=== PATIENT | female | born 1945 | race African-American/Black ===

== ENCOUNTER 2016-09-14 05:55 | Inpatient (IN) | payer OTHER, MEDICARE ==
[2016-09-14] VITALS (9 sets, daily range): BP systolic 121–200; BP diastolic 88–106; PULSE 55–89; RESP 16–18; TEMP 95.5–98.8; O2SAT 93–99
[~2016-09-14] VITALS: Ht 162.6 cm; Wt 59.8 kg
[~2016-09-14 05:55] MED LIST: CARV12.5 PO; CLON0.2T PO; FURO20TA PO; HYDRA25 PO; LOSA25 PO; ZOLO50TA PO
--- NOTE | 2016-09-14 06:37 | PD ---
HPI Chief Complaint: Fall Time Seen by Provider: 06:34 Travel History International Travel<30 days: No Contact w/Intl Traveler<30days: No Traveled to known affect area: No History of Present Illness HPI 70-year-old female arrives to the ER by EMS. She fell out of bed while asleep this morning. EMS was called and she was unable to ambulate or stand on her own. She was therefore brought to the ER. She does complain of pain in the right hip upon palpation in the region of the greater trochanter. High blood pressure observed by EMS as well. Compliance with antihypertensives is unknown. None is listed. EMS reports no medications and no PMH. PFSH Past Medical History Hx Anticoagulant Therapy: No Arthritis: No Asthma: No Autoimmune Disease: No Blood Disorders: No Anxiety: No Depression: Yes Heart Rhythm Problems: No Cancer: No Cardiac Catheterization: Yes Cardiovascular Problems: Yes High Cholesterol: No Chemotherapy: No Chest Pain: No Congestive Heart Failure: No COPD: No Cerebrovascular Accident: Yes Diabetes: No Diminished Hearing: No Endocrine: No Gastrointestinal Disorders: Yes GERD: No Glaucoma: No Gout: Yes Genitourinary: No Headaches: No Hiatal Hernia: No Hypertension: Yes Immune Disorder: No Kidney Stones: No Musculoskeletal: Yes Neurologic: Yes Psychiatric: No Reproductive: Yes Respiratory: No Myocardial Infarction: No Radiation Therapy: No Renal Failure: No Seizures: No Sickle Cell Disease: No Sleep Apnea: No Thyroid Disease: No Ulcer: No Influenza Vaccination: No Menopausal: Yes : 12 Para: 9 Miscarriage: 3 Tubal Ligation: Yes Past Surgical History Abdominal Surgery: No AICD: No Cardiac Surgery: No Ear Surgery: No Endocrine Surgery: No Eye Surgery: No Genitourinary Surgery: No Gynecologic Surgery: Yes (TUBAL) Joint Replacement: No Neurologic Surgery: No Oral Surgery: No Pacemaker: No Thoracic Surgery: No Other Surgery: Yes (LEFT LEG FOR CIRCULATION) Social History Alcohol Use: No Tobacco Use: Yes Substance Use: No Allergies-Medications (Allergen,Severity, Reaction): Coded Allergies: No Known Allergies (Verified , 09/14/16) Reported Meds & Prescriptions Reported Meds & Active Scripts Active Review of Systems Except as stated in HPI: all other systems reviewed are Neg General / Constitutional: No: Fever, Chills Musculoskeletal: Positive: Pain Physical Exam Narrative GENERAL: 70 yo F, somewhat lethargic but answering questions, odor of urine, ? UTI SKIN: Warm and dry. HEAD: Atraumatic. Normocephalic. EYES: Pupils equal and round. No scleral icterus. No injection or drainage. ENT: No nasal bleeding or discharge. Mucous membranes pink and moist. NECK: Trachea midline. No JVD. CARDIOVASCULAR: Regular rate and rhythm. RESPIRATORY: No accessory muscle use. Clear to auscultation. Breath sounds equal bilaterally. GASTROINTESTINAL: Abdomen soft, non-tender, nondistended. Hepatic and splenic margins not palpable. MUSCULOSKELETAL: Extremities without clubbing, cyanosis, or edema. No obvious deformities. Tenderness to palpation overlying the region of the greater trochanter. Tenderness with axial load. NEUROLOGICAL: Awake and alert. No obvious cranial nerve deficits. Motor grossly within normal limits. Five out of 5 muscle strength in the arms and legs. Normal speech. PSYCHIATRIC: Appropriate mood and affect; insight and judgment normal. Data Data Last Documented VS Vital Signs Date Time Temp Pulse Resp B/P Pulse Ox O2 Delivery O2 Flow Rate FiO2 09/14/16 05:59 98.8 89 16 121/104 93 VS reviewed Orders Electrocardiogram (09/14/16 06:34) Complete Blood Count With Diff (09/14/16 06:34) Comprehensive Metabolic Panel (09/14/16 06:34) Prothrombin Time / Inr (Pt) (09/14/16 06:34) Act Partial Throm Time (Ptt) (09/14/16 06:34) Urinalysis - C+S If Indicated (09/14/16 06:34) Chest, Single Ap (09/14/16 06:34) Femur (Ap & Lat/2vws) (09/14/16 06:34) Hip, Uni(Ap&Lat) W Ap Pelvis (09/14/16 06:34) Iv Access Insert/Monitor (09/14/16 06:34) Oximetry (09/14/16 06:34) Ecg Monitoring (09/14/16 06:34) Morphine Inj (Morphine Inj) (09/14/16 06:45) Ondansetron Inj (Zofran Inj) (09/14/16 06:45) Sodium Chloride 0.9% Flush (Ns Flush) (09/14/16 06:45) ^ Straight Catheter (09/14/16 06:36) Troponin I (09/14/16 06:36) Clonidine (Catapres) (09/14/16 06:45) MDM Medical Decision Making Medical Screen Exam Complete: Yes Emergency Medical Condition: Yes Medical Record Reviewed: Yes Differential Diagnosis UTI, electrolyte imbalance, hip fracture, rib fracture, pneumonia, dehydration Narrative Course Work up pending at time of dictation. Oncoming provider to follow up UA, labs, imaging. Favian Wynne MD Sep 14, 2016 06:37
[2016-09-14] MEDS ORDERED: SODIUM CHLORIDE 0.9% FLUSH 5 ML FLUSH IVF PRN (06:45)
[2016-09-14] MEDS ORDERED: ONDANSETRON HCL 4 MG/2 ML VIAL IVP ONE (06:45)
[2016-09-14] MEDS ORDERED: cloNIDine HCL 0.2 MG TAB PO ONE ×2 (06:45→09:30)
[2016-09-14] MEDS ORDERED: MORPHINE SULFATE 4 MG/ML INJ IV PUSH ONE (06:45)
[2016-09-14 07:10] LABS: AUTOMATED NEUTROPHIL # 3.3 TH/MM3 (1.8-7.7); BASOPHIL # 0.1 TH/MM3 (0-0.2); BASOPHIL % 1.1 % (0.0-2.0); EOSINOPHIL # 0.1 TH/MM3 (0-0.4); EOSINOPHIL % 2.2 % (0.0-4.0); HEMATOCRIT 32.1 % (35.0-46.0); HEMO FLAGS DIFF FINAL; LYMPH % 34.6 % (9.0-44.0); MEAN CELL VOLUME 87.5 FL (80.0-100.0); MEAN CORPUSCULAR HEMOGLOBIN 29.2 PG (27.0-34.0); MEAN CORPUSCULAR HGB CONC 33.4 % (32.0-36.0); MONO % 4.5 % (0.0-8.0); NEUT % 57.6 % (16.0-70.0); PLATELET COUNT 211 TH/MM3 (150-450); RED BLOOD COUNT 3.67 MIL/MM3 (4.00-5.30); RED CELL DISTRIBUTION WIDTH 13.9 % (11.6-17.2); WHITE BLOOD COUNT 5.7 TH/MM3 (4.0-11.0)
[2016-09-14 07:28] LABS: ANION GAP 9 MEQ/L (5-15); APTT (PATIENT) 29.9 SEC (24.3-30.1); AST (GOT) 22 U/L (15-37); BICARBONATE 19.6 MEQ/L (21.0-32.0); BLOOD UREA NITROGEN 46 MG/DL (7-18); CHLORIDE 110 MEQ/L (98-107); GLOMERULAR FILTRATION RATE 20 ML/MIN (>89); PROTHROMBIN TIME - PATIENT 11.4 SEC (9.8-11.6); SODIUM (NA) 139 MEQ/L (136-145)
[2016-09-14 07:30] LABS: BACTERIA, URINE FEW /hpf; BLOOD, URINE MOD (NEG); GLUCOSE,URINE NEG (NEG); KETONE, URINE NEG (NEG); NITRITE,URINE NEG (NEG); SQUAMOUS EPITHELIAL CELL URINE 8 /hpf (0-5); URINE COLOR LIGHT-YELLOW (YELLW/STRAW)
[2016-09-14 07:33] LABS: COMMENT (UR) CATH-CULTURE IND; CULTURE IF INDICATED CATH CULTURE IND
[2016-09-14 07:37] LABS: ALKALINE PHOSPHATASE 75 U/L (45-117); ALT (GPT) 24 U/L (10-53); TOTAL BILIRUBIN ADULT 0.4 MG/DL (0.2-1.0)
--- NOTE | 2016-09-14 07:53 | RADRPT ---
EXAM DATE/TIME: 09/14/2016 07:12 [facility] COMPARISON: No previous studies available for comparison. INDICATIONS : Pain from fall. MEDICAL HISTORY : None. SURGICAL HISTORY : None. ENCOUNTER: Initial ACUITY: 1 day PAIN SCORE: 5/10 LOCATION: Right femur. FINDINGS: Two view examination of the right femur demonstrates no evidence of fracture or dislocation. Bony mi neralization is reduced. The soft tissue structures are intact. Diffuse calcified plaque throughout t he outflow vessels. Some calcification of the menisci. See the hip reported separately. CONCLUSION: No acute abnormality. Fito Diaz Jr., MD on September 14, 2016 at 7:42 Board Certified Radiologist. This report was verified electronically.
--- NOTE | 2016-09-14 08:00 | RADRPT ---
EXAM DATE/TIME: 09/14/2016 07:19 [facility] COMPARISON: CHEST SINGLE AP, September 29, 2011, 11:44. INDICATIONS : Pain from fall. MEDICAL HISTORY : None. SURGICAL HISTORY : None. ENCOUNTER: Initial ACUITY: 1 day PAIN SCORE: 5/10 LOCATION: Back, midline. FINDINGS: A single supine frontal view of the chest shows mild cardiomegaly that is stable. Aorta is mildly tor tuous. Lungs are clear without infiltrate or effusion. Bony structures are unremarkable with the exce ption of a mild scoliotic curvature of the thoracic spine. CONCLUSION: Mild cardiomegaly. No acute cardio pulmonary disease. Fito Diaz Jr., MD on September 14, 2016 at 7:53 Board Certified Radiologist. This report was verified electronically.
--- NOTE | 2016-09-14 08:01 | RADRPT ---
EXAM DATE/TIME: 09/14/2016 07:09 [facility] COMPARISON: No previous studies available for comparison. INDICATIONS : Pain from fall. MEDICAL HISTORY : None. SURGICAL HISTORY : None. ENCOUNTER: Initial ACUITY: 1 day PAIN SCORE: 5/10 LOCATION: Right pelvis FINDINGS: Examination of the right hip was performed with AP Pelvis. The primary and secondary trabecular natalie serg of the femoral neck is intact. The hip joint is of normal width without significant sclerosis or bony hypertrophy. Diffuse osteopenia. The acetabulum is grossly intact. Atherosclerotic changes. CONCLUSION: Osteopenia. No acute abnormality. Fito Diaz Jr., MD on September 14, 2016 at 7:59 Board Certified Radiologist. This report was verified electronically.
[2016-09-14] MEDS: SODIUM CHLOR 0.9% 1000 ML INJ 1,000 ML IV SCH ×2 (09:15→20:05)
[2016-09-14] MEDS ORDERED: cefTRIAXone INJ 1,000 MG in SODIUM CHLORIDE 0.9% INJ 100 ML IV ONE (09:15)
[2016-09-14] MEDS ORDERED: NALOXONE HCL 0.4 MG/ML AMP IV PRN (09:30)
[2016-09-14] MEDS ORDERED: SODIUM CHLORIDE 0.9% FLUSH 5 ML FLUSH FLUSH PRN (09:30)
[2016-09-14] MEDS: CARVEDILOL 12.5 MG TAB PO SCH ×2 (09:57→20:04)
[2016-09-14] MEDS: HEPARIN SODIUM - SQ 10,000 UNITS/ML VIAL SQ SCH (09:57)
[2016-09-14] MEDS ORDERED: hydrALAZINE HCL 25 MG TAB PO ONE (10:00)
--- NOTE | 2016-09-14 10:09 | PD ---
Physical Exam Date Seen by Provider: Sep 14, 2016 Time Seen by Provider: 08:20 Narrative Shows sinus me by Dr. Hong Wynne at 7 AM. It was shift change. We're awaiting laboratory tests. The laboratory tests confirm a UTI. The patient also has acute on chronic kidney injury. Given this, patient will be admitted to the hospital Saturday hydration. She's also been started on Rocephin 1 g. I discussed the findings with both the patient and her family and they're amenable to the plan. Data Data Last Documented VS Vital Signs Date Time Temp Pulse Resp B/P Pulse Ox O2 Delivery O2 Flow Rate FiO2 09/14/16 08:50 77 17 200/106 98 Room Air 09/14/16 05:59 98.8 Orders Electrocardiogram (09/14/16 06:34) Complete Blood Count With Diff (09/14/16 06:34) Comprehensive Metabolic Panel (09/14/16 06:34) Prothrombin Time / Inr (Pt) (09/14/16 06:34) Act Partial Throm Time (Ptt) (09/14/16 06:34) Urinalysis - C+S If Indicated (09/14/16 06:34) Chest, Single Ap (09/14/16 06:34) Femur (Ap & Lat/2vws) (09/14/16 06:34) Hip, Uni(Ap&Lat) W Ap Pelvis (09/14/16 06:34) Iv Access Insert/Monitor (09/14/16 06:34) Oximetry (09/14/16 06:34) Ecg Monitoring (09/14/16 06:34) Morphine Inj (Morphine Inj) (09/14/16 06:45) Ondansetron Inj (Zofran Inj) (09/14/16 06:45) Sodium Chloride 0.9% Flush (Ns Flush) (09/14/16 06:45) ^ Straight Catheter (09/14/16 06:36) Troponin I (09/14/16 06:36) Clonidine (Catapres) (09/14/16 06:45) Urine Culture (09/14/16 06:45) Ceftriaxone Inj (Rocephin Inj) (09/14/16 09:15) Sodium Chlor 0.9% 1000 Ml Inj (Ns 1000 M (09/14/16 09:15) Clonidine (Catapres) (09/14/16 09:30) Admit Order (Ed Use Only) (09/14/16 09:26) Labs Laboratory Tests Test 09/14/16 06:45 White Blood Count 5.7 TH/MM3 Red Blood Count 3.67 MIL/MM3 Hemoglobin 10.7 GM/DL Hematocrit 32.1 % Mean Corpuscular Volume 87.5 FL Mean Corpuscular Hemoglobin 29.2 PG Mean Corpuscular Hemoglobin 33.4 % Concent Red Cell Distribution Width 13.9 % Platelet Count 211 TH/MM3 Mean Platelet Volume 9.6 FL Neutrophils (%) (Auto) 57.6 % Lymphocytes (%) (Auto) 34.6 % Monocytes (%) (Auto) 4.5 % Eosinophils (%) (Auto) 2.2 % Basophils (%) (Auto) 1.1 % Neutrophils # (Auto) 3.3 TH/MM3 Lymphocytes # (Auto) 2.0 TH/MM3 Monocytes # (Auto) 0.3 TH/MM3 Eosinophils # (Auto) 0.1 TH/MM3 Basophils # (Auto) 0.1 TH/MM3 CBC Comment DIFF FINAL Differential Comment Prothrombin Time 11.4 SEC Prothromb Time International 1.0 RATIO Ratio Activated Partial 29.9 SEC Thromboplast Time Urine Color LIGHT-YELLOW Urine Turbidity HAZY Urine pH 6.0 Urine Specific [place] 1.010 Urine Protein 100 mg/dL Urine Glucose (UA) NEG mg/dL Urine Ketones NEG mg/dL Urine Occult Blood MOD Urine Nitrite NEG Urine Bilirubin NEG Urine Urobilinogen LESS THAN 2.0 MG/DL Urine Leukocyte Esterase LARGE Urine RBC 70 /hpf Urine WBC 68 /hpf Urine WBC Clumps MANY Urine Squamous Epithelial 8 /hpf Cells Urine Bacteria FEW /hpf Microscopic Urinalysis Comment CATH-CULTURE IND Sodium Level 139 MEQ/L Potassium Level 4.0 MEQ/L Chloride Level 110 MEQ/L Carbon Dioxide Level 19.6 MEQ/L Anion Gap 9 MEQ/L Blood Urea Nitrogen 46 MG/DL Creatinine 2.82 MG/DL Estimat Glomerular Filtration 20 ML/MIN Rate Random Glucose 104 MG/DL Calcium Level 9.5 MG/DL Total Bilirubin 0.4 MG/DL Aspartate Amino Transf 22 U/L (AST/SGOT) Alanine Aminotransferase 24 U/L (ALT/SGPT) Alkaline Phosphatase 75 U/L Troponin I 0.22 NG/ML Total Protein 8.4 GM/DL Albumin 3.4 GM/DL [facility] Medical Record Reviewed: Yes Supervised Visit with ABBI: No Interpretation(s) Last Impressions Hip and Pelvis X-Ray 09/14/16633 Signed Impressions: Service Date/Time: Wednesday, September 14, 2016 07:09 - CONCLUSION: Osteopenia. No acute abnormality. Fito Diaz Jr., MD Femur X-Ray 09/14/16633 Signed Impressions: Service Date/Time: Wednesday, September 14, 2016 07:12 - CONCLUSION: No acute abnormality. Fito Diaz Jr., MD Chest X-Ray 09/14/16633 Signed Impressions: Service Date/Time: Wednesday, September 14, 2016 07:19 - CONCLUSION: Mild cardiomegaly. No acute cardio pulmonary disease. Fito Diaz Jr., MD Narrative Course 70-year-old female who had a fall. Patient presents with complaints of weakness. Patient also had right hip pain. X-ray the hip and pelvis show no fracture dislocation. Checks x-ray shows cardiomegaly otherwise negative for infiltrate or failure. The patient was given I V hydration at 84 cc per hour show some be given 1 g Rocephin. Case was discussed with Dr. Juanpablo Butler, on -call hospice, who is graciously agreed to admit the patient to his service. Diagnosis Primary Impression: UTI (urinary tract infection) Additional Impressions: [id number] kidney injury Dehydration Contusion, hip Issa Felton MD Sep 14, 2016 10:09
--- NOTE | 2016-09-14 11:42 | RADRPT ---
EXAM DATE/TIME: 09/14/2016 10:20 [facility] COMPARISON: No previous studies available for comparison. INDICATIONS : Abnormal labs. MEDICAL HISTORY : Stroke. Hypertension. Gout. SURGICAL HISTORY : Tubal ligation. ENCOUNTER: Initial ACUITY: 1 day PAIN SCORE: 4/10 LOCATION: Bilateral flank MEASUREMENTS: RIGHT KIDNEY: 8.3 x 4.2 x 5.0 cm LEFT KIDNEY: 9.7 x 4.9 x 5.5 cm FINDINGS: RIGHT KIDNEY: There is increased echogenicity throughout the renal parenchyma. No hydronephrosis. There is a questi onable echogenic stone in the lower pulmonary showing 1.8 cm. LEFT KIDNEY: There is increased echogenicity of the renal parenchyma Mild hydronephrosis. There is a cyst along th e upper pole measuring 2.9 cm. There is a cyst along the upper pole measuring 1.5 cm. BLADDER: Within normal limits given the degree of distension. CONCLUSION: 1. Increased echogenicity of the renal parenchyma. This is usually associated with chronic medical re nal disease. 2. Mild hydronephrosis of the left collecting system. 3. Benign appearing left renal cysts. 4. Possible nonobstructing right kidney stone. Recommend noncontrast CT abdomen as clinically indicat ed. Elías Mares MD on September 14, 2016 at 11:38 Board Certified Radiologist. This report was verified electronically.
--- NOTE | 2016-09-14 12:06 | HHI.HP ---
[facility] Sparkle Maldonado M.D. Admission Diagnosis Uti, acute on chronic kidney injury, uncontrolled hypertension. Diagnoses: Chief Complaint: fall, weakness Travel History International Travel<30 Days: No Contact w/Intl Traveler <30 Da: No Traveled to Known Affected Are: No History of Present Illness 70-year-old female with history of hypertension, edema, CKD, weakness presents after falling out the bed last night 09/13. The patient tried getting out of bed last night to use the restroom however fell from the bed. She was found this morning around 4am by family members. It is unknown how long she was on the floor. Per her daughters at bedside, the patient ran out of her medications 1 month ago and they have had trouble getting her into see her PCP Dr. Sparkle Maldonado. The family states when she was on the medications, she was more drowsy and slept a lot, however since she went off her medications, she has been more active over the past month. Now over the past 2 days, the patient has pretty much stayed in bed and slept, complained of being cold but no fevers. The family reports recent diarrhea approximately 2 weeks ago but it went away on its own. Denies any recent headache, lightheadedness, dizziness, unilateral numbness/weakness, chest pain, shortness of breath, or abdominal complaints. Denies any dysuria, suprapubic pain, increased urinary frequency/urgency. The patient did complain of right hip/leg pain upon arrival and was given IV morphine with relief however patient was quite drowsy throughout exam. Review of Systems ROS Limitations: Poor Historian Constitutional: COMPLAINS OF: Fatigue, Chills, DENIES: Diaphoretic episodes, Fever, Dizziness, Change in appetite Endocrine: DENIES: Polydipsia, Polyuria, Polyphagia Eyes: DENIES: Blurred vision, Vision loss, Double Vision Ears, nose, mouth, throat: DENIES: Throat pain, Running Nose, Sinus Pain, Odynophagia Respiratory: DENIES: Cough, Shortness of breath Cardiovascular: DENIES: Chest pain, Palpitations, Dyspnea on Exertion Gastrointestinal: DENIES: Abdominal pain, Constipation, Diarrhea, Nausea, Vomiting Genitourinary: COMPLAINS OF: Urinary incontinence, DENIES: Urinary frequency, Urgency, Dysuria Musculoskeletal: COMPLAINS OF: Joint pain, DENIES: Back pain, Neck pain Integumentary: DENIES: Abnormal pigmentation, Pruritus, Rash Hematologic/lymphatic: DENIES: Bruising, Lymphadenopathy Immunologic/allergic: DENIES: Eczema, Urticaria Neurologic: DENIES: Headache, Localized weakness, Paresthesias Psychiatric: DENIES: Anxiety, Depression Past Family Social History Past Medical History Hypertension Edema CKD Past Surgical History Tubal Ligation Cardiac catheterization 8 years ago reportedly clean Lower extremity vascular procedure Reported Medications Has not taken medications in 1 month, however previously on: fluoxetine clonidine PCP took her off lisinopril in the past due to her kidneys Allergies: Coded Allergies: No Known Allergies (Verified , 09/14/16) Active Ordered Medications Current Medications Medications (Trade) Dose Ordered Sig/Lenora Route Start Time Stop Time Status Last Admin (NS 1000 ml Inj) 1,000 ml @ 84 mls/hr [id number] IV 09/14/16 09:15 09/14/16 09:15 (NS Flush) 2 ml UNSCH PRN FLUSH 09/14/16 09:30 (NS Flush) 2 ml BID FLUSH 09/14/16 21:00 (Heparin Inj) 5,000 units Q12H SQ 09/14/16 10:00 09/14/16 09:57 (Narcan Inj) 0.4 mg UNSCH PRN IV 09/14/16 09:30 (Coreg) 12.5 mg Q12HR PO 09/14/16 10:00 09/14/16 09:57 (Apresoline) 25 mg Q12HR PO 09/14/16 21:00 Family History Patient does not remember family history. Social History Denies any tobacco, alcohol, or illicit drug use. Physical Exam Vital Signs Vital Signs Date Time Temp Pulse Resp B/P Pulse Ox O2 Delivery O2 Flow Rate FiO2 09/14/16 10:54 68 17 186/91 99 Room Air 09/14/16 09:29 97.8 70 17 200/100 97 Room Air 09/14/16 08:50 77 17 200/106 98 Room Air 09/14/16 07:34 17 2/24/17 07:27 76 17 98 Room Air 09/14/16 07:27 78 17 200/106 97 Room Air 09/14/16 07:27 17 98 Room Air 09/14/16 05:59 98.8 89 16 121/104 93 Physical Exam GENERAL: Well-nourished, well-developed elderly female patient in NAD. Drowsy. SKIN: Warm and dry. No rash. HEAD: Normocephalic. Atraumatic. EYES: Pupils equal and round. No scleral icterus. No injection or drainage. ENT: No nasal bleeding or discharge. Mucous membranes pink and moist. NECK: Supple. Trachea midline. CARDIOVASCULAR: Regular rate and rhythm. S1, S2 noted. No murmur appreciated. RESPIRATORY: No accessory muscle use. Clear to auscultation. Breath sounds equal bilaterally. GASTROINTESTINAL: Abdomen soft, non-tender, nondistended. Normoactive bowel sounds x4. MUSCULOSKELETAL: No obvious deformities. Trace bilateral lower extremity edema. NEUROLOGICAL: Awake and alert, but drowsy. No obvious cranial nerve deficits. Motor grossly within normal limits. 5/5 strength b/l upper extremities; wiggles toes but does not participate in strength testing of legs. Normal speech. No facial droop. PSYCHIATRIC: Appropriate mood and affect; insight and judgment limited. Laboratory Laboratory Tests Test 09/14/16 09/14/16 06:45 11:07 White Blood Count 5.7 Red Blood Count 3.67 Hemoglobin 10.7 Hematocrit 32.1 Mean Corpuscular Volume 87.5 Mean Corpuscular Hemoglobin 29.2 Mean Corpuscular Hemoglobin 33.4 Concent Red Cell Distribution Width 13.9 Platelet Count 211 Mean Platelet Volume 9.6 Neutrophils (%) (Auto) 57.6 Lymphocytes (%) (Auto) 34.6 Monocytes (%) (Auto) 4.5 Eosinophils (%) (Auto) 2.2 Basophils (%) (Auto) 1.1 Neutrophils # (Auto) 3.3 Lymphocytes # (Auto) 2.0 Monocytes # (Auto) 0.3 Eosinophils # (Auto) 0.1 Basophils # (Auto) 0.1 CBC Comment DIFF FINAL Differential Comment Prothrombin Time 11.4 Prothromb Time International 1.0 Ratio Activated Partial 29.9 Thromboplast Time Urine Color LIGHT-YELLOW Urine Turbidity HAZY Urine pH 6.0 Urine Specific [place] 1.010 Urine Protein 100 Urine Glucose (UA) NEG Urine Ketones NEG Urine Occult Blood MOD Urine Nitrite NEG Urine Bilirubin NEG Urine Urobilinogen LESS THAN 2.0 Urine Leukocyte Esterase LARGE Urine RBC 70 Urine WBC 68 Urine WBC Clumps MANY Urine Squamous Epithelial 8 Cells Urine Bacteria FEW Microscopic Urinalysis Comment CATH-CULTURE IND Sodium Level 139 Potassium Level 4.0 Chloride Level 110 Carbon Dioxide Level 19.6 Anion Gap 9 Blood Urea Nitrogen 46 Creatinine 2.82 Estimat Glomerular Filtration 20 Rate Random Glucose 104 Calcium Level 9.5 Total Bilirubin 0.4 Aspartate Amino Transf 22 (AST/SGOT) Alanine Aminotransferase 24 (ALT/SGPT) Alkaline Phosphatase 75 Troponin I 0.22 0.19 Total Protein 8.4 Albumin 3.4 Total Creatine Kinase 127 B-Type Natriuretic Peptide 990 Date/Time Procedure Status Source Growth 09/14/16 06:45 Urine Culture Received Urine Catheterized Urine Pending Result Diagram: 09/14/1645 09/14/1645 Imaging Last Impressions Hip and Pelvis X-Ray 09/14/16633 Signed Impressions: Service Date/Time: Wednesday, September 14, 2016 07:09 - CONCLUSION: Osteopenia. No acute abnormality. Fito Diaz Jr., MD Femur X-Ray 09/14/1634 Signed Impressions: Service Date/Time: Wednesday, September 14, 2016 07:12 - CONCLUSION: No acute abnormality. Fito Diaz Jr., MD Chest X-Ray 09/14/1634 Signed Impressions: Service Date/Time: Wednesday, September 14, 2016 07:19 - CONCLUSION: Mild cardiomegaly. No acute cardio pulmonary disease. Fito Diaz Jr., MD Renal Ultrasound 09/14/16 0000 Signed Impressions: Service Date/Time: Wednesday, September 14, 2016 10:20 - CONCLUSION: 1. Increased echogenicity of the renal parenchyma. This is usually associated with chronic medical renal disease. 2. Mild hydronephrosis of the left collecting system. 3. Benign appearing left renal cysts. 4. Possible nonobstructing right kidney stone. Recommend noncontrast CT abdomen as clinically indicated. Elías Mares MD Assessment and Plan Assessment and Plan 70-year-old female with history of hypertension, edema, CKD, weakness presents after falling out the bed last night. Generalized weakness/fatigue with encephalopathy: likely multifactorial secondary to UTI, hypertensive encephalopathy, CHF exacerbation, dehydration, and recent fall. See treatment below. Checking ABG. Hypertensive Encephalopathy secondary to Accelerated HTN: BP 200/106 upon arrival. Secondary to noncompliance with medications. S/p clonidine, hydralazine , coreg in the ED. BP still elevated. Started on hydralazine, Coreg, Nifedipine. Cannot have SHELL/ARB secondary to TRUDI/CKD. Monitor BP, adjust antihypertensives as needed. UTI: UA with large leuks, many WBCs. Continue with IV Rocephin. Monitor urine culture. Possible CHF Exacerbation: BNP elevated at 990. CXR with mild cardiomegaly, no acute findings, images reviewed by me. Trace edema of b/l lower extremities. Echo 09/06/15 showed normal systolic function EF 55-60%, mild MR, mild TR, mild to mod increased pulmonary arterial pressure. Hold diuresis for now, giving gentle hydration with IVF. 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 Elevated Troponins: no complaints of chest pain. EKG with no acute ST elevation/ depression. Trend enzymes/EKGs. Consulted cardiology. Monitor on telemetry. TRUDI on CKD, stage III: suspect hypertensive renal disease. RTUDI secondary to dehydration with decreased recent oral intake. Give gentle hydration with IVF at 84ml/hr. Avoid nephrotoxins. Monitor BMP. Pulmonary Hypertension: seen on previous echo as above. Consult pulmonology and cardiology. Fall, Hip Pain: pt fell out of bed prior to arrival. Hip/pelvis and femur xray negative for fracture. Consult PT. DVT Prophylaxis: heparin sq Written by Tri Banegas, acting as scribe for Dr. Butler on 09/14/16 at 12: 25. The documentation accurately reflects the work performed [id number] by me on at 12:25. Discussed Condition With Patient, 2 family members at bedside, ER Physician Certification 2 Midnight Certification Type: Admission for Inpatient Services Order for Inpatient Services The services are ordered in accordance with Medicare regulations or non- Medicare payer requirements, as applicable. In the case of services not specified as inpatient-only, they are appropriately provided as inpatient services in accordance with the 2-midnight benchmark. Estimated LOS (days): 3 days is the estimated time the patient will need to remain in the hospital, assuming treatment plan goals are met and no additional complications. Post-Hospital Plan: Not yet determined Tri Banegas PA-C Sep 14, 2016 12:06 Juanpablo Butler MD Sep 14, 2016 19:25
[2016-09-14 12:41] LABS: BLOOD GAS BASE EXCESS -6.9 mmol/L (-2-2); BLOOD GAS CARBOXYHEMOGLOBIN 2.1 % (0-4); BLOOD GAS HCO3 18 mmol/L (22-26); BLOOD GAS METHEMOGLOBIN 1.9 % (0-2); BLOOD GAS O2 HGB SATURATION 89 % (90-100); BLOOD GAS OXYGEN CONTENT 11.2 Vol % (12.0-20.0); BLOOD GAS PCO2 37 mmHg (38-42); BLOOD GAS PO2 68 mmHG (61-120); BLOOD GAS TOTAL HGB 8.9 G/DL (12.0-16.0); TEMP CORR TO 98.6
[2016-09-14 12:42] LABS: CRITICAL VALUE YES; DRAW SITE RT RADIAL; FIO2 21 %; NUMBER OF ARTERIAL PUNCTURES 1; STAT YES; ULNAR PULSE PRESENT
[2016-09-14] MEDS ORDERED: NIFEdipine 60 MG SUSTAINED RELEASE TAB PO ONE (16:00)
[2016-09-14] MEDS: cefTRIAXone INJ 1,000 MG in SODIUM CHLORIDE 0.9% INJ 100 ML IV SCH (16:12)
--- NOTE | 2016-09-14 17:30 | EKG ---
Date Performed: 09/14/2016 Time Performed: 06:16:36 PTAGE: 70 years EKG: Sinus rhythm LEFT VENTRICULAR HYPERTROPHY AND ST-T CHANGE Since previous tracing, no significant change noted ABN ORMAL ECG PREVIOUS TRACING : 09/06/2015 20.05 DOCTOR: Maryuri Jaquez Interpretating Date/Time 09/14/2016 17:27:30
[2016-09-14] MEDS ORDERED: FUROSEMIDE 40 MG/4 ML VIAL IV PUSH SCH (18:00)
--- NOTE | 2016-09-14 19:09 | MB ---
cc: TAYLA CARRILLO M.D. DATE OF CONSULTATION: 09/14/2016. REASON FOR CONSULTATION: HISTORY OF PRESENT ILLNESS: Doris is a 70-year-old lady who had a fall at home. She is accompanied by her family. The patient does not give any history. The family states that the patient has a history of lower extremity weakness, particularly when she is going to the bathroom and she had a fall and fell to her side. When EMS arrived, the patient was reported not able to ambulate or stand on her own. She was noted be hypertensive by EMS. Otherwise, no obvious chest pain, fevers, chills, cough, GI or bleeding, paroxysmal nocturnal dyspnea, orthopnea, syncope or dizziness. PAST MEDICAL HISTORY: Her past medical history is as per the history of present illness. 1. History of depression. 2. Cardiac catheterization. 3. CVA. 4. Gout. 5. Hypertension. 6. Tubal ligation. 7. Surgery on the left leg for "circulation". SOCIAL HISTORY: Denies alcohol use. Does smoke. ALLERGIES: NONE. MEDICATIONS IN THE HOSPITAL: 1. Procardia 60 milligrams daily. 2. Hydralazine 25 q. 12 hours. 3. Ceftriaxone. 4. Heparin 5000 q. 12 hours. 5. Carvedilol 12.5 milligrams q. 12 hours. She had an echocardiogram on September 06, 2015, which showed an ejection fraction of 55% to 60%, mild mitral regurgitation and mild tricuspid regurgitation, PA pressure 53 mmHg. PHYSICAL EXAMINATION: VITAL SIGNS: Blood pressure initially 200/106 and currently 197/100, temperature 96.8, pulse 58, respiratory rate 18, saturations 97% on room air. GENERAL: She is lethargic and oriented times 0 to 1 and in no acute distress. NECK: The neck is supple. No jugular venous distention. No bruits. CARDIOVASCULAR EXAM: S1 and S2. No murmurs, rubs or gallops. LUNGS: Clear to auscultation bilaterally. ABDOMEN: The abdomen is soft, nontender and nondistended with positive bowel sounds. EXTREMITIES: No lower extremity edema. LABS: White count 5.7, hemoglobin 10.7, hematocrit 32.1, platelet count 211,000. Sodium 139, potassium 4.0, chloride 110, bicarbonate 19.6, BUN 46, creatinine 2.82. Troponin is 0.22, 0.19 and 0.19. BNP is 990. INR is 1.0. Blood gas: Her pH is 7.1, pC02 37, p02 68 on room air. IMAGING STUDIES: Renal ultrasound shows increased echogenicity of the renal parenchyma usually associated with chronic medical renal disease, mild hydronephrosis of the left collecting system, benign-appearing left renal cyst, possible non-obstructing right kidney stone. Pelvis x-ray shows osteopenia, no acute abnormality. Femur x-ray shows no acute abnormality. Chest x-ray shows mild cardiomegaly. No acute cardiopulmonary disease. EKGS: EKG shows normal sinus rhythm with anterolateral ischemia, left ventricular hypertrophy, and possible strain versus ischemia. DIAGNOSES: She has the following diagnoses: 1. NSTEMI. 2. Unsteady gait. 3. Fall. 4. Acute renal failure. 5. Hypertension. 6. History of pulmonary hypertension. 7. Altered mental status. 8. Hypoxia 9. Metabolic acidosis. 10. Anemia 11. Decompensated congestive heart failure. DISCUSSION: At this point in time, I do not think the patient has a primary obstructive coronary event. I suspect her troponin is elevated due to severe hypertension and this is secondary event from increased demand from increased wall tension. I agree with current blood pressure medications but would be cautious about too precipitous a blood pressure decrease due to cerebral autoregulation concerns and precipitating a hypotensive cerebrovascular accident. I suspect with better blood pressure control her decompensated congestive heart failure will also improved. Part of her heart failure may also be related to volume overload from acute renal failure as well. Due to severely elevated blood pressure and altered mental status, would be cautious with anticoagulation. The patient should be treated with baby aspirin daily, but given the fact she is on heparin with severely elevated blood pressure and asymptomatic, will hold the aspirin until her blood pressure is better controlled. MD ELIJAH Rose/JESSICA /5:52 PM /6:48 PM
[2016-09-14] MEDS: SODIUM CHLORIDE 0.9% FLUSH 5 ML FLUSH FLUSH SCH (20:04)
[2016-09-14] MEDS: hydrALAZINE HCL 25 MG TAB PO SCH (20:04)
--- NOTE | 2016-09-14 20:04 | RADRPT ---
EXAM DATE/TIME: 09/14/2016 19:43 [facility] COMPARISON: No previous studies available for comparison. INDICATIONS : Kidney infection; evaluate for hydronephrosis. ORAL CONTRAST: No oral contrast ingested. RADIATION DOSE: 5.03 CTDIvol (mGy) MEDICAL HISTORY : Cerebrovascular disease. Hypertension. Cardiovascular disease SURGICAL HISTORY : Tubal ligation. ENCOUNTER: Initial ACUITY: 1 day PAIN SCALE: 3/10 LOCATION: Abdomen/pelvis TECHNIQUE: Volumetric scanning of the abdomen and pelvis was performed. Using automated exposure control and ad justment of the mA and/or kV according to patient size, radiation dose was kept as low as reasonably achievable to obtain optimal diagnostic quality images. FINDINGS: LOWER LUNGS: Mild atelectasis/infiltrate at of the visualized lung bases. There is panchamber enlargement of the h eart and coronary artery calcification. LIVER: Homogeneous density without lesion. There is no dilation of the biliary tree. No calcified gallston es. SPLEEN: Normal size without lesion. PANCREAS: There is a suspected mass inferiorly the pancreatic head, 2.5 x 2.9 x 3.1 cm in size. The rest of the pancreas has a normal noncontrast appearance. KIDNEYS: Normal in size and shape. There is no mass, stone, or hydronephrosis. Extensive renal vascular calci fication noted. ADRENAL GLANDS: Within normal limits. VASCULAR: Severe and diffuse atherosclerotic calcification involves the abdominal aorta and branch vessels. No aneurysm. BOWEL/MESENTERY: Nonobstructive bowel gas pattern. No inflammatory changes are seen. Moderate stool in the rectum. Debbie endix well visualized, normal. ABDOMINAL WALL: Within normal limits. RETROPERITONEUM: There is no lymphadenopathy. BLADDER: No wall thickening or mass. REPRODUCTIVE: Probably a 16mm fibroid of the fundus. INGUINAL: There is no lymphadenopathy or hernia. MUSCULOSKELETAL: No acute bony abnormality. CONCLUSION: 1. No stones, hydronephrosis or other acute abnormalities seen of the kidneys. 2. Suspected mass of the pancreatic head. Further attempted characterization with a nonemergent contr ast enhanced study is recommended, preferably abdomen MRI. 3. Severe chronic vascular disease. 4. Mild airspace opacities of both visualized lung bases. 5. Panchamber enlargement of the heart and coronary artery calcification. Sanket Marinelli MD on September 14, 2016 at 19:57 Board Certified Radiologist. This report was verified electronically.
--- NOTE | 2016-09-14 20:32 | MB ---
cc: MELISSA ESTRADA DATE OF CONSULTATION 09/14/[address] Butler REASON FOR CONSULTATION Evaluate for pulmonary hypertension HISTORY OF PRESENT ILLNESS Ms. Noel is a pleasant 70-year -[place] female with history of hypertension, three CVAs. The patient lives with daughter. Her other daughter is at the bedside. She tells me that her daughter and nephew went out. They came around 3 o'clock in the morning and found her on the floor. The patient says that she tried to get up to go to the bathroom and fell on the floor. It is not clear how long she was on the floor. She has a walker but does not like using it. Denies any loss of consciousness. The patient was evaluated in the emergency room. She has uncontrolled hypertension. Blood pressure was 200/106. She had an x-ray of the femur and pelvis which were negative. Chest x-ray shows mild cardiomegaly. CBC showed WBC count 5.7, hemoglobin 10.7, hematocrit 32.1, MCV 87, platelet count 211. Sodium 139, potassium 4.0 chloride 110, CO2 20, BUN 46, creatinine 2.82. Blood gas - pH 7.31, pCO2 37, pO2 68 on room air. PAST MEDICAL HISTORY 1. History of hypertension, 2. Chronic kidney disease 3. Three strokes in the past 4. Arthritis. MEDICATIONS Currently taking 1. Nifedipine 60 mg a day. 2. Hydralazine 25 mg q. 12. 3. Rocephin 1 gram a day. 4. Heparin 5000 q.12 h. 5. Coreg 12.5 mg twice a day. ALLERGIES NO KNOWN DRUG ALLERGIES. SOCIAL HISTORY She is a , lives with her daughter and grandson. She has history of smoking which she quit some time ago. No alcohol use. FAMILY HISTORY She has nine children. The patient worked in the [employer]. REVIEW OF SYSTEMS She walks only short distance, uses a walker but sometimes she does not like using it. No malignancy. No DVT or pulmonary embolism. PHYSICAL EXAMINATION GENERAL: A thin-built elderly female, somewhat confused, not in acute distress. VITAL SIGNS: Blood pressure 197/100, heart rate 50, respiration 18, temperature 96.8 HEENT: Pupils are equal and reactive to light. Oral mucosa and nasal mucosa normal. NECK: Supple. JVP not raised. CHEST: Equal bilaterally, no rhonchi. CARDIOVASCULAR: S1, S2 normal. ABDOMEN: Benign. EXTREMITIES: No edema. IMPRESSION 1. Pulmonary hypertension noted on the previous echocardiogram. Her RSV is 53, need to rule out underlying obstructive restrictive lung disease. She has long history of smoking. 2. Uncontrolled hypertension. 3. Cerebrovascular accident. 4. Fall PLAN I discussed with the patient and her daughter we will check her pulmonary function study. Supplemental oxygen. Control her blood pressure monitor. Monitor electrolytes. Further treatment will depend on the course in the hospital. Thank you, Dr. Butler, for this consultation. MD ARTEM Toro/SA /7:13 PM /8:16 PM
--- NOTE | 2016-09-14 21:35 | EKG ---
Date Performed: 09/14/2016 Time Performed: 12:36:36 PTAGE: 70 years EKG: Sinus rhythm WITH OCCASIONAL SUPRAVENTRICULAR PREMATURE COMPLEXES POSSIBLE LEFT VENTRICULAR HYPERTROPHY DIFFUSE T WAVE ABNORMALITY, CONSIDER ISCHEMIA ABNORMAL ECG PREVIOUS TRACING : 09/14/2016 06.16 No significant change from previous tracing noted. DOCTOR: Tone Lopez Interpretating Date/Time 09/14/2016 21:34:01
[2016-09-15] VITALS (9 sets, daily range): BP systolic 109–194; BP diastolic 61–95; PULSE 52–80; RESP 14–19; TEMP 96.1–98; O2SAT 93–97
[2016-09-15 04:55] LABS: AUTOMATED NEUTROPHIL # 2.3 TH/MM3 (1.8-7.7); BASOPHIL % 0.9 % (0.0-2.0); EOSINOPHIL # 0.2 TH/MM3 (0-0.4); HEMATOCRIT 27.9 % (35.0-46.0); HEMO FLAGS DIFF FINAL; LYMPH % 38.7 % (9.0-44.0); LYMPHOCYTE # 1.8 TH/MM3 (1.0-4.8); MEAN CORPUSCULAR HEMOGLOBIN 28.9 PG (27.0-34.0); MEAN CORPUSCULAR HGB CONC 32.8 % (32.0-36.0); MONO % 6.4 % (0.0-8.0); PLATELET COUNT 183 TH/MM3 (150-450); RED BLOOD COUNT 3.17 MIL/MM3 (4.00-5.30); RED CELL DISTRIBUTION WIDTH 14.2 % (11.6-17.2); WHITE BLOOD COUNT 4.6 TH/MM3 (4.0-11.0)
[2016-09-15 05:15] LABS: BICARBONATE 19.2 MEQ/L (21.0-32.0); POTASSIUM 4.6 MEQ/L (3.5-5.1)
[2016-09-15] MEDS: SODIUM CHLORIDE 0.9% FLUSH 5 ML FLUSH FLUSH SCH ×2 (07:42→20:19)
[2016-09-15] MEDS: hydrALAZINE HCL 25 MG TAB PO SCH ×2 (07:42→20:15)
[2016-09-15] MEDS: SODIUM CHLOR 0.9% 1000 ML INJ 1,000 ML IV SCH ×2 (07:42→20:16)
[2016-09-15] MEDS: CARVEDILOL 12.5 MG TAB PO SCH ×2 (07:42→20:15)
[2016-09-15] MEDS: NIFEdipine 60 MG SUSTAINED RELEASE TAB PO SCH (07:42)
--- NOTE | 2016-09-15 12:53 | PD.CARD.PN ---
Subjective Subjective Remarks sitting up independently in nad Objective Vital Signs / I&O Vital Signs Date Time Temp Pulse Resp B/P Pulse Ox O2 Delivery O2 Flow Rate FiO2 09/15/16 12:00 96.9 73 18 130/77 93 09/15/16 09:30 96 Nasal Cannula 2.00 09/15/16 08:00 96.2 54 14 113/61 96 09/15/16 04:00 98.0 52 18 109/74 96 09/15/16 00:00 98.0 66 18 130/80 96 09/14/16 20:00 59 09/14/16 20:00 96.6 55 18 168/100 96 09/14/16 15:40 96.8 58 18 197/100 99 09/14/16 14:32 95.5 58 18 197/100 99 I/O 09/14/16 09/14/16 09/14/16 09/15/16 09/15/16 09/15/16 07:00 15:00 23:00 07:00 15:00 23:00 Intake Total 180 ml 1255 ml 1182 ml Output Total 950 ml 500 ml Balance 180 ml 305 ml 682 ml Intake Oral 180 ml 450 ml 460 ml IV Total 805 ml 722 ml Output Urine Total 950 ml 500 ml Bladder Scan Volume Amount 867 ml # Bowel Movements 0 0 0 Physical Exam GENERAL: SKIN: Warm and dry. HEAD: Normocephalic. EYES: No scleral icterus. No injection or drainage. NECK: Supple, trachea midline. No JVD or lymphadenopathy. CARDIOVASCULAR: Regular rate and rhythm without murmurs, gallops, or rubs. RESPIRATORY: Breath sounds equal bilaterally. No accessory muscle use. GASTROINTESTINAL: Abdomen soft, non-tender, nondistended. MUSCULOSKELETAL: No cyanosis, or edema. BACK: Nontender without obvious deformity. No CVA tenderness. Laboratory Laboratory Tests Test 09/14/16 09/15/16 16:53 04:19 Total Creatine Kinase 107 U/L Troponin I 0.19 NG/ML White Blood Count 4.6 TH/MM3 Red Blood Count 3.17 MIL/MM3 Hemoglobin 9.2 GM/DL Hematocrit 27.9 % Mean Corpuscular Volume 88.0 FL Mean Corpuscular Hemoglobin 28.9 PG Mean Corpuscular Hemoglobin 32.8 % Concent Red Cell Distribution Width 14.2 % Platelet Count 183 TH/MM3 Mean Platelet Volume 9.6 FL Neutrophils (%) (Auto) 50.0 % Lymphocytes (%) (Auto) 38.7 % Monocytes (%) (Auto) 6.4 % Eosinophils (%) (Auto) 4.0 % Basophils (%) (Auto) 0.9 % Neutrophils # (Auto) 2.3 TH/MM3 Lymphocytes # (Auto) 1.8 TH/MM3 Monocytes # (Auto) 0.3 TH/MM3 Eosinophils # (Auto) 0.2 TH/MM3 Basophils # (Auto) 0.0 TH/MM3 CBC Comment DIFF FINAL Differential Comment Sodium Level 142 MEQ/L Potassium Level 4.6 MEQ/L Chloride Level 114 MEQ/L Carbon Dioxide Level 19.2 MEQ/L Anion Gap 9 MEQ/L Blood Urea Nitrogen 50 MG/DL Creatinine 2.92 MG/DL Estimat Glomerular Filtration 19 ML/MIN Rate Random Glucose 104 MG/DL Calcium Level 9.0 MG/DL Assessment and Plan Problem List: (1) Accelerated hypertension (2) Dehydration (3) ARF (acute renal failure) (4) [id number] kidney injury Assessment and Plan 1.) HTN - improved on nifedipine, coreg and hydralazine Tonio Puente MD Sep 15, 2016 12:53
--- NOTE | 2016-09-15 14:24 | HHI.PR ---
Subjective Remarks Follow-up for fall, weakness, fatigue, encephalopathy, elevated troponins, dehydration, TRUDI. Patient is seen with her grandson at bedside. Patient is still very drowsy, only answers questions with onetwo words, very slow to respond. She complains of pain at her legs. She prefers to lie on her right side only. Grandson states she did eat a small amount of her lunch. Grandson reports usually the patient is much more communicative, and now she is very drowsy and not acting like herself. Objective Vitals Vital Signs Date Time Temp Pulse Resp B/P Pulse Ox O2 Delivery O2 Flow Rate FiO2 09/15/16 12:00 96.9 73 18 130/77 93 09/15/16 09:30 96 Nasal Cannula 2.00 09/15/16 08:00 96.2 54 14 113/61 96 09/15/16 04:00 98.0 52 18 109/74 96 09/15/16 00:00 98.0 66 18 130/80 96 09/14/16 20:00 59 09/14/16 20:00 96.6 55 18 168/100 96 09/14/16 15:40 96.8 58 18 197/100 99 09/14/16 14:32 95.5 58 18 197/100 99 I/O 09/14/16 09/14/16 09/14/16 09/15/16 09/15/16 09/15/16 07:00 15:00 23:00 07:00 15:00 23:00 Intake Total 180 ml 1255 ml 1182 ml Output Total 950 ml 500 ml Balance 180 ml 305 ml 682 ml Intake Oral 180 ml 450 ml 460 ml IV Total 805 ml 722 ml Output Urine Total 950 ml 500 ml Bladder Scan Volume Amount 867 ml # Bowel Movements 0 0 0 Result Diagram: 09/15/16 0419 09/15/16 0419 Imaging Last Impressions Hip and Pelvis X-Ray 09/14/16633 Signed Impressions: Service Date/Time: Wednesday, September 14, 2016 07:09 - CONCLUSION: Osteopenia. No acute abnormality. Fito Diaz Jr., MD Femur X-Ray 09/14/1634 Signed Impressions: Service Date/Time: Wednesday, September 14, 2016 07:12 - CONCLUSION: No acute abnormality. Fito Diaz Jr., MD Chest X-Ray 09/14/16 0634 Signed Impressions: Service Date/Time: Wednesday, September 14, 2016 07:19 - CONCLUSION: Mild cardiomegaly. No acute cardio pulmonary disease. Fito Diaz Jr., MD Renal Ultrasound 09/14/16 0000 Signed Impressions: Service Date/Time: Wednesday, September 14, 2016 10:20 - CONCLUSION: 1. Increased echogenicity of the renal parenchyma. This is usually associated with chronic medical renal disease. 2. Mild hydronephrosis of the left collecting system. 3. Benign appearing left renal cysts. 4. Possible nonobstructing right kidney stone. Recommend noncontrast CT abdomen as clinically indicated. Elías Mares MD Abdomen/Pelvis CT 09/14/16 0000 Signed Impressions: Service Date/Time: Wednesday, September 14, 2016 19:43 - CONCLUSION: 1. No stones , hydronephrosis or other acute abnormalities seen of the kidneys. 2. Suspected mass of the pancreatic head. Further attempted characterization with a nonemergent contrast enhanced study is recommended, preferably abdomen MRI. 3. Severe chronic vascular disease. 4. Mild airspace opacities of both visualized lung bases. 5. Panchamber enlargement of the heart and coronary artery calcification. Sanket Marinelli MD Objective Remarks GENERAL: Well-nourished, well-developed elderly female patient in NAD. Drowsy. SKIN: Warm and dry. No rash. HEENT: Normocephalic. Atraumatic. Pupils equal and round. No scleral icterus. No injection or drainage. Mucous membranes pink and moist. NECK: Supple. Trachea midline. CARDIOVASCULAR: Regular rate and rhythm. S1, S2 noted. No murmur appreciated. RESPIRATORY: No accessory muscle use. Poor inspiratory effort, otherwise clear to auscultation. Breath sounds equal bilaterally. GASTROINTESTINAL: Abdomen soft, non-tender, nondistended. Normoactive bowel sounds x4. MUSCULOSKELETAL: No obvious deformities. Trace bilateral lower extremity edema. NEUROLOGICAL: Awake and alert, but drowsy. No obvious cranial nerve deficits. Does not participate in strength testing today, but does move all extremities spontaneously. Normal speech. No facial droop. PSYCHIATRIC: Appropriate mood and affect; insight and judgment limited. Medications and IVs Current Medications Medications (Trade) Dose Ordered Sig/Lenora Route Start Time Stop Time Status Last Admin (NS 1000 ml Inj) 1,000 ml @ 84 mls/hr [id number] IV 09/14/16 09:15 09/15/16 07:42 (NS Flush) 2 ml UNSCH PRN FLUSH 09/14/16 09:30 (NS Flush) 2 ml BID FLUSH 09/14/16 21:00 09/15/16 07:42 (Heparin Inj) 5,000 units Q12H SQ 09/14/16 10:00 Hold 09/14/16 09:57 (Narcan Inj) 0.4 mg UNSCH PRN IV 09/14/16 09:30 (Coreg) 12.5 mg Q12HR PO 09/14/16 10:00 09/14/16 20:04 (Apresoline) 25 mg Q12HR PO 09/14/16 21:00 09/14/16 20:04 Nifedipine 60 mg 60 mg DAILY PO 09/15/16 09:00 (Rocephin Inj/NS Inj) 100 ml @ 200 mls/hr Q24H IV 09/14/16 16:00 09/15/16 16:03 Urinary Catheter: Yes Assessment to: Continue French insert reason: Obstruction/Retention Date of Insertion: Sep 14, 2016 A/P Assessment and Plan 70-year-old female with history of hypertension, edema, CKD, weakness presents after falling out the bed last night 09/13. Generalized weakness/fatigue with encephalopathy: likely multifactorial secondary to UTI, hypertensive encephalopathy, dehydration, and recent fall. See treatment below. Check Head CT. Consult PT/OT/ST. Hypertensive Encephalopathy secondary to Accelerated HTN: BP 200/106 upon arrival. Secondary to noncompliance with medications. S/p clonidine, hydralazine , coreg in the ED. BP still elevated. Started on hydralazine, Coreg, Nifedipine. Cannot have SHELL/ARB secondary to TRUDI/CKD. Monitor BP, adjust antihypertensives as needed. BP much improved today however patient still drowsy /encephalopathic. UTI: UA with large leuks, many WBCs. Continue with IV Rocephin. Monitor urine culture, no growth in 24hrs however will continue to treat with AMS. Possible CHF Exacerbation: BNP elevated at 990. CXR with mild cardiomegaly, no acute findings, images reviewed by me. Trace BLE edema. Echo 09/06/15 showed normal systolic function EF 55-60%, mild MR, mild TR, mild to mod increased pulmonary arterial pressure. Hold diuresis for now, giving gentle hydration with IVF. Consult patient's continuous improvement manager, appreciate input. Elevated Troponins: no complaints of chest pain.Trended enzymes are flat at 0.22 , 0.19, 0.19. EKG with no acute ST elevation/depression. Consulted cardiology. Monitor on telemetry. TRUDI on CKD, stage III: hypertensive renal disease. TRUDI secondary to dehydration with decreased recent oral intake. Give gentle hydration with IVF at 84ml/hr. Avoid nephrotoxins. Monitor BMP, no improvement today. Pulmonary Hypertension: seen on previous echo as above. Consult pulmonology and cardiology, appreciate input. Check PFTs. Fall, Hip Pain: pt fell out of bed prior to arrival. CPK wnl. Hip/pelvis and femur xray negative for fracture. Consult PT. DVT Prophylaxis: heparin sq Written by Tri Banegas, acting as scribe for Dr. Butler on 09/15/16 at 14:24. Discharge Planning Discharge pending further clinical improvement. Likely needs rehab. Attending Statement The documentation accurately reflects the work performed [id number] by me, Dr. Butler on 09/15/16 at 14:24. Tri Banegas PA-C Sep 15, 2016 14:24 Juanpablo Butler MD Sep 17, 2016 03:20
--- NOTE | 2016-09-15 15:57 | EC ---
Study Study Date:09/15/2016 STUDY CONCLUSIONS SUMMARY - Procedure narrative: Transthoracic echocardiography. Image quality was good. Scanning was performed from the parasternal, apical, and subcostal acoustic windows. - Left ventricle: The cavity size was below normal. Wall thickness was increased in a pattern of moderate LVH. There is near obliteration of the apical portion of the left ventricular cavity in systole. Systolic function was vigorous. The estimated ejection fraction was in the range of 65% to 70%. Wall motion was normal; there were no regional wall motion abnormalities. - Aortic valve: Trileaflet; mild sclerosis of the noncoronary cusp. - Mitral valve: Trace to mild regurgitation. - Tricuspid valve: Trace to mild regurgitation. - Pulmonary arteries: PA peak pressure: 49mm Hg (S). If LV function is below 40, please consider prescribing an ACEI or ARB or document rationale for non-use. PROCEDURE DATA STUDY STATUS: Elective. Procedure: Transthoracic echocardiography. Image quality was good. Scanning was performed from the parasternal, apical, and subcostal acoustic windows. Study completion: The patient tolerated the procedure well. Transthoracic echocardiography. M-mode, complete 2D, complete spectral Doppler, and color Doppler. Height: Height: 64in. Weight: Weight: 124.7lb. Body mass index: BMI: 21.5kg/m^2. Body surface area: BSA: 1.6m^2. Patient status: Inpatient. CARDIAC ANATOMY LEFT VENTRICLE: The cavity size was below normal. Wall thickness was increased in a pattern of moderate LVH. There is near obliteration of the apical portion of the left ventricular cavity in systole. Systolic function was vigorous. The estimated ejection fraction was in the range of 65% to 70%. Wall motion was normal; there were no regional wall motion abnormalities. AORTIC VALVE: Trileaflet; mild sclerosis of the noncoronary cusp. Doppler: Transvalvular velocity was within the normal range. There was no stenosis. No regurgitation. Valve area: 2.1cm^2(VTI). Indexed valve area: 1.31cm^2/m^2 (VTI). Valve area: 1.91cm^2 (Vmax). Indexed valve area: 1.19cm^2/m^2 (Vmax). Mean gradient: 3mm Hg (S). AORTA: Aortic root: The aortic root was normal in size. MITRAL VALVE: Structurally normal valve. Doppler: Transvalvular velocity was within the normal range. There was no evidence for stenosis. Trace to mild regurgitation. Peak gradient: 4mm Hg (D). LEFT ATRIUM: The atrium was normal in size. RIGHT VENTRICLE: The cavity size was normal. Wall thickness was normal. PULMONIC VALVE: Doppler: Transvalvular velocity was within the normal range. There was no evidence for stenosis. No regurgitation. TRICUSPID VALVE: Structurally normal valve. Doppler: Transvalvular velocity was within the normal range. Trace to mild regurgitation. PULMONARY ARTERY: The main pulmonary artery was normal-sized. Systolic pressure was within the normal range. RIGHT ATRIUM: The atrium was normal in size. PERICARDIUM: There was no pericardial effusion. SYSTEMIC VEINS: Inferior vena cava: The vessel was normal in size. Patient weight: 124.7lb _Ejection fraction:_ 65-75% _Fractional shortening:_ 32% up to 5Kg 5-11.5Kg 11.6-22.9Kg 23-45Kg 45-57Kg Aortic Root 7-13 <17 13-22 17-27 17-27 LA diam 6-13 <23 24-38 33-47 37-40 RVID 10-17 7-15 7-15 7-18 8-17 LVIDd 12-22 <32 24-38 33-47 37-40 LVPW 2-4 3-6 5-7 6-8 7-8 IVS 2-4 3-6 5-7 6-8 7-8 BASIC MEASUREMENTS ADULT NORMAL Left ventricle LV internal dimension, ED, chordal 45.9 mm 43-52 level, PLAX LV internal dimension, ES, chordal 28.9 mm 23-38 level, PLAX Fractional shortening, chordal level, 37 % >29 PLAX LV posterior wall thickness, ED 11.9 mm IVS/LVPW ratio, ED 0.97 <1.3 Ventricular septum Septal thickness, ED 11.6 mm Aortic valve Leaflet separation 18 mm 15-26 Aorta Root diameter, ED 28 mm Left atrium Anterior-posterior dimension 29 mm Anterior-posterior dimension index 1.81 cm/m^2 <2.2 BASIC MEASUREMENTS ADULT NORMAL Aortic valve Leaflet separation 18 mm 15-26 DOPPLER MEASUREMENTS ADULT NORMAL Main pulmonary artery Pressure, S *49 mm Hg =30 Aortic valve Peak velocity, S 110 cm/s Mean velocity, S 79.4 cm/s VTI, S 21.1 cm Mean gradient, S 3 mm Hg Valve area, VTI 2.1 cm^2 Valve area index, VTI 1.31 cm^2/m^2 Valve area, Vmax 1.91 cm^2 Valve area index, Vmax 1.19 cm^2/m^2 Mitral valve Peak E-wave velocity 106 cm/s Peak A-wave velocity 24.2 cm/s Peak gradient, D 4 mm Hg Peak E/A ratio 4.4 Tricuspid valve Regurgitant peak velocity 303 cm/s Peak RV-RA gradient, S 37 mm Hg Maximal regurgitant velocity 303 cm/s Systemic veins Estimated CVP 10 mm Hg Right ventricle RV pressure, S *51 mm Hg <30 Pulmonic valve Peak velocity, S 63.9 cm/s LEGEND: Mean values are shown as u=mean value. Asterisk (*) arrington values outside specified normal range. Prepared and signed by Tone Lopez [id number]
[2016-09-15] MEDS: cefTRIAXone INJ 1,000 MG in SODIUM CHLORIDE 0.9% INJ 100 ML IV SCH (16:03)
--- NOTE | 2016-09-15 17:05 | RADRPT ---
EXAM DATE/TIME: 09/15/2016 16:49 [place] COMPARISON: No previous studies available for comparison. INDICATIONS : Altered mental status. RADIATION DOSE: 50.49 CTDIvol (mGy) MEDICAL HISTORY : Stroke. Hypertension. SURGICAL HISTORY : None. ENCOUNTER: Initial ACUITY: 1 day PAIN SCALE: Non-responsive LOCATION: cranial TECHNIQUE: Multiple contiguous axial images were obtained of the head. Using automated exposure control and adj ustment of the mA and/or kV according to patient size, radiation dose was kept as low as reasonably a chievable to obtain optimal diagnostic quality images. FINDINGS: CEREBRUM: Common areas of low-attenuation throughout the white matter. Old basal ganglia lacunar infarcts great er the left. There also appears to be a small right frontal infarct. The ventricles are normal for ag e. No evidence of midline shift, mass lesion, hemorrhage or acute infarction. No extra-axial fluid collections are seen. POSTERIOR FOSSA: The cerebellum and brainstem are intact. The 4th ventricle is midline. The cerebellopontine angle i s unremarkable. EXTRACRANIAL: The visualized portion of the orbits is intact. SKULL: The calvaria is intact. No evidence of skull fracture. CONCLUSION: 1. Chronic ischemic small vessel vasculopathy. 2. 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 Donato Stewart MD on September 15, 2016 at 17:02 Board Certified Radiologist. This report was verified electronically.
[2016-09-16] VITALS (8 sets, daily range): BP systolic 128–174; BP diastolic 76–98; PULSE 63–80; RESP 14–19; TEMP 98–99.8; O2SAT 92–100
[2016-09-16] MEDS: hydrALAZINE HCL 25 MG TAB PO SCH ×2 (07:49→20:03)
[2016-09-16] MEDS: NIFEdipine 60 MG SUSTAINED RELEASE TAB PO SCH (07:49)
[2016-09-16] MEDS: SODIUM CHLOR 0.9% 1000 ML INJ 1,000 ML IV SCH (07:50)
[2016-09-16] MEDS: CARVEDILOL 12.5 MG TAB PO SCH ×2 (07:50→20:03)
[2016-09-16] MEDS: SODIUM CHLORIDE 0.9% FLUSH 5 ML FLUSH FLUSH SCH ×2 (07:50→20:03)
[2016-09-16] MEDS: ACETAMINOPHEN 325 MG TAB PO PRN (11:56)
[2016-09-16 12:32] LABS: AUTOMATED NEUTROPHIL # 3.3 TH/MM3 (1.8-7.7); BASOPHIL # 0.1 TH/MM3 (0-0.2); BASOPHIL % 1.1 % (0.0-2.0); EOSINOPHIL # 0.2 TH/MM3 (0-0.4); EOSINOPHIL % 4.2 % (0.0-4.0); HEMO FLAGS DIFF FINAL; LYMPH % 29.7 % (9.0-44.0); LYMPHOCYTE # 1.8 TH/MM3 (1.0-4.8); MEAN CELL VOLUME 88.1 FL (80.0-100.0); MEAN CORPUSCULAR HEMOGLOBIN 29.6 PG (27.0-34.0); MEAN CORPUSCULAR HGB CONC 33.6 % (32.0-36.0); MONO % 9.5 % (0.0-8.0); NEUT % 55.5 % (16.0-70.0); PLATELET COUNT 188 TH/MM3 (150-450); RED BLOOD COUNT 3.29 MIL/MM3 (4.00-5.30); RED CELL DISTRIBUTION WIDTH 14.1 % (11.6-17.2)
[2016-09-16 12:54] LABS: ACETAMINOPHEN LESS THAN 2.0 MCG/ML (10.0-30.0); ANION GAP 11 MEQ/L (5-15); BICARBONATE 16.2 MEQ/L (21.0-32.0); BLOOD UREA NITROGEN 47 MG/DL (7-18); CHLORIDE 114 MEQ/L (98-107); GLOMERULAR FILTRATION RATE 18 ML/MIN (>89); POTASSIUM 4.7 MEQ/L (3.5-5.1); SODIUM (NA) 141 MEQ/L (136-145)
--- NOTE | 2016-09-16 13:33 | HHI.PR ---
Subjective Remarks Follow-up for fall, weakness, fatigue, encephalopathy, elevated troponins, dehydration, TRUDI. The patient states "I feel ok" today. She is much more awake and alert. Complains of some right lower back pain and hip pain. Multiple family members at bedside state the patient looks much better, but not quite back to baseline. Objective Vitals Vital Signs Date Time Temp Pulse Resp B/P Pulse Ox O2 Delivery O2 Flow Rate FiO2 09/16/16 12:56 17 09/16/16 08:00 98.2 68 18 100 09/16/16 03:30 98.9 75 19 174/97 94 09/16/16 00:00 99.8 80 148/86 96 09/15/16 21:30 171/92 09/15/16 20:00 97.1 78 19 194/95 95 09/15/16 19:06 80 09/15/16 16:00 96.1 73 18 176/89 97 170/87 I/O 09/15/16 09/15/16 09/15/16 09/16/16 09/16/16 09/16/16 07:00 15:00 23:00 07:00 15:00 23:00 Intake Total 1182 ml 849 ml 542 ml 825 ml Output Total 500 ml 450 ml 300 ml 650 ml Balance 682 ml 399 ml 242 ml 175 ml Intake Oral 460 ml 120 ml 240 ml 120 ml IV Total 722 ml 729 ml 302 ml 705 ml Output Urine Total 500 ml 450 ml 300 ml 650 ml # Bowel Movements 0 0 0 0 Result Diagram: 09/16/16 1205 09/16/16 1205 Imaging Last Impressions Head CT 09/15/16 0000 Signed Impressions: Service Date/Time: Thursday, September 15, 2016 16:49 - CONCLUSION: 1. Chronic ischemic small vessel vasculopathy. 2. 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 Donato Setwart MD Hip and Pelvis X-Ray 09/14/16633 Signed Impressions: Service Date/Time: Wednesday, September 14, 2016 07:09 - CONCLUSION: Osteopenia. No acute abnormality. Fito Diaz Jr., MD Femur X-Ray 09/14/16633 Signed Impressions: Service Date/Time: Wednesday, September 14, 2016 07:12 - CONCLUSION: No acute abnormality. Fito Diaz Jr., MD Chest X-Ray 09/14/16633 Signed Impressions: Service Date/Time: Wednesday, September 14, 2016 07:19 - CONCLUSION: Mild cardiomegaly. No acute cardio pulmonary disease. Fito Diaz Jr., MD Renal Ultrasound 09/14/16 0000 Signed Impressions: Service Date/Time: Wednesday, September 14, 2016 10:20 - CONCLUSION: 1. Increased echogenicity of the renal parenchyma. This is usually associated with chronic medical renal disease. 2. Mild hydronephrosis of the left collecting system. 3. Benign appearing left renal cysts. 4. Possible nonobstructing right kidney stone. Recommend noncontrast CT abdomen as clinically indicated. Elías Mares MD Abdomen/Pelvis CT 09/14/16 Signed Impressions: Service Date/Time: Wednesday, September 14, 2016 19:43 - CONCLUSION: 1. No stones , hydronephrosis or other acute abnormalities seen of the kidneys. 2. Suspected mass of the pancreatic head. Further attempted characterization with a nonemergent contrast enhanced study is recommended, preferably abdomen MRI. 3. Severe chronic vascular disease. 4. Mild airspace opacities of both visualized lung bases. 5. Panchamber enlargement of the heart and coronary artery calcification. Sanket Marinelli MD Objective Remarks GENERAL: Well-nourished, well-developed elderly female patient in [facility]. More awake and alert today. SKIN: Warm and dry. No rash. HEENT: Normocephalic. Atraumatic. Pupils equal and round. No scleral icterus. No injection or drainage. Mucous membranes pink and moist. NECK: Supple. Trachea midline. CARDIOVASCULAR: Regular rate and rhythm. S1, S2 noted. No murmur appreciated. RESPIRATORY: No accessory muscle use. Clear to auscultation. Breath sounds equal bilaterally. GASTROINTESTINAL: Abdomen soft, non-tender, nondistended. Normoactive bowel sounds x4. +abdominal bruit. MUSCULOSKELETAL: No obvious deformities. Trace bilateral lower extremity edema. NEUROLOGICAL: Awake and alert, but drowsy. No obvious cranial nerve deficits. Moving all extremities spontaneously. Normal speech. No facial droop. PSYCHIATRIC: Appropriate mood and affect; insight and judgment limited. Medications and IVs Current Medications Medications (Trade) Dose Ordered Sig/Lenora Route Start Time Stop Time Status Last Admin (NS 1000 ml Inj) 1,000 ml @ 84 mls/hr [id number] IV 2/24/17 09:15 09/16/16 07:50 (NS Flush) 2 ml UNSCH PRN FLUSH 09/14/16 09:30 (NS Flush) 2 ml BID FLUSH 09/14/16 21:00 09/15/16 20:19 (Heparin Inj) 5,000 units Q12H SQ 09/14/16 10:00 Hold 09/14/16 09:57 (Narcan Inj) 0.4 mg UNSCH PRN IV 09/14/16 09:30 (Coreg) 12.5 mg Q12HR PO 09/14/16 10:00 09/16/16 07:50 (Apresoline) 25 mg Q12HR PO 09/14/16 21:00 09/16/16 07:49 Nifedipine 60 mg 60 mg DAILY PO 09/15/16 09:00 09/16/16 07:49 (Rocephin Inj/NS Inj) 100 ml @ 200 mls/hr Q24H IV 09/14/16 16:00 09/15/16 16:03 (Tylenol) 650 mg Q4H PRN PO 09/16/16 12:00 09/16/16 11:56 Urinary Catheter: Yes Assessment to: Remove Date of Insertion: Sep 14, 2016 Date of Removal: Sep 16, 2016 A/P Assessment and Plan 70-year-old female with history of hypertension, edema, CKD, weakness presents after falling out the bed last night 09/13. Generalized weakness/fatigue with encephalopathy: likely multifactorial secondary to UTI, hypertensive encephalopathy, dehydration, and recent fall. See treatment below. Head CT with old ischemic changes, no acute findings. Consult PT/OT/ST. Hypertensive Encephalopathy secondary to Accelerated HTN: BP 200/106 upon arrival. Secondary to noncompliance with medications. S/p clonidine, hydralazine , coreg in the ED. BP still elevated. Started on hydralazine, Coreg, Nifedipine. Cannot have SHELL/ARB secondary to TRUDI/CKD. Monitor BP, adjust antihypertensives as needed. Still elevated today, with abdominal bruit on exam , consult nephrology for eval of poss HEBER, hold off on increasing BP meds for now. UTI: UA with large leuks, many WBCs. S/p IV Rocephin x3days. Urine culture with no growth. Possible CHF Exacerbation: BNP elevated at 990. CXR with mild cardiomegaly, no acute findings, images reviewed by me. Trace BLE edema. Echo 09/06/15 showed normal systolic function EF 55-60%, mild MR, mild TR, mild to mod increased pulmonary arterial pressure. Hold diuresis for now, giving gentle hydration with IVF. Consult patient's certified emergency vehicle technician, appreciate input. Elevated Troponins: no complaints of chest pain.Trended enzymes are flat at 0.22 , 0.19, 0.19. EKG with no acute ST elevation/depression. Consulted cardiology. Monitor on telemetry. TRUDI on CKD, stage III: hypertensive renal disease. TRUDI secondary to dehydration with decreased recent oral intake. Give gentle hydration with IVF at 84ml/hr. Avoid nephrotoxins. Monitor BMP, still no improvement, will consult nephrology. Pulmonary Hypertension: seen on previous echo as above. Consult pulmonology and cardiology, appreciate input. Check PFTs. Fall, Hip Pain: pt fell out of bed prior to arrival. CPK wnl. Hip/pelvis and femur xray negative for fracture. Consult PT, patient needs rehab. DVT Prophylaxis: heparin sq Written by Tri Banegas, acting as scribe for Dr. Butler on 09/16/16 at 13: 28. The documentation accurately reflects the work performed [id number] by me, Dr. Butler on 09/16/16 at 13:28. Discharge Planning Possible discharge in 2-3days. Discussed with family to consider rehab, will talk about it with the rest of the family and report back. Tri Banegas PA-C Sep 16, 2016 13:33 Juanpablo Butler MD Sep 17, 2016 02:20
--- NOTE | 2016-09-16 13:46 | PD.CARD.PN ---
Subjective Subjective Remarks sitting up in nad Objective Vital Signs / I&O Vital Signs Date Time Temp Pulse Resp B/P Pulse Ox O2 Delivery O2 Flow Rate FiO2 09/16/16 12:56 17 09/16/16 12:00 98.9 63 16 133/78 95 09/16/16 09:00 168/98 09/16/16 08:00 98.2 68 18 100 09/16/16 03:30 98.9 75 19 174/97 94 09/16/16 00:00 99.8 80 148/86 96 09/15/16 21:30 171/92 09/15/16 20:00 97.1 78 19 194/95 95 09/15/16 19:06 80 09/15/16 16:00 96.1 73 18 176/89 97 170/87 I/O 09/15/16 09/15/16 09/15/16 09/16/16 09/16/16 09/16/16 07:00 15:00 23:00 07:00 15:00 23:00 Intake Total 1182 ml 849 ml 542 ml 825 ml Output Total 500 ml 450 ml 300 ml 650 ml Balance 682 ml 399 ml 242 ml 175 ml Intake Oral 460 ml 120 ml 240 ml 120 ml IV Total 722 ml 729 ml 302 ml 705 ml Output Urine Total 500 ml 450 ml 300 ml 650 ml # Bowel Movements 0 0 0 0 Physical Exam GENERAL: SKIN: Warm and dry. HEAD: Normocephalic. EYES: No scleral icterus. No injection or drainage. NECK: Supple, trachea midline. No JVD or lymphadenopathy. CARDIOVASCULAR: Regular rate and rhythm without murmurs, gallops, or rubs. RESPIRATORY: Breath sounds equal bilaterally. No accessory muscle use. GASTROINTESTINAL: Abdomen soft, non-tender, nondistended. MUSCULOSKELETAL: No cyanosis, or edema. BACK: Nontender without obvious deformity. No CVA tenderness. Laboratory Laboratory Tests Test 09/16/16 12:05 White Blood Count 6.0 TH/MM3 Red Blood Count 3.29 MIL/MM3 Hemoglobin 9.8 GM/DL Hematocrit 29.0 % Mean Corpuscular Volume 88.1 FL Mean Corpuscular Hemoglobin 29.6 PG Mean Corpuscular Hemoglobin 33.6 % Concent Red Cell Distribution Width 14.1 % Platelet Count 188 TH/MM3 Mean Platelet Volume 9.8 FL Neutrophils (%) (Auto) 55.5 % Lymphocytes (%) (Auto) 29.7 % Monocytes (%) (Auto) 9.5 % Eosinophils (%) (Auto) 4.2 % Basophils (%) (Auto) 1.1 % Neutrophils # (Auto) 3.3 TH/MM3 Lymphocytes # (Auto) 1.8 TH/MM3 Monocytes # (Auto) 0.6 TH/MM3 Eosinophils # (Auto) 0.2 TH/MM3 Basophils # (Auto) 0.1 TH/MM3 CBC Comment DIFF FINAL Differential Comment Sodium Level 141 MEQ/L Potassium Level 4.7 MEQ/L Chloride Level 114 MEQ/L Carbon Dioxide Level 16.2 MEQ/L Anion Gap 11 MEQ/L Blood Urea Nitrogen 47 MG/DL Creatinine 3.03 MG/DL Estimat Glomerular Filtration 18 ML/MIN Rate Random Glucose 120 MG/DL Calcium Level 8.6 MG/DL Acetaminophen Level LESS THAN 2.0 MCG/ML Assessment and Plan Problem List: (1) Accelerated hypertension (2) Dehydration (3) ARF (acute renal failure) (4) Uavws-vy-felfsvq kidney injury Assessment and Plan 1.) HTN - improved on nifedipine, coreg and hydralazine, still with spikes suspect due to arf Tonio Puente MD Sep 16, 2016 13:46
[2016-09-16] MEDS: cefTRIAXone INJ 1,000 MG in SODIUM CHLORIDE 0.9% INJ 100 ML IV SCH (16:00)
[2016-09-16] MEDS: SODIUM BICARBONATE 650 MG TAB PO SCH (20:03)
--- NOTE | 2016-09-16 20:13 | MB ---
cc: TYREL CAPELLAN MD DATE OF CONSULTATION: 09/16/2016. REASON FOR CONSULTATION: Elevated BUN and creatinine. HISTORY OF PRESENT ILLNESS: The patient is a 71-year-old female with a past medical history of hypertension and history of chronic kidney disease who came to the hospital because of history of fall from the bed. The patient was admitted on September 14 and I was called to see the patient because of elevated BUN and creatinine. The patient previously has a known history of chronic kidney disease although she is not seeing any calibration specialist on a regular basis. Her creatinine a year ago in August of 2015 was 2.1, and now she was admitted with a creatinine of 2.8 and it has gone up to 3.0. The patient denies any nausea or vomiting but she admits that she is not eating very well because her appetite is not good and it is just improving now. On admission, the patient was seen by the gaming surveillance observer because she has a history of ischemic heart disease and elevated troponins and she was diagnosed with non-S-T elevation OH. She was also diagnosed with possible urinary tract infection. The gaming surveillance observer is following the patient and recommends to control the blood pressure. Her blood pressure now is a little better. She had a very high blood pressure when she came in here and the highest recording was 200/106. PAST MEDICAL HISTORY: 1. Hypertension. 2. Ischemic heart disease. 3. Chronic kidney disease. 4. History of depression. PAST SURGICAL HISTORY: 1. Cardiac catheterization. 2. Tubal ligation. 3. Some surgery for the leg for circulation. REVIEW OF SYSTEMS: There is no history of fever. Denies any headache, dizziness or blurring of vision. The patient has generalized weakness, feeling tired. She has decreased appetite, some weakness in both legs. There is no history of nausea or vomiting. No shortness of breath. No chest pain. No abdominal pain. No history of diarrhea. No dysuria or hematuria or difficulty in passing urine. SOCIAL HISTORY: The patient lives with her family. She history of smoking and . FAMILY HISTORY: Her family history noncontributory. ALLERGIES: SHE HAS NO KNOWN DRUG ALLERGIES. CURRENT MEDICATIONS: Currently the patient is on the following medications: 1. IV fluids with normal saline at 84 mL/hour. 2. Nifedipine 60 milligrams once a day. 3. Carvedilol 12.5 milligrams q. 12 hours. 4. Hydralazine 25 milligrams q. 12 hours. 5. Narcan as needed. 6. She was on ceftriaxone which has been stopped now. PHYSICAL EXAMINATION: GENERAL: On examination, the patient is awake and alert and she is not in acute distress. VITAL SIGNS: Her last blood pressure was 128/76, temperature is 98, oxygen saturation is 98% to 100%. HEAD, EYES, EARS, NOSE, THROAT: The pupils are equal and reacting to light. Nonicteric sclerae. Conjunctivae are pale. NECK: The neck is supple. JVD is not elevated. LUNGS: The patient has bilateral good air entry with occasional wheezing. HEART: S1 and S2 regular rhythm. ABDOMEN: Abdomen soft and lax. There is no tenderness. Bowel sounds positive. EXTREMITIES: There is no pedal edema. INVESTIGATIONS: White blood cell count is 6.0, hemoglobin 8.8, platelet count of 188,000, neutrophils 55.5%. Sodium 139, potassium 4.0, chloride 110, bicarbonate 19.6, BUN 46, creatinine 2.8 and this was done two days ago. Now the repeat Basic metabolic profile showing the sodium is 141, potassium 4.7, chloride 114, bicarbonate 16.2, BUN 47, creatinine 3.0, glucose 120, calcium 8.6. Troponin I is 0.19. BNP was 990. The patient previously had serum protein electrophoresis done but this was done in 2009 and showed monoclonal gammopathy. Urinalysis showing protein of 100. INR is 1.0. She has increased IgG previously 2040 and IgM was low 35. [place] light chain was 1550. Hepatitis C was reactive in 2003. IMAGING STUDIES: The patient had a CT scan of the brain done which shows old infarction, chronic ischemic small vessel changes. Chest x-ray was done which shows mild cardiomegaly. Ultrasound of the kidneys was done and it shows both kidneys are small in size, especially the right one is 8.3 and the left is 9.7, increased echogenicity, mild hydronephrosis of the left collecting system. ASSESSMENT AND PLAN: 1. Chronic kidney disease. 2. Acute kidney injury. 3. Metabolic acidosis. 4. Hypertension. 5. Anemia. The patient has a known history of chronic kidney disease. She does not have significant proteinuria. The patient has a history of monoclonal gammopathy of unknown significance and so she probably has chronic kidney disease because of hypertension or renovascular disease. Will have sodium bicarbonate since her bicarb is low and since she has history of monoclonal gammopathy I will repeat the kappa light chain and lambda light chain. I will continue her with the IV fluids and will follow the urine output and the BUN and creatinine. Avoid any nephrotoxins. Thank you for the consultation. MD PIOTR Ziegler/JESSICA /6:22 PM /7:38 PM
[2016-09-17] VITALS (7 sets, daily range): BP systolic 148–177; BP diastolic 76–86; PULSE 70–89; RESP 18–20; TEMP 96.6–98.4; O2SAT 91–94
[2016-09-17] MEDS: SODIUM CHLOR 0.9% 1000 ML INJ 1,000 ML IV SCH ×3 (05:36→20:35)
[2016-09-17] MEDS: CARVEDILOL 12.5 MG TAB PO SCH ×2 (08:31→20:29)
[2016-09-17] MEDS: NIFEdipine 60 MG SUSTAINED RELEASE TAB PO SCH (08:31)
[2016-09-17] MEDS: hydrALAZINE HCL 25 MG TAB PO SCH ×2 (08:31→20:29)
[2016-09-17] MEDS: SODIUM BICARBONATE 650 MG TAB PO SCH ×2 (08:31→20:29)
[2016-09-17] MEDS: SODIUM CHLORIDE 0.9% FLUSH 5 ML FLUSH FLUSH SCH ×2 (08:32→20:29)
[2016-09-17] MEDS: ACETAMINOPHEN 325 MG TAB PO PRN ×2 (10:36→15:46)
--- NOTE | 2016-09-17 11:32 | HHI.NPPN ---
Subjective General Problems: Anemia, Hypertension Renal Failure: Chronic, Acute, Stage IV History of Present Illness 71-year-old female with a past medical history of hypertension and history of chronic kidney disease who came to the hospital because of history of fall from the bed. The patient was admitted on September 14 and I was called to see the patient because of elevated BUN and creatinine. The patient previously has a known history of chronic kidney disease although she is not seeing any edge trimmer on a regular basis. Her creatinine a year ago in August of 2015 was 2.1, and now she was admitted with a creatinine of 2.8. Additional Remarks Patient is now sitting on chair and getting PT, no SOB,eating better. Review of Systems General Constitutional: Fatigue Cardiovascular Cardiac: VERGARA Objective Data Data 09/16/16 09/17/16 19:00 07:00 Intake Total 1416 ml 1185 ml Output Total 700 ml 650 ml Balance 716 ml 535 ml Intake Oral 800 ml 120 ml IV Total 616 ml 1065 ml Output Urine Total 700 ml 650 ml Bladder Scan Volume Amount 170 ml # Voids 0 # Bowel Movements 0 0 Vital Signs Date Time Temp Pulse Resp B/P Pulse Ox O2 Delivery O2 Flow Rate FiO2 09/17/16 08:00 97.2 70 18 177/86 92 09/17/16 04:00 98.4 75 19 153/83 92 09/17/16 00:00 96.6 73 19 156/83 92 09/16/16 20:00 98.9 71 19 142/82 92 09/16/16 19:53 77 09/16/16 16:00 98.0 68 14 128/76 98 09/16/16 12:56 17 09/16/16 12:00 98.9 63 16 133/78 95 -: 09/16/16 1205 09/16/16 1205 Physical Exam General Appearance: No Acute Distress, Comfortable Eyes Eye Exam: Pupils Equal Throat Throat Exam: Oral Mucosa Kelly & Moist Neck Neck Exam: Neck Supple Pulmonary Resp Exam: No Distress, Rhonchi, Decreased Bases, Diminished Breath Sounds Cardiology CV Exam: Regular, Normal Sinus Rhythm Gastrointestinal/Abdomen GI Exam: Soft, Non-Tender, Bowel Sounds Present Extremeties Extremities Exam: No Edema Neurologic Neuro Exam: Alert, Awake Psychiatric Psych Exam: Appropriate Responses Assessment/Plan Assessment Summary: TRUDI/Acute Renal Failure, Anemia of CKD, Hypertension, CKD Stage IV Problem List: (1) Contusion, hip (2) UTI (urinary tract infection) (3) Dehydration (4) ARF (acute renal failure) (5) Accelerated hypertension (6) Dwilo-[id number] kidney injury Plan Patient has been non oliguric. 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 Miguel Barrera and Lambda are PND. Continue hydration, avoid Nephrotoxins. Follow urine out put and BMP. Danie Sanchez MD Sep 17, 2016 11:32
--- NOTE | 2016-09-17 12:07 | HHI.PR ---
Subjective Remarks Follow up for HTN and TRUDI. Daughter at bedside. Doing better today. Family states she was found on the floor this morning, discussed with RN, no falls were noted here. No complaints. Denies pain. Family reports mental status almost back to baseline. Objective Vitals Vital Signs Date Time Temp Pulse Resp B/P Pulse Ox O2 Delivery O2 Flow Rate FiO2 09/17/16 08:00 97.2 70 18 177/86 92 09/17/16 04:00 98.4 75 19 153/83 92 09/17/16 00:00 96.6 73 19 156/83 92 09/16/16 20:00 98.9 71 19 142/82 92 09/16/16 19:53 77 09/16/16 16:00 98.0 68 14 128/76 98 09/16/16 12:56 17 I/O 09/16/16 09/16/16 09/16/16 09/17/16 09/17/16 09/17/16 07:00 15:00 23:00 07:00 15:00 23:00 Intake Total 825 ml 1416 ml 380 ml 805 ml Output Total 650 ml 700 ml 650 ml Balance 175 ml 716 ml 380 ml 155 ml Intake Oral 120 ml 800 ml 60 ml 60 ml IV Total 705 ml 616 ml 320 ml 745 ml Output Urine Total 650 ml 700 ml 650 ml Bladder Scan Volume Amount 170 ml # Voids 0 # Bowel Movements 0 0 0 0 Result Diagram: 09/16/16 1205 09/16/16 1205 Imaging Last Impressions Head CT 09/15/16 0000 Signed Impressions: Service Date/Time: Thursday, September 15, 2016 16:49 - CONCLUSION: 1. Chronic ischemic small vessel vasculopathy. 2. 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 Donato Stewart MD Hip and Pelvis X-Ray 09/14/16633 Signed Impressions: Service Date/Time: Wednesday, September 14, 2016 07:09 - CONCLUSION: Osteopenia. No acute abnormality. Fito Diaz Jr., MD Femur X-Ray 09/14/16633 Signed Impressions: Service Date/Time: Wednesday, September 14, 2016 07:12 - CONCLUSION: No acute abnormality. Fito Diaz Jr., MD Chest X-Ray 09/14/16633 Signed Impressions: Service Date/Time: Wednesday, September 14, 2016 07:19 - CONCLUSION: Mild cardiomegaly. No acute cardio pulmonary disease. Fito Diaz Jr., MD Renal Ultrasound 09/14/16 0000 Signed Impressions: Service Date/Time: Wednesday, September 14, 2016 10:20 - CONCLUSION: 1. Increased echogenicity of the renal parenchyma. This is usually associated with chronic medical renal disease. 2. Mild hydronephrosis of the left collecting system. 3. Benign appearing left renal cysts. 4. Possible nonobstructing right kidney stone. Recommend noncontrast CT abdomen as clinically indicated. Elías Mares MD Abdomen/Pelvis CT 09/14/16 0000 Signed Impressions: Service Date/Time: Wednesday, September 14, 2016 19:43 - CONCLUSION: 1. No stones , hydronephrosis or other acute abnormalities seen of the kidneys. 2. Suspected mass of the pancreatic head. Further attempted characterization with a nonemergent contrast enhanced study is recommended, preferably abdomen MRI. 3. Severe chronic vascular disease. 4. Mild airspace opacities of both visualized lung bases. 5. Panchamber enlargement of the heart and coronary artery calcification. Sanket Marinelli MD Objective Remarks GENERAL: Well-developed well-nourished. In no acute distress. Sitting up in a chair eating lunch. SKIN: Warm and dry. No lesions noted. HEENT: Normocephalic. Pupils equal and round. Mucous membranes pink and moist. CARDIOVASCULAR: Regular rate and rhythm. No murmur appreciated. RESPIRATORY: No accessory muscle use. Clear to auscultation. Breath sounds equal bilaterally. GASTROINTESTINAL: Abdomen soft, non-tender, nondistended. Bowel sounds x4. MUSCULOSKELETAL: No obvious deformities. No clubbing or cyanosis. No edema. NEUROLOGICAL: Awake and alert. No focal neurological deficits. Moves upper and lower extremities spontaneously. Normal speech. PSYCHIATRIC: Appropriate mood and affect; insight and judgment limited. Date of Insertion: Sep 14, 2016 Date of Removal: Sep 16, 2016 A/P Assessment and Plan 70-year-old female with history of hypertension, edema, CKD, weakness presents after falling out the bed last night 09/13. Generalized weakness/fatigue with encephalopathy: likely multifactorial secondary to UTI, hypertensive encephalopathy, dehydration, and recent fall. See treatment below. Head CT with old ischemic changes, no acute findings. Consult PT/OT/ST. Hypertensive Encephalopathy secondary to Accelerated HTN: BP 200/106 upon arrival. Secondary to noncompliance with medications. S/p clonidine, hydralazine , coreg in the ED. BP still elevated. Started on hydralazine, Coreg, Nifedipine. Cannot have SHELL/ARB secondary to TRUDI/CKD. Monitor BP, adjust antihypertensives as needed. Still somewhat elevated, but with abdominal bruit on exam, consult nephrology for eval of poss HEBER, hold off on increasing BP meds for now. UTI: UA with large leuks, many WBCs. S/p IV Rocephin x3days. Urine culture with no growth. Possible CHF Exacerbation: BNP elevated at 990. CXR with mild cardiomegaly, no acute findings. Trace BLE edema. Echo 09/06/15 showed normal systolic function EF 55-60%, mild MR, mild TR, mild to mod increased pulmonary arterial pressure. Hold diuresis for now, giving gentle hydration with IVF. 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 Elevated Troponins: no complaints of chest pain.Trended enzymes are flat at 0.22 , 0.19, 0.19. EKG with no acute ST elevation/depression. Consulted cardiology. Monitor on telemetry. TRUDI on CKD, stage III: hypertensive renal disease. TRUDI secondary to dehydration with decreased recent oral intake. Give gentle hydration with IVF. Avoid nephrotoxins. No improvement, consulted nephrology, appreciate input. Follow up BMP. Resume ARB when appropriate. Pulmonary Hypertension: seen on previous echo as above. Consulted pulmonology and cardiology, appreciate input. Check PFTs. Fall, Hip Pain: pt fell out of bed prior to arrival. CPK wnl. Hip/pelvis and femur xray negative for fracture. Consulted PT, patient needs rehab. DVT Prophylaxis: heparin sq Written by Ankur Lizarraga, acting as scribe for Dr. Butler on 09/17/16 at 12:05. Discharge Planning D/W family, patient with 9 children, difficulties with healthcare proxy. Agreeable for palliative care consult. Attending Statement The documentation accurately reflects the work performed [id number] by me, Dr. Butler on 09/17/16 at 12:05. Ankur Lizarraga Sep 17, 2016 12:07 Juanpablo Butler MD Sep 23, 2016 07:22
[2016-09-17 13:51] LABS: BICARBONATE 17.2 MEQ/L (21.0-32.0); POTASSIUM 4.4 MEQ/L (3.5-5.1)
--- NOTE | 2016-09-17 14:21 | PD.CARD.PN ---
Subjective Subjective Remarks alert in nad, denies chest pain, sob Objective Vital Signs / I&O Vital Signs Date Time Temp Pulse Resp B/P Pulse Ox O2 Delivery O2 Flow Rate FiO2 09/17/16 12:00 96.7 71 18 162/80 91 09/17/16 08:00 97.2 70 18 177/86 92 09/17/16 04:00 98.4 75 19 153/83 92 09/17/16 00:00 96.6 73 19 156/83 92 09/16/16 20:00 98.9 71 19 142/82 92 09/16/16 19:53 77 09/16/16 16:00 98.0 68 14 128/76 98 I/O 09/16/16 09/16/16 09/16/16 09/17/16 09/17/16 09/17/16 07:00 15:00 23:00 07:00 15:00 23:00 Intake Total 825 ml 1416 ml 380 ml 805 ml Output Total 650 ml 700 ml 650 ml Balance 175 ml 716 ml 380 ml 155 ml Intake Oral 120 ml 800 ml 60 ml 60 ml IV Total 705 ml 616 ml 320 ml 745 ml Output Urine Total 650 ml 700 ml 650 ml Bladder Scan Volume Amount 170 ml # Voids 0 # Bowel Movements 0 0 0 0 Physical Exam GENERAL: SKIN: Warm and dry. HEAD: Normocephalic. EYES: No scleral icterus. No injection or drainage. NECK: Supple, trachea midline. No JVD or lymphadenopathy. CARDIOVASCULAR: Regular rate and rhythm without murmurs, gallops, or rubs. RESPIRATORY: Breath sounds equal bilaterally. No accessory muscle use. GASTROINTESTINAL: Abdomen soft, non-tender, nondistended. MUSCULOSKELETAL: No cyanosis, or edema. BACK: Nontender without obvious deformity. No CVA tenderness. Laboratory Laboratory Tests Test 09/17/16 09/17/16 05:15 13:00 Phosphorus Level 3.1 MG/DL Sodium Level 140 MEQ/L Potassium Level 4.4 MEQ/L Chloride Level 114 MEQ/L Carbon Dioxide Level 17.2 MEQ/L Anion Gap 9 MEQ/L Blood Urea Nitrogen 47 MG/DL Creatinine 3.25 MG/DL Estimat Glomerular Filtration 17 ML/MIN Rate Random Glucose 153 MG/DL Calcium Level 8.8 MG/DL Assessment and Plan Problem List: (1) Accelerated hypertension (2) Dehydration (3) ARF (acute renal failure) (4) [id number] kidney injury Assessment and Plan 1.) HTN - improved on nifedipine, coreg and hydralazine, still with spikes suspect due to arf Tonio Puente MD Sep 17, 2016 14:21
--- NOTE | 2016-09-17 18:46 | HHI.PR ---
Subjective Remarks 71 YOAA female with HTN,PHTN,mild sob Breathing better family at Denies CP Objective Vital Signs Vital Signs Date Time Temp Pulse Resp B/P Pulse Ox O2 Delivery O2 Flow Rate FiO2 09/17/16 16:50 72 09/17/16 16:00 97.7 74 18 148/76 94 09/17/16 12:00 96.7 71 18 162/80 91 09/17/16 08:00 97.2 70 18 177/86 92 09/17/16 04:00 98.4 75 19 153/83 92 09/17/16 00:00 96.6 73 19 156/83 92 09/16/16 20:00 98.9 71 19 142/82 92 09/16/16 19:53 77 I/O 09/16/16 09/16/16 09/16/16 09/17/16 09/17/16 09/17/16 07:00 15:00 23:00 07:00 15:00 23:00 Intake Total 825 ml 1416 ml 380 ml 805 ml 480 ml 779 ml Output Total 650 ml 700 ml 650 ml Balance 175 ml 716 ml 380 ml 155 ml 480 ml 779 ml Intake Oral 120 ml 800 ml 60 ml 60 ml 480 ml IV Total 705 ml 616 ml 320 ml 745 ml 779 ml Output Urine Total 650 ml 700 ml 650 ml Bladder Scan Volume Amount 170 ml # Voids 0 1 # Bowel Movements 0 0 0 0 Result Diagram: 09/16/16 1205 09/17/16 1300 Objective Remarks GENERAL: Elderly female,NAD SKIN: Warm and dry. HEAD: Normocephalic. EYES: No scleral icterus. No injection or drainage. NECK: Supple, trachea midline. No JVD or lymphadenopathy. CARDIOVASCULAR: Regular rate and rhythm without murmurs, gallops, or rubs. RESPIRATORY: Breath sounds equal bilaterally. No accessory muscle use. GASTROINTESTINAL: Abdomen soft, non-tender, nondistended. MUSCULOSKELETAL: No cyanosis, or edema. BACK: Nontender without obvious deformity. No CVA tenderness. A/P Assessment and Plan PHTN Uncontrolled HTN CVA H/O Fall PLAN DW family Check PFT Controll BP Encourage PO Monitor renal functions Vern Castanon MD Sep 17, 2016 18:46
[2016-09-17] MEDS: HEPARIN SODIUM - SQ 10,000 UNITS/ML VIAL SQ SCH (22:34)
[2016-09-18] VITALS (9 sets, daily range): BP systolic 149–176; BP diastolic 85–98; PULSE 72–80; RESP 17–20; TEMP 96.6–99; O2SAT 90–93
[2016-09-18] MEDS: NIFEdipine 60 MG SUSTAINED RELEASE TAB PO SCH (07:56)
[2016-09-18] MEDS: CARVEDILOL 12.5 MG TAB PO SCH ×2 (07:56→21:22)
[2016-09-18] MEDS: SODIUM BICARBONATE 650 MG TAB PO SCH ×2 (07:56→21:20)
[2016-09-18] MEDS: hydrALAZINE HCL 25 MG TAB PO SCH ×3 (07:56→21:23)
[2016-09-18] MEDS: SODIUM CHLORIDE 0.9% FLUSH 5 ML FLUSH FLUSH SCH ×2 (07:57→21:23)
--- NOTE | 2016-09-18 10:56 | HHI.NPPN ---
Subjective General Problems: Anemia, Hypertension Renal Failure: Chronic, Acute, Stage IV History of Present Illness 71-year-old female with a past medical history of hypertension and history of chronic kidney disease who came to the hospital because of history of fall from the bed. The patient was admitted on September 14 and I was called to see the patient because of elevated BUN and creatinine. The patient previously has a known history of chronic kidney disease although she is not seeing any service promoter salesperson on a regular basis. Her creatinine a year ago in August of 2015 was 2.1, and now she was admitted with a creatinine of 2.8. Additional Remarks Patient is alert, no SOB,eating better. Review of Systems General Constitutional: Fatigue Cardiovascular Cardiac: VERGARA Objective Data Data 09/17/16 09/18/16 19:00 07:00 Intake Total 1259 ml 1110 ml Output Total 400 ml Balance 1259 ml 710 ml Intake Oral 480 ml 360 ml IV Total 779 ml 750 ml Output Urine Total 400 ml # Voids 1 4 # Bowel Movements 0 Vital Signs Date Time Temp Pulse Resp B/P Pulse Ox O2 Delivery O2 Flow Rate FiO2 09/18/16 08:19 96.7 77 18 92 09/18/16 04:00 97.4 78 20 173/94 92 09/18/16 00:00 97.1 80 19 149/98 92 09/17/16 20:00 98.4 89 20 174/85 92 09/17/16 16:50 72 09/17/16 16:00 97.7 74 18 148/76 94 09/17/16 12:00 96.7 71 18 162/80 91 -: 09/16/16 1205 09/17/16 1300 Physical Exam General Appearance: No Acute Distress, Comfortable Eyes Eye Exam: Pupils Equal Throat Throat Exam: Oral Mucosa [place] & Moist Neck Neck Exam: Neck Supple Pulmonary Resp Exam: No Distress, Rhonchi, Decreased Bases, Diminished Breath Sounds Cardiology CV Exam: Regular, Normal Sinus Rhythm Gastrointestinal/Abdomen GI Exam: Soft, Non-Tender, Bowel Sounds Present Extremeties Extremities Exam: No Edema Neurologic Neuro Exam: Alert, Awake Psychiatric Psych Exam: Appropriate Responses Assessment/Plan Assessment Summary: TRUDI/Acute Renal Failure, Anemia of CKD, Hypertension, CKD Stage IV Problem List: (1) Contusion, hip (2) UTI (urinary tract infection) (3) Dehydration (4) ARF (acute renal failure) (5) Accelerated hypertension (6) [id number] kidney injury Plan Patient has been non oliguric. 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 [place] and [place] are PND. Continue hydration, avoid Nephrotoxins. Follow urine out put and BMP. Encourage oral intake. Danie Sanchez MD Sep 18, 2016 10:56
--- NOTE | 2016-09-18 11:08 | PD.CONS ---
Consult Service Palliative Care Consult Requested By Dr. Coles To assist with goals of care in proxy determination Primary Care Physician Sparkle Maldonado M.D. Reason for Consultation a. To assist with evaluation and management of symptoms including: Goals of care, weakness, confusion b. To assist medical decision maker(s) with: better understanding of current medical conditions; weighing benefits/burdens of medical treatment options; making medical treatment decisions. HPI History of Present Illness This is a 70-year-old female with history of hypertension, TRUDI on CKD4, peripheral edema and weakness who presented to the ER after falling out of bed onto 09/13/16. Prior to admission, she had been staying in bed and sleeping, complaining of being cold but no fevers. On initial examination emergency room she was found to have a high blood pressure 200/106, as well as acute kidney injury with underlying chronic disease. At the time of initial exam. Her BNP was 990 and chest x-ray showed mild cardiomegaly; trace edema to her lower extremities. She was also found to have a UTI. By history, she is reported to hepatic CVA times 3, she has a history of PVD with chronic nonhealing wounds that took years to heal. She has a history of being noncompliant with medications to control her blood pressure. At one time her systolic blood pressure was as high as 283 She was evaluated by cardiology, pulmonology and nephrology. Blood pressures, while still high, are significantly improved. At the time of my visit she is resting in bed, with eyes closed, not engaged in the conversation. She has one daughter, Leti, at the bedside. She has 9 children who live either in the [facility] or in the [facility] [place] area. She is able to identify her daughter by name, but believes she in [facility] [place]. Speech is thick /slurred due to prior strokes. She is able to follow commands to move extremities . Ltei provides most of the information. Towards the end of the meeting, Her daughter Carmen, who has been her primary healthcare provider, came in. Some of the information was briefly reviewed with her. In discussing goals of care Carmen indicated that she believes she has already documentation indicating that she is healthcare surrogate and will bring them in to the hospital. She tells me that at one time she lived in assisted living facility, but after her first stroke went to live w her daughter. She started to show some improvement-eating better, independently and more engaged with family. She will attempt to walk around the room without the use of a cane or walker. She knows when she needs to the toilet is the toilet, however, is incontinent as she is unable to get to the bathroom quick enough. Leti indicated increasing confusion and short-term memory loss. Unable to identify some of her daughter's and grandchildren. Leti does not feel Ms Noel is able to make her own decisions regarding care, as she has a difficult time making decisions about what to eat. . Function/Cognitive Trajectory Mrs. Noel limited functioning capacity due to 3 strokes. At this point. She is independently able to eat. She is able to walk short distances unassisted but is at high risk for falling. She has limited capacity for conversation. She is able to express some of her needs. However, her daughter the findings without she is has some memory loss and would fail to lack insight to make her own medical decisions. She is a high risk for having another stroke due to her blood pressures. Review of Systems ROS Limitations: Clinical Condition Constitutional: COMPLAINS OF: Fatigue, Generalized weakness Genitourinary: COMPLAINS OF: Urinary frequency, Urinary incontinence Musculoskeletal: COMPLAINS OF: Joint pain, Back pain Neurologic: COMPLAINS OF: Poor Balance Psychiatric: COMPLAINS OF: Confusion (review of systems is limited due to patient's clinical condition. Information is obtained from speaking with family or review of clinical record) Past Family Social History Coded Allergies: No Known Allergies (Verified , 09/14/16) Past Medical History Malignant Hypertensiondocumented long-standing history of noncompliance with medication Hypertensive encephalopathy Edema CKD 4hypertensive nephropathy Monoclonal gammopathy Bilateral PVD with history of nonhealing wounds Hepatitis C History of CVA in 2009 plus TIAs Past Surgical History Tubal Ligation Cardiac catheterization to the RCA in 2005 Lower extremity vascular procedure times 2 Reported Medications Has not taken medications in 1 month, however previously on: fluoxetine clonidine PCP took her off lisinopril in the past due to her kidneys Current Medications Medications (Trade) Dose Ordered Sig/Lenora Route Start Time Stop Time Status Last Admin (NS 1000 ml Inj) 1,000 ml @ 84 mls/hr [id number] IV 09/14/16 09:15 09/17/16 20:35 (NS Flush) 2 ml UNSCH PRN FLUSH 09/14/16 09:30 (NS Flush) 2 ml BID FLUSH 09/14/16 21:00 09/17/16 20:29 (Heparin Inj) 5,000 units Q12H SQ 09/14/16 10:00 09/17/16 22:34 (Narcan Inj) 0.4 mg UNSCH PRN IV 09/14/16 09:30 (Coreg) 12.5 mg Q12HR PO 09/14/16 10:00 09/18/16 07:56 (Apresoline) 25 mg Q12HR PO 09/14/16 21:00 09/18/16 07:56 (Procardia Xl) 60 mg DAILY PO 09/15/16 09:00 09/18/16 07:56 (Tylenol) 650 mg Q4H PRN PO 09/16/16 12:00 09/17/16 15:46 (Sodium Bicarbonate) 650 mg Q12HR PO 09/16/16 21:00 09/18/16 07:56 Family History Grew up in the [facility]. She has 9 children. Her mother had end- stage renal disease and hypertension and at age 49. Her father in his eighties of old age. There is additional family history of hypertension, diabetes in the family. Substance Use Tobacco: History of smoked one pack per day times 30 years per day; quit many years ago Alcohol: Rare Prescription med abuse: Denies history Illicits: Denies history Psychosocial History Current Lives with daughter and grandson. She has another daughter who lives across the street. Ms. Noel is Retired . 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 She has 9 children from 2 marriages. . First is . 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 She is listed as next of kin person to contact in the clinical record. She has been the primary caregiver. Leti (daughter) [phone] -lives across the street from her mother. Assists in her care. Germán (son/eldest) [phone] in [place] - felt to be the "boss" in the family Ed (son) [phone]- lives in [facility] Ray (son) [phone] - lives in [facility] are Tim (son) [phone] lives in [place], [place] Annia (daughter) - no available phone number lives in [place], [place] Tae (daughter). No available phone number Scotty (son). No available phone number lives in [place], [place] Spiritual/Cultural Factors Religiously active in the [employer]. 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 Will bring to hospital) Health Care Surrogate(s): Carmen (daughter) [phone] - states she has documentation showing she is health care surrogate. Will bring in documentation Today's verbally stated goals: Today, no clear goals of care are stated. Ethical and Legal Issues None identified Physical Exam Vital Signs Date Time Temp Pulse Resp B/P Pulse Ox O2 Delivery O2 Flow Rate FiO2 09/18/16 08:19 96.7 77 18 92 09/18/16 04:00 97.4 78 20 173/94 92 09/18/16 00:00 97.1 80 19 149/98 92 09/17/16 20:00 98.4 89 20 174/85 92 09/17/16 16:50 72 09/17/16 16:00 97.7 74 18 148/76 94 09/17/16 12:00 96.7 71 18 162/80 91 09/17/16 09/18/16 19:00 07:00 Intake Total 1259 ml 1110 ml Output Total 400 ml Balance 1259 ml 710 ml Intake Oral 480 ml 360 ml IV Total 779 ml 750 ml Output Urine Total 400 ml # Voids 1 4 # Bowel Movements 0 Exam CONSTITUTIONAL/GENERAL: This is an 10 after an Algerian woman in no apparent distress. TUBES/LINES/DRAINS: French catheter, nasal cannula, IV lines SKIN: No jaundice, rashes, or lesions. Skin temperature appropriate. Not diaphoretic. HEAD: Atraumatic. Normocephalic. EYES: Pupils equal and round and reactive. Extraocular motions intact. No scleral icterus. No injection or drainage. Fundi not examined. ENT: Hearing grossly normal. Nose without bleeding or purulent drainage. Throat without visible erythema, exudates, masses, or lesions. NECK: Trachea midline. Supple, nontender. No palpable thyroid enlargement or nodularity. CARDIOVASCULAR: Regular rate and rhythm without murmurs, gallops, or rubs. No JVD. Peripheral pulses symmetric. RESPIRATORY/CHEST: O22L Bibasilar Rales, Symmetric, unlabored respirations. GASTROINTESTINAL: Abdomen soft, non-tender, nondistended. No hepato-splenomegaly , or palpable masses. No guarding. Bowel sounds present. GENITOURINARY: Without palpable bladder distension. French catheter in place. MUSCULOSKELETAL: Extremities without clubbing, cyanosis, or edema. No joint tenderness or effusion noted. No calf tenderness. No mottling or clubbing. LYMPHATICS: No palpable cervical or supraclavicular adenopathy. NEUROLOGICAL: Awake and oriented to self and daughter. Unable to follow commands, but responses weak. cognitively disengaged. PSYCHIATRIC: No overt anxiety or depression Diagnostic Tests Laboratory Laboratory Tests Test 09/16/16 09/17/16 09/17/16 12:05 05:15 13:00 White Blood Count 6.0 TH/MM3 (4.0-11.0) Red Blood Count 3.29 MIL/MM3 (4.00-5.30) Hemoglobin 9.8 GM/DL (11.6-15.3) Hematocrit 29.0 % (35.0-46.0) Mean Corpuscular Volume 88.1 FL (80.0-100.0) Mean Corpuscular Hemoglobin 29.6 PG (27.0-34.0) Mean Corpuscular Hemoglobin 33.6 % Concent (32.0-36.0) Red Cell Distribution Width 14.1 % (11.6-17.2) Platelet Count 188 TH/MM3 (150-450) Mean Platelet Volume 9.8 FL (7.0-11.0) Neutrophils (%) (Auto) 55.5 % (16.0-70.0) Lymphocytes (%) (Auto) 29.7 % (9.0-44.0) Monocytes (%) (Auto) 9.5 % (0.0-8.0) Eosinophils (%) (Auto) 4.2 % (0.0-4.0) Basophils (%) (Auto) 1.1 % (0.0-2.0) Neutrophils # (Auto) 3.3 TH/MM3 (1.8-7.7) Lymphocytes # (Auto) 1.8 TH/MM3 (1.0-4.8) Monocytes # (Auto) 0.6 TH/MM3 (0-0.9) Eosinophils # (Auto) 0.2 TH/MM3 (0-0.4) Basophils # (Auto) 0.1 TH/MM3 (0-0.2) CBC Comment DIFF FINAL Differential Comment Sodium Level 141 MEQ/L 140 MEQ/L (136-145) (136-145) Potassium Level 4.7 MEQ/L 4.4 MEQ/L (3.5-5.1) (3.5-5.1) Chloride Level 114 MEQ/L 114 MEQ/L (98-107) (98-107) Carbon Dioxide Level 16.2 MEQ/L 17.2 MEQ/L (21.0-32.0) (21.0-32.0) Anion Gap 11 MEQ/L (5-15) 9 MEQ/L (5-15) Blood Urea Nitrogen 47 MG/DL (7-18) 47 MG/DL (7-18) Creatinine 3.03 MG/DL 3.25 MG/DL (0.50-1.00) (0.50-1.00) Estimat Glomerular Filtration 18 ML/MIN (>89) 17 ML/MIN (>89) Rate Random Glucose 120 MG/DL 153 MG/DL (74-106) (74-106) Calcium Level 8.6 MG/DL 8.8 MG/DL (8.5-10.1) (8.5-10.1) Acetaminophen Level LESS THAN 2.0 MCG/ML (10.0-30.0) Phosphorus Level 3.1 MG/DL (2.5-4.9) Result Diagram: 09/16/16 1205 09/17/16 1300 Microbiology Laboratory Tests Test 09/14/16 09/14/16 09/14/16 09/14/16 06:45 11:07 12:33 16:53 Prothrombin Time 11.4 SEC Prothromb Time International 1.0 RATIO Ratio Activated Partial 29.9 SEC Thromboplast Time Urine Color LIGHT-YELLOW Urine Turbidity HAZY Urine pH 6.0 Urine Specific [place] 1.010 Urine Protein 100 mg/dL Urine Glucose (UA) NEG mg/dL Urine Ketones NEG mg/dL Urine Occult Blood MOD Urine Nitrite NEG Urine Bilirubin NEG Urine Urobilinogen LESS THAN 2.0 MG/DL Urine Leukocyte Esterase LARGE Urine RBC 70 /hpf Urine WBC 68 /hpf Urine WBC Clumps MANY Urine Squamous Epithelial 8 /hpf Cells Urine Bacteria FEW /hpf Microscopic Urinalysis Comment CATH-CULTURE IND Total Bilirubin 0.4 MG/DL Aspartate Amino Transf 22 U/L (AST/SGOT) Alanine Aminotransferase 24 U/L (ALT/SGPT) Alkaline Phosphatase 75 U/L Total Protein 8.4 GM/DL Albumin 3.4 GM/DL B-Type Natriuretic Peptide 990 PG/ML Blood Gas Puncture Site RT RADIAL Blood Gas Patient Temperature 98.6 Blood Gas HCO3 18 mmol/L Blood Gas Base Excess -6.9 mmol/L Blood Gas Oxygen Saturation 89 % Arterial Blood pH 7.31 Arterial Blood Partial 37 mmHg Pressure CO2 Arterial Blood Partial 68 mmHG Pressure O2 Arterial Blood Oxygen Content 11.2 Vol % Arterial Blood 2.1 % Carboxyhemoglobin Arterial Blood Methemoglobin 1.9 % Blood Gas Hemoglobin 8.9 G/DL Blood Gas Inspired Oxygen 21 % Total Creatine Kinase 107 U/L Troponin I 0.19 NG/ML Test 09/16/16 09/17/16 09/17/16 12:05 05:15 13:00 White Blood Count 6.0 TH/MM3 Red Blood Count 3.29 MIL/MM3 Hemoglobin 9.8 GM/DL Hematocrit 29.0 % Mean Corpuscular Volume 88.1 FL Mean Corpuscular Hemoglobin 29.6 PG Mean Corpuscular Hemoglobin 33.6 % Concent Red Cell Distribution Width 14.1 % Platelet Count 188 TH/MM3 Mean Platelet Volume 9.8 FL Neutrophils (%) (Auto) 55.5 % Lymphocytes (%) (Auto) 29.7 % Monocytes (%) (Auto) 9.5 % Eosinophils (%) (Auto) 4.2 % Basophils (%) (Auto) 1.1 % Neutrophils # (Auto) 3.3 TH/MM3 Lymphocytes # (Auto) 1.8 TH/MM3 Monocytes # (Auto) 0.6 TH/MM3 Eosinophils # (Auto) 0.2 TH/MM3 Basophils # (Auto) 0.1 TH/MM3 CBC Comment DIFF FINAL Differential Comment Acetaminophen Level LESS THAN 2.0 MCG/ML Phosphorus Level 3.1 MG/DL Sodium Level 140 MEQ/L Potassium Level 4.4 MEQ/L Chloride Level 114 MEQ/L Carbon Dioxide Level 17.2 MEQ/L Anion Gap 9 MEQ/L Blood Urea Nitrogen 47 MG/DL Creatinine 3.25 MG/DL Estimat Glomerular Filtration 17 ML/MIN Rate Random Glucose 153 MG/DL Calcium Level 8.8 MG/DL Patient/Family Conference Present at Family Conference: Daughters Leti and Carmen. Carmen is her primary caregiver - patient lives with Carmen. Leti lives across the street. Family Conference Location: Bedside Issues Discussed: * Palliative care role, purpose, approach * Additional medical, psychosocial, and spiritual history * Patients general health, functional status, and cognitive changes in the months leading up to the current hospitalization * Patient/family understanding of the current medical problems * Patient/family understanding of prognosis * Patients goals of care as best understood from advance directives and/or conversations and/or values * Current medical treatment options and benefits/burdens of those options * Likely scenarios comparing ongoing aggressive care with a transition to comfort measures only * Questions answered to the best of my ability * Palliative care contact information provided Assessment and Plan Disease Oriented Problem List: (1) CVA, old, cognitive deficits (2) Malignant hypertension (arteriolar nephrosclerosis) (3) Chronic kidney disease (CKD), stage IV (severe) (4) Qhdkc-at-hednnam kidney injury (5) Dehydration Comment: Resolving (6) UTI (urinary tract infection) Comment: Resolving on antibiotics Symptom Scale: (1) Pain 0-10 Scale: Unable to quantify Comment: History of back problems as well as leg pain. She is able to express that she is uncomfortable, but is unable to reposition herself (2) Dyspnea 0-10 Scale: Unable to quantify Pertinent Non-Medical Issues Psychosocial: Lives with daughter, history of noncompliance with medical recommendations, i.e. 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 None identified Important Contacts Daughter Carmen Noel [phone]. Prognosis At this time Prognosis is fair. She has advancing chronic kidney disease stage IV and she has poorly controlled blood pressure, that at some future point may result in worsening kidney disease and or the eventuality of another stroke rendering her more debilitated than what she is. Code Status: Full Code Plan Decision Maker: Pending clarification Carmen (daughter) [phone] - states she has documentation showing she is health care surrogate. Will bring in documentation. IN the event this document is not produced, descisions will fall onto the majority of adult children. Code Status: Full code at this time Family Discussion: Discussed with daughter Carmen as well as Leti davila determining decision makers in the family when patient is unable to. Discussed areas of invasive procedures, CPR, intubation ....Offered to have a family meeting to discuss goals of care for their mother and 2 guide the family in decision making Symptoms: Weakness, confusion Palliative care phone number provided - will follow during hospital stay. Thank you for the opportunity to participate in the care of Ms. Noel. Attestation To help prompt me to consider important information that might be impacting today's encounter and assessment, information from prior notes written by myself or my colleagues may have been "brought forward" into today's note. My signature on this note, however, is an attestation that I personally performed the exam, history, and/or decision-making noted today, and, unless otherwise indicated, the interactions with patient, family, and staff as well as the review of records all occurred today. I also attest that the listed assessment and stated plan reflect my best clinical judgment today based on the combination of historical information, prior notes, and today's exam/ interactions. When time spent is documented, it refers only to time spent today by the signer, or if indicated, combined time spent today by collaborating physician/nurse practitioner. Jessica Lemus Sep 18, 2016 11:08
[2016-09-18] MEDS: HEPARIN SODIUM - SQ 10,000 UNITS/ML VIAL SQ SCH ×2 (11:37→21:23)
--- NOTE | 2016-09-18 11:44 | HHI.PR ---
Subjective Remarks Daughter at bedside. Difficulties with blood draw this morning. The patient had complained of feeling tired today. Reportedly she was a little short of breath earlier. Denies any pain. No other acute complaints today. Objective Vitals Vital Signs Date Time Temp Pulse Resp B/P Pulse Ox O2 Delivery O2 Flow Rate FiO2 09/18/16 08:19 96.7 77 18 92 09/18/16 04:00 97.4 78 20 173/94 92 09/18/16 00:00 97.1 80 19 149/98 92 09/17/16 20:00 98.4 89 20 174/85 92 09/17/16 16:50 72 09/17/16 16:00 97.7 74 18 148/76 94 09/17/16 12:00 96.7 71 18 162/80 91 I/O 09/17/16 09/17/16 09/17/16 09/18/16 09/18/16 09/18/16 07:00 15:00 23:00 07:00 15:00 23:00 Intake Total 805 ml 480 ml 1769 ml 120 ml Output Total 650 ml 100 ml 300 ml Balance 155 ml 480 ml 1669 ml -180 ml Intake Oral 60 ml 480 ml 240 ml 120 ml IV Total 745 ml 1529 ml Output Urine Total 650 ml 100 ml 300 ml # Voids 1 3 1 # Bowel Movements 0 0 0 Result Diagram: 09/16/16 1205 09/17/16 1300 Objective Remarks GENERAL: Well-developed well-nourished. In no acute distress. SKIN: Warm and dry. No lesions noted. HEENT: Normocephalic. Pupils equal and round. Mucous membranes pink and moist. CARDIOVASCULAR: Regular rate and rhythm. No murmur appreciated. RESPIRATORY: No accessory muscle use. Clear to auscultation. Breath sounds equal bilaterally. GASTROINTESTINAL: Abdomen soft, non-tender, nondistended. Bowel sounds x4. MUSCULOSKELETAL: No obvious deformities. No clubbing or cyanosis. No edema. NEUROLOGICAL: Awake and alert. No focal neurological deficits. Moves upper and lower extremities spontaneously. Normal speech. PSYCHIATRIC: Appropriate mood and affect; insight and judgment limited. Date of Insertion: Sep 14, 2016 Date of Removal: Sep 16, 2016 A/P Assessment and Plan 70-year-old female with history of hypertension, edema, CKD, weakness presents after falling out the bed last night 2/23. Generalized weakness/fatigue with encephalopathy: likely multifactorial secondary to UTI, hypertensive encephalopathy, dehydration, and recent fall. See treatment below. Head CT with old ischemic changes, no acute findings. Consult PT/OT/ST. Hypertensive Encephalopathy secondary to Accelerated HTN: BP 200/106 upon arrival. Secondary to noncompliance with medications. S/p clonidine, hydralazine , coreg in the ED. BP still elevated. Started on hydralazine, Coreg, Nifedipine. Increase hydralazine frequency. Holding off on SHELL/ARB secondary to TRUDI/CKD. Monitor BP, adjust antihypertensives as needed. Still somewhat elevated, but with abdominal bruit on exam, consulted nephrology for eval of poss HEBER. Clonidine as needed. UTI: UA with large leuks, many WBCs. S/p IV Rocephin x3days. Urine culture with no growth. Possible CHF Exacerbation: BNP elevated at 990. CXR with mild cardiomegaly, no acute findings. Trace BLE edema. Echo 09/06/15 showed normal systolic function EF 55-60%, mild MR, mild TR, mild to mod increased pulmonary arterial pressure. Hold diuresis for now, giving gentle hydration with IVF. Consulted patient's bridge teacher, appreciate input. Elevated Troponins: no complaints of chest pain.Trended enzymes are flat at 0.22 , 0.19, 0.19. EKG with no acute ST elevation/depression. Consulted cardiology. Monitor on telemetry. TRUDI on CKD, stage III: hypertensive renal disease. TRUDI secondary to dehydration with decreased recent oral intake. Given IVF, DC. Avoid nephrotoxins. No improvement, consulted nephrology, appreciate input. Follow up BMP. Resume ARB when appropriate. Pulmonary Hypertension: seen on previous echo as above. Consulted pulmonology and cardiology, appreciate input. Check PFTs. Fall, Hip Pain: pt fell out of bed prior to arrival. CPK wnl. Hip/pelvis and femur xray negative for fracture. Consulted PT, patient needs rehab. DVT Prophylaxis: heparin sq Written by Ankur Lizarraga, acting as scribe for Dr. Butler on 09/18/16 at 11:43. Discharge Planning D/W family, patient with 9 children, difficulties with healthcare proxy. Palliative care consult pending. Attending Statement The documentation accurately reflects the work performed [id number] by me, Dr. Butler on 09/18/16 at 11:43. Ankur Lizarraga Sep 18, 2016 11:44 Juanpablo Butler MD Sep 24, 2016 00:44
[2016-09-18] MEDS ORDERED: ASPIRIN 81 MG CHEW TAB CHEW SCH (12:00)
--- NOTE | 2016-09-18 14:07 | PD.CARD.PN ---
Subjective Subjective Remarks alert in nad Objective Vital Signs / I&O Vital Signs Date Time Temp Pulse Resp B/P Pulse Ox O2 Delivery O2 Flow Rate FiO2 09/18/16 08:19 96.7 77 18 92 09/18/16 08:00 176/92 09/18/16 04:00 97.4 78 20 173/94 92 09/18/16 00:00 97.1 80 19 149/98 92 09/17/16 20:00 98.4 89 20 174/85 92 09/17/16 16:50 72 09/17/16 16:00 97.7 74 18 148/76 94 I/O 09/17/16 09/17/16 09/17/16 09/18/16 09/18/16 09/18/16 07:00 15:00 23:00 07:00 15:00 23:00 Intake Total 805 ml 480 ml 1769 ml 120 ml Output Total 650 ml 100 ml 300 ml Balance 155 ml 480 ml 1669 ml -180 ml Intake Oral 60 ml 480 ml 240 ml 120 ml IV Total 745 ml 1529 ml Output Urine Total 650 ml 100 ml 300 ml # Voids 1 3 1 # Bowel Movements 0 0 0 Physical Exam GENERAL: SKIN: Warm and dry. HEAD: Normocephalic. EYES: No scleral icterus. No injection or drainage. NECK: Supple, trachea midline. No JVD or lymphadenopathy. CARDIOVASCULAR: Regular rate and rhythm without murmurs, gallops, or rubs. RESPIRATORY: Breath sounds equal bilaterally. No accessory muscle use. GASTROINTESTINAL: Abdomen soft, non-tender, nondistended. MUSCULOSKELETAL: No cyanosis, or edema. BACK: Nontender without obvious deformity. No CVA tenderness. Imaging GENERAL: SKIN: Warm and dry. HEAD: Normocephalic. EYES: No scleral icterus. No injection or drainage. NECK: Supple, trachea midline. No JVD or lymphadenopathy. CARDIOVASCULAR: Regular rate and rhythm without murmurs, gallops, or rubs. RESPIRATORY: Breath sounds equal bilaterally. No accessory muscle use. GASTROINTESTINAL: Abdomen soft, non-tender, nondistended. MUSCULOSKELETAL: No cyanosis, or edema. BACK: Nontender without obvious deformity. No CVA tenderness. Assessment and Plan Problem List: (1) Accelerated hypertension (2) Dehydration (3) ARF (acute renal failure) (4) [id number] kidney injury Assessment and Plan 1.) HTN - improved on nifedipine, coreg and hydralazine, still with spikes suspect due to arf Tonio Puente MD Sep 18, 2016 14:07
[2016-09-18] MEDS: ASPIRIN EC 81 MG TABEC PO SCH (15:00)
--- NOTE | 2016-09-18 19:51 | HHI.PR ---
Subjective Remarks 71 YOAA female with HTN,PHTN,mild sob Breathing better family at Denies CP No new complaint Objective Vital Signs Vital Signs Date Time Temp Pulse Resp B/P Pulse Ox O2 Delivery O2 Flow Rate FiO2 09/18/16 16:18 97.7 76 18 167/91 90 09/18/16 15:16 78 09/18/16 12:30 96.6 72 17 165/89 90 09/18/16 08:19 96.7 77 18 92 09/18/16 08:00 176/92 09/18/16 04:00 97.4 78 20 173/94 92 09/18/16 00:00 97.1 80 19 149/98 92 09/17/16 20:00 98.4 89 20 174/85 92 I/O 09/17/16 09/17/16 09/17/16 09/18/16 09/18/16 09/18/16 07:00 15:00 23:00 07:00 15:00 23:00 Intake Total 805 ml 480 ml 1769 ml 120 ml 2017 ml Output Total 650 ml 100 ml 300 ml Balance 155 ml 480 ml 1669 ml -180 ml 2017 ml Intake Oral 60 ml 480 ml 240 ml 120 ml 480 ml IV Total 745 ml 1529 ml 1537 ml Output Urine Total 650 ml 100 ml 300 ml # Voids 1 3 1 3 # Bowel Movements 0 0 0 0 Result Diagram: 09/16/16 1205 09/17/16 1300 Objective Remarks GENERAL: Elderly female,NAD SKIN: Warm and dry. HEAD: Normocephalic. EYES: No scleral icterus. No injection or drainage. NECK: Supple, trachea midline. No JVD or lymphadenopathy. CARDIOVASCULAR: Regular rate and rhythm without murmurs, gallops, or rubs. RESPIRATORY: Breath sounds equal bilaterally. No accessory muscle use. GASTROINTESTINAL: Abdomen soft, non-tender, nondistended. MUSCULOSKELETAL: No cyanosis, or edema. BACK: Nontender without obvious deformity. No CVA tenderness. A/P Assessment and Plan PHTN Uncontrolled HTN CVA H/O Fall PLAN DW family Check PFT Controll BP Encourage PO Vern Castanon MD Sep 18, 2016 19:51
[2016-09-18 21:18] LABS: BICARBONATE 15.9 MEQ/L (21.0-32.0); POTASSIUM 4.8 MEQ/L (3.5-5.1)
[2016-09-18] MEDS: ACETAMINOPHEN 325 MG TAB PO PRN (21:20)
--- NOTE | 2016-09-18 23:09 | RADRPT ---
EXAM DATE/TIME: 09/18/2016 22:55 [facility] COMPARISON: CHEST SINGLE AP, September 14, 2016, 7:19. INDICATIONS : Difficulty breathing. MEDICAL HISTORY : Stroke. Hypertension. SURGICAL HISTORY : None. ENCOUNTER: Subsequent ACUITY: 4 - 6 days PAIN SCORE: 0/10 LOCATION: Bilateral chest FINDINGS: A single view of the chest demonstrates bilateral mostly basilar airspace disease. No significant eff usion. Cardiomegaly. No pneumothorax. Tortuous aorta. CONCLUSION: 1. Bilateral mostly basilar airspace disease with cardiomegaly. Differential diagnosis includes mild edema and atelectasis/consolidation. Riky Elmore MD on September 18, 2016 at 23:04 Board Certified Radiologist. This report was verified electronically.
[2016-09-19] VITALS (7 sets, daily range): BP systolic 150–177; BP diastolic 83–94; PULSE 67–79; RESP 17–21; TEMP 96.1–97.1; O2SAT 88–94
[2016-09-19] MEDS: RESP: ALBUTEROL 2.5 MG/IPRATROPIUM 0.5 MG NEB (PRN) NEB (00:34)
[2016-09-19] MEDS ORDERED: FUROSEMIDE 20 MG/2 ML VIAL IV PUSH ONE (01:45)
[2016-09-19] MEDS: hydrALAZINE HCL 25 MG TAB PO SCH (06:45)
[2016-09-19] MEDS: HEPARIN SODIUM - SQ 10,000 UNITS/ML VIAL SQ SCH ×2 (08:42→20:28)
[2016-09-19] MEDS: CARVEDILOL 12.5 MG TAB PO SCH ×2 (08:42→20:27)
[2016-09-19] MEDS: ASPIRIN EC 81 MG TABEC PO SCH (08:42)
[2016-09-19] MEDS: NIFEdipine 60 MG SUSTAINED RELEASE TAB PO SCH (08:42)
[2016-09-19] MEDS: SODIUM CHLORIDE 0.9% FLUSH 5 ML FLUSH FLUSH SCH ×2 (08:43→21:00)
[2016-09-19] MEDS: SODIUM BICARBONATE 650 MG TAB PO SCH ×2 (09:00→20:27)
--- NOTE | 2016-09-19 10:20 | HHI.NPPN ---
Subjective General Problems: Anemia, Hypertension Renal Failure: Chronic, Acute, Stage IV History of Present Illness 71-year-old female with a past medical history of hypertension and history of chronic kidney disease who came to the hospital because of history of fall from the bed. The patient was admitted on September 14 and I was called to see the patient because of elevated BUN and creatinine. The patient previously has a known history of chronic kidney disease although she is not seeing any director of rooms on a regular basis. Her creatinine a year ago in August of 2015 was 2.1, and now she was admitted with a creatinine of 2.8. Additional Remarks Patient is alert, had some SOB,now better, not eating well. Review of Systems General Constitutional: Fatigue Cardiovascular Cardiac: VERGARA Objective Data Data 09/18/16 09/19/16 19:00 07:00 Intake Total 2016 ml 360 ml Balance 2016 ml 360 ml Intake Oral 480 ml 360 ml IV Total 1537 ml # Voids 3 3 # Bowel Movements 0 1 Vital Signs Date Time Temp Pulse Resp B/P Pulse Ox O2 Delivery O2 Flow Rate FiO2 09/19/16 08:00 97.1 74 18 165/89 93 09/19/16 04:00 96.1 69 21 174/84 92 09/19/16 01:37 88 Nasal Cannula 6.00 09/19/16 00:00 96.1 67 19 150/83 92 09/18/16 22:00 91 Nasal Cannula 5.00 09/18/16 20:00 99.0 77 19 161/85 93 09/18/16 16:18 97.7 76 18 167/91 90 09/18/16 15:16 78 09/18/16 12:30 96.6 72 17 165/89 90 -: 09/16/16 1205 09/18/161956 Physical Exam General Appearance: No Acute Distress, Comfortable Eyes Eye Exam: Pupils Equal Throat Throat Exam: Oral Mucosa [place] & Moist Neck Neck Exam: Neck Supple Pulmonary Resp Exam: No Distress, Rhonchi, Decreased Bases, Diminished Breath Sounds Cardiology CV Exam: Regular, Normal Sinus Rhythm Gastrointestinal/Abdomen GI Exam: Soft, Non-Tender, Bowel Sounds Present Extremeties Extremities Exam: No Edema Neurologic Neuro Exam: Alert, Awake Psychiatric Psych Exam: Appropriate Responses Assessment/Plan Assessment Summary: TRUDI/Acute Renal Failure, Anemia of CKD, Hypertension, CKD Stage IV Problem List: (1) Contusion, hip (2) UTI (urinary tract infection) (3) Dehydration (4) ARF (acute renal failure) (5) Accelerated hypertension (6) Ujuky-vp-yctrkoh kidney injury Plan Patient has been non oliguric. 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 [place] and Lambda are PND. Got one dose of Lasix early AM. IVF stopped. No BMP today, follow in AM. Encourage oral intake, and now getting PT. Danie Sanchez MD Sep 19, 2016 10:20
[2016-09-19] MEDS: ACETAMINOPHEN 325 MG TAB PO PRN (11:47)
--- NOTE | 2016-09-19 11:55 | HHI.HCPN ---
Reason for visit a. To assist with evaluation and management of symptoms including: Goals of care, weakness, confusion b. To assist medical decision maker(s) with: better understanding of current medical conditions; weighing benefits/burdens of medical treatment options; making medical treatment decisions. Subjective/Interval History Ms Noel is seen today with improving hypertensive encephalopathy. She also has a history of stroke. She is more awake this morning and engages in some conversation. She is unable to tell me date, city or location. She is able to tell me she is uncomfortable - her back and that she is hungry. I set up her tray for her to eat, but she did not attempt to reach for the fork or spoon. Blood pressures are more normalized w medication . She remains on O2 NC at 2 L and O2 Sat at 93%. Ms Noel is seen again this afternoon sitting up in the chair, able to hold herself erect and reposition herself in the chair. She is bright and alert. Her daughter, Leti is present. Stated she ate very little lunch and opted to be fed. Carmen has yet to bring a document reflecting HCS. At this point, the patient remains a full code. The daughters were unable to address DNR status yesterday , as they wanted to talk to the rest of the family. Offered to have a family meeting to help clarify goals of care if they feel it would be of benefit. Family/friend interactions Spoke briefly rubina Landeros. Discussed discharge planning. She is thinking she will return home with her and hopefully get in home care. Advance Directives Health Care Surrogate: Completed, but not made available (her daughter Carmen believes that she has a document showing that she is appointed as healthcare proxy. Will bring to hospital) Advance Directive Specifics Health Care Surrogate(s): Carmen (daughter) [phone] - states she has documentation showing she is health care surrogate. Will bring in documentation Objective Vital Signs Date Time Temp Pulse Resp B/P Pulse Ox O2 Delivery O2 Flow Rate FiO2 09/19/16 08:00 97.1 74 18 165/89 93 09/19/16 04:00 96.1 69 21 174/84 92 09/19/16 01:37 88 Nasal Cannula 6.00 09/19/16 00:00 96.1 67 19 150/83 92 09/18/16 22:00 91 Nasal Cannula 5.00 09/18/16 20:00 99.0 77 19 161/85 93 09/18/16 16:18 97.7 76 18 167/91 90 09/18/16 15:16 78 09/18/16 12:30 96.6 72 17 165/89 90 Intake & Output 09/19/16 09/19/16 07:00 19:00 Intake Total 360 ml Balance 360 ml Intake Oral 360 ml # Voids 3 # Bowel Movements 1 Physical Exam CONSTITUTIONAL/GENERAL: Awake, alert, up in chair, in no distress. TUBES/LINES/DRAINS: French catheter, nasal cannula, IV lines SKIN: No jaundice, rashes, or lesions. Skin temperature appropriate. Not diaphoretic. HEAD: Atraumatic. Normocephalic. EYES: Pupils equal and round and reactive. Extraocular motions intact. No scleral icterus. No injection or drainage. Fundi not examined. ENT: Hearing grossly normal. Nose without bleeding or purulent drainage. Throat without visible erythema, exudates, masses, or lesions. NECK: Trachea midline. Supple, nontender. No palpable thyroid enlargement or nodularity. CARDIOVASCULAR: Regular rate and rhythm without murmurs, gallops, or rubs. No JVD. Peripheral pulses symmetric. RESPIRATORY/CHEST: O25L Bibasilar Rales, diminished Symmetric, unlabored respirations. GASTROINTESTINAL: Abdomen soft, non-tender, nondistended. No hepato-splenomegaly , or palpable masses. No guarding. Bowel sounds present. GENITOURINARY: Without palpable bladder distension. French catheter in place. MUSCULOSKELETAL: Extremities without clubbing, cyanosis, or edema. No joint tenderness or effusion noted. No calf tenderness. No mottling or clubbing. LYMPHATICS: No palpable cervical or supraclavicular adenopathy. NEUROLOGICAL: Awake and oriented to self. Followed a few simple commands, but responses weak. cognitively disengaged. PSYCHIATRIC: No overt anxiety or depression Diagnostic Tests Laboratory Laboratory Tests Test 09/16/16 09/17/16 09/17/16 09/18/16 12:05 05:15 13:00 19:57 White Blood Count 6.0 TH/MM3 (4.0-11.0) Red Blood Count 3.29 MIL/MM3 (4.00-5.30) Hemoglobin 9.8 GM/DL (11.6-15.3) Hematocrit 29.0 % (35.0-46.0) Mean Corpuscular Volume 88.1 FL (80.0-100.0) Mean Corpuscular Hemoglobin 29.6 PG (27.0-34.0) Mean Corpuscular Hemoglobin 33.6 % Concent (32.0-36.0) Red Cell Distribution Width 14.1 % (11.6-17.2) Platelet Count 188 TH/MM3 (150-450) Mean Platelet Volume 9.8 FL (7.0-11.0) Neutrophils (%) (Auto) 55.5 % (16.0-70.0) Lymphocytes (%) (Auto) 29.7 % (9.0-44.0) Monocytes (%) (Auto) 9.5 % (0.0-8.0) Eosinophils (%) (Auto) 4.2 % (0.0-4.0) Basophils (%) (Auto) 1.1 % (0.0-2.0) Neutrophils # (Auto) 3.3 TH/MM3 (1.8-7.7) Lymphocytes # (Auto) 1.8 TH/MM3 (1.0-4.8) Monocytes # (Auto) 0.6 TH/MM3 (0-0.9) Eosinophils # (Auto) 0.2 TH/MM3 (0-0.4) Basophils # (Auto) 0.1 TH/MM3 (0-0.2) CBC Comment DIFF FINAL Differential Comment Sodium Level 141 MEQ/L 140 MEQ/L 141 MEQ/L (136-145) (136-145) (136-145) Potassium Level 4.7 MEQ/L 4.4 MEQ/L 4.8 MEQ/L (3.5-5.1) (3.5-5.1) (3.5-5.1) Chloride Level 114 MEQ/L 114 MEQ/L 115 MEQ/L (98-107) (98-107) (98-107) Carbon Dioxide Level 16.2 MEQ/L 17.2 MEQ/L 15.9 MEQ/L (21.0-32.0) (21.0-32.0) (21.0-32.0) Anion Gap 11 MEQ/L (5-15) 9 MEQ/L (5-15) 10 MEQ/L (5-15) Blood Urea Nitrogen 47 MG/DL (7-18) 47 MG/DL (7-18) 54 MG/DL (7-18) Creatinine 3.03 MG/DL 3.25 MG/DL 3.16 MG/DL (0.50-1.00) (0.50-1.00) (0.50-1.00) Estimat Glomerular Filtration 18 ML/MIN (>89) 17 ML/MIN (>89) 17 ML/MIN (>89) Rate Random Glucose 120 MG/DL 153 MG/DL 112 MG/DL (74-106) (74-106) (74-106) Calcium Level 8.6 MG/DL 8.8 MG/DL 9.2 MG/DL (8.5-10.1) (8.5-10.1) (8.5-10.1) Acetaminophen Level LESS THAN 2.0 MCG/ML (10.0-30.0) Phosphorus Level 3.1 MG/DL (2.5-4.9) Result Diagram: 09/16/16 1205 09/18/161956 Assessment and Plan Disease Oriented Problem List: (1) CVA, old, 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 (3) Chronic kidney disease (CKD), stage IV (severe) (4) Jctwp-ag-zxnnkko kidney injury Comment: stable (5) Dehydration Comment: Resolving (6) UTI (urinary tract infection) Comment: Resolving on antibiotics Symptom Scale: (1) Pain 0-10 Scale: Unable to quantify Comment: History of back problems as well as leg pain. She is able to express that she is uncomfortable, but is unable to reposition herself (2) Dyspnea 0-10 Scale: Unable to quantify Pertinent Non-Medical Issues Psychosocial: Lives with daughter, history of noncompliance with medical recommendations, i.e. not taking her blood pressure medications, Spiritual: [employer] [facility] would accept it Propagation Manager visit Legal: None identified Ethical issues impacting care: 1. None identified Important Contacts Daughter Carmen Noel [phone]. Additional family Carmen (daughter) [phone] - living with this daughterbelieve she has paperwork indicating she is health care surrogate. She is listed as next of kin person to contact in the clinical record. She has been the primary caregiver. Leti (daughter) [phone] -lives across the street from her mother. Assists in her care. Germán (son/eldest) [phone] in [place] - felt to be the "boss" in the family Ed (son) [phone]- lives in [facility] Ray (son) [phone] - lives in [facility] are Tim (son) [phone] lives in [place], [place] Annia (daughter) - no available phone number lives in [place], [place] Tae (daughter). No available phone number Scotty (son). No available phone number lives in [place], [place] Prognosis At this time Prognosis is fair. She has had CVA and TIAs , advancing chronic kidney disease stage IV and she has poorly controlled blood pressure, that at some future point may result in worsening kidney disease and or the eventuality of another stroke rendering her more debilitated than what she is. Code Status: Full Code Plan Decision Maker: Pending clarification Carmen (daughter) [phone] - states she has documentation showing she is health care surrogate. Will bring in documentation Code Status: Full code at this time Family Discussion 09/18/16 Discussed with daughter Carmen and, Leti determining decision makers in the family when patient is unable to. Discussed areas of invasive procedures, CPR, intubation ....Offered to have a family meeting to discuss goals of care for their mother and to guide the family in decision making Palliative care phone number provided - will follow during hospital stay. Attestation To help prompt me to consider important information that might be impacting today's encounter and assessment, information from prior notes written by myself or my colleagues may have been "brought forward" into today's note. My signature on this note, however, is an attestation that I personally performed the exam, history, and/or decision-making noted today, and, unless otherwise indicated, the interactions with patient, family, and staff as well as the review of records all occurred today. I also attest that the listed assessment and stated plan reflect my best clinical judgment today based on the combination of historical information, prior notes, and today's exam/ interactions. When time spent is documented, it refers only to time spent today by the signer, or if indicated, combined time spent today by collaborating physician/nurse practitioner. Jessica Lemus Sep 19, 2016 11:55
--- NOTE | 2016-09-19 13:18 | HHI.PR ---
Subjective Remarks Follow-up for hypertension Blood pressure better, still mildly confused. No overnight events. No nausea or vomiting. Objective Vitals Vital Signs Date Time Temp Pulse Resp B/P Pulse Ox O2 Delivery O2 Flow Rate FiO2 09/19/16 09:32 94 Nasal Cannula 6.00 09/19/16 08:00 97.1 74 18 165/89 93 09/19/16 04:00 96.1 69 21 174/84 92 09/19/16 01:37 88 Nasal Cannula 6.00 09/19/16 00:00 96.1 67 19 150/83 92 09/18/16 22:00 91 Nasal Cannula 5.00 09/18/16 20:00 99.0 77 19 161/85 93 09/18/16 16:18 97.7 76 18 167/91 90 09/18/16 15:16 78 I/O 09/18/16 09/18/16 09/18/16 09/19/16 09/19/16 09/19/16 07:00 15:00 23:00 07:00 15:00 23:00 Intake Total 120 ml 2016 ml 240 ml 120 ml Output Total 300 ml Balance -180 ml 2016 ml 240 ml 120 ml Intake Oral 120 ml 480 ml 240 ml 120 ml IV Total 1537 ml Output Urine Total 300 ml # Voids 1 3 1 2 # Bowel Movements 0 0 0 1 Result Diagram: 09/16/16 1205 09/18/161956 Objective Remarks GENERAL: Well-developed well-nourished. In no acute distress. SKIN: Warm and dry. No lesions noted. HEENT: Normocephalic. Pupils equal and round. Mucous membranes pink and moist. CARDIOVASCULAR: Regular rate and rhythm. No murmur appreciated. RESPIRATORY: No accessory muscle use. Clear to auscultation. Breath sounds equal bilaterally. GASTROINTESTINAL: Abdomen soft, non-tender, nondistended. Bowel sounds x4. MUSCULOSKELETAL: No obvious deformities. No clubbing or cyanosis. No edema. NEUROLOGICAL: Awake and alert. No focal neurological deficits. Moves upper and lower extremities spontaneously. Normal speech. Slow mentation. Date of Insertion: Sep 14, 2016 Date of Removal: Sep 16, 2016 A/P Assessment and Plan 70-year-old female with history of hypertension, edema, CKD, weakness presents after falling out the bed last night 2/23. Generalized weakness/fatigue with encephalopathy: likely multifactorial secondary to UTI, hypertensive encephalopathy, dehydration, and recent fall. See treatment below. Head CT with old ischemic changes, no acute findings. Consult PT/OT/ST. Hypertensive Encephalopathy secondary to Accelerated HTN: BP 200/106 upon arrival. . Holding off on SHELL/ARB secondary to TRUDI/CKD. Monitor BP, continue Coreg, continue nifedipine, increase hydralazine. UTI: UA with large leuks, many WBCs. S/p IV Rocephin x3days. Urine culture with no growth. Possible CHF Exacerbation: BNP elevated at 990. CXR with mild cardiomegaly, no acute findings. Trace BLE edema. Echo 09/06/15 showed normal systolic function EF 55-60%, mild MR, mild TR, mild to mod increased pulmonary arterial pressure. Hold diuresis for now, giving gentle hydration with IVF. Consulted patient's bi data modeler, appreciate input. Elevated Troponins: no complaints of chest pain.Trended enzymes are flat at 0.22 , 0.19, 0.19. EKG with no acute ST elevation/depression. Consulted cardiology. Monitor on telemetry. TRUDI on CKD, stage III: hypertensive renal disease. TRUDI secondary to dehydration with decreased recent oral intake. Given IVF, DC. Avoid nephrotoxins. No improvement, consulted nephrology, appreciate input. Follow up BMP. Resume ARB when appropriate. Pulmonary Hypertension: seen on previous echo as above. Consulted pulmonology and cardiology, appreciate input. Follow-up Fall, Hip Pain: pt fell out of bed prior to arrival. CPK wnl. Hip/pelvis and femur xray negative for fracture. Patient needs rehabilitation, consult case management DVT Prophylaxis: heparin sq Palliative care consult. Discharge Planning Likely discharge tomorrow Arin Campo MD Sep 19, 2016 13:18
--- NOTE | 2016-09-19 14:51 | PD.CARD.PN ---
Subjective Subjective Remarks alert in nad Objective Vital Signs / I&O Vital Signs Date Time Temp Pulse Resp B/P Pulse Ox O2 Delivery O2 Flow Rate FiO2 09/19/16 09:32 94 Nasal Cannula 6.00 09/19/16 08:00 97.1 74 18 165/89 93 09/19/16 04:00 96.1 69 21 174/84 92 09/19/16 01:37 88 Nasal Cannula 6.00 09/19/16 00:00 96.1 67 19 150/83 92 09/18/16 22:00 91 Nasal Cannula 5.00 09/18/16 20:00 99.0 77 19 161/85 93 09/18/16 16:18 97.7 76 18 167/91 90 09/18/16 15:16 78 I/O 09/18/16 09/18/16 09/18/16 09/19/16 09/19/16 09/19/16 07:00 15:00 23:00 07:00 15:00 23:00 Intake Total 120 ml 2016 ml 240 ml 120 ml 240 ml Output Total 300 ml Balance -180 ml 2017 ml 240 ml 120 ml 240 ml Intake Oral 120 ml 480 ml 240 ml 120 ml 240 ml IV Total 1537 ml Output Urine Total 300 ml # Voids 1 3 1 2 2 # Bowel Movements 0 0 0 1 0 Physical Exam GENERAL: SKIN: Warm and dry. HEAD: Normocephalic. EYES: No scleral icterus. No injection or drainage. NECK: Supple, trachea midline. No JVD or lymphadenopathy. CARDIOVASCULAR: Regular rate and rhythm without murmurs, gallops, or rubs. RESPIRATORY: Breath sounds equal bilaterally. No accessory muscle use. GASTROINTESTINAL: Abdomen soft, non-tender, nondistended. MUSCULOSKELETAL: No cyanosis, or edema. BACK: Nontender without obvious deformity. No CVA tenderness. Laboratory Laboratory Tests Test 09/18/16 19:57 Sodium Level 141 MEQ/L Potassium Level 4.8 MEQ/L Chloride Level 115 MEQ/L Carbon Dioxide Level 15.9 MEQ/L Anion Gap 10 MEQ/L Blood Urea Nitrogen 54 MG/DL Creatinine 3.16 MG/DL Estimat Glomerular Filtration 17 ML/MIN Rate Random Glucose 112 MG/DL Calcium Level 9.2 MG/DL Assessment and Plan Problem List: (1) Accelerated hypertension (2) Dehydration (3) ARF (acute renal failure) (4) [id number] kidney injury Assessment and Plan 1.) HTN - improved on nifedipine, coreg and hydralazine, still with spikes suspect due to arf Tonio Puente MD Sep 19, 2016 14:51
[2016-09-19] MEDS: hydrALAZINE HCL 50 MG TAB PO SCH ×2 (15:54→20:27)
--- NOTE | 2016-09-19 19:35 | HHI.PR ---
Subjective Remarks 71 YOAA female with HTN,PHTN,mild sob Breathing better family at Denies CP Anxious to go home Daughter would like to take her home Objective Vital Signs Vital Signs Date Time Temp Pulse Resp B/P Pulse Ox O2 Delivery O2 Flow Rate FiO2 09/19/16 16:00 96.2 76 17 177/94 91 175/90 09/19/16 09:32 94 Nasal Cannula 6.00 09/19/16 08:00 97.1 74 18 165/89 93 09/19/16 04:00 96.1 69 21 174/84 92 09/19/16 01:37 88 Nasal Cannula 6.00 09/19/16 00:00 96.1 67 19 150/83 92 09/18/16 22:00 91 Nasal Cannula 5.00 09/18/16 20:00 99.0 77 19 161/85 93 I/O 09/18/16 09/18/16 09/18/16 09/19/16 09/19/16 09/19/16 06:59 14:59 22:59 06:59 14:59 22:59 Intake Total 120 ml 2016 ml 240 ml 120 ml 240 ml Output Total 300 ml Balance -180 ml 2016 ml 240 ml 120 ml 240 ml Intake Oral 120 ml 480 ml 240 ml 120 ml 240 ml IV Total 1537 ml Output Urine Total 300 ml # Voids 1 3 1 2 2 # Bowel Movements 0 0 0 1 0 Result Diagram: 09/16/16 1205 09/18/161956 Objective Remarks GENERAL: Elderly female,NAD SKIN: Warm and dry. HEAD: Normocephalic. EYES: No scleral icterus. No injection or drainage. NECK: Supple, trachea midline. No JVD or lymphadenopathy. CARDIOVASCULAR: Regular rate and rhythm without murmurs, gallops, or rubs. RESPIRATORY: Breath sounds equal bilaterally. No accessory muscle use. GASTROINTESTINAL: Abdomen soft, non-tender, nondistended. MUSCULOSKELETAL: No cyanosis, or edema. BACK: Nontender without obvious deformity. No CVA tenderness. A/P Assessment and Plan PHTN Uncontrolled HTN CVA H/O Fall PLAN DW family Check PFT Controll BP Encourage PO DC plans for home Vern Castanon MD Sep 19, 2016 19:35
[2016-09-20] VITALS (8 sets, daily range): BP systolic 148–190; BP diastolic 72–100; PULSE 72–97; RESP 16–21; TEMP 96.2–97.9; O2SAT 92–100
[2016-09-20] MEDS: ACETAMINOPHEN 325 MG TAB PO PRN ×2 (00:21→18:05)
[2016-09-20 03:52] LABS: KAPPA/LAMBDA FREE 1.84 (0.26-1.65)
[2016-09-20] MEDS: hydrALAZINE HCL 50 MG TAB PO SCH (05:09)
--- NOTE | 2016-09-20 08:53 | PD.CARD.PN ---
Subjective Subjective Remarks alert in nad Objective Vital Signs / I&O Vital Signs Date Time Temp Pulse Resp B/P Pulse Ox O2 Delivery O2 Flow Rate FiO2 09/20/16 04:00 97.9 75 16 172/94 92 09/20/16 00:00 97.5 97 16 165/96 100 09/19/16 18:30 79 09/19/16 16:00 96.2 76 17 177/94 91 175/90 09/19/16 09:32 94 Nasal Cannula 6.00 I/O 09/19/16 09/19/16 09/19/16 09/20/16 09/20/16 09/20/16 07:00 15:00 23:00 07:00 15:00 23:00 Intake Total 120 ml 240 ml 0 ml 360 ml Balance 120 ml 240 ml 0 ml 360 ml Intake Oral 120 ml 240 ml 0 ml 360 ml # Voids 2 2 0 2 # Bowel Movements 1 0 Physical Exam GENERAL: SKIN: Warm and dry. HEAD: Normocephalic. EYES: No scleral icterus. No injection or drainage. NECK: Supple, trachea midline. No JVD or lymphadenopathy. CARDIOVASCULAR: Regular rate and rhythm without murmurs, gallops, or rubs. RESPIRATORY: Breath sounds equal bilaterally. No accessory muscle use. GASTROINTESTINAL: Abdomen soft, non-tender, nondistended. MUSCULOSKELETAL: No cyanosis, or edema. BACK: Nontender without obvious deformity. No CVA tenderness. Assessment and Plan Problem List: (1) Accelerated hypertension (2) Dehydration (3) ARF (acute renal failure) (4) [id number]-dnfrxrp kidney injury Assessment and Plan 1.) HTN - improved on nifedipine, coreg still with spikes suspect due to arf Tonio Puente MD Sep 20, 2016 08:52
[2016-09-20 09:02] LABS: BICARBONATE 17.9 MEQ/L (21.0-32.0); POTASSIUM 4.6 MEQ/L (3.5-5.1)
[2016-09-20] MEDS: HEPARIN SODIUM - SQ 10,000 UNITS/ML VIAL SQ SCH ×2 (09:54→21:52)
[2016-09-20] MEDS: ASPIRIN EC 81 MG TABEC PO SCH (09:54)
[2016-09-20] MEDS: NIFEdipine 60 MG SUSTAINED RELEASE TAB PO SCH (09:54)
[2016-09-20] MEDS: SODIUM BICARBONATE 650 MG TAB PO SCH ×2 (09:54→21:41)
[2016-09-20] MEDS: CARVEDILOL 12.5 MG TAB PO SCH ×2 (09:55→21:00)
[2016-09-20] MEDS: SODIUM CHLORIDE 0.9% FLUSH 5 ML FLUSH FLUSH SCH ×2 (09:55→21:41)
--- NOTE | 2016-09-20 11:31 | HHI.NPPN ---
Subjective General Problems: Anemia, Hypertension Renal Failure: Chronic, Acute, Stage IV History of Present Illness 71-year-old female with a past medical history of hypertension and history of chronic kidney disease who came to the hospital because of history of fall from the bed. The patient was admitted on September 14 and I was called to see the patient because of elevated BUN and creatinine. The patient previously has a known history of chronic kidney disease although she is not seeing any needle valve operator on a regular basis. Her creatinine a year ago in August of 2015 was 2.1, and now she was admitted with a creatinine of 2.8. Additional Remarks Patient is alert, not eating well, no SOB. Review of Systems General Constitutional: Fatigue Cardiovascular Cardiac: VERGARA Objective Data Data 09/19/16 09/20/16 19:00 07:00 Intake Total 240 ml 360 ml Balance 240 ml 360 ml Intake Oral 240 ml 360 ml # Voids 2 2 # Bowel Movements 0 Vital Signs Date Time Temp Pulse Resp B/P Pulse Ox O2 Delivery O2 Flow Rate FiO2 09/20/16 08:00 96.9 80 16 190/96 98 09/20/16 04:00 97.9 75 16 172/94 92 09/20/16 00:00 97.5 97 16 165/96 100 09/19/16 18:30 79 09/19/16 16:00 96.2 76 17 177/94 91 175/90 -: 09/16/16 1205 09/20/16 0826 Physical Exam General Appearance: No Acute Distress, Comfortable Eyes Eye Exam: Pupils Equal Throat Throat Exam: Oral Mucosa [place] & Moist Neck Neck Exam: Neck Supple Pulmonary Resp Exam: No Distress, Rhonchi, Decreased Bases, Diminished Breath Sounds Cardiology CV Exam: Regular, Normal Sinus Rhythm Gastrointestinal/Abdomen GI Exam: Soft, Non-Tender, Bowel Sounds Present Extremeties Extremities Exam: No Edema Neurologic Neuro Exam: Alert, Awake Psychiatric Psych Exam: Appropriate Responses Assessment/Plan Assessment Summary: TRUDI/Acute Renal Failure, Anemia of CKD, Hypertension, CKD Stage IV Problem List: (1) Contusion, hip (2) UTI (urinary tract infection) (3) Dehydration (4) ARF (acute renal failure) (5) Accelerated hypertension (6) Dapba-bx-spqyzew kidney injury Plan Patient has been non oliguric. 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 [place] and Lambda are elevated. Possibly has MCGUS or LCD. Will get Hematology consult. Encourage oral intake. Danie Sanchez MD Sep 20, 2016 11:31
[2016-09-20] MEDS: cloNIDine HCL 0.1 MG TAB PO PRN (12:33)
--- NOTE | 2016-09-20 13:01 | HHI.HCPN ---
Reason for visit a. To assist with evaluation and management of symptoms including: Goals of care, weakness, confusion b. To assist medical decision maker(s) with: better understanding of current medical conditions; weighing benefits/burdens of medical treatment options; making medical treatment decisions. Subjective/Interval History Ms Noel is improving. Her daughter. Carmen is visiting her this morning. She has been more awake and more talkative. Yesterday was sitting up in the chair comfortably. She remains challenged with eating. Appetite is poor. Last evening. The family was visiting her and they were discussing her goals of care. She had told them that she would want CPR but would not want to be intubated. I asked Ms. Noel, the question for clarification and she nodded her head yes. Carmen states the family is in agreement. Carmen has yet to find paperwork indicating she is HCS. Discussed again that the majority of the adult family would be required to make healthcare decisions. Discharge plans are pending to SNF. However, daughter, Leti would like to take her home. At this point, she remains oxygen dependent 2-4 L. She is incontinent and requires assistance with feeding. Intake is poor. Discussed with Carmen that at some future point she may need a feeding tube if her appetite doesn't improve. Advance Directives Advance Directive Specifics Health Care Surrogate(s): Known officially designated at this point .. Carmen (daughter) [phone] has been patient's primary caregiver Significant change in goals: Carmen today indicated and was confirmed by patient but she wishes to have CPR ( compressions, shock, ACLS drugs), no intubation Objective Vital Signs Date Time Temp Pulse Resp B/P Pulse Ox O2 Delivery O2 Flow Rate FiO2 09/20/16 08:00 96.9 80 16 190/96 98 09/20/16 04:00 97.9 75 16 172/94 92 09/20/16 00:00 97.5 97 16 165/96 100 09/19/16 18:30 79 09/19/16 16:00 96.2 76 17 177/94 91 175/90 Intake & Output 09/20/16 09/20/16 07:00 19:00 Intake Total 360 ml Balance 360 ml Intake Oral 360 ml # Voids 2 Physical Exam CONSTITUTIONAL/GENERAL: Awake, alert, lying in bed, in no distress. TUBES/LINES/DRAINS: French catheter, nasal cannula, IV lines SKIN: No jaundice, rashes, or lesions. Skin temperature appropriate. Not diaphoretic. HEAD: Atraumatic. Normocephalic. EYES: Pupils equal and round and reactive. Extraocular motions intact. No scleral icterus. No injection or drainage. ENT: Hearing grossly normal. Throat without visible erythema, exudates, masses , or lesions. NECK: Trachea midline. Supple, nontender. CARDIOVASCULAR: Regular rate and rhythm without murmurs, gallops, or rubs. No JVD. Peripheral pulses symmetric. RESPIRATORY/CHEST: O22L, saturation 92% , diminished posterior bases Symmetric , unlabored respirations. GASTROINTESTINAL: Abdomen soft, non-tender, nondistended. Bowel sounds present. GENITOURINARY: Without palpable bladder distension. French catheter in place. MUSCULOSKELETAL: Extremities without clubbing, cyanosis, or edema. No joint tenderness or effusion noted. No calf tenderness. No mottling or clubbing. LYMPHATICS: No palpable cervical or supraclavicular adenopathy. NEUROLOGICAL: Awake and oriented to self and daughter. Follows commands, but responses weak. More cognitively engaged in the past PSYCHIATRIC: No overt anxiety or depression Diagnostic Tests Laboratory Laboratory Tests Test 09/17/16 09/18/16 09/20/16 13:00 19:57 08:26 Sodium Level 140 MEQ/L 141 MEQ/L 142 MEQ/L (136-145) (136-145) (136-145) Potassium Level 4.4 MEQ/L 4.8 MEQ/L 4.6 MEQ/L (3.5-5.1) (3.5-5.1) (3.5-5.1) Chloride Level 114 MEQ/L 115 MEQ/L 115 MEQ/L (98-107) (98-107) (98-107) Carbon Dioxide Level 17.2 MEQ/L 15.9 MEQ/L 17.9 MEQ/L (21.0-32.0) (21.0-32.0) (21.0-32.0) Anion Gap 9 MEQ/L (5-15) 10 MEQ/L (5-15) 9 MEQ/L (5-15) Blood Urea Nitrogen 47 MG/DL (7-18) 54 MG/DL (7-18) 50 MG/DL (7-18) Creatinine 3.25 MG/DL 3.16 MG/DL 3.10 MG/DL (0.50-1.00) (0.50-1.00) (0.50-1.00) Estimat Glomerular Filtration 17 ML/MIN (>89) 17 ML/MIN (>89) 18 ML/MIN (>89) Rate Random Glucose 153 MG/DL 112 MG/DL 99 MG/DL (74-106) (74-106) (74-106) Calcium Level 8.8 MG/DL 9.2 MG/DL 8.9 MG/DL (8.5-10.1) (8.5-10.1) (8.5-10.1) Result Diagram: 09/16/16 1202 09/20/16 4506 Assessment and Plan Disease Oriented Problem List: (1) CVA, old, cognitive deficits Comment: Functionally weak, needs moderate to maximum assistance with ADLs. (2) Malignant hypertension (arteriolar nephrosclerosis) Comment: Blood pressure more normalized. (3) Chronic kidney disease (CKD), stage IV (severe) Comment: New findings: Hematology consult by nephrology to investigated monoclonal gammopathy versus light chain deposits (4) Hijze-mo-oxwjsqj kidney injury Comment: stable Symptom Scale: (1) Pain 0-10 Scale: Unable to quantify Comment: History of back problems as well as leg pain. She is able to express that she is uncomfortable, able to reposition herself (2) Dyspnea 0-10 Scale: 5 Comment: Denies overt dyspnea at rest Pertinent Non-Medical Issues Psychosocial: Lives with daughter, would need 24-hour care Spiritual: [employer] [facility] would accept it Maintenance Services Dispatcher visit Legal: None identified Ethical issues impacting care: None identified Important Contacts Daughter Carmen Noel [phone]. Additional family Carmen (daughter) [phone] - living with this daughterbelieve she has paperwork indicating she is health care surrogate. She is listed as next of kin person to contact in the clinical record. She has been the primary caregiver. Leti (daughter) [phone] -lives across the street from her mother. Assists in her care. Germán (son/eldest) [phone] in [place] - felt to be the "boss" in the family Ed (son) [phone]- lives in [place] area Ray (son) [phone] - lives in [facility] are Tim (son) [phone] lives in [place], [place] Annia (daughter) - no available phone number lives in [place], [place] Tae (daughter). No available phone number - Carmen states would does want to be involved in process Scotty (son). No available phone number lives in [place], [place] Prognosis At this time Prognosis is fair. She has had CVA and TIAs , advancing chronic kidney disease stage IV and she has poorly controlled blood pressure, that at some future point may result in worsening kidney disease and or the eventuality of another stroke rendering her more debilitated than what she is. Code Status: Alternative Code (CPR - compressions, shock, ALCS drugs - NO chest compressions) Plan Decision Maker: Pending clarification Carmen (daughter) [phone] - states she has documentation showing she is health care surrogate. Will bring in documentation. IN the event this document is not produced, decisions will fall onto the majority of adult children. Code Status: CPR without intubation Family Discussion: Continue to educate lola Morales re: decision making. Discussed areas of invasive procedures, CPR, intubation or feeding tube in the future. Discussed quality of life vs quantity. Symptoms: Weakness, confusion Palliative care phone number provided - will follow during hospital stay. Attestation To help prompt me to consider important information that might be impacting today's encounter and assessment, information from prior notes written by myself or my colleagues may have been "brought forward" into today's note. My signature on this note, however, is an attestation that I personally performed the exam, history, and/or decision-making noted today, and, unless otherwise indicated, the interactions with patient, family, and staff as well as the review of records all occurred today. I also attest that the listed assessment and stated plan reflect my best clinical judgment today based on the combination of historical information, prior notes, and today's exam/ interactions. When time spent is documented, it refers only to time spent today by the signer, or if indicated, combined time spent today by collaborating physician/nurse practitioner. Jessica Lemus Sep 20, 2016 13:01
[2016-09-20] MEDS ORDERED: NIFEdipine 20 MG CAP PO ONE (13:30)
--- NOTE | 2016-09-20 15:52 | HHI.PR ---
Subjective Remarks Follow-up for shortness of breath, renal failure Shortness of breath stable, still desaturates, afebrile. No changes in mental status or neurologic deficits. Denies any fever or headache. Objective Vitals Vital Signs Date Time Temp Pulse Resp B/P Pulse Ox O2 Delivery O2 Flow Rate FiO2 09/20/16 14:00 150/72 09/20/16 12:49 96 Nasal Cannula 4.00 09/20/16 12:00 96.2 72 17 180/100 92 09/20/16 08:00 96.9 80 16 190/96 98 09/20/16 04:00 97.9 75 16 172/94 92 09/20/16 00:00 97.5 97 16 165/96 100 09/19/16 18:30 79 09/19/16 16:00 96.2 76 17 177/94 91 175/90 I/O 09/19/16 09/19/16 09/19/16 09/20/16 09/20/16 09/20/16 07:00 15:00 23:00 07:00 15:00 23:00 Intake Total 120 ml 240 ml 0 ml 360 ml 360 ml Balance 120 ml 240 ml 0 ml 360 ml 360 ml Intake Oral 120 ml 240 ml 0 ml 360 ml 360 ml # Voids 2 2 0 2 4 # Bowel Movements 1 0 0 Result Diagram: 09/16/16 1205 09/20/16 0826 Objective Remarks GENERAL: Well-developed well-nourished. In no acute distress. SKIN: Warm and dry. No lesions noted. HEENT: Normocephalic. Pupils equal and round. Mucous membranes pink and moist. CARDIOVASCULAR: Regular rate and rhythm. No murmur appreciated. RESPIRATORY: No accessory muscle use. Clear to auscultation. Breath sounds equal bilaterally. GASTROINTESTINAL: Abdomen soft, non-tender, nondistended. Bowel sounds x4. MUSCULOSKELETAL: No obvious deformities. No clubbing or cyanosis. No edema. NEUROLOGICAL: Awake and alert. No focal neurological deficits. Moves upper and lower extremities spontaneously. Normal speech. Slow mentation. Date of Insertion: Sep 14, 2016 Date of Removal: Sep 16, 2016 A/P Assessment and Plan 70-year-old female with history of hypertension, edema, CKD, weakness presents after falling out the bed last night 09/13. Generalized weakness/fatigue with encephalopathy: likely multifactorial secondary to UTI, hypertensive encephalopathy, dehydration, and recent fall. See treatment below. Head CT with old ischemic changes, no acute findings. Consult PT/OT/ST. Hypertensive Encephalopathy secondary to Accelerated HTN: BP 200/106 upon arrival. . Holding off on SHELL/ARB secondary to TRUDI/CKD. Monitor BP, continue Coreg, increase isradipine, increase hydralazine, extra dose today. UTI: UA with large leuks, many WBCs. S/p IV Rocephin x3days. Urine culture with no growth. Possible CHF Exacerbation: BNP elevated at 990. CXR with mild cardiomegaly, no acute findings. Trace BLE edema. Echo 09/06/15 showed normal systolic function EF 55-60%, mild MR, mild TR, mild to mod increased pulmonary arterial pressure. Hold diuresis for now, giving gentle hydration with IVF. Consulted patient's welder oxyhydrogen, appreciate input. Elevated Troponins: no complaints of chest pain.Trended enzymes are flat at 0.22 , 0.19, 0.19. EKG with no acute ST elevation/depression. Consulted cardiology. Monitor on telemetry. TRUDI on CKD, stage III: hypertensive renal disease. TRUDI secondary to dehydration with decreased recent oral intake. Given IVF, DC. Avoid nephrotoxins. No improvement, consulted nephrology, appreciate input. Follow up BMP. Consult hematology for MGUS versus LCD. Pulmonary Hypertension: seen on previous echo as above. Consulted pulmonology and cardiology, appreciate input. Follow-up Fall, Hip Pain: pt fell out of bed prior to arrival. CPK wnl. Hip/pelvis and femur xray negative for fracture. Patient needs rehabilitation, consult case management DVT Prophylaxis: heparin sq Palliative care consult. Discharge Planning Possible discharge tomorrow with oxygen Arin Campo MD Sep 20, 2016 15:52
--- NOTE | 2016-09-20 15:53 | HHI.FF ---
Face to Face Verification Diagnosis: (1) ARF (acute renal failure) (2) CVA, old, cognitive deficits Physical Therapy Order: Evaluate and Treat, Improve ambulation Home Health Nursing Order: Medical education Signs/symptoms of disease process Oxygen administration education Nursing assessment with vital signs I have seen patient Doris Noel on 09/20/16. My clinical findings support the need for the requested home health care services because: Ltd mobility - disease progression Patient has SOB Limited ability to care for self I certify that my clinical findings support that this patient is homebound because: Impaired cognitive ability/safety Unsteady gait/balance Unsafe to leave home unassisted Arin Campo MD Sep 20, 2016 15:53
[2016-09-20] MEDS ORDERED: OXYGENTANK NAS.CANULA (15:54)
[2016-09-20] MEDS: hydrALAZINE HCL 25 MG TAB PO SCH ×2 (16:45→21:43)
--- NOTE | 2016-09-20 18:30 | HHI.PR ---
Subjective Remarks 71 YOAA female with HTN,PHTN,mild sob Breathing better family at Denies CP Daughter would like to take her home Ambulating with Rt for 02 walk test Objective Vital Signs Vital Signs Date Time Temp Pulse Resp B/P Pulse Ox O2 Delivery O2 Flow Rate FiO2 09/20/16 16:48 4.00 09/20/16 16:00 96.5 73 17 148/78 94 09/20/16 14:00 150/72 09/20/16 12:49 96 Nasal Cannula 4.00 09/20/16 12:00 96.2 72 17 180/100 92 09/20/16 08:00 96.9 80 16 190/96 98 09/20/16 04:00 97.9 75 16 172/94 92 09/20/16 00:00 97.5 97 16 165/96 100 09/19/16 18:30 79 I/O 09/19/16 09/19/16 09/19/16 09/20/16 09/20/16 09/20/16 07:00 15:00 23:00 07:00 15:00 23:00 Intake Total 120 ml 240 ml 0 ml 360 ml 360 ml Balance 120 ml 240 ml 0 ml 360 ml 360 ml Intake Oral 120 ml 240 ml 0 ml 360 ml 360 ml # Voids 2 2 0 2 4 # Bowel Movements 1 0 0 Result Diagram: 09/16/16 1205 09/20/16825 Objective Remarks GENERAL: Elderly female,NAD SKIN: Warm and dry. HEAD: Normocephalic. EYES: No scleral icterus. No injection or drainage. NECK: Supple, trachea midline. No JVD or lymphadenopathy. CARDIOVASCULAR: Regular rate and rhythm without murmurs, gallops, or rubs. RESPIRATORY: Breath sounds equal bilaterally. No accessory muscle use. GASTROINTESTINAL: Abdomen soft, non-tender, nondistended. MUSCULOSKELETAL: No cyanosis, or edema. BACK: Nontender without obvious deformity. No CVA tenderness. A/P Assessment and Plan PHTN Uncontrolled HTN CVA H/O Fall PLAN DW family Check PFT Controll BP Encourage PO Will check RA sat after ambulation. Vern Castanon MD Sep 20, 2016 18:30
[2016-09-20 20:52] LABS: IMMUNOGLOBULIN A 149 MG/DL (90-497); IMMUNOGLOBULIN G 1680 MG/DL (650-1610)
[2016-09-20 21:40] LABS: IMMUNOGLOBULIN M 21 MG/DL (42-255)
[2016-09-21 00:11] VITALS: BP 139/77; PULSE 80; RESP 20; TEMP 97.6; O2SAT 96
[2016-09-21] MEDS: hydrALAZINE HCL 25 MG TAB PO SCH ×3 (04:56→21:41)
[2016-09-21 08:00] VITALS: BP 161/79; PULSE 70; RESP 18; TEMP 95.6; O2SAT 97
[2016-09-21] MEDS: ASPIRIN EC 81 MG TABEC PO SCH (09:10)
[2016-09-21] MEDS: SODIUM BICARBONATE 650 MG TAB PO SCH ×2 (09:10→21:42)
[2016-09-21] MEDS: CARVEDILOL 12.5 MG TAB PO SCH ×2 (09:10→21:42)
[2016-09-21] MEDS: HEPARIN SODIUM - SQ 10,000 UNITS/ML VIAL SQ SCH ×2 (09:10→21:44)
[2016-09-21] MEDS: NIFEdipine 90 MG SUSTAINED RELEASE TAB PO SCH (09:10)
[2016-09-21] MEDS: SODIUM CHLORIDE 0.9% FLUSH 5 ML FLUSH FLUSH SCH ×2 (09:11→21:44)
--- NOTE | 2016-09-21 09:58 | PD.ONC.PN ---
Subjective Subjective Remarks more alert then yesterday Objective Data Date Time Temp Pulse Resp B/P Pulse Ox O2 Delivery O2 Flow Rate FiO2 09/21/16 00:11 97.6 80 20 139/77 96 09/20/16 20:49 96.9 79 21 151/78 94 09/20/16 16:48 4.00 09/20/16 16:00 96.5 73 17 148/78 94 09/20/16 14:00 150/72 09/20/16 12:49 96 Nasal Cannula 4.00 09/20/16 12:00 96.2 72 17 180/100 92 09/21/16 09/21/16 09/21/16 07:00 15:00 23:00 Intake Total 280 ml Balance 280 ml Result Diagram: 09/20/16 0826 Laboratory Results Item Value Date Time Immunoglobulin G Total 1680 MG/DL H 09/20/16 0826 Immunoglobulin A 149 MG/DL 09/20/16 0826 Immunoglobulin M 21 MG/DL L 09/20/16 0826 Immunoglobulin G Total 2040 MG/DL H 05/22/10 1834 Immunoglobulin G Total 2000 MG/DL H 02/22/06 0425 Laboratory Tests Test 09/21/16 04:34 Carcinoembryonic Antigen 1.4 NG/ML CA 19-9 Antigen 12.0 U/ML Administered Medications Medications (Trade) Dose Ordered Sig/Lenora Route PRN Reason Start Time Stop Time Status Last Admin Dose Admin IV Flush (NS Flush) 2 ml UNSCH PRN FLUSH FLUSH AFTER USING IV ACCESS 09/14/16 09:30 09/19/16 01:49 IV Flush (NS Flush) 2 ml BID FLUSH 09/14/16 21:00 09/21/16 09:11 Heparin Sodium (Porcine) (Heparin Inj) 5,000 units Q12H SQ 09/14/16 10:00 09/21/16 09:10 Carvedilol (Coreg) 12.5 mg Q12HR PO 09/14/16 10:00 09/21/16 09:10 Acetaminophen (Tylenol) 650 mg Q4H PRN PO PAIN SCALE 1 TO 10 09/16/16 12:00 09/20/16 18:05 Sodium Bicarbonate (Sodium Bicarbonate) 650 mg Q12HR PO 09/16/16 21:00 09/21/16 09:10 Aspirin (Ecotrin Ec) 81 mg DAILY PO 09/18/16 13:00 09/21/16 09:10 Clonidine (Catapres) 0.1 mg Q6H PRN PO SBP> OR = 180, DBP> OR = 100 09/18/16 13:00 09/20/16 12:33 Nifedipine (Procardia Xl) 90 mg DAILY PO 09/21/16 09:00 09/21/16 09:10 Hydralazine HCl (Apresoline) 75 mg Q8HR PO 09/20/16 14:00 09/21/16 04:56 Objective Remarks GENERAL: weak, frail and older then stated age SKIN: Warm and dry. HEAD: Normocephalic. EYES: No scleral icterus. No injection or drainage. NECK: Supple, trachea midline. No JVD or lymphadenopathy. LYMPHATIC: No adenopathy. CARDIOVASCULAR: Regular rate and rhythm without murmurs. RESPIRATORY: Breath sounds equal bilaterally. No accessory muscle use. GASTROINTESTINAL: Abdomen soft, non-tender, nondistended. EXTREMITIES: trace edema MUSCULOSKELETAL: muscle wasting NEUROLOGICAL: generalized weakness and memory poor PSYCHIATRIC: Appropriate mood and affect; insight and judgment normal. 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 The IGG level has not changed over many years and light chain production modest. No lytic lesions on bone films. 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 Given her present comorbidities I would observe rather then do a bone marrow aspirate and bx. She is profoundly debilitated and would not tolerate treatment for myeloma which is not likely to be present. 2: pancreatic mass on ct of abdomen without contrast: marker studies normal. She would require an MRI with contrast (not safe due to renal failure) and or an endoscopic ultrasound to evaluate the ? pancreatic mass. She is not a candidate for treatment (surgery, radiation, chemotherapy) should she have a pancreatic cancer. Daughter is in agreement and this was discussed with her last evening and this morning. 3: At this point nothing further to add and recommend continued supportive care. Romel Mcconnell MD Sep 21, 2016 09:58
[2016-09-21 12:00] VITALS: BP 130/74; PULSE 65; RESP 24; TEMP 96.1; O2SAT 93
[2016-09-21] MEDS: RESP: ALBUTEROL 2.5 MG/IPRATROPIUM 0.5 MG NEB (PRN) NEB (12:26)
[2016-09-21 12:32] VITALS: O2SAT 90
[2016-09-21] MEDS ORDERED: NIFE90TA2 PO (14:05)
[2016-09-21] MEDS ORDERED: CARV12.5 PO (14:05)
[2016-09-21] MEDS ORDERED: SODI650T PO (14:05)
[2016-09-21] MEDS ORDERED: ASPI81TA11 PO (14:05)
[2016-09-21] MEDS ORDERED: HYDR25TA35 PO (14:05)
--- NOTE | 2016-09-21 15:27 | PD.CARD.PN ---
Subjective Subjective Remarks alert in nad Objective Vital Signs / I&O Vital Signs Date Time Temp Pulse Resp B/P Pulse Ox O2 Delivery O2 Flow Rate FiO2 09/21/16 12:32 90 Nasal Cannula 4.00 09/21/16 12:00 96.1 65 24 130/74 93 09/21/16 08:00 95.6 70 18 161/79 97 09/21/16 00:11 97.6 80 20 139/77 96 09/20/16 20:49 96.9 79 21 151/78 94 09/20/16 16:48 4.00 09/20/16 16:00 96.5 73 17 148/78 94 I/O 09/20/16 09/20/16 09/20/16 09/21/16 09/21/16 09/21/16 07:00 15:00 23:00 07:00 15:00 23:00 Intake Total 360 ml 360 ml 480 ml 280 ml Balance 360 ml 360 ml 480 ml 280 ml Intake Oral 360 ml 360 ml 480 ml 280 ml # Voids 2 4 3 2 # Bowel Movements 0 1 1 Physical Exam GENERAL: SKIN: Warm and dry. HEAD: Normocephalic. EYES: No scleral icterus. No injection or drainage. NECK: Supple, trachea midline. No JVD or lymphadenopathy. CARDIOVASCULAR: Regular rate and rhythm without murmurs, gallops, or rubs. RESPIRATORY: Breath sounds equal bilaterally. No accessory muscle use. GASTROINTESTINAL: Abdomen soft, non-tender, nondistended. MUSCULOSKELETAL: No cyanosis, or edema. BACK: Nontender without obvious deformity. No CVA tenderness. Laboratory Laboratory Tests Test 09/21/16 04:34 Carcinoembryonic Antigen 1.4 NG/ML CA 19-9 Antigen 12.0 U/ML Assessment and Plan Problem List: (1) Accelerated hypertension (2) Dehydration (3) ARF (acute renal failure) (4) Vejpc-kh-nrdnijy kidney injury Assessment and Plan 1.) HTN - improved on nifedipine 90 qd, coreg 12.5 bid, hydralazine 50 mg q8hrs Tonio Puente MD Sep 21, 2016 15:27
--- NOTE | 2016-09-21 15:46 | HHI.DS ---
Discharge Summary Admission Date Sep 14, 2016 at 09:28 Discharge Date: Sep 21, 2016 Admitting Diagnosis Uti, acute on chronic kidney injury, uncontrolled hypertension. (1) Accelerated hypertension ICD Code: I10 Procedures None Brief History - From Admission 70-year-old female with history of hypertension, edema, CKD, weakness presents after falling out the bed last night 09/13. The patient tried getting out of bed last night to use the restroom however fell from the bed. She was found this morning around 4am by family members. It is unknown how long she was on the floor. Per her daughters at bedside, the patient ran out of her medications 1 month ago and they have had trouble getting her into see her PCP Dr. Sparkle Maldonado. The family states when she was on the medications, she was more drowsy and slept a lot, however since she went off her medications, she has been more active over the past month. Now over the past 2 days, the patient has pretty much stayed in bed and slept, complained of being cold but no fevers. The family reports recent diarrhea approximately 2 weeks ago but it went away on its own. Denies any recent headache, lightheadedness, dizziness, unilateral numbness/weakness, chest pain, shortness of breath, or abdominal complaints. Denies any dysuria, suprapubic pain, increased urinary frequency/urgency. The patient did complain of right hip/leg pain upon arrival and was given IV morphine with relief however patient was quite drowsy throughout exam. CBC/BMP: 09/20/16 0826 Significant Findings Laboratory Tests Test 09/18/16 09/20/16 19:57 08:26 Chloride Level 115 MEQ/L 115 MEQ/L (98-107) (98-107) Carbon Dioxide Level 15.9 MEQ/L 17.9 MEQ/L (21.0-32.0) (21.0-32.0) Blood Urea Nitrogen 54 MG/DL (7-18) 50 MG/DL (7-18) Creatinine 3.16 MG/DL 3.10 MG/DL (0.50-1.00) (0.50-1.00) Estimat Glomerular Filtration 17 ML/MIN (>89) 18 ML/MIN (>89) Rate Random Glucose 112 MG/DL (74-106) Immunoglobulin G Total 1680 MG/DL (650-1610) Immunoglobulin M 21 MG/DL (42-255) PE at Discharge GENERAL: Well-developed well-nourished. In no acute distress. SKIN: Warm and dry. No lesions noted. HEENT: Normocephalic. Pupils equal and round. Mucous membranes pink and moist. CARDIOVASCULAR: Regular rate and rhythm. No murmur appreciated. RESPIRATORY: No accessory muscle use. Clear to auscultation. Breath sounds equal bilaterally. GASTROINTESTINAL: Abdomen soft, non-tender, nondistended. Bowel sounds x4. MUSCULOSKELETAL: No obvious deformities. No clubbing or cyanosis. No edema. NEUROLOGICAL: Awake and alert. No focal neurological deficits. Moves upper and lower extremities spontaneously. Normal speech. Slow mentation. Hospital Course This is a 70-year-old female with history of hypertension, edema, CKD, weakness presents after falling out the bed. Patient was frontal generalized weakness and fatigue with encephalopathy likely secondary to UTI in hypertensive encephalopathy. Head CT with old ischemic changes, no acute findings. For his hypertensive encephalopathy, patient was started on Coreg and hydralazine. Coreg and hydralazine were increased after a few days and blood pressure was uncontrolled. Norvasc was added. For his urinary tract infection, patient finished a course of ceftriaxone. Urine culture was negative. Patient had mild troponin elevation but remained flat, cardiology was consulted. Patient also acute renal failure on top of chronic kidney disease. Nephrology was consulted , patient was given fluids. She cleared by nephrology upon discharge to follow- up for 2 weeks. There was consideration for MGUS versus light chain disease. Hematology was consulted, doubt multiple myeloma. Physical therapy saw the patient, recommendation was for rehabilitation however patient and family including daughter Carmen were adamant about discharge home with home health care. Per Carmen, they can take care of the patient at home via the other daughter Leti. Patient will be discharged home with home health care in the care of patient's daughters. Pt Condition on Discharge: Good Discharge Disposition: Disch w/ Home Health Serv Discharge Time: > 30 minutes Discharge Instructions DIET: Follow Instructions for: Heart Healthy Diet Activities you can perform: Regular-No Restrictions Follow up Referrals: Nephrology - 2 Weeks Oncology - 1 Month PCP Follow-up - 1 Week Pulmonology - 1 Week New Medications: Oxygen tank (Oxygen tank) 1 Ea Tank 2 LITER ALISTAIR.CANULA CONTINUOUS Oxygen Concentrator Portable Gaseous 2 L/min via Nasal Cannula Continuous For 99 months HYPOXEMIA PREVENTION #[address] (Aspirin EC) 81 Mg Tabdr 81 MG PO DAILY CVA #30 TAB Carvedilol (Coreg) 12.5 Mg Tab 12.5 MG PO Q12HR CVA #60 TAB Hydralazine (Hydralazine) 25 Mg Tab 75 MG PO Q8HR CVA #90 TAB Nifedipine (Nifedipine ER) 90 Mg Tab 90 MG PO DAILY htn #30 TAB Sodium Bicarbonate (Sodium Bicarbonate) 650 Mg Tab 650 MG PO Q12HR stomach #60 TAB Arin Campo MD Sep 21, 2016 15:46
[2016-09-21 16:00] VITALS: BP 157/85; PULSE 63; RESP 20; TEMP 95.7; O2SAT 97
--- NOTE | 2016-09-21 17:35 | HHI.PR ---
Subjective Remarks 71 YOAA female with HTN,PHTN,mild sob Breathing better family at Denies CP Objective Vital Signs Vital Signs Date Time Temp Pulse Resp B/P Pulse Ox O2 Delivery O2 Flow Rate FiO2 09/21/16 16:00 95.7 63 20 157/85 97 09/21/16 12:32 90 Nasal Cannula 4.00 09/21/16 12:00 96.1 65 24 130/74 93 09/21/16 08:00 95.6 70 18 161/79 97 09/21/16 00:11 97.6 80 20 139/77 96 09/20/16 20:49 96.9 79 21 151/78 94 I/O 09/20/16 09/20/16 09/20/16 09/21/16 09/21/16 09/21/16 07:00 15:00 23:00 07:00 15:00 23:00 Intake Total 360 ml 360 ml 480 ml 280 ml 580 ml Balance 360 ml 360 ml 480 ml 280 ml 580 ml Intake Oral 360 ml 360 ml 480 ml 280 ml 580 ml IV Total 0 ml # Voids 2 4 3 2 2 # Bowel Movements 0 1 1 0 Result Diagram: 09/20/16 0826 Objective Remarks GENERAL: Elderly female,NAD SKIN: Warm and dry. HEAD: Normocephalic. EYES: No scleral icterus. No injection or drainage. NECK: Supple, trachea midline. No JVD or lymphadenopathy. CARDIOVASCULAR: Regular rate and rhythm without murmurs, gallops, or rubs. RESPIRATORY: Breath sounds equal bilaterally. No accessory muscle use. GASTROINTESTINAL: Abdomen soft, non-tender, nondistended. MUSCULOSKELETAL: No cyanosis, or edema. BACK: Nontender without obvious deformity. No CVA tenderness. A/P Assessment and Plan PHTN Uncontrolled HTN CVA H/O Fall PLAN DW family Check PFT Controll BP Encourage PO Will check RA sat after ambulation. DC plans underway Available prn Vern Castanon MD Sep 21, 2016 17:35
[2016-09-21 20:37] VITALS: BP 155/81; PULSE 82; RESP 17; TEMP 96.3; O2SAT 96
[2016-09-22] VITALS (7 sets, daily range): BP systolic 123–178; BP diastolic 56–96; PULSE 60–89; RESP 16–20; TEMP 96.4–97.6; O2SAT 92–99
[2016-09-22] MEDS: hydrALAZINE HCL 25 MG TAB PO SCH (06:36)
[2016-09-22] MEDS: NIFEdipine 90 MG SUSTAINED RELEASE TAB PO SCH (08:22)
[2016-09-22] MEDS: SODIUM CHLORIDE 0.9% FLUSH 5 ML FLUSH FLUSH SCH ×2 (08:22→21:00)
[2016-09-22] MEDS: ASPIRIN EC 81 MG TABEC PO SCH (08:22)
[2016-09-22] MEDS: CARVEDILOL 12.5 MG TAB PO SCH ×2 (08:22→22:52)
[2016-09-22] MEDS: SODIUM BICARBONATE 650 MG TAB PO SCH ×2 (08:22→22:51)
[2016-09-22] MEDS: HEPARIN SODIUM - SQ 10,000 UNITS/ML VIAL SQ SCH ×2 (08:23→22:52)
--- NOTE | 2016-09-22 11:02 | HHI.PR ---
Subjective Remarks Follow-up for hypertension and TIA Blood pressure is better, no headache, nausea or vomiting. Not short of breath. Objective Vitals Vital Signs Date Time Temp Pulse Resp B/P Pulse Ox O2 Delivery O2 Flow Rate FiO2 09/22/16 08:00 96.7 66 16 178/96 94 09/22/16 05:11 96.4 70 17 161/81 92 09/22/16 00:26 96.4 66 18 137/80 94 09/21/16 20:37 96.3 82 17 155/81 96 09/21/16 16:00 95.7 63 20 157/85 97 09/21/16 12:32 90 Nasal Cannula 4.00 09/21/16 12:00 96.1 65 24 130/74 93 I/O 09/21/16 09/21/16 09/21/16 09/22/16 09/22/16 09/22/16 07:00 15:00 23:00 07:00 15:00 23:00 Intake Total 280 ml 580 ml 480 ml 280 ml Balance 280 ml 580 ml 480 ml 280 ml Intake Oral 280 ml 580 ml 480 ml 280 ml IV Total 0 ml # Voids 2 2 3 2 # Bowel Movements 1 0 Result Diagram: 09/20/16 0826 Objective Remarks GENERAL: Well-developed well-nourished. In no acute distress. SKIN: Warm and dry. No lesions noted. HEENT: Normocephalic. Pupils equal and round. Mucous membranes pink and moist. CARDIOVASCULAR: Regular rate and rhythm. No murmur appreciated. RESPIRATORY: No accessory muscle use. Clear to auscultation. Breath sounds equal bilaterally. GASTROINTESTINAL: Abdomen soft, non-tender, nondistended. Bowel sounds x4. MUSCULOSKELETAL: No obvious deformities. No clubbing or cyanosis. No edema. NEUROLOGICAL: Awake and alert. No focal neurological deficits. Moves upper and lower extremities spontaneously. Normal speech. Slow mentation. Procedures None Date of Insertion: Sep 14, 2016 Date of Removal: Sep 16, 2016 A/P Problem List: (1) Accelerated hypertension ICD Code: I10 Status: Acute Assessment and Plan 70-year-old female with history of hypertension, edema, CKD, weakness presents after falling out the bed last night 09/13. Generalized weakness/fatigue with encephalopathy: likely multifactorial secondary to UTI, hypertensive encephalopathy, dehydration, and recent fall. See treatment below. Head CT with old ischemic changes, no acute findings. Consult PT/OT/ST. Hypertensive Encephalopathy secondary to Accelerated HTN: BP 200/106 upon arrival. . Holding off on SHELL/ARB secondary to TRUDI/CKD. Monitor BP, continue Coreg, nifedipine, increase hydralazine to 100 mg 3 times a day. UTI: UA with large leuks, many WBCs. S/p IV Rocephin x3days. Urine culture with no growth. Possible CHF Exacerbation: BNP elevated at 990. CXR with mild cardiomegaly, no acute findings. Trace BLE edema. Echo 09/06/15 showed normal systolic function EF 55-60%, mild MR, mild TR, mild to mod increased pulmonary arterial pressure. Hold diuresis for now, giving gentle hydration with IVF. Consulted patient's abatement worker, appreciate input. Elevated Troponins: no complaints of chest pain.Trended enzymes are flat at 0.22 , 0.19, 0.19. EKG with no acute ST elevation/depression. Consulted cardiology. Monitor on telemetry. TRUDI on CKD, stage III: hypertensive renal disease. TRUDI secondary to dehydration with decreased recent oral intake. Given IVF, DC. Avoid nephrotoxins. No improvement, consulted nephrology, appreciate input. Follow up BMP. Per hematology, unlikely multiple myeloma, monitor for now, follow-up as outpatient Pulmonary Hypertension: seen on previous echo as above. Consulted pulmonology and cardiology, appreciate input. Follow-up Fall, Hip Pain: pt fell out of bed prior to arrival. CPK wnl. Hip/pelvis and femur xray negative for fracture. Patient needs rehabilitation, consult case management DVT Prophylaxis: heparin sq Discussed with daughter Carmen again today. Discharge Planning Possible discharge tomorrow with oxygen Arin Campo MD Sep 22, 2016 11:02
[2016-09-22] MEDS ORDERED: HYDR-3801 PO (11:04)
[2016-09-22] MEDS: hydrALAZINE HCL 100 MG TAB PO SCH ×2 (14:55→22:52)
--- NOTE | 2016-09-22 15:13 | PD.CARD.PN ---
Subjective Subjective Remarks alert in nad Objective Vital Signs / I&O Vital Signs Date Time Temp Pulse Resp B/P Pulse Ox O2 Delivery O2 Flow Rate FiO2 09/22/16 12:00 96.6 60 19 127/63 93 09/22/16 08:00 96.7 66 16 178/96 94 09/22/16 05:11 96.4 70 17 161/81 92 09/22/16 00:26 96.4 66 18 137/80 94 09/21/16 20:37 96.3 82 17 155/81 96 09/21/16 16:00 95.7 63 20 157/85 97 I/O 09/21/16 09/21/16 09/21/16 09/22/16 09/22/16 09/22/16 07:00 15:00 23:00 07:00 15:00 23:00 Intake Total 280 ml 580 ml 480 ml 280 ml 240 ml Balance 280 ml 580 ml 480 ml 280 ml 240 ml Intake Oral 280 ml 580 ml 480 ml 280 ml 240 ml IV Total 0 ml # Voids 2 2 3 2 3 # Bowel Movements 1 0 0 Physical Exam GENERAL: SKIN: Warm and dry. HEAD: Normocephalic. EYES: No scleral icterus. No injection or drainage. NECK: Supple, trachea midline. No JVD or lymphadenopathy. CARDIOVASCULAR: Regular rate and rhythm without murmurs, gallops, or rubs. RESPIRATORY: Breath sounds equal bilaterally. No accessory muscle use. GASTROINTESTINAL: Abdomen soft, non-tender, nondistended. MUSCULOSKELETAL: No cyanosis, or edema. BACK: Nontender without obvious deformity. No CVA tenderness. Assessment and Plan Problem List: (1) Accelerated hypertension (2) Dehydration (3) ARF (acute renal failure) (4) [id number] kidney injury Assessment and Plan 1.) HTN - improved on nifedipine 90 qd, coreg 12.5 bid, hydralazine 50 mg q8hrs Tonio Puente MD Sep 22, 2016 15:12
--- NOTE | 2016-09-22 16:36 | HHI.NPPN ---
Subjective General Problems: Anemia, Hypertension Renal Failure: Chronic, Acute, Stage IV History of Present Illness 71-year-old female with a past medical history of hypertension and history of chronic kidney disease who came to the hospital because of history of fall from the bed. The patient was admitted on September 14 and I was called to see the patient because of elevated BUN and creatinine. The patient previously has a known history of chronic kidney disease although she is not seeing any family practice medical doctor on a regular basis. Her creatinine a year ago in August of 2015 was 2.1, and now she was admitted with a creatinine of 2.8. Additional Remarks Patient is alert, not eating well, no SOB. Review of Systems General Constitutional: Fatigue Cardiovascular Cardiac: VERGARA Objective Data Data 09/21/16 09/22/16 19:00 07:00 Intake Total 580 ml 760 ml Balance 580 ml 760 ml Intake Oral 580 ml 760 ml IV Total 0 ml # Voids 2 5 # Bowel Movements 0 Vital Signs Date Time Temp Pulse Resp B/P Pulse Ox O2 Delivery O2 Flow Rate FiO2 09/22/16 16:00 97.6 67 17 129/72 95 09/22/16 12:00 96.6 60 19 127/63 93 09/22/16 08:00 96.7 66 16 178/96 94 09/22/16 05:11 96.4 70 17 161/81 92 09/22/16 00:26 96.4 66 18 137/80 94 09/21/16 20:37 96.3 82 17 155/81 96 -: 09/20/16 0826 Physical Exam General Appearance: No Acute Distress, Comfortable Eyes Eye Exam: Pupils Equal Throat Throat Exam: Oral Mucosa [place] & Moist Neck Neck Exam: Neck Supple Pulmonary Resp Exam: No Distress, Rhonchi, Decreased Bases, Diminished Breath Sounds Cardiology CV Exam: Regular, Normal Sinus Rhythm Gastrointestinal/Abdomen GI Exam: Soft, Non-Tender, Bowel Sounds Present Extremeties Extremities Exam: No Edema Neurologic Neuro Exam: Alert, Awake Psychiatric Psych Exam: Appropriate Responses Assessment/Plan Assessment Summary: TRUDI/Acute Renal Failure, Anemia of CKD, Hypertension, CKD Stage IV Problem List: (1) Contusion, hip (2) UTI (urinary tract infection) (3) Dehydration (4) ARF (acute renal failure) (5) Accelerated hypertension (6) Kmpve-vd-[id number] kidney injury Plan Patient has been non oliguric. 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 [place] and Lambda are elevated. Possibly has MCGUS or LCD. cr 3.1 hematology input appreciated BM biopsy not planned due to comorbid condition Sanford Moreno MD Sep 22, 2016 16:36
[2016-09-22] MEDS: RESP: ALBUTEROL 2.5 MG/IPRATROPIUM 0.5 MG NEB (PRN) NEB (20:19)
[2016-09-23] MEDS: hydrALAZINE HCL 100 MG TAB PO SCH ×3 (05:08→20:15)
[2016-09-23 08:00] VITALS: BP 173/87; PULSE 73; RESP 18; TEMP 96.7; O2SAT 93
[2016-09-23 08:13] VITALS: O2SAT 92
[2016-09-23] MEDS: HEPARIN SODIUM - SQ 10,000 UNITS/ML VIAL SQ SCH ×2 (08:43→22:00)
[2016-09-23] MEDS: SODIUM BICARBONATE 650 MG TAB PO SCH ×2 (08:43→20:15)
[2016-09-23] MEDS: ASPIRIN EC 81 MG TABEC PO SCH (08:43)
[2016-09-23] MEDS: NIFEdipine 90 MG SUSTAINED RELEASE TAB PO SCH (08:43)
[2016-09-23] MEDS: CARVEDILOL 12.5 MG TAB PO SCH ×2 (08:43→20:15)
[2016-09-23] MEDS: SODIUM CHLORIDE 0.9% FLUSH 5 ML FLUSH FLUSH SCH ×2 (08:44→20:25)
--- NOTE | 2016-09-23 11:32 | HHI.PR ---
Subjective Remarks Follow-up for hypertension Blood pressure more controlled, no headache, nausea, vomiting or new neurologic deficits. Objective Vitals Vital Signs Date Time Temp Pulse Resp B/P Pulse Ox O2 Delivery O2 Flow Rate FiO2 09/23/16 08:13 92 Nasal Cannula 4.00 09/23/16 08:00 96.7 73 18 173/87 93 09/22/16 20:23 93 Nasal Cannula 4.00 09/22/16 20:00 96.5 70 20 170/87 92 09/22/16 16:00 97.6 67 17 129/72 95 09/22/16 12:00 96.6 60 19 127/63 93 I/O 09/22/16 09/22/16 09/22/16 09/23/16 09/23/16 09/23/16 07:00 15:00 23:00 07:00 15:00 23:00 Intake Total 280 ml 240 ml 240 ml Output Total 300 ml Balance 280 ml 240 ml -60 ml Intake Oral 280 ml 240 ml 240 ml IV Total 0 ml Output Urine Total 300 ml # Voids 2 3 # Bowel Movements 0 1 Result Diagram: 09/20/16 08 Objective Remarks GENERAL: Well-developed well-nourished. In no acute distress. SKIN: Warm and dry. No lesions noted. HEENT: Normocephalic. Pupils equal and round. Mucous membranes pink and moist. CARDIOVASCULAR: Regular rate and rhythm. No murmur appreciated. RESPIRATORY: No accessory muscle use. Clear to auscultation. Breath sounds equal bilaterally. GASTROINTESTINAL: Abdomen soft, non-tender, nondistended. Bowel sounds x4. MUSCULOSKELETAL: No obvious deformities. No clubbing or cyanosis. No edema. NEUROLOGICAL: Awake and alert. No focal neurological deficits. Moves upper and lower extremities spontaneously. Normal speech. Slow mentation. Procedures None Date of Insertion: Sep 14, 2016 Date of Removal: Sep 16, 2016 A/P Problem List: (1) Accelerated hypertension ICD Code: I10 Status: Acute Assessment and Plan 70-year-old female with history of hypertension, edema, CKD, weakness presents after falling out the bed last night 09/13. Generalized weakness/fatigue with encephalopathy: likely multifactorial secondary to UTI, hypertensive encephalopathy, dehydration, and recent fall. See treatment below. Head CT with old ischemic changes, no acute findings. Consult PT/OT/ST. Hypertensive Encephalopathy secondary to Accelerated HTN: BP 200/106 upon arrival. . Holding off on SHELL/ARB secondary to TRUDI/CKD. Monitor BP, continue Coreg, increase nifedipine, continue hydralazine to 100 mg 3 times a day. UTI: UA with large leuks, many WBCs. S/p IV Rocephin x3days. Urine culture with no growth. Possible CHF Exacerbation: BNP elevated at 990. CXR with mild cardiomegaly, no acute findings. Trace BLE edema. Echo 09/06/15 showed normal systolic function EF 55-60%, mild MR, mild TR, mild to mod increased pulmonary arterial pressure. Hold diuresis for now, giving gentle hydration with IVF. Consulted patient's farm advisor, appreciate input. Elevated Troponins: no complaints of chest pain.Trended enzymes are flat at 0.22 , 0.19, 0.19. EKG with no acute ST elevation/depression. Consulted cardiology. Monitor on telemetry. TRUDI on CKD, stage III: hypertensive renal disease. TRUDI secondary to dehydration with decreased recent oral intake. Given IVF, DC. Avoid nephrotoxins. No improvement, consulted nephrology, appreciate input. Follow up BMP. Per hematology, unlikely multiple myeloma, monitor for now, follow-up as outpatient Pulmonary Hypertension: seen on previous echo as above. Consulted pulmonology and cardiology, appreciate input. Follow-up Fall, Hip Pain: pt fell out of bed prior to arrival. CPK wnl. Hip/pelvis and femur xray negative for fracture. Patient needs rehabilitation, consult case management DVT Prophylaxis: heparin sq Discharge Planning Discharged when arrangements made Arin Campo MD Sep 23, 2016 11:32
[2016-09-23 12:00] VITALS: BP 141/78; PULSE 61; RESP 19; TEMP 96.7; O2SAT 92
--- NOTE | 2016-09-23 12:44 | PD.CARD.PN ---
Subjective Subjective Remarks alert in nad Objective Vital Signs / I&O Vital Signs Date Time Temp Pulse Resp B/P Pulse Ox O2 Delivery O2 Flow Rate FiO2 09/23/16 12:00 96.7 61 19 141/78 92 09/23/16 08:13 92 Nasal Cannula 4.00 09/23/16 08:00 96.7 73 18 173/87 93 09/22/16 20:23 93 Nasal Cannula 4.00 09/22/16 20:00 96.5 70 20 170/87 92 09/22/16 16:00 97.6 67 17 129/72 95 I/O 09/22/16 09/22/16 09/22/16 09/23/16 09/23/16 09/23/16 07:00 15:00 23:00 07:00 15:00 23:00 Intake Total 280 ml 240 ml 240 ml Output Total 300 ml Balance 280 ml 240 ml -60 ml Intake Oral 280 ml 240 ml 240 ml IV Total 0 ml Output Urine Total 300 ml # Voids 2 3 # Bowel Movements 0 1 Physical Exam GENERAL: SKIN: Warm and dry. HEAD: Normocephalic. EYES: No scleral icterus. No injection or drainage. NECK: Supple, trachea midline. No JVD or lymphadenopathy. CARDIOVASCULAR: Regular rate and rhythm without murmurs, gallops, or rubs. RESPIRATORY: Breath sounds equal bilaterally. No accessory muscle use. GASTROINTESTINAL: Abdomen soft, non-tender, nondistended. MUSCULOSKELETAL: No cyanosis, or edema. BACK: Nontender without obvious deformity. No CVA tenderness. Assessment and Plan Problem List: (1) Accelerated hypertension (2) Dehydration (3) ARF (acute renal failure) (4) [id number] kidney injury Assessment and Plan 1.) HTN - improved on nifedipine 90 qd, coreg 12.5 bid, hydralazine 50 mg q8hrs Tonio Puente MD Sep 23, 2016 12:44
[2016-09-23 16:00] VITALS: BP 130/76; PULSE 63; RESP 19; TEMP 97.1; O2SAT 94
--- NOTE | 2016-09-23 16:18 | HHI.NPPN ---
Subjective General Problems: Anemia, Hypertension Renal Failure: Chronic, Acute, Stage IV History of Present Illness 71-year-old female with a past medical history of hypertension and history of chronic kidney disease who came to the hospital because of history of fall from the bed. The patient was admitted on September 14 and I was called to see the patient because of elevated BUN and creatinine. The patient previously has a known history of chronic kidney disease although she is not seeing any sample taker operator on a regular basis. Her creatinine a year ago in August of 2015 was 2.1, and now she was admitted with a creatinine of 2.8. Additional Remarks Patient is alert, not eating well,c/o severe constipation Review of Systems General Constitutional: Fatigue Cardiovascular Cardiac: VERGARA Objective Data Data 09/22/16 09/23/16 19:00 07:00 Intake Total 240 ml 240 ml Output Total 300 ml Balance 240 ml -60 ml Intake Oral 240 ml 240 ml IV Total 0 ml Output Urine Total 300 ml # Voids 3 # Bowel Movements 0 1 Vital Signs Date Time Temp Pulse Resp B/P Pulse Ox O2 Delivery O2 Flow Rate FiO2 09/23/16 12:00 96.7 61 19 141/78 92 09/23/16 08:13 92 Nasal Cannula 4.00 09/23/16 08:00 96.7 73 18 173/87 93 09/22/16 20:23 93 Nasal Cannula 4.00 09/22/16 20:00 96.5 70 20 170/87 92 -: 09/20/16 0826 Physical Exam General Appearance: No Acute Distress, Comfortable Eyes Eye Exam: Pupils Equal Throat Throat Exam: Oral Mucosa [place] & Moist Neck Neck Exam: Neck Supple Pulmonary Resp Exam: No Distress, Rhonchi, Decreased Bases, Diminished Breath Sounds Cardiology CV Exam: Regular, Normal Sinus Rhythm Gastrointestinal/Abdomen GI Exam: Soft, Non-Tender, Bowel Sounds Present Extremeties Extremities Exam: No Edema Neurologic Neuro Exam: Alert, Awake Psychiatric Psych Exam: Appropriate Responses Assessment/Plan Assessment Summary: TRUDI/Acute Renal Failure, Anemia of CKD, Hypertension, CKD Stage IV Problem List: (1) Contusion, hip (2) UTI (urinary tract infection) (3) Dehydration (4) ARF (acute renal failure) (5) Accelerated hypertension (6) [id number] kidney injury Plan Patient has been non oliguric. 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 [place] and Lambda are elevated. Possibly has MCGUS or LCD. cr 3.1 hematology input appreciated BM biopsy not planned due to comorbid condition constipation Sorbitol 45 cc today and 30 cc daily ordered fu with Sanford Trejo MD Sep 23, 2016 16:18
[2016-09-23] MEDS ORDERED: SORBITOL 70% SOLN 30 ML CUP PO ONE (16:30)
[2016-09-23] MEDS: ACETAMINOPHEN 325 MG TAB PO PRN (17:05)
[2016-09-23 17:43] VITALS: O2SAT 92
[2016-09-23 20:00] VITALS: BP 154/88; PULSE 68; RESP 20; TEMP 96.1; O2SAT 92
[2016-09-23] MEDS: RESP: ALBUTEROL 2.5 MG/IPRATROPIUM 0.5 MG NEB (PRN) NEB (20:22)
[2016-09-24] VITALS (8 sets, daily range): BP systolic 118–188; BP diastolic 66–110; PULSE 52–87; RESP 17–20; TEMP 96.9–98; O2SAT 92–98
[2016-09-24] MEDS: RESP: ALBUTEROL 2.5 MG/IPRATROPIUM 0.5 MG NEB (PRN) NEB ×2 (01:39→13:00)
[2016-09-24] MEDS: hydrALAZINE HCL 100 MG TAB PO SCH ×3 (04:39→21:02)
[2016-09-24 06:21] LABS: BICARBONATE 18.7 MEQ/L (21.0-32.0); POTASSIUM 4.7 MEQ/L (3.5-5.1)
[2016-09-24] MEDS: SORBITOL 70% SOLN 30 ML CUP PO SCH (08:47)
[2016-09-24] MEDS: SODIUM BICARBONATE 650 MG TAB PO SCH ×2 (08:47→21:02)
[2016-09-24] MEDS: CARVEDILOL 12.5 MG TAB PO SCH ×2 (08:47→21:02)
[2016-09-24] MEDS: ASPIRIN EC 81 MG TABEC PO SCH (08:47)
[2016-09-24] MEDS: NIFEdipine 90 MG SUSTAINED RELEASE TAB PO SCH (08:47)
[2016-09-24] MEDS: HEPARIN SODIUM - SQ 10,000 UNITS/ML VIAL SQ SCH ×2 (08:47→21:03)
[2016-09-24] MEDS: SODIUM CHLORIDE 0.9% FLUSH 5 ML FLUSH FLUSH SCH ×2 (08:48→21:03)
--- NOTE | 2016-09-24 10:39 | HHI.NPPN ---
Subjective General Problems: Anemia, Hypertension Renal Failure: Chronic, Acute, Stage IV History of Present Illness 71-year-old female with a past medical history of hypertension and history of chronic kidney disease who came to the hospital because of history of fall from the bed. The patient was admitted on September 14 and I was called to see the patient because of elevated BUN and creatinine. 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 Her creatinine a year ago in August of 2015 was 2.1, and now she was admitted with a creatinine of 2.8. Additional Remarks Patient is alert, not eating well, not in distress. Review of Systems General Constitutional: Fatigue Cardiovascular Cardiac: VERGARA Objective Data Data 09/23/16 09/24/16 19:00 07:00 Intake Total 480 ml 240 ml Output Total 250 ml Balance 480 ml -10 ml Intake Oral 480 ml 240 ml Output Urine Total 250 ml # Voids 4 2 # Bowel Movements 0 1 Vital Signs Date Time Temp Pulse Resp B/P Pulse Ox O2 Delivery O2 Flow Rate FiO2 09/24/16 08:00 97.2 52 19 171/86 93 09/24/16 00:00 96.9 62 18 118/66 92 09/23/16 20:00 96.1 68 20 154/88 92 09/23/16 17:43 92 Nasal Cannula 4.00 09/23/16 16:00 97.1 63 19 130/76 94 09/23/16 12:00 96.7 61 19 141/78 92 -: 09/24/16 0530 Physical Exam General Appearance: No Acute Distress, Comfortable Eyes Eye Exam: Pupils Equal Throat Throat Exam: Oral Mucosa [place] & Moist Neck Neck Exam: Neck Supple Pulmonary Resp Exam: No Distress, Rhonchi, Decreased Bases, Diminished Breath Sounds Cardiology CV Exam: Regular, Normal Sinus Rhythm Gastrointestinal/Abdomen GI Exam: Soft, Non-Tender, Bowel Sounds Present Extremeties Extremities Exam: No Edema Neurologic Neuro Exam: Alert, Awake Psychiatric Psych Exam: Appropriate Responses Assessment/Plan Assessment Summary: TRUDI/Acute Renal Failure, Anemia of CKD, Hypertension, CKD Stage IV Problem List: (1) Contusion, hip (2) UTI (urinary tract infection) (3) Dehydration (4) ARF (acute renal failure) (5) Accelerated hypertension (6) [id number] kidney injury Plan Patient has been non oliguric. 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 [place] and Lambda are elevated. Possibly has MCGUS or LCD. Hematology input appreciated BM biopsy not planned due to comorbid condition, and stability of her disease. Also has suspected Pancreatic mass, recommended no further workup as she is not a candidate for any treatment. Creatinine increase slightly, need to encourage oral intake. Danie Sanchez MD Sep 24, 2016 10:39
--- NOTE | 2016-09-24 13:30 | HHI.PR ---
Subjective Remarks Follow-up for hypertension Blood pressure relatively stable, constipated. No headache, no new neurologic deficits. Objective Vitals Vital Signs Date Time Temp Pulse Resp B/P Pulse Ox O2 Delivery O2 Flow Rate FiO2 09/24/16 13:00 92 Nasal Cannula 4.00 09/24/16 12:00 97.1 73 20 167/98 94 09/24/16 08:00 97.2 52 19 171/86 93 09/24/16 00:00 96.9 62 18 118/66 92 09/23/16 20:00 96.1 68 20 154/88 92 09/23/16 17:43 92 Nasal Cannula 4.00 09/23/16 16:00 97.1 63 19 130/76 94 I/O 09/23/16 09/23/16 09/23/16 09/24/16 09/24/16 09/24/16 07:00 15:00 23:00 07:00 15:00 23:00 Intake Total 240 ml 480 ml 120 ml 120 ml Output Total 300 ml 250 ml Balance -60 ml 480 ml 120 ml -130 ml Intake Oral 240 ml 480 ml 120 ml 120 ml IV Total 0 ml Output Urine Total 300 ml 250 ml # Voids 4 2 # Bowel Movements 1 0 0 1 Result Diagram: 09/24/16 0530 Objective Remarks GENERAL: Well-developed well-nourished. In no acute distress. SKIN: Warm and dry. No lesions noted. HEENT: Normocephalic. Pupils equal and round. Mucous membranes pink and moist. CARDIOVASCULAR: Regular rate and rhythm. No murmur appreciated. RESPIRATORY: No accessory muscle use. Clear to auscultation. Breath sounds equal bilaterally. GASTROINTESTINAL: Abdomen soft, non-tender, nondistended. Bowel sounds x4. MUSCULOSKELETAL: No obvious deformities. No clubbing or cyanosis. No edema. NEUROLOGICAL: Awake and alert. No focal neurological deficits. Moves upper and lower extremities spontaneously. Normal speech. Slow mentation. Procedures None Date of Insertion: Sep 14, 2016 Date of Removal: Sep 16, 2016 A/P Problem List: (1) Accelerated hypertension ICD Code: I10 Status: Acute Assessment and Plan 70-year-old female with history of hypertension, edema, CKD, weakness presents after falling out the bed last night 09/13. Generalized weakness/fatigue with encephalopathy: likely multifactorial secondary to UTI, hypertensive encephalopathy, dehydration, and recent fall. See treatment below. Head CT with old ischemic changes, no acute findings. Consult PT/OT/ST. Hypertensive Encephalopathy secondary to Accelerated HTN: BP 200/106 upon arrival. . Holding off on SHELL/ARB secondary to TRUDI/CKD. Monitor BP, continue Coreg, continue nifedipine, continue hydralazine to 100 mg 3 times a day. UTI: UA with large leuks, many WBCs. S/p IV Rocephin x3days. Urine culture with no growth. Constipation-sorbitol. Possible CHF Exacerbation: BNP elevated at 990. CXR with mild cardiomegaly, no acute findings. Trace BLE edema. Echo 09/06/15 showed normal systolic function EF 55-60%, mild MR, mild TR, mild to mod increased pulmonary arterial pressure. 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 Elevated Troponins: no complaints of chest pain.Trended enzymes are flat at 0.22 , 0.19, 0.19. EKG with no acute ST elevation/depression. Consulted cardiology. Monitor on telemetry. TRUDI on CKD, stage III: hypertensive renal disease. TRUDI secondary to dehydration with decreased recent oral intake. Given IVF, DC. Avoid nephrotoxins. No improvement, consulted nephrology, appreciate input. Follow up BMP. Per hematology, unlikely multiple myeloma, defer bone biopsy for now given patient' s comorbidities, monitor for now, follow-up as outpatient Pulmonary Hypertension: seen on previous echo as above. Consulted pulmonology and cardiology, appreciate input. Follow-up as outpatient. Fall, Hip Pain: pt fell out of bed prior to arrival. CPK wnl. Hip/pelvis and femur xray negative for fracture. Patient needs rehabilitation, consult case management DVT Prophylaxis: heparin sq Discharge Planning Discharged once home health care arrangements made. Arin Campo MD Sep 24, 2016 13:30
--- NOTE | 2016-09-24 14:23 | PD.CARD.PN ---
Subjective Subjective Remarks asleep in nad Objective Vital Signs / I&O Vital Signs Date Time Temp Pulse Resp B/P Pulse Ox O2 Delivery O2 Flow Rate FiO2 09/24/16 13:00 92 Nasal Cannula 4.00 09/24/16 12:00 97.1 73 20 167/98 94 09/24/16 08:00 97.2 52 19 171/86 93 09/24/16 00:00 96.9 62 18 118/66 92 09/23/16 20:00 96.1 68 20 154/88 92 09/23/16 17:43 92 Nasal Cannula 4.00 09/23/16 16:00 97.1 63 19 130/76 94 I/O 09/23/16 09/23/16 09/23/16 09/24/16 09/24/16 09/24/16 07:00 15:00 23:00 07:00 15:00 23:00 Intake Total 240 ml 480 ml 120 ml 120 ml 480 ml Output Total 300 ml 250 ml Balance -60 ml 480 ml 120 ml -130 ml 480 ml Intake Oral 240 ml 480 ml 120 ml 120 ml 480 ml IV Total 0 ml Output Urine Total 300 ml 250 ml # Voids 4 2 2 # Bowel Movements 1 0 0 1 0 Physical Exam GENERAL: SKIN: Warm and dry. HEAD: Normocephalic. EYES: No scleral icterus. No injection or drainage. NECK: Supple, trachea midline. No JVD or lymphadenopathy. CARDIOVASCULAR: Regular rate and rhythm without murmurs, gallops, or rubs. RESPIRATORY: Breath sounds equal bilaterally. No accessory muscle use. GASTROINTESTINAL: Abdomen soft, non-tender, nondistended. MUSCULOSKELETAL: No cyanosis, or edema. BACK: Nontender without obvious deformity. No CVA tenderness. Laboratory Laboratory Tests Test 09/24/16 05:30 Sodium Level 143 MEQ/L Potassium Level 4.7 MEQ/L Chloride Level 113 MEQ/L Carbon Dioxide Level 18.7 MEQ/L Anion Gap 11 MEQ/L Blood Urea Nitrogen 58 MG/DL Creatinine 3.45 MG/DL Estimat Glomerular Filtration 16 ML/MIN Rate Random Glucose 107 MG/DL Calcium Level 9.4 MG/DL Assessment and Plan Problem List: (1) Accelerated hypertension (2) Dehydration (3) ARF (acute renal failure) (4) Kcvuh-nd-atbbdws kidney injury Assessment and Plan 1.) HTN - improved on nifedipine 90 qd, coreg 12.5 bid, hydralazine 50 mg q8hrs Tonio Puente MD Sep 24, 2016 14:23
--- NOTE | 2016-09-24 16:57 | HHI.PR ---
Subjective Remarks 71 YOAA female with HTN,PHTN,mild sob Breathing better family at Denies CP Home 02 arranged Objective Vital Signs Vital Signs Date Time Temp Pulse Resp B/P Pulse Ox O2 Delivery O2 Flow Rate FiO2 09/24/16 13:00 92 Nasal Cannula 4.00 09/24/16 12:00 97.1 73 20 167/98 94 09/24/16 08:00 97.2 52 19 171/86 93 09/24/16 00:00 96.9 62 18 118/66 92 09/23/16 20:00 96.1 68 20 154/88 92 09/23/16 17:43 92 Nasal Cannula 4.00 I/O 09/23/16 09/23/16 09/23/16 09/24/16 09/24/16 09/24/16 07:00 15:00 23:00 07:00 15:00 23:00 Intake Total 240 ml 480 ml 120 ml 120 ml 480 ml Output Total 300 ml 250 ml Balance -60 ml 480 ml 120 ml -130 ml 480 ml Intake Oral 240 ml 480 ml 120 ml 120 ml 480 ml IV Total 0 ml Output Urine Total 300 ml 250 ml # Voids 4 2 2 # Bowel Movements 1 0 0 1 0 Result Diagram: 09/24/16 0530 Objective Remarks GENERAL: Elderly female,NAD SKIN: Warm and dry. HEAD: Normocephalic. EYES: No scleral icterus. No injection or drainage. NECK: Supple, trachea midline. No JVD or lymphadenopathy. CARDIOVASCULAR: Regular rate and rhythm without murmurs, gallops, or rubs. RESPIRATORY: Breath sounds equal bilaterally. No accessory muscle use. GASTROINTESTINAL: Abdomen soft, non-tender, nondistended. MUSCULOSKELETAL: No cyanosis, or edema. BACK: Nontender without obvious deformity. No CVA tenderness. A/P Assessment and Plan PHTN Uncontrolled HTN CVA H/O Fall PLAN DW family Check PFT Controll BP Encourage PO Will check RA sat after ambulation. Home with home 02 Vern Castanon MD Sep 24, 2016 16:57
[2016-09-25] VITALS (11 sets, daily range): BP systolic 115–210; BP diastolic 67–108; PULSE 58–80; RESP 16–20; TEMP 96.5–98.6; O2SAT 92–96
[2016-09-25] MEDS: cloNIDine HCL 0.1 MG TAB PO PRN (04:09)
[2016-09-25] MEDS: hydrALAZINE HCL 100 MG TAB PO SCH ×2 (04:09→14:00)
[2016-09-25] MEDS: SORBITOL 70% SOLN 30 ML CUP PO SCH (09:00)
[2016-09-25] MEDS: ASPIRIN EC 81 MG TABEC PO SCH (09:09)
[2016-09-25] MEDS: NIFEdipine 90 MG SUSTAINED RELEASE TAB PO SCH (09:09)
[2016-09-25] MEDS: SODIUM BICARBONATE 650 MG TAB PO SCH ×2 (09:09→21:00)
[2016-09-25] MEDS: CARVEDILOL 12.5 MG TAB PO SCH (09:09)
[2016-09-25] MEDS: SODIUM CHLORIDE 0.9% FLUSH 5 ML FLUSH FLUSH SCH ×2 (09:10→21:00)
[2016-09-25] MEDS: HEPARIN SODIUM - SQ 10,000 UNITS/ML VIAL SQ SCH ×2 (09:19→23:08)
--- NOTE | 2016-09-25 09:53 | HHI.NPPN ---
Subjective General Problems: Anemia, Hypertension Renal Failure: Chronic, Acute, Stage IV History of Present Illness 71-year-old female with a past medical history of hypertension and history of chronic kidney disease who came to the hospital because of history of fall from the bed. The patient was admitted on September 14 and I was called to see the patient because of elevated BUN and creatinine. 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 Her creatinine a year ago in August of 2015 was 2.1, and now she was admitted with a creatinine of 2.8. Additional Remarks Patient is sleepy, not in distress, with nasal cannula, still not eating well. Review of Systems General Constitutional: Fatigue Cardiovascular Cardiac: VERGARA Objective Data Data 09/24/16 09/25/16 19:00 07:00 Intake Total 480 ml 240 ml Balance 480 ml 240 ml Intake Oral 480 ml 240 ml # Voids 2 3 # Bowel Movements 0 0 Vital Signs Date Time Temp Pulse Resp B/P Pulse Ox O2 Delivery O2 Flow Rate FiO2 09/25/16 08:00 96.5 77 19 194/100 96 09/25/16 05:24 178/88 09/25/16 04:00 98.4 80 20 210/108 95 09/25/16 00:00 97.8 79 18 172/88 95 09/24/16 22:20 98 Nasal Cannula 4.00 09/24/16 20:57 93 Nasal Cannula 4.00 09/24/16 20:00 98.0 87 20 188/110 93 09/24/16 16:30 166/72 09/24/16 16:00 96.9 86 17 92 09/24/16 13:00 92 Nasal Cannula 4.00 09/24/16 12:00 97.1 73 20 167/98 94 -: 09/24/16 0530 Physical Exam General Appearance: No Acute Distress, Comfortable Eyes Eye Exam: Pupils Equal Throat Throat Exam: Oral Mucosa [place] & Moist Neck Neck Exam: Neck Supple Pulmonary Resp Exam: No Distress, Rhonchi, Decreased Bases, Diminished Breath Sounds Cardiology CV Exam: Regular, Normal Sinus Rhythm Gastrointestinal/Abdomen GI Exam: Soft, Non-Tender, Bowel Sounds Present Extremeties Extremities Exam: No Edema Neurologic Neuro Exam: Alert, Awake Psychiatric Psych Exam: Appropriate Responses Assessment/Plan Assessment Summary: TRUDI/Acute Renal Failure, Anemia of CKD, Hypertension, CKD Stage IV Problem List: (1) Contusion, hip (2) UTI (urinary tract infection) (3) Dehydration (4) ARF (acute renal failure) (5) Accelerated hypertension (6) Dnckb-tv-aztsewz kidney injury Plan Patient has been non oliguric. Has chronic kidney disease, possibly related to Hypertensive renal disease, Hematology input appreciated BM biopsy not planned due to comorbid condition, and stability of her disease. Also has suspected Pancreatic mass, recommended no further workup as she is not a candidate for any treatment. No new BMP done, encourage oral intake. Danie Sanchez MD Sep 25, 2016 09:53
[2016-09-25 11:18] LABS: AUTOMATED NEUTROPHIL # 2.2 TH/MM3 (1.8-7.7); BASOPHIL # 0.1 TH/MM3 (0-0.2); BASOPHIL % 1.5 % (0.0-2.0); EOSINOPHIL # 0.1 TH/MM3 (0-0.4); EOSINOPHIL % 2.3 % (0.0-4.0); HEMATOCRIT 26.7 % (35.0-46.0); LYMPH % 41.9 % (9.0-44.0); MEAN CELL VOLUME 87.4 FL (80.0-100.0); MEAN CORPUSCULAR HGB CONC 33.2 % (32.0-36.0); MONO % 9.7 % (0.0-8.0); NEUT % 44.6 % (16.0-70.0); PLATELET COUNT 282 TH/MM3 (150-450); RED BLOOD COUNT 3.06 MIL/MM3 (4.00-5.30); RED CELL DISTRIBUTION WIDTH 14.1 % (11.6-17.2); WHITE BLOOD COUNT 4.8 TH/MM3 (4.0-11.0)
[2016-09-25 11:19] LABS: HEMO FLAGS AUTO DIFF
[2016-09-25 11:22] LABS: I-STAT POTASSIUM 4.5 MMOL/L (3.5-4.9)
[2016-09-25 11:26] LABS: APTT (PATIENT) 29.2 SEC (24.3-30.1); INTERNATIONAL NORMALIZED RATIO 1.1 RATIO; PROTHROMBIN TIME - PATIENT 12.5 SEC (9.8-11.6)
--- NOTE | 2016-09-25 11:43 | RADRPT ---
EXAM DATE/TIME: 09/25/2016 11:24 [facility] COMPARISON: CT BRAIN W/O CONTRAST, September 15, 2016, 16:49. INDICATIONS : Possible right facial drrop RADIATION DOSE: 40.77 CTDIvol (mGy) This report was called by Dr. Weeks to Dr. Pyle at 11: 40 AM. MEDICAL HISTORY : Cerebrovascular disease. Cardiovascular disease Hypertension. SURGICAL HISTORY : None. ENCOUNTER: Initial ACUITY: 1 day PAIN SCALE: Non-responsive LOCATION: cranial TECHNIQUE: Multiple contiguous axial images were obtained of the head. Using automated exposure control and adj ustment of the mA and/or kV according to patient size, radiation dose was kept as low as reasonably a chievable to obtain optimal diagnostic quality images. FINDINGS: CEREBRUM: There is generalized atrophy. Ventricles are normal in size. There is moderate to severe periventricu lar white matter low-attenuation bilaterally not significantly changed from the prior study. No evide nce of midline shift, mass lesion, hemorrhage or acute infarction. No extra-axial fluid collections are seen. POSTERIOR FOSSA: The cerebellum and brainstem demonstrate no acute finding. The 4th ventricle is midline. The cerebe llopontine angle is unremarkable. EXTRACRANIAL: Visualized sinuses are clear. SKULL: The calvaria is intact. No evidence of skull fracture. CONCLUSION: 1. Stable noncontrast head CT. No acute intracranial abnormality is identified. 2. Chronic changes include generalized atrophy and moderate severity periventricular white matter low -attenuation characteristic of chronic microvascular ischemia. Sanket Weeks MD on September 25, 2016 at 11:35 Board Certified Radiologist. This report was verified electronically.
[2016-09-25 11:49] LABS: OVALOCYTES 1+ (NORMAL)
[2016-09-25 11:50] LABS: SCAN/DIFF AUTO DIFF CONFIRMED
--- NOTE | 2016-09-25 12:32 | PD.CARD.PN ---
Subjective Subjective Remarks straoke alert called this am, patient lethargic and in nad Objective Vital Signs / I&O Vital Signs Date Time Temp Pulse Resp B/P Pulse Ox O2 Delivery O2 Flow Rate FiO2 09/25/16 10:59 96.8 61 16 120/67 94 09/25/16 09:30 Nasal Cannula 4.00 09/25/16 08:00 96.5 77 19 194/100 96 09/25/16 05:24 178/88 09/25/16 04:00 98.4 80 20 210/108 95 09/25/16 00:00 97.8 79 18 172/88 95 09/24/16 22:20 98 Nasal Cannula 4.00 09/24/16 20:57 93 Nasal Cannula 4.00 09/24/16 20:00 98.0 87 20 188/110 93 09/24/16 16:30 166/72 09/24/16 16:00 96.9 86 17 92 09/24/16 13:00 92 Nasal Cannula 4.00 I/O 09/24/16 09/24/16 09/24/16 09/25/16 09/25/16 09/25/16 07:00 15:00 23:00 07:00 15:00 23:00 Intake Total 120 ml 480 ml 120 ml 120 ml Output Total 250 ml Balance -130 ml 480 ml 120 ml 120 ml Intake Oral 120 ml 480 ml 120 ml 120 ml Output Urine Total 250 ml # Voids 2 1 2 # Bowel Movements 1 0 0 0 Physical Exam GENERAL: SKIN: Warm and dry. HEAD: Normocephalic. EYES: No scleral icterus. No injection or drainage. NECK: Supple, trachea midline. No JVD or lymphadenopathy. CARDIOVASCULAR: Regular rate and rhythm without murmurs, gallops, or rubs. RESPIRATORY: Breath sounds equal bilaterally. No accessory muscle use. GASTROINTESTINAL: Abdomen soft, non-tender, nondistended. MUSCULOSKELETAL: No cyanosis, or edema. BACK: Nontender without obvious deformity. No CVA tenderness. Laboratory Laboratory Tests Test 09/25/16 11:00 White Blood Count 4.8 TH/MM3 Red Blood Count 3.06 MIL/MM3 Hemoglobin 8.9 GM/DL Bedside Hemoglobin 8.8 G/DL Hematocrit 26.7 % Bedside Hematocrit 26.0 % Mean Corpuscular Volume 87.4 FL Mean Corpuscular Hemoglobin 29.0 PG Mean Corpuscular Hemoglobin 33.2 % Concent Red Cell Distribution Width 14.1 % Platelet Count 282 TH/MM3 Mean Platelet Volume 8.4 FL Neutrophils (%) (Auto) 44.6 % Lymphocytes (%) (Auto) 41.9 % Monocytes (%) (Auto) 9.7 % Eosinophils (%) (Auto) 2.3 % Basophils (%) (Auto) 1.5 % Neutrophils # (Auto) 2.2 TH/MM3 Lymphocytes # (Auto) 2.0 TH/MM3 Monocytes # (Auto) 0.5 TH/MM3 Eosinophils # (Auto) 0.1 TH/MM3 Basophils # (Auto) 0.1 TH/MM3 CBC Comment AUTO DIFF Differential Comment AUTO DIFF CONFIRMED Ovalocytes 1+ Prothrombin Time 12.5 SEC Prothromb Time International 1.1 RATIO Ratio Activated Partial 29.2 SEC Thromboplast Time Fibrinogen 266 mg/dL Bedside Sodium 146 MMOL/L Bedside Potassium 4.5 MMOL/L Bedside Chloride 117 MMOL/L Bedside Blood Urea Nitrogen 48 MG/DL Bedside Creatinine 3.5 MG/DL Bedside Glucose 92 MG/DL Total Creatine Kinase 52 U/L Troponin I 0.14 NG/ML Blood Type A POSITIVE Antibody Screen NEGATIVE Blood Bank Comment Assessment and Plan Problem List: (1) Accelerated hypertension (2) Dehydration (3) ARF (acute renal failure) (4) Pcdhz-[id number] kidney injury Assessment and Plan 1.) HTN - improved on nifedipine 90 qd, coreg 12.5 bid, hydralazine 50 mg q8hrs , but still having intermittent spikes, rec f/u neuro imaging and neuro recommendations Tonio Puente MD Sep 25, 2016 12:32
[2016-09-25] MEDS: SODIUM CHLOR 0.9% 1000 ML INJ 1,000 ML IV SCH (12:38)
--- NOTE | 2016-09-25 12:53 | HHI.PR ---
Subjective Remarks Follow-up hypertensive encephalopathy. I was called by RN secondary to Stroke alert on this patient with acute onset of right facial droop, difficulty swallowing and altered mental status. BP elevated overnight. Now, is lethargic but easily arousable answering questions appropriately with slurred speech and right facial droop. She has chronic left-sided weakness secondary to history of CVA. She denies headache or dizziness. According to her daughter , she has been having right facial droop for several days now because of medications, patient not on benzo or narcotic. Discussed with neurology Objective Vitals Vital Signs Date Time Temp Pulse Resp B/P Pulse Ox O2 Delivery O2 Flow Rate FiO2 09/25/16 12:00 98.6 62 16 123/67 96 09/25/16 10:59 96.8 61 16 120/67 94 09/25/16 09:30 Nasal Cannula 4.00 09/25/16 08:00 96.5 77 19 194/100 96 09/25/16 05:24 178/88 09/25/16 04:00 98.4 80 20 210/108 95 09/25/16 00:00 97.8 79 18 172/88 95 09/24/16 22:20 98 Nasal Cannula 4.00 09/24/16 20:57 93 Nasal Cannula 4.00 09/24/16 20:00 98.0 87 20 188/110 93 09/24/16 16:30 166/72 09/24/16 16:00 96.9 86 17 92 09/24/16 13:00 92 Nasal Cannula 4.00 I/O 09/24/16 09/24/16 09/24/16 09/25/16 09/25/16 09/25/16 07:00 15:00 23:00 07:00 15:00 23:00 Intake Total 120 ml 480 ml 120 ml 120 ml Output Total 250 ml Balance -130 ml 480 ml 120 ml 120 ml Intake Oral 120 ml 480 ml 120 ml 120 ml Output Urine Total 250 ml # Voids 2 1 2 # Bowel Movements 1 0 0 0 Result Diagram: 09/25/16 1100 09/24/16 0530 Imaging Last Impressions Head CT 09/25/16 0000 Signed Impressions: Service Date/Time: Sunday, September 25, 2016 11:24 - CONCLUSION: 1. Stable noncontrast head CT. No acute intracranial abnormality is identified. 2. Chronic changes include generalized atrophy and moderate severity periventricular white matter low-attenuation characteristic of chronic microvascular ischemia. Sanket Weeks MD Chest X-Ray 09/18/16 Signed Impressions: Service Date/Time: Sunday, September 18, 2016 22:55 - CONCLUSION: 1. Bilateral mostly basilar airspace disease with cardiomegaly. Differential diagnosis includes mild edema and atelectasis/consolidation. Riky Elmore MD Hip and Pelvis X-Ray 09/14/16633 Signed Impressions: Service Date/Time: Wednesday, September 14, 2016 07:09 - CONCLUSION: Osteopenia. No acute abnormality. Fito Diaz Jr., MD Femur X-Ray 09/14/16633 Signed Impressions: Service Date/Time: Wednesday, September 14, 2016 07:12 - CONCLUSION: No acute abnormality. Fito Diaz Jr., MD Renal Ultrasound 09/14/16 Signed Impressions: Service Date/Time: Wednesday, September 14, 2016 10:20 - CONCLUSION: 1. Increased echogenicity of the renal parenchyma. This is usually associated with chronic medical renal disease. 2. Mild hydronephrosis of the left collecting system. 3. Benign appearing left renal cysts. 4. Possible nonobstructing right kidney stone. Recommend noncontrast CT abdomen as clinically indicated. Elías Mares MD Abdomen/Pelvis CT 09/14/16 Signed Impressions: Service Date/Time: Wednesday, September 14, 2016 19:43 - CONCLUSION: 1. No stones , hydronephrosis or other acute abnormalities seen of the kidneys. 2. Suspected mass of the pancreatic head. Further attempted characterization with a nonemergent contrast enhanced study is recommended, preferably abdomen MRI. 3. Severe chronic vascular disease. 4. Mild airspace opacities of both visualized lung bases. 5. Panchamber enlargement of the heart and coronary artery calcification. Sanket Marinelli MD Objective Remarks GENERAL: Well-developed well-nourished. In no acute distress. SKIN: Warm and dry. No lesions noted. HEENT: Normocephalic. Pupils equal and round. Mucous membranes pink and moist. CARDIOVASCULAR: Regular rate and rhythm. No murmur appreciated. RESPIRATORY: No accessory muscle use. Clear to auscultation. Breath sounds equal bilaterally. GASTROINTESTINAL: Abdomen soft, non-tender, nondistended. Bowel sounds x4. MUSCULOSKELETAL: No obvious deformities. No clubbing or cyanosis. No edema. NEUROLOGICAL: Lethargic but easily arousable answering questions appropriately oriented to person and place. Following simple commands. Right facial droop and left upper extremity pronator drift. Bilateral lower extremities also weak able to raise against gravity slightly. She has slight slurred speech Procedures None Date of Insertion: Sep 14, 2016 Date of Removal: Sep 16, 2016 A/P Problem List: (1) Accelerated hypertension ICD Code: I10 Status: Acute Assessment and Plan 70-year-old female with history of hypertension, edema, CKD, weakness presents after falling out the bed last night 09/13. Stroke alert. TIA versus CVA. Permissive hypertension. Obtain MRI, carotid ultrasound, consult neurology, PT/OT/ST. Continue aspirin. Neurochecks. Echocardiogram EF of 60% Generalized weakness/fatigue with encephalopathy: likely multifactorial secondary to UTI, hypertensive encephalopathy, dehydration, and recent fall. See treatment below. Head CT with old ischemic changes, no acute findings. Consult PT/OT/ST. Hypertensive Encephalopathy secondary to Accelerated HTN: BP 200/106 upon arrival. . Holding off on SHELL/ARB secondary to TRUDI/CKD. Monitor BP, continue Coreg, continue nifedipine, continue hydralazine to 100 mg 3 times a day. Because of stroke alert, BP meds on hold for next 24 hours UTI: UA with large leuks, many WBCs. S/p IV Rocephin x3days. Urine culture with no growth. Constipation-sorbitol. Possible CHF Exacerbation: BNP elevated at 990. CXR with mild cardiomegaly, no acute findings. Trace BLE edema. Echo 09/06/15 showed normal systolic function EF 55-60%, mild MR, mild TR, mild to mod increased pulmonary arterial pressure. Consulted patient's paper roller, appreciate input. Elevated Troponins: no complaints of chest pain.Trended enzymes are flat at 0.22 , 0.19, 0.19. EKG with no acute ST elevation/depression. Consulted cardiology. Monitor on telemetry. TRUDI on CKD, stage III: hypertensive renal disease. TRUDI secondary to dehydration with decreased recent oral intake. Given IVF, DC. Avoid nephrotoxins. No improvement, consulted nephrology, appreciate input. Follow up BMP. Per hematology, unlikely multiple myeloma, defer bone biopsy for now given patient' s comorbidities, monitor for now, follow-up as outpatient Pancreatic mass on ct of abdomen without contrast: marker studies normal. MRI with contrast (not safe due to renal failure) and or an endoscopic ultrasound to evaluate the ? pancreatic mass. She is not a candidate for treatment ( surgery, radiation, chemotherapy) should she have a pancreatic cancer. Discussed with the family per oncology Pulmonary Hypertension: seen on previous echo as above. Consulted pulmonology and cardiology, appreciate input. Follow-up as outpatient. Fall, Hip Pain: pt fell out of bed prior to arrival. CPK wnl. Hip/pelvis and femur xray negative for fracture. Patient needs rehabilitation, consult case management DVT Prophylaxis: heparin sq Discharge Planning Not stable for discharge. Patient refused SNF Dwain Louis MD Sep 25, 2016 12:53
--- NOTE | 2016-09-25 15:14 | EKG ---
Date Performed: 09/25/2016 Time Performed: 11:05:38 PTAGE: 71 years EKG: Sinus rhythm SEPTAL MYOCARDIAL INFARCTION , PROBABLY OLD T-WAVE ABNORMALITY, CONSIDER LATERAL ISCHEMIA ABNORMAL E CG PREVIOUS TRACING : 09/14/2016 12.36 Compared to previous tracing, lateral T wave inversion is n ow much less pronounced, Twave inversion in lead V3 has resolved. DOCTOR: Tone Lopez Interpretating Date/Time 09/25/2016 15:13:03
--- NOTE | 2016-09-25 16:06 | HHI.HCPN ---
Reason for visit a. To assist with evaluation and management of symptoms including: dysphagia , weakness, confusion b. To assist medical decision maker(s) with: better understanding of current medical conditions; weighing benefits/burdens of medical treatment options; making medical treatment decisions. . Subjective/Interval History Ms. Noel is a 71 year old female admitted on 09/14/16 for management of UTI, acute on chronic kidney injury and uncontrolled hypertension. Hypertension has improved on Nifedipine 90mg daily, Coreg 12.5 mg BID and Hydralazine 100mg PO q8 hours. BP was elevated overnight-work increased to 25 mg every 12 hours. A stroke alert was called on the patient this morning secondary to acute onset right facial droop and changes in mental status. CT head showed chronic changes including generalized atrophy and moderate severity periventricular white matter low attenuation characteristic of chronic microvascular ischemia. Patient seen at 11:30AM. Patient is lethargic, NAD observed. She opens her eyes to verbal stimuli., but does not respond verbally to questions. Significant right sided facial droop is observed. She follows some simple commands. Patient squeezes my hands bilaterally on command. Patient has residual left-sided weakness secondary to history of CVA. No family members are present. Per notes, the patient's daughter (Carmen) has been unable to produce documentation designating her as the HCS. Per [place] statutes, in the absence of written advanced directives healthcare proxy decision making falls to the majority of the patient's 9 children. Attempted to contact patient's daughter, Carmen, to discuss medical treatment decision-making. She was working and unavailable, awaiting return phone call. . Family/friend interactions Attempted to contact the patient's daughter, Carmen, to discuss healthcare proxy the decision making. She was working and unavailable at that time, awaiting return phone call. . Advance Directives Advance Directive Specifics Health Care Surrogate(s): Carmen (daughter) [phone] has been patient's primary caregiver and states she is designated as the patients HCS but has been unable to locate the documentation. Per [place] statutes in the absence of written advanced directives healthcare proxy decision making would fall to the majority of the patient's 9 adult children. Patient's sons, Yousif and Tim, have opted out the role of healthcare proxy decision maker. . Objective Vital Signs Date Time Temp Pulse Resp B/P Pulse Ox O2 Delivery O2 Flow Rate FiO2 09/25/16 12:00 98.6 62 16 123/67 96 09/25/16 10:59 96.8 61 16 120/67 94 09/25/16 09:30 Nasal Cannula 4.00 09/25/16 08:00 96.5 77 19 194/100 96 09/25/16 05:24 178/88 09/25/16 04:00 98.4 80 20 210/108 95 09/25/16 00:00 97.8 79 18 172/88 95 09/24/16 22:20 98 Nasal Cannula 4.00 09/24/16 20:57 93 Nasal Cannula 4.00 09/24/16 20:00 98.0 87 20 188/110 93 09/24/16 16:30 166/72 09/24/16 16:00 96.9 86 17 92 Intake & Output 09/25/16 09/25/16 07:00 19:00 Intake Total 240 ml 42 ml Balance 240 ml 42 ml Intake Oral 240 ml 0 ml IV Total 42 ml # Voids 3 3 # Bowel Movements 0 3 . Physical Exam CONSTITUTIONAL/GENERAL: Patient is a 71-year-old female status post stroke alert this morning. TUBES/LINES/DRAINS: French catheter, nasal cannula, IV lines SKIN: No jaundice, rashes, or lesions. Skin temperature appropriate. Not diaphoretic. HEAD: Atraumatic. Normocephalic. EYES: Pupils equal and round and reactive. E No scleral icterus. No injection or drainage. ENT: Hearing grossly normal. NECK: Trachea midline. Supple, nontender. CARDIOVASCULAR: Regular rate and rhythm without murmurs, gallops, or rubs. No JVD. Peripheral pulses symmetric. RESPIRATORY/CHEST: Symmetric, unlabored respirations. Breath sounds diminished diminished in bases bilaterally. GASTROINTESTINAL: Abdomen soft, non-tender, nondistended. Bowel sounds present. GENITOURINARY: Without palpable bladder distension. French catheter in place. MUSCULOSKELETAL: Extremities without clubbing, cyanosis, or edema. No mottling or clubbing. LYMPHATICS: No palpable cervical or supraclavicular adenopathy. NEUROLOGICAL: Lethargic. She opens her eyes to verbal stimuli, but does not respond verbally to questions. Significant right sided facial droop is observed. She follows some simple commands.. PSYCHIATRIC: No overt anxiety or depression . Diagnostic Tests Laboratory Laboratory Tests Test 3/6/17 3/7/17 05:30 11:00 Sodium Level 143 MEQ/L (136-145) Potassium Level 4.7 MEQ/L (3.5-5.1) Chloride Level 113 MEQ/L (98-107) Carbon Dioxide Level 18.7 MEQ/L (21.0-32.0) Anion Gap 11 MEQ/L (5-15) Blood Urea Nitrogen 58 MG/DL (7-18) Creatinine 3.45 MG/DL (0.50-1.00) Estimat Glomerular Filtration 16 ML/MIN (>89) Rate Random Glucose 107 MG/DL (74-106) Calcium Level 9.4 MG/DL (8.5-10.1) White Blood Count 4.8 TH/MM3 (4.0-11.0) Red Blood Count 3.06 MIL/MM3 (4.00-5.30) Hemoglobin 8.9 GM/DL (11.6-15.3) Bedside Hemoglobin 8.8 G/DL (12.0-17.0) Hematocrit 26.7 % (35.0-46.0) Bedside Hematocrit 26.0 % (38.0-51.0) Mean Corpuscular Volume 87.4 FL (80.0-100.0) Mean Corpuscular Hemoglobin 29.0 PG (27.0-34.0) Mean Corpuscular Hemoglobin 33.2 % Concent (32.0-36.0) Red Cell Distribution Width 14.1 % (11.6-17.2) Platelet Count 282 TH/MM3 (150-450) Mean Platelet Volume 8.4 FL (7.0-11.0) Neutrophils (%) (Auto) 44.6 % (16.0-70.0) Lymphocytes (%) (Auto) 41.9 % (9.0-44.0) Monocytes (%) (Auto) 9.7 % (0.0-8.0) Eosinophils (%) (Auto) 2.3 % (0.0-4.0) Basophils (%) (Auto) 1.5 % (0.0-2.0) Neutrophils # (Auto) 2.2 TH/MM3 (1.8-7.7) Lymphocytes # (Auto) 2.0 TH/MM3 (1.0-4.8) Monocytes # (Auto) 0.5 TH/MM3 (0-0.9) Eosinophils # (Auto) 0.1 TH/MM3 (0-0.4) Basophils # (Auto) 0.1 TH/MM3 (0-0.2) CBC Comment AUTO DIFF Differential Comment AUTO DIFF CONFIRMED Ovalocytes 1+ (NORMAL) Prothrombin Time 12.5 SEC (9.8-11.6) Prothromb Time International 1.1 RATIO Ratio Activated Partial 29.2 SEC Thromboplast Time (24.3-30.1) Fibrinogen 266 mg/dL (181-393) Bedside Sodium 146 MMOL/L (138-146) Bedside Potassium 4.5 MMOL/L (3.5-4.9) Bedside Chloride 117 MMOL/L (98-109) Bedside Blood Urea Nitrogen 48 MG/DL (8-26) Bedside Creatinine 3.5 MG/DL (0.6-1.0) Bedside Glucose 92 MG/DL (60-95) Total Creatine Kinase 52 U/L (26-192) Troponin I 0.14 NG/ML (0.02-0.05) Blood Type A POSITIVE Antibody Screen NEGATIVE Blood Bank Comment . Result Diagram: 09/25/16 1100 09/24/16 0530 Imaging Last [address] 09/25/16 0000 Signed Impressions: Service Date/Time: Sunday, September 25, 2016 11:24 - CONCLUSION: 1. Stable noncontrast head CT. No acute intracranial abnormality is identified. 2. Chronic changes include generalized atrophy and moderate severity periventricular white matter low-attenuation characteristic of chronic microvascular ischemia. Sanket Weeks MD . Assessment and Plan Disease Oriented Problem List: (1) CVA, old, cognitive deficits Comment: Functionally weak, needs moderate to maximum assistance with ADLs. (2) Malignant hypertension (arteriolar nephrosclerosis) Comment: Blood pressure elevated overnight. Coreg dose increased to 25 mg PO q 12 hours today - 09/25/16. (3) Chronic kidney disease (CKD), stage IV (severe) Comment: New findings: Hematology consult by nephrology to investigated monoclonal gammopathy versus light chain deposits (4) [id number] kidney injury Comment: 09/24/16: Creatinine increased to 3.45, previously 3.16 on 09/18/16. . Symptom Scale: (1) Pain 0-10 Scale: Unable to quantify Comment: History of back problems as well as leg pain. 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 Additional family Carmen (daughter) [phone] - living with this daughterbelieve she has paperwork indicating she is health care surrogate. She is listed as next of kin person to contact in the clinical record. She has been the primary caregiver. Leti (daughter) [phone] -lives across the street from her mother. Assists in her care. Germán (son/eldest) [phone] in [place] - felt to be the "boss" in the family Donnie (son) [phone]- lives in [facility] Yousif (son) [phone] - lives in [facility] are Tim (son) [phone] lives in [place], [place] [facility] (daughter) - no available phone number lives in [place], [place] Tae (daughter). No available phone number - Carmen states would does want to be involved in process Scotty (son). No available phone number lives in [place], [place] Prognosis At this time Prognosis is fair. She has had CVA and TIAs , advancing chronic kidney disease stage IV and she has poorly controlled blood pressure, that at some future point may result in worsening kidney disease and or the eventuality of another stroke rendering her more debilitated than what she is. Code Status: Alternative Code (CPR - compressions, shock, ALCS drugs - NO chest compressions) Plan = ALTERNATE CODE - NO INTUBATION = Decision Maker: Pending clarification Carmen (daughter) [phone] - documentation designating patient's daughter has not been found at this point in time. Per [place] statutes, in the absence of written advanced directives healthcare proxy decision making will fall to the majority of the patient's 9 adult children. = Attempting to contact patient's children to determine who wishes to be involved in healthcare proxy decision making. Patient's sons, Yousif and Tim , have opted out of health care proxy decision-making. = A stroke alert was called on the patient this morning secondary to acute onset right facial droop and changes in mental status. CT head showed chronic changes including generalized atrophy and moderate severity periventricular white matter low attenuation characteristic of chronic microvascular ischemia. = Symptom management-dysphagia: Patient developed s/s dysphagia this am, a stroke alert was subsequently called. Speech therapy was consulted for a swallow evaluation-patient will remain NPO at this time. . Attestation To help prompt me to consider important information that might be impacting today's encounter and assessment, information from prior notes written by myself or my colleagues may have been "brought forward" into today's note. My signature on this note, however, is an attestation that I personally performed the exam, history, and/or decision-making noted today, and, unless otherwise indicated, the interactions with patient, family, and staff as well as the review of records all occurred today. I also attest that the listed assessment and stated plan reflect my best clinical judgment today based on the combination of historical information, prior notes, and today's exam/ interactions. When time spent is documented, it refers only to time spent today by the signer, or if indicated, combined time spent today by collaborating physician/nurse practitioner. . Tammy Martinez Sep 25, 2016 16:06
--- NOTE | 2016-09-25 16:22 | RADRPT ---
EXAM DATE/TIME: 09/25/2016 15:01 [facility] COMPARISON: CT BRAIN W/O CONTRAST, September 25, 2016, 11:24. INDICATIONS : Right sided facial droop. MEDICAL HISTORY : Hypertension. Renal insufficiency, chronic. SURGICAL HISTORY : Tubal ligation. ENCOUNTER: Initial ACUITY: 2 day PAIN SCORE: Nonresponsive. LOCATION: head TECHNIQUE: Multiplanar, multisequence MRI of the brain was performed without contrast. FINDINGS: There is severe artifact due to patient movement. Multiple attempts were made to repeat examinations and instruct the patient without success. CEREBRUM: There is moderate to severe generalized atrophy. Ventricles are normal in size. No evidence of midlin e shift, mass lesion, or hemorrhage. No extraaxial fluid collections are seen. The pituitary gland and suprasellar cistern are normal in configuration. WHITE MATTER: There is severe periventricular white matter signal change POSTERIOR FOSSA: The cerebellum and brainstem demonstrate no acute finding. There are multiple punctate foci of suscep tibility in the brain stem. The 4th ventricle is midline. The cerebellopontine angle is unremarkable . The cerebellar tonsils are normal in position. DIFFUSION IMAGING: There is a punctate 3 mm area of increased diffusion signal in the right parietal subcortical white m atter. No definite associated decreased ADC signal is seen. EXTRACRANIAL: Surrounding structures demonstrate no definite abnormality. CONCLUSION: 1. Examination is severely degraded by motion artifact. 2. There is a punctate area of suspected restricted diffusion in the right parietal subcortical white matter in the mid convexity. This may represent a focal area of ischemia. 3. Background severe periventricular and subcortical white matter signal change characteristic of chr onic microvascular ischemia. Sanket Weeks MD on September 25, 2016 at 15:37 Board Certified Radiologist. This report was verified electronically.
--- NOTE | 2016-09-25 16:25 | MB ---
cc: HI BRAVO MD DATE OF CONSULTATION 09/25/2016 REASON FOR CONSULTATION Stroke alert. HISTORY OF PRESENT ILLNESS Ms. Noel is a 70-year-old -[place] female with past medical history of hypertension, CKD, history of stroke with residual right-sided weakness, as per daughter who was at the bedside. She states that she had four strokes all affected her right side. At baseline the patient is mildly demented as per the daughter. She does not know the days, the dates, the months. She sleeps most of the day and she wakes up at night. She does have slurred speech and occasional confusional state, with difficulty in walking and uses a walker at her baseline. She presented initially to the hospital on 09/13/2016 after falling out of bed. She also was found to be with high blood pressure and diagnosed initially with hypertensive encephalopathy and she is noncompliant to her medication. A stroke alert was called today for a possible acute onset of, what is witnessed by the nurse as, acute onset of right facial droop, difficulty swallowing and altered mental status. Blood pressure was elevated overnight to 210/108 (this reading was 4 a.m.) however, this morning around 10:59 and 12:00 p.m. the reading was 120/67 and 123/67, consecutively. During the encounter the patient was awake, alert, oriented to place, person, not time (her baseline). Her daughter was at the bedside. There is a right facial droop (chronic). Mild slurring of speech as per daughter is also chronic, a right-sided spastic weakness (residual) and as per daughter the patient is at her baseline. The patient denies headache, double vision, dizziness. No reported seizure activity. A stat CT scan was reported as stable with no acute intracranial abnormality but with chronic changes, generalized atrophy and moderate severe periventricular white matter low attenuation characteristic of chronic microvascular ischemia. The patient is deemed not a candidate for IV TPA because of rapid resolution of symptoms to baseline. The patient is not on a blood thinner. REVIEW OF SYSTEMS 12-point review of systems is negative except for what is stated in the HPI. PAST MEDICAL HISTORY 1. Hypertension. 2. Chronic kidney disease. 3. 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 PAST SURGICAL HISTORY 1. Tubal ligation. 2. Cardiac catheterization. 3. Lower extremity vascular procedure. ALLERGIES No known allergies. FAMILY HISTORY Noncontributory. SOCIAL HISTORY Denies tobacco, alcohol or illicit drug abuse. PHYSICAL EXAMINATION GENERAL: Patient not in acute distress. She is awake, alert at baseline of slurring of speech without dentures and right-sided droopy face. HEENT: Intact hearing. Intact vision. No carotid bruit. No signs of meningeal irritation. NECK: Supple. No carotid bruit. CARDIOVASCULAR: Regular rate and rhythm. LUNGS: Clear to auscultation. No wheezes. MUSCULOSKELETAL: Spastic right-sided weakness with mild contracture of the right foot. NEUROLOGICAL: Awake, alert, oriented to time, place, not to person. Slurred speech / baseline. Pupils are equally reacting to light. No intact external ocular motility. Right facial droop / chronic, right upper and lower extremity spastic, hyperreflexic grade 4+ shoulder abduction, wrist extension and elbow extension. 4 right hip flexion and 4- right foot dorsiflexion. Left upper and lower extremity 5- throughout. Reflexes 2+ with finger flexion and right upper extremity, 3+ right lower extremity. Left upper and lower extremity 2+. Plantars are bilaterally downgoing. Intact sensation bilateral symmetrical. PSYCHIATRIC: Normal mood and behavior. LABORATORY DATA White blood cell 5.7, hemoglobin 10.7, MCV 87.5, platelet count 211. INR 1.0. potassium 4, anion gap 9, BUN 46, creatinine 2.82, AST 22, ALT 24, albumin 3.4. DIAGNOSTIC IMAGING - Head CT scan on 09/25/[address] scan with no acute intracranial abnormalities. Chronic changes include generalized atrophy and moderate severity periventricular white matter low attenuation characteristic of a chronic microvascular ischemia. DIAGNOSTIC IMPRESSION 1. Transient ischemic attack. 2. Recrudescence of remote stroke symptoms. 3. Possible watershed ischemic stroke due to the drop of blood pressure. 4. Encephalopathy, resolving related to hypertensive encephalopathy and UTI. PLAN - Neurological checks one hourly. - Aspirin 325 mg daily. - Allow permissive hypertension. Treat for blood pressure greater than 220/120 for the next 24 hours. - MRI brain. - Physical and occupational therapy recommendations are appreciated. - Swallow test. - DVT prophylaxis, SCDs. - GI prophylaxis. Thank you for the opportunity to participate in the care of your patient. MD ANGELA Baez/KK /1:56 PM /3:56 PM MTDAramis
[2016-09-25 17:02] LABS: HEMOGLOBIN A1b 0.9 %; HEMOGLOBIN Ao 83.8 %; HEMOGLOBIN F 1.2 %; HEMOGLOBIN LA1C 2.2 %; HEMOGLOBIN P3 6.2 %
--- NOTE | 2016-09-25 18:38 | HHI.PR ---
Subjective Remarks 71 YOAA female with HTN,PHTN,mild sob Breathing better family at lethargic with facial droop Stroke alert activated, seen by Neuro Objective Vital Signs Vital Signs Date Time Temp Pulse Resp B/P Pulse Ox O2 Delivery O2 Flow Rate FiO2 09/25/16 18:01 94 Nasal Cannula 4.00 09/25/16 17:20 97.0 68 18 139/76 92 09/25/16 16:00 97.8 58 18 115/72 94 09/25/16 12:00 98.6 62 16 123/67 96 09/25/16 10:59 96.8 61 16 120/67 94 09/25/16 09:30 Nasal Cannula 4.00 09/25/16 08:00 96.5 77 19 194/100 96 09/25/16 05:24 178/88 09/25/16 04:00 98.4 80 20 210/108 95 09/25/16 00:00 97.8 79 18 172/88 95 09/24/16 22:20 98 Nasal Cannula 4.00 09/24/16 20:57 93 Nasal Cannula 4.00 09/24/16 20:00 98.0 87 20 188/110 93 I/O 09/24/16 09/24/16 09/24/16 09/25/16 09/25/16 09/25/16 07:00 15:00 23:00 07:00 15:00 23:00 Intake Total 120 ml 480 ml 120 ml 120 ml 42 ml Output Total 250 ml Balance -130 ml 480 ml 120 ml 120 ml 42 ml Intake Oral 120 ml 480 ml 120 ml 120 ml 0 ml IV Total 42 ml Output Urine Total 250 ml # Voids 2 1 2 3 # Bowel Movements 1 0 0 0 3 Result Diagram: 09/25/16 1100 09/24/16 0530 Objective Remarks GENERAL: Elderly female,NAD SKIN: Warm and dry. HEAD: Normocephalic. EYES: No scleral icterus. No injection or drainage. NECK: Supple, trachea midline. No JVD or lymphadenopathy. CARDIOVASCULAR: Regular rate and rhythm without murmurs, gallops, or rubs. RESPIRATORY: Breath sounds equal bilaterally. No accessory muscle use. GASTROINTESTINAL: Abdomen soft, non-tender, nondistended. MUSCULOSKELETAL: No cyanosis, or edema. BACK: Nontender without obvious deformity. No CVA tenderness. A/P Assessment and Plan PHTN Uncontrolled HTN CVA H/O Fall PLAN DW family Encourage PO Neuro PANG underway Vern Castanon MD Sep 25, 2016 18:38
[2016-09-25] MEDS ORDERED: CARVEDILOL 12.5 MG TAB PO SCH (21:00)
--- NOTE | 2016-09-25 23:58 | RADRPT ---
EXAM DATE/TIME: 09/25/2016 22:39 [facility] COMPARISON: No previous studies available for comparison. INDICATIONS : Transient ischemic attack. MEDICAL HISTORY : Stroke. Hypertension. Gout. SURGICAL HISTORY : Tubal ligation. Cardiac cath. Surgery left leg for circulation. ENCOUNTER: Initial ACUITY: 1 day PAIN SCORE: Nonresponsive. LOCATION: Bilateral neck PEAK SYSTOLIC VELOCITIES (cm/sec): ICA/CCA RATIO: Right: 1.3 Left: 1.8 ICA: Right: 87 Left: 151 CCA: Right: 68 Left: 84 ECA: Right: 132 Left: 130 VERTEBRAL: Right: 21 antegrade Left: 65 antegrade Elevated flow velocities and ICA/CCA ratios have been found to correlate with increased degrees of vessel stenosis, calculated as percentage of diameter relative to a normal segment of distal ICA/CCA FINDINGS: RIGHT CAROTID: Calcified atherosclerotic plaquing in the right carotid bulb extending into the bifurcation. The wav eforms are within normal limits. LEFT CAROTID: Calcified atherosclerotic plaquing in the left carotid bulb extending into the bifurcation. The wave forms are within normal limits. VERTEBRAL ARTERIES: Antegrade flow is seen in both vertebral arteries. MISCELLANEOUS: None. CONCLUSION: 1. Calcified atherosclerotic plaquing in both carotid bulbs extending into the bifurcations. 2. Doppler velocities and ratios suggest a less than 50% stenosis in the left internal carotid. 3. No significant stenosis on the right. Antegrade flow in both vertebral arteries. Charlie Babb MD on September 25, 2016 at 23:53 Board Certified Radiologist. This report was verified electronically.
[2016-09-26] VITALS (7 sets, daily range): BP systolic 161–220; BP diastolic 86–120; PULSE 66–86; RESP 17–20; TEMP 96.4–98.7; O2SAT 92–96
[2016-09-26] MEDS: SODIUM CHLOR 0.9% 1000 ML INJ 1,000 ML IV SCH ×3 (05:12→20:49)
[2016-09-26] MEDS ORDERED: KETOROLAC TROMETHAMINE 30 MG/ML (IVP) VIAL IV PUSH ONE (05:15)
[2016-09-26 06:40] LABS: BICARBONATE 17.8 MEQ/L (21.0-32.0); HDL CHOLESTEROL 51.3 MG/DL (40.0-60.0); POTASSIUM 4.1 MEQ/L (3.5-5.1)
[2016-09-26] MEDS: SODIUM BICARBONATE 650 MG TAB PO SCH ×2 (09:00→20:48)
[2016-09-26] MEDS: ASPIRIN EC 81 MG TABEC PO SCH (09:00)
[2016-09-26] MEDS: SODIUM CHLORIDE 0.9% FLUSH 5 ML FLUSH FLUSH SCH ×2 (09:00→20:50)
[2016-09-26] MEDS: SORBITOL 70% SOLN 30 ML CUP PO SCH (09:00)
[2016-09-26] MEDS: HEPARIN SODIUM - SQ 10,000 UNITS/ML VIAL SQ SCH ×2 (09:08→20:49)
--- NOTE | 2016-09-26 11:59 | HHI.PR ---
Subjective Remarks Follow-up encephalopathy. Remains lethargic with slurred speech. Complains of left-sided weakness which is chronic. She did not pass swallowing evaluation today. Discussed with RN Objective Vitals Vital Signs Date Time Temp Pulse Resp B/P Pulse Ox O2 Delivery O2 Flow Rate FiO2 09/26/16 09:15 Nasal Cannula 3.00 09/26/16 09:03 94 Nasal Cannula 3.00 09/26/16 08:00 98.7 86 19 193/101 93 09/26/16 04:00 96.4 79 20 197/95 92 09/26/16 00:00 98.6 83 18 161/86 94 09/25/16 23:07 92 Nasal Cannula 2.00 Humidified 09/25/16 20:33 79 09/25/16 20:00 97.3 78 20 171/90 92 09/25/16 18:01 94 Nasal Cannula 4.00 09/25/16 17:20 97.0 68 18 139/76 92 09/25/16 16:00 97.8 58 18 115/72 94 09/25/16 12:00 98.6 62 16 123/67 96 I/O 09/25/16 09/25/16 09/25/16 09/26/16 09/26/16 09/26/16 07:00 15:00 23:00 07:00 15:00 23:00 Intake Total 120 ml 42 ml 0 ml 1367 ml Balance 120 ml 42 ml 0 ml 1367 ml Intake Oral 120 ml 0 ml 0 ml 0 ml IV Total 42 ml 1367 ml # Voids 2 3 1 3 # Bowel Movements 0 3 0 0 Result Diagram: 09/25/16 1100 09/26/16 0515 Imaging Last Impressions Head CT 09/25/16 0000 Signed Impressions: Service Date/Time: Sunday, September 25, 2016 11:24 - CONCLUSION: 1. Stable noncontrast head CT. No acute intracranial abnormality is identified. 2. Chronic changes include generalized atrophy and moderate severity periventricular white matter low-attenuation characteristic of chronic microvascular ischemia. Sanket Weeks MD Carotid Artery Ultrasound 09/25/16 0000 Signed Impressions: Service Date/Time: Sunday, September 25, 2016 22:39 - CONCLUSION: 1. Calcified atherosclerotic plaquing in both carotid bulbs extending into the bifurcations. 2. Doppler velocities and ratios suggest a less than 50%% stenosis in the left internal carotid. 3. No significant stenosis on the right. Antegrade flow in both vertebral arteries. Charlie Babb MD Brain MRI 09/25/16 Signed Impressions: Service Date/Time: Sunday, September 25, 2016 15:01 - CONCLUSION: 1. Examination is severely degraded by motion artifact. 2. There is a punctate area of suspected restricted diffusion in the right parietal subcortical white matter in the mid convexity. This may represent a focal area of ischemia. 3. Background severe periventricular and subcortical white matter signal change characteristic of chronic microvascular ischemia. Sanket Weeks MD Chest X-Ray 09/18/16 Signed Impressions: Service Date/Time: Sunday, September 18, 2016 22:55 - CONCLUSION: 1. Bilateral mostly basilar airspace disease with cardiomegaly. Differential diagnosis includes mild edema and atelectasis/consolidation. Riky Elmore MD Hip and Pelvis X-Ray 09/14/16633 Signed Impressions: Service Date/Time: Wednesday, September 14, 2016 07:09 - CONCLUSION: Osteopenia. No acute abnormality. Fito Diaz Jr., MD Femur X-Ray 09/14/16 0634 Signed Impressions: Service Date/Time: Wednesday, September 14, 2016 07:12 - CONCLUSION: No acute abnormality. Fito Diaz Jr., MD Renal Ultrasound 09/14/16 Signed Impressions: Service Date/Time: Wednesday, September 14, 2016 10:20 - CONCLUSION: 1. Increased echogenicity of the renal parenchyma. This is usually associated with chronic medical renal disease. 2. Mild hydronephrosis of the left collecting system. 3. Benign appearing left renal cysts. 4. Possible nonobstructing right kidney stone. Recommend noncontrast CT abdomen as clinically indicated. Elías Mares MD Abdomen/Pelvis CT 09/14/16 Signed Impressions: Service Date/Time: Wednesday, September 14, 2016 19:43 - CONCLUSION: 1. No stones , hydronephrosis or other acute abnormalities seen of the kidneys. 2. Suspected mass of the pancreatic head. Further attempted characterization with a nonemergent contrast enhanced study is recommended, preferably abdomen MRI. 3. Severe chronic vascular disease. 4. Mild airspace opacities of both visualized lung bases. 5. Panchamber enlargement of the heart and coronary artery calcification. Sanket Marinelli MD Objective Remarks GENERAL: Well-developed well-nourished. In no acute distress. SKIN: Warm and dry. No lesions noted. HEENT: Normocephalic. Pupils equal and round. Mucous membranes pink and moist. CARDIOVASCULAR: Regular rate and rhythm. No murmur appreciated. RESPIRATORY: No accessory muscle use. Clear to auscultation. Breath sounds equal bilaterally. GASTROINTESTINAL: Abdomen soft, non-tender, nondistended. Bowel sounds x4. MUSCULOSKELETAL: No obvious deformities. No clubbing or cyanosis. No edema. NEUROLOGICAL: Lethargic but easily arousable answering questions appropriately oriented to person and place. Following simple commands. Right facial droop and left upper extremity pronator drift. Bilateral lower extremities also weak able to raise against gravity slightly. She has slight slurred speech Procedures None Date of Insertion: Sep 14, 2016 Date of Removal: Sep 16, 2016 A/P Problem List: (1) Accelerated hypertension ICD Code: I10 Status: Acute Assessment and Plan 70-year-old female with history of hypertension, edema, CKD, weakness presents after falling out the bed last night 09/13. Stroke alert. TIA versus CVA. MRI with changes in the right parietal suggestive of ischemia. Permissive hypertension. Continue aspirin. LDL 47. A1c 5.3. PT/OT/ST. Continue aspirin. Neurochecks. Echocardiogram EF of 60% Generalized weakness/fatigue with encephalopathy: likely multifactorial secondary to UTI, hypertensive encephalopathy, dehydration, and recent fall. See treatment below. Head CT with old ischemic changes, no acute findings. Consult PT/OT/ST. Hypertensive Encephalopathy secondary to Accelerated HTN: BP 200/106 upon arrival. . Holding off on SHELL/ARB secondary to TRUDI/CKD. Monitor BP, continue Coreg, continue nifedipine, continue hydralazine to 100 mg 3 times a day. Because of stroke, BP meds on hold until cleared by neurology UTI: UA with large leuks, many WBCs. S/p IV Rocephin x3days. Urine culture with no growth. Constipation-sorbitol. Possible CHF Exacerbation: BNP elevated at 990. CXR with mild cardiomegaly, no acute findings. Trace BLE edema. Echo 09/06/15 showed normal systolic function EF 55-60%, mild MR, mild TR, mild to mod increased pulmonary arterial pressure. Consulted patient's typewriter operator automatic, appreciate input. Elevated Troponins: no complaints of chest pain.Trended enzymes are flat at 0.22 , 0.19, 0.19. EKG with no acute ST elevation/depression. Consulted cardiology. Monitor on telemetry. TRUDI on CKD, stage III: hypertensive renal disease. TRUDI secondary to dehydration with decreased recent oral intake. Given IVF, DC. Avoid nephrotoxins. No improvement, consulted nephrology, appreciate input. Follow up BMP. Per hematology, unlikely multiple myeloma, defer bone biopsy for now given patient' s comorbidities, monitor for now, follow-up as outpatient Pancreatic mass on ct of abdomen without contrast: marker studies normal. MRI with contrast (not safe due to renal failure) and or an endoscopic ultrasound to evaluate the ? pancreatic mass. She is not a candidate for treatment ( surgery, radiation, chemotherapy) should she have a pancreatic cancer. Discussed with the family per oncology Pulmonary Hypertension: seen on previous echo as above. Consulted pulmonology and cardiology, appreciate input. Follow-up as outpatient. Fall, Hip Pain: pt fell out of bed prior to arrival. CPK wnl. Hip/pelvis and femur xray negative for fracture. Patient needs rehabilitation, consult case management FEN. TF if ok with family. Aspiration precautions. May need mittens. Consult dietitian DVT Prophylaxis: heparin sq Discharge Planning Not stable for discharge. Patient refused SNF Dwain Louis MD Sep 26, 2016 11:59
--- NOTE | 2016-09-26 13:18 | HHI.HCPN ---
Reason for visit a. To assist with evaluation and management of symptoms including: dysphagia , weakness, confusion b. To assist medical decision maker(s) with: better understanding of current medical conditions; weighing benefits/burdens of medical treatment options; making medical treatment decisions. . Subjective/Interval History Ms. Noel is a 71 year old female admitted on 09/14/16 for management of UTI, acute on chronic kidney injury and uncontrolled hypertension. Blood pressures remain high in spite of intervention. On 09/25 a stroke alert was called. She has had multiple TIA's in the past. Diagnostics were unable to determine a specific event. She remains in bed today with head of bed flat. She has a noticable L sided facial droop. Needle Leader strength is much less on the Left than right. She tells me she is feeling okay, but wants her daughters. No one is hear at this time. She is getting IV and remains NPO. Last week Saturday, she was in the ott walking a short distant with a walker. This required a tremendous amount of effort on her part, but she was able to do it with no stand up assist. Per notes, the patient's daughter (Carmen) has been unable to produce documentation designating her as the HCS. Per [place] statutes, in the absence of written advanced directives healthcare proxy decision making falls to the majority of the patient's 9 children, if they chose to participate in decision making. Will continue to attempt to reach other family members. . Advance Directives Advance Directive Specifics Health Care Surrogate(s): Carmen (daughter) [phone] has been patient's primary caregiver and states she is designated as the patients HCS but has been unable to locate the documentation. Per [place] statutes in the absence of written advanced directives healthcare proxy decision making would fall to the majority of the patient's 9 adult children. Patient's sons, Yousif and Tim, have opted out the role of healthcare proxy decision maker. . Documented care wishes: Family are in agreement with alternative code status. CPR without intubation. Objective Vital Signs Date Time Temp Pulse Resp B/P Pulse Ox O2 Delivery O2 Flow Rate FiO2 09/26/16 09:15 Nasal Cannula 3.00 09/26/16 09:03 94 Nasal Cannula 3.00 09/26/16 08:00 98.7 86 19 193/101 93 09/26/16 04:00 96.4 79 20 197/95 92 09/26/16 00:00 98.6 83 18 161/86 94 09/25/16 23:07 92 Nasal Cannula 2.00 Humidified 09/25/16 20:33 79 09/25/16 20:00 97.3 78 20 171/90 92 09/25/16 18:01 94 Nasal Cannula 4.00 09/25/16 17:20 97.0 68 18 139/76 92 09/25/16 16:00 97.8 58 18 115/72 94 09/25/16 12:00 98.6 62 16 123/67 96 Intake & Output 09/26/16 09/26/16 07:00 19:00 Intake Total 1367 ml Balance 1367 ml Intake Oral 0 ml IV Total 1367 ml # Voids 4 # Bowel Movements 0 Physical Exam CONSTITUTIONAL/GENERAL: Patient is a 71-year-old female status post stroke alert , resting in bed comfortably this morning. TUBES/LINES/DRAINS: French catheter, nasal cannula, IV lines SKIN: No jaundice, rashes, or lesions. Skin temperature appropriate. Not diaphoretic. HEAD: Atraumatic. Normocephalic. EYES: Pupils equal and round and reactive. No scleral icterus. No injection or drainage. ENT: Hearing grossly normal. NECK: Trachea midline. Supple, nontender. CARDIOVASCULAR: Regular rate and rhythm without murmurs, gallops, or rubs. No JVD. Peripheral pulses symmetric. RESPIRATORY/CHEST: Symmetric, unlabored respirations. Breath sounds diminished diminished in bases bilaterally. GASTROINTESTINAL: Abdomen soft, non-tender, nondistended. Bowel sounds present. GENITOURINARY: Without palpable bladder distension. MUSCULOSKELETAL: Extremities without clubbing, cyanosis, or edema. No mottling or clubbing. LYMPHATICS: No palpable cervical or supraclavicular adenopathy. NEUROLOGICAL: Lethargic. She is awake and responds slowly but appropriately to a few questions; Significant right sided facial droop is observed. She follows some simple commands. 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 PSYCHIATRIC: Mild anxiety / tearful as she is wanting her daughter present . Diagnostic Tests Laboratory Laboratory Tests Test 09/24/16 09/25/16 09/26/16 05:30 11:00 05:15 Sodium Level 143 MEQ/L 146 MEQ/L (136-145) (136-145) Potassium Level 4.7 MEQ/L 4.1 MEQ/L (3.5-5.1) (3.5-5.1) Chloride Level 113 MEQ/L 117 MEQ/L (98-107) (98-107) Carbon Dioxide Level 18.7 MEQ/L 17.8 MEQ/L (21.0-32.0) (21.0-32.0) Anion Gap 11 MEQ/L (5-15) 11 MEQ/L (5-15) Blood Urea Nitrogen 58 MG/DL (7-18) 50 MG/DL (7-18) Creatinine 3.45 MG/DL 3.46 MG/DL (0.50-1.00) (0.50-1.00) Estimat Glomerular Filtration 16 ML/MIN (>89) 16 ML/MIN (>89) Rate Random Glucose 107 MG/DL 83 MG/DL (74-106) (74-106) Calcium Level 9.4 MG/DL 8.7 MG/DL (8.5-10.1) (8.5-10.1) White Blood Count 4.8 TH/MM3 (4.0-11.0) Red Blood Count 3.06 MIL/MM3 (4.00-5.30) Hemoglobin 8.9 GM/DL (11.6-15.3) Bedside Hemoglobin 8.8 G/DL (12.0-17.0) Hematocrit 26.7 % (35.0-46.0) Bedside Hematocrit 26.0 % (38.0-51.0) Mean Corpuscular Volume 87.4 FL (80.0-100.0) Mean Corpuscular Hemoglobin 29.0 PG (27.0-34.0) Mean Corpuscular Hemoglobin 33.2 % Concent (32.0-36.0) Red Cell Distribution Width 14.1 % (11.6-17.2) Platelet Count 282 TH/MM3 (150-450) Mean Platelet Volume 8.4 FL (7.0-11.0) Neutrophils (%) (Auto) 44.6 % (16.0-70.0) Lymphocytes (%) (Auto) 41.9 % (9.0-44.0) Monocytes (%) (Auto) 9.7 % (0.0-8.0) Eosinophils (%) (Auto) 2.3 % (0.0-4.0) Basophils (%) (Auto) 1.5 % (0.0-2.0) Neutrophils # (Auto) 2.2 TH/MM3 (1.8-7.7) Lymphocytes # (Auto) 2.0 TH/MM3 (1.0-4.8) Monocytes # (Auto) 0.5 TH/MM3 (0-0.9) Eosinophils # (Auto) 0.1 TH/MM3 (0-0.4) Basophils # (Auto) 0.1 TH/MM3 (0-0.2) CBC Comment AUTO DIFF Differential Comment AUTO DIFF CONFIRMED Ovalocytes 1+ (NORMAL) Prothrombin Time 12.5 SEC (9.8-11.6) Prothromb Time International 1.1 RATIO Ratio Activated Partial 29.2 SEC Thromboplast Time (24.3-30.1) Fibrinogen 266 mg/dL (181-393) Bedside Sodium 146 MMOL/L (138-146) Bedside Potassium 4.5 MMOL/L (3.5-4.9) Bedside Chloride 117 MMOL/L (98-109) Bedside Blood Urea Nitrogen 48 MG/DL (8-26) Bedside Creatinine 3.5 MG/DL (0.6-1.0) Bedside Glucose 92 MG/DL (60-95) Hemoglobin A1c 5.6 % (4.3-6.0) Total Creatine Kinase 52 U/L (26-192) Troponin I 0.14 NG/ML (0.02-0.05) Blood Type A POSITIVE Antibody Screen NEGATIVE Blood Bank Comment Magnesium Level 2.0 MG/DL (1.5-2.5) Triglycerides Level 124 MG/DL (42-150) Cholesterol Level 123 MG/DL (120-200) LDL Cholesterol 47 MG/DL (0-99) HDL Cholesterol 51.3 MG/DL (40.0-60.0) Cholesterol/HDL Ratio 2.39 RATIO Result Diagram: 09/25/16 1100 09/26/16 0515 Imaging Last [address] 09/25/16 0000 Signed Impressions: Service Date/Time: Sunday, September 25, 2016 11:24 - CONCLUSION: 1. Stable noncontrast head CT. No acute intracranial abnormality is identified. 2. Chronic changes include generalized atrophy and moderate severity periventricular white matter low-attenuation characteristic of chronic microvascular ischemia. Sanket Weeks MD Carotid Artery Ultrasound 09/25/16 0000 Signed Impressions: Service Date/Time: Sunday, September 25, 2016 22:39 - CONCLUSION: 1. Calcified atherosclerotic plaquing in both carotid bulbs extending into the bifurcations. 2. Doppler velocities and ratios suggest a less than 50%% stenosis in the left internal carotid. 3. No significant stenosis on the right. Antegrade flow in both vertebral arteries. Charlie Babb MD Brain MRI 09/25/16 0000 Signed Impressions: Service Date/Time: Sunday, September 25, 2016 15:01 - CONCLUSION: 1. Examination is severely degraded by motion artifact. 2. There is a punctate area of suspected restricted diffusion in the right parietal subcortical white matter in the mid convexity. This may represent a focal area of ischemia. 3. Background severe periventricular and subcortical white matter signal change characteristic of chronic microvascular ischemia. Sanket Weeks MD Assessment and Plan Disease Oriented Problem List: (1) CVA, old, cognitive deficits Comment: Functionally weak, needs moderate to maximum assistance with ADLs. (2) Malignant hypertension (arteriolar nephrosclerosis) Comment: Blood pressure elevated overnight. Coreg dose increased to 25 mg PO q 12 hours today - 09/25/16. (3) Chronic kidney disease (CKD), stage IV (severe) Comment: New findings: Hematology consult by nephrology to investigated monoclonal gammopathy versus light chain deposits (4) [id number] kidney injury Comment: 09/24/16: Creatinine increased to 3.45, previously 3.16 on 09/18/16. . Symptom Scale: (1) Pain 0-10 Scale: Unable to quantify Comment: History of back problems as well as leg pain. (2) Dyspnea 0-10 Scale: 5 Comment: remains on O2 via NC (3) Dysphagia Comment: currently NPO pending ST eval Pertinent Non-Medical Issues Psychosocial: Lives with daughter, would need 24-hour care Spiritual: [facility] would accept it Poolroom/Poolhall Manager visit Legal: None identified Ethical issues impacting care: None identified Important Contacts Daughter Carmen Noel [phone]. Additional family Carmen (daughter) [phone] - living with this daughterbelieve she has paperwork indicating she is health care surrogate. She is listed as next of kin person to contact in the clinical record. She has been the primary caregiver. Leti (daughter ???) [phone] -lives across the street. Assists in her care. Germán (son/eldest) [phone] in [place] - felt to be the "boss" in the family Ed (son) [phone] - lives in [facility] area Yousif Bernardo (son) [phone] - lives in [facility] are opted out on decision making Anthony (son) [phone] lives in [place], [place] - opted out on decision making Yanci (Doris-daughter) - [phone] - lives in [place], [place] Tae (daughter). [phone] Scotty (son). [phone] lives in [place], [place] Kameron (son) [phone] Prognosis At this time Prognosis is fair. She has had CVA and TIAswith recent TIA showing L side facail droop and L side weakness , advancing chronic kidney disease stage IV and she has poorly controlled blood pressure, that at some future point may result in worsening kidney disease and or the eventuality of another stroke rendering her more debilitated than what she is. Code Status: Alternative Code (CPR - compressions, shock, ALCS drugs - NO chest compressions) Plan = ALTERNATE CODE - NO INTUBATION = Decision Maker: Pending clarification Carmen (daughter) [phone] - documentation designating patient's daughter has not been found at this point in time. Per [place] statutes, in the absence of written advanced directives healthcare proxy decision making will fall to the majority of the patient's 9 adult children. = Attempting to contact patient's children to determine who wishes to be involved in healthcare proxy decision making. Patient's sons, Yousif and Tim , have opted out of health care proxy decision-making. = A stroke alert on 09/26/16 - Blood pressures are still poorly managed . No acute event identifed in recent diagnostics. . = Symptom management-dysphagia: Patient developed s/s dysphagia this am, a stroke alert was subsequently called. Speech therapy was consulted for a swallow evaluation-patient will remain NPO at this time. . Attestation To help prompt me to consider important information that might be impacting today's encounter and assessment, information from prior notes written by myself or my colleagues may have been "brought forward" into today's note. My signature on this note, however, is an attestation that I personally performed the exam, history, and/or decision-making noted today, and, unless otherwise indicated, the interactions with patient, family, and staff as well as the review of records all occurred today. I also attest that the listed assessment and stated plan reflect my best clinical judgment today based on the combination of historical information, prior notes, and today's exam/ interactions. When time spent is documented, it refers only to time spent today by the signer, or if indicated, combined time spent today by collaborating physician/nurse practitioner. Jessica Lemus Sep 26, 2016 13:18
[2016-09-26] MEDS: ASPIRIN 300 MG SUPP RECTAL SCH (14:23)
--- NOTE | 2016-09-26 14:44 | PD.CARD.PN ---
Subjective Subjective Remarks asleep in nad Objective Vital Signs / I&O Vital Signs Date Time Temp Pulse Resp B/P Pulse Ox O2 Delivery O2 Flow Rate FiO2 09/26/16 09:15 Nasal Cannula 3.00 09/26/16 09:03 94 Nasal Cannula 3.00 09/26/16 08:00 98.7 86 19 193/101 93 09/26/16 04:00 96.4 79 20 197/95 92 09/26/16 00:00 98.6 83 18 161/86 94 09/25/16 23:07 92 Nasal Cannula 2.00 Humidified 09/25/16 20:33 79 09/25/16 20:00 97.3 78 20 171/90 92 09/25/16 18:01 94 Nasal Cannula 4.00 09/25/16 17:20 97.0 68 18 139/76 92 09/25/16 16:00 97.8 58 18 115/72 94 I/O 09/25/16 09/25/16 09/25/16 09/26/16 09/26/16 09/26/16 07:00 15:00 23:00 07:00 15:00 23:00 Intake Total 120 ml 42 ml 0 ml 1367 ml 556 ml Balance 120 ml 42 ml 0 ml 1367 ml 556 ml Intake Oral 120 ml 0 ml 0 ml 0 ml IV Total 42 ml 1367 ml 556 ml # Voids 2 3 1 3 # Bowel Movements 0 3 0 0 Physical Exam GENERAL: SKIN: Warm and dry. HEAD: Normocephalic. EYES: No scleral icterus. No injection or drainage. NECK: Supple, trachea midline. No JVD or lymphadenopathy. CARDIOVASCULAR: Regular rate and rhythm without murmurs, gallops, or rubs. RESPIRATORY: Breath sounds equal bilaterally. No accessory muscle use. GASTROINTESTINAL: Abdomen soft, non-tender, nondistended. MUSCULOSKELETAL: No cyanosis, or edema. BACK: Nontender without obvious deformity. No CVA tenderness. Laboratory Laboratory Tests Test 09/26/16 05:15 Sodium Level 146 MEQ/L Potassium Level 4.1 MEQ/L Chloride Level 117 MEQ/L Carbon Dioxide Level 17.8 MEQ/L Anion Gap 11 MEQ/L Blood Urea Nitrogen 50 MG/DL Creatinine 3.46 MG/DL Estimat Glomerular Filtration 16 ML/MIN Rate Random Glucose 83 MG/DL Calcium Level 8.7 MG/DL Magnesium Level 2.0 MG/DL Triglycerides Level 124 MG/DL Cholesterol Level 123 MG/DL LDL Cholesterol 47 MG/DL HDL Cholesterol 51.3 MG/DL Cholesterol/HDL Ratio 2.39 RATIO Assessment and Plan Problem List: (1) Accelerated hypertension (2) Dehydration (3) ARF (acute renal failure) (4) Mgliu-if-wapayvr kidney injury Assessment and Plan 1.) HTN - worse off nifedipine 90 qd, coreg 12.5 bid, hydralazine 50 mg q8hrs, held due to tia possibly due to watershed ischemia due to relative hypotension, rec f/u neuro recommendations Tonio Puente MD Sep 26, 2016 14:44
[2016-09-26] MEDS: cloNIDine HCL 0.1 MG TAB PO PRN (15:00)
[2016-09-26] MEDS ORDERED: NITROGLYCERIN 2% OINT 1 GM PACKET TOPICAL PRN (16:00)
--- NOTE | 2016-09-26 17:42 | HHI.NPPN ---
Subjective General Problems: Anemia, Hypertension Renal Failure: Chronic, Acute, Stage IV History of Present Illness 71-year-old female with a past medical history of hypertension and history of chronic kidney disease who came to the hospital because of history of fall from the bed. The patient was admitted on September 14 and I was called to see the patient because of elevated BUN and creatinine. The patient previously has a known history of chronic kidney disease although she is not seeing any carton catcher on a regular basis. Her creatinine a year ago in August of 2015 was 2.1, and now she was admitted with a creatinine of 2.8. Additional Remarks Patient is now NPO and started on IVF, no SOB. Review of Systems General Constitutional: Fatigue Cardiovascular Cardiac: VERGARA Objective Data Data 09/25/16 09/26/16 19:00 07:00 Intake Total 42 ml 1367 ml Balance 42 ml 1367 ml Intake Oral 0 ml 0 ml IV Total 42 ml 1367 ml # Voids 3 4 # Bowel Movements 3 0 Vital Signs Date Time Temp Pulse Resp B/P Pulse Ox O2 Delivery O2 Flow Rate FiO2 09/26/16 12:00 97.8 84 17 217/118 92 216/120 09/26/16 09:15 Nasal Cannula 3.00 09/26/16 09:03 94 Nasal Cannula 3.00 09/26/16 08:00 98.7 86 19 193/101 93 09/26/16 04:00 96.4 79 20 197/95 92 09/26/16 00:00 98.6 83 18 161/86 94 09/25/16 23:07 92 Nasal Cannula 2.00 Humidified 09/25/16 20:33 79 09/25/16 20:00 97.3 78 20 171/90 92 09/25/16 18:01 94 Nasal Cannula 4.00 -: 09/25/16 1100 09/26/16 0515 Physical Exam General Appearance: No Acute Distress, Comfortable Eyes Eye Exam: Pupils Equal Throat Throat Exam: Oral Mucosa [place] & Moist Neck Neck Exam: Neck Supple Pulmonary Resp Exam: No Distress, Rhonchi, Decreased Bases, Diminished Breath Sounds Cardiology CV Exam: Regular, Normal Sinus Rhythm Gastrointestinal/Abdomen GI Exam: Soft, Non-Tender, Bowel Sounds Present Extremeties Extremities Exam: No Edema Neurologic Neuro Exam: Alert, Awake Psychiatric Psych Exam: Appropriate Responses Assessment/Plan Assessment Summary: TRUDI/Acute Renal Failure, Anemia of CKD, Hypertension, CKD Stage IV Problem List: (1) Contusion, hip (2) UTI (urinary tract infection) (3) Dehydration (4) ARF (acute renal failure) (5) Accelerated hypertension (6) Cnlyf-sg-bwawnph kidney injury Plan Patient has been non oliguric. Has chronic kidney disease, possibly related to Hypertensive renal disease, Hematology input appreciated BM biopsy not planned due to comorbid condition, and stability of her disease. Also has suspected Pancreatic mass, recommended no further workup as she is not a candidate for any treatment. Now NPO and started on IVF. Creatinine still elevated. BP elevated, , will add Clonidine patch as she is NPO. Danie Sanchez MD Sep 26, 2016 17:42
[2016-09-26] MEDS ORDERED: cloNIDine HCL 0.2 MG/24 HR PATCH TD SCH (17:45)
--- NOTE | 2016-09-26 18:47 | HHI.PR ---
Subjective Remarks 71 YOAA female with HTN,PHTN,mild sob Breathing better family at BS Awake, follows commands Failed swallow eval has NGT Objective Vital Signs Vital Signs Date Time Temp Pulse Resp B/P Pulse Ox O2 Delivery O2 Flow Rate FiO2 09/26/16 18:10 92 Nasal Cannula 3.00 09/26/16 12:00 97.8 84 17 217/118 92 216/120 09/26/16 09:15 Nasal Cannula 3.00 09/26/16 09:03 94 Nasal Cannula 3.00 09/26/16 08:00 98.7 86 19 193/101 93 09/26/16 04:00 96.4 79 20 197/95 92 09/26/16 00:00 98.6 83 18 161/86 94 09/25/16 23:07 92 Nasal Cannula 2.00 Humidified 09/25/16 20:33 79 09/25/16 20:00 97.3 78 20 171/90 92 I/O 09/25/16 09/25/16 09/25/16 09/26/16 09/26/16 09/26/16 07:00 15:00 23:00 07:00 15:00 23:00 Intake Total 120 ml 42 ml 0 ml 1367 ml 556 ml Balance 120 ml 42 ml 0 ml 1367 ml 556 ml Intake Oral 120 ml 0 ml 0 ml 0 ml 0 ml IV Total 42 ml 1367 ml 556 ml # Voids 2 3 1 3 5 # Bowel Movements 0 3 0 0 0 Result Diagram: 09/25/16 1100 09/26/16 0515 Objective Remarks GENERAL: Elderly female,NAD SKIN: Warm and dry. HEAD: Normocephalic. EYES: No scleral icterus. No injection or drainage. NECK: Supple, trachea midline. No JVD or lymphadenopathy. CARDIOVASCULAR: Regular rate and rhythm without murmurs, gallops, or rubs. RESPIRATORY: Breath sounds equal bilaterally. No accessory muscle use. GASTROINTESTINAL: Abdomen soft, non-tender, nondistended. MUSCULOSKELETAL: No cyanosis, or edema. BACK: Nontender without obvious deformity. No CVA tenderness. A/P Assessment and Plan PHTN Uncontrolled HTN CVA H/O Fall PLAN DW family NGT Neuro PANG underway Supplement 02 Monitor BP Vern Castanon MD Sep 26, 2016 18:47
--- NOTE | 2016-09-26 22:08 | HHI.PR ---
Review/Management Diagnosis - Acute Ischemic stroke - Encephalopathy, resolving related to hypertensive encephalopathy and UTI. Plan - Neurological checks one hourly. - Aspirin 325 mg daily. - Resume management of BP, maintain BP 125-130/75-80 - Physical and occupational therapy recommendations are appreciated. - Swallow test. - DVT prophylaxis, SCDs. - GI prophylaxis. - Patient needs inpatient rehabilitation Diagnosis/Plan: Subjective Subjective Comments No acute events reported Patient is more awake, alert this morning Dysarthria and dysphagia Active Medications Current Medications Medications (Trade) Dose Ordered Sig/Lenora Route Start Time Stop Time Status Last Admin (NS Flush) 2 ml UNSCH PRN FLUSH 09/14/16 09:30 09/19/16 01:49 (NS Flush) 2 ml BID FLUSH 09/14/16 21:00 09/26/16 20:50 (Heparin Inj) 5,000 units Q12H SQ 09/14/16 10:00 09/26/16 20:49 (Narcan Inj) 0.4 mg UNSCH PRN IV 09/14/16 09:30 (Tylenol) 650 mg Q4H PRN PO 09/16/16 12:00 09/23/16 17:05 (Sodium Bicarbonate) 650 mg Q12HR PO 09/16/16 21:00 09/26/16 20:48 (Ecotrin Ec) 81 mg DAILY PO 09/18/16 13:00 09/25/16 09:09 (Catapres) 0.1 mg Q6H PRN PO 09/18/16 13:00 09/26/16 15:00 (Procardia Xl) 90 mg DAILY PO 09/21/16 09:00 Hold 09/25/16 09:09 (Apresoline) 100 mg Q8HR PO 09/22/16 14:00 Hold 09/25/16 04:09 (Sorbitol 70% Liq) 30 ml DAILY PO 09/24/16 09:00 09/25/16 09:00 Carvedilol 25 mg 25 mg Q12HR PO 09/25/16 21:00 Hold (NS 1000 ml Inj) 1,000 ml @ 70 mls/hr [id number] IV 09/25/16 11:15 09/26/16 20:49 (Aspirin Supp) 300 mg DAILY RECTAL 09/26/16 13:45 09/26/16 14:23 (Nitroglycerin 2% Oint) 0.5 inch Q6HR PRN TOPICAL 09/26/16 16:00 09/26/16 20:48 (Catapres-Tts 0.2 Mg Patch.7d) 1 patch Q7D TD 09/26/16 17:45 09/26/16 20:50 Miscellaneous Information 1 Q7D T-DERMAL 10/03/16 17:45 Allergies Allergies Coded Allergies No Known Allergies (Verified09/14/16) Exam I&O / VS 09/25/16 09/25/16 09/26/16 15:00 23:00 07:00 Intake Total 42 ml 0 ml 1367 ml Balance 42 ml 0 ml 1367 ml Intake Oral 0 ml 0 ml 0 ml IV Total 42 ml 1367 ml # Voids 3 1 3 # Bowel Movements 3 0 0 Vital Signs Date Time Temp Pulse Resp B/P Pulse Ox O2 Delivery O2 Flow Rate FiO2 09/26/16 18:10 92 Nasal Cannula 3.00 09/26/16 12:00 97.8 84 17 217/118 92 216/120 09/26/16 09:15 Nasal Cannula 3.00 09/26/16 09:03 94 Nasal Cannula 3.00 09/26/16 08:00 98.7 86 19 193/101 93 09/26/16 04:00 96.4 79 20 197/95 92 09/26/16 00:00 98.6 83 18 161/86 94 09/25/16 23:07 92 Nasal Cannula 2.00 Humidified Exam Comments GENERAL: Patient not in acute distress. She is awake, alert at baseline of slurring of speech without dentures and right-sided droopy face. HEENT: Intact hearing. Intact vision. No carotid bruit. No signs of meningeal irritation. NECK: Supple. No carotid bruit. CARDIOVASCULAR: Regular rate and rhythm. LUNGS: Clear to auscultation. No wheezes. MUSCULOSKELETAL: Spastic right-sided weakness with mild contracture of the right foot. NEUROLOGICAL: Awake, alert, oriented to place, person and time. Slurred speech / baseline. Pupils are equally reacting to light. No intact external ocular motility. Right facial droop / chronic, right upper and lower extremity spastic, hyperreflexic grade 4+ shoulder abduction, wrist extension and elbow extension. 4 right hip flexion and 4- right foot dorsiflexion. Left upper and lower extremity 5- throughout. Reflexes 2+ with finger flexion and right upper extremity, 3+ right lower extremity. Left upper and lower extremity 2+. Plantars are bilaterally downgoing. Intact sensation bilateral symmetrical. PSYCHIATRIC: Normal mood and behavior. Objective Radiology Results Last [address] 09/25/16 0000 Signed Impressions: Service Date/Time: Sunday, September 25, 2016 11:24 - CONCLUSION: 1. Stable noncontrast head CT. No acute intracranial abnormality is identified. 2. Chronic changes include generalized atrophy and moderate severity periventricular white matter low-attenuation characteristic of chronic microvascular ischemia. Sanket Weeks MD Carotid Artery Ultrasound 09/25/16 0000 Signed Impressions: Service Date/Time: Sunday, September 25, 2016 22:39 - CONCLUSION: 1. Calcified atherosclerotic plaquing in both carotid bulbs extending into the bifurcations. 2. Doppler velocities and ratios suggest a less than 50%% stenosis in the left internal carotid. 3. No significant stenosis on the right. Antegrade flow in both vertebral arteries. Charlie Babb MD Brain MRI 09/25/16 0000 Signed Impressions: Service Date/Time: Sunday, September 25, 2016 15:01 - CONCLUSION: 1. Examination is severely degraded by motion artifact. 2. There is a punctate area of suspected restricted diffusion in the right parietal subcortical white matter in the mid convexity. This may represent a focal area of ischemia. 3. Background severe periventricular and subcortical white matter signal change characteristic of chronic microvascular ischemia. Sanket Weeks MD Micro and Labs Laboratory Tests Test 09/26/16 05:15 Sodium Level 146 Potassium Level 4.1 Chloride Level 117 Carbon Dioxide Level 17.8 Anion Gap 11 Blood Urea Nitrogen 50 Creatinine 3.46 Estimat Glomerular Filtration 16 Rate Random Glucose 83 Calcium Level 8.7 Magnesium Level 2.0 Triglycerides Level 124 Cholesterol Level 123 LDL Cholesterol 47 HDL Cholesterol 51.3 Cholesterol/HDL Ratio 2.39 Masha Pyle MD Sep 26, 2016 22:08
[2016-09-27] VITALS (11 sets, daily range): BP systolic 128–229; BP diastolic 64–112; PULSE 58–81; RESP 16–19; TEMP 97.8–99.1; O2SAT 92–96
[2016-09-27] MEDS: cloNIDine HCL 0.1 MG TAB PO PRN (01:16)
--- NOTE | 2016-09-27 01:23 | RADRPT ---
EXAM DATE/TIME: 09/27/2016 00:55 [facility] COMPARISON: No previous studies available for comparison. INDICATIONS : Confirm NG tube placement. MEDICAL HISTORY : Hypertension. Renal insufficiency, chronic. SURGICAL HISTORY : Tubal ligation. ENCOUNTER: Initial ACUITY: 1 day PAIN SCORE: Non-responsive. LOCATION: Left quadrant FINDINGS: Supine view of the abdomen was performed. NG tube projects over the expected location of the vertical ly elongated gastric lumen. Bowel gas pattern is nonobstructed. There is atherosclerotic calcificatio n of the regional vasculature. Bibasilar effusions/atelectasis with cardiomegaly. No pneumoperitoneum . CONCLUSION: 1. NG tube in the expected location of the gastric lumen. 2. Bibasilar effusion/atelectasis. Charlie Babb MD on September 27, 2016 at 1:20 Board Certified Radiologist. This report was verified electronically.
[2016-09-27] MEDS ORDERED: hydrALAZINE HCL 100 MG TAB PO ONE (04:45)
[2016-09-27] MEDS: hydrALAZINE HCL 100 MG TAB NG SCH ×3 (06:04→21:55)
[2016-09-27 06:14] LABS: BICARBONATE 18.6 MEQ/L (21.0-32.0); MAGNESIUM 1.9 MG/DL (1.5-2.5); POTASSIUM 4.3 MEQ/L (3.5-5.1)
[2016-09-27] MEDS: SORBITOL 70% SOLN 30 ML CUP PO SCH (08:39)
[2016-09-27] MEDS: SODIUM BICARBONATE 650 MG TAB PO SCH (08:39)
[2016-09-27] MEDS: SODIUM CHLORIDE 0.9% FLUSH 5 ML FLUSH FLUSH SCH (08:40)
[2016-09-27] MEDS: ASPIRIN 300 MG SUPP RECTAL SCH (08:40)
[2016-09-27] MEDS: ASPIRIN EC 81 MG TABEC PO SCH (08:40)
[2016-09-27] MEDS: SODIUM BICARBONATE 650 MG TAB NG SCH ×2 (09:00→21:55)
[2016-09-27] MEDS ORDERED: ASPIRIN EC 81 MG TABEC PO SCH (09:00)
[2016-09-27] MEDS: SORBITOL 70% SOLN 30 ML CUP NG SCH (09:00)
[2016-09-27] MEDS: HEPARIN SODIUM - SQ 10,000 UNITS/ML VIAL SQ SCH ×2 (09:36→21:56)
[2016-09-27] MEDS: NIFEdipine 90 MG SUSTAINED RELEASE TAB PO SCH (09:36)
[2016-09-27] MEDS: CARVEDILOL 12.5 MG TAB NG SCH ×2 (09:36→21:55)
[2016-09-27] MEDS ORDERED: ASPIRIN 300 MG SUPP RECTAL PRN (10:56)
--- NOTE | 2016-09-27 11:05 | HHI.PR ---
Subjective Remarks Follow-up CVA. She is more awake today denies headache or dizziness. Seen with daughter. BP is elevated discussed with RN, restart all previous BP medications in addition to Catapres with hold parameters. Start nocturnal tube feeding if tolerating by mouth. Objective Vitals Vital Signs Date Time Temp Pulse Resp B/P Pulse Ox O2 Delivery O2 Flow Rate FiO2 09/27/16 10:17 92 Nasal Cannula 3.00 09/27/16 08:00 79 09/27/16 08:00 98.0 80 18 199/98 93 200/102 09/27/16 06:43 200/102 09/27/16 04:00 98.7 81 19 220/110 96 09/27/16 00:00 98.2 78 19 210/82 94 09/26/16 20:00 98.0 67 19 220/110 96 09/26/16 20:00 66 09/26/16 19:00 Nasal Cannula 4.00 09/26/16 18:10 92 Nasal Cannula 3.00 09/26/16 12:00 97.8 84 17 217/118 92 216/120 I/O 09/26/16 09/26/16 09/26/16 09/27/16 09/27/16 09/27/16 07:00 15:00 23:00 07:00 15:00 23:00 Intake Total 1367 ml 556 ml 0 ml 700 ml 1326 ml Balance 1367 ml 556 ml 0 ml 700 ml 1326 ml Intake Oral 0 ml 0 ml 0 ml 0 ml IV Total 1367 ml 556 ml 700 ml 1326 ml # Voids 3 5 4 4 # Bowel Movements 0 0 Result Diagram: 09/25/16 1100 09/27/16 0529 Imaging Last Impressions Abdomen X-Ray 09/27/16 0000 Signed Impressions: Service Date/Time: September 00:55 - CONCLUSION: 1. NG tube in the expected location of the gastric lumen. 2. Bibasilar effusion/atelectasis. Charlie Babb MD Head CT 09/25/16 0000 Signed Impressions: Service Date/Time: Sunday, September 25, 2016 11:24 - CONCLUSION: 1. Stable noncontrast head CT. No acute intracranial abnormality is identified. 2. Chronic changes include generalized atrophy and moderate severity periventricular white matter low-attenuation characteristic of chronic microvascular ischemia. Sanket Weeks MD Carotid Artery Ultrasound 09/25/16 Signed Impressions: Service Date/Time: Sunday, September 25, 2016 22:39 - CONCLUSION: 1. Calcified atherosclerotic plaquing in both carotid bulbs extending into the bifurcations. 2. Doppler velocities and ratios suggest a less than 50%% stenosis in the left internal carotid. 3. No significant stenosis on the right. Antegrade flow in both vertebral arteries. Charlie Babb MD Brain MRI 09/25/16 Signed Impressions: Service Date/Time: Sunday, September 25, 2016 15:01 - CONCLUSION: 1. Examination is severely degraded by motion artifact. 2. There is a punctate area of suspected restricted diffusion in the right parietal subcortical white matter in the mid convexity. This may represent a focal area of ischemia. 3. Background severe periventricular and subcortical white matter signal change characteristic of chronic microvascular ischemia. Sanket Weeks MD Chest X-Ray 09/18/16 Signed Impressions: Service Date/Time: Sunday, September 18, 2016 22:55 - CONCLUSION: 1. Bilateral mostly basilar airspace disease with cardiomegaly. Differential diagnosis includes mild edema and atelectasis/consolidation. Riky Elmore MD Hip and Pelvis X-Ray 09/14/16 0634 Signed Impressions: Service Date/Time: Wednesday, September 14, 2016 07:09 - CONCLUSION: Osteopenia. No acute abnormality. Fito Diaz Jr., MD Femur X-Ray 09/14/16 0634 Signed Impressions: Service Date/Time: Wednesday, September 14, 2016 07:12 - CONCLUSION: No acute abnormality. Fito Diaz Jr., MD Renal Ultrasound 09/14/16 Signed Impressions: Service Date/Time: Wednesday, September 14, 2016 10:20 - CONCLUSION: 1. Increased echogenicity of the renal parenchyma. This is usually associated with chronic medical renal disease. 2. Mild hydronephrosis of the left collecting system. 3. Benign appearing left renal cysts. 4. Possible nonobstructing right kidney stone. Recommend noncontrast CT abdomen as clinically indicated. Elías Mares MD Abdomen/Pelvis CT 09/14/16 Signed Impressions: Service Date/Time: Wednesday, September 14, 2016 19:43 - CONCLUSION: 1. No stones , hydronephrosis or other acute abnormalities seen of the kidneys. 2. Suspected mass of the pancreatic head. Further attempted characterization with a nonemergent contrast enhanced study is recommended, preferably abdomen MRI. 3. Severe chronic vascular disease. 4. Mild airspace opacities of both visualized lung bases. 5. Panchamber enlargement of the heart and coronary artery calcification. Sanket Marinelli MD Objective Remarks GENERAL: Well-developed well-nourished. In no acute distress. SKIN: Warm and dry. No lesions noted. HEENT: Normocephalic. Pupils equal and round. Mucous membranes pink and moist. CARDIOVASCULAR: Regular rate and rhythm. No murmur appreciated. RESPIRATORY: No accessory muscle use. Clear to auscultation. Breath sounds equal bilaterally. GASTROINTESTINAL: Abdomen soft, non-tender, nondistended. Bowel sounds x4. MUSCULOSKELETAL: No obvious deformities. No clubbing or cyanosis. No edema. NEUROLOGICAL: More awake answering questions appropriately oriented to person and place. Following simple commands. Right facial droop and left upper extremity pronator drift. Bilateral lower extremities also weak able to raise against gravity slightly. She has slight slurred speech Procedures None Date of Insertion: Sep 14, 2016 Date of Removal: Sep 16, 2016 A/P Problem List: (1) Accelerated hypertension ICD Code: I10 Status: Acute Assessment and Plan 70-year-old female with history of hypertension, edema, CKD, weakness presents after falling out the bed last night 09/13. Stroke alert. TIA versus CVA. MRI with changes in the right parietal suggestive of ischemia. Status post Permissive hypertension. LDL 47. A1c 5.3. PT/OT/ST. Continue aspirin. Neurochecks. Echocardiogram EF of 60% . Improving mental status Generalized weakness/fatigue with encephalopathy: likely multifactorial secondary to UTI, hypertensive encephalopathy, dehydration, and recent fall. See treatment below. Head CT with old ischemic changes, no acute findings. Consult PT/OT/ST. Hypertensive Encephalopathy secondary to Accelerated HTN: BP 200/106 upon arrival. Holding off on SHELL/ARB secondary to TRUDI/CKD. Uncontrolled secondary to permissive hypertension but has been cleared to restart BP medications by neurology. Monitor BP, restart Coreg, nifedipine, hydralazine in addition to clonidine with hold parameters UTI: UA with large leuks, many WBCs. S/p IV Rocephin x3days. Urine culture with no growth. Constipation-sorbitol. Possible CHF Exacerbation: BNP elevated at 990. CXR with mild cardiomegaly, no acute findings. Trace BLE edema. Echo 09/06/15 showed normal systolic function EF 55-60%, mild MR, mild TR, mild to mod increased pulmonary arterial pressure. Consulted patient's veterinary pathologist, appreciate input. Elevated Troponins: no complaints of chest pain.Trended enzymes are flat at 0.22 , 0.19, 0.19. EKG with no acute ST elevation/depression. Consulted cardiology. Monitor on telemetry. TRUDI on CKD, stage III: hypertensive renal disease. TRUDI secondary to dehydration with decreased recent oral intake. Given IVF, DC. Avoid nephrotoxins. No improvement, consulted nephrology, appreciate input. Follow up BMP. Per hematology, unlikely multiple myeloma, defer bone biopsy for now given patient' s comorbidities, monitor for now, follow-up as outpatient Pancreatic mass on ct of abdomen without contrast: marker studies normal. MRI with contrast (not safe due to renal failure) and or an endoscopic ultrasound to evaluate the ? pancreatic mass. She is not a candidate for treatment ( surgery, radiation, chemotherapy) should she have a pancreatic cancer. Discussed with the family per oncology Pulmonary Hypertension: seen on previous echo as above. Consulted pulmonology and cardiology, appreciate input. Follow-up as outpatient. Fall, Hip Pain: pt fell out of bed prior to arrival. CPK wnl. Hip/pelvis and femur xray negative for fracture. Patient needs rehabilitation, consult case management FEN. TF and by mouth. Aspiration precautions. May need mittens. Consulted dietitian DVT Prophylaxis: heparin sq Discharge Planning Not stable for discharge. Patient now agrees to placement Dwain Louis MD Sep 27, 2016 11:05
[2016-09-27] MEDS ORDERED: ACETAMINOPHEN 325 MG TAB NG PRN (12:00)
[2016-09-27] MEDS ORDERED: cloNIDine HCL 0.1 MG TAB NG PRN (13:00)
--- NOTE | 2016-09-27 13:31 | HHI.HCPN ---
Reason for visit a. To assist with evaluation and management of symptoms including: dysphagia , weakness, confusion b. To assist medical decision maker(s) with: better understanding of current medical conditions; weighing benefits/burdens of medical treatment options; making medical treatment decisions. . Subjective/Interval History Ms. Noel is a 71 year old female admitted on 09/14/16 for management of UTI, acute on chronic kidney injury and uncontrolled hypertension. Blood pressures remain high in spite of intervention. On 09/25 a stroke alert was called. She has had multiple TIA's in the past. She is seen w her Merlin Tae at the bedside. She is awake and response - smiles and laughs. Tells me she is just tired and wants to sleep. She failed the swallow evaluation. She now has an NTG and feeds have yet to commence. She is getting IV and remains NPO. She has a noticable L sided facial droop. Med Specialist strength is much less on the Left than right. She tells me she is feeling okay, Last week Saturday, she was in the ott walking a short distant with a walker. Per [place] statutes, in the absence of written advanced directives healthcare proxy decision making falls to the majority of the patient's 9 children, if they chose to participate in decision making. At this point most of the children have been contacted. 6 agree to participate in decision making --- . Advance Directives Advance Directive Specifics Health Care Surrogate(s): No designated HCS. [place] Statue requires 50% agreement of adult children willing to participate in to agree in health care decisions. Carmen (daughter) [phone] - living with this daughterbelieve she has paperwork indicating she is health care surrogate. She is listed as next of kin person to contact in the clinical record. She has been the primary caregiver. Leti (daughter)[phone] - lives across the street. Assists in her care. Germán (son/eldest) [phone] lives in [place] - felt to be the "boss" in the family Scotty (son). [phone] - lives in [place], [place] Kameron (son) [phone] - lives in [place], [place] Tae (daughter). [phone] - lives in [facility] These members are not available or have opted out. Ed (son) [phone] - lives in [facility] area - unable to reach Yousif Bernardo (son) [phone] - lives in [facility] are opted out on decision making Anthony (son) [phone] lives in [place], [place] - opted out on decision making Yanci (Doris-daughter) - [phone] - opted out lives in [place], [place] Documented care wishes: Family are in agreement with alternative code status. CPR without intubation. Objective Vital Signs Date Time Temp Pulse Resp B/P Pulse Ox O2 Delivery O2 Flow Rate FiO2 09/27/16 12:48 95 Room Air 09/27/16 12:44 58 16 128/64 95 09/27/16 12:00 99.1 72 17 229/112 96 09/27/16 10:17 92 Nasal Cannula 3.00 09/27/16 08:00 79 09/27/16 08:00 98.0 80 18 199/98 93 200/102 09/27/16 06:43 200/102 09/27/16 04:00 98.7 81 19 220/110 96 09/27/16 00:00 98.2 78 19 210/82 94 09/26/16 20:00 98.0 67 19 220/110 96 09/26/16 20:00 66 09/26/16 19:00 Nasal Cannula 4.00 09/26/16 18:10 92 Nasal Cannula 3.00 Intake & Output 09/27/16 09/27/16 07:00 19:00 Intake Total 700 ml 2652 ml Balance 700 ml 2652 ml Intake Oral 0 ml IV Total 700 ml 2652 ml # Voids 8 Physical Exam CONSTITUTIONAL/GENERAL: Patient is a 71-year-old female status post stroke alert , resting in bed comfortably this morning. TUBES/LINES/DRAINS: French catheter, nasal cannula, IV lines, NGT SKIN: No jaundice, rashes, or lesions. Skin temperature appropriate. Not diaphoretic. HEAD: Atraumatic. Normocephalic. EYES: Pupils equal and round and reactive. No scleral icterus. No injection or drainage. ENT: Hearing grossly normal. NECK: Trachea midline. Supple, nontender. CARDIOVASCULAR: Regular rate and rhythm without murmurs, gallops, or rubs. No JVD. Peripheral pulses symmetric. RESPIRATORY/CHEST: Symmetric, unlabored respirations. Breath sounds diminished diminished in bases bilaterally. GASTROINTESTINAL: Abdomen soft, non-tender, nondistended. Bowel sounds present. GENITOURINARY: Without palpable bladder distension. MUSCULOSKELETAL: Extremities without clubbing, cyanosis, or edema. No mottling or clubbing. LYMPHATICS: No palpable cervical or supraclavicular adenopathy. NEUROLOGICAL: Lethargic. She is awake and responds slowly but appropriately to a few questions; Significant right sided facial droop is observed. She follows some simple commands. L intellectual property lawyer signicantly weaker than R side. PSYCHIATRIC: Mild anxiety / tearful as she is wanting her daughter present . Diagnostic Tests Laboratory Laboratory Tests Test 09/25/16 09/26/16 09/27/16 11:00 05:15 05:29 White Blood Count 4.8 TH/MM3 (4.0-11.0) Red Blood Count 3.06 MIL/MM3 (4.00-5.30) Hemoglobin 8.9 GM/DL (11.6-15.3) Bedside Hemoglobin 8.8 G/DL (12.0-17.0) Hematocrit 26.7 % (35.0-46.0) Bedside Hematocrit 26.0 % (38.0-51.0) Mean Corpuscular Volume 87.4 FL (80.0-100.0) Mean Corpuscular Hemoglobin 29.0 PG (27.0-34.0) Mean Corpuscular Hemoglobin 33.2 % Concent (32.0-36.0) Red Cell Distribution Width 14.1 % (11.6-17.2) Platelet Count 282 TH/MM3 (150-450) Mean Platelet Volume 8.4 FL (7.0-11.0) Neutrophils (%) (Auto) 44.6 % (16.0-70.0) Lymphocytes (%) (Auto) 41.9 % (9.0-44.0) Monocytes (%) (Auto) 9.7 % (0.0-8.0) Eosinophils (%) (Auto) 2.3 % (0.0-4.0) Basophils (%) (Auto) 1.5 % (0.0-2.0) Neutrophils # (Auto) 2.2 TH/MM3 (1.8-7.7) Lymphocytes # (Auto) 2.0 TH/MM3 (1.0-4.8) Monocytes # (Auto) 0.5 TH/MM3 (0-0.9) Eosinophils # (Auto) 0.1 TH/MM3 (0-0.4) Basophils # (Auto) 0.1 TH/MM3 (0-0.2) CBC Comment AUTO DIFF Differential Comment AUTO DIFF CONFIRMED Ovalocytes 1+ (NORMAL) Prothrombin Time 12.5 SEC (9.8-11.6) Prothromb Time International 1.1 RATIO Ratio Activated Partial 29.2 SEC Thromboplast Time (24.3-30.1) Fibrinogen 266 mg/dL (181-393) Bedside Sodium 146 MMOL/L (138-146) Bedside Potassium 4.5 MMOL/L (3.5-4.9) Bedside Chloride 117 MMOL/L (98-109) Bedside Blood Urea Nitrogen 48 MG/DL (8-26) Bedside Creatinine 3.5 MG/DL (0.6-1.0) Bedside Glucose 92 MG/DL (60-95) Hemoglobin A1c 5.6 % (4.3-6.0) Total Creatine Kinase 52 U/L (26-192) Troponin I 0.14 NG/ML (0.02-0.05) Blood Type A POSITIVE Antibody Screen NEGATIVE Blood Bank Comment Sodium Level 146 MEQ/L 147 MEQ/L (136-145) (136-145) Potassium Level 4.1 MEQ/L 4.3 MEQ/L (3.5-5.1) (3.5-5.1) Chloride Level 117 MEQ/L 118 MEQ/L (98-107) (98-107) Carbon Dioxide Level 17.8 MEQ/L 18.6 MEQ/L (21.0-32.0) (21.0-32.0) Anion Gap 11 MEQ/L (5-15) 10 MEQ/L (5-15) Blood Urea Nitrogen 50 MG/DL (7-18) 45 MG/DL (7-18) Creatinine 3.46 MG/DL 3.05 MG/DL (0.50-1.00) (0.50-1.00) Estimat Glomerular Filtration 16 ML/MIN (>89) 18 ML/MIN (>89) Rate Random Glucose 83 MG/DL 71 MG/DL (74-106) (74-106) Calcium Level 8.7 MG/DL 9.0 MG/DL (8.5-10.1) (8.5-10.1) Magnesium Level 2.0 MG/DL 1.9 MG/DL (1.5-2.5) (1.5-2.5) Triglycerides Level 124 MG/DL (42-150) Cholesterol Level 123 MG/DL (120-200) LDL Cholesterol 47 MG/DL (0-99) HDL Cholesterol 51.3 MG/DL (40.0-60.0) Cholesterol/HDL Ratio 2.39 RATIO Result Diagram: 09/25/16 1100 09/27/16 0529 Imaging Last 72 hours Impressions Abdomen X-Ray 09/27/16 0000 Signed Impressions: Service Date/Time: September 00:55 - CONCLUSION: 1. NG tube in the expected location of the gastric lumen. 2. Bibasilar effusion/atelectasis. Charlie Babb MD Head CT 09/25/16 0000 Signed Impressions: Service Date/Time: Sunday, September 25, 2016 11:24 - CONCLUSION: 1. Stable noncontrast head CT. No acute intracranial abnormality is identified. 2. Chronic changes include generalized atrophy and moderate severity periventricular white matter low-attenuation characteristic of chronic microvascular ischemia. Sanket Wekes MD Carotid Artery Ultrasound 09/25/16 0000 Signed Impressions: Service Date/Time: Sunday, September 25, 2016 22:39 - CONCLUSION: 1. Calcified atherosclerotic plaquing in both carotid bulbs extending into the bifurcations. 2. Doppler velocities and ratios suggest a less than 50%% stenosis in the left internal carotid. 3. No significant stenosis on the right. Antegrade flow in both vertebral arteries. Charlie Babb MD Brain MRI 09/25/16 0000 Signed Impressions: Service Date/Time: Sunday, September 25, 2016 15:01 - CONCLUSION: 1. Examination is severely degraded by motion artifact. 2. There is a punctate area of suspected restricted diffusion in the right parietal subcortical white matter in the mid convexity. This may represent a focal area of ischemia. 3. Background severe periventricular and subcortical white matter signal change characteristic of chronic microvascular ischemia. Sanket Weeks MD Procedures NGT placement 09/26/16 Assessment and Plan Disease Oriented Problem List: (1) CVA, old, cognitive deficits Comment: Functionally weak, needs moderate to maximum assistance with ADLs. (2) Malignant hypertension (arteriolar nephrosclerosis) Comment: Blood pressure elevated overnight. Coreg dose increased to 25 mg PO q 12 hours today - 09/25/16. (3) Chronic kidney disease (CKD), stage IV (severe) Comment: New findings: Hematology consult by nephrology to investigated monoclonal gammopathy versus light chain deposits (4) Txogc-[id number] kidney injury Comment: 09/24/16: Creatinine increased to 3.45, previously 3.16 on 09/18/16. . Symptom Scale: (1) Pain 0-10 Scale: Unable to quantify Comment: History of back problems as well as leg pain. (2) Dyspnea 0-10 Scale: 5 Comment: remains on O2 via NC (3) Dysphagia Comment: currently NPO ; now w NGT Pertinent Non-Medical Issues Psychosocial: Lives with daughter, would need 24-hour care Spiritual: [facility] would accept it [employer] visit Legal: None identified Ethical issues impacting care: None identified Important Contacts Per [place] Status - as the patient doesn't not have a designated HCS - 50% of the children need to agree in decision Carmen (daughter) [phone] - living with this daughterbelieve she has paperwork indicating she is health care surrogate. She is listed as next of kin person to contact in the clinical record. She has been the primary caregiver. Leti (daughter)[phone] - lives across the street. Assists in her care. Germán (son/eldest) [phone] lives in [place] - felt to be the "boss" in the family Scotty (son). [phone] - lives in [place], [place] Kameron (son) [phone] - lives in [place], [place] Tae (daughter). [phone] - lives in [facility] Donnie (son) [phone] - lives in [facility] - unable to reach Yousif Bernardo (son) [phone] - lives in [facility] are opted out on decision making Anthony (son) [phone] lives in [place], [place] - opted out on decision making Yanci (Doris-daughter) - [phone] - opted out lives in [place], [place] Prognosis At this time Prognosis is fair. She has had CVA and TIAswith recent TIA showing L side facail droop and L side weakness , advancing chronic kidney disease stage IV and she has poorly controlled blood pressure, that at some future point may result in worsening kidney disease and or the eventuality of another stroke rendering her more debilitated than what she is. Code Status: Alternative Code (CPR - compressions, shock, ALCS drugs - NO chest compressions) Plan = ALTERNATE CODE - NO INTUBATION = Decision Maker: Pending clarification Carmen (daughter) [phone] - documentation designating patient's daughter has not been found at this point in time. Per [place] statutes, in the absence of written advanced directives healthcare proxy decision making will fall to the majority of the patient's 9 adult children. = Attempting to contact patient's children to determine who wishes to be involved in healthcare proxy decision making. Patient's sons, Yousif and Tim , have opted out of health care proxy decision-making. = A stroke alert on 09/26/16 - Blood pressures are still poorly managed . No acute event identifed in recent diagnostics. . = Symptom management-dysphagia: Patient developed s/s dysphagia this am, a stroke alert was subsequently called. Speech therapy was consulted for a swallow evaluation-patient will remain NPO at this time. . Attestation To help prompt me to consider important information that might be impacting today's encounter and assessment, information from prior notes written by myself or my colleagues may have been "brought forward" into today's note. My signature on this note, however, is an attestation that I personally performed the exam, history, and/or decision-making noted today, and, unless otherwise indicated, the interactions with patient, family, and staff as well as the review of records all occurred today. I also attest that the listed assessment and stated plan reflect my best clinical judgment today based on the combination of historical information, prior notes, and today's exam/ interactions. When time spent is documented, it refers only to time spent today by the signer, or if indicated, combined time spent today by collaborating physician/nurse practitioner. Jessica Lemus Sep 27, 2016 13:30
[2016-09-27] MEDS ORDERED: SORB70SO36 NG (14:09)
[2016-09-27] MEDS ORDERED: CLON.2T TD (14:09)
[2016-09-27] MEDS ORDERED: CARV12.5 NG (14:09)
--- NOTE | 2016-09-27 16:06 | PD.CARD.PN ---
Subjective Subjective Remarks alert in nad Objective Vital Signs / I&O Vital Signs Date Time Temp Pulse Resp B/P Pulse Ox O2 Delivery O2 Flow Rate FiO2 09/27/16 12:48 95 Room Air 09/27/16 12:44 58 16 128/64 95 09/27/16 12:00 99.1 72 17 229/112 96 09/27/16 10:17 92 Nasal Cannula 3.00 09/27/16 08:00 79 09/27/16 08:00 98.0 80 18 199/98 93 200/102 09/27/16 06:43 200/102 09/27/16 04:00 98.7 81 19 220/110 96 09/27/16 00:00 98.2 78 19 210/82 94 09/26/16 20:00 98.0 67 19 220/110 96 09/26/16 20:00 66 09/26/16 19:00 Nasal Cannula 4.00 09/26/16 18:10 92 Nasal Cannula 3.00 I/O 09/26/16 09/26/16 09/26/16 09/27/16 09/27/16 09/27/16 07:00 15:00 23:00 07:00 15:00 23:00 Intake Total 1367 ml 556 ml 0 ml 700 ml 2652 ml Balance 1367 ml 556 ml 0 ml 700 ml 2652 ml Intake Oral 0 ml 0 ml 0 ml 0 ml 0 ml IV Total 1367 ml 556 ml 700 ml 2652 ml # Voids 3 5 4 4 3 # Bowel Movements 0 0 0 Physical Exam GENERAL: SKIN: Warm and dry. HEAD: Normocephalic. EYES: No scleral icterus. No injection or drainage. NECK: Supple, trachea midline. No JVD or lymphadenopathy. CARDIOVASCULAR: Regular rate and rhythm without murmurs, gallops, or rubs. RESPIRATORY: Breath sounds equal bilaterally. No accessory muscle use. GASTROINTESTINAL: Abdomen soft, non-tender, nondistended. MUSCULOSKELETAL: No cyanosis, or edema. BACK: Nontender without obvious deformity. No CVA tenderness. Laboratory Laboratory Tests Test 09/27/16 05:29 Sodium Level 147 MEQ/L Potassium Level 4.3 MEQ/L Chloride Level 118 MEQ/L Carbon Dioxide Level 18.6 MEQ/L Anion Gap 10 MEQ/L Blood Urea Nitrogen 45 MG/DL Creatinine 3.05 MG/DL Estimat Glomerular Filtration 18 ML/MIN Rate Random Glucose 71 MG/DL Calcium Level 9.0 MG/DL Magnesium Level 1.9 MG/DL Assessment and Plan Problem List: (1) Accelerated hypertension (2) Dehydration (3) ARF (acute renal failure) (4) [id number]-[id number] kidney injury Assessment and Plan 1.) HTN - worse off nifedipine 90 qd, coreg 12.5 bid, hydralazine 50 mg q8hrs, held due to tia possibly due to watershed ischemia due to relative hypotension, rec f/u neuro recommendations Tonio Puente MD Sep 27, 2016 16:06
--- NOTE | 2016-09-27 17:24 | HHI.PR ---
Subjective Remarks 71 YOAA female with HTN,PHTN,mild sob Breathing better family at BS Awake, follows commands has NGT Daughter at BS Objective Vital Signs Vital Signs Date Time Temp Pulse Resp B/P Pulse Ox O2 Delivery O2 Flow Rate FiO2 09/27/16 16:00 98.5 64 17 150/83 93 09/27/16 12:48 95 Room Air 09/27/16 12:44 58 16 128/64 95 09/27/16 12:00 99.1 72 17 229/112 96 09/27/16 10:17 92 Nasal Cannula 3.00 09/27/16 08:00 79 09/27/16 08:00 98.0 80 18 199/98 93 200/102 09/27/16 06:43 200/102 09/27/16 04:00 98.7 81 19 220/110 96 09/27/16 00:00 98.2 78 19 210/82 94 09/26/16 20:00 98.0 67 19 220/110 96 09/26/16 20:00 66 09/26/16 19:00 Nasal Cannula 4.00 09/26/16 18:10 92 Nasal Cannula 3.00 I/O 09/26/16 09/26/16 09/26/16 09/27/16 09/27/16 09/27/16 07:00 15:00 23:00 07:00 15:00 23:00 Intake Total 1367 ml 556 ml 0 ml 700 ml 2652 ml Balance 1367 ml 556 ml 0 ml 700 ml 2652 ml Intake Oral 0 ml 0 ml 0 ml 0 ml 0 ml IV Total 1367 ml 556 ml 700 ml 2652 ml # Voids 3 5 4 4 3 # Bowel Movements 0 0 0 Result Diagram: 09/25/16 1100 09/27/16 0529 Objective Remarks GENERAL: Elderly female,NAD SKIN: Warm and dry. HEAD: Normocephalic. EYES: No scleral icterus. No injection or drainage. NECK: Supple, trachea midline. No JVD or lymphadenopathy. CARDIOVASCULAR: Regular rate and rhythm without murmurs, gallops, or rubs. RESPIRATORY: Breath sounds equal bilaterally. No accessory muscle use. GASTROINTESTINAL: Abdomen soft, non-tender, nondistended. MUSCULOSKELETAL: No cyanosis, or edema. BACK: Nontender without obvious deformity. No CVA tenderness. A/P Assessment and Plan PHTN Uncontrolled HTN CVA H/O Fall PLAN DW family NGT Neuro PANG underway Supplement 02 Monitor BP DW Daughter at BS Vern Castanon MD Sep 27, 2016 17:24
--- NOTE | 2016-09-27 19:40 | HHI.NPPN ---
Subjective General Problems: Anemia, Hypertension Renal Failure: Chronic, Acute, Stage IV History of Present Illness 71-year-old female with a past medical history of hypertension and history of chronic kidney disease who came to the hospital because of history of fall from the bed. The patient was admitted on September 14 and I was called to see the patient because of elevated BUN and creatinine. The patient previously has a known history of chronic kidney disease although she is not seeing any deicer repairer on a regular basis. Her creatinine a year ago in August of 2015 was 2.1, and now she was admitted with a creatinine of 2.8. Additional Remarks Patient is still not eating well, on IVF. Review of Systems General Constitutional: Fatigue Cardiovascular Cardiac: VERGARA Objective Data Data 09/26/16 09/27/16 19:00 07:00 Intake Total 556 ml 700 ml Balance 556 ml 700 ml Intake Oral 0 ml 0 ml IV Total 556 ml 700 ml # Voids 5 8 # Bowel Movements 0 Vital Signs Date Time Temp Pulse Resp B/P Pulse Ox O2 Delivery O2 Flow Rate FiO2 09/27/16 16:00 98.5 64 17 150/83 93 09/27/16 12:48 95 Room Air 09/27/16 12:44 58 16 128/64 95 09/27/16 12:00 99.1 72 17 229/112 96 09/27/16 10:17 92 Nasal Cannula 3.00 09/27/16 08:00 79 09/27/16 08:00 98.0 80 18 199/98 93 200/102 09/27/16 06:43 200/102 09/27/16 04:00 98.7 81 19 220/110 96 09/27/16 00:00 98.2 78 19 210/82 94 09/26/16 20:00 98.0 67 19 220/110 96 09/26/16 20:00 66 -: 09/25/16 1100 09/27/16 0529 Physical Exam General Appearance: No Acute Distress, Comfortable Eyes Eye Exam: Pupils Equal Throat Throat Exam: Oral Mucosa [place] & Moist Neck Neck Exam: Neck Supple Pulmonary Resp Exam: No Distress, Rhonchi, Decreased Bases, Diminished Breath Sounds Cardiology CV Exam: Regular, Normal Sinus Rhythm Gastrointestinal/Abdomen GI Exam: Soft, Non-Tender, Bowel Sounds Present Extremeties Extremities Exam: No Edema Neurologic Neuro Exam: Alert, Awake Psychiatric Psych Exam: Appropriate Responses Assessment/Plan Assessment Summary: TRUDI/Acute Renal Failure, Anemia of CKD, Hypertension, CKD Stage IV Problem List: (1) Contusion, hip (2) UTI (urinary tract infection) (3) Dehydration (4) ARF (acute renal failure) (5) Accelerated hypertension (6) Qgsbm-en-uecaaen kidney injury Plan Patient has been non oliguric. Has chronic kidney disease, possibly related to Hypertensive renal disease, Hematology input appreciated BM biopsy not planned due to comorbid condition, and stability of her disease. Also has suspected Pancreatic mass, recommended no further workup as she is not a candidate for any treatment. BP was elevated, but now slightly better. Started on ora;l diet, need to encourage to increase oral intake. Creatinine is slightly better. Danie Sanchez MD Sep 27, 2016 19:40
[2016-09-28] VITALS (7 sets, daily range): BP systolic 110–223; BP diastolic 63–104; PULSE 56–69; RESP 17–18; TEMP 96.7–99.3; O2SAT 94–100
[2016-09-28] MEDS: hydrALAZINE HCL 100 MG TAB NG SCH ×3 (06:45→21:41)
--- NOTE | 2016-09-28 08:55 | PD.CARD.PN ---
Subjective Subjective Remarks alert in nad Objective Vital Signs / I&O Vital Signs Date Time Temp Pulse Resp B/P Pulse Ox O2 Delivery O2 Flow Rate FiO2 09/28/16 08:00 99.2 66 18 183/85 96 09/28/16 04:00 98.6 69 18 223/104 96 09/27/16 23:59 97.8 69 18 197/106 94 09/27/16 20:00 97.8 75 19 196/100 94 09/27/16 20:00 Room Air 09/27/16 19:47 94 Nasal Cannula 3.00 09/27/16 16:00 98.5 64 17 150/83 93 09/27/16 12:48 95 Room Air 09/27/16 12:44 58 16 128/64 95 09/27/16 12:00 99.1 72 17 229/112 96 09/27/16 10:17 92 Nasal Cannula 3.00 I/O 09/27/16 09/27/16 09/27/16 09/28/16 09/28/16 09/28/16 07:00 15:00 23:00 07:00 15:00 23:00 Intake Total 700 ml 2652 ml 236 ml 285 ml Balance 700 ml 2652 ml 236 ml 285 ml Intake Oral 0 ml 0 ml 120 ml 240 ml IV Total 700 ml 2652 ml 116 ml 45 ml # Voids 4 3 3 4 # Bowel Movements 0 Physical Exam GENERAL: SKIN: Warm and dry. HEAD: Normocephalic. EYES: No scleral icterus. No injection or drainage. NECK: Supple, trachea midline. No JVD or lymphadenopathy. CARDIOVASCULAR: Regular rate and rhythm without murmurs, gallops, or rubs. RESPIRATORY: Breath sounds equal bilaterally. No accessory muscle use. GASTROINTESTINAL: Abdomen soft, non-tender, nondistended. MUSCULOSKELETAL: No cyanosis, or edema. BACK: Nontender without obvious deformity. No CVA tenderness. Assessment and Plan Problem List: (1) Accelerated hypertension (2) Dehydration (3) ARF (acute renal failure) (4) Rnjzz-gv-btiajle kidney injury Assessment and Plan 1.) HTN - worse off nifedipine 90 qd, coreg 12.5 bid, hydralazine 50 mg q8hrs, held due to tia possibly due to watershed ischemia due to relative hypotension, rec f/u neuro recommendations; im on vacation until october 11, 2016, Tonio Arechiga MD Sep 28, 2016 08:55
[2016-09-28] MEDS: SORBITOL 70% SOLN 30 ML CUP NG SCH (09:00)
[2016-09-28] MEDS: CARVEDILOL 12.5 MG TAB NG SCH ×2 (09:01→21:41)
[2016-09-28] MEDS: SODIUM CHLORIDE 0.9% FLUSH 5 ML FLUSH FLUSH SCH ×2 (09:01→21:41)
[2016-09-28] MEDS: ASPIRIN EC 81 MG TABEC PO SCH (09:01)
[2016-09-28] MEDS: NIFEdipine 90 MG SUSTAINED RELEASE TAB PO SCH (09:01)
[2016-09-28] MEDS: SODIUM BICARBONATE 650 MG TAB NG SCH ×2 (09:02→21:41)
[2016-09-28] MEDS: HEPARIN SODIUM - SQ 10,000 UNITS/ML VIAL SQ SCH ×2 (09:02→21:41)
--- NOTE | 2016-09-28 11:27 | HHI.PR ---
Subjective Remarks 71 YOAA female with HTN,PHTN,mild sob Breathing better family at BS Awake, follows commands NGTremoved Weak, tired Objective Vital Signs Vital Signs Date Time Temp Pulse Resp B/P Pulse Ox O2 Delivery O2 Flow Rate FiO2 09/28/16 08:07 69 09/28/16 08:00 99.2 66 18 183/85 96 09/28/16 04:00 98.6 69 18 223/104 96 09/27/16 23:59 97.8 69 18 197/106 94 09/27/16 20:00 97.8 75 19 196/100 94 09/27/16 20:00 Room Air 09/27/16 19:47 94 Nasal Cannula 3.00 09/27/16 16:00 98.5 64 17 150/83 93 09/27/16 12:48 95 Room Air 09/27/16 12:44 58 16 128/64 95 09/27/16 12:00 99.1 72 17 229/112 96 I/O 09/27/16 09/27/16 09/27/16 09/28/16 09/28/16 09/28/16 07:00 15:00 23:00 07:00 15:00 23:00 Intake Total 700 ml 2652 ml 236 ml 285 ml Balance 700 ml 2652 ml 236 ml 285 ml Intake Oral 0 ml 0 ml 120 ml 240 ml IV Total 700 ml 2652 ml 116 ml 45 ml # Voids 4 3 3 4 # Bowel Movements 0 Result Diagram: 09/25/16 1100 09/27/16 0529 Objective Remarks GENERAL: Elderly female,NAD SKIN: Warm and dry. HEAD: Normocephalic. EYES: No scleral icterus. No injection or drainage. NECK: Supple, trachea midline. No JVD or lymphadenopathy. CARDIOVASCULAR: Regular rate and rhythm without murmurs, gallops, or rubs. RESPIRATORY: Breath sounds equal bilaterally. No accessory muscle use. GASTROINTESTINAL: Abdomen soft, non-tender, nondistended. MUSCULOSKELETAL: No cyanosis, or edema. BACK: Nontender without obvious deformity. No CVA tenderness. A/P Assessment and Plan PHTN Uncontrolled HTN CVA H/O Fall PLAN DW family Neuro PANG underway Supplement 02 Monitor BP Vern Castanon MD Sep 28, 2016 11:26
--- NOTE | 2016-09-28 12:32 | HHI.NPPN ---
Subjective General Problems: Anemia, Hypertension Renal Failure: Chronic, Acute, Stage IV History of Present Illness 71-year-old female with a past medical history of hypertension and history of chronic kidney disease who came to the hospital because of history of fall from the bed. The patient was admitted on September 14 and I was called to see the patient because of elevated BUN and creatinine. The patient previously has a known history of chronic kidney disease although she is not seeing any professor of biological sciences on a regular basis. Her creatinine a year ago in August of 2015 was 2.1, and now she was admitted with a creatinine of 2.8. Additional Remarks Patient is alert, clinically same, not in distress. Review of Systems General Constitutional: Fatigue Cardiovascular Cardiac: VERGARA Objective Data Data 09/27/16 09/28/16 19:00 07:00 Intake Total 2652 ml 521 ml Balance 2652 ml 521 ml Intake Oral 0 ml 360 ml IV Total 2652 ml 161 ml # Voids 3 7 # Bowel Movements 0 Vital Signs Date Time Temp Pulse Resp B/P Pulse Ox O2 Delivery O2 Flow Rate FiO2 09/28/16 12:00 98.2 56 17 110/63 95 09/28/16 08:07 69 09/28/16 08:00 99.2 66 18 183/85 96 09/28/16 04:00 98.6 69 18 223/104 96 09/27/16 23:59 97.8 69 18 197/106 94 09/27/16 20:00 97.8 75 19 196/100 94 09/27/16 20:00 Room Air 09/27/16 19:47 94 Nasal Cannula 3.00 09/27/16 16:00 98.5 64 17 150/83 93 09/27/16 12:48 95 Room Air 09/27/16 12:44 58 16 128/64 95 -: 09/25/16 1100 09/27/16 0529 Physical Exam General Appearance: No Acute Distress, Comfortable Eyes Eye Exam: Pupils Equal Throat Throat Exam: Oral Mucosa Virgie & Moist Neck Neck Exam: Neck Supple Pulmonary Resp Exam: No Distress, Rhonchi, Decreased Bases, Diminished Breath Sounds Cardiology CV Exam: Regular, Normal Sinus Rhythm Gastrointestinal/Abdomen GI Exam: Soft, Non-Tender, Bowel Sounds Present Extremeties Extremities Exam: No Edema Neurologic Neuro Exam: Alert, Awake Psychiatric Psych Exam: Appropriate Responses Assessment/Plan Assessment Summary: TRUDI/Acute Renal Failure, Anemia of CKD, Hypertension, CKD Stage IV Problem List: (1) Contusion, hip (2) UTI (urinary tract infection) (3) Dehydration (4) ARF (acute renal failure) (5) Accelerated hypertension (6) Saula-ie-jxcrxnz kidney injury Plan Patient has been non oliguric. Has chronic kidney disease, possibly related to Hypertensive renal disease, Hematology input appreciated BM biopsy not planned due to comorbid condition, and stability of her disease. Also has suspected Pancreatic mass, recommended no further workup as she is not a candidate for any treatment. BP is better. Palliative care following, prognosis is not good. No new BMP. Danie Sanchez MD Sep 28, 2016 12:32
--- NOTE | 2016-09-28 13:03 | HHI.HCPN ---
Reason for visit a. To assist with evaluation and management of symptoms including: dysphagia , weakness, confusion b. To assist medical decision maker(s) with: better understanding of current medical conditions; weighing benefits/burdens of medical treatment options; making medical treatment decisions. . Subjective/Interval History Ms. Noel is a 71 year old female admitted on 09/14/16 for management of UTI, acute on chronic kidney injury and uncontrolled hypertension. Blood pressures remain high in spite of intervention. On 09/25 a stroke alert was called. She has had multiple TIA's in the past. NGT is now removed and she has a tray of pureed foods in front of her. While she is awake and alert, she is slow to respond and is considerably lethargic compared to her status prior tot he recent stroke. Her grandson is present - advised him, that he will likely need to feed her. She denies hunger. Per [place] statutes, in the absence of written advanced directives healthcare proxy decision making falls to the majority of the patient's 9 children, if they chose to participate in decision making. At this point most of the children have been contacted. 6 agree to participate in decision making --- It appears that discharge plans are for [facility] rehab. . Advance Directives Advance Directive Specifics Health Care Surrogate(s): No designated HCS. [place] Statue requires 50% agreement of adult children willing to participate in to agree in health care decisions. Carmen (daughter) [phone] - living with this daughterbelieve she has paperwork indicating she is health care surrogate. She is listed as next of kin person to contact in the clinical record. She has been the primary caregiver. Leti (daughter)[phone] - lives across the street. Assists in her care. Germán (son/eldest) [phone] lives in [place] - felt to be the "boss" in the family Scotty (son). [phone] - lives in [place], [place] Kameron (son) [phone] - lives in [place], [place] Tae (daughter). [phone] - lives in [facility] These members are not available or have opted out. Donnie (son) [phone] - lives in [facility] - unable to reach Yousif Bernardo (son) [phone] - lives in [facility] are opted out on decision making Anthony (son) [phone] lives in [place], [place] - opted out on decision making Yanci (Doris-daughter) - [phone] - opted out lives in [place], [place] Documented care wishes: Family are in agreement with alternative code status. CPR without intubation. Objective Vital Signs Date Time Temp Pulse Resp B/P Pulse Ox O2 Delivery O2 Flow Rate FiO2 09/28/16 12:00 98.2 56 17 110/63 95 09/28/16 08:07 69 09/28/16 08:00 99.2 66 18 183/85 96 09/28/16 04:00 98.6 69 18 223/104 96 09/27/16 23:59 97.8 69 18 197/106 94 09/27/16 20:00 97.8 75 19 196/100 94 09/27/16 20:00 Room Air 09/27/16 19:47 94 Nasal Cannula 3.00 09/27/16 16:00 98.5 64 17 150/83 93 Intake & Output 09/28/16 09/28/16 07:00 19:00 Intake Total 521 ml Balance 521 ml Intake Oral 360 ml IV Total 161 ml # Voids 7 Physical Exam CONSTITUTIONAL/GENERAL: Patient is a 71-year-old female status post stroke awake and alert, but considerably lethargic compared to last week. . TUBES/LINES/DRAINS: French catheter, nasal cannula, IV lines, SKIN: No jaundice, rashes, or lesions. Skin temperature appropriate. Not diaphoretic. HEAD: Atraumatic. Normocephalic. EYES: Pupils equal and round and reactive. No scleral icterus. No injection or drainage. ENT: Hearing grossly normal. NECK: Trachea midline. Supple, nontender. CARDIOVASCULAR: Regular rate and rhythm without murmurs, gallops, or rubs. No JVD. Peripheral pulses symmetric. RESPIRATORY/CHEST: Symmetric, unlabored respirations. Breath sounds diminished diminished in bases bilaterally. GASTROINTESTINAL: Abdomen soft, non-tender, nondistended. Bowel sounds present. GENITOURINARY: Without palpable bladder distension. MUSCULOSKELETAL: Extremities without clubbing, cyanosis, or edema. No mottling or clubbing. LYMPHATICS: No palpable cervical or supraclavicular adenopathy. NEUROLOGICAL: Lethargic. She is awake and responds slowly but appropriately to a few questions; Significant right sided facial droop is observed. She follows some simple commands. L center rep significantly weaker than R side. PSYCHIATRIC: no anxiety evident today . Diagnostic Tests Laboratory Laboratory Tests Test 09/26/16 09/27/16 05:15 05:29 Sodium Level 146 MEQ/L 147 MEQ/L (136-145) (136-145) Potassium Level 4.1 MEQ/L 4.3 MEQ/L (3.5-5.1) (3.5-5.1) Chloride Level 117 MEQ/L 118 MEQ/L (98-107) (98-107) Carbon Dioxide Level 17.8 MEQ/L 18.6 MEQ/L (21.0-32.0) (21.0-32.0) Anion Gap 11 MEQ/L (5-15) 10 MEQ/L (5-15) Blood Urea Nitrogen 50 MG/DL (7-18) 45 MG/DL (7-18) Creatinine 3.46 MG/DL 3.05 MG/DL (0.50-1.00) (0.50-1.00) Estimat Glomerular Filtration 16 ML/MIN (>89) 18 ML/MIN (>89) Rate Random Glucose 83 MG/DL 71 MG/DL (74-106) (74-106) Calcium Level 8.7 MG/DL 9.0 MG/DL (8.5-10.1) (8.5-10.1) Magnesium Level 2.0 MG/DL 1.9 MG/DL (1.5-2.5) (1.5-2.5) Triglycerides Level 124 MG/DL (42-150) Cholesterol Level 123 MG/DL (120-200) LDL Cholesterol 47 MG/DL (0-99) HDL Cholesterol 51.3 MG/DL (40.0-60.0) Cholesterol/HDL Ratio 2.39 RATIO Result Diagram: 09/25/16 1100 09/27/16 0529 Procedures NGT placement 09/26/16 - removed 09/27/16 Assessment and Plan Disease Oriented Problem List: (1) CVA, old, cognitive deficits Comment: Functionally weak, needs moderate to maximum assistance with ADLs. (2) Malignant hypertension (arteriolar nephrosclerosis) Comment: Blood pressure elevated overnight. Coreg dose increased to 25 mg PO q 12 hours today - 09/25/16. (3) Chronic kidney disease (CKD), stage IV (severe) Comment: New findings: Hematology consult by nephrology to investigated monoclonal gammopathy versus light chain deposits (4) Uyfhc-eg-haixjjw kidney injury Comment: 09/24/16: Creatinine increased to 3.45, previously 3.16 on 09/18/16. . Symptom Scale: (1) Pain 0-10 Scale: Unable to quantify Comment: History of back problems as well as leg pain. (2) Dyspnea 0-10 Scale: 5 Comment: remains on O2 via NC (3) Dysphagia 0-10 Scale: Unable to quantify Comment: starting on pureed diet today - will need to be fed. Pertinent Non-Medical Issues Psychosocial: Lives with daughter, would need 24-hour care Spiritual: [facility] would accept it Senior Procurement Specialist visit Legal: None identified Ethical issues impacting care: None identified Important Contacts Per [place] Status - as the patient doesn't not have a designated HCS - 50% of the children need to agree in decision Carmen (daughter) [phone] - living with this daughterbelieve she has paperwork indicating she is health care surrogate. She is listed as next of kin person to contact in the clinical record. She has been the primary caregiver. Leti (daughter)[phone] - lives across the street. Assists in her care. Germán (son/eldest) [phone] lives in [place] - felt to be the "boss" in the family Scotty (son). [phone] - lives in [place], [place] Kameron (son) [phone] - lives in [place], [place] Tae (daughter). [phone] - lives in [facility] Ed (son) [phone] - lives in [facility] - unable to reach Yousif Bernardo (son) [phone] - lives in [facility] are opted out on decision making Anthony (son) [phone] lives in [place], [place] - opted out on decision making Yanci (Doris-daughter) - [phone] - opted out lives in [place], [place] Prognosis At this time Prognosis is fair. She has had CVA and TIAswith recent TIA showing L side facail droop and L side weakness , advancing chronic kidney disease stage IV and she has poorly controlled blood pressure, that at some future point may result in worsening kidney disease and or the eventuality of another stroke rendering her more debilitated than what she is. Code Status: Alternative Code (CPR - compressions, shock, ALCS drugs - NO chest compressions) Plan = ALTERNATE CODE - NO INTUBATION = Decision Maker: Pending clarification Carmen (daughter) [phone] - documentation designating patient's daughter has not been found at this point in time. Per [place] statutes, in the absence of written advanced directives healthcare proxy decision making will fall to the majority of the patient's 9 adult children. = Attempting to contact patient's children to determine who wishes to be involved in healthcare proxy decision making. Patient's sons, Yousif and Tim , have opted out of health care proxy decision-making. = A stroke alert on 09/26/16 - Blood pressures are still poorly managed . No acute event identifed in recent diagnostics. . = Symptom management-dysphagia: Patient developed s/s dysphagia this am, a stroke alert was subsequently called. Speech therapy was consulted for a swallow evaluation-patient will remain NPO at this time. . Attestation To help prompt me to consider important information that might be impacting today's encounter and assessment, information from prior notes written by myself or my colleagues may have been "brought forward" into today's note. My signature on this note, however, is an attestation that I personally performed the exam, history, and/or decision-making noted today, and, unless otherwise indicated, the interactions with patient, family, and staff as well as the review of records all occurred today. I also attest that the listed assessment and stated plan reflect my best clinical judgment today based on the combination of historical information, prior notes, and today's exam/ interactions. When time spent is documented, it refers only to time spent today by the signer, or if indicated, combined time spent today by collaborating physician/nurse practitioner. Jessica Lemus Sep 28, 2016 13:02
[2016-09-28 13:05] LABS: BICARBONATE 19.4 MEQ/L (21.0-32.0); MAGNESIUM 1.9 MG/DL (1.5-2.5); POTASSIUM 4.5 MEQ/L (3.5-5.1)
--- NOTE | 2016-09-28 15:03 | HHI.PR ---
Subjective Remarks Follow-up for CVA. Patient denies any headache or dizziness. She states that she's been eating okay. She wants to try to be better since she doesn't have to get a PEG tube. Objective Vitals Vital Signs Date Time Temp Pulse Resp B/P Pulse Ox O2 Delivery O2 Flow Rate FiO2 09/28/16 12:00 98.2 56 17 110/63 95 09/28/16 08:07 69 09/28/16 08:00 99.2 66 18 183/85 96 09/28/16 04:00 98.6 69 18 223/104 96 09/27/16 23:59 97.8 69 18 197/106 94 09/27/16 20:00 97.8 75 19 196/100 94 09/27/16 20:00 Room Air 09/27/16 19:47 94 Nasal Cannula 3.00 09/27/16 16:00 98.5 64 17 150/83 93 I/O 09/27/16 09/27/16 09/27/16 09/28/16 09/28/16 09/28/16 07:00 15:00 23:00 07:00 15:00 23:00 Intake Total 700 ml 2652 ml 236 ml 285 ml 100 ml Balance 700 ml 2652 ml 236 ml 285 ml 100 ml Intake Oral 0 ml 0 ml 120 ml 240 ml 100 ml IV Total 700 ml 2652 ml 116 ml 45 ml # Voids 4 3 3 4 4 # Bowel Movements 0 0 Result Diagram: 09/25/16 1100 09/28/16 1228 Imaging Last Impressions Abdomen X-Ray 09/27/16 0000 Signed Impressions: Service Date/Time: September 00:55 - CONCLUSION: 1. NG tube in the expected location of the gastric lumen. 2. Bibasilar effusion/atelectasis. Charlie Babb MD Head CT 09/25/16 0000 Signed Impressions: Service Date/Time: Sunday, September 25, 2016 11:24 - CONCLUSION: 1. Stable noncontrast head CT. No acute intracranial abnormality is identified. 2. Chronic changes include generalized atrophy and moderate severity periventricular white matter low-attenuation characteristic of chronic microvascular ischemia. Sanket Weeks MD Carotid Artery Ultrasound 09/25/16 0000 Signed Impressions: Service Date/Time: Sunday, September 25, 2016 22:39 - CONCLUSION: 1. Calcified atherosclerotic plaquing in both carotid bulbs extending into the bifurcations. 2. Doppler velocities and ratios suggest a less than 50%% stenosis in the left internal carotid. 3. No significant stenosis on the right. Antegrade flow in both vertebral arteries. Charlie Babb MD Brain MRI 09/25/16 Signed Impressions: Service Date/Time: Sunday, September 25, 2016 15:01 - CONCLUSION: 1. Examination is severely degraded by motion artifact. 2. There is a punctate area of suspected restricted diffusion in the right parietal subcortical white matter in the mid convexity. This may represent a focal area of ischemia. 3. Background severe periventricular and subcortical white matter signal change characteristic of chronic microvascular ischemia. Sanket Weeks MD Chest X-Ray 09/18/16 Signed Impressions: Service Date/Time: Sunday, September 18, 2016 22:55 - CONCLUSION: 1. Bilateral mostly basilar airspace disease with cardiomegaly. Differential diagnosis includes mild edema and atelectasis/consolidation. Riky Elmore MD Hip and Pelvis X-Ray 09/14/16633 Signed Impressions: Service Date/Time: Wednesday, September 14, 2016 07:09 - CONCLUSION: Osteopenia. No acute abnormality. Fito Diaz Jr., MD Femur X-Ray 09/14/1634 Signed Impressions: Service Date/Time: Wednesday, September 14, 2016 07:12 - CONCLUSION: No acute abnormality. Fito Diaz Jr., MD Renal Ultrasound 09/14/16 Signed Impressions: Service Date/Time: Wednesday, September 14, 2016 10:20 - CONCLUSION: 1. Increased echogenicity of the renal parenchyma. This is usually associated with chronic medical renal disease. 2. Mild hydronephrosis of the left collecting system. 3. Benign appearing left renal cysts. 4. Possible nonobstructing right kidney stone. Recommend noncontrast CT abdomen as clinically indicated. Elías Mares MD Abdomen/Pelvis CT 09/14/16 Signed Impressions: Service Date/Time: Wednesday, September 14, 2016 19:43 - CONCLUSION: 1. No stones , hydronephrosis or other acute abnormalities seen of the kidneys. 2. Suspected mass of the pancreatic head. Further attempted characterization with a nonemergent contrast enhanced study is recommended, preferably abdomen MRI. 3. Severe chronic vascular disease. 4. Mild airspace opacities of both visualized lung bases. 5. Panchamber enlargement of the heart and coronary artery calcification. Sanket Marinelli MD Objective Remarks GENERAL: Well-developed well-nourished. In no acute distress. SKIN: Warm and dry. No lesions noted. HEENT: Normocephalic. Pupils equal and round. Mucous membranes pink and moist. CARDIOVASCULAR: Regular rate and rhythm. No murmur appreciated. RESPIRATORY: No accessory muscle use. Clear to auscultation. Breath sounds equal bilaterally. GASTROINTESTINAL: Abdomen soft, non-tender, nondistended. Bowel sounds x4. MUSCULOSKELETAL: No obvious deformities. No clubbing or cyanosis. No edema. NEUROLOGICAL: Awake and alert. Right facial droop. Bilateral lower extremity weakness, left worse than right. Slurred speech. PSYCHIATRIC: Appropriate mood and affect; insight and judgment limited. Procedures None Date of Insertion: Sep 14, 2016 Date of Removal: Sep 16, 2016 A/P Problem List: (1) Accelerated hypertension ICD Code: I10 Status: Acute Assessment and Plan 70-year-old female with history of hypertension, edema, CKD, weakness presents after falling out the bed last night 09/13. Stroke alert 09/25: Neurology was consulted. TIA vs CVA. MRI with changes in the right parietal suggestive of ischemia. Status post Permissive hypertension. LDL 47. A1c 5.3. PT/OT/ST. Continue aspirin. Neurochecks. Echocardiogram EF of 60% . Improving mental status Generalized weakness/fatigue with encephalopathy: likely multifactorial secondary to hypertensive encephalopathy, dehydration, and recent fall. See treatment below. Head CT with old ischemic changes, no acute findings. Consult PT/OT/ST. Hypertensive Encephalopathy secondary to Accelerated HTN: BP 200/106 upon arrival. Holding off on SHELL/ARB secondary to TRUDI/CKD. Uncontrolled secondary to permissive hypertension but has been cleared to restart BP medications by neurology. Restarted Coreg, nifedipine, hydralazine in addition to clonidine with hold parameters. BP improving, monitor and adjust meds as needed. Possible CHF Exacerbation: BNP elevated at 990. CXR with mild cardiomegaly, no acute findings. Trace BLE edema. Echo 09/06/15 showed normal systolic function EF 55-60%, mild MR, mild TR, mild to mod increased pulmonary arterial pressure. 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 Elevated Troponins: no complaints of chest pain.Trended enzymes are flat at 0.22 , 0.19, 0.19. EKG with no acute ST elevation/depression. Consulted cardiology. Monitor on telemetry. TRUDI on CKD, stage III: hypertensive renal disease. TRUDI secondary to dehydration with decreased recent oral intake. Given IVF, DC. Avoid nephrotoxins. No improvement, consulted nephrology, appreciate input. Follow up BMP. Per hematology, unlikely multiple myeloma, defer bone biopsy for now given patient' s comorbidities, monitor for now, follow-up as outpatient. Pancreatic mass on CT of abdomen without contrast: marker studies normal. Oncology consulted. She is not a candidate for treatment (surgery, radiation, chemotherapy) should she have a pancreatic cancer. Recommended continued supportive care. Pulmonary Hypertension: seen on previous echo as above. Consulted pulmonology and cardiology, appreciate input. Follow-up as outpatient. Fall, Hip Pain: pt fell out of bed prior to arrival. CPK wnl. Hip/pelvis and femur xray negative for fracture. Patient needs rehabilitation, consult case management FEN: TF and by mouth. Aspiration precautions. May need mittens. Consulted dietitian DVT Prophylaxis: heparin sq Written by Ankur Lizarraga, acting as scribe for Dr. Louis on 09/28/16 at 14:57. All or portions of this note were transcribed by scribe []. I, Dr. Dwain Louis personally performed the history, physical exam, and medical decision making; and confirmed the accuracy of the information in the transcribed note. Authenticated by Dr. Dwain Louis on 09/28/16 at 15:47. Discharge Planning Hopefully discharge to SNF or [facility] soon. No SNF benefits. CIR wants repeat calorie ct Ankur Lizarraga Sep 28, 2016 15:03 Dwain Louis MD Sep 28, 2016 15:48
[2016-09-29] VITALS (9 sets, daily range): BP systolic 89–173; BP diastolic 52–90; PULSE 55–70; RESP 17–19; TEMP 96.3–98.2; O2SAT 95–97
[2016-09-29] MEDS: hydrALAZINE HCL 100 MG TAB NG SCH ×3 (06:05→20:59)
[2016-09-29] MEDS: CARVEDILOL 12.5 MG TAB NG SCH ×2 (08:06→20:59)
[2016-09-29] MEDS: NIFEdipine 90 MG SUSTAINED RELEASE TAB PO SCH (08:06)
[2016-09-29] MEDS: ASPIRIN EC 81 MG TABEC PO SCH (08:06)
[2016-09-29] MEDS: SODIUM BICARBONATE 650 MG TAB NG SCH ×2 (08:06→20:59)
[2016-09-29] MEDS: HEPARIN SODIUM - SQ 10,000 UNITS/ML VIAL SQ SCH ×2 (08:07→20:59)
[2016-09-29] MEDS: SODIUM CHLORIDE 0.9% FLUSH 5 ML FLUSH FLUSH SCH ×2 (08:07→21:00)
[2016-09-29] MEDS: SORBITOL 70% SOLN 30 ML CUP NG SCH (08:07)
--- NOTE | 2016-09-29 12:37 | HHI.PR ---
Subjective Remarks Follow-up for CVA. RN and patient's family at bedside. They've and documented the patient was not eating much for meals. Patient's family insisted that she eats much better at night and had quite a bit of different foods last night. Patient and family educated not to get out of bed without adequate assistance due to safety. Objective Vitals Vital Signs Date Time Temp Pulse Resp B/P Pulse Ox O2 Delivery O2 Flow Rate FiO2 09/29/16 12:00 97.7 55 18 89/57 96 09/29/16 09:48 96 21 09/29/16 08:00 98.2 70 18 173/90 95 09/29/16 04:00 98.2 68 18 157/80 95 09/29/16 00:00 96.3 60 18 154/78 96 09/28/16 20:00 94 Nasal Cannula 2.00 09/28/16 20:00 99.3 62 18 138/79 94 09/28/16 20:00 62 09/28/16 17:44 99 Nasal Cannula 3.00 09/28/16 16:00 96.7 56 17 129/69 100 I/O 09/28/16 09/28/16 09/28/16 09/29/16 09/29/16 09/29/16 07:00 15:00 23:00 07:00 15:00 23:00 Intake Total 285 ml 462 ml 600 ml 120 ml Balance 285 ml 462 ml 600 ml 120 ml Intake Oral 240 ml 100 ml 600 ml 120 ml IV Total 45 ml 362 ml # Voids 4 4 1 3 # Bowel Movements 0 0 0 Result Diagram: 09/25/16 1100 09/28/16 1228 Imaging Last Impressions Abdomen X-Ray 09/27/16 0000 Signed Impressions: Service Date/Time: September 00:55 - CONCLUSION: 1. NG tube in the expected location of the gastric lumen. 2. Bibasilar effusion/atelectasis. Charlie Babb MD Head CT 09/25/16 0000 Signed Impressions: Service Date/Time: Sunday, September 25, 2016 11:24 - CONCLUSION: 1. Stable noncontrast head CT. No acute intracranial abnormality is identified. 2. Chronic changes include generalized atrophy and moderate severity periventricular white matter low-attenuation characteristic of chronic microvascular ischemia. Sanket Weeks MD Carotid Artery Ultrasound 09/25/16 Signed Impressions: Service Date/Time: Sunday, September 25, 2016 22:39 - CONCLUSION: 1. Calcified atherosclerotic plaquing in both carotid bulbs extending into the bifurcations. 2. Doppler velocities and ratios suggest a less than 50%% stenosis in the left internal carotid. 3. No significant stenosis on the right. Antegrade flow in both vertebral arteries. Charlie Babb MD Brain MRI 09/25/16 Signed Impressions: Service Date/Time: Sunday, September 25, 2016 15:01 - CONCLUSION: 1. Examination is severely degraded by motion artifact. 2. There is a punctate area of suspected restricted diffusion in the right parietal subcortical white matter in the mid convexity. This may represent a focal area of ischemia. 3. Background severe periventricular and subcortical white matter signal change characteristic of chronic microvascular ischemia. Sanket Weeks MD Chest X-Ray 09/18/16 Signed Impressions: Service Date/Time: Sunday, September 18, 2016 22:55 - CONCLUSION: 1. Bilateral mostly basilar airspace disease with cardiomegaly. Differential diagnosis includes mild edema and atelectasis/consolidation. Riky Elmore MD Hip and Pelvis X-Ray 09/14/16 0634 Signed Impressions: Service Date/Time: Wednesday, September 14, 2016 07:09 - CONCLUSION: Osteopenia. No acute abnormality. Fito Diaz Jr., MD Femur X-Ray 09/14/16 0634 Signed Impressions: Service Date/Time: Wednesday, September 14, 2016 07:12 - CONCLUSION: No acute abnormality. Fito Diaz Jr., MD Renal Ultrasound 09/14/16 Signed Impressions: Service Date/Time: Wednesday, September 14, 2016 10:20 - CONCLUSION: 1. Increased echogenicity of the renal parenchyma. This is usually associated with chronic medical renal disease. 2. Mild hydronephrosis of the left collecting system. 3. Benign appearing left renal cysts. 4. Possible nonobstructing right kidney stone. Recommend noncontrast CT abdomen as clinically indicated. Elías Mares MD Abdomen/Pelvis CT 09/14/16 Signed Impressions: Service Date/Time: Wednesday, September 14, 2016 19:43 - CONCLUSION: 1. No stones , hydronephrosis or other acute abnormalities seen of the kidneys. 2. Suspected mass of the pancreatic head. Further attempted characterization with a nonemergent contrast enhanced study is recommended, preferably abdomen MRI. 3. Severe chronic vascular disease. 4. Mild airspace opacities of both visualized lung bases. 5. Panchamber enlargement of the heart and coronary artery calcification. Sanket Marinelli MD Objective Remarks GENERAL: Well-developed well-nourished. In no acute distress. SKIN: Warm and dry. No lesions noted. HEENT: Normocephalic. Pupils equal and round. Mucous membranes pink and moist. CARDIOVASCULAR: Regular rate and rhythm. No murmur appreciated. RESPIRATORY: No accessory muscle use. Clear to auscultation. Breath sounds equal bilaterally. GASTROINTESTINAL: Abdomen soft, non-tender, nondistended. Bowel sounds x4. MUSCULOSKELETAL: No obvious deformities. No clubbing or cyanosis. No edema. NEUROLOGICAL: Awake and alert. Left facial weakness with right drooping. Bilateral lower extremity weakness, left worse than right. Slurred speech. PSYCHIATRIC: Appropriate mood and affect; insight and judgment limited. Procedures None Date of Insertion: Sep 14, 2016 Date of Removal: Sep 16, 2016 A/P Problem List: (1) Accelerated hypertension ICD Code: I10 Status: Acute Assessment and Plan 70-year-old female with history of hypertension, edema, CKD, weakness presents after falling out the bed last night 09/13. Stroke alert 09/25: Neurology was consulted. TIA vs CVA. MRI with changes in the right parietal suggestive of ischemia. S/P permissive hypertension. LDL 47. A1c 5.3. PT/OT/ST. Continue aspirin. Neurochecks. Echocardiogram EF of 60% . Improving mental status. Generalized weakness/fatigue with encephalopathy: likely multifactorial secondary to hypertensive encephalopathy, dehydration, and recent fall. See treatment below. Head CT with old ischemic changes, no acute findings. PT/OT/ ST. Hypertensive Encephalopathy secondary to Accelerated HTN: BP 200/106 upon arrival. Holding off on SHELL/ARB secondary to TRUDI/CKD. Uncontrolled secondary to permissive hypertension but has been cleared to restart BP medications by neurology. Restarted Coreg, nifedipine, hydralazine. Clonidine patch added, BP labile, DC clonidine for now. Monitor and adjust meds as needed. Possible CHF Exacerbation: BNP elevated at 990. CXR with mild cardiomegaly, no acute findings. Trace BLE edema. Echo 09/06/15 showed normal systolic function EF 55-60%, mild MR, mild TR, mild to mod increased pulmonary arterial pressure. 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 Elevated Troponins: no complaints of chest pain. Trended enzymes were flat at 0.22, 0.19, 0.19. EKG with no acute ST elevation/depression. Consulted cardiology. Monitor on telemetry. TRUDI on CKD, stage III: hypertensive renal disease. TRUDI secondary to dehydration with decreased recent oral intake. Given IVF, DC. Avoid nephrotoxins. No improvement, consulted nephrology, appreciate input. Follow up BMP. Per hematology, unlikely multiple myeloma, defer bone biopsy for now given patient' s comorbidities, monitor for now, follow-up as outpatient. Pancreatic mass on CT of abdomen without contrast: marker studies normal. Oncology consulted. She is not a candidate for treatment (surgery, radiation, chemotherapy) should she have a pancreatic cancer. Recommended continued supportive care. Pulmonary Hypertension: seen on previous echo as above. Consulted pulmonology and cardiology, appreciate input. Follow-up as outpatient. Fall, Hip Pain: pt fell out of bed prior to arrival. CPK wnl. Hip/pelvis and femur xray negative for fracture. Patient needs rehabilitation, consult case management FEN: Removed feeding tube. Continue oral intake. Aspiration precautions. May need mittens. Consulted dietitian for calorie count. DVT Prophylaxis: heparin sq Written by Ankur Lizarraga, acting as scribe for Dr. Louis on 09/29/16 at 12:36. All or portions of this note were transcribed by scribe []. I, Dr. Dwain Louis personally performed the history, physical exam, and medical decision making; and confirmed the accuracy of the information in the transcribed note. Authenticated by Dr. Dwain Louis on 09/29/16 at 14:05. Discharge Planning Monitor oral intake. Monitor BP. Hopefully discharge to SNF or [facility] Ankur Lizarraga Sep 29, 2016 12:36 Dwain Louis MD Sep 29, 2016 14:06
--- NOTE | 2016-09-29 13:36 | HHI.NPPN ---
Subjective General Problems: Anemia, Hypertension Renal Failure: Chronic, Acute, Stage IV History of Present Illness 71-year-old female with a past medical history of hypertension and history of chronic kidney disease who came to the hospital because of history of fall from the bed. The patient was admitted on September 14 and I was called to see the patient because of elevated BUN and creatinine. The patient previously has a known history of chronic kidney disease although she is not seeing any teacher vocal on a regular basis. Her creatinine a year ago in August of 2015 was 2.1, and now she was admitted with a creatinine of 2.8. Additional Remarks Patient resting in bed, with family. No signs of distress Review of Systems General Constitutional: Fatigue Cardiovascular Cardiac: VERGARA Objective Data Data 09/28/16 09/29/16 19:00 07:00 Intake Total 462 ml 720 ml Balance 462 ml 720 ml Intake Oral 100 ml 720 ml IV Total 362 ml # Voids 4 4 # Bowel Movements 0 0 Vital Signs Date Time Temp Pulse Resp B/P Pulse Ox O2 Delivery O2 Flow Rate FiO2 09/29/16 12:00 97.7 55 18 89/57 96 09/29/16 09:48 96 21 09/29/16 08:00 98.2 70 18 173/90 95 09/29/16 04:00 98.2 68 18 157/80 95 09/29/16 00:00 96.3 60 18 154/78 96 09/28/16 20:00 94 Nasal Cannula 2.00 09/28/16 20:00 99.3 62 18 138/79 94 09/28/16 20:00 62 09/28/16 17:44 99 Nasal Cannula 3.00 09/28/16 16:00 96.7 56 17 129/69 100 -: 09/25/16 1100 09/28/16 1228 Physical Exam General Appearance: No Acute Distress, Comfortable Eyes Eye Exam: Pupils Equal Throat Throat Exam: Oral Mucosa [place] & Moist Neck Neck Exam: Neck Supple Pulmonary Resp Exam: No Distress, Rhonchi, Decreased Bases, Diminished Breath Sounds Cardiology CV Exam: Regular, Normal Sinus Rhythm Gastrointestinal/Abdomen GI Exam: Soft, Non-Tender, Bowel Sounds Present Extremeties Extremities Exam: No Edema Neurologic Neuro Exam: Alert, Awake Psychiatric Psych Exam: Appropriate Responses Assessment/Plan Assessment Summary: TRUDI/Acute Renal Failure, Anemia of CKD, Hypertension, CKD Stage IV Problem List: (1) Contusion, hip (2) UTI (urinary tract infection) (3) Dehydration (4) ARF (acute renal failure) (5) Accelerated hypertension (6) [id number] kidney injury Plan Patient has been non oliguric. Has chronic kidney disease, possibly related to Hypertensive renal disease, Hematology input appreciated BM biopsy not planned due to comorbid condition, and stability of her disease. Also has suspected Pancreatic mass, recommended no further workup as she is not a candidate for any treatment. Creatinine stable: 3.4 -> 3.0 -> 3.4. If increased creatinine tomorrow, may consider IVFs. Follow BP - lower reading at noon today. Continue meds for now. Palliative care following Favian Neal MD Sep 29, 2016 13:36
--- NOTE | 2016-09-29 13:46 | HHI.PR ---
Subjective Remarks pt denies chest pain Objective Vital Signs Date Time Temp Pulse Resp B/P Pulse Ox O2 Delivery O2 Flow Rate FiO2 09/29/16 12:00 97.7 55 18 89/57 96 09/29/16 09:48 96 21 09/29/16 08:00 98.2 70 18 173/90 95 09/29/16 04:00 98.2 68 18 157/80 95 09/29/16 00:00 96.3 60 18 154/78 96 09/28/16 20:00 94 Nasal Cannula 2.00 09/28/16 20:00 99.3 62 18 138/79 94 09/28/16 20:00 62 09/28/16 17:44 99 Nasal Cannula 3.00 09/28/16 16:00 96.7 56 17 129/69 100 I/O 09/28/16 09/28/16 09/28/16 09/29/16 09/29/16 09/29/16 07:00 15:00 23:00 07:00 15:00 23:00 Intake Total 285 ml 462 ml 600 ml 120 ml Balance 285 ml 462 ml 600 ml 120 ml Intake Oral 240 ml 100 ml 600 ml 120 ml IV Total 45 ml 362 ml # Voids 4 4 1 3 # Bowel Movements 0 0 0 VSS CHEST: CTE HEART: S1,S2,RRR ABD: ST, NT Ext: No edema Result Diagram: 09/25/16 1100 09/28/16 1228 Assessment and Plan Assessment and Plan BP is low, Hold BB and CCB. conservative management... I will follow. Dwayne Shannon MD Sep 29, 2016 13:46
--- NOTE | 2016-09-29 15:09 | HHI.PR ---
Subjective Remarks 71 YOAA female with HTN,PHTN,mild sob Breathing better family at BS Awake, follows commands Weak, tired BP borderline Objective Vital Signs Vital Signs Date Time Temp Pulse Resp B/P Pulse Ox O2 Delivery O2 Flow Rate FiO2 09/29/16 13:56 100/52 09/29/16 12:00 97.7 55 18 89/57 96 09/29/16 09:48 96 21 09/29/16 08:00 98.2 70 18 173/90 95 09/29/16 04:00 98.2 68 18 157/80 95 09/29/16 00:00 96.3 60 18 154/78 96 09/28/16 20:00 94 Nasal Cannula 2.00 09/28/16 20:00 99.3 62 18 138/79 94 09/28/16 20:00 62 09/28/16 17:44 99 Nasal Cannula 3.00 09/28/16 16:00 96.7 56 17 129/69 100 I/O 09/28/16 09/28/16 09/28/16 09/29/16 09/29/16 09/29/16 07:00 15:00 23:00 07:00 15:00 23:00 Intake Total 285 ml 462 ml 600 ml 120 ml 100 ml Balance 285 ml 462 ml 600 ml 120 ml 100 ml Intake Oral 240 ml 100 ml 600 ml 120 ml 100 ml IV Total 45 ml 362 ml # Voids 4 4 1 3 2 # Bowel Movements 0 0 0 0 Result Diagram: 09/25/16 1100 09/28/16 1228 Objective Remarks GENERAL: Elderly female,NAD SKIN: Warm and dry. HEAD: Normocephalic. EYES: No scleral icterus. No injection or drainage. NECK: Supple, trachea midline. No JVD or lymphadenopathy. CARDIOVASCULAR: Regular rate and rhythm without murmurs, gallops, or rubs. RESPIRATORY: Breath sounds equal bilaterally. No accessory muscle use. GASTROINTESTINAL: Abdomen soft, non-tender, nondistended. MUSCULOSKELETAL: No cyanosis, or edema. BACK: Nontender without obvious deformity. No CVA tenderness. A/P Assessment and Plan PHTN Uncontrolled HTN CVA H/O Fall PLAN DW family Neuro PANG underway Supplement 02 Monitor BP Vern Castanon MD Sep 29, 2016 15:09
[2016-09-30] VITALS (9 sets, daily range): BP systolic 91–174; BP diastolic 54–92; PULSE 54–71; RESP 16–19; TEMP 95.3–97.6; O2SAT 94–98
[2016-09-30] MEDS: hydrALAZINE HCL 100 MG TAB NG SCH ×3 (06:00→21:07)
[2016-09-30 06:06] LABS: AUTOMATED NEUTROPHIL # 2.3 TH/MM3 (1.8-7.7); BASOPHIL # 0.1 TH/MM3 (0-0.2); EOSINOPHIL # 0.2 TH/MM3 (0-0.4); EOSINOPHIL % 3.6 % (0.0-4.0); HEMATOCRIT 28.4 % (35.0-46.0); HEMO FLAGS DIFF FINAL; LYMPH % 43.7 % (9.0-44.0); LYMPHOCYTE # 2.4 TH/MM3 (1.0-4.8); MEAN CELL VOLUME 87.7 FL (80.0-100.0); MEAN CORPUSCULAR HGB CONC 33.1 % (32.0-36.0); MONO % 9.9 % (0.0-8.0); NEUT % 41.8 % (16.0-70.0); PLATELET COUNT 264 TH/MM3 (150-450); RED BLOOD COUNT 3.24 MIL/MM3 (4.00-5.30); RED CELL DISTRIBUTION WIDTH 14.1 % (11.6-17.2); WHITE BLOOD COUNT 5.4 TH/MM3 (4.0-11.0)
[2016-09-30 06:14] LABS: BICARBONATE 20.5 MEQ/L (21.0-32.0); POTASSIUM 4.1 MEQ/L (3.5-5.1)
[2016-09-30] MEDS: HEPARIN SODIUM - SQ 10,000 UNITS/ML VIAL SQ SCH ×2 (08:41→21:07)
[2016-09-30] MEDS: SODIUM CHLORIDE 0.9% FLUSH 5 ML FLUSH FLUSH SCH ×2 (08:41→21:00)
[2016-09-30] MEDS: CARVEDILOL 12.5 MG TAB NG SCH ×2 (08:43→10:25)
[2016-09-30] MEDS: SORBITOL 70% SOLN 30 ML CUP NG SCH (08:44)
[2016-09-30] MEDS: SODIUM BICARBONATE 650 MG TAB NG SCH ×3 (08:44→21:07)
[2016-09-30] MEDS: ASPIRIN EC 81 MG TABEC PO SCH ×2 (08:44→10:25)
[2016-09-30] MEDS: NIFEdipine 90 MG SUSTAINED RELEASE TAB PO SCH ×2 (08:44→10:25)
[2016-09-30] MEDS ORDERED: cloNIDine HCL 0.1 MG/24 HR PATCH TD PRN (09:45)
--- NOTE | 2016-09-30 11:36 | HHI.PR ---
Subjective Remarks Follow up for CVA. The patient has no medical complaints today, states "I'm doing alright". Still with slightly slurred speech. BP elevated at 174/92. Reportedly refused BP meds this morning, now agreeable, discussed with RN. The patient is still not eating much, only ate some of her pudding this morning, discussed with RN to start calorie count. Objective Vitals Vital Signs Date Time Temp Pulse Resp B/P Pulse Ox O2 Delivery O2 Flow Rate FiO2 09/30/16 08:00 95.7 67 18 174/92 94 09/30/16 04:00 97.6 69 19 156/80 96 09/30/16 00:06 97.6 61 19 145/73 94 09/29/16 20:56 97 Room Air 09/29/16 20:00 97.0 60 19 153/72 97 09/29/16 19:55 59 09/29/16 16:00 97.3 57 17 139/76 95 09/29/16 13:56 100/52 09/29/16 12:00 97.7 55 18 89/57 96 I/O 09/29/16 09/29/16 09/29/16 09/30/16 09/30/16 09/30/16 07:00 15:00 23:00 07:00 15:00 23:00 Intake Total 120 ml 100 ml 240 ml 120 ml Balance 120 ml 100 ml 240 ml 120 ml Intake Oral 120 ml 100 ml 240 ml 120 ml # Voids 3 2 1 3 # Bowel Movements 0 0 0 0 Result Diagram: 09/30/16 0447 09/30/16 0447 Imaging Last Impressions Abdomen X-Ray 09/27/16 0000 Signed Impressions: Service Date/Time: September 00:55 - CONCLUSION: 1. NG tube in the expected location of the gastric lumen. 2. Bibasilar effusion/atelectasis. Charlie Babb MD Head CT 09/25/16 0000 Signed Impressions: Service Date/Time: Sunday, September 25, 2016 11:24 - CONCLUSION: 1. Stable noncontrast head CT. No acute intracranial abnormality is identified. 2. Chronic changes include generalized atrophy and moderate severity periventricular white matter low-attenuation characteristic of chronic microvascular ischemia. Sanket Weeks MD Carotid Artery Ultrasound 09/25/16 Signed Impressions: Service Date/Time: Sunday, September 25, 2016 22:39 - CONCLUSION: 1. Calcified atherosclerotic plaquing in both carotid bulbs extending into the bifurcations. 2. Doppler velocities and ratios suggest a less than 50%% stenosis in the left internal carotid. 3. No significant stenosis on the right. Antegrade flow in both vertebral arteries. Charlie Babb MD Brain MRI 09/25/16 Signed Impressions: Service Date/Time: Sunday, September 25, 2016 15:01 - CONCLUSION: 1. Examination is severely degraded by motion artifact. 2. There is a punctate area of suspected restricted diffusion in the right parietal subcortical white matter in the mid convexity. This may represent a focal area of ischemia. 3. Background severe periventricular and subcortical white matter signal change characteristic of chronic microvascular ischemia. Sanket Weeks MD Chest X-Ray 09/18/16 Signed Impressions: Service Date/Time: Sunday, September 18, 2016 22:55 - CONCLUSION: 1. Bilateral mostly basilar airspace disease with cardiomegaly. Differential diagnosis includes mild edema and atelectasis/consolidation. Riky Elmore MD Hip and Pelvis X-Ray 09/14/16 0634 Signed Impressions: Service Date/Time: Wednesday, September 14, 2016 07:09 - CONCLUSION: Osteopenia. No acute abnormality. Fito Diaz Jr., MD Femur X-Ray 09/14/16 0634 Signed Impressions: Service Date/Time: Wednesday, September 14, 2016 07:12 - CONCLUSION: No acute abnormality. Fito Diaz Jr., MD Renal Ultrasound 09/14/16 Signed Impressions: Service Date/Time: Wednesday, September 14, 2016 10:20 - CONCLUSION: 1. Increased echogenicity of the renal parenchyma. This is usually associated with chronic medical renal disease. 2. Mild hydronephrosis of the left collecting system. 3. Benign appearing left renal cysts. 4. Possible nonobstructing right kidney stone. Recommend noncontrast CT abdomen as clinically indicated. Elías Mares MD Abdomen/Pelvis CT 09/14/16 Signed Impressions: Service Date/Time: Wednesday, September 14, 2016 19:43 - CONCLUSION: 1. No stones , hydronephrosis or other acute abnormalities seen of the kidneys. 2. Suspected mass of the pancreatic head. Further attempted characterization with a nonemergent contrast enhanced study is recommended, preferably abdomen MRI. 3. Severe chronic vascular disease. 4. Mild airspace opacities of both visualized lung bases. 5. Panchamber enlargement of the heart and coronary artery calcification. Sanket Marinelli MD Objective Remarks GENERAL: Well-nourished, well-developed elderly female patient in NAD. More awake and alert today. SKIN: Warm and dry. No rash. HEENT: Normocephalic. Atraumatic. Pupils equal and round. No scleral icterus. No injection or drainage. Mucous membranes pink and moist. NECK: Supple. Trachea midline. CARDIOVASCULAR: Regular rate and rhythm. S1, S2 noted. No murmur appreciated. RESPIRATORY: No accessory muscle use. Clear to auscultation. Breath sounds equal bilaterally. GASTROINTESTINAL: Abdomen soft, non-tender, nondistended. Normoactive bowel sounds x4. +abdominal bruit. MUSCULOSKELETAL: No obvious deformities. No edema. NEUROLOGICAL: Awake and alert, but drowsy. No obvious cranial nerve deficits. Moving all extremities spontaneously however bilateral upper and lower extremities weak, left worse than the right. Slightly slurred and slowed speech. No obvious facial droop today. PSYCHIATRIC: Appropriate mood and affect; insight and judgment limited. Procedures None Medications and IVs Current Medications Medications (Trade) Dose Ordered Sig/Lenora Route Start Time Stop Time Status Last Admin (NS Flush) 2 ml UNSCH PRN FLUSH 09/14/16 09:30 09/19/16 01:49 (NS Flush) 2 ml BID FLUSH 09/14/16 21:00 09/30/16 08:41 (Heparin Inj) 5,000 units Q12H SQ 09/14/16 10:00 09/30/16 08:41 (Narcan Inj) 0.4 mg UNSCH PRN IV 09/14/16 09:30 (Procardia Xl) 90 mg DAILY PO 09/21/16 09:00 09/30/16 10:25 (Nitroglycerin 2% Oint) 0.5 inch Q6HR PRN TOPICAL 09/26/16 16:00 09/26/16 20:48 Miscellaneous Information 1 Q7D T-DERMAL 10/03/16 17:45 (Apresoline) 100 mg Q8HR NG 09/27/16 06:00 09/29/16 20:59 (Tylenol) 650 mg Q4H PRN NG 09/27/16 12:00 (Coreg) 25 mg Q12HR NG 09/27/16 09:00 09/30/16 10:25 (Catapres) 0.1 mg Q6H PRN NG 09/27/16 13:00 (Sodium Bicarbonate) 650 mg Q12HR NG 09/27/16 09:00 09/30/16 10:25 (Sorbitol 70% Liq) 30 ml DAILY NG 09/27/16 09:00 09/29/16 08:07 (Aspirin Supp) 300 mg DAILY PRN RECTAL 09/27/16 10:56 (Ecotrin Ec) 81 mg DAILY PO 09/28/16 09:00 09/30/16 10:25 (Catapres-Tts 0.1mg Patch.7d) 1 patch Q7D PRN TD 09/30/16 09:45 Urinary Catheter: No Date of Insertion: Sep 14, 2016 Date of Removal: Sep 16, 2016 A/P Problem List: (1) Accelerated hypertension ICD Code: I10 Status: Acute Assessment and Plan 70-year-old female with history of hypertension, edema, CKD, weakness presents after falling out the bed last night 09/13. Acute Ischemic R Parietal CVA: Stroke alert called during hospitalization 09/25. Neurology consulted. MRI with changes in the right parietal suggestive of ischemia. S/P permissive hypertension. LDL 47. A1c 5.3. Continue PT/OT/ST. Continue aspirin. Neurochecks. Echocardiogram EF of 60% . Improving mental status. Generalized weakness/fatigue with encephalopathy: likely multifactorial secondary to hypertensive encephalopathy, dehydration, and recent fall. See treatment below. Head CT with old ischemic changes, no acute findings. PT/OT/ ST. Hypertensive Encephalopathy secondary to Accelerated HTN: BP 200/106 upon arrival. Holding off on SHELL/ARB secondary to TRUDI/CKD. Uncontrolled secondary to permissive hypertension but has been cleared to restart BP medications per neurology. Restarted Coreg, nifedipine, hydralazine. Clonidine patch added, BP labile, decreased dose to 0.1mg. Monitor and adjust meds as needed. Possible CHF Exacerbation: BNP elevated at 990. CXR with mild cardiomegaly, no acute findings. Trace BLE edema. Echo 09/06/15 showed normal systolic function EF 55-60%, mild MR, mild TR, mild to mod increased pulmonary arterial pressure. Consulted patient's education instructor, appreciate input. Elevated Troponins: no complaints of chest pain. Trended enzymes were flat at 0.22, 0.19, 0.19. EKG with no acute ST elevation/depression. Consulted cardiology. Monitor on telemetry. TRUDI on CKD, stage III: hypertensive renal disease. TRUDI secondary to dehydration with decreased recent oral intake. Given IVF, DC. Avoid nephrotoxins. No improvement, consulted nephrology, appreciate input. Follow up BMP. Per hematology, unlikely multiple myeloma, defer bone biopsy for now given patient' s comorbidities, monitor for now, follow-up as outpatient. Pancreatic mass on CT of abdomen without contrast: marker studies normal. Oncology consulted. She is not a candidate for treatment (surgery, radiation, chemotherapy) should she have a pancreatic cancer. Recommended continued supportive care. Pulmonary Hypertension: seen on previous echo as above. Consulted pulmonology and cardiology, appreciate input. Follow-up as outpatient. Fall, Hip Pain: pt fell out of bed prior to arrival. CPK wnl. Hip/pelvis and femur xray negative for fracture. Patient needs rehabilitation, consult case management Poor Oral Intake: Removed feeding tube. Continue oral intake. Aspiration precautions. Consulted dietitian for calorie count, discussed with RN to start calorie count today 09/30. DVT Prophylaxis: heparin sq Written by Tri Banegas, acting as scribe for Dr. Louis on 09/30/16 at 10: 18. All or portions of this note were transcribed by scribe []. I, Dr. Dwain Louis personally performed the history, physical exam, and medical decision making; and confirmed the accuracy of the information in the transcribed note. Authenticated by Dr. Dwain Louis on 09/30/16 at 16:15. Discharge Planning Needs rehab placement. Tri Banegas PA-C Sep 30, 2016 11:36 Dwain Louis MD Sep 30, 2016 16:15
--- NOTE | 2016-09-30 15:23 | HHI.PR ---
Subjective Remarks 71 YOAA female with HTN,PHTN,mild sob Breathing better family at BS Awake, follows commands Weak, tired Speech sluured takes pureed food Objective Vital Signs Vital Signs Date Time Temp Pulse Resp B/P Pulse Ox O2 Delivery O2 Flow Rate FiO2 09/30/16 12:54 100/62 09/30/16 12:00 95.3 55 16 91/54 96 09/30/16 08:00 95.7 67 18 174/92 94 09/30/16 04:00 97.6 69 19 156/80 96 09/30/16 00:06 97.6 61 19 145/73 94 09/29/16 20:56 97 Room Air 09/29/16 20:00 97.0 60 19 153/72 97 09/29/16 19:55 59 09/29/16 16:00 97.3 57 17 139/76 95 I/O 09/29/16 09/29/16 09/29/16 09/30/16 09/30/16 09/30/16 07:00 15:00 23:00 07:00 15:00 23:00 Intake Total 120 ml 100 ml 240 ml 120 ml 0 ml Output Total 500 ml Balance 120 ml 100 ml 240 ml 120 ml -500 ml Intake Oral 120 ml 100 ml 240 ml 120 ml 0 ml Output Urine Total 500 ml # Voids 3 2 1 3 # Bowel Movements 0 0 0 0 0 Result Diagram: 09/30/16 0447 09/30/16 0447 Objective Remarks GENERAL: Elderly female,NAD SKIN: Warm and dry. HEAD: Normocephalic. EYES: No scleral icterus. No injection or drainage. NECK: Supple, trachea midline. No JVD or lymphadenopathy. CARDIOVASCULAR: Regular rate and rhythm without murmurs, gallops, or rubs. RESPIRATORY: Breath sounds equal bilaterally. No accessory muscle use. GASTROINTESTINAL: Abdomen soft, non-tender, nondistended. MUSCULOSKELETAL: No cyanosis, or edema. BACK: Nontender without obvious deformity. No CVA tenderness. A/P Assessment and Plan PHTN Uncontrolled HTN CVA H/O Fall PLAN DW family Neuro PANG underway Supplement 02 Monitor BP on Pureed diet Vern Castanon MD Sep 30, 2016 15:22
--- NOTE | 2016-09-30 15:35 | HHI.NPPN ---
Subjective General Problems: Anemia, Hypertension Renal Failure: Chronic, Acute, Stage IV History of Present Illness 71-year-old female with a past medical history of hypertension and history of chronic kidney disease who came to the hospital because of history of fall from the bed. The patient was admitted on September 14 and I was called to see the patient because of elevated BUN and creatinine. The patient previously has a known history of chronic kidney disease although she is not seeing any commercial electrician on a regular basis. Her creatinine a year ago in August of 2015 was 2.1, and now she was admitted with a creatinine of 2.8. Additional Remarks Patient resting in bed. No signs of distress Review of Systems General Constitutional: Fatigue Cardiovascular Cardiac: VERGARA Objective Data Data 09/29/16 09/30/16 19:00 07:00 Intake Total 100 ml 360 ml Balance 100 ml 360 ml Intake Oral 100 ml 360 ml # Voids 2 4 # Bowel Movements 0 0 Vital Signs Date Time Temp Pulse Resp B/P Pulse Ox O2 Delivery O2 Flow Rate FiO2 09/30/16 12:54 100/62 09/30/16 12:00 95.3 55 16 91/54 96 09/30/16 08:00 95.7 67 18 174/92 94 09/30/16 04:00 97.6 69 19 156/80 96 09/30/16 00:06 97.6 61 19 145/73 94 09/29/16 20:56 97 Room Air 09/29/16 20:00 97.0 60 19 153/72 97 09/29/16 19:55 59 09/29/16 16:00 97.3 57 17 139/76 95 -: 09/30/16 0447 09/30/16 0447 Physical Exam General Appearance: No Acute Distress, Comfortable Eyes Eye Exam: Pupils Equal Throat Throat Exam: Oral Mucosa [place] & Moist Neck Neck Exam: Neck Supple Pulmonary Resp Exam: No Distress, Rhonchi, Decreased Bases, Diminished Breath Sounds Cardiology CV Exam: Regular, Normal Sinus Rhythm Gastrointestinal/Abdomen GI Exam: Soft, Non-Tender, Bowel Sounds Present Extremeties Extremities Exam: No Edema Neurologic Neuro Exam: Alert, Awake Psychiatric Psych Exam: Appropriate Responses Assessment/Plan Assessment Summary: TRUDI/Acute Renal Failure, Anemia of CKD, Hypertension, CKD Stage IV Problem List: (1) Contusion, hip (2) UTI (urinary tract infection) (3) Dehydration (4) ARF (acute renal failure) (5) Accelerated hypertension (6) [id number] kidney injury Plan Patient has been non oliguric, voiding Has chronic kidney disease, possibly related to Hypertensive renal disease, Hematology input appreciated BM biopsy not planned due to comorbid condition, and stability of her disease. Also has suspected Pancreatic mass, recommended no further workup as she is not a candidate for any treatment. Creatinine : 3.4 -> 3.0 -> 3.4 ->4 today Lower BP today with SBP in 90s. Also, not taking much PO intake Will give trial of IVFs. - NS at 70cc/hour. Follow BP - lower reading at noon today. Continue meds for now. Palliative care following Problem Qualifiers (1) Contusion, hip: Qualified Code: S70.00XA - Contusion of hip, unspecified laterality, initial encounter (2) UTI (urinary tract infection): Qualified Code: N39.0 - Urinary tract infection without hematuria, site unspecified (3) ARF (acute renal failure): Qualified Code: N17.9 - Acute renal failure, unspecified acute renal failure type Favian Neal MD Sep 30, 2016 15:35
[2016-09-30] MEDS: SODIUM CHLOR 0.9% 1000 ML INJ 1,000 ML IV SCH (16:27)
--- NOTE | 2016-09-30 18:21 | HHI.PR ---
Subjective Remarks pt denies chest pain Objective Vital Signs Date Time Temp Pulse Resp B/P Pulse Ox O2 Delivery O2 Flow Rate FiO2 09/30/16 16:00 96.6 55 16 114/64 97 09/30/16 12:54 100/62 09/30/16 12:00 95.3 55 16 91/54 96 09/30/16 08:00 95.7 67 18 174/92 94 09/30/16 04:00 97.6 69 19 156/80 96 09/30/16 00:06 97.6 61 19 145/73 94 09/29/16 20:56 97 Room Air 09/29/16 20:00 97.0 60 19 153/72 97 09/29/16 19:55 59 I/O 09/29/16 09/29/16 09/29/16 09/30/16 09/30/16 09/30/16 07:00 15:00 23:00 07:00 15:00 23:00 Intake Total 120 ml 100 ml 240 ml 120 ml 0 ml Output Total 500 ml Balance 120 ml 100 ml 240 ml 120 ml -500 ml Intake Oral 120 ml 100 ml 240 ml 120 ml 0 ml Output Urine Total 500 ml # Voids 3 2 1 3 # Bowel Movements 0 0 0 0 0 VSS CHEST: CTA, HEART: S1, S2, RR ABD: ST EXT: No edema Result Diagram: 09/30/1644609/30/16446 Assessment and Plan Assessment and Plan BP has improved., off BB, . conservative management... I will follow as needed. Dwayne Shannon MD Sep 30, 2016 18:21
[2016-10-01 04:00] VITALS: BP 142/72; PULSE 64; RESP 21; TEMP 96; O2SAT 97
[2016-10-01 05:34] LABS: BICARBONATE 20.3 MEQ/L (21.0-32.0); MAGNESIUM 1.7 MG/DL (1.5-2.5)
[2016-10-01] MEDS: SODIUM CHLOR 0.9% 1000 ML INJ 1,000 ML IV SCH ×2 (06:08→20:16)
[2016-10-01] MEDS: hydrALAZINE HCL 100 MG TAB NG SCH ×3 (06:39→22:00)
[2016-10-01 08:00] VITALS: BP 159/83; PULSE 67; RESP 17; TEMP 97.1; O2SAT 95
[2016-10-01] MEDS: SODIUM BICARBONATE 650 MG TAB NG SCH ×2 (08:51→20:16)
[2016-10-01] MEDS: NIFEdipine 90 MG SUSTAINED RELEASE TAB PO SCH (08:51)
[2016-10-01] MEDS: ASPIRIN EC 81 MG TABEC PO SCH (08:51)
[2016-10-01] MEDS: SODIUM CHLORIDE 0.9% FLUSH 5 ML FLUSH FLUSH SCH ×2 (08:52→20:16)
[2016-10-01] MEDS: HEPARIN SODIUM - SQ 10,000 UNITS/ML VIAL SQ SCH ×2 (08:52→22:00)
[2016-10-01] MEDS: SORBITOL 70% SOLN 30 ML CUP NG SCH (09:00)
[2016-10-01 12:00] VITALS: BP 123/72; PULSE 69; RESP 16; TEMP 97.3; O2SAT 95
--- NOTE | 2016-10-01 14:45 | HHI.PR ---
Subjective Remarks pt denies chest pain Objective Vital Signs Date Time Temp Pulse Resp B/P Pulse Ox O2 Delivery O2 Flow Rate FiO2 10/01/16 12:00 97.3 69 16 123/72 95 10/01/16 08:00 97.1 67 17 159/83 95 10/01/16 08:00 Nasal Cannula 2.00 21 10/01/16 04:00 97 Nasal Cannula 2.00 10/01/16 04:00 96.0 64 21 142/72 97 09/30/16 23:38 97.1 71 19 155/79 98 09/30/16 20:00 96.8 60 19 141/68 95 09/30/16 19:52 54 09/30/16 16:00 96.6 55 16 114/64 97 I/O 09/30/16 09/30/16 09/30/16 10/01/16 10/01/16 10/01/16 07:00 15:00 23:00 07:00 15:00 23:00 Intake Total 120 ml 0 ml 409 ml 810 ml Output Total 500 ml 300 ml 150 ml Balance 120 ml -500 ml 109 ml 660 ml Intake Oral 120 ml 0 ml 120 ml 240 ml IV Total 289 ml 570 ml Output Urine Total 500 ml 300 ml 150 ml # Voids 3 1 2 # Bowel Movements 0 0 0 0 VSS CHEST:CTA HEART: S1,S2 RRR ABD: ST, NT Ext: No edema Result Diagram: 09/30/16 0447 10/01/16 0421 Assessment and Plan Assessment and Plan Pt is stable cardiacwise...conservative management... follow up with Dr Puente. thank you. Dwayne Shannon MD Oct 01, 2016 14:44
--- NOTE | 2016-10-01 15:58 | HHI.PR ---
Subjective Remarks Follow up for CVA, labile BP, poor oral intake. The patient is doing much better today. She denies any medical complaints. Seen with PULMONARY PHYSICAL THERAPIST and RN at bedside. Patient ate 85% of her breakfast and 100% of her lunch today. Blood pressure now improving, currently 159/83. Discussed rehab placement with the patient, she agrees. Objective Vitals Vital Signs Date Time Temp Pulse Resp B/P Pulse Ox O2 Delivery O2 Flow Rate FiO2 10/01/16 12:00 97.3 69 16 123/72 95 10/01/16 08:00 97.1 67 17 159/83 95 10/01/16 08:00 Nasal Cannula 2.00 21 10/01/16 04:00 97 Nasal Cannula 2.00 10/01/16 04:00 96.0 64 21 142/72 97 09/30/16 23:38 97.1 71 19 155/79 98 09/30/16 20:00 96.8 60 19 141/68 95 09/30/16 19:52 54 09/30/16 16:00 96.6 55 16 114/64 97 I/O 09/30/16 09/30/16 09/30/16 10/01/16 10/01/16 10/01/16 07:00 15:00 23:00 07:00 15:00 23:00 Intake Total 120 ml 0 ml 409 ml 810 ml 360 ml Output Total 500 ml 300 ml 150 ml Balance 120 ml -500 ml 109 ml 660 ml 360 ml Intake Oral 120 ml 0 ml 120 ml 240 ml 360 ml IV Total 289 ml 570 ml Output Urine Total 500 ml 300 ml 150 ml # Voids 3 1 2 4 # Bowel Movements 0 0 0 0 0 Result Diagram: 09/30/16 0447 10/01/16 0421 Imaging Last Impressions Abdomen X-Ray 09/27/16 0000 Signed Impressions: Service Date/Time: September 00:55 - CONCLUSION: 1. NG tube in the expected location of the gastric lumen. 2. Bibasilar effusion/atelectasis. Charlie Babb MD Head CT 09/25/16 0000 Signed Impressions: Service Date/Time: Sunday, September 25, 2016 11:24 - CONCLUSION: 1. Stable noncontrast head CT. No acute intracranial abnormality is identified. 2. Chronic changes include generalized atrophy and moderate severity periventricular white matter low-attenuation characteristic of chronic microvascular ischemia. Sanket Weeks MD Carotid Artery Ultrasound 09/25/16 Signed Impressions: Service Date/Time: Sunday, September 25, 2016 22:39 - CONCLUSION: 1. Calcified atherosclerotic plaquing in both carotid bulbs extending into the bifurcations. 2. Doppler velocities and ratios suggest a less than 50%% stenosis in the left internal carotid. 3. No significant stenosis on the right. Antegrade flow in both vertebral arteries. Charlie Babb MD Brain MRI 09/25/16 Signed Impressions: Service Date/Time: Sunday, September 25, 2016 15:01 - CONCLUSION: 1. Examination is severely degraded by motion artifact. 2. There is a punctate area of suspected restricted diffusion in the right parietal subcortical white matter in the mid convexity. This may represent a focal area of ischemia. 3. Background severe periventricular and subcortical white matter signal change characteristic of chronic microvascular ischemia. Sanket Weeks MD Chest X-Ray 09/18/16 Signed Impressions: Service Date/Time: Sunday, September 18, 2016 22:55 - CONCLUSION: 1. Bilateral mostly basilar airspace disease with cardiomegaly. Differential diagnosis includes mild edema and atelectasis/consolidation. Riky Elmore MD Hip and Pelvis X-Ray 09/14/16 0634 Signed Impressions: Service Date/Time: Wednesday, September 14, 2016 07:09 - CONCLUSION: Osteopenia. No acute abnormality. Fito Diaz Jr., MD Femur X-Ray 09/14/16 0634 Signed Impressions: Service Date/Time: Wednesday, September 14, 2016 07:12 - CONCLUSION: No acute abnormality. Fito Diaz Jr., MD Renal Ultrasound 09/14/16 Signed Impressions: Service Date/Time: Wednesday, September 14, 2016 10:20 - CONCLUSION: 1. Increased echogenicity of the renal parenchyma. This is usually associated with chronic medical renal disease. 2. Mild hydronephrosis of the left collecting system. 3. Benign appearing left renal cysts. 4. Possible nonobstructing right kidney stone. Recommend noncontrast CT abdomen as clinically indicated. Elías Mares MD Abdomen/Pelvis CT 09/14/16 Signed Impressions: Service Date/Time: Wednesday, September 14, 2016 19:43 - CONCLUSION: 1. No stones , hydronephrosis or other acute abnormalities seen of the kidneys. 2. Suspected mass of the pancreatic head. Further attempted characterization with a nonemergent contrast enhanced study is recommended, preferably abdomen MRI. 3. Severe chronic vascular disease. 4. Mild airspace opacities of both visualized lung bases. 5. Panchamber enlargement of the heart and coronary artery calcification. Sanket Marinelli MD Objective Remarks GENERAL: Well-nourished, well-developed elderly female patient in NAD. More awake and alert today. SKIN: Warm and dry. No rash. HEENT: Normocephalic. Atraumatic. Pupils equal and round. No scleral icterus. No injection or drainage. Mucous membranes pink and moist. NECK: Supple. Trachea midline. CARDIOVASCULAR: Regular rate and rhythm. S1, S2 noted. No murmur appreciated. RESPIRATORY: No accessory muscle use. Clear to auscultation. Breath sounds equal bilaterally. GASTROINTESTINAL: Abdomen soft, non-tender, nondistended. Normoactive bowel sounds x4. +abdominal bruit. MUSCULOSKELETAL: No obvious deformities. No edema. NEUROLOGICAL: Awake and alert, but drowsy. No obvious cranial nerve deficits. Moving all extremities spontaneously, LUE slightly weaker than RUE. Speech slowed but more clear today, no slurring. No obvious facial droop today. PSYCHIATRIC: Appropriate mood and affect; insight and judgment fair. Procedures None Medications and IVs Current Medications Medications (Trade) Dose Ordered Sig/Lenora Route Start Time Stop Time Status Last Admin (NS Flush) 2 ml UNSCH PRN FLUSH 09/14/16 09:30 09/19/16 01:49 (NS Flush) 2 ml BID FLUSH 09/14/16 21:00 10/01/16 08:52 (Heparin Inj) 5,000 units Q12H SQ 09/14/16 10:00 10/01/16 08:52 (Narcan Inj) 0.4 mg UNSCH PRN IV 09/14/16 09:30 (Procardia Xl) 90 mg DAILY PO 09/21/16 09:00 10/01/16 08:51 (Nitroglycerin 2% Oint) 0.5 inch Q6HR PRN TOPICAL 09/26/16 16:00 09/26/16 20:48 Miscellaneous Information 1 Q7D T-DERMAL 10/03/16 17:45 (Apresoline) 100 mg Q8HR NG 09/27/16 06:00 10/01/16 14:00 (Tylenol) 650 mg Q4H PRN NG 09/27/16 12:00 (Coreg) 25 mg Q12HR NG 09/27/16 09:00 Hold 09/30/16 10:25 (Catapres) 0.1 mg Q6H PRN NG 09/27/16 13:00 (Sodium Bicarbonate) 650 mg Q12HR NG 09/27/16 09:00 10/01/16 08:51 (Sorbitol 70% Liq) 30 ml DAILY NG 09/27/16 09:00 09/29/16 08:07 (Aspirin Supp) 300 mg DAILY PRN RECTAL 09/27/16 10:56 (Ecotrin Ec) 81 mg DAILY PO 09/28/16 09:00 10/01/16 08:51 Clonidine 1 patch 1 patch Q7D PRN TD 09/30/16 09:45 (NS 1000 ml Inj) 1,000 ml @ 70 mls/hr [id number] IV 09/30/16 15:45 10/01/16 06:08 Urinary Catheter: No Date of Insertion: Sep 14, 2016 Date of Removal: Sep 16, 2016 A/P Problem List: (1) Accelerated hypertension ICD Code: I10 Status: Acute Assessment and Plan 70-year-old female with history of hypertension, edema, CKD, weakness presents after falling out the bed last night 09/13. Acute Ischemic R Parietal CVA: Stroke alert called during hospitalization 09/25. Neurology consulted. MRI with changes in the right parietal suggestive of ischemia. S/P permissive hypertension. LDL 47. A1c 5.3. Continue PT/OT/ST. Continue aspirin. Neurochecks. Echocardiogram EF of 60% . Improving mental status. Generalized weakness/fatigue with encephalopathy: likely multifactorial secondary to hypertensive encephalopathy, dehydration, and recent fall. See treatment below. Head CT with old ischemic changes, no acute findings. PT/OT/ ST. Improving however needs rehab placement, case management consult. Hypertensive Encephalopathy secondary to Accelerated HTN: BP 200/106 upon arrival. Holding off on SHELL/ARB secondary to TRUDI/CKD. Uncontrolled secondary to permissive hypertension but has been cleared to restart BP medications per neurology. Restarted Coreg, nifedipine, hydralazine. Clonidine patch added, BP labile, decreased dose to 0.1mg. Also decrease Coreg dosing to 3.125mg bid. Monitor and adjust meds as needed. Possible CHF Exacerbation: BNP elevated at 990. CXR with mild cardiomegaly, no acute findings. Trace BLE edema. Echo 09/06/15 showed normal systolic function EF 55-60%, mild MR, mild TR, mild to mod increased pulmonary arterial pressure. Consulted patient's correctional officer captain, appreciate input. Elevated Troponins: no complaints of chest pain. Trended enzymes were flat at 0.22, 0.19, 0.19. EKG with no acute ST elevation/depression. Consulted cardiology. Monitor on telemetry. TRUDI on CKD, stage III: hypertensive renal disease. TRUDI secondary to dehydration with decreased recent oral intake. Given IVF, DC. Avoid nephrotoxins. No improvement, consulted nephrology, appreciate input. Follow up BMP. Per hematology, unlikely multiple myeloma, defer bone biopsy for now given patient' s comorbidities, monitor for now, follow-up as outpatient. Pancreatic mass on CT of abdomen without contrast: marker studies normal. Oncology consulted. She is not a candidate for treatment (surgery, radiation, chemotherapy) should she have a pancreatic cancer. Recommended continued supportive care. Pulmonary Hypertension: seen on previous echo as above. Consulted pulmonology and cardiology, appreciate input. Follow-up as outpatient. Fall, Hip Pain: pt fell out of bed prior to arrival. CPK wnl. Hip/pelvis and femur xray negative for fracture. Patient needs rehabilitation, consult case management Poor Oral Intake: Removed feeding tube. Continue oral intake. Aspiration precautions. Consulted dietitian for calorie count, started 09/30. Patient eating more today, 85% of breakfast, 100% of lunch. Continue to monitor. DVT Prophylaxis: heparin sq Written by Tri Banegas, acting as scribe for Dr. Louis on 10/01/16 at 14: 45. All or portions of this note were transcribed by scribe []. I, Dr. Dwain Louis personally performed the history, physical exam, and medical decision making; and confirmed the accuracy of the information in the transcribed note. Authenticated by Dr. Dwain Louis on 10/01/16 at 16:54. Discharge Planning Needs rehab placement. Tri Banegas PA-C Oct 01, 2016 15:58 Dwain Louis MD Oct 01, 2016 16:55
[2016-10-01 16:00] VITALS: BP 160/78; PULSE 65; RESP 17; TEMP 96.9; O2SAT 97
[2016-10-01 19:59] VITALS: PULSE 77
[2016-10-01 20:00] VITALS: BP 180/85; PULSE 77; RESP 18; TEMP 98; O2SAT 98
[2016-10-01] MEDS: CARVEDILOL 3.125 MG TAB PO SCH (20:16)
--- NOTE | 2016-10-01 21:05 | HHI.PR ---
Subjective Remarks 71 YOAA female with HTN,PHTN,mild sob Breathing better family at BS Awake, follows commands Weak, tired Sitting on bed side, eats dinner Objective Vital Signs Vital Signs Date Time Temp Pulse Resp B/P Pulse Ox O2 Delivery O2 Flow Rate FiO2 10/01/16 16:00 96.9 65 17 160/78 97 10/01/16 12:00 97.3 69 16 123/72 95 10/01/16 08:00 97.1 67 17 159/83 95 10/01/16 08:00 Nasal Cannula 2.00 21 10/01/16 04:00 97 Nasal Cannula 2.00 10/01/16 04:00 96.0 64 21 142/72 97 09/30/16 23:38 97.1 71 19 155/79 98 I/O 09/30/16 09/30/16 09/30/16 10/01/16 10/01/16 10/01/16 07:00 15:00 23:00 07:00 15:00 23:00 Intake Total 120 ml 0 ml 409 ml 810 ml 882 ml Output Total 500 ml 300 ml 150 ml Balance 120 ml -500 ml 109 ml 660 ml 882 ml Intake Oral 120 ml 0 ml 120 ml 240 ml 360 ml IV Total 289 ml 570 ml 522 ml Output Urine Total 500 ml 300 ml 150 ml # Voids 3 1 2 4 # Bowel Movements 0 0 0 0 0 Result Diagram: 09/30/16 0447 10/01/16 0421 Objective Remarks GENERAL: Elderly female,NAD SKIN: Warm and dry. HEAD: Normocephalic. EYES: No scleral icterus. No injection or drainage. NECK: Supple, trachea midline. No JVD or lymphadenopathy. CARDIOVASCULAR: Regular rate and rhythm without murmurs, gallops, or rubs. RESPIRATORY: Breath sounds equal bilaterally. No accessory muscle use. GASTROINTESTINAL: Abdomen soft, non-tender, nondistended. MUSCULOSKELETAL: No cyanosis, or edema. BACK: Nontender without obvious deformity. No CVA tenderness. A/P Assessment and Plan PHTN Uncontrolled HTN CVA H/O Fall PLAN DW family Neuro PANG underway Supplement 02 Monitor BP on Pureed diet Vern Castanon MD Oct 01, 2016 21:05
--- NOTE | 2016-10-01 22:17 | HHI.NPPN ---
Subjective General Problems: Anemia, Hypertension Renal Failure: Chronic, Acute, Stage IV History of Present Illness 71-year-old female with a past medical history of hypertension and history of chronic kidney disease who came to the hospital because of history of fall from the bed. The patient was admitted on September 14 and I was called to see the patient because of elevated BUN and creatinine. The patient previously has a known history of chronic kidney disease although she is not seeing any carton making machine operator on a regular basis. Her creatinine a year ago in August of 2015 was 2.1, and now she was admitted with a creatinine of 2.8. Additional Remarks Patient is alert, not in distress, now with caloric count. Review of Systems General Constitutional: Fatigue Cardiovascular Cardiac: VERGARA Objective Data Data 09/30/16 10/01/16 19:00 07:00 Intake Total 0 ml 1219 ml Output Total 500 ml 450 ml Balance -500 ml 769 ml Intake Oral 0 ml 360 ml IV Total 859 ml Output Urine Total 500 ml 450 ml # Voids 3 # Bowel Movements 0 0 Vital Signs Date Time Temp Pulse Resp B/P Pulse Ox O2 Delivery O2 Flow Rate FiO2 10/01/16 16:00 96.9 65 17 160/78 97 10/01/16 12:00 97.3 69 16 123/72 95 10/01/16 08:00 97.1 67 17 159/83 95 10/01/16 08:00 Nasal Cannula 2.00 21 10/01/16 04:00 97 Nasal Cannula 2.00 10/01/16 04:00 96.0 64 21 142/72 97 09/30/16 23:38 97.1 71 19 155/79 98 -: 09/30/16 0447 10/01/16 0421 Physical Exam General Appearance: No Acute Distress, Comfortable Eyes Eye Exam: Pupils Equal Throat Throat Exam: Oral Mucosa [place] & Moist Neck Neck Exam: Neck Supple Pulmonary Resp Exam: No Distress, Rhonchi, Decreased Bases, Diminished Breath Sounds Cardiology CV Exam: Regular, Normal Sinus Rhythm Gastrointestinal/Abdomen GI Exam: Soft, Non-Tender, Bowel Sounds Present Extremeties Extremities Exam: No Edema Neurologic Neuro Exam: Alert, Awake Psychiatric Psych Exam: Appropriate Responses Assessment/Plan Assessment Summary: TRUDI/Acute Renal Failure, Anemia of CKD, Hypertension, CKD Stage IV Problem List: (1) Contusion, hip (2) UTI (urinary tract infection) (3) Dehydration (4) ARF (acute renal failure) (5) Accelerated hypertension (6) [id number] kidney injury Plan Patient has been non oliguric, voiding Has chronic kidney disease, possibly related to Hypertensive renal disease, Hematology input appreciated BM biopsy not planned due to comorbid condition, and stability of her disease. Also has suspected Pancreatic mass, recommended no further workup as she is not a candidate for any treatment. BP is now better, Creatinine is slightly better. Has an element of TRUDI, possibly ATN. Problem Qualifiers (1) Contusion, hip: Qualified Code: S70.00XA - Contusion of hip, unspecified laterality, initial encounter (2) UTI (urinary tract infection): Qualified Code: N39.0 - Urinary tract infection without hematuria, site unspecified (3) ARF (acute renal failure): Qualified Code: N17.9 - Acute renal failure, unspecified acute renal failure type Danie Sanchez MD Oct 01, 2016 22:17
[2016-10-02] VITALS: BP 161/86; PULSE 76; RESP 20; TEMP 97.8; O2SAT 97
[2016-10-02 06:05] LABS: BICARBONATE 20.8 MEQ/L (21.0-32.0); MAGNESIUM 1.6 MG/DL (1.5-2.5); POTASSIUM 4.6 MEQ/L (3.5-5.1)
[2016-10-02] MEDS: hydrALAZINE HCL 100 MG TAB NG SCH ×3 (06:42→20:15)
[2016-10-02 08:29] VITALS: BP 166/82; PULSE 63; RESP 18; TEMP 97.6; O2SAT 95
[2016-10-02] MEDS: ASPIRIN EC 81 MG TABEC PO SCH (08:41)
[2016-10-02] MEDS: HEPARIN SODIUM - SQ 10,000 UNITS/ML VIAL SQ SCH ×2 (08:41→20:16)
[2016-10-02] MEDS: SODIUM BICARBONATE 650 MG TAB NG SCH ×2 (08:42→20:15)
[2016-10-02] MEDS: NIFEdipine 90 MG SUSTAINED RELEASE TAB PO SCH (08:42)
[2016-10-02] MEDS: CARVEDILOL 3.125 MG TAB PO SCH ×2 (08:42→20:15)
[2016-10-02] MEDS: SODIUM CHLOR 0.9% 1000 ML INJ 1,000 ML IV SCH (08:43)
[2016-10-02] MEDS: SORBITOL 70% SOLN 30 ML CUP NG SCH (08:46)
[2016-10-02] MEDS: SODIUM CHLORIDE 0.9% FLUSH 5 ML FLUSH FLUSH SCH ×2 (08:46→20:15)
--- NOTE | 2016-10-02 10:00 | HHI.NPPN ---
Subjective General Problems: Anemia, Hypertension Renal Failure: Chronic, Acute, Stage IV History of Present Illness 71-year-old female with a past medical history of hypertension and history of chronic kidney disease who came to the hospital because of history of fall from the bed. The patient was admitted on September 14 and I was called to see the patient because of elevated BUN and creatinine. The patient previously has a known history of chronic kidney disease although she is not seeing any bridge rigger on a regular basis. Her creatinine a year ago in August of 2015 was 2.1, and now she was admitted with a creatinine of 2.8. Additional Remarks Patient is alert, now eating better, no SOB, on caloric count. Review of Systems General Constitutional: Fatigue Cardiovascular Cardiac: VERGARA Objective Data Data 10/01/16 10/02/16 19:00 07:00 Intake Total 882 ml 560 ml Output Total 950 ml Balance 882 ml -390 ml Intake Oral 360 ml 560 ml IV Total 522 ml Output Urine Total 950 ml # Voids 4 # Bowel Movements 0 0 Vital Signs Date Time Temp Pulse Resp B/P Pulse Ox O2 Delivery O2 Flow Rate FiO2 10/02/16 08:29 97.6 63 18 166/82 95 10/02/16 00:00 97.8 76 20 161/86 97 10/01/16 20:00 98.0 77 18 180/85 98 10/01/16 19:59 77 10/01/16 16:00 96.9 65 17 160/78 97 10/01/16 12:00 97.3 69 16 123/72 95 -: 09/30/16 0447 10/02/16 0459 Physical Exam General Appearance: No Acute Distress, Comfortable Eyes Eye Exam: Pupils Equal Throat Throat Exam: Oral Mucosa [place] & Moist Neck Neck Exam: Neck Supple Pulmonary Resp Exam: No Distress, Rhonchi, Decreased Bases, Diminished Breath Sounds Cardiology CV Exam: Regular, Normal Sinus Rhythm Gastrointestinal/Abdomen GI Exam: Soft, Non-Tender, Bowel Sounds Present Extremeties Extremities Exam: No Edema Neurologic Neuro Exam: Alert, Awake Psychiatric Psych Exam: Appropriate Responses Assessment/Plan Assessment Summary: TRUDI/Acute Renal Failure, Anemia of CKD, Hypertension, CKD Stage IV Problem List: (1) Contusion, hip (2) UTI (urinary tract infection) (3) Dehydration (4) ARF (acute renal failure) (5) Accelerated hypertension (6) Xlrrk-tq-himkiji kidney injury Plan Patient has been non oliguric, voiding Has chronic kidney disease, possibly related to Hypertensive renal disease, Hematology input appreciated BM biopsy not planned due to comorbid condition, and stability of her disease. Also has suspected Pancreatic mass, recommended no further workup as she is not a candidate for any treatment. BP is slightly elevated, started on Coreg last night. Has an element of TRUDI, possibly ATN. Creatinine is slightly better. Problem Qualifiers (1) Contusion, hip: Qualified Code: S70.00XA - Contusion of hip, unspecified laterality, initial encounter (2) UTI (urinary tract infection): Qualified Code: N39.0 - Urinary tract infection without hematuria, site unspecified (3) ARF (acute renal failure): Qualified Code: N17.9 - Acute renal failure, unspecified acute renal failure type Danie Sanchez MD Oct 02, 2016 10:00
--- NOTE | 2016-10-02 11:32 | HHI.PR ---
Subjective Remarks Follow-up for CVA, labile BP, poor intake. Patient does not feel weak. She is asking for more food. It is documented that she refused hydralazine last night. Objective Vitals Vital Signs Date Time Temp Pulse Resp B/P Pulse Ox O2 Delivery O2 Flow Rate FiO2 10/02/16 08:29 97.6 63 18 166/82 95 10/02/16 00:00 97.8 76 20 161/86 97 10/01/16 20:00 98.0 77 18 180/85 98 10/01/16 19:59 77 10/01/16 16:00 96.9 65 17 160/78 97 10/01/16 12:00 97.3 69 16 123/72 95 I/O 10/01/16 10/01/16 10/01/16 10/02/16 10/02/16 10/02/16 07:00 15:00 23:00 07:00 15:00 23:00 Intake Total 810 ml 882 ml 320 ml 240 ml Output Total 150 ml 650 ml 300 ml Balance 660 ml 882 ml -330 ml -60 ml Intake Oral 240 ml 360 ml 320 ml 240 ml IV Total 570 ml 522 ml Output Urine Total 150 ml 650 ml 300 ml # Voids 2 4 # Bowel Movements 0 0 0 0 Result Diagram: 09/30/16 0447 10/02/16 0459 Objective Remarks GENERAL: Well-developed well-nourished. In no acute distress. SKIN: Warm and dry. No lesions noted. HEENT: Normocephalic. Pupils equal and round. Mucous membranes pink and moist. CARDIOVASCULAR: Regular rate and rhythm. No murmur appreciated. RESPIRATORY: No accessory muscle use. Clear to auscultation. Breath sounds equal bilaterally. GASTROINTESTINAL: Abdomen soft, non-tender, nondistended. Bowel sounds x4. MUSCULOSKELETAL: No obvious deformities. No clubbing or cyanosis. No edema. NEUROLOGICAL: Awake and alert. Left facial weakness with right drooping. Bilateral lower extremity weakness, left worse than right. Slurred speech. PSYCHIATRIC: Appropriate mood and affect; insight and judgment limited. Procedures None Date of Insertion: Sep 14, 2016 Date of Removal: Sep 16, 2016 A/P Problem List: (1) Accelerated hypertension ICD Code: I10 Status: Acute Assessment and Plan 70-year-old female with history of hypertension, edema, CKD, weakness presents after falling out the bed last night 09/13. Stroke alert 09/25: Neurology was consulted. TIA vs CVA. MRI with changes in the right parietal suggestive of ischemia. S/P permissive hypertension. LDL 47. A1c 5.3. PT/OT/ST. Continue aspirin. Neurochecks. Echocardiogram EF of 60% . Improving mental status. Generalized weakness/fatigue with encephalopathy: likely multifactorial secondary to hypertensive encephalopathy, dehydration, and recent fall. See treatment below. Head CT with old ischemic changes, no acute findings. PT/OT/ ST. Hypertensive Encephalopathy secondary to Accelerated HTN: BP 200/106 upon arrival. Holding off on SHELL/ARB secondary to TRUDI/CKD. Uncontrolled secondary to permissive hypertension but has been cleared to restart BP medications by neurology. Restarted Coreg, nifedipine, hydralazine. Carvedilol decreased with bradycardia. Clonidine patch as needed patient refuses meds. Monitor and adjust meds as needed. Possible CHF Exacerbation: BNP elevated at 990. CXR with mild cardiomegaly, no acute findings. Trace BLE edema. Echo 09/06/15 showed normal systolic function EF 55-60%, mild MR, mild TR, mild to mod increased pulmonary arterial pressure. Consulted patient's fig caprifier, appreciate input. Pulmonology on board for pulm HTN. Elevated Troponins: no complaints of chest pain. Trended enzymes were flat at 0.22, 0.19, 0.19. EKG with no acute ST elevation/depression. Consulted cardiology. Monitor on telemetry. TRUDI on CKD, stage III: hypertensive renal disease. TRUDI secondary to dehydration with decreased recent oral intake. Given IVF. Avoid nephrotoxins. Consulted nephrology, appreciate input. Follow up BMP. Per hematology, unlikely multiple myeloma, defer bone biopsy for now given patient's comorbidities, monitor for now, follow-up as outpatient. Creatinine improving. Pancreatic mass on CT of abdomen without contrast: marker studies normal. Oncology consulted. She is not a candidate for treatment (surgery, radiation, chemotherapy) should she have a pancreatic cancer. Recommended continued supportive care. Pulmonary Hypertension: seen on previous echo as above. Consulted pulmonology and cardiology, appreciate input. Follow-up as outpatient. Fall, Hip Pain: pt fell out of bed prior to arrival. CPK wnl. Hip/pelvis and femur xray negative for fracture. Patient needs rehabilitation, consult case management FEN: Removed feeding tube. Continue oral intake. Aspiration precautions. May need mittens. Consulted dietitian, calorie count 09/30-10/02. DVT Prophylaxis: heparin sq Written by Ankur Lizarraga, acting as scribe for Dr. Louis on 10/02/16 at 11:30. All or portions of this note were transcribed by scribe []. I, Dr. Dwain Louis personally performed the history, physical exam, and medical decision making; and confirmed the accuracy of the information in the transcribed note. Authenticated by Dr. Dwain Louis on 10/02/16 at 14:59. Discharge Planning Discharge planning to [place] if oral intake is adequate. Discussed with case management, patient and family refused rehabilitation. At this time, patient is not safe discharge to home. Continue IV hydration and physical therapy Ankur Lizarraga Oct 02, 2016 11:32 Dwain Louis MD Oct 02, 2016 15:00
[2016-10-02 12:00] VITALS: BP 157/90; PULSE 73; RESP 16; TEMP 98.5; O2SAT 95
--- NOTE | 2016-10-02 18:08 | HHI.PR ---
Subjective Remarks 71 YOAA female with HTN,PHTN,mild sob Breathing better family at BS Awake, follows commands Appetite better No new complaint Objective Vital Signs Vital Signs Date Time Temp Pulse Resp B/P Pulse Ox O2 Delivery O2 Flow Rate FiO2 10/02/16 15:52 3.00 10/02/16 12:00 98.5 73 16 157/90 95 10/02/16 08:29 97.6 63 18 166/82 95 10/02/16 00:00 97.8 76 20 161/86 97 10/01/16 20:00 98.0 77 18 180/85 98 10/01/16 19:59 77 I/O 10/01/16 10/01/16 10/01/16 10/02/16 10/02/16 10/02/16 07:00 15:00 23:00 07:00 15:00 23:00 Intake Total 810 ml 882 ml 320 ml 240 ml 120 ml Output Total 150 ml 650 ml 300 ml Balance 660 ml 882 ml -330 ml -60 ml 120 ml Intake Oral 240 ml 360 ml 320 ml 240 ml 120 ml IV Total 570 ml 522 ml Output Urine Total 150 ml 650 ml 300 ml # Voids 2 4 3 # Bowel Movements 0 0 0 0 1 Result Diagram: 09/30/16 0447 10/02/16 0459 Objective Remarks GENERAL: Elderly female,NAD SKIN: Warm and dry. HEAD: Normocephalic. EYES: No scleral icterus. No injection or drainage. NECK: Supple, trachea midline. No JVD or lymphadenopathy. CARDIOVASCULAR: Regular rate and rhythm without murmurs, gallops, or rubs. RESPIRATORY: Breath sounds equal bilaterally. No accessory muscle use. GASTROINTESTINAL: Abdomen soft, non-tender, nondistended. MUSCULOSKELETAL: No cyanosis, or edema. BACK: Nontender without obvious deformity. No CVA tenderness. A/P Assessment and Plan PHTN Uncontrolled HTN CVA H/O Fall PLAN DW family Neuro PANG underway Supplement 02 Monitor BP Stable pulm status Vern Castanon MD Oct 02, 2016 18:08
[2016-10-02 20:00] VITALS: BP 208/104; PULSE 64; RESP 20; TEMP 99; O2SAT 99
--- NOTE | 2016-10-02 23:08 | HHI.HCPN ---
Reason for visit a. To assist with evaluation and management of symptoms including: dysphagia , weakness, confusion b. To assist medical decision maker(s) with: better understanding of current medical conditions; weighing benefits/burdens of medical treatment options; making medical treatment decisions. . Subjective/Interval History Ms. Noel is a 71 year old female admitted on 09/14/16 for management of UTI, acute on chronic kidney injury and uncontrolled hypertension. Blood pressures remain high in spite of intervention. On 09/25 a stroke alert was called. She has had multiple TIA's in the past. She is doing much better. NG tube was discontinued. She is now on a mechanical soft diet with chopped meats and is tolerating thin liquids. She was able to ambulate a few feet in the ott with physical therapy today. On exam, she is noted to have a less significant left facial droop and her left hand curriculum assistant principal is stronger. She remains a candidate for rehabilitation at this time. At the time of my exam. Her family was not present. She was tearful and wanting them to visit her. They have been greatly supportive and attentive to her needs and have been excellent advocates to her care. Advance Directives Advance Directive Specifics Health Care Surrogate(s): Patient flores Morales believes she has paperwork indicating she is designated as healthcare surrogate, however, she has been unable to provide this document. At this point in time, Mrs. Noel has not been reliable in having capacity to make decisions As a result, According to [place] statutes, health care proxy decision making falls to the majority of adult children. She has 10 of children. 3 of her children Doris, Anthony, Yousif Ritter have opted out of decision making. One child, Ed, has not returned our calls. The other children, Carmen, Leti, Tae, Kunal, Kameron, Scotty wish to participate in decision making as healthcare proxy decision makers, therefore we must have agreement of 4 of the 6 children for any medical decisions. Contact information for children who wish to serve in the healthcare proxy role: Carmen (daughter) [phone] -she is listed as next of kin person to contact in the clinical record. She has been the primary caregiver. Leti (daughter)[phone] - lives across the street. Assists in her care. Germán (son/eldest) [phone] lives in [place] - felt to be the "boss" in the family Scotty (son). [phone] - lives in [place], [place] Kameron (son) [phone] - lives in [place], [place] Tae (daughter). [phone] - lives in [facility] These members are not available or have opted out. Ed (son) [phone] - lives in [facility] area - unable to reach Yousif Bernardo (son) [phone] - lives in [facility] are opted out on decision making Anthony (son) [phone] lives in [place], [place] - opted out on decision making Yanci (Doris-daughter) - [phone] - opted out lives in [place], [place] Documented care wishes: The children spoke with their mother prior to her recent stroke. Regarding CODE STATUS. At the time, Ms. Noel indicated that she would not want intubation Objective Vital Signs Date Time Temp Pulse Resp B/P Pulse Ox O2 Delivery O2 Flow Rate FiO2 10/02/16 19:00 Nasal Cannula 3.00 21 10/02/16 15:52 3.00 10/02/16 12:00 98.5 73 16 157/90 95 10/02/16 08:29 97.6 63 18 166/82 95 10/02/16 00:00 97.8 76 20 161/86 97 Intake & Output 10/02/16 10/02/16 07:00 19:00 Intake Total 560 ml 120 ml Output Total 950 ml Balance -390 ml 120 ml Intake Oral 560 ml 120 ml Output Urine Total 950 ml # Voids 3 # Bowel Movements 0 1 Physical Exam CONSTITUTIONAL/GENERAL: Patient is a 71-year-old female status post stroke awake and alert, more awake and conversant. TUBES/LINES/DRAINS: French catheter, nasal cannula, IV lines, SKIN: No jaundice, rashes, or lesions. Skin temperature appropriate. Not diaphoretic. HEAD: Atraumatic. Normocephalic. EYES: Pupils equal and round and reactive. No scleral icterus. No injection or drainage. ENT: Hearing grossly normal. NECK: Trachea midline. Supple, nontender. CARDIOVASCULAR: Regular rate and rhythm without murmurs, gallops, or rubs. No JVD. Peripheral pulses symmetric. RESPIRATORY/CHEST: Symmetric, unlabored respirations. Breath sounds diminished diminished in bases bilaterally. GASTROINTESTINAL: Abdomen soft, non-tender, nondistended. Bowel sounds present. GENITOURINARY: Without palpable bladder distension. MUSCULOSKELETAL: Extremities without clubbing, cyanosis, or edema. No mottling or clubbing. LYMPHATICS: No palpable cervical or supraclavicular adenopathy. NEUROLOGICAL: She is awake and responds slowly but clearly. right sided facial droop is not evident.. L curriculum assistant principal is stronger than prior but still less than her R side. PSYCHIATRIC: She is tearful today wanting her children . Diagnostic Tests Laboratory Laboratory Tests Test 09/30/16 10/01/16 10/02/16 04:47 04:21 04:59 White Blood Count 5.4 TH/MM3 (4.0-11.0) Red Blood Count 3.24 MIL/MM3 (4.00-5.30) Hemoglobin 9.4 GM/DL (11.6-15.3) Hematocrit 28.4 % (35.0-46.0) Mean Corpuscular Volume 87.7 FL (80.0-100.0) Mean Corpuscular Hemoglobin 29.0 PG (27.0-34.0) Mean Corpuscular Hemoglobin 33.1 % Concent (32.0-36.0) Red Cell Distribution Width 14.1 % (11.6-17.2) Platelet Count 264 TH/MM3 (150-450) Mean Platelet Volume 8.6 FL (7.0-11.0) Neutrophils (%) (Auto) 41.8 % (16.0-70.0) Lymphocytes (%) (Auto) 43.7 % (9.0-44.0) Monocytes (%) (Auto) 9.9 % (0.0-8.0) Eosinophils (%) (Auto) 3.6 % (0.0-4.0) Basophils (%) (Auto) 1.0 % (0.0-2.0) Neutrophils # (Auto) 2.3 TH/MM3 (1.8-7.7) Lymphocytes # (Auto) 2.4 TH/MM3 (1.0-4.8) Monocytes # (Auto) 0.5 TH/MM3 (0-0.9) Eosinophils # (Auto) 0.2 TH/MM3 (0-0.4) Basophils # (Auto) 0.1 TH/MM3 (0-0.2) CBC Comment DIFF FINAL Differential Comment Sodium Level 147 MEQ/L 142 MEQ/L 143 MEQ/L (136-145) (136-145) (136-145) Potassium Level 4.1 MEQ/L 4.0 MEQ/L 4.6 MEQ/L (3.5-5.1) (3.5-5.1) (3.5-5.1) Chloride Level 117 MEQ/L 112 MEQ/L 113 MEQ/L (98-107) (98-107) (98-107) Carbon Dioxide Level 20.5 MEQ/L 20.3 MEQ/L 20.8 MEQ/L (21.0-32.0) (21.0-32.0) (21.0-32.0) Anion Gap 10 MEQ/L (5-15) 10 MEQ/L (5-15) 9 MEQ/L (5-15) Blood Urea Nitrogen 58 MG/DL (7-18) 51 MG/DL (7-18) 47 MG/DL (7-18) Creatinine 4.05 MG/DL 3.43 MG/DL 3.17 MG/DL (0.50-1.00) (0.50-1.00) (0.50-1.00) Estimat Glomerular Filtration 13 ML/MIN (>89) 16 ML/MIN (>89) 17 ML/MIN (>89) Rate Random Glucose 109 MG/DL 91 MG/DL 92 MG/DL (74-106) (74-106) (74-106) Calcium Level 9.2 MG/DL 8.7 MG/DL 9.1 MG/DL (8.5-10.1) (8.5-10.1) (8.5-10.1) Magnesium Level 2.0 MG/DL 1.7 MG/DL 1.6 MG/DL (1.5-2.5) (1.5-2.5) (1.5-2.5) Result Diagram: 09/30/16 0447 10/02/16 0459 Procedures NGT placement 09/26/16 - removed 09/27/16 Assessment and Plan Disease Oriented Problem List: (1) CVA, old, cognitive deficits Comment: Functionally weak, needs moderate to maximum assistance with ADLs. (2) Malignant hypertension (arteriolar nephrosclerosis) Comment: Improving. (3) Chronic kidney disease (CKD), stage IV (severe) Comment: New findings: Hematology consult by nephrology to investigated monoclonal gammopathy versus light chain deposits (4) Yqrpp-kg-rmposaf kidney injury Comment: Improving Symptom Scale: (1) Pain 0-10 Scale: Unable to quantify Comment: History of back problems as well as leg pain. (2) Dyspnea 0-10 Scale: 5 Comment: remains on O2 via NC (3) Dysphagia 0-10 Scale: Unable to quantify Comment: Tolerating a mechanical soft diet and thin liquids. Feeding herself. 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 According to [place] Statutes, health care proxy decision making falls to the majority of adult children. See contacts below Ethical issues impacting care:~ None identified Important Contacts As a result, According to [place] statutes, health care proxy decision making falls to the majority of adult children. She has 10 of children. 3 of her children Doris, Anthony, Ray Stone have opted out of decision making. One child, Ed, has not returned our calls. The other children, Carmen, Leti, Tae, Kunal, Kameron, Scotty wish to participate in decision making as healthcare proxy decision makers, therefore we must have agreement of 4 of the 6 children for any medical decisions. Contact information for children who wish to serve in the healthcare proxy role: Carmen (daughter) [phone] -she is listed as next of kin person to contact in the clinical record. She has been the primary caregiver. Leti (daughter)[phone] - lives across the street. Assists in her care. Germán (son/eldest) [phone] lives in [place] - felt to be the "boss" in the family Scotty (son). [phone] - lives in [place], [place] Kameron (son) [phone] - lives in [place], [place] Tae (daughter). [phone] - lives in [facility] These members are not available or have opted out. Ed (son) [phone] - lives in [facility] area - unable to reach Yousif Bernardo (son) [phone] - lives in [facility] are opted out on decision making Anthony (son) [phone] lives in [place], [place] - opted out on decision making Yanci (Doris-daughter) - [phone] - opted out lives in [place], [place] Prognosis At this time Prognosis is guarded. She is an elderly 71-year-old with history of multiple CVAs, CK D stage IV and resistant hypertension. She is frail and is a high risk for falls. Code Status: Alternative Code (CPR - compressions, shock, ALCS drugs - NO chest compressions) Plan patient is slowly improving. Recommendation is for her to go to a rehabilitation center. However, the patient states she is wanting to go home. Previously, she was cared for by a daughter at home. However, would have extended periods alone. Today, she has more debility and would need 24-hour supervision. Current plan is for discharge to home with home health . Attestation To help prompt me to consider important information that might be impacting today's encounter and assessment, information from prior notes written by myself or my colleagues may have been "brought forward" into today's note. My signature on this note, however, is an attestation that I personally performed the exam, history, and/or decision-making noted today, and, unless otherwise indicated, the interactions with patient, family, and staff as well as the review of records all occurred today. I also attest that the listed assessment and stated plan reflect my best clinical judgment today based on the combination of historical information, prior notes, and today's exam/ interactions. When time spent is documented, it refers only to time spent today by the signer, or if indicated, combined time spent today by collaborating physician/nurse practitioner. Jessica Lemus Oct 02, 2016 23:08
[2016-10-03] VITALS: BP 161/80; PULSE 70; RESP 18; TEMP 98.4; O2SAT 98
[2016-10-03] MEDS: SODIUM CHLOR 0.9% 1000 ML INJ 1,000 ML IV SCH ×2 (00:57→10:12)
[2016-10-03 04:00] VITALS: BP 146/84; PULSE 80; RESP 20; TEMP 98; O2SAT 97
[2016-10-03] MEDS: hydrALAZINE HCL 100 MG TAB NG SCH ×3 (05:43→22:20)
[2016-10-03 08:00] VITALS: BP 170/95; PULSE 64; RESP 16; TEMP 98.2; O2SAT 100
[2016-10-03] MEDS: SODIUM CHLORIDE 0.9% FLUSH 5 ML FLUSH FLUSH SCH ×2 (09:00→21:00)
[2016-10-03] MEDS: SODIUM BICARBONATE 650 MG TAB NG SCH ×2 (10:07→22:20)
[2016-10-03] MEDS: ASPIRIN EC 81 MG TABEC PO SCH (10:07)
[2016-10-03] MEDS: NIFEdipine 90 MG SUSTAINED RELEASE TAB PO SCH (10:07)
[2016-10-03] MEDS: CARVEDILOL 3.125 MG TAB PO SCH (10:07)
[2016-10-03] MEDS: SORBITOL 70% SOLN 30 ML CUP NG SCH (10:08)
[2016-10-03] MEDS: HEPARIN SODIUM - SQ 10,000 UNITS/ML VIAL SQ SCH ×2 (10:12→22:21)
--- NOTE | 2016-10-03 11:13 | HHI.NPPN ---
Subjective General Problems: Anemia, Hypertension Renal Failure: Chronic, Acute, Stage IV History of Present Illness 71-year-old female with a past medical history of hypertension and history of chronic kidney disease who came to the hospital because of history of fall from the bed. The patient was admitted on September 14 and I was called to see the patient because of elevated BUN and creatinine. 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 Her creatinine a year ago in August of 2015 was 2.1, and now she was admitted with a creatinine of 2.8. Additional Remarks Patient is alert, no complain, still not eating well. Review of Systems General Constitutional: Fatigue Cardiovascular Cardiac: VERGARA Objective Data Data 10/02/16 10/03/16 19:00 07:00 Intake Total 120 ml 1935 ml Output Total 1050 ml Balance 120 ml 885 ml Intake Oral 120 ml 800 ml IV Total 1135 ml Output Urine Total 1050 ml # Voids 3 # Bowel Movements 1 0 Vital Signs Date Time Temp Pulse Resp B/P Pulse Ox O2 Delivery O2 Flow Rate FiO2 10/03/16 08:00 98.2 64 16 170/95 100 10/03/16 04:00 98.0 80 20 146/84 97 10/03/16 00:00 98.4 70 18 161/80 98 10/02/16 20:00 99.0 64 20 208/104 99 10/02/16 19:00 Nasal Cannula 3.00 21 10/02/16 15:52 3.00 10/02/16 12:00 98.5 73 16 157/90 95 -: 09/30/16 0447 10/02/16 0459 Physical Exam General Appearance: No Acute Distress, Comfortable Eyes Eye Exam: Pupils Equal Throat Throat Exam: Oral Mucosa [place] & Moist Neck Neck Exam: Neck Supple Pulmonary Resp Exam: No Distress, Rhonchi, Decreased Bases, Diminished Breath Sounds Cardiology CV Exam: Regular, Normal Sinus Rhythm Gastrointestinal/Abdomen GI Exam: Soft, Non-Tender, Bowel Sounds Present Extremeties Extremities Exam: No Edema Neurologic Neuro Exam: Alert, Awake Psychiatric Psych Exam: Appropriate Responses Assessment/Plan Assessment Summary: TRUDI/Acute Renal Failure, Anemia of CKD, Hypertension, CKD Stage IV Problem List: (1) Contusion, hip (2) UTI (urinary tract infection) (3) Dehydration (4) ARF (acute renal failure) (5) Accelerated hypertension (6) Tjzxq-kc-htmmxtu kidney injury Plan Patient has been non oliguric, voiding Has chronic kidney disease, possibly related to Hypertensive renal disease, Hematology input appreciated BM biopsy not planned due to comorbid condition, and stability of her disease. Also has suspected Pancreatic mass, recommended no further workup as she is not a candidate for any treatment. BP is slightly elevated, started on Coreg last night. Has an element of TRUDI, possibly ATN. Creatinine is now 3.2, possibly this will be her baseline. Problem Qualifiers (1) Contusion, hip: Qualified Code: S70.00XA - Contusion of hip, unspecified laterality, initial encounter (2) UTI (urinary tract infection): Qualified Code: N39.0 - Urinary tract infection without hematuria, site unspecified (3) ARF (acute renal failure): Qualified Code: N17.9 - Acute renal failure, unspecified acute renal failure type Danie Sanchez MD Oct 03, 2016 11:12
[2016-10-03 11:34] LABS: BICARBONATE 20.6 MEQ/L (21.0-32.0); MAGNESIUM 1.8 MG/DL (1.5-2.5); POTASSIUM 4.6 MEQ/L (3.5-5.1)
[2016-10-03 12:00] VITALS: BP 110/67; PULSE 61; RESP 14; TEMP 98; O2SAT 96
--- NOTE | 2016-10-03 14:18 | HHI.PR ---
Subjective Remarks Follow-up for CVA. Discussed with case management, family wants to take the patient home. Discussed with patient and grandson at bedside as well as patient 's daughter over the phone. The patient would like to go home and DC, currently declining SNF. The patient's family would like to take her home and plan to be with her at home all the time. Ate most of her lunch today. Objective Vitals Vital Signs Date Time Temp Pulse Resp B/P Pulse Ox O2 Delivery O2 Flow Rate FiO2 10/03/16 12:00 98.0 61 14 110/67 96 10/03/16 08:00 98.2 64 16 170/95 100 10/03/16 04:00 98.0 80 20 146/84 97 10/03/16 00:00 98.4 70 18 161/80 98 10/02/16 20:00 99.0 64 20 208/104 99 10/02/16 19:00 Nasal Cannula 3.00 21 10/02/16 15:52 3.00 I/O 10/02/16 10/02/16 10/02/16 10/03/16 10/03/16 10/03/16 07:00 15:00 23:00 07:00 15:00 23:00 Intake Total 240 ml 120 ml 1455 ml 480 ml Output Total 300 ml 400 ml 650 ml Balance -60 ml 120 ml 1055 ml -170 ml Intake Oral 240 ml 120 ml 320 ml 480 ml IV Total 1135 ml Output Urine Total 300 ml 400 ml 650 ml # Voids 3 # Bowel Movements 0 1 0 0 Result Diagram: 09/30/16 0447 10/03/16 1030 Objective Remarks GENERAL: Well-developed well-nourished. In no acute distress. SKIN: Warm and dry. No lesions noted. HEENT: Normocephalic. Pupils equal and round. Mucous membranes pink and moist. CARDIOVASCULAR: Regular rate and rhythm. No murmur appreciated. RESPIRATORY: No accessory muscle use. Clear to auscultation. Breath sounds equal bilaterally. GASTROINTESTINAL: Abdomen soft, non-tender, nondistended. Bowel sounds x4. MUSCULOSKELETAL: No obvious deformities. No clubbing or cyanosis. No edema. NEUROLOGICAL: Awake and alert. Left facial weakness with right drooping. Bilateral lower extremity weakness, left worse than right. Slurred speech. PSYCHIATRIC: Appropriate mood and affect; insight and judgment fair. Procedures None Date of Insertion: Sep 14, 2016 Date of Removal: Sep 16, 2016 A/P Problem List: (1) Accelerated hypertension ICD Code: I10 Status: Acute Assessment and Plan 70-year-old female with history of hypertension, edema, CKD, weakness presents after falling out the bed last night 09/13. Stroke alert 09/25: Neurology was consulted. TIA vs CVA. MRI with changes in the right parietal suggestive of ischemia. S/P permissive hypertension. LDL 47. A1c 5.3. PT/OT/ST. Continue aspirin. Neurochecks. Echocardiogram EF of 60% . Improving mental status. Generalized weakness/fatigue with encephalopathy: likely multifactorial secondary to hypertensive encephalopathy, dehydration, and recent fall. See treatment below. Head CT with old ischemic changes, no acute findings. PT/OT/ ST. Hypertensive Encephalopathy secondary to Accelerated HTN: BP 200/106 upon arrival. Holding off on SHELL/ARB secondary to TRUDI/CKD. Uncontrolled secondary to permissive hypertension but has been cleared to restart BP medications by neurology. Restarted Coreg, nifedipine, hydralazine. Carvedilol decreased to 3.125 with bradycardia, increased 6.25 with continued hypertension. Clonidine patch as needed patient refuses meds. Monitor and adjust meds as needed. Possible CHF Exacerbation: BNP elevated at 990. CXR with mild cardiomegaly, no acute findings. Trace BLE edema. Echo 09/06/15 showed normal systolic function EF 55-60%, mild MR, mild TR, mild to mod increased pulmonary arterial pressure. Consulted patient's abstracter, appreciate input. Pulmonology on board for pulm HTN. Elevated Troponins: no complaints of chest pain. Trended enzymes were flat at 0.22, 0.19, 0.19. EKG with no acute ST elevation/depression. Consulted cardiology. Monitor on telemetry. TRUDI on CKD, stage III: hypertensive renal disease. TRUDI secondary to dehydration with decreased recent oral intake. Given IVF. Avoid nephrotoxins. Consulted nephrology, appreciate input. Per hematology, unlikely multiple myeloma, defer bone biopsy for now given patient's comorbidities, monitor for now, follow-up as outpatient. Creatinine slightly worse today, likely secondary to poor oral intake, follow-up BMP. Pancreatic mass on CT of abdomen without contrast: marker studies normal. Oncology consulted. She is not a candidate for treatment (surgery, radiation, chemotherapy) should she have a pancreatic cancer. Recommended continued supportive care. Pulmonary Hypertension: seen on previous echo as above. Consulted pulmonology and cardiology, appreciate input. Follow-up as outpatient. Fall, Hip Pain: pt fell out of bed prior to arrival. CPK wnl. Hip/pelvis and femur xray negative for fracture. Patient needs rehabilitation, consult case management FEN: Removed feeding tube. Continue oral intake. Aspiration precautions. May need mittens. Consulted dietitian, calorie count 09/30-10/02. DVT Prophylaxis: heparin sq Written by Ankur Lizarraga, acting as scribe for Dr. Louis on 10/03/16 at 14:17. All or portions of this note were transcribed by scribe []. I, Dr. Dwain Louis personally performed the history, physical exam, and medical decision making; and confirmed the accuracy of the information in the transcribed note. Authenticated by Dr. Dwain Louis on 10/03/16 at 16:48. Discharge Planning Strongly recommended SNF, patient and family refused SNF placement at this time. BP still uncontrolled. Creatinine is slightly worse this time. Not yet safe for home with [facility]. Ankur Lizarraga Oct 03, 2016 14:18 Dwain Louis MD Oct 03, 2016 16:48
[2016-10-03 16:00] VITALS: BP 130/69; PULSE 61; RESP 12; TEMP 97.7; O2SAT 96
[2016-10-03] MEDS ORDERED: REMOVE OLD PATCH T-DERMAL SCH (17:45)
[2016-10-03 20:00] VITALS: BP 158/86; PULSE 65; RESP 21; TEMP 98.3; O2SAT 98
--- NOTE | 2016-10-03 21:34 | HHI.PR ---
Subjective Remarks 71 YOAA female with HTN,PHTN,mild sob Breathing better family at BS Awake, follows commands Appetite better Objective Vital Signs Vital Signs Date Time Temp Pulse Resp B/P Pulse Ox O2 Delivery O2 Flow Rate FiO2 10/03/16 16:00 97.7 61 12 130/69 96 10/03/16 12:00 98.0 61 14 110/67 96 10/03/16 08:00 98.2 64 16 170/95 100 10/03/16 04:00 98.0 80 20 146/84 97 10/03/16 00:00 98.4 70 18 161/80 98 I/O 10/02/16 10/02/16 10/02/16 10/03/16 10/03/16 10/03/16 07:00 15:00 23:00 07:00 15:00 23:00 Intake Total 240 ml 120 ml 1455 ml 480 ml 180 ml Output Total 300 ml 400 ml 650 ml Balance -60 ml 120 ml 1055 ml -170 ml 180 ml Intake Oral 240 ml 120 ml 320 ml 480 ml 180 ml IV Total 1135 ml Output Urine Total 300 ml 400 ml 650 ml # Voids 3 1 # Bowel Movements 0 1 0 0 0 Result Diagram: 09/30/16 0447 10/03/16 1030 Objective Remarks GENERAL: Elderly female,NAD SKIN: Warm and dry. HEAD: Normocephalic. EYES: No scleral icterus. No injection or drainage. NECK: Supple, trachea midline. No JVD or lymphadenopathy. CARDIOVASCULAR: Regular rate and rhythm without murmurs, gallops, or rubs. RESPIRATORY: Breath sounds equal bilaterally. No accessory muscle use. GASTROINTESTINAL: Abdomen soft, non-tender, nondistended. MUSCULOSKELETAL: No cyanosis, or edema. BACK: Nontender without obvious deformity. No CVA tenderness. A/P Assessment and Plan PHTN Uncontrolled HTN CVA H/O Fall PLAN DW family Neuro PANG underway Supplement 02 Monitor BP Stable pulm status DC Plans underway Vern Castanon MD Oct 03, 2016 21:34
[2016-10-03] MEDS: CARVEDILOL 6.25 MG TAB PO SCH (22:20)
[2016-10-04] VITALS: BP 141/73; PULSE 66; RESP 20; TEMP 98.9; O2SAT 95
[2016-10-04 04:00] VITALS: BP 161/81; PULSE 81; RESP 20; TEMP 99.3; O2SAT 95
[2016-10-04] MEDS: hydrALAZINE HCL 100 MG TAB NG SCH ×2 (06:36→13:19)
[2016-10-04] MEDS: SODIUM CHLOR 0.9% 1000 ML INJ 1,000 ML IV SCH (06:36)
[2016-10-04 08:00] VITALS: BP 184/88; PULSE 78; RESP 17; TEMP 99; O2SAT 96
[2016-10-04] MEDS: HEPARIN SODIUM - SQ 10,000 UNITS/ML VIAL SQ SCH (08:37)
[2016-10-04] MEDS: SORBITOL 70% SOLN 30 ML CUP NG SCH (08:38)
[2016-10-04] MEDS: CARVEDILOL 6.25 MG TAB PO SCH (08:38)
[2016-10-04] MEDS: SODIUM CHLORIDE 0.9% FLUSH 5 ML FLUSH FLUSH SCH (08:38)
[2016-10-04] MEDS: SODIUM BICARBONATE 650 MG TAB NG SCH (08:38)
[2016-10-04] MEDS: ASPIRIN EC 81 MG TABEC PO SCH (08:38)
[2016-10-04] MEDS: NIFEdipine 90 MG SUSTAINED RELEASE TAB PO SCH (08:38)
--- NOTE | 2016-10-04 11:39 | HHI.NPPN ---
Subjective General Problems: Anemia, Hypertension Renal Failure: Chronic, Acute, Stage IV History of Present Illness 71-year-old female with a past medical history of hypertension and history of chronic kidney disease who came to the hospital because of history of fall from the bed. The patient was admitted on September 14 and I was called to see the patient because of elevated BUN and creatinine. The patient previously has a known history of chronic kidney disease although she is not seeing any band presser on a regular basis. Her creatinine a year ago in August of 2015 was 2.1, and now she was admitted with a creatinine of 2.8. Additional Remarks Patient is alert, still not eating well, no SOB, not in distress. Review of Systems General Constitutional: Fatigue Cardiovascular Cardiac: VERGARA Objective Data Data 10/03/16 10/04/16 19:00 07:00 Intake Total 180 ml 1331 ml Output Total 300 ml Balance 180 ml 1031 ml Intake Oral 180 ml 480 ml IV Total 851 ml Output Urine Total 300 ml # Voids 1 4 # Bowel Movements 0 0 Vital Signs Date Time Temp Pulse Resp B/P Pulse Ox O2 Delivery O2 Flow Rate FiO2 10/04/16 08:36 Nasal Cannula 2.00 21 10/04/16 08:00 99.0 78 17 184/88 96 10/04/16 04:00 99.3 81 20 161/81 95 10/04/16 00:00 98.9 66 20 141/73 95 10/03/16 20:15 98 Room Air 10/03/16 20:00 98.3 65 21 158/86 98 10/03/16 16:00 97.7 61 12 130/69 96 10/03/16 12:00 98.0 61 14 110/67 96 -: 09/30/16 0447 10/03/16 1030 Physical Exam General Appearance: No Acute Distress, Comfortable Eyes Eye Exam: Pupils Equal Throat Throat Exam: Oral Mucosa Morse & Moist Neck Neck Exam: Neck Supple Pulmonary Resp Exam: No Distress, Rhonchi, Decreased Bases, Diminished Breath Sounds Cardiology CV Exam: Regular, Normal Sinus Rhythm Gastrointestinal/Abdomen GI Exam: Soft, Non-Tender, Bowel Sounds Present Extremeties Extremities Exam: No Edema Neurologic Neuro Exam: Alert, Awake Psychiatric Psych Exam: Appropriate Responses Assessment/Plan Assessment Summary: TRUDI/Acute Renal Failure, Anemia of CKD, Hypertension, CKD Stage IV Problem List: (1) Contusion, hip (2) UTI (urinary tract infection) (3) Dehydration (4) ARF (acute renal failure) (5) Accelerated hypertension (6) [id number]-[id number] kidney injury Plan Patient has been non oliguric, voiding Has chronic kidney disease, possibly related to Hypertensive renal disease, Hematology input appreciated BM biopsy not planned due to comorbid condition, and stability of her disease. Also has suspected Pancreatic mass, recommended no further workup as she is not a candidate for any treatment. BP is slightly elevated, started on Coreg last night. Has an element of TRUDI, possibly ATN. No new BMP. Need to encourage oral intake. Problem Qualifiers (1) Contusion, hip: Qualified Code: S70.00XA - Contusion of hip, unspecified laterality, initial encounter (2) UTI (urinary tract infection): Qualified Code: N39.0 - Urinary tract infection without hematuria, site unspecified (3) ARF (acute renal failure): Qualified Code: N17.9 - Acute renal failure, unspecified acute renal failure type Danie Sanchez MD Oct 04, 2016 11:39
[2016-10-04 12:00] VITALS: BP 140/79; PULSE 68; RESP 17; TEMP 98.6; O2SAT 97
[2016-10-04 13:08] LABS: BICARBONATE 18.9 MEQ/L (21.0-32.0); MAGNESIUM 1.7 MG/DL (1.5-2.5); POTASSIUM 4.6 MEQ/L (3.5-5.1)
--- NOTE | 2016-10-04 13:20 | HHI.PR ---
Subjective Remarks Follow up for CVA, poor oral intake. The patient states she is eating "all" of her meals. She adamantly denies feeding tube as she states she is eating. Denies any other medical complaints. She continues to decline SNF placement, wants to go home. Objective Vitals Vital Signs Date Time Temp Pulse Resp B/P Pulse Ox O2 Delivery O2 Flow Rate FiO2 10/04/16 12:00 98.6 68 17 140/79 97 10/04/16 08:36 Nasal Cannula 2.00 21 10/04/16 08:00 99.0 78 17 184/88 96 10/04/16 04:00 99.3 81 20 161/81 95 10/04/16 00:00 98.9 66 20 141/73 95 10/03/16 20:15 98 Room Air 10/03/16 20:00 98.3 65 21 158/86 98 10/03/16 16:00 97.7 61 12 130/69 96 I/O 10/03/16 10/03/16 10/03/16 10/04/16 10/04/16 10/04/16 07:00 15:00 23:00 07:00 15:00 23:00 Intake Total 480 ml 180 ml 778 ml 553 ml Output Total 650 ml 300 ml Balance -170 ml 180 ml 778 ml 253 ml Intake Oral 480 ml 180 ml 240 ml 240 ml IV Total 538 ml 313 ml Output Urine Total 650 ml 300 ml # Voids 1 2 2 # Bowel Movements 0 0 0 0 Result Diagram: 09/30/16 0447 10/04/16 1239 Imaging Last Impressions Abdomen X-Ray 09/27/16 0000 Signed Impressions: Service Date/Time: September 00:55 - CONCLUSION: 1. NG tube in the expected location of the gastric lumen. 2. Bibasilar effusion/atelectasis. Charlie Babb MD Head CT 09/25/16 0000 Signed Impressions: Service Date/Time: Sunday, September 25, 2016 11:24 - CONCLUSION: 1. Stable noncontrast head CT. No acute intracranial abnormality is identified. 2. Chronic changes include generalized atrophy and moderate severity periventricular white matter low-attenuation characteristic of chronic microvascular ischemia. Sanket Weeks MD Carotid Artery Ultrasound 3/7/17 0000 Signed Impressions: Service Date/Time: Sunday, September 25, 2016 22:39 - CONCLUSION: 1. Calcified atherosclerotic plaquing in both carotid bulbs extending into the bifurcations. 2. Doppler velocities and ratios suggest a less than 50%% stenosis in the left internal carotid. 3. No significant stenosis on the right. Antegrade flow in both vertebral arteries. Charlie Babb MD Brain MRI 09/25/16 Signed Impressions: Service Date/Time: Sunday, September 25, 2016 15:01 - CONCLUSION: 1. Examination is severely degraded by motion artifact. 2. There is a punctate area of suspected restricted diffusion in the right parietal subcortical white matter in the mid convexity. This may represent a focal area of ischemia. 3. Background severe periventricular and subcortical white matter signal change characteristic of chronic microvascular ischemia. Sanket Weeks MD Chest X-Ray 09/18/16 Signed Impressions: Service Date/Time: Sunday, September 18, 2016 22:55 - CONCLUSION: 1. Bilateral mostly basilar airspace disease with cardiomegaly. Differential diagnosis includes mild edema and atelectasis/consolidation. Riky Elmore MD Hip and Pelvis X-Ray 09/14/16 0634 Signed Impressions: Service Date/Time: Wednesday, September 14, 2016 07:09 - CONCLUSION: Osteopenia. No acute abnormality. Fito Diaz Jr., MD Femur X-Ray 09/14/16 0634 Signed Impressions: Service Date/Time: Wednesday, September 14, 2016 07:12 - CONCLUSION: No acute abnormality. Fito Diaz Jr., MD Renal Ultrasound 09/14/16 Signed Impressions: Service Date/Time: Wednesday, September 14, 2016 10:20 - CONCLUSION: 1. Increased echogenicity of the renal parenchyma. This is usually associated with chronic medical renal disease. 2. Mild hydronephrosis of the left collecting system. 3. Benign appearing left renal cysts. 4. Possible nonobstructing right kidney stone. Recommend noncontrast CT abdomen as clinically indicated. Elías Mares MD Abdomen/Pelvis CT 09/14/16 Signed Impressions: Service Date/Time: Wednesday, September 14, 2016 19:43 - CONCLUSION: 1. No stones , hydronephrosis or other acute abnormalities seen of the kidneys. 2. Suspected mass of the pancreatic head. Further attempted characterization with a nonemergent contrast enhanced study is recommended, preferably abdomen MRI. 3. Severe chronic vascular disease. 4. Mild airspace opacities of both visualized lung bases. 5. Panchamber enlargement of the heart and coronary artery calcification. Snaket Marinelli MD Objective Remarks GENERAL: Well-nourished, well-developed elderly female patient in NAD. More awake and alert. SKIN: Warm and dry. No rash. HEENT: Normocephalic. Atraumatic. Pupils equal and round. No scleral icterus. No injection or drainage. Mucous membranes pink and moist. NECK: Supple. Trachea midline. CARDIOVASCULAR: Regular rate and rhythm. S1, S2 noted. No murmur appreciated. RESPIRATORY: No accessory muscle use. Clear to auscultation. Breath sounds equal bilaterally. GASTROINTESTINAL: Abdomen soft, non-tender, nondistended. Normoactive bowel sounds x4. +abdominal bruit. MUSCULOSKELETAL: No obvious deformities. No edema. NEUROLOGICAL: Awake and alert, but drowsy. No obvious cranial nerve deficits. Moving all extremities spontaneously, LUE slightly weaker than RUE. Speech minimally slowed but more clear, no slurring. No obvious facial droop. PSYCHIATRIC: Appropriate mood and affect; insight and judgment fair. Procedures None Medications and IVs Current Medications Medications (Trade) Dose Ordered Sig/Lenora Route Start Time Stop Time Status Last Admin (NS Flush) 2 ml UNSCH PRN FLUSH 09/14/16 09:30 09/19/16 01:49 (NS Flush) 2 ml BID FLUSH 09/14/16 21:00 10/01/16 20:16 (Heparin Inj) 5,000 units Q12H SQ 09/14/16 10:00 10/04/16 08:37 (Narcan Inj) 0.4 mg UNSCH PRN IV 09/14/16 09:30 (Procardia Xl) 90 mg DAILY PO 09/21/16 09:00 10/04/16 08:38 (Nitroglycerin 2% Oint) 0.5 inch Q6HR PRN TOPICAL 09/26/16 16:00 09/26/16 20:48 Miscellaneous Information 1 Q7D T-DERMAL 10/03/16 17:45 (Apresoline) 100 mg Q8HR NG 09/27/16 06:00 10/04/16 06:36 (Tylenol) 650 mg Q4H PRN NG 09/27/16 12:00 (Catapres) 0.1 mg Q6H PRN NG 09/27/16 13:00 10/02/16 08:42 (Sodium Bicarbonate) 650 mg Q12HR NG 09/27/16 09:00 10/04/16 08:38 (Sorbitol 70% Liq) 30 ml DAILY NG 09/27/16 09:00 10/04/16 08:38 (Aspirin Supp) 300 mg DAILY PRN RECTAL 09/27/16 10:56 (Ecotrin Ec) 81 mg DAILY PO 09/28/16 09:00 10/04/16 08:38 Clonidine 1 patch 1 patch Q7D PRN TD 09/30/16 09:45 (NS 1000 ml Inj) 1,000 ml @ 70 mls/hr [id number] IV 09/30/16 15:45 10/04/16 06:36 (Coreg) 6.25 mg Q12HR PO 10/03/16 21:00 10/04/16 08:38 Date of Insertion: Sep 14, 2016 Date of Removal: Sep 16, 2016 A/P Problem List: (1) Accelerated hypertension ICD Code: I10 Status: Acute Assessment and Plan 70-year-old female with history of hypertension, edema, CKD, weakness presents after falling out the bed on 09/13 prior to arrival Stroke alert 09/25: Neurology was consulted. TIA vs CVA. MRI with changes in the right parietal suggestive of ischemia. S/P permissive hypertension. LDL 47. A1c 5.3. PT/OT/ST. Continue aspirin. Neurochecks. Echocardiogram EF of 60% . Improving mental status. Patient and family adamantly does not want rehab , will be discharged home. Generalized weakness/fatigue with encephalopathy: likely multifactorial secondary to hypertensive encephalopathy, dehydration, and recent fall. See treatment below. Head CT with old ischemic changes, no acute findings. PT/OT/ ST. Hypertensive Encephalopathy secondary to Accelerated HTN: BP 200/106 upon arrival. Holding off on SHELL/ARB secondary to TRUDI/CKD. Uncontrolled secondary to permissive hypertension but has been cleared to restart BP medications by neurology. Restarted Coreg, nifedipine, hydralazine. Carvedilol decreased to 3.125 with bradycardia, increased 6.25 with continued hypertension. Clonidine patch as needed. Monitor and adjust meds as needed. BP much better controlled. Possible CHF Exacerbation: BNP elevated at 990. CXR with mild cardiomegaly, no acute findings. Trace BLE edema. Echo 09/06/15 showed normal systolic function EF 55-60%, mild MR, mild TR, mild to mod increased pulmonary arterial pressure. Consulted patient's banking services officer, appreciate input. Pulmonology on board for pulm HTN. Elevated Troponins: no complaints of chest pain. Trended enzymes were flat at 0.22, 0.19, 0.19. EKG with no acute ST elevation/depression. Consulted cardiology. Monitor on telemetry. TRUDI on CKD, stage IV: hypertensive renal disease. TRUDI secondary to dehydration with decreased recent oral intake. Given IVF. Avoid nephrotoxins. Consulted nephrology, appreciate input. Per hematology, unlikely multiple myeloma, defer bone biopsy for now given patient's comorbidities, monitor for now, follow-up as outpatient. Monitor BMP. Per nephrology, patient likely at new baseline. Pancreatic mass on CT of abdomen without contrast: marker studies normal. Oncology consulted. She is not a candidate for treatment (surgery, radiation, chemotherapy) should she have a pancreatic cancer. Recommended continued supportive care. Pulmonary Hypertension: seen on previous echo as above. Consulted pulmonology and cardiology, appreciate input. Follow-up as outpatient. Fall, Hip Pain: pt fell out of bed prior to arrival. CPK wnl. Hip/pelvis and femur xray negative for fracture. Consult case management for d/c planning. FEN: Removed feeding tube. Continue oral intake. Aspiration precautions. May need mittens. Consulted dietitian, 72hr Calorie Count 09/30 through 10/02 w/ Adequate po intake for Protein and Inadequate po intake for kcal needs; however meals during Calorie Count pt on pureed diet except for one meal-diet now advanced per ST. Trial of Suplena supplement bid. Pt needs encouragement to eat. DVT Prophylaxis: heparin sq Written by Tri Banegas, acting as scribe for Dr. Louis on 10/04/16 at 12: 30. All or portions of this note were transcribed by scribe []. I, Dr. Dwain Louis personally performed the history, physical exam, and medical decision making; and confirmed the accuracy of the information in the transcribed note. Authenticated by Dr. Dwain Louis on 10/04/16 at 14:38. Discharge Planning Patient and family adamantly refuses rehab placement although strongly recommended. Will be going home with [facility], likely today. Tri Banegas PA-C Oct 04, 2016 13:20 Dwain Louis MD Oct 04, 2016 14:39
[2016-10-04] MEDS ORDERED: CARV6.25 PO (13:23)
--- NOTE | 2016-10-04 13:40 | HHI.DS ---
cc: Vern Castanon MD; Tonio Puente MD; Dr. Sparkle Maldonado; Danie Sanchez MD Discharge Summary Admission Date Sep 14, 2016 at 9:28 am Discharge Date: Oct 04, 2016 Admitting Diagnosis Uti, acute on chronic kidney injury, uncontrolled hypertension. (1) CVA (cerebral vascular accident) ICD Code: I63.9 Diagnosis: Principal (2) Accelerated hypertension ICD Code: I10 Diagnosis: Secondary (3) Malignant hypertension (arteriolar nephrosclerosis) ICD Code: I12.9 Diagnosis: Secondary (4) Rrlih-nd-wqjposg kidney injury ICD Code: N17.9 Diagnosis: Secondary (5) Chronic kidney disease (CKD), stage IV (severe) ICD Code: N18.4 Diagnosis: Secondary (6) Inadequate oral intake ICD Code: R63.8 Diagnosis: Secondary Procedures None Brief History - From Admission 70-year-old female with history of hypertension, edema, CKD, weakness presents after falling out the bed last night 09/13. The patient tried getting out of bed last night to use the restroom however fell from the bed. She was found this morning around 4am by family members. It is unknown how long she was on the floor. Per her daughters at bedside, the patient ran out of her medications 1 month ago and they have had trouble getting her into see her PCP Dr. Sparkle Maldonado. The family states when she was on the medications, she was more drowsy and slept a lot, however since she went off her medications, she has been more active over the past month. Now over the past 2 days, the patient has pretty much stayed in bed and slept, complained of being cold but no fevers. The family reports recent diarrhea approximately 2 weeks ago but it went away on its own. Denies any recent headache, lightheadedness, dizziness, unilateral numbness/weakness, chest pain, shortness of breath, or abdominal complaints. Denies any dysuria, suprapubic pain, increased urinary frequency/urgency. The patient did complain of right hip/leg pain upon arrival and was given IV morphine with relief however patient was quite drowsy throughout exam. CBC/BMP: 09/30/16 0447 10/04/16 1239 Significant Findings Laboratory Tests Test 10/02/16 10/03/16 10/04/16 04:59 10:30 12:39 Chloride Level 113 MEQ/L 116 MEQ/L 114 MEQ/L (98-107) (98-107) (98-107) Carbon Dioxide Level 20.8 MEQ/L 20.6 MEQ/L 18.9 MEQ/L (21.0-32.0) (21.0-32.0) (21.0-32.0) Blood Urea Nitrogen 47 MG/DL (7-18) 45 MG/DL (7-18) 43 MG/DL (7-18) Creatinine 3.17 MG/DL 3.24 MG/DL 3.25 MG/DL (0.50-1.00) (0.50-1.00) (0.50-1.00) Estimat Glomerular Filtration 17 ML/MIN (>89) 17 ML/MIN (>89) 17 ML/MIN (>89) Rate Imaging Last Impressions Abdomen X-Ray 09/27/16 0000 Signed Impressions: Service Date/Time: September 00:55 - CONCLUSION: 1. NG tube in the expected location of the gastric lumen. 2. Bibasilar effusion/atelectasis. Charlie Babb MD Head CT 09/25/16 0000 Signed Impressions: Service Date/Time: Sunday, September 25, 2016 11:24 - CONCLUSION: 1. Stable noncontrast head CT. No acute intracranial abnormality is identified. 2. Chronic changes include generalized atrophy and moderate severity periventricular white matter low-attenuation characteristic of chronic microvascular ischemia. Sanket Weeks MD Carotid Artery Ultrasound 09/25/16 0000 Signed Impressions: Service Date/Time: Sunday, September 25, 2016 22:39 - CONCLUSION: 1. Calcified atherosclerotic plaquing in both carotid bulbs extending into the bifurcations. 2. Doppler velocities and ratios suggest a less than 50%% stenosis in the left internal carotid. 3. No significant stenosis on the right. Antegrade flow in both vertebral arteries. Charlie Babb MD Brain MRI 09/25/16 0000 Signed Impressions: Service Date/Time: Sunday, September 25, 2016 15:01 - CONCLUSION: 1. Examination is severely degraded by motion artifact. 2. There is a punctate area of suspected restricted diffusion in the right parietal subcortical white matter in the mid convexity. This may represent a focal area of ischemia. 3. Background severe periventricular and subcortical white matter signal change characteristic of chronic microvascular ischemia. Sanket Weeks MD Chest X-Ray 09/18/16 Signed Impressions: Service Date/Time: Sunday, September 18, 2016 22:55 - CONCLUSION: 1. Bilateral mostly basilar airspace disease with cardiomegaly. Differential diagnosis includes mild edema and atelectasis/consolidation. Riky Elmore MD Hip and Pelvis X-Ray 09/14/16633 Signed Impressions: Service Date/Time: Wednesday, September 14, 2016 07:09 - CONCLUSION: Osteopenia. No acute abnormality. Fito Diaz Jr., MD Femur X-Ray 09/14/1634 Signed Impressions: Service Date/Time: Wednesday, September 14, 2016 07:12 - CONCLUSION: No acute abnormality. Fito Diaz Jr., MD Renal Ultrasound 09/14/16 Signed Impressions: Service Date/Time: Wednesday, September 14, 2016 10:20 - CONCLUSION: 1. Increased echogenicity of the renal parenchyma. This is usually associated with chronic medical renal disease. 2. Mild hydronephrosis of the left collecting system. 3. Benign appearing left renal cysts. 4. Possible nonobstructing right kidney stone. Recommend noncontrast CT abdomen as clinically indicated. Elías Mares MD Abdomen/Pelvis CT 09/14/16 Signed Impressions: Service Date/Time: Wednesday, September 14, 2016 19:43 - CONCLUSION: 1. No stones , hydronephrosis or other acute abnormalities seen of the kidneys. 2. Suspected mass of the pancreatic head. Further attempted characterization with a nonemergent contrast enhanced study is recommended, preferably abdomen MRI. 3. Severe chronic vascular disease. 4. Mild airspace opacities of both visualized lung bases. 5. Panchamber enlargement of the heart and coronary artery calcification. Sanket Marinelli MD PE at Discharge GENERAL: Well-nourished, well-developed elderly female patient in NAD. More awake and alert. SKIN: Warm and dry. No rash. HEENT: Normocephalic. Atraumatic. Pupils equal and round. No scleral icterus. No injection or drainage. Mucous membranes pink and moist. NECK: Supple. Trachea midline. CARDIOVASCULAR: Regular rate and rhythm. S1, S2 noted. No murmur appreciated. RESPIRATORY: No accessory muscle use. Clear to auscultation. Breath sounds equal bilaterally. GASTROINTESTINAL: Abdomen soft, non-tender, nondistended. Normoactive bowel sounds x4. +abdominal bruit. MUSCULOSKELETAL: No obvious deformities. No edema. NEUROLOGICAL: Awake and alert, but drowsy. No obvious cranial nerve deficits. Moving all extremities spontaneously, LUE slightly weaker than RUE. Speech minimally slowed but more clear, no slurring. No obvious facial droop. PSYCHIATRIC: Appropriate mood and affect; insight and judgment fair. Hospital Course 70-year-old female with history of hypertension, edema, CKD, weakness presents after falling out the bed on 09/13 prior to arrival Stroke alert 09/25: Neurology was consulted. TIA vs CVA. MRI with changes in the right parietal suggestive of ischemia. S/P permissive hypertension. LDL 47. A1c 5.3. PT/OT/ST. Continue aspirin. Neurochecks. Echocardiogram EF of 60% . Improving mental status. Patient and family adamantly does not want rehab , will be discharged home. Generalized weakness/fatigue with encephalopathy: likely multifactorial secondary to hypertensive encephalopathy, dehydration, and recent fall. See treatment below. Head CT with old ischemic changes, no acute findings. PT/OT/ ST. Hypertensive Encephalopathy secondary to Accelerated HTN: BP 200/106 upon arrival. No SHELL/ARB secondary to TRUDI/CKD. Uncontrolled secondary to permissive hypertension but has been cleared to restart BP medications by neurology. Restarted Coreg, nifedipine, hydralazine. Carvedilol decreased to 3.125 with bradycardia, increased 6.25 with continued hypertension, vitals now stable, BP much better controlled. Possible CHF Exacerbation: BNP elevated at 990. CXR with mild cardiomegaly, no acute findings. Trace BLE edema. Echo 09/06/15 showed normal systolic function EF 55-60%, mild MR, mild TR, mild to mod increased pulmonary arterial pressure. Consulted patient's casing blower, appreciate input. Pulmonology on board for pulm HTN, outpatient f/up with pulm. Elevated Troponins: Trended enzymes were flat at 0.22, 0.19, 0.19. EKG with no acute ST elevation/depression. Consulted cardiology. Monitor on telemetry. No complaints of chest pain. TRUDI on CKD, stage IV: hypertensive renal disease. TRUDI secondary to dehydration with decreased recent oral intake. Given IVF. Avoid nephrotoxins. Consulted nephrology, appreciate input. Per hematology, unlikely multiple myeloma, defer bone biopsy for now given patient's comorbidities, monitor for now, follow-up as outpatient. Monitor BMP. Per nephrology, patient likely at new baseline, outpatient f/up. Pancreatic mass on CT of abdomen without contrast: marker studies normal. Oncology consulted. She is not a candidate for treatment (surgery, radiation, chemotherapy) should she have a pancreatic cancer. Recommended continued supportive care. Pulmonary Hypertension: seen on previous echo as above. Consulted pulmonology and cardiology, appreciate input. Follow-up as outpatient. Continue oxygen. Fall, Hip Pain: pt fell out of bed prior to arrival. CPK wnl. Hip/pelvis and femur xray negative for fracture. Consult case management for d/c planning, patient refuses rehab, going home with C. FEN: Removed feeding tube. Continue oral intake. Aspiration precautions. Consulted dietitian, 72hr Calorie Count 09/30 through 10/02 w/Adequate po intake for Protein and Inadequate po intake for kcal needs; however meals during Calorie Count pt on pureed diet except for one meal-diet now advanced per ST. Trial of Suplena supplement bid. Pt needs encouragement to eat. DVT Prophylaxis: heparin sq Written by Tri Banegas, acting as scribe for Dr. Louis on 10/04/16 at 12:30. All or portions of this note were transcribed by scribe []. I, Dr. Dwain Louis personally performed the history, physical exam, and medical decision making; and confirmed the accuracy of the information in the transcribed note. Authenticated by Dr. Dwain Louis on 10/04/16 at 14:39. Pt Condition on Discharge: Good Discharge Disposition: Disch w/ Home Health Serv Discharge Time: > 30 minutes Discharge Instructions DIET: Follow Instructions for: Heart Healthy Diet Speech Therapy-Diet Recommends: Mechanical Soft, Chopped Meat w/Gravy Additional Diet Instructions: ok to have thin liquids. Add Suplena to 2 meals a day. Doris will need a lot of encouragement by family and HHC to eat. If the patient does not have adequate oral intake, may need placement of feeding tube in the future although the patient refuses tube at this time. Activities you can perform: Regular-No Restrictions Follow up Referrals: Nephrology - 1 Week with Danie Sanchez MD Oncology - 10/22/16 with Romel Mcconnell MD PCP Follow-up - 1 Week Pulmonology - 1 Week with Vern Castanon MD New Medications: Hydralazine (Hydralazine) 100 Mg Tab 100 MG PO q8h Take with meals Blood Pressure Management #90 Ref 0 TAB Oxygen tank (Oxygen tank) 1 Ea Tank 2 LITER ALISTAIR.CANULA CONTINUOUS Oxygen Concentrator Portable Gaseous 2 L/min via Nasal Cannula Continuous For 99 months HYPOXEMIA PREVENTION #[address] (Aspirin EC) 81 Mg Tabdr 81 MG PO DAILY CVA #30 TAB Carvedilol (Coreg) 12.5 Mg Tab 25 MG NG Q12HR Blood Pressure Management #60 TAB Carvedilol (Coreg) 6.25 Mg Tab 6.25 MG PO Q12HR Blood Pressure Management #30 TAB Nifedipine (Nifedipine ER) 90 Mg Tab 90 MG PO DAILY htn #30 TAB Sodium Bicarbonate (Sodium Bicarbonate) 650 Mg Tab 650 MG PO Q12HR stomach #60 TAB Sorbitol Liq (Sorbitol Liq) 70 % Elaine 30 ML NG DAILY Prevent Constipation #30 ML Tri Banegas PA-C Oct 04, 2016 13:40 Dwain Louis MD Oct 04, 2016 14:39
--- NOTE | 2016-10-04 15:27 | HHI.FF ---
Face to Face Verification Diagnosis: (1) CVA (cerebral vascular accident) (2) Inadequate oral intake (3) Chronic kidney disease (CKD), stage IV (severe) (4) [id number] kidney injury (5) Accelerated hypertension Physical Therapy Order: Evaluate and Treat, Improve ambulation, Strength and gait training Occupational Therapy Order: Evaluate and Treat, Improve ADL Home Health Nursing Order: Medical education Signs/symptoms of disease process Nursing assessment with vital signs I have seen patient Doris Noel on 10/04/16. My clinical findings support the need for the requested home health care services because: Ltd mobility - disease progression Deconditioned w/ increased weakness Med compliance is questionable Limited ability to care for self Impaired cognition/judgement I certify that my clinical findings support that this patient is homebound because: Impaired cognitive ability/safety Unsteady gait/balance Unsafe to leave home unassisted Unable to use public transportation Tri Banegas PA-C Oct 04, 2016 3:27 pm
[2016-10-04 16:00] VITALS: BP 132/74; PULSE 60; RESP 18; TEMP 97.5; O2SAT 97
--- NOTE | 2016-10-04 17:01 | HHI.PR ---
Subjective Remarks 71 YOAA female with HTN,PHTN,mild sob Breathing better family at BS Awake, follows commands Appetite better Weak Objective Vital Signs Vital Signs Date Time Temp Pulse Resp B/P Pulse Ox O2 Delivery O2 Flow Rate FiO2 10/04/16 12:00 98.6 68 17 140/79 97 10/04/16 08:36 Nasal Cannula 2.00 21 10/04/16 08:00 99.0 78 17 184/88 96 10/04/16 04:00 99.3 81 20 161/81 95 10/04/16 00:00 98.9 66 20 141/73 95 10/03/16 20:15 98 Room Air 10/03/16 20:00 98.3 65 21 158/86 98 I/O 10/03/16 10/03/16 10/03/16 10/04/16 10/04/16 10/04/16 07:00 15:00 23:00 07:00 15:00 23:00 Intake Total 480 ml 180 ml 778 ml 553 ml 455 ml Output Total 650 ml 300 ml Balance -170 ml 180 ml 778 ml 253 ml 455 ml Intake Oral 480 ml 180 ml 240 ml 240 ml IV Total 538 ml 313 ml 455 ml Output Urine Total 650 ml 300 ml # Voids 1 2 2 # Bowel Movements 0 0 0 0 Result Diagram: 09/30/16 0447 10/04/16 1239 Objective Remarks GENERAL: Elderly female,NAD SKIN: Warm and dry. HEAD: Normocephalic. EYES: No scleral icterus. No injection or drainage. NECK: Supple, trachea midline. No JVD or lymphadenopathy. CARDIOVASCULAR: Regular rate and rhythm without murmurs, gallops, or rubs. RESPIRATORY: Breath sounds equal bilaterally. No accessory muscle use. GASTROINTESTINAL: Abdomen soft, non-tender, nondistended. MUSCULOSKELETAL: No cyanosis, or edema. BACK: Nontender without obvious deformity. No CVA tenderness. A/P Assessment and Plan PHTN Uncontrolled HTN CVA H/O Fall PLAN Supplement 02 Monitor BP DC Plans underway Vern Castanon MD Oct 04, 2016 17:01
--- NOTE | 2016-10-09 08:32 | PQ ---
Physician Query Response Document PATIENT: ASHLEE JEAN : 1945 ADMIT DATE: 09/14/2016 9:28 AM DISCH DATE: 10/04/2016 5:53 PM RESPONDING PROVIDER #: anabel QUERY TEXT: CHF Acuity and Type Congestive Heart Failure is documented in the Medical Record. Please document the type and acuity (in cludes probable or suspected) Such as: Type: -- Systolic -- Diastolic -- Combined -- Other, please specify Acuity: -- Acute -- Chronic -- Acute on chronic -- Other, please specify Also please document the underlying cause of the CHF (includes probable or suspected) The patient's Clinical Indicators include: 09/14 - H 09/15 Progress note: Possible CHF Exacerbation: BNP elevated at 990. CXR with mild cardiomegaly, no ac [place] findings,Echo 09/06/15 showed normal systolic function EF 55-60%, mild MR, mild TR, mild to mod in creased pulmonary arterial pressure ECHOCARDIOGRAM 09/15: EF 65-70% 09/20 Progress note: Possible CHF Exacerbation: BNP elevated at 990. CXR with mild cardiomegaly,. Echo 09/06/15 showed normal systolic function EF 55-60%, mild MR, mild TR, mild to mod increased pulmonary arterial pressure. Query created by: Brenda Valera on 09/21/2016 10:25 AM RESPONSE TEXT: Acute diastolic CHF Electronically signed by: Arin Campo MD 10/09/2016 8:28 AM
== END 2016-10-04 17:53 | disposition home health service (06) | DRG 682 ==
LOC: NEPE 05:55 → NEDA 09:28 → N07A 14:16
PROVIDERS: ADMIT Internal Medicine; ATTEND Internal Medicine
PROC: 0T9B70Z Drainage of Bladder with Drainage Device, Via Natural or Artificial Opening (ICD-10-PCS; principal; 2016-09-14)
DX: I12.9 Hypertensive chronic kidney disease with stage 1 through stage 4 chronic kidney disease, or unspecified chronic kidney disease (principal); I63.9 Cerebral infarction, unspecified; E87.2 Acidosis; N17.9 Acute kidney failure, unspecified; I67.4 Hypertensive encephalopathy; N18.4 Chronic kidney disease, stage 4 (severe); I27.2 Other secondary pulmonary hypertension; R13.10 Dysphagia, unspecified; I50.9 Heart failure, unspecified; N39.0 Urinary tract infection, site not specified; I69.351 Hemiplegia and hemiparesis following cerebral infarction affecting right dominant side; N13.30 Unspecified hydronephrosis; N28.1 Cyst of kidney, acquired; D47.2 Monoclonal gammopathy; F03.90 Unspecified dementia, unspecified severity, without behavioral disturbance, psychotic disturbance, mood disturbance, and anxiety; E86.0 Dehydration; M25.551 Pain in right hip; S70.01XA Contusion of right hip, initial encounter; Y93.9 Activity, unspecified; Y92.9 Unspecified place or not applicable; W06.XXXA Fall from bed, initial encounter; Y92.003 Bedroom of unspecified non-institutional (private) residence as the place of occurrence of the external cause; F32.9 Major depressive disorder, single episode, unspecified; M10.9 Gout, unspecified; Z91.14 Patient's other noncompliance with medication regimen; I08.1 Rheumatic disorders of both mitral and tricuspid valves; M85.80 Other specified disorders of bone density and structure, unspecified site; R09.02 Hypoxemia; M19.90 Unspecified osteoarthritis, unspecified site; I25.9 Chronic ischemic heart disease, unspecified; B19.20 Unspecified viral hepatitis C without hepatic coma; I69.328 Other speech and language deficits following cerebral infarction; R32 Unspecified urinary incontinence; I73.9 Peripheral vascular disease, unspecified; Z87.891 Personal history of nicotine dependence; Z51.5 Encounter for palliative care; Z91.19 Patient's noncompliance with other medical treatment and regimen; R26.2 Difficulty in walking, not elsewhere classified; M54.5 Low back pain; D63.1 Anemia in chronic kidney disease; K86.9 Disease of pancreas, unspecified; K59.00 Constipation, unspecified
CPT/HCPCS: 36600; 70450; 70551; 71010; 73502; 73552; 74000; 74176; 76775; 80048; 80053; 80061; 80329; 81001; 82378; 82435; 82550; 82565; 82784; 82805; 82947; 83036; 83735; 83880; 83883; 84100; 84132; 84295; 84484; 84520; 85025; 85384; 85610; 85730; 86301; 86850; 86900; 86901; 87086; 93005; 93306; 93880; 94620; 94640; 94664; 96374; 96375; G0480; J0696; J1644; J1885; J1940; J2270; J2405; J7030

== ENCOUNTER 2018-01-09 21:15 | Inpatient (IN) ==
[2018-01-19] MEDS ORDERED: Acetaminophen 325 MG Tablet PO PRN (00:01)
[2018-01-19] MEDS ORDERED: Naloxone Inj 0.4 MG/ML Vial IV.PUSH PRN (00:01)
[2018-01-19] MEDS: WATER IV.SIG SCH ×2 (03:11)
[2018-01-19] MEDS: DEXTROSE 5% IV.SIG SCH ×2 (03:11)
[2018-01-19] MEDS: SODIUM BICARBONATE IV.SIG SCH ×2 (03:11)
[2018-01-19] MEDS: Oral Hygiene Kit OROPHARYNG SCH ×4 (03:11→15:22)
[2018-01-19] MEDS: Famotidine PF Inj 20 MG/2 ML Vial IV.PUSH SCH ×2 (06:40→17:08)
[2018-01-19] MEDS: NIFEdipine 10 MG Capsule NG/OG SCH ×3 (06:41→21:18)
[2018-01-19] MEDS: Chlorhexidine 0.12% Oral Kit 15 ML UDC SWISH-SPIT SCH ×2 (08:30→20:45)
[2018-01-19] MEDS: Ferrrous Sulfate 300 MG/5 ML UDC NG/OG SCH ×2 (09:07→20:45)
[2018-01-19] MEDS: Heparin - SQ 10,000 UNITS/ML Vial SQ SCH ×2 (09:08→20:45)
[2018-01-19] MEDS: Carvedilol 6.25 MG Tablet NG/OG SCH ×2 (09:08→20:45)
[2018-01-19] MEDS: Sodium Bicarbonate 650 MG Tablet NG/OG SCH ×2 (09:08→20:46)
[2018-01-19] MEDS: ERTAPENEM IV.SIG SCH (09:13)
[2018-01-19] MEDS: SODIUM CHLOR 0.9% IV.SIG SCH (09:13)
--- NOTE | 2018-01-19 09:37 | P.PNNEU ---
Subjective Subjective Comments: on vent Active Medications: Active Medications Generic Name Dose Route Start Last Admin Trade Name Freq PRN Reason Stop Dose Admin Acetaminophen 650 mg 01/19/18 00:01 Tylenol PO Q4H PRN PAIN, VALDEZ, TEMP>100.6 Albuterol 1 ampul 01/19/18 00:00 Duoneb Neb (Prn) NEB Q2HR NEB PRN SHORTNESS OF BREATH Albuterol 1 ampul 01/19/18 04:00 01/19/18 05:20 Duoneb Neb (Lenora) NEB 1 ampul Q6HR NEB LENORA Administration Aspirin 81 mg 01/19/18 09:00 01/19/18 09:08 Aspirin Chew CHEW 81 mg DAILY LENORA Administration Carvedilol 6.25 mg 01/19/18 09:00 01/19/18 09:08 Coreg NG/OG 6.25 mg Q12HR LENORA Administration Chlorhexidine Gluconate 15 ml 01/19/18 08:00 01/19/18 08:30 Peridex 0.12% Oral Kit SWISH-SPIT 15 ml BID@0800,2000 LENORA Administration Clonidine HCl 0.1 mg 01/19/18 00:01 Catapres NG/OG Q6H PRN SBP>160, DBP>90 Famotidine 10 mg 01/19/18 06:00 01/19/18 06:40 Pepcid Pf Inj IV.PUSH 10 mg Q12H LENORA Administration Ferrous Sulfate 300 mg 01/19/18 09:00 01/19/18 09:07 Ferrrous Sulfate Liq NG/OG 300 mg BID LENORA Administration Heparin Sodium (Porcine) 5,000 units 01/19/18 09:00 01/19/18 09:08 Heparin Inj SQ 5,000 units Q12HR LENORA Administration Hydralazine HCl 100 mg 01/19/18 04:00 01/19/18 06:40 Apresoline NG/OG 100 mg Q8H LENORA Administration Sodium Bicarbonate 100 meq/ 1,100 mls @ 75 mls/hr 01/19/18 00:01 01/19/18 03: 11 Dextrose IV.SIG Not Given .[id number] LENORA Ertapenem 500 mg/ Sodium 50 mls @ 100 mls/hr 01/19/18 10:00 01/19/18 09:13 Chloride IV.SIG 100 mls/hr Q24H LNEORA Administration Naloxone HCl 0.4 mg 01/19/18 00:01 Narcan Inj IV.PUSH UNSCH PRN SEE COMMENTS Nifedipine 30 mg 01/19/18 06:00 01/19/18 06:41 Procardia NG/OG 30 mg Q8HR LENORA Administration Sodium Bicarbonate 650 mg 01/19/18 09:00 01/19/18 09:08 Sodium Bicarbonate NG/OG 650 mg Q12HR LENORA Administration Sodium Chloride 2 ml 01/19/18 00:01 Ns Inj IV.FLUSH UNSCH PRN FLUSH AFTER USING IV ACCESS Sodium Chloride 2 ml 01/19/18 09:00 01/19/18 09:10 Ns Flush IV.FLUSH 2 ml BID LENORA Administration Vitamin D 5,000 unit 01/19/18 06:00 01/19/18 09:08 Vitamin D3 NG/OG 5,000 unit DAILY LENORA Administration Allergies/Adverse Reactions: Allergies Allergy/AdvReac Type Severity Reaction Status Date / Time No Known Allergies Allergy Unknown Uncoded 01/10/18 02:26 Physical Exam Vital signs: Vital Signs 01/19/18 04:00 01/19/18 05:21 Temperature 97.9 F Pulse Rate 68 66 Respiratory Rate 15 14 Blood Pressure 146/82 H Pulse Oximetry 97 97 Intake & Output 01/18/18 01/19/18 01/19/18 18:59 06:59 18:59 Intake Total 745 / 745 Output Total 500 / 500 Balance 245 / 245 Weight 80.4 kg Intake: Tube Feeding 595 / 595 Tube Irrigant 150 / 150 Output: Urine 500 / 500 Other: Date of Last Bowel Movement 01/18/18 # Bowel Movements 1 Narrative: on vent not follow commands will not open eyes no rxt threat Objective Laboratory Results - last 24 hr 01/15/18 01/16/18 01/16/18 16:55 06:06 06:06 WBC 5.7 RBC 2.40 L Hgb 6.8 L* Hct 20.3 L* MCV 84.6 MCH 28.1 MCHC 33.3 RDW 16.6 Plt Count 180 MPV 9.0 Neut % (Auto) 69.3 Lymph % (Auto) 15.6 [place] % (Auto) 12.4 H Eos % (Auto) 2.1 Baso % (Auto) 0.6 Neut # (Auto) 4.0 Lymph # (Auto) 0.9 L [place] # (Auto) 0.7 Eos # (Auto) 0.1 Baso # (Auto) 0.0 CBC Comment AUTO DIFF Total Counted Neutrophils % (Manual) Band Neutrophils % Lymphocytes % Monocytes % Eosinophils % Basophils % Neutrophils # (Manual) Metamyelocytes Myelocytes Nucleated RBCs Differential Comment AUTO DIFF CONFIRMED Platelet Estimate Plt Morphology Comment Ovalocytes 1+ H [place] Cells Acanthocytes (Spur) 1+ H Keratocytes OCC H PT INR APTT Sodium 143 Potassium 4.3 Chloride 112 H Carbon Dioxide 17.2 L Anion Gap 14 BUN 97 H D Creatinine 5.43 H Estimated GFR 9 L Random Glucose 156 H Calcium 7.5 L Phosphorus Magnesium 1.6 Total Bilirubin 0.3 AST 16 ALT LESS THAN 6 L Alkaline Phosphatase 52 Troponin I 0.15 H Total Protein 5.6 L D Albumin 1.8 L D Random Vancomycin 20.8 01/16/18 01/16/18 01/17/18 15:32 19:42 04:17 WBC RBC Hgb 8.1 L Hct 24.5 L MCV MCH MCHC RDW Plt Count MPV Neut % (Auto) Lymph % (Auto) [place] % (Auto) Eos % (Auto) Baso % (Auto) Neut # (Auto) Lymph # (Auto) [place] # (Auto) Eos # (Auto) Baso # (Auto) CBC Comment Total Counted Neutrophils % (Manual) Band Neutrophils % Lymphocytes % Monocytes % Eosinophils % Basophils % Neutrophils # (Manual) Metamyelocytes Myelocytes Nucleated RBCs Differential Comment Platelet Estimate Plt Morphology Comment Ovalocytes [place] Cells Acanthocytes (Spur) Keratocytes PT 13.6 H INR 1.3 APTT 33.1 H Sodium Potassium Chloride Carbon Dioxide Anion Gap BUN Creatinine Estimated GFR Random Glucose Calcium Phosphorus Magnesium Total Bilirubin AST ALT Alkaline Phosphatase Troponin I Total Protein Albumin Random Vancomycin 21.0 01/17/18 01/17/18 01/18/18 04:17 09:44 03:29 WBC 6.6 RBC 2.76 L Hgb 7.8 L Hct 23.4 L MCV 84.8 MCH 28.3 MCHC 33.4 RDW 16.1 Plt Count 209 MPV 9.0 Neut % (Auto) 66.4 Lymph % (Auto) 15.1 [place] % (Auto) 16.1 H Eos % (Auto) 2.0 Baso % (Auto) 0.4 Neut # (Auto) 4.4 Lymph # (Auto) 1.0 [place] # (Auto) 1.1 H Eos # (Auto) 0.1 Baso # (Auto) 0.0 CBC Comment AUTO DIFF Total Counted 100 Neutrophils % (Manual) 69 Band Neutrophils % 2 Lymphocytes % 11 Monocytes % 15 H Eosinophils % 1 Basophils % Neutrophils # (Manual) 4.8 Metamyelocytes 1 Myelocytes 1 H Nucleated RBCs Differential Comment FINAL DIFF MANUAL Platelet Estimate NORMAL Plt Morphology Comment NORMAL Ovalocytes [place] Cells 1+ H Acanthocytes (Spur) OCC H Keratocytes OCC H PT INR APTT Sodium 139 137 Potassium 4.2 4.2 Chloride 106 102 Carbon Dioxide 17.5 L 22.7 Anion Gap 16 H 12 BUN 105 H 111 H Creatinine 5.62 H 5.69 H Estimated GFR 9 L 9 L Random Glucose 146 H 161 H Calcium 7.6 L 7.8 L Phosphorus 3.2 Magnesium Total Bilirubin 0.3 0.3 AST 17 57 H ALT 11 LESS THAN 6 L Alkaline Phosphatase 52 82 Troponin I Total Protein 5.8 L 6.2 L Albumin 1.8 L 1.8 L Random Vancomycin 01/18/18 03:29 WBC 9.7 RBC 3.11 L Hgb 8.9 L Hct 26.4 L MCV 85.1 MCH 28.6 MCHC 33.6 RDW 15.9 Plt Count 243 MPV 8.8 Neut % (Auto) 70.2 H Lymph % (Auto) 12.0 [place] % (Auto) 15.7 H Eos % (Auto) 1.8 Baso % (Auto) 0.3 Neut # (Auto) 6.8 Lymph # (Auto) 1.2 [place] # (Auto) 1.5 H Eos # (Auto) 0.2 Baso # (Auto) 0.0 CBC Comment AUTO DIFF Total Counted 100 Neutrophils % (Manual) 72 H Band Neutrophils % Lymphocytes % 9 Monocytes % 15 H Eosinophils % 2 Basophils % 1 Neutrophils # (Manual) 7.1 Metamyelocytes Myelocytes 1 H Nucleated RBCs 2 H Differential Comment FINAL DIFF MANUAL Platelet Estimate NORMAL Plt Morphology Comment NORMAL Ovalocytes 1+ H [place] Cells Acanthocytes (Sp[place]) Keratocytes OCC H PT INR APTT Sodium Potassium Chloride Carbon Dioxide Anion Gap BUN Creatinine Estimated GFR Random Glucose Calcium Phosphorus Magnesium Total Bilirubin AST ALT Alkaline Phosphatase Troponin I Total Protein Albumin Random Vancomycin Review/Management - Review/Management Plan: imp px poor due to age mult cva dementia not improving neurowise echo The left ventricular systolic function is normal with an estimated ejection fraction in the range of 55-60%. Mild concentric left ventricular hypertrophy. Trace mitral valve regurgitation. Trace aortic valve regurgitation. There is mild tricuspid valve regurgitation. A left sided pleural effusion is present. i would support comfort measures on her
[2018-01-19 12:02] LABS: Baso % (Auto) 0.3 % (0.0-2.0); Eos # (Auto) 0.2 th/mm3 (0.0-0.4); Eos % (Auto) 2.1 % (0.0-4.0); Hematocrit 27.5 % (35.0-46.0); Hemoglobin 9.1 gm/dL (11.6-15.3); Lymph # (Auto) 0.9 th/mm3 (1.0-4.8); Lymph % (Auto) 8.1 % (9.0-44.0); Mean Corpuscular HGB Conc 32.9 % (32.0-36.0); Mean Corpuscular Hemoglobin 28.3 pg (27.0-34.0); Mono # (Auto) 1.3 th/mm3 (0.0-0.9); Neut # (Auto) 8.5 th/mm3 (1.8-7.7); Neut % (Auto) 77.5 % (16.0-70.0); Platelet Count 252 th/mm3 (150-450); Red Cell Distribution Width 15.7 % (11.6-17.2); White Blood Count 10.9 th/mm3 (4.0-11.0)
--- NOTE | 2018-01-19 12:55 | P.PNCC ---
Subjective Subjective Remarks/Hospital Course: Patient is a 72-year-old female with history of chronic kidney disease, dementia , hepatitis C, hypertension, monoclonal gammopathy who was admitted to the hospitalist service after she sustained right femoral neck fracture from a fall , she underwent right hip hemiarthroplasty 01/10/18. Patient has stage IV kidney disease and was admitted with BUN 78 creatinine of 4. Patient had been declining since admission was lethargic since yesterday. A CT of the head was negative. Became more unresponsive and unarousable since today afternoon. BUN/ creatinine today 104/5.74. Due to worsening mental status she was brought to the ICU and critical care medicine was consulted. Palliative care was consulted due to advanced dementia is worsening chronic kidney disease and encephalopathy but family wants aggressive care. I evaluated the patient in the ICU, patient is completely unresponsive, not waking up to painful stimuli. Gurgling breath sounds not protecting airway. Emergently intubated and placed on mechanical ventilation. Suctioned out large amount of moderate white to yellow thick secretions from the glottic opening. Patient probably has pneumonia based on secretions and bilateral alveolar infiltrates on chest x- ray. Worsening mental status most likely secondary to metabolic encephalopathy , antibiotics broadened to Zosyn and vancomycin. SUBJ 01/15: Remains intubated critically ill. BUN/creatinine remains elevated at 109/5.7. Chest x-ray shows persistent bilateral left more than right infiltrates. Patient remains encephalopathy go for sedation. Multiple nonsustained episodes of ventricular tachycardia. Had extensive discussion with daughter at the bedside and son over the phone. I encouraged him to consider DNR status given patient's dementia, worsening renal failure, cardiac dysrhythmias and sepsis now 01/16: Patient remains intubated off sedation for 24 hours. Remains unresponsive very slight withdrawal to pain. Sputum culture growing GNR. BUN creatinine slightly improved 97/5.43. Urine output approximately 800 mL in 24 hours. Hb 6.8, 1U PRBC ordered. Updated son at bedside 01/17: Remains severely encephalopathic. MRI brain yesterday shows multiple embolic lacunar infarct involving frontal lobes, right basal ganglia and left temporal occipital lobe. Severe diffuse periventricular and subcortical white matter small vessel ischemic changes are again noted. Pontine ischemic changes are also noted. Also diffuse probable amyloid angiopathy or hypertensive microhemorrhages, scattered old lacunar infarcts. Neurology had been consulted. Sputum culture growing ESBL E. coli Zosyn DC'd and ertapenem started 630: Remains severely encephalopathy. Continues to have no spontaneous eye opening. Renal function worsening. BUN/cr 111/5.7. Urine output 1 L in 24 hours 01/19: Remains intubated off all sedation no improvement in neuro status intermittently moves extremities spontaneously. Did not follow commands. Diminishing urine output 500 mL in 24 hours Objective Vital Signs / I&O: Vital Signs 01/19/18 04:00 01/19/18 05:21 01/19/18 08:00 Temperature 97.9 F 97.9 F Pulse Rate 68 66 61 Respiratory Rate 15 14 14 Blood Pressure 146/82 H 133/71 Pulse Oximetry 97 97 100 01/19/18 10:53 01/19/18 12:00 Temperature 97.9 F Pulse Rate 60 Respiratory Rate 14 14 Blood Pressure 146/80 H Pulse Oximetry 100 99 Intake & Output 01/18/18 01/19/18 01/19/18 18:59 06:59 18:59 Intake Total 745 / 745 Output Total 500 / 500 Balance 245 / 245 Weight 80.4 kg Intake: Tube Feeding 595 / 595 Tube Irrigant 150 / 150 Output: Urine 500 / 500 Other: Date of Last Bowel Movement 01/18/18 01/18/18 # Bowel Movements 1 Result Diagrams: 01/19/18 11:27 01/18/18 03:29 Objective Remarks: GENERAL: -[place] female lying in bed, off all sedation, remains encephalopathic SKIN: No rashes, ecchymoses or lesions. HEAD: Atraumatic. Normocephalic. EYES: Pupils equal round. No spontaneous eye opening ENT: Nose without bleeding, Edentulous. Orotracheally intubated NECK: Trachea midline. No JVD or lymphadenopathy. CARDIOVASCULAR: S1 S2 normal rhythm without murmurs, gallops, or rubs. RESPIRATORY: Diminished breath sounds with coarse rhonchi bilaterally. GASTROINTESTINAL: Abdomen soft, nondistended. Nontender MUSCULOSKELETAL:Bilateral lower extremities neurovascularly intact. NEUROLOGICAL: Patient remains unresponsive off sedation. Slight withdrawal of extremities noted with painful stimuli, no eye opening. Spontaneously moves extremities intermittently Assessment and Plan - Assessment and Plan Plan: A/P Assessment and Plan ASSESSMENT/PLAN: NEURO: Acute metabolic encephalopathy Multiple scattered embolic strokes, pontine ischemia Probable hypertensive microhemorrhages versus a myeloid angiopathy Dementia -MRI Brain 01/17/18: Multiple embolic lacunar infarct involving frontal lobes, right basal ganglia and left temporal occipital lobe. Severe diffuse periventricular and subcortical white matter small vessel ischemic changes. Pontine ischemic changes noted. Probable amyloid angiopathy or hypertensive microhemorrhages, scattered old lacunar infarcts. -Neurology consulted Dr. Hurt -Continue aspirin daily, unable to anticoagulate due to anemia requiring transfusion. Continue heparin 5000 units subcu every 12 -Encephalopathy most likely secondary to multiple embolic strokes, sepsis -CT of the head negative 01/13, EEG no seizures -Not on any sedation -Carotid Doppler no significant stenosis RESP: Acute hypoxemic respiratory failure HCAP/ESBL E Coli -Emergently intubated and placed on mechanical ventilation 01/14 -Daily spontaneous breathing trials but mental status will not permit extubation -DuoNeb every 6 hours scheduled and as needed -See ID for ABX CV: Nonsustained ventricular tachycardia Hypertension -Continue bicarb infusion, 75 mL/h -Metoprolol IV as needed for PVCs/nonsustained V. tach -Serial cardiac enzymes. Prev Echo 2016, preserved LV ejection fraction, moderate LVH -Continue carvedilol continue hydralazine, nicardipine GI: -Continue tube feeds with Nepro -IV famotidine for GI prophylaxis : Acute on chronic kidney disease -Monitor renal function closely. French catheter. Nephrology following Dr. Sanchez -BUN/creatinine worsening. Patient is a poor candidate for hemodialysis I have discussed this with family. -Continue bicarb infusion ID: Severe sepsis Healthcare associated pneumonia /ESBL E. coli -Continue ertapenem renally dosed -ESBL isolation HEME: Anemia requiring transfusion -Monitor CBC, CMP, coags -s/p 2U PRBC MSK: Right hip fracture status post hemiarthroplasty -Post op management per Ortho. PT when appropriate ENDO: -Watch closely for hyperkalemia -Careful electrolyte replacement PROPH: -Bilateral lower extremity SCDs. Sq Heparin 5000 sq q12. IV famotidine 20 mg every 12 LINES: -Utilize peripheral IVs, central line if needed Level 3 Code Status: Full
[2018-01-19 13:13] LABS: Burr Cells 1+; Eosinophils 2 % (0-4); Lymphocytes 7 % (9-44); Metamyelocytes 3 % (0-1); Monocytes 7 % (0-8); Platelet Estimate Normal (Normal); Platelet Morphology Normal (Normal)
--- NOTE | 2018-01-19 13:52 | P.PNNP ---
Subjective Interval history: Remains intubated. <Emani Avery - Last Filed: 01/19/18 13:48> Physical Exam Vital signs: Vital Signs 01/19/18 04:00 01/19/18 05:21 01/19/18 08:00 Temperature 97.9 F 97.9 F Pulse Rate 68 66 61 Respiratory Rate 15 14 14 Blood Pressure 146/82 H 133/71 Pulse Oximetry 97 97 100 01/19/18 10:53 01/19/18 12:00 Temperature 97.9 F Pulse Rate 60 Respiratory Rate 14 14 Blood Pressure 146/80 H Pulse Oximetry 100 99 Intake & Output 01/18/18 01/19/18 01/19/18 18:59 06:59 18:59 Intake Total 745 / 745 Output Total 500 / 500 Balance 245 / 245 Weight 80.4 kg Intake: Tube Feeding 595 / 595 Tube Irrigant 150 / 150 Output: Urine 500 / 500 Other: Date of Last Bowel Movement 01/18/18 01/18/18 # Bowel Movements 1 - Constitutional no acute distress - Routine HEENT Exam Head: Present: normocephalic - Routine Neck Exam Absent: JVD - Routine Respiratory Exam Present: patient mechanically ventilated, decreased breath sounds - Routine Cardiovascular Exam Present: RRR - Routine Abdominal Exam Present: soft, normoactive bowel sounds - Routine Skin Exam Present: warm - Detailed Neurological Exam: Coma Scale Eye Opening: None - Urinary Catheter Management Indwelling Urethral Catheter Cath placed during this visit: yes Urethral indwelling: Yes Reason for continuing: Hourly intake/output Insertion date: 01/10/18 Insertion time: 12:17 <Emani Avery - Last Filed: 01/19/18 13:48> Vital signs: Vital Signs 01/19/18 04:00 01/19/18 05:21 01/19/18 08:00 Temperature 97.9 F 97.9 F Pulse Rate 68 66 61 Respiratory Rate 15 14 14 Blood Pressure 146/82 H 133/71 Pulse Oximetry 97 97 100 01/19/18 10:53 01/19/18 12:00 01/19/18 15:51 Temperature 97.9 F Pulse Rate 60 61 Respiratory Rate 14 14 14 Blood Pressure 146/80 H Pulse Oximetry 100 99 99 Intake & Output 01/18/18 01/19/18 01/19/18 18:59 06:59 18:59 Intake Total 745 / 745 Output Total 500 / 500 Balance 245 / 245 Weight 80.4 kg Intake: Tube Feeding 595 / 595 Tube Irrigant 150 / 150 Output: Urine 500 / 500 Other: Date of Last Bowel Movement 01/18/18 01/18/18 # Bowel Movements 1 - Urinary Catheter Management Indwelling Urethral Catheter Cath placed during this visit: no <Norberto Sanchez - Last Filed: 01/19/18 16:47> Assessment and Plan - Assessment (1) Acute kidney injury Code(s): N17.9 - Acute kidney failure, unspecified Status: Acute Plan: Patient has progressive decline on the kidney ultrasound showed echogenic kidney. Creatinine at 5.74 ->5.70 -> 5.4->5.6->5.6 yesterday Patient is a poor candidate for hemodialysis Palliative care meet with family continue aggressive treatment currently Patient has no urgent need for Dialysis. Avoid nephrotoxins Will continue to monitor urinary output and BMP. Labs in AM <Emani Avery - Last Filed: 01/19/18 13:48> - Assessment (1) Acute kidney injury Code(s): N17.9 - Acute kidney failure, unspecified Status: Acute Plan: Patient seen and examined, agree with above. No new BMP today, will follow the urine out put and BMP. <Norberto Sanchez - Last Filed: 01/19/18 16:47>
[2018-01-19 17:47] LABS: Albumin 0.4 g/dL (3.4-5.0); Anion Gap 11 meq/L (5-15); Aspartate Aminotransferase 14 U/L (15-37); Blood Urea Nitrogen 109 mg/dL (7-18); Calcium 6.2 mg/dL (8.5-10.1); Carbon Dioxide 27.3 meq/L (21.0-32.0); Chloride 103 meq/L (98-107); Glomerular Filtration Rate 9 mL/min (>89); Glucose,Random 148 mg/dL (74-106); Potassium 4.5 meq/L (3.5-5.1); Sodium 141 meq/L (136-145); Total Protein 1.4 g/dL (6.4-8.2)
[2018-01-20] MEDS: Oral Hygiene Kit OROPHARYNG SCH ×3 (04:19→15:48)
[2018-01-20 05:04] LABS: Hematocrit 22.6 % (35.0-46.0); Hemoglobin 7.6 gm/dL (11.6-15.3); Mean Corpuscular HGB Conc 33.6 % (32.0-36.0); Mean Corpuscular Volume 86.1 fL (80.0-100.0); Mean Platelet Volume 9.2 fL (7.0-11.0); Platelet Count 126 th/mm3 (150-450); Red Blood Count 2.62 mil/mm3 (4.00-5.30); Red Cell Distribution Width 15.6 % (11.6-17.2); White Blood Count 9.1 th/mm3 (4.0-11.0)
[2018-01-20] MEDS: NIFEdipine 10 MG Capsule NG/OG SCH ×3 (05:10→21:07)
[2018-01-20] MEDS: Famotidine PF Inj 20 MG/2 ML Vial IV.PUSH SCH ×2 (05:10→19:03)
[2018-01-20 05:21] LABS: Albumin 1.6 g/dL (3.4-5.0); Anion Gap 12 meq/L (5-15); Aspartate Aminotransferase 52 U/L (15-37); Blood Urea Nitrogen 106 mg/dL (7-18); Carbon Dioxide 26.2 meq/L (21.0-32.0); Chloride 98 meq/L (98-107); Glomerular Filtration Rate 9 mL/min (>89); Glucose,Random 122 mg/dL (74-106); Potassium 4.3 meq/L (3.5-5.1); Sodium 136 meq/L (136-145)
[2018-01-20 05:24] LABS: Alkaline Phosphatase 67 U/L (45-117); Total Protein 5.9 g/dL (6.4-8.2)
[2018-01-20] MEDS: Ferrrous Sulfate 300 MG/5 ML UDC NG/OG SCH ×2 (10:52→20:40)
[2018-01-20] MEDS: Heparin - SQ 10,000 UNITS/ML Vial SQ SCH ×2 (10:53→20:41)
[2018-01-20] MEDS: Chlorhexidine 0.12% Oral Kit 15 ML UDC SWISH-SPIT SCH ×2 (10:55→20:40)
[2018-01-20] MEDS: Carvedilol 6.25 MG Tablet NG/OG SCH ×2 (10:56→20:40)
[2018-01-20] MEDS: Sodium Bicarbonate 650 MG Tablet NG/OG SCH (10:57)
[2018-01-20] MEDS: ERTAPENEM IV.SIG SCH (11:39)
[2018-01-20] MEDS: SODIUM CHLOR 0.9% IV.SIG SCH (11:39)
--- NOTE | 2018-01-20 12:21 | P.PNNP ---
Subjective Interval history: Remains intubated. Creatinine at 5.35 today with urinary output of 750 ml/24 hours <Emani Avery - Last Filed: 01/20/18 12:16> Physical Exam Vital signs: Vital Signs 01/19/18 15:51 01/19/18 16:00 01/19/18 20:00 Temperature 97.7 F Pulse Rate 61 61 75 Respiratory Rate 14 14 14 Blood Pressure 130/85 152/77 H Pulse Oximetry 99 98 100 01/19/18 21:42 01/20/18 00:56 01/20/18 04:00 Temperature 97.9 F Pulse Rate 72 66 Respiratory Rate 15 14 14 Blood Pressure 143/72 H Pulse Oximetry 99 100 100 01/20/18 04:59 01/20/18 08:50 01/20/18 08:54 Temperature Pulse Rate 73 64 Respiratory Rate 14 14 14 Blood Pressure Pulse Oximetry 99 100 Intake & Output 01/19/18 01/20/18 01/20/18 18:59 06:59 18:59 Intake Total 749 / 749 914 / 914 Output Total 400 / 400 350 / 350 Balance 349 / 349 564 / 564 Weight 81.6 kg Intake: IV 50 / 50 INVanz Inj 500 MG In NS Inj 50 50 / 50 ML @ 100 mls/hr IV.SIG Q24H [facility] Rx#:[id number] Tube Feeding 499 / 499 514 / 514 Tube Irrigant 200 / 200 400 / 400 Output: Urine Amount (Catheter) 400 / 400 350 / 350 Indwelling Urethral Catheter 400 / 400 350 / 350 Other: Date of Last Bowel Movement 01/19/18 01/20/18 01/20/18 # Bowel Movements 2 1 - Urinary Catheter Management Indwelling Urethral Catheter Cath placed during this visit: yes Urethral indwelling: Yes Reason for continuing: Acute urinary retention Insertion date: 01/10/18 Insertion time: 12:17 <Emani Avery - Last Filed: 01/20/18 12:16> Vital signs: Vital Signs 01/20/18 00:56 01/20/18 04:00 01/20/18 04:59 Temperature 97.9 F Pulse Rate 66 73 Respiratory Rate 14 14 14 Blood Pressure 143/72 H Pulse Oximetry 100 100 99 01/20/18 08:00 01/20/18 08:50 01/20/18 08:54 Temperature 98.2 F Pulse Rate 68 64 Respiratory Rate 14 14 14 Blood Pressure 131/84 Pulse Oximetry 100 100 01/20/18 12:00 01/20/18 13:06 01/20/18 16:00 Temperature 97.8 F 97.9 F Pulse Rate 66 75 Respiratory Rate 16 14 16 Blood Pressure 137/66 104/75 Pulse Oximetry 100 96 01/20/18 16:38 01/20/18 16:39 01/20/18 20:00 Temperature 98.2 F Pulse Rate 65 76 Respiratory Rate 14 14 14 Blood Pressure 132/77 Pulse Oximetry 100 01/20/18 21:26 01/20/18 21:31 Temperature Pulse Rate 74 Respiratory Rate 14 14 Blood Pressure Pulse Oximetry 94 L Intake & Output 01/20/18 01/20/18 01/21/18 06:59 18:59 06:59 Intake Total 914 / 914 759 / 759 Output Total 350 / 350 500 / 500 Balance 564 / 564 259 / 259 Weight 81.6 kg Intake: Tube Feeding 514 / 514 639 / 639 Tube Irrigant 400 / 400 120 / 120 Output: Urine 500 / 500 Urine Amount (Catheter) 350 / 350 Indwelling Urethral Catheter 350 / 350 Other: Date of Last Bowel Movement 01/20/18 01/20/18 01/20/18 # Bowel Movements 1 2 - Urinary Catheter Management Indwelling Urethral Catheter Cath placed during this visit: no <Norberto Sanchez - Last Filed: 01/20/18 22:24> Assessment and Plan - Assessment (1) Acute kidney injury Code(s): N17.9 - Acute kidney failure, unspecified Status: Acute Plan: atient has progressive decline on the kidney ultrasound showed echogenic kidney. Creatinine at 5.74 ->5.70 -> 5.4->5.6->5.6 ->5.3 Urinary output 750ml/24 hour Patient is a poor candidate for hemodialysis Palliative care meet with family continue aggressive treatment currently Patient has no urgent need for Dialysis. Avoid nephrotoxins Acidosis has resolved will discontinue sodium bicarbonate Will continue to monitor urinary output and BMP. <Emani Avery - Last Filed: 01/20/18 12:16> - Assessment (1) Acute kidney injury Code(s): N17.9 - Acute kidney failure, unspecified Status: Acute - Attending Attestation Patient seen and examined, agree with above. Creatinine almost same. No urgent need for HD, will monitor closely. <Norberto Sanchez - Last Filed: 01/20/18 22:24>
--- NOTE | 2018-01-20 13:06 | P.PNCC ---
Subjective Subjective Remarks/Hospital Course: Patient is a 72-year-old female with history of chronic kidney disease, dementia , hepatitis C, hypertension, monoclonal gammopathy who was admitted to the hospitalist service after she sustained right femoral neck fracture from a fall , she underwent right hip hemiarthroplasty 01/10/18. Patient has stage IV kidney disease and was admitted with BUN 78 creatinine of 4. Patient had been declining since admission was lethargic since yesterday. A CT of the head was negative. Became more unresponsive and unarousable since today afternoon. BUN/ creatinine today 104/5.74. Due to worsening mental status she was brought to the ICU and critical care medicine was consulted. Palliative care was consulted due to advanced dementia is worsening chronic kidney disease and encephalopathy but family wants aggressive care. I evaluated the patient in the ICU, patient is completely unresponsive, not waking up to painful stimuli. Gurgling breath sounds not protecting airway. Emergently intubated and placed on mechanical ventilation. Suctioned out large amount of moderate white to yellow thick secretions from the glottic opening. Patient probably has pneumonia based on secretions and bilateral alveolar infiltrates on chest x- ray. Worsening mental status most likely secondary to metabolic encephalopathy , antibiotics broadened to Zosyn and vancomycin. SUBJ 01/15: Remains intubated critically ill. BUN/creatinine remains elevated at 109/5.7. Chest x-ray shows persistent bilateral left more than right infiltrates. Patient remains encephalopathy go for sedation. Multiple nonsustained episodes of ventricular tachycardia. Had extensive discussion with daughter at the bedside and son over the phone. I encouraged him to consider DNR status given patient's dementia, worsening renal failure, cardiac dysrhythmias and sepsis now 01/16: Patient remains intubated off sedation for 24 hours. Remains unresponsive very slight withdrawal to pain. Sputum culture growing GNR. BUN creatinine slightly improved 97/5.43. Urine output approximately 800 mL in 24 hours. Hb 6.8, 1U PRBC ordered. Updated son at bedside 01/17: Remains severely encephalopathic. MRI brain yesterday shows multiple embolic lacunar infarct involving frontal lobes, right basal ganglia and left temporal occipital lobe. Severe diffuse periventricular and subcortical white matter small vessel ischemic changes are again noted. Pontine ischemic changes are also noted. Also diffuse probable amyloid angiopathy or hypertensive microhemorrhages, scattered old lacunar infarcts. Neurology had been consulted. Sputum culture growing ESBL E. coli Zosyn DC'd and ertapenem started 630: Remains severely encephalopathy. Continues to have no spontaneous eye opening. Renal function worsening. BUN/cr 111/5.7. Urine output 1 L in 24 hours 01/19: Remains intubated off all sedation no improvement in neuro status intermittently moves extremities spontaneously. Did not follow commands. Diminishing urine output 500 mL in 24 hours 01/20: No change in clinical condition remains unresponsive very weak withdrawal to pain. Urine output 750 mL in 24 hours, no acute indication for hemodialysis. Objective Vital Signs / I&O: Vital Signs 01/19/18 15:51 01/19/18 16:00 01/19/18 20:00 Temperature 97.7 F Pulse Rate 61 61 75 Respiratory Rate 14 14 14 Blood Pressure 130/85 152/77 H Pulse Oximetry 99 98 100 01/19/18 21:42 01/20/18 00:56 01/20/18 04:00 Temperature 97.9 F Pulse Rate 72 66 Respiratory Rate 15 14 14 Blood Pressure 143/72 H Pulse Oximetry 99 100 100 01/20/18 04:59 01/20/18 08:00 01/20/18 08:50 Temperature 98.2 F Pulse Rate 73 68 Respiratory Rate 14 14 14 Blood Pressure 131/84 Pulse Oximetry 99 100 100 01/20/18 08:54 Temperature Pulse Rate 64 Respiratory Rate 14 Blood Pressure Pulse Oximetry Intake & Output 01/19/18 01/20/18 01/20/18 18:59 06:59 18:59 Intake Total 749 / 749 914 / 914 Output Total 400 / 400 350 / 350 Balance 349 / 349 564 / 564 Weight 81.6 kg Intake: IV 50 / 50 INVanz Inj 500 MG In NS Inj 50 50 / 50 ML @ 100 mls/hr IV.SIG Q24H [facility] Rx#:[id number] Tube Feeding 499 / 499 514 / 514 Tube Irrigant 200 / 200 400 / 400 Output: Urine Amount (Catheter) 400 / 400 350 / 350 Indwelling Urethral Catheter 400 / 400 350 / 350 Other: Date of Last Bowel Movement 01/19/18 01/20/18 01/20/18 # Bowel Movements 2 1 Result Diagrams: 01/20/18 04:33 01/20/18 04:33 Objective Remarks: GENERAL: -[place] female lying in bed, off all sedation, remains encephalopathic SKIN: No rashes, ecchymoses or lesions. HEAD: Atraumatic. Normocephalic. EYES: Pupils equal round. No spontaneous eye opening ENT: Nose without bleeding, Edentulous. Orotracheally intubated NECK: Trachea midline. No JVD or lymphadenopathy. CARDIOVASCULAR: S1 S2 normal rhythm without murmurs, gallops, or rubs. RESPIRATORY: Diminished breath sounds with coarse rhonchi bilaterally. GASTROINTESTINAL: Abdomen soft, nondistended. Nontender MUSCULOSKELETAL:Bilateral lower extremities neurovascularly intact. NEUROLOGICAL: Patient remains unresponsive off sedation. Slight withdrawal of extremities noted with painful stimuli, no eye opening. Assessment and Plan - Assessment and Plan Plan: A/P Assessment and Plan ASSESSMENT/PLAN: NEURO: Acute metabolic encephalopathy Multiple scattered embolic strokes, pontine ischemia Probable hypertensive microhemorrhages versus a myeloid angiopathy Dementia -MRI Brain 01/17/18: Multiple embolic lacunar infarct involving frontal lobes, right basal ganglia and left temporal occipital lobe. Severe diffuse periventricular and subcortical white matter small vessel ischemic changes. Pontine ischemic changes noted. Probable amyloid angiopathy or hypertensive microhemorrhages, scattered old lacunar infarcts. -Neurology Dr. Hurt -Continue aspirin daily, unable to anticoagulate due to anemia requiring transfusion. Continue heparin 5000 units subcu every 12 -Encephalopathy most likely secondary to multiple embolic strokes, sepsis -CT of the head negative 01/13, EEG no seizures -Not on any sedation -Carotid Doppler no significant stenosis RESP: Acute hypoxemic respiratory failure HCAP/ESBL E Coli -Emergently intubated and placed on mechanical ventilation 01/14. VENT DAY 7 -Daily spontaneous breathing trials but mental status will not permit extubation -DuoNeb every 6 hours scheduled and as needed -See ID for ABX -Palliative care to discuss with family regarding tracheostomy and PEG tube if they want to continue aggressive care CV: Nonsustained ventricular tachycardia Hypertension -Continue PO bicarb infusion -Metoprolol IV as needed for PVCs/nonsustained V. tach -Serial cardiac enzymes. Prev Echo 2016, preserved LV ejection fraction, moderate LVH -Continue carvedilol continue hydralazine, nicardipine GI: -Continue tube feeds with Nepro -IV famotidine for GI prophylaxis : Acute on chronic kidney disease -Monitor renal function closely. French catheter. Nephrology following Dr. Sanchez -BUN/creatinine worsening. Patient is a poor candidate for hemodialysis I have discussed this with family. ID: Severe sepsis Healthcare associated pneumonia /ESBL E. coli -Continue ertapenem renally dosed -ESBL isolation HEME: Anemia requiring transfusion -Monitor CBC, CMP, coags -s/p 2U PRBC MSK: Right hip fracture status post hemiarthroplasty -Post op management per Ortho. PT when appropriate ENDO: -Watch closely for hyperkalemia -Careful electrolyte replacement PROPH: -Bilateral lower extremity SCDs. Sq Heparin 5000 sq q12. IV famotidine 20 mg every 12 LINES: -Utilize peripheral IVs, central line if needed Level 2
[2018-01-21] MEDS: Oral Hygiene Kit OROPHARYNG SCH ×5 (02:35→23:39)
--- NOTE | 2018-01-21 04:38 | XR ---
EXAM DATE: 01/21/2018 3:54 AM EDT AGE/SEX: 72 years / Female INDICATIONS: Respiratory Disease CLINICAL DATA: This is the patient's subsequent encounter. Patient reports that signs and symptoms h ave been present for 2 weeks and indicates a pain score of Nonresponsive. MEDICAL/SURGICAL HISTORY: Non-responsive. Non-responsive. COMPARISON: [facility] [place], CHEST SINGLE AP, 01/18/2018. . FINDINGS: ET tube tip well above the perri. Gastric tube traverses the [id number]. There is persistent cons olidation in the left lower lung with loss of delineation of the entire left hemidiaphragm. The heart is enlarged, stable from prior. Improved aeration of the right lung without definite infiltrates. Tu khushi projects over the lower right chest. CONCLUSION: Persistent lobar consolidation left lower lung. Electronically signed by: Fito Robertson MD 01/21/2018 4:37 AM EDT
[2018-01-21] MEDS: Famotidine PF Inj 20 MG/2 ML Vial IV.PUSH SCH ×2 (05:57→18:36)
[2018-01-21] MEDS: NIFEdipine 10 MG Capsule NG/OG SCH ×3 (05:57→21:25)
[2018-01-21 06:33] LABS: Albumin 1.6 g/dL (3.4-5.0); Anion Gap 15 meq/L (5-15); Aspartate Aminotransferase 48 U/L (15-37); Blood Urea Nitrogen 115 mg/dL (7-18); Calcium 8.2 mg/dL (8.5-10.1); Carbon Dioxide 22.5 meq/L (21.0-32.0); Chloride 97 meq/L (98-107); Glomerular Filtration Rate 10 mL/min (>89); Glucose,Random 106 mg/dL (74-106); Potassium 4.3 meq/L (3.5-5.1); Sodium 134 meq/L (136-145)
[2018-01-21 06:34] LABS: Alanine Aminotransferase 6 U/L (10-53)
[2018-01-21 06:37] LABS: Alkaline Phosphatase 79 U/L (45-117); Total Protein 5.9 g/dL (6.4-8.2)
--- NOTE | 2018-01-21 08:14 | P.PNNEU ---
Subjective Subjective Comments: No acute events reported No headache No chest pain No dyspnea Active Medications: Active Medications Generic Name Dose Route Start Last Admin Trade Name Freq PRN Reason Stop Dose Admin Acetaminophen 650 mg 01/19/18 00:01 Tylenol PO Q4H PRN PAIN, VALDEZ, TEMP>100.6 Albuterol 1 ampul 01/19/18 00:00 Duoneb Neb (Prn) NEB Q2HR NEB PRN SHORTNESS OF BREATH Albuterol 1 ampul 01/19/18 04:00 01/21/18 04:33 Duoneb Neb (Lenora) NEB 1 ampul Q6HR NEB LENORA Administration Aspirin 81 mg 01/19/18 09:00 01/20/18 10:53 Aspirin Chew CHEW 81 mg DAILY LENORA Administration Carvedilol 6.25 mg 01/19/18 09:00 01/20/18 20:40 Coreg NG/OG 6.25 mg Q12HR LENORA Administration Chlorhexidine Gluconate 15 ml 01/19/18 08:00 01/20/18 20:40 Peridex 0.12% Oral Kit SWISH-SPIT 15 ml BID@0800,2000 LENORA Administration Clonidine HCl 0.1 mg 01/19/18 00:01 Catapres NG/OG Q6H PRN SBP>160, DBP>90 Famotidine 10 mg 01/19/18 06:00 01/21/18 05:57 Pepcid Pf Inj IV.PUSH 10 mg Q12H LENORA Administration Ferrous Sulfate 300 mg 01/19/18 09:00 01/20/18 20:40 Ferrrous Sulfate Liq NG/OG 300 mg BID LENORA Administration Heparin Sodium (Porcine) 5,000 units 01/19/18 09:00 01/20/18 20:41 Heparin Inj SQ 5,000 units Q12HR LENORA Administration Hydralazine HCl 100 mg 01/19/18 04:00 01/21/18 04:08 Apresoline NG/OG 100 mg Q8H LENORA Administration Ertapenem 500 mg/ Sodium 50 mls @ 100 mls/hr 01/19/18 10:00 01/20/18 11:39 Chloride IV.SIG 100 mls/hr Q24H LENORA Administration Naloxone HCl 0.4 mg 01/19/18 00:01 Narcan Inj IV.PUSH UNSCH PRN SEE COMMENTS Nifedipine 30 mg 01/19/18 06:00 01/21/18 05:57 Procardia NG/OG 30 mg Q8HR LENORA Administration Sodium Chloride 2 ml 01/19/18 00:01 Ns Inj IV.FLUSH UNSCH PRN FLUSH AFTER USING IV ACCESS Sodium Chloride 2 ml 01/19/18 09:00 01/20/18 20:41 Ns Flush IV.FLUSH 2 ml BID LENORA Administration Vitamin D 5,000 unit 01/19/18 06:00 01/20/18 10:54 Vitamin D3 NG/OG 5,000 unit DAILY LENORA Administration Allergies/Adverse Reactions: Allergies Allergy/AdvReac Type Severity Reaction Status Date / Time No Known Allergies Allergy Unknown Uncoded 01/10/18 02:26 Physical Exam Vital signs: Vital Signs 01/20/18 08:50 01/20/18 08:54 01/20/18 12:00 Temperature 97.8 F Pulse Rate 64 66 Respiratory Rate 14 14 16 Blood Pressure 137/66 Pulse Oximetry 100 100 01/20/18 13:06 01/20/18 16:00 01/20/18 16:38 Temperature 97.9 F Pulse Rate 75 Respiratory Rate 14 16 14 Blood Pressure 104/75 Pulse Oximetry 96 100 01/20/18 16:39 01/20/18 20:00 01/20/18 21:26 Temperature 98.2 F Pulse Rate 65 76 Respiratory Rate 14 14 14 Blood Pressure 132/77 Pulse Oximetry 94 L 01/20/18 21:31 01/21/18 00:00 01/21/18 00:05 Temperature 98 F Pulse Rate 74 65 Respiratory Rate 14 14 14 Blood Pressure 117/62 Pulse Oximetry 98 01/21/18 04:00 01/21/18 04:28 01/21/18 08:02 Temperature 97.8 F Pulse Rate 77 Respiratory Rate 14 14 14 Blood Pressure 134/71 Pulse Oximetry 95 92 L Intake & Output 01/20/18 01/21/18 01/21/18 18:59 06:59 18:59 Intake Total 759 / 759 886 / 886 Output Total 500 / 500 450 / 450 Balance 259 / 259 436 / 436 Weight 80.9 kg Intake: Tube Feeding 639 / 639 486 / 486 Tube Irrigant 120 / 120 400 / 400 Output: Urine 500 / 500 450 / 450 Other: Date of Last Bowel Movement 01/20/18 01/21/18 # Bowel Movements 2 1 Narrative: comatose no rxt threat will not follow commands stirs to pinch - Urinary Catheter Management Indwelling Urethral Catheter Cath placed during this visit: yes Urethral indwelling: Yes Reason for continuing: Acute urinary retention Insertion date: 01/10/18 Insertion time: 12:17 Objective Laboratory Results - last 24 hr 01/21/18 05:22 Sodium 134 L Potassium 4.3 Chloride 97 L Carbon Dioxide 22.5 Anion Gap 15 BUN 115 H Creatinine 5.33 H Estimated GFR 10 L Random Glucose 106 Calcium 8.2 L Total Bilirubin 0.2 AST 48 H ALT 6 L Alkaline Phosphatase 79 Total Protein 5.9 L Albumin 1.6 L Review/Management - Review/Management Plan: imp px poor due to age mult cva dementia not improving neurowise echo The left ventricular systolic function is normal with an estimated ejection fraction in the range of 55-60%. Mild concentric left ventricular hypertrophy. Trace mitral valve regurgitation. Trace aortic valve regurgitation. There is mild tricuspid valve regurgitation. A left sided pleural effusion is present. i would support comfort measures on her 01/21/18 no change as above i dw daughter
[2018-01-21] MEDS: Carvedilol 6.25 MG Tablet NG/OG SCH ×2 (08:20→20:12)
[2018-01-21] MEDS: Heparin - SQ 10,000 UNITS/ML Vial SQ SCH ×2 (08:20→20:16)
[2018-01-21] MEDS: Ferrrous Sulfate 300 MG/5 ML UDC NG/OG SCH ×2 (08:20→20:15)
[2018-01-21] MEDS: Chlorhexidine 0.12% Oral Kit 15 ML UDC SWISH-SPIT SCH ×2 (08:24→20:15)
[2018-01-21] MEDS: ERTAPENEM IV.SIG SCH (10:59)
[2018-01-21] MEDS: SODIUM CHLOR 0.9% IV.SIG SCH (10:59)
--- NOTE | 2018-01-21 11:32 | P.PNPAL ---
Reason for Visit Reason for visit: a. To assist with evaluation and management of symptoms including: Shortness of breath, pain, debility b. To assist medical decision maker(s) with: better understanding of current medical conditions; weighing benefits/burdens of medical treatment options; making medical treatment decisions. Subjective Subjective/Interval History: Patient seen and examined in her room on [facility]. Patient remains intubated on mechanical ventilation and obtunded. Patient is not on sedation. Eyes closed, minimal response with lower extremities to noxious stimulation. Patient is on FIO2 40% with O2 saturation in the low to mid 90s. Tube feeds Nepro infusing through NG-tube at goal. Interim Course: * Renal function not improving- Patient is a poor candidate for hemodialysis. * Neurology following- noted that patient has a poor prognosis due to age and multiple areas on MRI showing CVA and dementia. Neurology is supportive of comfort measures for patient. * Echocardiogram revealed estimated EF range of 55-60%, mild concentric left ventricular hypertrophy, trace mitral and aortic valve regurgitation. Mild tricuspid valve regurgitation and a left-sided pleural effusion. Laboratory workup today revealing sodium 134, potassium 4.3, BUN/creatinine 1 1 5/5.33, AST 48, ALT 6, total protein 5.9, albumin 1.6. Attempted to call patient`s son Jabari Noel [phone] again to check if he wants to serve as a health care proxy for patient with no success- "wireless customer is not available". Telephone call to patient`s daughter Carmen Noel [phone], who acknowledges that she has been receiving medical updates from the medical team ([facility], Neurology). Readdressed code status as had been discussed during previous meeting with palliative care, patient`s daughter mentioned that after discussing with family they have decided to keep patient as a full code. Briefly discussed need for a tracheostomy and PEG tube placement in the near future since patient appears not to have any improvement in her neurological status. Patient`s daughter mentioned that she is still talking to her siblings, initially some of them had been against proceeding with tracheostomy placement and now seem to have changed their minds. At this point Carmen does not have a definitive answer whether family want to progress with tracheostomy and PEG placement or not. Offered to have a meeting with majority of patient`s children to help them understand patient current ongoing comorbidities. Carmen will try to have her siblings come in to discuss further goals of care and what to anticipate in the near future regarding treatment plan if goals remain aggressive. Palliative contact information provided. Conference meeting for more than an hour and half with patients` children, oldest child Carmen Vila and Pipe Noel on [facility].Discussed patient`s current and ongoing multiple comorbidities and complications she is faced with. Discussed patient`s significant decline prior to this hospitalization which most likely was progression of dementia. Patient`s son Isiah was not aware of patient`s deterioration prior to hospitalization. Patient `s son mentioned that his mother would not like to live in a vegetative state and most likely would not want to be trached and pegged. Patient`s daughter Pipe Noel mentioned that prior to patient having dementia, she was not happy to see her last significant other trached and pegged and let alone living in a [facility]. She mentioned that her mother would not want to have a trach, PEG and would not like to live in a [facility]. Discussed acute on chronic kidney disease, MRI imaging results showing multiple embolic strokes in the setting of a patient with dementia, respiratory failure and most likely need for tracheostomy, PEG tube placement and most likely being a fpc care resident in a [facility]. Readdressed code status, discussed complications and limitations of CPR, Carmen Noel elected do not resuscitate, do not intubate with the support of her siblings. Asked Carmen that in case ETT accidentally comes out or patient self extubates would she want patient to be reintubated and she said, "no". Family would not like to proceed with tracheostomy and a PEG tube placement. Discussed compassionate withdrawal from life support and explained to family that they have an option to consider that if they chose not to pursue with aggressive treatment. Reintroduced hospice philosophy and benefits, Carmen would like to discuss further with her family before she makes a decision to proceed with compassionate withdrawal from life support. Case discussed with bedside RN and Dr. Cyr. Family/Friend Interactions: Telephone conversation with patient`s daughter Carmen. See interval note. Advance Directives Living Will: Never completed (Changed code status to DNR) Health Care Surrogate: Never completed Durable Power of Gm Mobile: Never completed Health Care Surrogate Name and Number: [facility]-Carmen Noel [phone] Objective Vital Signs: Vital Signs 01/20/18 12:00 01/20/18 13:06 01/20/18 16:00 Temperature 97.8 F 97.9 F Pulse Rate 66 75 Respiratory Rate 16 14 16 Blood Pressure 137/66 104/75 Pulse Oximetry 100 96 01/20/18 16:38 01/20/18 16:39 01/20/18 20:00 Temperature 98.2 F Pulse Rate 65 76 Respiratory Rate 14 14 14 Blood Pressure 132/77 Pulse Oximetry 100 01/20/18 21:26 01/20/18 21:31 01/21/18 00:00 Temperature 98 F Pulse Rate 74 65 Respiratory Rate 14 14 14 Blood Pressure 117/62 Pulse Oximetry 94 L 01/21/18 00:05 01/21/18 04:00 01/21/18 04:28 Temperature 97.8 F Pulse Rate 77 Respiratory Rate 14 14 14 Blood Pressure 134/71 Pulse Oximetry 98 95 01/21/18 08:02 01/21/18 08:56 Temperature Pulse Rate 69 Respiratory Rate 14 14 Blood Pressure Pulse Oximetry 92 L Intake & Output 01/20/18 01/21/18 01/21/18 18:59 06:59 18:59 Intake Total 759 / 759 886 / 886 Output Total 500 / 500 450 / 450 Balance 259 / 259 436 / 436 Weight 80.9 kg Intake: Tube Feeding 639 / 639 486 / 486 Tube Irrigant 120 / 120 400 / 400 Output: Urine 500 / 500 450 / 450 Other: Date of Last Bowel Movement 01/20/18 01/21/18 # Bowel Movements 2 1 Physical Exam: Physical Exam CONSTITUTIONAL/GENERAL: This is an elderly patient, remains intubated and unresponsive TUBES/LINES/DRAINS:NC, PIV, FC, NGT, ETT, bilateral soft restraints SKIN: No jaundice, rashes, or lesions. Ecchymoses on upper extremities. Healing surgical incision to right lateral hip. HEAD: Atraumatic. Normocephalic. EYES: PERRLA. No scleral icterus. Fundi not examined. ENT: Nose without bleeding or purulent drainage.NGT with TF Nepro infusing at goal rate NECK: Trachea midline. Supple, nontender. CARDIOVASCULAR: S1, S2 normal, gallops, or rubs. No JVD. Peripheral pulses symmetric. RESPIRATORY/CHEST: Symmetric, unlabored respirations. Rhonchi to auscultation, No wheezes. GASTROINTESTINAL: Abdomen soft, non-tender, nondistended. NGT. No guarding. Bowel sounds present. GENITOURINARY: Without palpable bladder distension. French catheter in place. MUSCULOSKELETAL: Extremities without clubbing, cyanosis. No mottling or clubbing. Edematous to all 4 extremities NEUROLOGICAL: intubated with no sedation, no eye opening , slight withdrawal to noxious stimulation with BLE PSYCHIATRIC: Unable to assess. Diagnostic Tests Laboratory: Laboratory Results - last 72 hr 01/15/18 01/16/18 01/16/18 16:55 06:06 06:06 WBC 5.7 RBC 2.40 L Hgb 6.8 L* Hct 20.3 L* MCV 84.6 MCH 28.1 MCHC 33.3 RDW 16.6 Plt Count 180 MPV 9.0 Prelim Diff (Auto) Neut % (Auto) 69.3 Lymph % (Auto) 15.6 [place] % (Auto) 12.4 H Eos % (Auto) 2.1 Baso % (Auto) 0.6 Neut # (Auto) 4.0 Lymph # (Auto) 0.9 L [place] # (Auto) 0.7 Eos # (Auto) 0.1 Baso # (Auto) 0.0 CBC Comment AUTO DIFF WBC Differential Total Counted Neutrophils % (Manual) Seg Neuts % (Manual) Band Neutrophils % Band Neuts % (Manual) Lymphocytes % Lymphocytes % (Manual) Monocytes % Monocytes % (Manual) Eosinophils % Eosinophils % (Manual) Basophils % Metamyelocytes % (Man) Neutrophils # (Manual) Abs Neuts (Manual) Metamyelocytes Myelocytes Nucleated RBCs Differential Comment AUTO DIFF CONFIRMED Platelet Estimate Platelet Morphology Plt Morphology Comment Ovalocytes 1+ H [place] Cells Acanthocytes (Spur) 1+ H Keratocytes OCC H PT INR APTT Sodium 143 Potassium 4.3 Chloride 112 H Carbon Dioxide 17.2 L Anion Gap 14 BUN 97 H D Creatinine 5.43 H Estimated GFR 9 L Random Glucose 156 H Calcium 7.5 L Prot Corrected Calcium Phosphorus Magnesium 1.6 Total Bilirubin 0.3 AST 16 ALT LESS THAN 6 L Alkaline Phosphatase 52 Troponin I 0.15 H Total Protein 5.6 L D Albumin 1.8 L D Random Vancomycin 20.8 01/16/18 01/16/18 01/17/18 15:32 19:42 04:17 WBC RBC Hgb 8.1 L Hct 24.5 L MCV MCH MCHC RDW Plt Count MPV Prelim Diff (Auto) Neut % (Auto) Lymph % (Auto) [place] % (Auto) Eos % (Auto) Baso % (Auto) Neut # (Auto) Lymph # (Auto) [place] # (Auto) Eos # (Auto) Baso # (Auto) CBC Comment WBC Differential Total Counted Neutrophils % (Manual) Seg Neuts % (Manual) Band Neutrophils % Band Neuts % (Manual) Lymphocytes % Lymphocytes % (Manual) Monocytes % Monocytes % (Manual) Eosinophils % Eosinophils % (Manual) Basophils % Metamyelocytes % (Man) Neutrophils # (Manual) Abs Neuts (Manual) Metamyelocytes Myelocytes Nucleated RBCs Differential Comment Platelet Estimate Platelet Morphology Plt Morphology Comment Ovalocytes [place] Cells Acanthocytes (Spur) Keratocytes PT 13.6 H INR 1.3 APTT 33.1 H Sodium Potassium Chloride Carbon Dioxide Anion Gap BUN Creatinine Estimated GFR Random Glucose Calcium Prot Corrected Calcium Phosphorus Magnesium Total Bilirubin AST ALT Alkaline Phosphatase Troponin I Total Protein Albumin Random Vancomycin 21.0 01/17/18 01/17/18 01/18/18 04:17 09:44 03:29 WBC 6.6 RBC 2.76 L Hgb 7.8 L Hct 23.4 L MCV 84.8 MCH 28.3 MCHC 33.4 RDW 16.1 Plt Count 209 MPV 9.0 Prelim Diff (Auto) Neut % (Auto) 66.4 Lymph % (Auto) 15.1 [place] % (Auto) 16.1 H Eos % (Auto) 2.0 Baso % (Auto) 0.4 Neut # (Auto) 4.4 Lymph # (Auto) 1.0 [place] # (Auto) 1.1 H Eos # (Auto) 0.1 Baso # (Auto) 0.0 CBC Comment AUTO DIFF WBC Differential Total Counted 100 Neutrophils % (Manual) 69 Seg Neuts % (Manual) Band Neutrophils % 2 Band Neuts % (Manual) Lymphocytes % 11 Lymphocytes % (Manual) Monocytes % 15 H Monocytes % (Manual) Eosinophils % 1 Eosinophils % (Manual) Basophils % Metamyelocytes % (Man) Neutrophils # (Manual) 4.8 Abs Neuts (Manual) Metamyelocytes 1 Myelocytes 1 H Nucleated RBCs Differential Comment FINAL DIFF MANUAL Platelet Estimate NORMAL Platelet Morphology Plt Morphology Comment NORMAL Ovalocytes [place] Cells 1+ H Acanthocytes (Spur) OCC H Keratocytes OCC H PT INR APTT Sodium 139 137 Potassium 4.2 4.2 Chloride 106 102 Carbon Dioxide 17.5 L 22.7 Anion Gap 16 H 12 BUN 105 H 111 H Creatinine 5.62 H 5.69 H Estimated GFR 9 L 9 L Random Glucose 146 H 161 H Calcium 7.6 L 7.8 L Prot Corrected Calcium Phosphorus 3.2 Magnesium Total Bilirubin 0.3 0.3 AST 17 57 H ALT 11 LESS THAN 6 L Alkaline Phosphatase 52 82 Troponin I Total Protein 5.8 L 6.2 L Albumin 1.8 L 1.8 L Random Vancomycin 01/18/18 01/19/18 01/19/18 03:29 11:27 16:20 WBC 9.7 10.9 RBC 3.11 L 3.20 L Hgb 8.9 L 9.1 L Hct 26.4 L 27.5 L MCV 85.1 86.0 MCH 28.6 28.3 MCHC 33.6 32.9 RDW 15.9 15.7 Plt Count 243 252 MPV 8.8 9.0 Prelim Diff (Auto) Slide review pending Neut % (Auto) 70.2 H 77.5 H Lymph % (Auto) 12.0 8.1 L [place] % (Auto) 15.7 H 12.0 H Eos % (Auto) 1.8 2.1 Baso % (Auto) 0.3 0.3 Neut # (Auto) 6.8 8.5 H Lymph # (Auto) 1.2 0.9 L [place] # (Auto) 1.5 H 1.3 H Eos # (Auto) 0.2 0.2 Baso # (Auto) 0.0 0.0 CBC Comment AUTO DIFF WBC Differential Manual diff final Total Counted 100 Neutrophils % (Manual) 72 H Seg Neuts % (Manual) 79 H Band Neutrophils % Band Neuts % (Manual) 2 Lymphocytes % 9 Lymphocytes % (Manual) 7 L Monocytes % 15 H Monocytes % (Manual) 7 Eosinophils % 2 Eosinophils % (Manual) 2 Basophils % 1 Metamyelocytes % (Man) 3 H Neutrophils # (Manual) 7.1 Abs Neuts (Manual) 9.2 H Metamyelocytes Myelocytes 1 H Nucleated RBCs 2 H Differential Comment FINAL DIFF MANUAL . Platelet Estimate NORMAL Normal Platelet Morphology Normal Plt Morphology Comment NORMAL Ovalocytes 1+ H [place] Cells 1+ H Acanthocytes (Spur) Keratocytes OCC H PT INR APTT Sodium 141 Potassium 4.5 Chloride 103 Carbon Dioxide 27.3 Anion Gap 11 BUN 109 H Creatinine 5.34 H Estimated GFR 9 L Random Glucose 148 H Calcium 6.2 L* Prot Corrected Calcium 9.7 Phosphorus Magnesium Total Bilirubin 1.5 H AST 14 L ALT Less than 6 L Alkaline Phosphatase Less than 10 L Troponin I Total Protein 1.4 L Albumin 0.4 L Random Vancomycin 01/20/18 01/20/18 01/21/18 04:33 04:33 05:22 WBC 9.1 RBC 2.62 L Hgb 7.6 L Hct 22.6 L MCV 86.1 MCH 29.0 MCHC 33.6 RDW 15.6 Plt Count 126 L D MPV 9.2 Prelim Diff (Auto) Neut % (Auto) Lymph % (Auto) [place] % (Auto) Eos % (Auto) Baso % (Auto) Neut # (Auto) Lymph # (Auto) [place] # (Auto) Eos # (Auto) Baso # (Auto) CBC Comment WBC Differential Total Counted Neutrophils % (Manual) Seg Neuts % (Manual) Band Neutrophils % Band Neuts % (Manual) Lymphocytes % Lymphocytes % (Manual) Monocytes % Monocytes % (Manual) Eosinophils % Eosinophils % (Manual) Basophils % Metamyelocytes % (Man) Neutrophils # (Manual) Abs Neuts (Manual) Metamyelocytes Myelocytes Nucleated RBCs Differential Comment Platelet Estimate Platelet Morphology Plt Morphology Comment Ovalocytes [place] Cells Acanthocytes (Spur) Keratocytes PT INR APTT Sodium 136 134 L Potassium 4.3 4.3 Chloride 98 97 L Carbon Dioxide 26.2 22.5 Anion Gap 12 15 BUN 106 H 115 H Creatinine 5.35 H 5.33 H Estimated GFR 9 L 10 L Random Glucose 122 H 106 Calcium 8.0 L D 8.2 L Prot Corrected Calcium Phosphorus Magnesium Total Bilirubin 0.2 0.2 AST 52 H 48 H ALT Less than 6 L 6 L Alkaline Phosphatase 67 79 Troponin I Total Protein 5.9 L D 5.9 L Albumin 1.6 L D 1.6 L Random Vancomycin Result Diagrams: 01/30/18 05:23 01/30/18 05:23 Imaging: Chest X-Ray 01/21/18 06:00 CONCLUSION: Persistent lobar consolidation left lower lung. Procedures: 01/10/2018-right hip bipolar hemiarthroplasty 01/14/18-Intubation Assessment and Plan Pertinent Non-Medical Issues: Psychosocial:Patient was raised in [place], [place]. 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 Patient worked 2 jobs at a time most of her life. Patient has been twice. Her first is and she is from her second . Patient has 9 living adult children. Spiritual:Patient is a Mandaen Legal:Patient never completed advance directives. She is . Ethical issues impacting care:None identified at this time. Important Contacts: Carmen Noel(daughter) [phone] Willing to serve as Health care proxy (Lives with patient) Kunal Pedro(son/eldest) [phone] in [place] Opted out-Currently in town supporting his sister Carmen Noel(son) [phone] -Unreachable-Multiple telephone call attempts TipShreyas Pedro(daughter) - no available phone number lives in [place], [place] Scotty Pedro(son) lives in [place], [place] . No available number Isiah Pedro (son) [phone]-Opted out Tae Noel(daughter) [phone]-Opted out Leti (daughter) [phone] -Opted out Anthony Pedro (son) [phone]-Opted out Prognosis: Ms. Noel is a 68 years old female with past medical history of chronic kidney disease, dementia, hypertension, peripheral vascular disease, history of CVA, hepatitis C and monoclonal gammopathy. Patient was brought to the emergency room by family member on 01/09/18 for further evaluation of pain in his right hip and back following a witnessed mechanical fall. Hip and pelvis x-ray revealed right femoral neck fracture and she underwent right hip bipolar hemiarthroplasty on 01/10/18. Clinical course complicated with lethargy, dysphagia, worsening renal function and inability to participate in physical therapy due to cognitive impairment. Given ongoing multiple comorbidities, patient remains at high risk for further complications, deterioration and decline. Code Status: No Code DNR Plan: PLAN: Legal decision maker:Patient has dementia and is not able to participate in medical decision making and is most likely able to regain that capacity. Patient never completed advance directives. Patient is and has 9 adult children whom according to [place] Statute would serve as her health care proxys. 5 of patient`s children have opted out of decision making and 3 other children were not able to be reached. Patient's daughter Caremn Noel is currently serving as health care proxy at this time. Goals: Aggressive short of no code CODE STATUS: No Code- DNR/DNI SYMPTOMS: * Pain: Patient recently had a mechanical fall. Hip and pelvis x-ray revealed right femoral neck fracture and she underwent right hip bipolar hemiarthroplasty. Patient currently has acetaminophen 650 mg every 4 prn.No signs of pain currently. Continue to monitor for pain. * Shortness of breath: Patient was intubated on 01/14/18 had increased lethargy , worsening respiratory failure. Sputum culture collected on 01/14+ for ESBL E. coli. On antibiotics and DuoNeb's every 6 hours ATC and prn. FiO2 currently 40% . No CPAP trials yet, patient is obtunded. Family does not want to proceed with tracheostomy if patient is not able to be medically extubated. * Debility: Progressive. Patient has history of dementia.Per family patient has been progressively declining in the past few months. Patient recently fell and underwent hip surgery. Physical therapy, speech therapy consulted. Given patient's cognitive limitation and multiple embolic strokes, she most likely will not be able to participate in rehabilitation. Palliative care will continue to follow the patient during hospital course as condition evolves, to assist patient/decision-maker with understanding of their medical conditions, weighing benefits/burdens of treatment options, for clarification of goals of treatment. Additionally will assist with any symptoms of palliative concern Attestation Collaborating MD Comments: Chart reviewed. Case discussed with palliative care RESIDENCY PROGRAM COORDINATOR. Above RESIDENCY PROGRAM COORDINATOR note reviewed and I concur. . Attestation: To help prompt me to consider important information that might be impacting today's encounter and assessment, information from prior notes written by myself or my colleagues may have been "brought forward" into today's note. My signature on this note, however, is an attestation that I personally performed the exam, history, and/or decision-making noted today, and, unless otherwise indicated, the interactions with patient, family, and staff as well as the review of records all occurred today. I also attest that the listed assessment and stated plan reflect my best clinical judgment today based on the combination of historical information, prior notes, and today's exam/ interactions. When time spent is documented, it refers only to time spent today by the signer, or if indicated, combined time spent today by collaborating physician/nurse practitioner.
--- NOTE | 2018-01-21 13:17 | P.PN ---
Subjective Interval history: Patient remain on the vent. and unresponsive. Physical Exam Vital signs: Vital Signs 01/20/18 16:00 01/20/18 16:38 01/20/18 16:39 Temperature 97.9 F Pulse Rate 75 65 Respiratory Rate 16 14 14 Blood Pressure 104/75 Pulse Oximetry 100 01/20/18 20:00 01/20/18 21:26 01/20/18 21:31 Temperature 98.2 F Pulse Rate 76 74 Respiratory Rate 14 14 14 Blood Pressure 132/77 Pulse Oximetry 94 L 01/21/18 00:00 01/21/18 00:05 01/21/18 04:00 Temperature 98 F 97.8 F Pulse Rate 65 77 Respiratory Rate 14 14 14 Blood Pressure 117/62 134/71 Pulse Oximetry 98 01/21/18 04:28 01/21/18 08:02 01/21/18 08:56 Temperature Pulse Rate 69 Respiratory Rate 14 14 14 Blood Pressure Pulse Oximetry 95 92 L 01/21/18 11:25 Temperature Pulse Rate Respiratory Rate 14 Blood Pressure Pulse Oximetry 96 Intake & Output 01/20/18 01/21/18 01/21/18 18:59 06:59 18:59 Intake Total 809 / 809 886 / 886 Output Total 500 / 500 450 / 450 Balance 309 / 309 436 / 436 Weight 80.9 kg Intake: IV 50 / 50 INVanz Inj 500 MG In NS Inj 50 50 / 50 ML @ 100 mls/hr IV.SIG Q24H [facility] Rx#:[id number] Tube Feeding 639 / 639 486 / 486 Tube Irrigant 120 / 120 400 / 400 Output: Urine 500 / 500 450 / 450 Other: Date of Last Bowel Movement 01/20/18 01/21/18 # Bowel Movements 2 1 - Urinary Catheter Management Indwelling Urethral Catheter Cath placed during this visit: yes Urethral indwelling: Yes Reason for continuing: Acute urinary retention Insertion date: 01/10/18 Insertion time: 12:17 Results - Labs CBC & Chem 7: 01/20/18 04:33 01/21/18 05:22 Laboratory Results - last 24 hr 01/21/18 05:22 Sodium 134 L Potassium 4.3 Chloride 97 L Carbon Dioxide 22.5 Anion Gap 15 BUN 115 H Creatinine 5.33 H Estimated GFR 10 L Random Glucose 106 Calcium 8.2 L Total Bilirubin 0.2 AST 48 H ALT 6 L Alkaline Phosphatase 79 Total Protein 5.9 L Albumin 1.6 L - Imaging Impressions Chest X-Ray 01/21/18 06:00 CONCLUSION: Persistent lobar consolidation left lower lung. Assessment and Plan - Assessment (1) Acute kidney injury Code(s): N17.9 - Acute kidney failure, unspecified Status: Acute - Attending Attestation (1) [id number] kidney injury ICD Codes: N17.9 - Acute kidney failure, unspecified; N18.9 - Chronic kidney disease, unspecified Status: Acute Plan: Patient has progressive decline on the kidney ultrasound showed echogenic kidney. Creatinine at 5.74 ->5.70 -> 5.4->5.6-> Creatinine is stable, K is normal. Continue D5 with sodium bicarbonate acidosis has improved Patient is a poor candidate for hemodialysis Palliative care meet with family continue aggressive treatment currently Patient has no urgent need for Dialysis. Avoid nephrotoxins Will continue to monitor urinary output and BMP. Palliative care are discussing with the family. (2) Hypertension ICD Codes: I10 - Essential (primary) hypertension Plan: Monitor BP (3) History of CVA (cerebrovascular accident) ICD Codes: Z86.73 - Personal history of transient ischemic attack (TIA), and cerebral infarction without residual deficits Status: Chronic Plan: with dementia (4) Hip fracture, right ICD Codes: S72.001A - Fracture of unspecified part of neck of right femur, initial encounter for closed fracture Plan: Post surgery (5) Iron deficiency anemia ICD Codes: D50.9 - Iron deficiency anemia, unspecified Plan: On replacement
[2018-01-21 14:02] LABS: Hematocrit 25.6 % (35.0-46.0); Hemoglobin 8.5 gm/dL (11.6-15.3); Mean Corpuscular Hemoglobin 28.6 pg (27.0-34.0); Mean Corpuscular Volume 86.6 fL (80.0-100.0); Mean Platelet Volume 8.7 fL (7.0-11.0); Platelet Count 288 th/mm3 (150-450); Red Blood Count 2.96 mil/mm3 (4.00-5.30); Red Cell Distribution Width 15.7 % (11.6-17.2); White Blood Count 8.4 th/mm3 (4.0-11.0)
--- NOTE | 2018-01-21 15:35 | P.DIET ---
Nutritional Evaluation Type of nutrition evaluation: follow-up Nutrition consult regarding: Tube Feeding (01/13 [facility] [place] for TF) Objective - Diagnosis Hip Fx - Objective Body Weight Used for Calculations: Upper end of IBW (55 kg) Energy Needs - Lower Range (kCal/kg): 28 Energy Needs - Upper Range (kCal/kg): 32 Lower Limit kCal/kg (kCals): 1,540 Upper Limit kCal/kg (kCals): 1,760 Lower Limit Protein Factor (Grams per Kg): 0.7 Upper Limit Protein Factor (Grams per Kg): 1.0 Lower Protein Needs (Protein): 39 Upper Protein Needs (Protein): 55 Dietitian Reviewed in Medical Record: Curent medications, Intake & Output, Labs , Tube feeding Diet Order: TF only Objective Comments: Hx includes CKD, HTN, dementia, multiple CVAs, Hep C Meds include Vit D3, pepcid, FeSO4 Labs: BUN/creat 115/5.33, Est GFR 10 Feeding - Current Tube Feeding Tube Feeding Product: Nepro Tube Feeding Rate: 50 (ls/hr) Current kCals Provided by Tube Feedin,160 Current Protein Provided by Tube Feeding (gPRO): 97 Current Free H2O Provided (m/l): 872 Assessment Assessment: Pt remains at high nutrition risk receiving TFing of Nepro @ 50 mls/hr. She is vented and unresponsive off of sedation. With current poor renal fxn and no plan for dialysis, recommend change TF to Suplena with a goal rate of 40 mls/hr to provide 1728 kcals, 43 gms protein and 706 mls of free water. Palliative Care Consult noted. CBW = 80.9 kg. Recommendations: Suplena @ 40 mls/hr goal Dietitian to Monitor: Lab values, Renal labs, Intake & Output, Tube feeding tolerance, Weight change, Medical course
--- NOTE | 2018-01-21 16:34 | P.PNCC ---
Subjective Subjective Remarks/Hospital Course: Patient is a 72-year-old female with history of chronic kidney disease, dementia , hepatitis C, hypertension, monoclonal gammopathy who was admitted to the hospitalist service after she sustained right femoral neck fracture from a fall , she underwent right hip hemiarthroplasty 01/10/18. Patient has stage IV kidney disease and was admitted with BUN 78 creatinine of 4. Patient had been declining since admission was lethargic since yesterday. A CT of the head was negative. Became more unresponsive and unarousable since today afternoon. BUN/ creatinine today 104/5.74. Due to worsening mental status she was brought to the ICU and critical care medicine was consulted. Palliative care was consulted due to advanced dementia is worsening chronic kidney disease and encephalopathy but family wants aggressive care. I evaluated the patient in the ICU, patient is completely unresponsive, not waking up to painful stimuli. Gurgling breath sounds not protecting airway. Emergently intubated and placed on mechanical ventilation. Suctioned out large amount of moderate white to yellow thick secretions from the glottic opening. Patient probably has pneumonia based on secretions and bilateral alveolar infiltrates on chest x- ray. Worsening mental status most likely secondary to metabolic encephalopathy , antibiotics broadened to Zosyn and vancomycin. SUBJ 01/15: Remains intubated critically ill. BUN/creatinine remains elevated at 109/5.7. Chest x-ray shows persistent bilateral left more than right infiltrates. Patient remains encephalopathy go for sedation. Multiple nonsustained episodes of ventricular tachycardia. Had extensive discussion with daughter at the bedside and son over the phone. I encouraged him to consider DNR status given patient's dementia, worsening renal failure, cardiac dysrhythmias and sepsis now 01/16: Patient remains intubated off sedation for 24 hours. Remains unresponsive very slight withdrawal to pain. Sputum culture growing GNR. BUN creatinine slightly improved 97/5.43. Urine output approximately 800 mL in 24 hours. Hb 6.8, 1U PRBC ordered. Updated son at bedside 01/17: Remains severely encephalopathic. MRI brain yesterday shows multiple embolic lacunar infarct involving frontal lobes, right basal ganglia and left temporal occipital lobe. Severe diffuse periventricular and subcortical white matter small vessel ischemic changes are again noted. Pontine ischemic changes are also noted. Also diffuse probable amyloid angiopathy or hypertensive microhemorrhages, scattered old lacunar infarcts. Neurology had been consulted. Sputum culture growing ESBL E. coli Zosyn DC'd and ertapenem started 630: Remains severely encephalopathy. Continues to have no spontaneous eye opening. Renal function worsening. BUN/cr 111/5.7. Urine output 1 L in 24 hours 01/19: Remains intubated off all sedation no improvement in neuro status intermittently moves extremities spontaneously. Did not follow commands. Diminishing urine output 500 mL in 24 hours 01/20: No change in clinical condition remains unresponsive very weak withdrawal to pain. Urine output 750 mL in 24 hours, no acute indication for hemodialysis. Subjective: 01/21 [facility] palliative care met with family today and they elected to change CODE STATUS to DO NOT RESUSCITATE. They indicated they would not want trach and PEG , needing time to discuss. I reached out to Carmen and she says she has no further questions at this time. Objective Vital Signs / I&O: Vital Signs 01/20/18 16:38 01/20/18 16:39 01/20/18 20:00 Temperature 98.2 F Pulse Rate 65 76 Respiratory Rate 14 14 14 Blood Pressure 132/77 Pulse Oximetry 100 01/20/18 21:26 01/20/18 21:31 01/21/18 00:00 Temperature 98 F Pulse Rate 74 65 Respiratory Rate 14 14 14 Blood Pressure 117/62 Pulse Oximetry 94 L 01/21/18 00:05 01/21/18 04:00 01/21/18 04:28 Temperature 97.8 F Pulse Rate 77 Respiratory Rate 14 14 14 Blood Pressure 134/71 Pulse Oximetry 98 95 01/21/18 08:00 01/21/18 08:02 01/21/18 08:56 Temperature 98.3 F Pulse Rate 66 69 Respiratory Rate 14 14 14 Blood Pressure 119/77 Pulse Oximetry 92 L 92 L 01/21/18 10:00 01/21/18 11:25 01/21/18 12:00 Temperature 98.8 F Pulse Rate 70 77 Respiratory Rate 14 14 Blood Pressure 137/70 Pulse Oximetry 96 97 01/21/18 14:00 01/21/18 16:20 01/21/18 16:23 Temperature Pulse Rate 72 73 Respiratory Rate 14 14 Blood Pressure Pulse Oximetry 98 Intake & Output 01/20/18 01/21/18 01/21/18 18:59 06:59 18:59 Intake Total 809 / 809 886 / 886 Output Total 500 / 500 450 / 450 Balance 309 / 309 436 / 436 Weight 80.9 kg Intake: IV 50 / 50 INVanz Inj 500 MG In NS Inj 50 50 / 50 ML @ 100 mls/hr IV.SIG Q24H [facility] Rx#:[id number] Tube Feeding 639 / 639 486 / 486 Tube Irrigant 120 / 120 400 / 400 Output: Urine 500 / 500 450 / 450 Other: Date of Last Bowel Movement 01/20/18 01/21/18 # Bowel Movements 2 1 Result Diagrams: 01/26/18 05:45 01/26/18 05:45 Objective Remarks: GENERAL: -[place] female lying in bed, off all sedation, remains encephalopathic SKIN: No rashes, ecchymoses or lesions. HEAD: Atraumatic. Normocephalic. EYES: Pupils equal round. No spontaneous eye opening ENT: Nose without bleeding, Edentulous. Orotracheally intubated NECK: Trachea midline. No JVD or lymphadenopathy. CARDIOVASCULAR: S1 S2 normal rhythm without murmurs, gallops, or rubs. RESPIRATORY: Diminished breath sounds with coarse rhonchi bilaterally. GASTROINTESTINAL: Abdomen soft, nondistended. Nontender MUSCULOSKELETAL: Knee immobilizer in place right knee. NEUROLOGICAL: Patient remains unresponsive off sedation, R gaze preference with horizontal nystagmus. Slight withdrawal of extremities noted with painful stimuli, no eye opening. Assessment and Plan - Assessment and Plan Plan: A/P Assessment and Plan ASSESSMENT/PLAN: NEURO: Acute metabolic encephalopathy Multiple scattered embolic strokes, pontine ischemia Probable hypertensive microhemorrhages versus amyloid angiopathy Dementia -MRI Brain 01/17/18: Multiple embolic lacunar infarct involving frontal lobes, right basal ganglia and left temporal occipital lobe. Severe diffuse periventricular and subcortical white matter small vessel ischemic changes. Pontine ischemic changes noted. Probable amyloid angiopathy or hypertensive microhemorrhages, scattered old lacunar infarcts. -Neurology Dr. Hurt, would support transition to comfort if family elects. -Continue aspirin daily, unable to anticoagulate due to anemia requiring transfusion. Continue heparin 5000 units subcu every 12 -Encephalopathy most likely secondary to multiple embolic strokes, sepsis -CT of the head negative 01/13, EEG no seizures -Not on any sedation -Carotid Doppler no significant stenosis RESP: Acute hypoxemic respiratory failure HCAP/ESBL E Coli -Emergently intubated and placed on mechanical ventilation 01/14. VENT DAY 8 -Daily spontaneous breathing trials but mental status will not permit extubation -DuoNeb every 6 hours scheduled and as needed -See ID for ABX -Palliative care discussed with family regarding tracheostomy and PEG tube. It appears they do not want trach and PEG. They are needing more time but are discussing transition to comfort measures. CV: Nonsustained ventricular tachycardia Hypertension -Metoprolol IV as needed for PVCs/nonsustained V. tach -Serial cardiac enzymes. Prev Echo 2016, preserved LV ejection fraction, moderate LVH -Continue carvedilol continue hydralazine, nicardipine GI: -Change tube feeds to Suplena at 40 mL/h per nutrition recommendations. -IV famotidine for GI prophylaxis : Acute on chronic kidney disease -Monitor renal function closely. French catheter. Nephrology following Dr. Sanchez Agree with nephrology, patient is a poor candidate for hemodialysis. ID: Severe sepsis Healthcare associated pneumonia /ESBL E. coli on culture 01/14 -On ertapenem renally dosed since 01/17 #5. -ESBL isolation HEME: Anemia requiring transfusion -Monitor CBC, CMP, coags MSK: Right hip fracture status post hemiarthroplasty -Post op management per Ortho. PT ENDO: -Watch closely for hyperkalemia -Careful electrolyte replacement PROPH: -Bilateral lower extremity SCDs. Sq Heparin 5000 sq q12. IV famotidine 20 mg every 12 LINES: -Utilize peripheral IVs, CODE STATUS changed to DO NOT RESUSCITATE. I reached out to Carmen who is healthcare proxy. She states no further questions at this time. Discussed with Brody Level 2 follow-up
[2018-01-22] MEDS: Famotidine PF Inj 20 MG/2 ML Vial IV.PUSH SCH ×2 (05:15→18:08)
[2018-01-22] MEDS: NIFEdipine 10 MG Capsule NG/OG SCH ×3 (05:15→21:46)
[2018-01-22] MEDS: Oral Hygiene Kit OROPHARYNG SCH ×3 (05:16→16:35)
[2018-01-22 06:47] LABS: Albumin 1.8 g/dL (3.4-5.0); Anion Gap 15 meq/L (5-15); Aspartate Aminotransferase 51 U/L (15-37); Blood Urea Nitrogen 123 mg/dL (7-18); Calcium 8.4 mg/dL (8.5-10.1); Carbon Dioxide 23.4 meq/L (21.0-32.0); Chloride 99 meq/L (98-107); Glomerular Filtration Rate 9 mL/min (>89); Glucose,Random 123 mg/dL (74-106); Sodium 137 meq/L (136-145)
[2018-01-22 06:51] LABS: Alanine Aminotransferase 8 U/L (10-53); Alkaline Phosphatase 82 U/L (45-117); Total Protein 6.2 g/dL (6.4-8.2)
[2018-01-22] MEDS: WATER IV.SIG SCH ×2 (07:47)
[2018-01-22] MEDS: DEXTROSE 5% IV.SIG SCH ×2 (07:47)
[2018-01-22] MEDS: SODIUM BICARBONATE IV.SIG SCH ×2 (07:47)
[2018-01-22] MEDS: Carvedilol 6.25 MG Tablet NG/OG SCH ×2 (08:12→21:45)
[2018-01-22] MEDS: Ferrrous Sulfate 300 MG/5 ML UDC NG/OG SCH ×2 (08:12→21:45)
[2018-01-22] MEDS: Heparin - SQ 10,000 UNITS/ML Vial SQ SCH ×2 (08:12→21:46)
[2018-01-22] MEDS: Chlorhexidine 0.12% Oral Kit 15 ML UDC SWISH-SPIT SCH ×2 (08:13→21:46)
--- NOTE | 2018-01-22 09:44 | P.PNNEU ---
Subjective Subjective Comments: No acute events reported No headache No chest pain No dyspnea Active Medications: Active Medications Generic Name Dose Route Start Last Admin Trade Name Freq PRN Reason Stop Dose Admin Acetaminophen 650 mg 01/19/18 00:01 Tylenol PO Q4H PRN PAIN, VALDEZ, TEMP>100.6 Albuterol 1 ampul 01/19/18 00:00 Duoneb Neb (Prn) NEB Q2HR NEB PRN SHORTNESS OF BREATH Albuterol 1 ampul 01/19/18 04:00 01/22/18 03:56 Duoneb Neb (Lenora) NEB 1 ampul Q6HR NEB L[facility]ORA Administration Aspirin 81 mg 01/19/18 09:00 01/22/18 08:13 Aspirin Chew CHEW 81 mg DAILY LENORA Administration Carvedilol 6.25 mg 01/19/18 09:00 01/22/18 08:12 Coreg NG/OG 6.25 mg Q12HR LENORA Administration Chlorhexidine Gluconate 15 ml 01/19/18 08:00 01/22/18 08:13 Peridex 0.12% Oral Kit SWISH-SPIT 15 ml BID@0800,2000 LENORA Administration Clonidine HCl 0.1 mg 01/19/18 00:01 Catapres NG/OG Q6H PRN SBP>160, DBP>90 Famotidine 10 mg 01/19/18 06:00 01/22/18 05:15 Pepcid Pf Inj IV.PUSH 10 mg Q12H [facility] Administration Ferrous Sulfate 300 mg 01/19/18 09:00 01/22/18 08:12 Ferrrous Sulfate Liq NG/OG 300 mg BID L[facility]A Administration Heparin Sodium (Porcine) 5,000 units 01/19/18 09:00 01/22/18 08:12 Heparin Inj SQ 5,000 units Q12HR L[facility]A Administration Hydralazine HCl 100 mg 01/19/18 04:00 01/22/18 05:15 Apresoline NG/OG 100 mg Q8H [facility] Administration Ertapenem 500 mg/ Sodium 50 mls @ 100 mls/hr 01/19/18 10:00 01/21/18 11:29 Chloride IV.SIG Infused Q24H [facility] Infusion Naloxone HCl 0.4 mg 01/19/18 00:01 Narcan Inj IV.PUSH UNSCH PRN SEE COMMENTS Nifedipine 30 mg 01/19/18 06:00 01/22/18 05:15 Procardia NG/OG 30 mg Q8HR [facility] Administration Sodium Chloride 2 ml 01/19/18 00:01 Ns Inj IV.FLUSH UNSCH PRN FLUSH AFTER USING IV ACCESS Sodium Chloride 2 ml 01/19/18 09:00 01/22/18 08:13 Ns Flush IV.FLUSH 2 ml BID [facility] Administration Vitamin D 5,000 unit 01/19/18 06:00 01/22/18 08:12 Vitamin D3 NG/OG 5,000 unit DAILY [facility]A Administration Allergies/Adverse Reactions: Allergies Allergy/AdvReac Type Severity Reaction Status Date / Time No Known Allergies Allergy Unknown Uncoded 01/10/18 02:26 Physical Exam Vital signs: Vital Signs 01/21/18 10:00 01/21/18 11:25 01/21/18 12:00 Temperature 98.8 F Pulse Rate 70 77 Respiratory Rate 14 14 Blood Pressure 137/70 Pulse Oximetry 96 97 01/21/18 14:00 01/21/18 16:00 01/21/18 16:20 Temperature 98.4 F Pulse Rate 72 72 Respiratory Rate 14 14 Blood Pressure 123/68 Pulse Oximetry 98 01/21/18 16:23 01/21/18 18:00 01/21/18 20:00 Temperature 98.5 F Pulse Rate 73 76 71 Respiratory Rate 14 14 Blood Pressure 138/79 Pulse Oximetry 97 01/21/18 20:34 01/21/18 22:00 01/22/18 00:00 Temperature 98.2 F Pulse Rate 74 67 81 Respiratory Rate 14 14 Blood Pressure 146/79 H Pulse Oximetry 98 100 01/22/18 02:00 01/22/18 03:56 01/22/18 04:00 Temperature 98.6 F Pulse Rate 78 76 74 Respiratory Rate 14 14 Blood Pressure 140/80 Pulse Oximetry 98 100 01/22/18 06:00 Temperature Pulse Rate 67 Respiratory Rate Blood Pressure Pulse Oximetry Intake & Output 01/21/18 01/22/18 01/22/18 18:59 06:59 18:59 Intake Total 680 / 680 644 / 644 Output Total 500 / 500 600 / 600 Balance 180 / 180 44 / 44 Weight 80.7 kg Intake: IV 50 / 50 INVanz Inj 500 MG In NS Inj 50 50 / 50 ML @ 100 mls/hr IV.SIG Q24H [facility] Rx#:[id number] Tube Feeding 630 / 630 524 / 524 Water Bolus Amount 120 / 120 Output: Urine Amount (Catheter) 500 / 500 600 / 600 Indwelling Urethral Catheter 500 / 500 600 / 600 Other: Date of Last Bowel Movement 01/21/18 01/22/18 # Bowel Movements 1 1 Narrative: comatose no rxt threat will not follow commands stirs to pinch no change today - Urinary Catheter Management Indwelling Urethral Catheter Cath placed during this visit: yes Urethral indwelling: Yes Reason for continuing: Acute urinary retention Insertion date: 01/10/18 Insertion time: 12:17 Objective Laboratory Results - last 24 hr 01/21/18 01/22/18 13:45 05:40 WBC 8.4 RBC 2.96 L Hgb 8.5 L Hct 25.6 L MCV 86.6 MCH 28.6 MCHC 33.0 RDW 15.7 Plt Count 288 D MPV 8.7 Sodium 137 Potassium 4.0 Chloride 99 Carbon Dioxide 23.4 Anion Gap 15 BUN 123 H Creatinine 5.67 H Estimated GFR 9 L Random Glucose 123 H Calcium 8.4 L Total Bilirubin 0.3 AST 51 H ALT 8 L Alkaline Phosphatase 82 Total Protein 6.2 L Albumin 1.8 L Review/Management - Review/Management Plan: imp px poor due to age mult cva dementia not improving neurowise echo The left ventricular systolic function is normal with an estimated ejection fraction in the range of 55-60%. Mild concentric left ventricular hypertrophy. Trace mitral valve regurgitation. Trace aortic valve regurgitation. There is mild tricuspid valve regurgitation. A left sided pleural effusion is present. i would support comfort measures on her 01/21/18 no change as above i dw daughter. 01/22/18 now dnr on vent no change in her exam will fu occasionally
[2018-01-22] MEDS: ERTAPENEM IV.SIG SCH (10:47)
[2018-01-22] MEDS: SODIUM CHLOR 0.9% IV.SIG SCH (10:47)
--- NOTE | 2018-01-22 14:46 | P.PN ---
Subjective Interval history: Patient remain on the vent., off sedation and unresponsive. Physical Exam Vital signs: Vital Signs 01/21/18 16:00 01/21/18 16:20 01/21/18 16:23 Temperature 98.4 F Pulse Rate 72 73 Respiratory Rate 14 14 14 Blood Pressure 123/68 Pulse Oximetry 98 01/21/18 18:00 01/21/18 20:00 01/21/18 20:34 Temperature 98.5 F Pulse Rate 76 71 74 Respiratory Rate 14 14 Blood Pressure 138/79 Pulse Oximetry 97 98 01/21/18 22:00 01/22/18 00:00 01/22/18 02:00 Temperature 98.2 F Pulse Rate 67 81 78 Respiratory Rate 14 Blood Pressure 146/79 H Pulse Oximetry 100 01/22/18 03:56 01/22/18 04:00 01/22/18 06:00 Temperature 98.6 F Pulse Rate 76 74 67 Respiratory Rate 14 14 Blood Pressure 140/80 Pulse Oximetry 98 100 01/22/18 09:44 01/22/18 09:46 Temperature Pulse Rate 70 Respiratory Rate 14 14 Blood Pressure Pulse Oximetry 97 Intake & Output 01/21/18 01/22/18 01/22/18 18:59 06:59 18:59 Intake Total 680 / 680 644 / 644 Output Total 500 / 500 600 / 600 Balance 180 / 180 44 / 44 Weight 80.7 kg Intake: IV 50 / 50 INVanz Inj 500 MG In NS Inj 50 50 / 50 ML @ 100 mls/hr IV.SIG Q24H [facility] Rx#:[id number] Tube Feeding 630 / 630 524 / 524 Water Bolus Amount 120 / 120 Output: Urine Amount (Catheter) 500 / 500 600 / 600 Indwelling Urethral Catheter 500 / 500 600 / 600 Other: Date of Last Bowel Movement 01/21/18 01/22/18 # Bowel Movements 1 1 Narrative: Remain unresponsive, off sedation. - Constitutional chronically ill appearing, obtunded - Routine HEENT Exam Head: Present: normocephalic - Routine Neck Exam Present: supple, JVD - Routine Respiratory Exam Present: patient mechanically ventilated, rhonchi, crackles, distant breath sounds, diminished air movement - Routine Cardiovascular Exam Present: S1, S2, tachycardia - Routine Abdominal Exam Present: soft, distended - Routine Extremities Exam Present: edema - Urinary Catheter Management Indwelling Urethral Catheter Cath placed during this visit: yes Urethral indwelling: Yes Reason for continuing: Acute urinary retention Insertion date: 01/10/18 Insertion time: 12:17 Results - Labs CBC & Chem 7: 01/21/18 13:45 01/22/18 05:40 Laboratory Results - last 24 hr 01/22/18 01/22/18 05:40 06:30 Sodium 137 Potassium 4.0 Chloride 99 Carbon Dioxide 23.4 Anion Gap 15 BUN 123 H Creatinine 5.67 H Estimated GFR 9 L Random Glucose 123 H Calcium 8.4 L Total Bilirubin 0.3 AST 51 H ALT 8 L Alkaline Phosphatase 82 Total Protein 6.2 L Albumin 1.8 L Stl C.difficile Tox PCR Negative St C. diff Tox Epid 027 Negative Assessment and Plan - Assessment (1) Acute kidney injury Code(s): N17.9 - Acute kidney failure, unspecified Status: Acute - Plan (1) [id number] kidney injury ICD Codes: N17.9 - Acute kidney failure, unspecified; N18.9 - Chronic kidney disease, unspecified Status: Acute Plan: Patient has progressive decline on the kidney ultrasound showed echogenic kidney. Creatinine at 5.74 ->5.70 -> 5.4->5.6-> Creatinine is stable, K is normal. Continue D5 with sodium bicarbonate acidosis has improved Patient is a poor candidate for hemodialysis Palliative care meet with family continue aggressive treatment currently Avoid nephrotoxins Will continue to monitor urinary output and BMP. Palliative care are discussing with the family. Family does not want Trach. and PEG. Patient has no urgent need for Dialysis. (2) Hypertension ICD Codes: I10 - Essential (primary) hypertension Plan: Monitor BP (3) History of CVA (cerebrovascular accident) ICD Codes: Z86.73 - Personal history of transient ischemic attack (TIA), and cerebral infarction without residual deficits Status: Chronic Plan: with dementia (4) Hip fracture, right ICD Codes: S72.001A - Fracture of unspecified part of neck of right femur, initial encounter for closed fracture Plan: Post surgery (5) Iron deficiency anemia ICD Codes: D50.9 - Iron deficiency anemia, unspecified Plan: On replacement
--- NOTE | 2018-01-22 17:09 | P.PNPAL ---
Reason for Visit Reason for visit: a. To assist with evaluation and management of symptoms including: Shortness of breath, pain, debility b. To assist medical decision maker(s) with: better understanding of current medical conditions; weighing benefits/burdens of medical treatment options; making medical treatment decisions. Subjective Subjective/Interval History: Patient seen and examined in her room earlier on around 1015hrs. Patient remains intubated on a mechanical ventilation. Patient slightly withdraws from noxious stimulation with bilateral lower extremities otherwise no meaningful response to simple commands. Laboratory workup today revealing sodium 137, potassium 4.0, BUN/creatinine 123/ 5.67, random glucose 123, AST 51, ALT 8, total protein 6.2, albumin 1.8. Tube feeds infusing via nasogastric tube at goal rate. Stool for C. difficile negative No family at bedside today. Case discussed with bedside RN Advance Directives Living Will: Never completed (Changed code status to DNR) Health Care Surrogate: Never completed Durable Power of Theater [employer] Producer: Never completed Health Care Surrogate Name and Number: Prashant Noel [phone] Objective Vital Signs: Vital Signs 01/21/18 18:00 01/21/18 20:00 01/21/18 20:34 Temperature 98.5 F Pulse Rate 76 71 74 Respiratory Rate 14 14 Blood Pressure 138/79 Pulse Oximetry 97 98 01/21/18 22:00 01/22/18 00:00 01/22/18 02:00 Temperature 98.2 F Pulse Rate 67 81 78 Respiratory Rate 14 Blood Pressure 146/79 H Pulse Oximetry 100 01/22/18 03:56 01/22/18 04:00 01/22/18 06:00 Temperature 98.6 F Pulse Rate 76 74 67 Respiratory Rate 14 14 Blood Pressure 140/80 Pulse Oximetry 98 100 01/22/18 08:00 01/22/18 09:44 01/22/18 09:46 Temperature 97.9 F Pulse Rate 65 70 Respiratory Rate 14 14 14 Blood Pressure 125/75 Pulse Oximetry 99 97 01/22/18 10:00 01/22/18 12:00 01/22/18 14:00 Temperature 97.2 F L Pulse Rate 65 68 68 Respiratory Rate 14 Blood Pressure 137/77 Pulse Oximetry 97 01/22/18 16:00 01/22/18 16:45 Temperature 97.5 F L Pulse Rate 62 67 Respiratory Rate 14 14 Blood Pressure 149/78 H Pulse Oximetry 97 98 Intake & Output 01/21/18 01/22/18 01/22/18 18:59 06:59 18:59 Intake Total 680 / 680 644 / 644 50 / 50 Output Total 500 / 500 600 / 600 Balance 180 / 180 44 / 44 50 / 50 Weight 80.7 kg Intake: IV 50 / 50 50 / 50 INVanz Inj 500 MG In NS Inj 50 50 / 50 50 / 50 ML @ 100 mls/hr IV.SIG Q24H [facility] Rx#:[id number] Tube Feeding 630 / 630 524 / 524 Water Bolus Amount 120 / 120 Output: Urine Amount (Catheter) 500 / 500 600 / 600 Indwelling Urethral Catheter 500 / 500 600 / 600 Other: Date of Last Bowel Movement 01/21/18 01/22/18 # Bowel Movements 1 1 Physical Exam: Physical Exam CONSTITUTIONAL/GENERAL: This is an elderly patient, remains intubated on mechanical ventilation. TUBES/LINES/DRAINS:NC, PIV, FC, NGT, ETT, bilateral soft restraints SKIN: No jaundice, rashes, or lesions. Ecchymoses on upper extremities. Healing surgical incision to right lateral hip. HEAD: Atraumatic. Normocephalic. EYES: PERRLA. Fundi not examined. ENT: Nose without bleeding or purulent drainage.NGT with TF Nepro infusing at goal rate NECK: Trachea midline. Supple, nontender. CARDIOVASCULAR: S1, S2 normal, gallops, or rubs. No JVD. Peripheral pulses symmetric. RESPIRATORY/CHEST: Symmetric, unlabored respirations. No wheezes, rhonchi. GASTROINTESTINAL: Abdomen soft, non-tender, nondistended. NGT with tube feeds infusing at goal rate. Bowel sounds present. GENITOURINARY: Without palpable bladder distension. French catheter in place. MUSCULOSKELETAL: Extremities without clubbing, cyanosis. No mottling or clubbing. Edematous to all 4 extremities NEUROLOGICAL: intubated with no sedation, no eye opening , slight withdrawal to noxious stimulation with BLE PSYCHIATRIC: Unable to assess. Diagnostic Tests Laboratory: Laboratory Results - last 72 hr 01/19/18 01/20/18 01/20/18 16:20 04:33 04:33 WBC 9.1 RBC 2.62 L Hgb 7.6 L Hct 22.6 L MCV 86.1 MCH 29.0 MCHC 33.6 RDW 15.6 Plt Count 126 L D MPV 9.2 Sodium 141 136 Potassium 4.5 4.3 Chloride 103 98 Carbon Dioxide 27.3 26.2 Anion Gap 11 12 BUN 109 H 106 H Creatinine 5.34 H 5.35 H Estimated GFR 9 L 9 L Random Glucose 148 H 122 H Calcium 6.2 L* 8.0 L D Prot Corrected Calcium 9.7 Total Bilirubin 1.5 H 0.2 AST 14 L 52 H ALT Less than 6 L Less than 6 L Alkaline Phosphatase Less than 10 L 67 Total Protein 1.4 L 5.9 L D Albumin 0.4 L 1.6 L D Stl C.difficile Tox PCR St C. diff Tox Epid 027 01/21/18 01/21/18 01/22/18 05:22 13:45 05:40 WBC 8.4 RBC 2.96 L Hgb 8.5 L Hct 25.6 L MCV 86.6 MCH 28.6 MCHC 33.0 RDW 15.7 Plt Count 288 D MPV 8.7 Sodium 134 L 137 Potassium 4.3 4.0 Chloride 97 L 99 Carbon Dioxide 22.5 23.4 Anion Gap 15 15 BUN 115 H 123 H Creatinine 5.33 H 5.67 H Estimated GFR 10 L 9 L Random Glucose 106 123 H Calcium 8.2 L 8.4 L Prot Corrected Calcium Total Bilirubin 0.2 0.3 AST 48 H 51 H ALT 6 L 8 L Alkaline Phosphatase 79 82 Total Protein 5.9 L 6.2 L Albumin 1.6 L 1.8 L Stl C.difficile Tox PCR St C. diff Tox Epid 027 01/22/18 06:30 WBC RBC Hgb Hct MCV MCH MCHC RDW Plt Count MPV Sodium Potassium Chloride Carbon Dioxide Anion Gap BUN Creatinine Estimated GFR Random Glucose Calcium Prot Corrected Calcium Total Bilirubin AST ALT Alkaline Phosphatase Total Protein Albumin Stl C.difficile Tox PCR Negative St C. diff Tox Epid 027 Negative Result Diagrams: 01/21/18 13:45 01/22/18 05:40 Imaging: Chest X-Ray 01/21/18 06:00 CONCLUSION: Persistent lobar consolidation left lower lung. Procedures: 01/10/2018-right hip bipolar hemiarthroplasty 01/14/18-Intubation Assessment and Plan - Disease Oriented Problem List (1) Acute hypoxemic respiratory failure (2) Embolic infarction (3) Hypertension (4) Nonsustained ventricular tachycardia (5) Dementia (6) Hip fracture, right (7) History of CVA (cerebrovascular accident) Pertinent Non-Medical Issues: Psychosocial:Patient was raised in [place], [place]. 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 Patient worked 2 jobs at a time most of her life. Patient has been twice. Her first is and she is from her second . Patient has 9 living adult children. Spiritual:Patient is a [employer] Legal:Patient never completed advance directives. She is . Ethical issues impacting care:None identified at this time. Important Contacts: Carmen Noel(daughter) [phone] Willing to serve as Health care proxy (Lives with patient) Kunal Pedro(son/eldest) [phone] in [place] Opted out-Currently in town supporting his sister Carmen Noel(son) [phone] -Unreachable-Multiple telephone call attempts MickeyDivine Pedro(daughter) - no available phone number lives in [place], [place] Scotty Pedro(son) lives in [place], [place] . No available number Isiah Pedro (son) [phone]-Opted out Tae Noel(daughter) [phone]-Opted out Leti (daughter) [phone] -Opted out Anthony Pedro (son) [phone]-Opted out Prognosis: Ms. Noel is a 68 years old female with past medical history of chronic kidney disease, dementia, hypertension, peripheral vascular disease, history of CVA, hepatitis C and monoclonal gammopathy. Patient was brought to the emergency room by family member on 01/09/18 for further evaluation of pain in his right hip and back following a witnessed mechanical fall. Hip and pelvis x-ray revealed right femoral neck fracture and she underwent right hip bipolar hemiarthroplasty on 01/10/18. Clinical course complicated with lethargy, dysphagia, worsening renal function and inability to participate in physical therapy due to cognitive impairment. Given ongoing multiple comorbidities, patient remains at high risk for further complications, deterioration and decline. Code Status: No Code DNR Plan: PLAN: Legal decision maker:Patient has dementia and is not able to participate in medical decision making and is most likely able to regain that capacity. Patient never completed advance directives. Patient is and has 9 adult children whom according to [place] Statute would serve as her health care proxys. 5 of patient`s children have opted out of decision making and 3 other children were not able to be reached. Patient's daughter Carmen Noel is currently serving as health care proxy at this time. Goals: Aggressive short of no code CODE STATUS: No Code- DNR/DNI SYMPTOMS: * Pain: Patient recently had a mechanical fall. Hip and pelvis x-ray revealed right femoral neck fracture and she underwent right hip bipolar hemiarthroplasty. Patient currently has acetaminophen 650 mg every 4 prn.No signs of pain currently. Continue to monitor for pain. * Shortness of breath: Patient was intubated on 01/14/18 had increased lethargy , worsening respiratory failure. Sputum culture collected on 01/14+ for ESBL E. coli. On antibiotics and DuoNeb's every 6 hours ATC and prn. Family does not want to proceed with tracheostomy if patient is not able to be medically extubated. * Debility: Progressive. Patient has history of dementia.Per family patient has been progressively declining in the past few months. Patient recently fell and underwent hip surgery. Physical therapy, speech therapy consulted. Given patient's cognitive limitation and multiple embolic strokes, she most likely will not be able to participate in rehabilitation. Palliative care will continue to follow the patient during hospital course as condition evolves, to assist patient/decision-maker with understanding of their medical conditions, weighing benefits/burdens of treatment options, for clarification of goals of treatment. Additionally will assist with any symptoms of palliative concern Attestation Attestation: To help prompt me to consider important information that might be impacting today's encounter and assessment, information from prior notes written by myself or my colleagues may have been "brought forward" into today's note. My signature on this note, however, is an attestation that I personally performed the exam, history, and/or decision-making noted today, and, unless otherwise indicated, the interactions with patient, family, and staff as well as the review of records all occurred today. I also attest that the listed assessment and stated plan reflect my best clinical judgment today based on the combination of historical information, prior notes, and today's exam/ interactions. When time spent is documented, it refers only to time spent today by the signer, or if indicated, combined time spent today by collaborating physician/nurse practitioner.
--- NOTE | 2018-01-22 20:13 | P.PNCC ---
Subjective Subjective Remarks/Hospital Course: Patient is a 72-year-old female with history of chronic kidney disease, dementia , hepatitis C, hypertension, monoclonal gammopathy who was admitted to the hospitalist service after she sustained right femoral neck fracture from a fall , she underwent right hip hemiarthroplasty 01/10/18. Patient has stage IV kidney disease and was admitted with BUN 78 creatinine of 4. Patient had been declining since admission was lethargic since yesterday. A CT of the head was negative. Became more unresponsive and unarousable since today afternoon. BUN/ creatinine today 104/5.74. Due to worsening mental status she was brought to the ICU and critical care medicine was consulted. Palliative care was consulted due to advanced dementia is worsening chronic kidney disease and encephalopathy but family wants aggressive care. I evaluated the patient in the ICU, patient is completely unresponsive, not waking up to painful stimuli. Gurgling breath sounds not protecting airway. Emergently intubated and placed on mechanical ventilation. Suctioned out large amount of moderate white to yellow thick secretions from the glottic opening. Patient probably has pneumonia based on secretions and bilateral alveolar infiltrates on chest x- ray. Worsening mental status most likely secondary to metabolic encephalopathy , antibiotics broadened to Zosyn and vancomycin. SUBJ 01/15: Remains intubated critically ill. BUN/creatinine remains elevated at 109/5.7. Chest x-ray shows persistent bilateral left more than right infiltrates. Patient remains encephalopathy go for sedation. Multiple nonsustained episodes of ventricular tachycardia. Had extensive discussion with daughter at the bedside and son over the phone. I encouraged him to consider DNR status given patient's dementia, worsening renal failure, cardiac dysrhythmias and sepsis now 01/16: Patient remains intubated off sedation for 24 hours. Remains unresponsive very slight withdrawal to pain. Sputum culture growing GNR. BUN creatinine slightly improved 97/5.43. Urine output approximately 800 mL in 24 hours. Hb 6.8, 1U PRBC ordered. Updated son at bedside 01/17: Remains severely encephalopathic. MRI brain yesterday shows multiple embolic lacunar infarct involving frontal lobes, right basal ganglia and left temporal occipital lobe. Severe diffuse periventricular and subcortical white matter small vessel ischemic changes are again noted. Pontine ischemic changes are also noted. Also diffuse probable amyloid angiopathy or hypertensive microhemorrhages, scattered old lacunar infarcts. Neurology had been consulted. Sputum culture growing ESBL E. coli Zosyn DC'd and ertapenem started 630: Remains severely encephalopathy. Continues to have no spontaneous eye opening. Renal function worsening. BUN/cr 111/5.7. Urine output 1 L in 24 hours 01/19: Remains intubated off all sedation no improvement in neuro status intermittently moves extremities spontaneously. Did not follow commands. Diminishing urine output 500 mL in 24 hours 01/20: No change in clinical condition remains unresponsive very weak withdrawal to pain. Urine output 750 mL in 24 hours, no acute indication for hemodialysis. [facility] with family today and they elected to change CODE STATUS to DO NOT RESUSCITATE. They indicated they would not want trach and PEG , needing time to discuss. I reached out to Carmen and she says she has no further questions at this time. Subjective: 01/22 No neuro change. Family indicates no trach/peg. Awaiting decision regarding withdrawal Objective Vital Signs / I&O: Vital Signs 01/21/18 20:34 01/21/18 22:00 01/22/18 00:00 Temperature 98.2 F Pulse Rate 74 67 81 Respiratory Rate 14 14 Blood Pressure 146/79 H Pulse Oximetry 98 100 01/22/18 02:00 01/22/18 03:56 01/22/18 04:00 Temperature 98.6 F Pulse Rate 78 76 74 Respiratory Rate 14 14 Blood Pressure 140/80 Pulse Oximetry 98 100 01/22/18 06:00 01/22/18 08:00 01/22/18 09:44 Temperature 97.9 F Pulse Rate 67 65 Respiratory Rate 14 14 Blood Pressure 125/75 Pulse Oximetry 99 97 01/22/18 09:46 01/22/18 10:00 01/22/18 12:00 Temperature 97.2 F L Pulse Rate 70 65 68 Respiratory Rate 14 14 Blood Pressure 137/77 Pulse Oximetry 97 01/22/18 14:00 01/22/18 16:00 01/22/18 16:45 Temperature 97.5 F L Pulse Rate 68 62 67 Respiratory Rate 14 14 Blood Pressure 149/78 H Pulse Oximetry 97 98 01/22/18 18:00 Temperature Pulse Rate 71 Respiratory Rate Blood Pressure Pulse Oximetry Intake & Output 01/22/18 01/22/18 01/23/18 06:59 18:59 06:59 Intake Total 644 / 644 731 / 731 Output Total 600 / 600 525 / 525 Balance 44 / 44 206 / 206 Weight 80.7 kg Intake: IV 50 / 50 INVanz Inj 500 MG In NS Inj 50 50 / 50 ML @ 100 mls/hr IV.SIG Q24H [facility] Rx#:[id number] Tube Feeding 524 / 524 481 / 481 Tube Irrigant 200 / 200 Water Bolus Amount 120 / 120 Output: Urine Amount (Catheter) 600 / 600 525 / 525 Indwelling Urethral Catheter 600 / 600 525 / 525 Other: Date of Last Bowel Movement 01/22/18 01/22/18 # Bowel Movements 1 2 Result Diagrams: 01/21/18 13:45 01/22/18 05:40 Objective Remarks: GENERAL: -Swazi female lying in bed, off all sedation, remains encephalopathic SKIN: No rashes, ecchymoses or lesions. HEAD: Atraumatic. Normocephalic. EYES: Pupils equal round. No spontaneous eye opening ENT: Nose without bleeding, Edentulous. Orotracheally intubated, tongue protruding. NECK: Trachea midline. No JVD or lymphadenopathy. CARDIOVASCULAR: S1 S2 normal rhythm without murmurs, gallops, or rubs. RESPIRATORY: Diminished breath sounds with coarse rhonchi bilaterally. GASTROINTESTINAL: Abdomen soft, nondistended. Nontender MUSCULOSKELETAL: Knee immobilizer in place right knee. NEUROLOGICAL: Patient remains unresponsive off sedation, R gaze preference with horizontal nystagmus. Slight withdrawal of extremities noted with painful stimuli, no eye opening. Assessment and Plan - Assessment and Plan Plan: A/P Assessment and Plan ASSESSMENT/PLAN: NEURO: Acute metabolic encephalopathy Multiple scattered embolic strokes, pontine ischemia Probable hypertensive microhemorrhages versus amyloid angiopathy Dementia -MRI Brain 01/17/18: Multiple embolic lacunar infarct involving frontal lobes, right basal ganglia and left temporal occipital lobe. Severe diffuse periventricular and subcortical white matter small vessel ischemic changes. Pontine ischemic changes noted. Probable amyloid angiopathy or hypertensive microhemorrhages, scattered old lacunar infarcts. -Neurology Dr. Hurt, would support transition to comfort if family elects. -Continue aspirin daily, unable to anticoagulate due to anemia requiring transfusion. Continue heparin 5000 units subcu every 12 -Encephalopathy most likely secondary to multiple embolic strokes -CT of the head negative 01/13, EEG no seizures -Not on any sedation -Carotid Doppler no significant stenosis RESP: Acute hypoxemic respiratory failure HCAP/ESBL E Coli -Emergently intubated and placed on mechanical ventilation 01/14. VENT DAY 9 -Daily spontaneous breathing trials but mental status will not permit extubation -DuoNeb every 6 hours scheduled and as needed -See ID for ABX -Palliative care discussed with family regarding tracheostomy and PEG tube. It appears they do not want trach and PEG. They are needing more time but are discussing transition to comfort measures. CV: Nonsustained ventricular tachycardia Hypertension -Metoprolol IV as needed for PVCs/nonsustained V. tach -Serial cardiac enzymes. Prev Echo 2017, preserved LV ejection fraction, moderate LVH -Continue carvedilol 6.25 bid, continue procardia 30 q8h. GI: -Continue tube feeds to Suplena at 40 mL/h per nutrition recommendations. -IV famotidine for GI prophylaxis : Acute on chronic kidney disease -Monitor renal function closely. French catheter. Nephrology following Dr. Sanchez Agree with nephrology, patient is a poor candidate for hemodialysis. ID: Severe sepsis Healthcare associated pneumonia /ESBL E. coli on culture 01/14 -On ertapenem renally dosed since 01/17 #6. -ESBL isolation HEME: Anemia requiring transfusion -Monitor CBC, CMP, coags MSK: Right hip fracture status post hemiarthroplasty -Post op management per Ortho. PT ENDO: -Watch closely for hyperkalemia -Careful electrolyte replacement PROPH: -Bilateral lower extremity SCDs. Sq Heparin 5000 sq q12. IV famotidine 20 mg every 12 LINES: -Utilize peripheral IVs, CODE STATUS changed to DO NOT RESUSCITATE. I reached out to Carmen who is healthcare proxy. She states no further questions at this time. Discussed with Brody Level 2 follow-up
[2018-01-23] MEDS: Oral Hygiene Kit OROPHARYNG SCH ×5 (00:29→23:48)
[2018-01-23] MEDS: Famotidine PF Inj 20 MG/2 ML Vial IV.PUSH SCH ×2 (05:57→18:16)
[2018-01-23] MEDS: NIFEdipine 10 MG Capsule NG/OG SCH ×3 (05:58→21:07)
--- NOTE | 2018-01-23 07:25 | P.PNOP ---
Subjective Interval history: POD 13 s/p right hip hemiarthroplasty patient sedated and intubated. Physical Exam Vital signs: Vital Signs 01/22/18 08:00 01/22/18 09:44 01/22/18 09:46 Temperature 97.9 F Pulse Rate 65 70 Respiratory Rate 14 14 14 Blood Pressure 125/75 Pulse Oximetry 99 97 01/22/18 10:00 01/22/18 12:00 01/22/18 14:00 Temperature 97.2 F L Pulse Rate 65 68 68 Respiratory Rate 14 Blood Pressure 137/77 Pulse Oximetry 97 01/22/18 16:00 01/22/18 16:45 01/22/18 18:00 Temperature 97.5 F L Pulse Rate 62 67 71 Respiratory Rate 14 14 Blood Pressure 149/78 H Pulse Oximetry 97 98 01/22/18 20:00 01/22/18 21:13 01/22/18 22:00 Temperature 97.9 F Pulse Rate 78 78 Respiratory Rate 15 14 Blood Pressure 149/83 H Pulse Oximetry 98 98 01/23/18 00:00 01/23/18 00:49 01/23/18 02:00 Temperature 98.4 F Pulse Rate 67 70 Respiratory Rate 15 14 Blood Pressure 125/60 Pulse Oximetry 97 01/23/18 04:00 01/23/18 04:31 01/23/18 06:00 Temperature 98.2 F Pulse Rate 66 69 Respiratory Rate 14 14 Blood Pressure 128/72 Pulse Oximetry 98 98 Intake & Output 01/22/18 01/23/18 01/23/18 18:59 06:59 18:59 Intake Total 731 / 731 500 / 500 Output Total 525 / 525 550 / 550 Balance 206 / 206 -50 / -50 Weight 80.1 kg Intake: IV 50 / 50 INVanz Inj 500 MG In NS Inj 50 50 / 50 ML @ 100 mls/hr IV.SIG Q24H [facility] Rx#:[id number] Tube Feeding 481 / 481 380 / 380 Tube Irrigant 200 / 200 Water Bolus Amount 120 / 120 Output: Urine Amount (Catheter) 525 / 525 550 / 550 Indwelling Urethral Catheter 525 / 525 550 / 550 Other: Date of Last Bowel Movement 01/22/18 01/23/18 # Bowel Movements 2 1 Narrative: RLE: incision clean and dry. healed well. no erythema or drainage. no dressing in place - Urinary Catheter Management Indwelling Urethral Catheter Cath placed during this visit: yes Urethral indwelling: Yes Reason for continuing: Acute urinary retention Insertion date: 01/10/18 Insertion time: 12:17 Results - Labs CBC & Chem 7: 01/21/18 13:45 01/22/18 05:40 Laboratory Results - last 24 hr 01/22/18 06:30 Stl C.difficile Tox PCR Negative St C. diff Tox Epid 027 Negative Assessment and Plan - Assessment and Plan 1) Right Hip Hemiarthroplasty - POD 13 -WBAT -incision open to air. -posterior hip precautions -CM for DC planning -palliative care -will order xrays today of hip
[2018-01-23] MEDS: Heparin - SQ 10,000 UNITS/ML Vial SQ SCH ×2 (08:13→20:32)
[2018-01-23] MEDS: Carvedilol 6.25 MG Tablet NG/OG SCH ×2 (08:13→20:31)
[2018-01-23] MEDS: Ferrrous Sulfate 300 MG/5 ML UDC NG/OG SCH ×2 (08:13→20:31)
--- NOTE | 2018-01-23 08:22 | P.PNCC ---
Subjective Subjective Remarks/Hospital Course: Patient is a 72-year-old female with history of chronic kidney disease, dementia , hepatitis C, hypertension, monoclonal gammopathy who was admitted to the hospitalist service after she sustained right femoral neck fracture from a fall , she underwent right hip hemiarthroplasty 01/10/18. Patient has stage IV kidney disease and was admitted with BUN 78 creatinine of 4. Patient had been declining since admission was lethargic since yesterday. A CT of the head was negative. Became more unresponsive and unarousable since today afternoon. BUN/ creatinine today 104/5.74. Due to worsening mental status she was brought to the ICU and critical care medicine was consulted. Palliative care was consulted due to advanced dementia is worsening chronic kidney disease and encephalopathy but family wants aggressive care. I evaluated the patient in the ICU, patient is completely unresponsive, not waking up to painful stimuli. Gurgling breath sounds not protecting airway. Emergently intubated and placed on mechanical ventilation. Suctioned out large amount of moderate white to yellow thick secretions from the glottic opening. Patient probably has pneumonia based on secretions and bilateral alveolar infiltrates on chest x- ray. Worsening mental status most likely secondary to metabolic encephalopathy , antibiotics broadened to Zosyn and vancomycin. SUBJ 01/15: Remains intubated critically ill. BUN/creatinine remains elevated at 109/5.7. Chest x-ray shows persistent bilateral left more than right infiltrates. Patient remains encephalopathy go for sedation. Multiple nonsustained episodes of ventricular tachycardia. Had extensive discussion with daughter at the bedside and son over the phone. I encouraged him to consider DNR status given patient's dementia, worsening renal failure, cardiac dysrhythmias and sepsis now 01/16: Patient remains intubated off sedation for 24 hours. Remains unresponsive very slight withdrawal to pain. Sputum culture growing GNR. BUN creatinine slightly improved 97/5.43. Urine output approximately 800 mL in 24 hours. Hb 6.8, 1U PRBC ordered. Updated son at bedside 01/17: Remains severely encephalopathic. MRI brain yesterday shows multiple embolic lacunar infarct involving frontal lobes, right basal ganglia and left temporal occipital lobe. Severe diffuse periventricular and subcortical white matter small vessel ischemic changes are again noted. Pontine ischemic changes are also noted. Also diffuse probable amyloid angiopathy or hypertensive microhemorrhages, scattered old lacunar infarcts. Neurology had been consulted. Sputum culture growing ESBL E. coli Zosyn DC'd and ertapenem started 630: Remains severely encephalopathy. Continues to have no spontaneous eye opening. Renal function worsening. BUN/cr 111/5.7. Urine output 1 L in 24 hours 01/19: Remains intubated off all sedation no improvement in neuro status intermittently moves extremities spontaneously. Did not follow commands. Diminishing urine output 500 mL in 24 hours 01/20: No change in clinical condition remains unresponsive very weak withdrawal to pain. Urine output 750 mL in 24 hours, no acute indication for hemodialysis. 01/[address] [facility] palliative care met with family today and they elected to change CODE STATUS to DO NOT RESUSCITATE. They indicated they would not want trach and PEG , needing time to discuss. I reached out to Carmen and she says she has no further questions at this time. Subjective: 01/22 No neuro change. Family indicates no trach/peg. Awaiting decision regarding withdrawal 01/23: Remains encephalopathic, orally intubated on mechanical ventilation. Not requiring any sedation. Tolerating tube feeds. Objective Vital Signs / I&O: Vital Signs 01/22/18 09:44 01/22/18 09:46 01/22/18 10:00 Temperature Pulse Rate 70 65 Respiratory Rate 14 14 Blood Pressure Pulse Oximetry 97 01/22/18 12:00 01/22/18 14:00 01/22/18 16:00 Temperature 97.2 F L 97.5 F L Pulse Rate 68 68 62 Respiratory Rate 14 14 Blood Pressure 137/77 149/78 H Pulse Oximetry 97 97 01/22/18 16:45 01/22/18 18:00 01/22/18 20:00 Temperature 97.9 F Pulse Rate 67 71 78 Respiratory Rate 14 15 Blood Pressure 149/83 H Pulse Oximetry 98 98 01/22/18 21:13 01/22/18 22:00 01/23/18 00:00 Temperature 98.4 F Pulse Rate 78 67 Respiratory Rate 14 15 Blood Pressure 125/60 Pulse Oximetry 98 01/23/18 00:49 01/23/18 02:00 01/23/18 04:00 Temperature 98.2 F Pulse Rate 70 66 Respiratory Rate 14 14 Blood Pressure 128/72 Pulse Oximetry 97 98 01/23/18 04:31 01/23/18 06:00 Temperature Pulse Rate 69 Respiratory Rate 14 Blood Pressure Pulse Oximetry 98 Intake & Output 01/22/18 01/23/18 01/23/18 18:59 06:59 18:59 Intake Total 731 / 731 500 / 500 Output Total 525 / 525 550 / 550 Balance 206 / 206 -50 / -50 Weight 80.1 kg Intake: IV 50 / 50 INVanz Inj 500 MG In NS Inj 50 50 / 50 ML @ 100 mls/hr IV.SIG Q24H SOPHIE Rx#:[id number] Tube Feeding 481 / 481 380 / 380 Tube Irrigant 200 / 200 Water Bolus Amount 120 / 120 Output: Urine Amount (Catheter) 525 / 525 550 / 550 Indwelling Urethral Catheter 525 / 525 550 / 550 Other: Date of Last Bowel Movement 01/22/18 01/23/18 # Bowel Movements 2 1 Result Diagrams: 01/21/18 13:45 01/22/18 05:40 Objective Remarks: GENERAL: -English female lying in bed, off all sedation, remains encephalopathic SKIN: No rashes, ecchymoses or lesions. HEAD: Atraumatic. Normocephalic. EYES: Pupils equal round. No spontaneous eye opening ENT: Nose without bleeding, Edentulous. Orotracheally intubated, tongue protruding. NECK: Trachea midline. No JVD or lymphadenopathy. CARDIOVASCULAR: S1 S2 normal rhythm without murmurs, gallops, or rubs. RESPIRATORY: Diminished breath sounds with coarse rhonchi bilaterally. GASTROINTESTINAL: Abdomen soft, nondistended. Nontender MUSCULOSKELETAL: Knee immobilizer in place right knee. NEUROLOGICAL: Patient remains unresponsive off sedation, R gaze preference with horizontal nystagmus. Slight withdrawal of extremities noted with painful stimuli, no eye opening. Assessment and Plan - Assessment and Plan Plan: A/P Assessment and Plan ASSESSMENT/PLAN: NEURO: Acute metabolic encephalopathy Multiple scattered embolic strokes, pontine ischemia Probable hypertensive microhemorrhages versus amyloid angiopathy Dementia -MRI Brain 01/17/18: Multiple embolic lacunar infarct involving frontal lobes, right basal ganglia and left temporal occipital lobe. Severe diffuse periventricular and subcortical white matter small vessel ischemic changes. Pontine ischemic changes noted. Probable amyloid angiopathy or hypertensive microhemorrhages, scattered old lacunar infarcts. -Neurology Dr. Hurt, would support transition to comfort if family elects. -Continue aspirin daily, unable to anticoagulate due to anemia requiring transfusion. Continue heparin 5000 units subcu every 12 -Encephalopathy most likely secondary to multiple embolic strokes -CT of the head negative 01/13, EEG no seizures -Not on any sedation -Carotid Doppler no significant stenosis RESP: Acute hypoxemic respiratory failure HCAP/ESBL E Coli -Emergently intubated and placed on mechanical ventilation 01/14. VENT DAY 9 -Daily spontaneous breathing trials but mental status will not permit extubation -DuoNeb every 6 hours scheduled and as needed -See ID for ABX -Palliative care discussed with family regarding tracheostomy and PEG tube. It appears they do not want trach and PEG. They are needing more time but are discussing transition to comfort measures. CV: Nonsustained ventricular tachycardia Hypertension -Metoprolol IV as needed for PVCs/nonsustained V. tach -Serial cardiac enzymes. Prev Echo 2016, preserved LV ejection fraction, moderate LVH -Continue carvedilol 6.25 bid, continue procardia 30 q8h. GI: -Continue tube feeds to Suplena at 40 mL/h per nutrition recommendations. -IV famotidine for GI prophylaxis : Acute on chronic kidney disease -Monitor renal function closely. French catheter. Nephrology following Dr. Sanchez Agree with nephrology, patient is a poor candidate for hemodialysis. ID: Severe sepsis Healthcare associated pneumonia /ESBL E. coli on culture 01/14 -On ertapenem renally dosed since 01/17. -ESBL isolation HEME: Anemia requiring transfusion -Monitor CBC, CMP, coags MSK: Right hip fracture status post hemiarthroplasty -Post op management per Ortho. PT ENDO: -Watch closely for hyperkalemia -Careful electrolyte replacement PROPH: -Bilateral lower extremity SCDs. Sq Heparin 5000 sq q12. IV famotidine 20 mg every 12 LINES: -Utilize peripheral IVs, CODE STATUS changed to DO NOT RESUSCITATE. Dr. Cyr reached out to Carmen who is healthcare proxy on 01/22. She states no further questions at this time. Discussed with [facility] Level 2 follow-up
[2018-01-23] MEDS: ERTAPENEM IV.SIG SCH (09:29)
[2018-01-23] MEDS: SODIUM CHLOR 0.9% IV.SIG SCH (09:29)
[2018-01-23 12:12] LABS: Hematocrit 25.4 % (35.0-46.0); Hemoglobin 8.2 gm/dL (11.6-15.3); Mean Corpuscular HGB Conc 32.3 % (32.0-36.0); Mean Corpuscular Hemoglobin 28.3 pg (27.0-34.0); Mean Corpuscular Volume 87.5 fL (80.0-100.0); Mean Platelet Volume 8.9 fL (7.0-11.0); Platelet Count 301 th/mm3 (150-450); Red Cell Distribution Width 16.2 % (11.6-17.2); White Blood Count 8.6 th/mm3 (4.0-11.0)
[2018-01-23 12:30] LABS: Calcium 8.9 mg/dL (8.5-10.1); Carbon Dioxide 22.4 meq/L (21.0-32.0); Potassium 4.2 meq/L (3.5-5.1)
--- NOTE | 2018-01-23 12:44 | P.PNPAL ---
Reason for Visit Reason for visit: a. To assist with evaluation and management of symptoms including: Shortness of breath, pain, debility b. To assist medical decision maker(s) with: better understanding of current medical conditions; weighing benefits/burdens of medical treatment options; making medical treatment decisions. Subjective Subjective/Interval History: Follow-up medically necessary for symptom management and further clarification of goals of care. Patient remains intubated and unresponsive. Laboratory workup today revealing WBC 8.6, hemoglobin 8.2, hematocrit 25.4, potassium 4.2, BUN/creatinine 124/5.48, random glucose 126, calcium 8.9. Hip x- ray today revealed good position and alignment on postoperative study. Patient seen and examined in the room in the presence of his daughter Carmen. Discussed at length with patient's daughter Carmen. Expressed concern that patient is persistently unresponsive and her kidney function is not improving. Carmen reiterated that she does not want patient to have a tracheostomy or PEG tube and her family is supportive of that. Patient's daughter inquiring how long patient can have endotracheal tube in. Explained to her that patient has had endotracheal tube for 9 days and in most cases due to patient not showing any signs of improvement in her cognition or responsiveness she would have had a tracheostomy placed by now. Discussed more regarding option of compassionately withdrawing patient from life support if family no longer wants aggressive treatment and transitioning patient to comfort care only through hospice services. Carmen is in favor of transitioning patient to comfort care only with hospice services but would like discuss more with her family before proceeding with that decision. Case discussed with bedside RN and Dr. Lopez Family/Friend Interactions: Discussed with patient`s daughter Carmen at bedside. Advance Directives Living Will: Never completed Health Care Surrogate: Never completed Durable Power of Car Wash Attendant Automatic: Never completed Health Care Surrogate [facility] [phone] Objective Vital Signs: Vital Signs 01/22/18 14:00 01/22/18 16:00 01/22/18 16:45 Temperature 97.5 F L Pulse Rate 68 62 67 Respiratory Rate 14 14 Blood Pressure 149/78 H Pulse Oximetry 97 98 01/22/18 18:00 01/22/18 20:00 01/22/18 21:13 Temperature 97.9 F Pulse Rate 71 78 Respiratory Rate 15 14 Blood Pressure 149/83 H Pulse Oximetry 98 98 01/22/18 22:00 01/23/18 00:00 01/23/18 00:49 Temperature 98.4 F Pulse Rate 78 67 Respiratory Rate 15 14 Blood Pressure 125/60 Pulse Oximetry 97 01/23/18 02:00 01/23/18 04:00 01/23/18 04:31 Temperature 98.2 F Pulse Rate 70 66 Respiratory Rate 14 14 Blood Pressure 128/72 Pulse Oximetry 98 98 01/23/18 06:00 01/23/18 08:00 01/23/18 10:00 Temperature 98.0 F Pulse Rate 69 64 70 Respiratory Rate 15 Blood Pressure 132/66 Pulse Oximetry 96 01/23/18 10:11 01/23/18 12:00 Temperature 98.2 F Pulse Rate 72 Respiratory Rate 15 14 Blood Pressure 123/72 Pulse Oximetry 100 Intake & Output 01/22/18 01/23/18 01/23/18 18:59 06:59 18:59 Intake Total 731 / 731 500 / 500 Output Total 525 / 525 550 / 550 Balance 206 / 206 -50 / -50 Weight 80.1 kg Intake: IV 50 / 50 INVanz Inj 500 MG In NS Inj 50 50 / 50 ML @ 100 mls/hr IV.SIG Q24H SOPHIE Rx#:[id number] Tube Feeding 481 / 481 380 / 380 Tube Irrigant 200 / 200 Water Bolus Amount 120 / 120 Output: Urine Amount (Catheter) 525 / 525 550 / 550 Indwelling Urethral Catheter 525 / 525 550 / 550 Other: Date of Last Bowel Movement 01/22/18 01/23/18 01/23/18 # Bowel Movements 2 1 Physical Exam: Physical Exam CONSTITUTIONAL/GENERAL: This is an elderly patient, remains intubated on mechanical ventilation. TUBES/LINES/DRAINS:NC, PIV, FC, NGT, ETT, bilateral soft restraints SKIN: No jaundice, rashes, or lesions. Ecchymoses on upper extremities. Healing surgical incision to right lateral hip. HEAD: Atraumatic. Normocephalic. EYES: PERRLA. No eye opening. ENT: Nose without bleeding or purulent drainage.NGT with TF Nepro infusing at goal rate CARDIOVASCULAR: S1, S2 normal, gallops, or rubs. No JVD. Peripheral pulses symmetric. RESPIRATORY/CHEST: Symmetric, unlabored respirations. No wheezes, rhonchi. GASTROINTESTINAL: Abdomen soft, non-tender, nondistended. Bowel sounds present. GENITOURINARY: Without palpable bladder distension. French catheter in place. MUSCULOSKELETAL: Extremities without clubbing, cyanosis. Edematous to all 4 extremities NEUROLOGICAL: intubated with no sedation, no eye opening. PSYCHIATRIC: Unable to assess. Diagnostic Tests Laboratory: Laboratory Results - last 72 hr 01/21/18 01/21/18 01/22/18 05:22 13:45 05:40 WBC 8.4 RBC 2.96 L Hgb 8.5 L Hct 25.6 L MCV 86.6 MCH 28.6 MCHC 33.0 RDW 15.7 Plt Count 288 D MPV 8.7 Sodium 134 L 137 Potassium 4.3 4.0 Chloride 97 L 99 Carbon Dioxide 22.5 23.4 Anion Gap 15 15 BUN 115 H 123 H Creatinine 5.33 H 5.67 H Estimated GFR 10 L 9 L Random Glucose 106 123 H Calcium 8.2 L 8.4 L Total Bilirubin 0.2 0.3 AST 48 H 51 H ALT 6 L 8 L Alkaline Phosphatase 79 82 Total Protein 5.9 L 6.2 L Albumin 1.6 L 1.8 L Stl C.difficile Tox PCR St C. diff Tox Epid 027 01/22/18 01/23/18 01/23/18 06:30 10:34 10:34 WBC 8.6 RBC 2.90 L Hgb 8.2 L Hct 25.4 L MCV 87.5 MCH 28.3 MCHC 32.3 RDW 16.2 Plt Count 301 MPV 8.9 Sodium 136 Potassium 4.2 Chloride 98 Carbon Dioxide 22.4 Anion Gap 16 H BUN 124 H Creatinine 5.48 H Estimated GFR 9 L Random Glucose 126 H Calcium 8.9 Total Bilirubin AST ALT Alkaline Phosphatase Total Protein Albumin Stl C.difficile Tox PCR Negative St C. diff Tox Epid 027 Negative Result Diagrams: 01/23/18 10:34 01/23/18 10:34 Imaging: Chest X-Ray 01/21/18 06:00 CONCLUSION: Persistent lobar consolidation left lower lung. Hip X-Ray 01/23/18 00:00 CONCLUSION: Good position and alignment on this postoperative study. Procedures: 01/10/2018-right hip bipolar hemiarthroplasty 01/14/18-Intubation Assessment and Plan - Disease Oriented Problem List (1) Acute hypoxemic respiratory failure (2) Embolic infarction (3) Hypertension (4) Nonsustained ventricular tachycardia (5) Dementia (6) Hip fracture, right (7) History of CVA (cerebrovascular accident) Pertinent Non-Medical Issues: Psychosocial:Patient was raised in [place], [place]. 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 Patient worked 2 jobs at a time most of her life. Patient has been twice. Her first is and she is from her second . Patient has 9 living adult children. Spiritual:Patient is a Gnosticism Legal:Patient never completed advance directives. She is . Ethical issues impacting care:None identified at this time. Important Contacts: Carmen Noel(daughter) [phone] Willing to serve as Health care proxy (Lives with patient) Kunal Pedro(son/eldest) [phone] in [place] Opted out-Currently in town supporting his sister Carmen Noel(son) [phone] -Unreachable-Multiple telephone call attempts Annia Pedro(daughter) - no available phone number lives in [place], [place] Scotty Pedro(son) lives in [place], [place] . No available number Isiah Pedro (son) [phone]-Opted out Tae Noel(daughter) [phone]-Opted out Leti (daughter) [phone] -Opted out Anthony Pedro (son) [phone]-Opted out Prognosis: Ms. Noel is a 68 years old female with past medical history of chronic kidney disease, dementia, hypertension, peripheral vascular disease, history of CVA, hepatitis C and monoclonal gammopathy. Patient was brought to the emergency room by family member on 01/09/18 for further evaluation of pain in his right hip and back following a witnessed mechanical fall. Hip and pelvis x-ray revealed right femoral neck fracture and she underwent right hip bipolar hemiarthroplasty on 01/10/18. Clinical course complicated with lethargy, dysphagia, worsening renal function and inability to participate in physical therapy due to cognitive impairment. Given ongoing multiple comorbidities, patient remains at high risk for further complications, deterioration and decline. Code Status: No Code DNR Plan: PLAN: Legal decision maker:Patient has dementia and is not able to participate in medical decision making and is most likely able to regain that capacity. Patient never completed advance directives. Patient is and has 9 adult children whom according to [place] Statute would serve as her health care proxys. 5 of patient`s children have opted out of decision making and 3 other children were not able to be reached. Patient's daughter Carmen Noel is currently serving as health care proxy at this time. Goals: Aggressive short of no code CODE STATUS: No Code- DNR/DNI Discussed at length with patient's daughter Carmen. Expressed concern that patient is persistently unresponsive and her kidney function is not improving. Carmen reiterated that she does not want patient to have a tracheostomy or PEG tube and her family is supportive of that. Patient's daughter inquiring how long patient can have endotracheal tube in. Explained to her that patient has had endotracheal tube for 9 days and in most cases due to patient not showing any signs of improvement in her cognition or responsiveness she would have had a tracheostomy placed by now. Discussed more regarding option of compassionately withdrawing patient from life support if family no longer wants aggressive treatment and transitioning patient to comfort care only through hospice services. Carmen is in favor of transitioning patient to comfort care only with hospice services but would like discuss more with her family before proceeding with that decision. SYMPTOMS: * Pain: Patient recently had a mechanical fall. Hip and pelvis x-ray revealed right femoral neck fracture and she underwent right hip bipolar hemiarthroplasty. Patient currently has acetaminophen 650 mg every 4 prn. Patient appears not to be in pain. Continue to monitor for pain. * Shortness of breath: Patient was intubated on 01/14/18 had increased lethargy , worsening respiratory failure. Sputum culture collected on 01/14+ for ESBL E. coli. On antibiotics and DuoNeb's every 6 hours ATC and prn. Family does not want to proceed with tracheostomy if patient is not able to be medically extubated. * Debility: Progressive. Patient has history of dementia.Per family patient has been progressively declining in the past few months. Patient recently fell and underwent hip surgery. Physical therapy, speech therapy consulted. Given patient's cognitive limitation and multiple embolic strokes, she most likely will not be able to participate in rehabilitation. Palliative care will continue to follow the patient during hospital course as condition evolves, to assist patient/decision-maker with understanding of their medical conditions, weighing benefits/burdens of treatment options, for clarification of goals of treatment. Additionally will assist with any symptoms of palliative concern Attestation Attestation: To help prompt me to consider important information that might be impacting today's encounter and assessment, information from prior notes written by myself or my colleagues may have been "brought forward" into today's note. My signature on this note, however, is an attestation that I personally performed the exam, history, and/or decision-making noted today, and, unless otherwise indicated, the interactions with patient, family, and staff as well as the review of records all occurred today. I also attest that the listed assessment and stated plan reflect my best clinical judgment today based on the combination of historical information, prior notes, and today's exam/ interactions. When time spent is documented, it refers only to time spent today by the signer, or if indicated, combined time spent today by collaborating physician/nurse practitioner.
--- NOTE | 2018-01-23 14:19 | XR ---
EXAM DATE: 01/23/2018 2:00 PM EDT AGE/SEX: 72 years / Female INDICATIONS: Status post right hip arthroplasty. CLINICAL DATA: This is the patient's subsequent encounter. Patient reports that signs and symptoms h ave been present for 1 month and indicates a pain score of Nonresponsive. MEDICAL/SURGICAL HISTORY: Non-responsive. . Right total hip arthroplasty. COMPARISON: [facility] [place] (AP&LAT 2/3VWS) W AP PELVIS, 01/10/2018. . FINDINGS: Status post placement of a right hip prosthesis. The bony structures are grossly intact. There is goo d alignment and position of the hip prosthesis with bony structures. CONCLUSION: Good position and alignment on this postoperative study. Electronically signed by: Elísa Mares MD 01/23/2018 2:18 PM EDT
--- NOTE | 2018-01-23 15:20 | P.PNNP ---
Subjective Interval history: Intubated. Creatinine at 5.48 and potassium level of 4.8. <KathrynshaynaDesiraeEmani - Last Filed: 01/23/18 15:16> Physical Exam Vital signs: Vital Signs 01/22/18 16:00 01/22/18 16:45 01/22/18 18:00 Temperature 97.5 F L Pulse Rate 62 67 71 Respiratory Rate 14 14 Blood Pressure 149/78 H Pulse Oximetry 97 98 01/22/18 20:00 01/22/18 21:13 01/22/18 22:00 Temperature 97.9 F Pulse Rate 78 78 Respiratory Rate 15 14 Blood Pressure 149/83 H Pulse Oximetry 98 98 01/23/18 00:00 01/23/18 00:49 01/23/18 02:00 Temperature 98.4 F Pulse Rate 67 70 Respiratory Rate 15 14 Blood Pressure 125/60 Pulse Oximetry 97 01/23/18 04:00 01/23/18 04:31 01/23/18 06:00 Temperature 98.2 F Pulse Rate 66 69 Respiratory Rate 14 14 Blood Pressure 128/72 Pulse Oximetry 98 98 01/23/18 08:00 01/23/18 10:00 01/23/18 10:11 Temperature 98.0 F Pulse Rate 64 70 Respiratory Rate 15 15 Blood Pressure 132/66 Pulse Oximetry 96 01/23/18 12:00 01/23/18 14:00 Temperature 98.2 F Pulse Rate 72 76 Respiratory Rate 14 Blood Pressure 123/72 Pulse Oximetry 100 Intake & Output 01/22/18 01/23/18 01/23/18 18:59 06:59 18:59 Intake Total 731 / 731 500 / 500 Output Total 525 / 525 550 / 550 Balance 206 / 206 -50 / -50 Weight 80.1 kg Intake: IV 50 / 50 INVanz Inj 500 MG In NS Inj 50 50 / 50 ML @ 100 mls/hr IV.SIG Q24H [facility] Rx#:[id number] Tube Feeding 481 / 481 380 / 380 Tube Irrigant 200 / 200 Water Bolus Amount 120 / 120 Output: Urine Amount (Catheter) 525 / 525 550 / 550 Indwelling Urethral Catheter 525 / 525 550 / 550 Other: Date of Last Bowel Movement 01/22/18 01/23/18 01/23/18 # Bowel Movements 2 1 - Constitutional no acute distress - Routine HEENT Exam Head: Present: normocephalic ENT: Present: mucous membranes moist - Routine Neck Exam Present: supple. Absent: JVD - Routine Respiratory Exam Present: patient mechanically ventilated, decreased breath sounds, rhonchi - Routine Cardiovascular Exam Present: RRR - Routine Abdominal Exam Present: soft, normoactive bowel sounds - Routine Extremities Exam Present: edema - Routine Skin Exam Present: warm - Routine Neurological Exam Unresponsive - Urinary Catheter Management Indwelling Urethral Catheter Cath placed during this visit: yes Urethral indwelling: Yes Reason for continuing: Other continuation reason Insertion date: 01/10/18 Insertion time: 12:17 <Emani Avery - Last Filed: 01/23/18 15:16> Vital signs: Vital Signs 01/23/18 00:00 01/23/18 00:49 01/23/18 02:00 Temperature 98.4 F Pulse Rate 67 70 Respiratory Rate 15 14 Blood Pressure 125/60 Pulse Oximetry 97 01/23/18 04:00 01/23/18 04:31 01/23/18 06:00 Temperature 98.2 F Pulse Rate 66 69 Respiratory Rate 14 14 Blood Pressure 128/72 Pulse Oximetry 98 98 01/23/18 08:00 01/23/18 10:00 01/23/18 10:11 Temperature 98.0 F Pulse Rate 64 70 Respiratory Rate 15 15 Blood Pressure 132/66 Pulse Oximetry 96 01/23/18 12:00 01/23/18 14:00 01/23/18 16:00 Temperature 98.2 F 97.9 F Pulse Rate 72 76 68 Respiratory Rate 14 14 Blood Pressure 123/72 129/73 Pulse Oximetry 100 100 01/23/18 17:39 01/23/18 18:00 Temperature Pulse Rate 74 Respiratory Rate 14 Blood Pressure Pulse Oximetry 98 Intake & Output 01/23/18 01/23/18 01/24/18 06:59 18:59 06:59 Intake Total 500 / 500 450 / 450 50 / 50 Output Total 550 / 550 900 / 900 Balance -50 / -50 -450 / -450 50 / 50 Weight 80.1 kg Intake: IV 50 / 50 INVanz Inj 500 MG In NS Inj 50 50 / 50 ML @ 100 mls/hr IV.SIG Q24H [facility] Rx#:[id number] Tube Feeding 380 / 380 390 / 390 Tube Irrigant 60 / 60 Water Bolus Amount 120 / 120 Output: Urine 450 / 450 Urine Amount (Catheter) 550 / 550 450 / 450 Indwelling Urethral Catheter 550 / 550 450 / 450 Other: Date of Last Bowel Movement 01/23/18 01/23/18 # Bowel Movements 1 1 - Urinary Catheter Management Indwelling Urethral Catheter Cath placed during this visit: no <Norberto Sanchez - Last Filed: 01/23/18 22:26> Assessment and Plan - Assessment (1) Acute kidney injury Code(s): N17.9 - Acute kidney failure, unspecified Status: Acute Plan: kidney ultrasound showed echogenic kidney. Creatinine at 5.48 and potassium level of 4.8 Urinary output 1075ml/24 hour Patient is a poor candidate for hemodialysis Palliative care meet with family continue aggressive treatment currently Patient has no urgent need for Dialysis. Avoid nephrotoxins Will continue to monitor urinary output and BMP. <Emani Avery - Last Filed: 01/23/18 15:16> - Assessment (1) Acute kidney injury Code(s): N17.9 - Acute kidney failure, unspecified Status: Acute - Attending Attestation Patient seen and examined, agree with above. Creatinine is almost same, K is normal. <Norberto Sanchez - Last Filed: 01/23/18 22:26>
[2018-01-23] MEDS: Chlorhexidine 0.12% Oral Kit 15 ML UDC SWISH-SPIT SCH ×2 (18:14→20:31)
[2018-01-24] MEDS: NIFEdipine 10 MG Capsule NG/OG SCH ×3 (05:21→22:00)
[2018-01-24] MEDS: Famotidine PF Inj 20 MG/2 ML Vial IV.PUSH SCH ×2 (05:21→18:39)
[2018-01-24] MEDS: Oral Hygiene Kit OROPHARYNG SCH ×3 (05:21→18:39)
[2018-01-24] MEDS: Chlorhexidine 0.12% Oral Kit 15 ML UDC SWISH-SPIT SCH ×2 (09:23→20:38)
[2018-01-24] MEDS: SODIUM CHLOR 0.9% IV.SIG SCH (09:32)
[2018-01-24] MEDS: ERTAPENEM IV.SIG SCH (09:32)
[2018-01-24] MEDS: Ferrrous Sulfate 300 MG/5 ML UDC NG/OG SCH ×2 (09:33→20:37)
[2018-01-24] MEDS: Heparin - SQ 10,000 UNITS/ML Vial SQ SCH ×2 (09:33→20:36)
[2018-01-24] MEDS: Carvedilol 6.25 MG Tablet NG/OG SCH ×2 (09:33→20:36)
--- NOTE | 2018-01-24 10:48 | P.PNWCN ---
Wound Care Nurse Consult Description: Received consult from Doctor Rouse for wound management Buttocks and calf areas. Communicated with: ALFONSO Hatch [facility] and Doctor Andre Lopez Recommendation: 1.Please turn patient from R side to L side every 2 hours, limiting time on back for P.T. and meals 2.Cleanse wound to Coccyx with normal saline or wound cleanser and pat dry. 3. Apply Calazime skin protectant paste to periwound circumferentially in a thin layer. Apply skin barrier film to intact skin before covering with adhesive dressing. 4. Apply Maxorb II just over draining area to wound and cover with Bordered gauze. 5. Change dressing every other day or as needed if saturated or dislodged. 6. Obtain Airapy bed from environmental. 7. Please apply heel raiser boots to patient to offload pressure from bilateral heels. Additional information: Patient seen today for wound management of buttocks, and R calf.Patient is laying in regular hospital bed and is on vent and sedated. Patient was turned with the assistance of Elsy Hatch RN [facility] to L side to reveal open wound to Coccyx. Wound bed presents with peeling skin that is scattered near the edges of wound,~70% pink tissue and ~30% pale yellow tissue. Wound etiology appears mixed with moisture, pressure and friction. Pressure injury to coccyx is a stage 3. Periwound presents with peeling skin. Wound was Cleansed with normal saline. Applied Calazime skin protectant paste to periwound circumferentially in a thin layer. Applied Cavilon skin barrier film spray to intact skin before covering wound with bordered gauze. R posterior leg presents with skin tear that has a dry intact transparent film in place. R heel presents with non blanchable purple discoloration that measures ~4cm x ~ 4cmx intact purple discoloration to intact skin, indicating Deep tissue injury. L heel also presents with non blanchable purple discoloration to intact skin that measures ~1cm x ~1cm x intact purple discoloration to intact skin, indicating Deep Tissue injury. DTIs were left open to air and Cavilon skin barrier film was applied. Wound/Pressure Injury - Wound Right Lower Posterior Leg Wound Assessment: Ongoing Wound Type: Skin Tear Is This a Chronic Wound: No Wound Bed Appearance: Red Wound Bed Appearance: Wound to R calf is covered with transparent dressing and is dry and intact. 100 % red non granulation tissue is visible. Dressing Status: Dry & Intact Primary Dressing: Transparent Left Heel Wound Staging: DTI Wound Assessment: Ongoing Wound Type: Pressure Injury Is This a Chronic Wound: No Requested from Provider a Wound Care Consult: Yes (Wound care saw today and is following) Length: 1 (~1 cm) Width: 1 (~ 1cm) Wound Bed Appearance: 100% intact non blanchable purple discoloration. Surrounding Tissue Temperature: Warm Drainage Amount: None Dressing Status: Open to Air Topical: Cavilon skin barrier film applied Right Heel Wound Staging: DTI Wound Assessment: Ongoing Wound Type: Pressure Injury Is This a Chronic Wound: No Requested from Provider a Wound Care Consult: Yes (Wound care saw today and is following) Length: 4 (~4 cm) Width: 4 (~4 cm) Wound Bed Appearance: 100% purple non blanchable discoloration to intact skin Surrounding Tissue Temperature: Warm Drainage Amount: None Dressing Status: Open to Air Topical: Cavilon skin protectant spray Coccyx Wound Staging: Stage III Wound Assessment: Ongoing Wound Type: Pressure Injury Is This a Chronic Wound: No Requested from Provider a Wound Care Consult: Yes (Wound care saw today and is following) Length: 7.6 (cm) Width: 6.3 (cm) Depth: 0.1 (~0.1cm) Wound Bed Appearance: Wound bed presents with peeling skin, ~70% pink tissue and ~30% adipose tissue. Surrounding Tissue Temperature: Warm Drainage Description: Serosanguinous Drainage Amount: Minimal Drainage Odor: No Odor Dressing Status: Changed Cleansing Solution: Saline Primary Dressing: bordered gauze Wound Dressing Change Date: 01/24/18 Incision - Incision Right Thigh Incision Type: Incision
--- NOTE | 2018-01-24 11:12 | P.PNCC ---
Subjective Subjective Remarks/Hospital Course: Patient is a 72-year-old female with history of chronic kidney disease, dementia , hepatitis C, hypertension, monoclonal gammopathy who was admitted to the hospitalist service after she sustained right femoral neck fracture from a fall , she underwent right hip hemiarthroplasty 01/10/18. Patient has stage IV kidney disease and was admitted with BUN 78 creatinine of 4. Patient had been declining since admission was lethargic since yesterday. A CT of the head was negative. Became more unresponsive and unarousable since today afternoon. BUN/ creatinine today 104/5.74. Due to worsening mental status she was brought to the ICU and critical care medicine was consulted. Palliative care was consulted due to advanced dementia is worsening chronic kidney disease and encephalopathy but family wants aggressive care. I evaluated the patient in the ICU, patient is completely unresponsive, not waking up to painful stimuli. Gurgling breath sounds not protecting airway. Emergently intubated and placed on mechanical ventilation. Suctioned out large amount of moderate white to yellow thick secretions from the glottic opening. Patient probably has pneumonia based on secretions and bilateral alveolar infiltrates on chest x- ray. Worsening mental status most likely secondary to metabolic encephalopathy , antibiotics broadened to Zosyn and vancomycin. SUBJ 01/15: Remains intubated critically ill. BUN/creatinine remains elevated at 109/5.7. Chest x-ray shows persistent bilateral left more than right infiltrates. Patient remains encephalopathy go for sedation. Multiple nonsustained episodes of ventricular tachycardia. Had extensive discussion with daughter at the bedside and son over the phone. I encouraged him to consider DNR status given patient's dementia, worsening renal failure, cardiac dysrhythmias and sepsis now 01/16: Patient remains intubated off sedation for 24 hours. Remains unresponsive very slight withdrawal to pain. Sputum culture growing GNR. BUN creatinine slightly improved 97/5.43. Urine output approximately 800 mL in 24 hours. Hb 6.8, 1U PRBC ordered. Updated son at bedside 01/17: Remains severely encephalopathic. MRI brain yesterday shows multiple embolic lacunar infarct involving frontal lobes, right basal ganglia and left temporal occipital lobe. Severe diffuse periventricular and subcortical white matter small vessel ischemic changes are again noted. Pontine ischemic changes are also noted. Also diffuse probable amyloid angiopathy or hypertensive microhemorrhages, scattered old lacunar infarcts. Neurology had been consulted. Sputum culture growing ESBL E. coli Zosyn DC'd and ertapenem started 630: Remains severely encephalopathy. Continues to have no spontaneous eye opening. Renal function worsening. BUN/cr 111/5.7. Urine output 1 L in 24 hours 01/19: Remains intubated off all sedation no improvement in neuro status intermittently moves extremities spontaneously. Did not follow commands. Diminishing urine output 500 mL in 24 hours 01/20: No change in clinical condition remains unresponsive very weak withdrawal to pain. Urine output 750 mL in 24 hours, no acute indication for hemodialysis. 01/21 [facility] palliative care met with family today and they elected to change CODE STATUS to DO NOT RESUSCITATE. They indicated they would not want trach and PEG , needing time to discuss. I reached out to Carmen and she says she has no further questions at this time. Subjective: 01/22 No neuro change. Family indicates no trach/peg. Awaiting decision regarding withdrawal 01/23: Remains encephalopathic, orally intubated on mechanical ventilation. Not requiring any sedation. Tolerating tube feeds. 01/24: Remains encephalopathic, orally intubated on mechanical ventilation. Tolerating tube feeds. Family deciding regarding goals of therapy and possible de-escalation of therapy. Objective Vital Signs / I&O: Vital Signs 01/23/18 12:00 01/23/18 14:00 01/23/18 16:00 Temperature 98.2 F 97.9 F Pulse Rate 72 76 68 Respiratory Rate 14 14 Blood Pressure 123/72 129/73 Pulse Oximetry 100 100 01/23/18 17:39 01/23/18 18:00 01/23/18 20:00 Temperature Pulse Rate 74 Respiratory Rate 14 14 Blood Pressure 147/87 H Pulse Oximetry 98 100 01/23/18 22:00 01/24/18 00:00 01/24/18 02:00 Temperature 98.2 F Pulse Rate 68 73 78 Respiratory Rate 14 Blood Pressure 131/75 Pulse Oximetry 97 01/24/18 04:00 01/24/18 06:00 01/24/18 07:55 Temperature 98.6 F Pulse Rate 74 69 Respiratory Rate 14 12 Blood Pressure 135/77 Pulse Oximetry 99 96 Intake & Output 01/23/18 01/24/18 01/24/18 18:59 06:59 18:59 Intake Total 450 / 450 659 / 659 50 / 50 Output Total 900 / 900 500 / 500 Balance -450 / -450 159 / 159 50 / 50 Weight 80.1 kg Intake: IV 50 / 50 50 / 50 INVanz Inj 500 MG In NS Inj 50 50 / 50 50 / 50 ML @ 100 mls/hr IV.SIG Q24H [facility] Rx#:[id number] Tube Feeding 390 / 390 Tube Irrigant 60 / 60 150 / 150 Water Bolus Amount 459 / 459 Output: Urine 450 / 450 Urine Amount (Catheter) 450 / 450 500 / 500 Indwelling Urethral Catheter 450 / 450 500 / 500 Other: Date of Last Bowel Movement 01/23/18 01/23/18 # Bowel Movements 1 Result Diagrams: 01/23/18 10:34 01/23/18 10:34 Objective Remarks: GENERAL: -Citizen Of [place] female lying in bed, off all sedation, remains encephalopathic SKIN: No rashes, ecchymoses or lesions. HEAD: Atraumatic. Normocephalic. EYES: Pupils equal round. No spontaneous eye opening ENT: Nose without bleeding, Edentulous. Orotracheally intubated, tongue protruding. NECK: Trachea midline. No JVD or lymphadenopathy. CARDIOVASCULAR: S1 S2 normal rhythm without murmurs, gallops, or rubs. RESPIRATORY: Diminished breath sounds with coarse rhonchi bilaterally. GASTROINTESTINAL: Abdomen soft, nondistended. Nontender MUSCULOSKELETAL: Knee immobilizer in place right knee. NEUROLOGICAL: Patient remains unresponsive off sedation, R gaze preference with horizontal nystagmus. Slight withdrawal of extremities noted with painful stimuli, no eye opening. Assessment and Plan - Assessment and Plan Plan: A/P Assessment and Plan ASSESSMENT/PLAN: NEURO: Acute metabolic encephalopathy Multiple scattered embolic strokes, pontine ischemia Probable hypertensive microhemorrhages versus amyloid angiopathy Dementia -MRI Brain 01/17/18: Multiple embolic lacunar infarct involving frontal lobes, right basal ganglia and left temporal occipital lobe. Severe diffuse periventricular and subcortical white matter small vessel ischemic changes. Pontine ischemic changes noted. Probable amyloid angiopathy or hypertensive microhemorrhages, scattered old lacunar infarcts. -Neurology Dr. Hurt, would support transition to comfort if family elects. -Continue aspirin daily, unable to anticoagulate due to anemia requiring transfusion. Continue heparin 5000 units subcu every 12 -Encephalopathy most likely secondary to multiple embolic strokes -CT of the head negative 01/13, EEG no seizures -Not on any sedation -Carotid Doppler no significant stenosis RESP: Acute hypoxemic respiratory failure HCAP/ESBL E Coli -Emergently intubated and placed on mechanical ventilation 01/14. VENT DAY 9 -Daily spontaneous breathing trials but mental status will not permit extubation -DuoNeb every 6 hours scheduled and as needed -See ID for ABX -Palliative care discussed with family regarding tracheostomy and PEG tube. It appears they do not want trach and PEG. They are needing more time but are discussing transition to comfort measures. CV: Nonsustained ventricular tachycardia Hypertension -Metoprolol IV as needed for PVCs/nonsustained V. tach -Serial cardiac enzymes. Prev Echo 2017, preserved LV ejection fraction, moderate LVH -Continue carvedilol 6.25 bid, continue procardia 30 q8h. GI: -Continue tube feeds to Suplena at 40 mL/h per nutrition recommendations. -IV famotidine for GI prophylaxis : Acute on chronic kidney disease -Monitor renal function closely. French catheter. Nephrology following Dr. Sanchez Agree with nephrology, patient is a poor candidate for hemodialysis. ID: Severe sepsis Healthcare associated pneumonia /ESBL E. coli on culture 01/14 -On ertapenem renally dosed since 01/17. -ESBL isolation HEME: Anemia requiring transfusion -Monitor CBC, CMP, coags MSK: Right hip fracture status post hemiarthroplasty -Post op management per Ortho. PT ENDO: -Watch closely for hyperkalemia -Careful electrolyte replacement PROPH: -Bilateral lower extremity SCDs. Sq Heparin 5000 sq q12. IV famotidine 20 mg every 12 LINES: -Utilize peripheral IVs, CODE STATUS changed to DO NOT RESUSCITATE. Dr. Cyr reached out to Carmen who is healthcare proxy on 01/22. She states no further questions at this time. Palliative care and discussion with family regarding goals of therapy. Possible de-escalation of therapy as family does not want tracheostomy and PEG tube. Discussed with Rudo Level 2 follow-up
--- NOTE | 2018-01-24 12:29 | P.PNNP ---
Subjective Interval history: Intubated, on mechanical ventilation. UOP at 950/24 hours. No new labs <Emani Avery - Last Filed: 01/24/18 12:23> Physical Exam Vital signs: Vital Signs 01/23/18 14:00 01/23/18 16:00 01/23/18 17:39 Temperature 97.9 F Pulse Rate 76 68 Respiratory Rate 14 14 Blood Pressure 129/73 Pulse Oximetry 100 98 01/23/18 18:00 01/23/18 20:00 01/23/18 22:00 Temperature Pulse Rate 74 68 Respiratory Rate 14 Blood Pressure 147/87 H Pulse Oximetry 100 01/24/18 00:00 01/24/18 02:00 01/24/18 04:00 Temperature 98.2 F 98.6 F Pulse Rate 73 78 74 Respiratory Rate 14 14 Blood Pressure 131/75 135/77 Pulse Oximetry 97 99 01/24/18 06:00 01/24/18 07:55 01/24/18 08:00 Temperature Pulse Rate 69 77 Respiratory Rate 12 Blood Pressure Pulse Oximetry 96 01/24/18 10:00 01/24/18 11:56 Temperature Pulse Rate 79 Respiratory Rate 12 Blood Pressure Pulse Oximetry Intake & Output 01/23/18 01/24/18 01/24/18 18:59 06:59 18:59 Intake Total 450 / 450 659 / 659 50 / 50 Output Total 900 / 900 500 / 500 Balance -450 / -450 159 / 159 50 / 50 Weight 80.1 kg Intake: IV 50 / 50 50 / 50 INVanz Inj 500 MG In NS Inj 50 50 / 50 50 / 50 ML @ 100 mls/hr IV.SIG Q24H [facility] Rx#:[id number] Tube Feeding 390 / 390 Tube Irrigant 60 / 60 150 / 150 Water Bolus Amount 459 / 459 Output: Urine 450 / 450 Urine Amount (Catheter) 450 / 450 500 / 500 Indwelling Urethral Catheter 450 / 450 500 / 500 Other: Date of Last Bowel Movement 01/23/18 01/23/18 01/24/18 # Bowel Movements 1 - Constitutional no acute distress - Routine HEENT Exam Head: Present: normocephalic ENT: Present: mucous membranes dry - Routine Neck Exam Present: supple. Absent: JVD - Routine Respiratory Exam Present: patient mechanically ventilated, rhonchi. Absent: rales, wheezes - Routine Cardiovascular Exam Present: RRR. Absent: murmur - Routine Abdominal Exam Present: soft, normoactive bowel sounds - Routine Skin Exam Present: warm - Urinary Catheter Management Indwelling Urethral Catheter Cath placed during this visit: yes Urethral indwelling: Yes Reason for continuing: Other continuation reason Insertion date: 01/10/18 Insertion time: 12:17 <Emani Avery - Last Filed: 01/24/18 12:23> Vital signs: Vital Signs 01/24/18 00:00 01/24/18 02:00 01/24/18 04:00 Temperature 98.2 F 98.6 F Pulse Rate 73 78 74 Respiratory Rate 14 14 Blood Pressure 131/75 135/77 Pulse Oximetry 97 99 01/24/18 06:00 01/24/18 07:55 01/24/18 08:00 Temperature 98.9 F Pulse Rate 69 76 Respiratory Rate 12 13 Blood Pressure 128/68 Pulse Oximetry 96 96 01/24/18 10:00 01/24/18 11:56 01/24/18 12:00 Temperature 98.8 F Pulse Rate 79 79 Respiratory Rate 12 13 Blood Pressure 127/71 Pulse Oximetry 99 01/24/18 14:00 01/24/18 15:26 01/24/18 16:00 Temperature 98.3 F Pulse Rate 78 73 Respiratory Rate 15 14 Blood Pressure 137/80 Pulse Oximetry 99 01/24/18 18:00 01/24/18 19:54 Temperature Pulse Rate 78 Respiratory Rate 19 Blood Pressure Pulse Oximetry 100 Intake & Output 01/24/18 01/24/18 01/25/18 06:59 18:59 06:59 Intake Total 659 / 659 659 / 659 Output Total 500 / 500 550 / 550 Balance 159 / 159 109 / 109 Weight 80.1 kg Intake: IV 50 / 50 50 / 50 INVanz Inj 500 MG In NS Inj 50 50 / 50 50 / 50 ML @ 100 mls/hr IV.SIG Q24H [facility] Rx#:[id number] Tube Feeding 489 / 489 Tube Irrigant 150 / 150 120 / 120 Water Bolus Amount 459 / 459 Output: Urine 550 / 550 Urine Amount (Catheter) 500 / 500 Indwelling Urethral Catheter 500 / 500 Other: Date of Last Bowel Movement 01/23/18 01/23/18 # Bowel Movements 0 - Urinary Catheter Management Indwelling Urethral Catheter Cath placed during this visit: no <Norberto Sanchez - Last Filed: 01/24/18 22:36> Assessment and Plan - Assessment (1) Acute kidney injury Code(s): N17.9 - Acute kidney failure, unspecified Status: Acute Plan: kidney ultrasound showed echogenic kidney. Creatinine at 5.48 and potassium level of 4.8 yesterday Urinary output 950 ml/24 hour Patient is a poor candidate for hemodialysis Avoid nephrotoxins French catheter Will continue to monitor urinary output and BMP. Per notes as no one is present at bedside but family possibly considering de- escalation of therapy. Will order labs in AM <Emani Avery - Last Filed: 01/24/18 12:23> - Assessment (1) Acute kidney injury Code(s): N17.9 - Acute kidney failure, unspecified Status: Acute - Attending Attestation Patient seen and examined, agree with above. Non oliguric, no new BMP today, Palliative care following, not much improvement in the encephalopathy. <Norberto Sanchez - Last Filed: 01/24/18 22:36>
[2018-01-25] MEDS: Oral Hygiene Kit OROPHARYNG SCH ×4 (00:24→16:00)
[2018-01-25] MEDS: Famotidine PF Inj 20 MG/2 ML Vial IV.PUSH SCH (05:06)
[2018-01-25] MEDS: NIFEdipine 10 MG Capsule NG/OG SCH ×3 (05:06→21:06)
[2018-01-25 06:26] LABS: Albumin 1.8 g/dL (3.4-5.0); Calcium 8.4 mg/dL (8.5-10.1); Carbon Dioxide 22.3 meq/L (21.0-32.0); Potassium 4.4 meq/L (3.5-5.1)
[2018-01-25] MEDS: ERTAPENEM IV.SIG SCH (10:00)
[2018-01-25] MEDS: SODIUM CHLOR 0.9% IV.SIG SCH (10:00)
[2018-01-25] MEDS: Carvedilol 6.25 MG Tablet NG/OG SCH ×2 (10:37→21:06)
[2018-01-25] MEDS: Chlorhexidine 0.12% Oral Kit 15 ML UDC SWISH-SPIT SCH ×2 (10:37→21:10)
[2018-01-25] MEDS: Ferrrous Sulfate 300 MG/5 ML UDC NG/OG SCH ×2 (10:38→21:05)
[2018-01-25] MEDS: Heparin - SQ 10,000 UNITS/ML Vial SQ SCH ×2 (10:38→21:05)
[2018-01-25] MEDS ORDERED: Dextrose 50% in Water 50 ML Vial IV.PUSH PRN (11:15)
--- NOTE | 2018-01-25 11:24 | P.PNCC ---
Subjective Subjective Remarks/Hospital Course: Patient is a 72-year-old female with history of chronic kidney disease, dementia , hepatitis C, hypertension, monoclonal gammopathy who was admitted to the hospitalist service after she sustained right femoral neck fracture from a fall , she underwent right hip hemiarthroplasty 01/10/18. Patient has stage IV kidney disease and was admitted with BUN 78 creatinine of 4. Patient had been declining since admission was lethargic since yesterday. A CT of the head was negative. Became more unresponsive and unarousable since today afternoon. BUN/ creatinine today 104/5.74. Due to worsening mental status she was brought to the ICU and critical care medicine was consulted. Palliative care was consulted due to advanced dementia is worsening chronic kidney disease and encephalopathy but family wants aggressive care. I evaluated the patient in the ICU, patient is completely unresponsive, not waking up to painful stimuli. Gurgling breath sounds not protecting airway. Emergently intubated and placed on mechanical ventilation. Suctioned out large amount of moderate white to yellow thick secretions from the glottic opening. Patient probably has pneumonia based on secretions and bilateral alveolar infiltrates on chest x- ray. Worsening mental status most likely secondary to metabolic encephalopathy , antibiotics broadened to Zosyn and vancomycin. 01/15: Remains intubated critically ill. BUN/creatinine remains elevated at 109/ 5.7. Chest x-ray shows persistent bilateral left more than right infiltrates. Patient remains encephalopathy go for sedation. Multiple nonsustained episodes of ventricular tachycardia. Had extensive discussion with daughter at the bedside and son over the phone. I encouraged him to consider DNR status given patient's dementia, worsening renal failure, cardiac dysrhythmias and sepsis now 01/16: Patient remains intubated off sedation for 24 hours. Remains unresponsive very slight withdrawal to pain. Sputum culture growing GNR. BUN creatinine slightly improved 97/5.43. Urine output approximately 800 mL in 24 hours. Hb 6.8, 1U PRBC ordered. Updated son at bedside 01/17: Remains severely encephalopathic. MRI brain yesterday shows multiple embolic lacunar infarct involving frontal lobes, right basal ganglia and left temporal occipital lobe. Severe diffuse periventricular and subcortical white matter small vessel ischemic changes are again noted. Pontine ischemic changes are also noted. Also diffuse probable amyloid angiopathy or hypertensive microhemorrhages, scattered old lacunar infarcts. Neurology had been consulted. Sputum culture growing ESBL E. coli Zosyn DC'd and ertapenem started 630: Remains severely encephalopathy. Continues to have no spontaneous eye opening. Renal function worsening. BUN/cr 111/5.7. Urine output 1 L in 24 hours 01/19: Remains intubated off all sedation no improvement in neuro status intermittently moves extremities spontaneously. Did not follow commands. Diminishing urine output 500 mL in 24 hours 01/20: No change in clinical condition remains unresponsive very weak withdrawal to pain. Urine output 750 mL in 24 hours, no acute indication for hemodialysis. 01/21 [facility] palliative care met with family today and they elected to change CODE STATUS to DO NOT RESUSCITATE. They indicated they would not want trach and PEG , needing time to discuss. I reached out to Carmen and she says she has no further questions at this time. 01/22 No neuro change. Family indicates no trach/peg. Awaiting decision regarding withdrawal 01/23: Remains encephalopathic, orally intubated on mechanical ventilation. Not requiring any sedation. Tolerating tube feeds. 01/24: Remains encephalopathic, orally intubated on mechanical ventilation. Tolerating tube feeds. Family deciding regarding goals of therapy and possible de-escalation of therapy. SUBJECTIVE: 01/25: Afebrile. Gaze to the right. Withdraws to pain 4. Tolerating tube feeds. Positive BM. Objective Vital Signs / I&O: Vital Signs 01/24/18 11:56 01/24/18 12:00 01/24/18 14:00 Temperature 98.8 F Pulse Rate 79 78 Respiratory Rate 12 13 Blood Pressure 127/71 Pulse Oximetry 99 01/24/18 15:26 01/24/18 16:00 01/24/18 18:00 Temperature 98.3 F Pulse Rate 73 78 Respiratory Rate 15 14 Blood Pressure 137/80 Pulse Oximetry 99 01/24/18 19:54 01/24/18 20:00 01/24/18 22:00 Temperature 97.6 F Pulse Rate 81 69 Respiratory Rate 19 21 Blood Pressure 139/77 Pulse Oximetry 100 100 01/25/18 00:00 01/25/18 02:00 01/25/18 02:43 Temperature 97.9 F Pulse Rate 76 79 Respiratory Rate 16 14 Blood Pressure 134/71 Pulse Oximetry 98 01/25/18 04:00 01/25/18 06:00 01/25/18 08:00 Temperature 98.1 F Pulse Rate 76 71 Respiratory Rate 16 14 Blood Pressure 141/76 H Pulse Oximetry 99 100 Intake & Output 01/24/18 01/25/18 01/25/18 18:59 06:59 18:59 Intake Total 659 / 659 491 / 491 Output Total 550 / 550 475 / 475 Balance 109 / 109 16 / 16 Weight 81.4 kg Intake: IV 50 / 50 INVanz Inj 500 MG In NS Inj 50 50 / 50 ML @ 100 mls/hr IV.SIG Q24H SOPHIE Rx#:[id number] Tube Feeding 489 / 489 371 / 371 Tube Irrigant 120 / 120 120 / 120 Output: Urine 550 / 550 475 / 475 Other: Date of Last Bowel Movement 01/23/18 01/24/18 # Bowel Movements 0 0 Result Diagrams: 01/23/18 10:34 01/25/18 05:05 Imaging: ITS Impressions Chest X-Ray 01/21/18 06:00 CONCLUSION: Persistent lobar consolidation left lower lung. Hip X-Ray 01/23/18 00:00 CONCLUSION: Good position and alignment on this postoperative study. Objective Remarks: GENERAL: 72-year-old -[place] female lying in bed, off all sedation, remains encephalopathic SKIN: Coccyx deep tissue injury stage III, bilateral heel ulcerations. HEAD: Atraumatic. Normocephalic. EYES: Pupils equal round. No spontaneous eye opening ENT: Nose without bleeding, Edentulous. Orotracheally intubated, tongue protruding. NECK: Trachea midline. No JVD or lymphadenopathy. CARDIOVASCULAR: S1 S2 normal rhythm without murmurs, gallops, or rubs. RESPIRATORY: Diminished breath sounds with coarse rhonchi bilaterally. GASTROINTESTINAL: Abdomen soft, nondistended. Nontender hypoactive bowel sounds are appreciated. MUSCULOSKELETAL: Postoperative changes noted. No obvious edema or swelling. NEUROLOGICAL: Patient remains unresponsive off sedation, R gaze preference with horizontal nystagmus. Slight withdrawal of upper and lower extremities noted with painful stimuli, no eye opening. Assessment and Plan - Assessment and Plan Plan: NEURO/PSYCH: Acute metabolic encephalopathy Multiple scattered embolic strokes, pontine ischemia Dementia disorder NOS History of prior CVA -MRI Brain 01/17/18: Punctate signal abnormalities throughout the periventricular white matter bilaterally as well as scattered throughout the frontal lobes, right basal ganglia and left temporal occipital lobe on the diffusion-weighted images indicating acute embolic lacunar infarcts. Clinical correlation is recommended. Severe diffuse periventricular and subcortical white matter small vessel ischemic changes are again noted. Pontine ischemic changes are also noted. -Neurology Dr. Hurt, would support transition to comfort if family elects. -Continue aspirin 81 mg daily daily, unable to anticoagulate due to anemia requiring transfusion. -Encephalopathy most likely secondary to multiple embolic strokes -EEG 01/15 revealed weights. Moderate encephalopathy. No epileptic activity. -CT of the head negative 01/13, -Not on any sedation -Carotid Doppler 01/06 revealed no significant stenosis RESP: Acute hypoxemic respiratory failure HCAP/ESBL E Coli -Emergently intubated and placed on mechanical ventilation 01/14. PRVC 15/500/07/29/39 -Daily spontaneous breathing trials but mental status will not permit extubation -Albuterol/ipratropium aerosols every 4 hours with albuterol aerosols every 2 hours as needed for dyspnea -See ID for ABX -Palliative care discussed with family regarding tracheostomy and PEG tube. CV: Nonsustained ventricular tachycardia Essential hypertension -Metoprolol IV as needed for PVCs/nonsustained V. tach -Continue carvedilol 6.25 twice daily, hydralazine 100 mg 3 times daily and nifedipine 30 mg every 8 hours/home medications 2D echocardiogram 01/18 revealed EF 55-60%. Trace AR/MR/TR. GI: Hypoalbuminemia -Continue tube feeds to Suplena at 40 mL/h per nutrition recommendations. -Lansoprazole for GI prophylaxis -Docusate sodium 100 mg twice daily for bowel regimen Renal/FEN/: Acute on chronic kidney disease Hyperphosphatemia -Monitor renal function closely. French catheter. Nephrology following Dr. Sanchez Agree with nephrology, patient is a poor candidate for hemodialysis. Initiate phosphate binder per nephrology. ID: Severe sepsis Healthcare associated pneumonia /ESBL E. coli on culture 01/14 -On ertapenem renally dosed since 01/17. -ESBL isolation Sputum 01/14 revealed ESBL positive E. coli. Blood cultures 2 no growth. HEME: Normocytic anemia -Monitor CBC, CMP, coags Continue ferrous sulfate 300 mg by 2 twice daily MSK: Right hip fracture status post hemiarthroplasty -Post op management per Ortho. PT ENDO: SSI Aspart insulin with Accu-Cheks to maintain euglycemia/low regimen every 6 hours Access -Utilize peripheral IVs. Central line indicated Prophylax -GI -lansoprazole -DVT -heparin subcu. Level 2 follow-up
[2018-01-25] MEDS: Artificial Tears Opth Drops 15 ML Bottle EACH EYE SCH ×2 (13:37→21:10)
[2018-01-25] MEDS: Insulin NovoLOG Aspart Correctional Sugar Inj SQ SCH ×2 (13:38→18:19)
--- NOTE | 2018-01-25 19:33 | P.PNNP ---
Subjective Interval history: no acute events Physical Exam Vital signs: Vital Signs 01/24/18 19:54 01/24/18 20:00 01/24/18 22:00 Temperature 97.6 F Pulse Rate 81 69 Respiratory Rate 19 21 Blood Pressure 139/77 Pulse Oximetry 100 100 01/25/18 00:00 01/25/18 02:00 01/25/18 02:43 Temperature 97.9 F Pulse Rate 76 79 Respiratory Rate 16 14 Blood Pressure 134/71 Pulse Oximetry 98 01/25/18 04:00 01/25/18 06:00 01/25/18 08:00 Temperature 98.1 F 98.7 F Pulse Rate 76 71 72 Respiratory Rate 16 15 Blood Pressure 141/76 H 124/67 Pulse Oximetry 99 100 01/25/18 12:00 01/25/18 14:00 01/25/18 16:00 Temperature 98.6 F 97.6 F Pulse Rate 70 69 58 L Respiratory Rate 15 17 Blood Pressure 120/69 104/60 Pulse Oximetry 99 01/25/18 18:00 Temperature Pulse Rate 66 Respiratory Rate Blood Pressure Pulse Oximetry Intake & Output 01/25/18 01/25/18 01/26/18 06:59 18:59 06:59 Intake Total 491 / 491 450 / 450 Output Total 475 / 475 400 / 400 Balance 50 / 50 Weight 81.4 kg Intake: IV 50 / 50 INVanz Inj 500 MG In NS Inj 50 50 / 50 ML @ 100 mls/hr IV.SIG Q24H SOPHIE Rx#:[id number] Tube Feeding 371 / 371 400 / 400 Tube Irrigant 120 / 120 Output: Urine 475 / 475 400 / 400 Other: Date of Last Bowel Movement 01/24/18 01/24/18 # Bowel Movements 0 - Constitutional no acute distress - Routine HEENT Exam Head: Present: normocephalic - Routine Neck Exam Present: supple - Routine Respiratory Exam Present: decreased breath sounds - Routine Cardiovascular Exam Present: RRR - Routine Abdominal Exam Present: soft - Routine Skin Exam Present: intact - Routine Psychiatric Exam Present: unable to assess - Urinary Catheter Management Indwelling Urethral Catheter Cath placed during this visit: yes Urethral indwelling: Yes Reason for continuing: Other continuation reason Insertion date: 01/10/18 Insertion time: 12:17 Assessment and Plan - Assessment (1) Acute kidney injury Code(s): N17.9 - Acute kidney failure, unspecified Status: Acute Plan: kidney ultrasound showed echogenic kidney. Creatinine at 5.48 - > 5.3 K 4.4 Urinary output 1L/ 24 hours Patient is a poor candidate for hemodialysis Avoid nephrotoxins French catheter Will continue to monitor urinary output and BMP. No acute need for dialysis at this time Continue to follow goals of care with patient's family
[2018-01-25] MEDS: Docusate Sodium Liq 100 MG/10 ML UDC NG/OG SCH (21:05)
[2018-01-26] MEDS: Oral Hygiene Kit OROPHARYNG SCH ×5 (01:34→23:42)
[2018-01-26] MEDS: NIFEdipine 10 MG Capsule NG/OG SCH ×3 (02:00→21:02)
[2018-01-26 02:42] LABS: Hematocrit 22.8 % (35.0-46.0); Hemoglobin 7.5 gm/dL (11.6-15.3); Mean Corpuscular Hemoglobin 28.7 pg (27.0-34.0); Mean Corpuscular Volume 86.8 fL (80.0-100.0); Mean Platelet Volume 8.9 fL (7.0-11.0); Platelet Count 310 th/mm3 (150-450); Red Blood Count 2.63 mil/mm3 (4.00-5.30); White Blood Count 6.5 th/mm3 (4.0-11.0)
[2018-01-26 02:57] LABS: Albumin 1.8 g/dL (3.4-5.0); Anion Gap 14 meq/L (5-15); Aspartate Aminotransferase 44 U/L (15-37); Blood Urea Nitrogen 123 mg/dL (7-18); Calcium 8.5 mg/dL (8.5-10.1); Carbon Dioxide 22.7 meq/L (21.0-32.0); Chloride 99 meq/L (98-107); Glomerular Filtration Rate 9 mL/min (>89); Glucose,Random 131 mg/dL (74-106); Potassium 4.4 meq/L (3.5-5.1); Sodium 136 meq/L (136-145)
[2018-01-26 03:00] LABS: Alanine Aminotransferase 9 U/L (10-53); Alkaline Phosphatase 103 U/L (45-117); Total Protein 6.3 g/dL (6.4-8.2)
--- NOTE | 2018-01-26 05:28 | XR ---
EXAM DATE: 01/26/2018 5:05 AM EDT AGE/SEX: 72 years / Female INDICATIONS: Respiratory failure. CLINICAL DATA: This is the patient's subsequent encounter. Patient reports that signs and symptoms h ave been present for 2 weeks and indicates a pain score of Nonresponsive. MEDICAL/SURGICAL HISTORY: Hypertension. Cerebrovascular disease. Cardiovascular disease. Dem entia. Stroke. Tubal ligation. Right total hip replacement. [place] [facility] [place]. . FINDINGS: Single AP view of the chest. Endotracheal tube and nasogastric tube remain in place. Persistent left lower lobe consolidation versus atelectasis. Increased bilateral hazy pulmonary opacity likely repres enting mild pulmonary edema. Small bilateral pleural effusions. CONCLUSION: Persistent left lower lobe consolidation versus atelectasis. New bilateral hazy lung opacity likely r epresent mild pulmonary edema along with new small bilateral pleural effusions. Electronically signed by: Abrahan Reyes MD 01/26/2018 5:27 AM EDT
[2018-01-26] MEDS: Artificial Tears Opth Drops 15 ML Bottle EACH EYE SCH ×3 (05:48→21:03)
[2018-01-26] MEDS: Insulin NovoLOG Aspart Correctional Sugar Inj SQ SCH ×3 (05:50→12:00)
[2018-01-26 07:20] LABS: Baso # (Auto) 0.1 th/mm3 (0.0-0.2); Baso % (Auto) 1.2 % (0.0-2.0); Eos # (Auto) 0.1 th/mm3 (0.0-0.4); Eos % (Auto) 2.3 % (0.0-4.0); Hematocrit 23.3 % (35.0-46.0); Hemoglobin 7.6 gm/dL (11.6-15.3); Lymph % (Auto) 16.8 % (9.0-44.0); Mean Corpuscular HGB Conc 32.7 % (32.0-36.0); Mean Corpuscular Hemoglobin 28.3 pg (27.0-34.0); Mean Corpuscular Volume 86.4 fL (80.0-100.0); Mean Platelet Volume 8.8 fL (7.0-11.0); Mono # (Auto) 0.7 th/mm3 (0.0-0.9); Mono % (Auto) 11.5 % (0.0-8.0); Neut # (Auto) 3.9 th/mm3 (1.8-7.7); Neut % (Auto) 68.2 % (16.0-70.0); Platelet Count 305 th/mm3 (150-450); Red Blood Count 2.69 mil/mm3 (4.00-5.30); Red Cell Distribution Width 16.2 % (11.6-17.2); White Blood Count 5.8 th/mm3 (4.0-11.0)
[2018-01-26 07:42] LABS: Albumin 1.7 g/dL (3.4-5.0); Anion Gap 16 meq/L (5-15); Aspartate Aminotransferase 39 U/L (15-37); Blood Urea Nitrogen 126 mg/dL (7-18); Chloride 98 meq/L (98-107); Glomerular Filtration Rate 9 mL/min (>89); Glucose,Random 116 mg/dL (74-106); Magnesium 2.6 mg/dL (1.5-2.5); Potassium 4.5 meq/L (3.5-5.1); Sodium 136 meq/L (136-145)
--- NOTE | 2018-01-26 07:42 | P.PNCC ---
Subjective Subjective Remarks/Hospital Course: Patient is a 72-year-old female with history of chronic kidney disease, dementia , hepatitis C, hypertension, monoclonal gammopathy who was admitted to the hospitalist service after she sustained right femoral neck fracture from a fall , she underwent right hip hemiarthroplasty 01/10/18. Patient has stage IV kidney disease and was admitted with BUN 78 creatinine of 4. Patient had been declining since admission was lethargic since yesterday. A CT of the head was negative. Became more unresponsive and unarousable since today afternoon. BUN/ creatinine today 104/5.74. Due to worsening mental status she was brought to the ICU and critical care medicine was consulted. Palliative care was consulted due to advanced dementia is worsening chronic kidney disease and encephalopathy but family wants aggressive care. I evaluated the patient in the ICU, patient is completely unresponsive, not waking up to painful stimuli. Gurgling breath sounds not protecting airway. Emergently intubated and placed on mechanical ventilation. Suctioned out large amount of moderate white to yellow thick secretions from the glottic opening. Patient probably has pneumonia based on secretions and bilateral alveolar infiltrates on chest x- ray. Worsening mental status most likely secondary to metabolic encephalopathy , antibiotics broadened to Zosyn and vancomycin. 01/15: Remains intubated critically ill. BUN/creatinine remains elevated at 109/ 5.7. Chest x-ray shows persistent bilateral left more than right infiltrates. Patient remains encephalopathy go for sedation. Multiple nonsustained episodes of ventricular tachycardia. Had extensive discussion with daughter at the bedside and son over the phone. I encouraged him to consider DNR status given patient's dementia, worsening renal failure, cardiac dysrhythmias and sepsis now 01/16: Patient remains intubated off sedation for 24 hours. Remains unresponsive very slight withdrawal to pain. Sputum culture growing GNR. BUN creatinine slightly improved 97/5.43. Urine output approximately 800 mL in 24 hours. Hb 6.8, 1U PRBC ordered. Updated son at bedside 01/17: Remains severely encephalopathic. MRI brain yesterday shows multiple embolic lacunar infarct involving frontal lobes, right basal ganglia and left temporal occipital lobe. Severe diffuse periventricular and subcortical white matter small vessel ischemic changes are again noted. Pontine ischemic changes are also noted. Also diffuse probable amyloid angiopathy or hypertensive microhemorrhages, scattered old lacunar infarcts. Neurology had been consulted. Sputum culture growing ESBL E. coli Zosyn DC'd and ertapenem started 630: Remains severely encephalopathy. Continues to have no spontaneous eye opening. Renal function worsening. BUN/cr 111/5.7. Urine output 1 L in 24 hours 01/19: Remains intubated off all sedation no improvement in neuro status intermittently moves extremities spontaneously. Did not follow commands. Diminishing urine output 500 mL in 24 hours 01/20: No change in clinical condition remains unresponsive very weak withdrawal to pain. Urine output 750 mL in 24 hours, no acute indication for hemodialysis. 01/21 [facility] palliative care met with family today and they elected to change CODE STATUS to DO NOT RESUSCITATE. They indicated they would not want trach and PEG , needing time to discuss. I reached out to Carmen and she says she has no further questions at this time. 01/22 No neuro change. Family indicates no trach/peg. Awaiting decision regarding withdrawal 01/23: Remains encephalopathic, orally intubated on mechanical ventilation. Not requiring any sedation. Tolerating tube feeds. 01/24: Remains encephalopathic, orally intubated on mechanical ventilation. Tolerating tube feeds. Family deciding regarding goals of therapy and possible de-escalation of therapy. 01/25: Afebrile. Gaze to the right. Withdraws to pain 4. Tolerating tube feeds. Positive BM. SUBJECTIVE: 01/26: Afebrile. Bradycardic this a.m. Slightly breathing over the ventilator at time. He does have gaze to the right. Withdraws to pain 4. Tolerating tube feeds. Neurologically unchanged. Objective Vital Signs / I&O: Vital Signs 01/25/18 08:00 01/25/18 12:00 01/25/18 14:00 Temperature 98.7 F 98.6 F Pulse Rate 72 70 69 Respiratory Rate 15 15 Blood Pressure 124/67 120/69 Pulse Oximetry 100 01/25/18 16:00 01/25/18 18:00 01/25/18 19:49 Temperature 97.6 F Pulse Rate 58 L 66 Respiratory Rate 17 16 Blood Pressure 104/60 Pulse Oximetry 99 100 01/25/18 19:50 01/25/18 20:00 01/25/18 22:00 Temperature 97.5 F L Pulse Rate 66 70 55 L Respiratory Rate 19 15 Blood Pressure 143/74 H Pulse Oximetry 100 01/26/18 00:00 01/26/18 00:30 01/26/18 00:32 Temperature 97.6 F Pulse Rate 54 L 56 L Respiratory Rate 15 15 20 Blood Pressure 126/65 Pulse Oximetry 100 100 01/26/18 02:00 01/26/18 03:33 01/26/18 04:00 Temperature 97.4 F L Pulse Rate 60 63 60 Respiratory Rate 15 17 Blood Pressure 138/74 Pulse Oximetry 100 01/26/18 04:23 01/26/18 06:00 Temperature Pulse Rate 73 Respiratory Rate 18 Blood Pressure Pulse Oximetry 100 Intake & Output 01/25/18 01/26/18 01/26/18 18:59 06:59 18:59 Intake Total 450 / 450 521 / 521 Output Total 400 / 400 400 / 400 Balance 50 / 50 121 / 121 Weight 80.1 kg Intake: IV 50 / 50 INVanz Inj 500 MG In NS Inj 50 50 / 50 ML @ 100 mls/hr IV.SIG Q24H SOPHIE Rx#:[id number] Tube Feeding 400 / 400 421 / 421 Tube Irrigant 100 / 100 Output: Urine 400 / 400 Urine Amount (Catheter) 400 / 400 Indwelling Urethral Catheter 400 / 400 Other: Date of Last Bowel Movement 01/24/18 01/24/18 Result Diagrams: 01/26/18 05:45 01/26/18 05:45 Imaging: ITS Impressions Chest X-Ray 01/21/18 06:00 CONCLUSION: Persistent lobar consolidation left lower lung. Hip X-Ray 01/23/18 00:00 CONCLUSION: Good position and alignment on this postoperative study. Chest X-Ray 01/26/18 06:00 CONCLUSION: Persistent left lower lobe consolidation versus atelectasis. New bilateral hazy lung opacity likely represent mild pulmonary edema along with new small bilateral pleural effusions. Objective Remarks: GENERAL: 72-year-old -[place] female lying in bed, off all sedation, remains encephalopathic SKIN: Coccyx deep tissue injury stage III, bilateral heel ulcerations. HEAD: Atraumatic. Normocephalic. EYES: Pupils equal round. No spontaneous eye opening ENT: Nose without bleeding, Edentulous. Orotracheally intubated, tongue protruding. NECK: Trachea midline. No JVD or lymphadenopathy. CARDIOVASCULAR: S1 S2 normal rhythm without murmurs, gallops, or rubs. RESPIRATORY: Diminished breath sounds with coarse rhonchi bilaterally. GASTROINTESTINAL: Abdomen soft, nondistended. Nontender hypoactive bowel sounds are appreciated. MUSCULOSKELETAL: Postoperative changes noted. No obvious edema or swelling. NEUROLOGICAL: Patient remains unresponsive off sedation, R gaze preference with horizontal nystagmus. Slight withdrawal of upper and lower extremities noted with painful stimuli, no eye opening. Assessment and Plan - Assessment and Plan Plan: NEURO/PSYCH: Acute metabolic encephalopathy Multiple scattered embolic strokes, pontine ischemia Dementia disorder NOS History of prior CVA -MRI Brain 01/17/18: Punctate signal abnormalities throughout the periventricular white matter bilaterally as well as scattered throughout the frontal lobes, right basal ganglia and left temporal occipital lobe on the diffusion-weighted images indicating acute embolic lacunar infarcts. Clinical correlation is recommended. Severe diffuse periventricular and subcortical white matter small vessel ischemic changes are again noted. Pontine ischemic changes are also noted. -Neurology Dr. Hurt, would support transition to comfort if family elects. -Continue aspirin 81 mg daily daily, unable to anticoagulate due to anemia requiring transfusion. -Encephalopathy most likely secondary to multiple embolic strokes -EEG 01/15 revealed weights. Moderate encephalopathy. No epileptic activity. -CT of the head negative 01/13, -Not on any sedation -Carotid Doppler 01/06 revealed no significant stenosis RESP: Acute hypoxemic respiratory failure HCAP/ESBL E Coli -Emergently intubated and placed on mechanical ventilation 01/14. -PRVC 15/500/07/29/39 -Daily spontaneous breathing trials but mental status will not permit extubation -Albuterol/ipratropium aerosols every 4 hours with albuterol aerosols every 2 hours as needed for dyspnea -See ID for ABX -Palliative care discussed with family regarding tracheostomy and PEG tube. -Chest x-ray revealed persistent lower lobe infiltrate/mild pulmonary edema CV: Nonsustained ventricular tachycardia Essential hypertension -Metoprolol IV as needed for PVCs/nonsustained V. tach -Today we will discontinue carvedilol 6.25 twice daily due to bradycardia. Continue hydralazine 100 mg 3 times daily and nifedipine 30 mg every 8 hours/ home medications 2D echocardiogram 01/18 revealed EF 55-60%. Trace AR/MR/TR. GI: Hypoalbuminemia -Continue tube feeds to Suplena at 40 mL/h per nutrition recommendations. -Lansoprazole for GI prophylaxis -Docusate sodium 100 mg twice daily for bowel regimen Renal/FEN/: Acute on chronic kidney disease Hyperphosphatemia -Monitor renal function closely. French catheter. Nephrology following Dr. Sanchez Agree with nephrology, patient is a poor candidate for hemodialysis. Initiate phosphate binder per nephrology. ID: Severe sepsis Healthcare associated pneumonia /ESBL E. coli on culture 01/14 -On ertapenem renally dosed since 01/17. -ESBL isolation Sputum 01/14 revealed ESBL positive E. coli. Blood cultures 2 no growth. HEME: Normocytic anemia -Monitor CBC, CMP, coags Continue ferrous sulfate 300 mg tube twice daily MSK: Right hip fracture status post hemiarthroplasty by Dr. Jones 01/10 -Post op management per Ortho. PT ENDO: SSI Aspart insulin with Accu-Cheks to maintain euglycemia/low regimen every 6 hours TSH 0.314 01/06. Recheck with free T4 and T3 in a.m. Access -Utilize peripheral IVs. Central line indicated Prophylax -GI -lansoprazole -DVT -heparin subcu. Level 2 follow-up
[2018-01-26 07:43] LABS: Alanine Aminotransferase 10 U/L (10-53); Phosphorus 6.2 mg/dL (2.5-4.9)
[2018-01-26 07:45] LABS: Alkaline Phosphatase 111 U/L (45-117); Total Protein 6.6 g/dL (6.4-8.2)
[2018-01-26] MEDS: Chlorhexidine 0.12% Oral Kit 15 ML UDC SWISH-SPIT SCH ×2 (08:00→21:02)
[2018-01-26] MEDS: SODIUM CHLOR 0.9% IV.SIG SCH (09:00)
[2018-01-26] MEDS: ERTAPENEM IV.SIG SCH (09:00)
[2018-01-26] MEDS: Heparin - SQ 10,000 UNITS/ML Vial SQ SCH ×2 (09:00→21:01)
[2018-01-26] MEDS: Docusate Sodium Liq 100 MG/10 ML UDC NG/OG SCH ×2 (09:00→21:02)
[2018-01-26] MEDS: Ferrrous Sulfate 300 MG/5 ML UDC NG/OG SCH ×2 (09:00→21:02)
--- NOTE | 2018-01-26 13:49 | P.PNNP ---
Subjective Interval history: no acute events, bradycardia earlier Physical Exam Vital signs: Vital Signs 01/25/18 14:00 01/25/18 16:00 01/25/18 18:00 Temperature 97.6 F Pulse Rate 69 58 L 66 Respiratory Rate 17 Blood Pressure 104/60 Pulse Oximetry 99 01/25/18 19:49 01/25/18 19:50 01/25/18 20:00 Temperature 97.5 F L Pulse Rate 66 70 Respiratory Rate 16 19 15 Blood Pressure 143/74 H Pulse Oximetry 100 100 01/25/18 22:00 01/26/18 00:00 01/26/18 00:30 Temperature 97.6 F Pulse Rate 55 L 54 L 56 L Respiratory Rate 15 15 Blood Pressure 126/65 Pulse Oximetry 100 01/26/18 00:32 01/26/18 02:00 01/26/18 03:33 Temperature Pulse Rate 60 63 Respiratory Rate 20 15 Blood Pressure Pulse Oximetry 100 01/26/18 04:00 01/26/18 04:23 01/26/18 06:00 Temperature 97.4 F L Pulse Rate 60 73 Respiratory Rate 17 18 Blood Pressure 138/74 Pulse Oximetry 100 100 01/26/18 08:00 01/26/18 08:47 01/26/18 10:00 Temperature 97.6 F Pulse Rate 52 L 54 L 63 Respiratory Rate 25 H 20 Blood Pressure 123/68 Pulse Oximetry 92 L 01/26/18 12:00 01/26/18 12:51 Temperature Pulse Rate 59 L 59 L Respiratory Rate 18 15 Blood Pressure 135/68 Pulse Oximetry 93 L 95 Intake & Output 01/25/18 01/26/18 01/26/18 18:59 06:59 18:59 Intake Total 450 / 450 521 / 521 50 / 50 Output Total 400 / 400 400 / 400 Balance 50 / 50 121 / 121 50 / 50 Weight 80.1 kg Intake: IV 50 / 50 50 / 50 INVanz Inj 500 MG In NS Inj 50 50 / 50 50 / 50 ML @ 100 mls/hr IV.SIG Q24H [facility] Rx#:[id number] Tube Feeding 400 / 400 421 / 421 Tube Irrigant 100 / 100 Output: Urine 400 / 400 Urine Amount (Catheter) 400 / 400 Indwelling Urethral Catheter 400 / 400 Other: Date of Last Bowel Movement 01/24/18 01/24/18 01/24/18 - Constitutional no acute distress, somnolent - Routine HEENT Exam Head: Present: normocephalic - Routine Neck Exam Present: supple - Routine Respiratory Exam Present: diminished air movement - Routine Cardiovascular Exam Present: RRR - Routine Abdominal Exam Present: soft - Routine Skin Exam Present: intact - Routine Psychiatric Exam Present: unable to assess - Urinary Catheter Management Indwelling Urethral Catheter Cath placed during this visit: yes Urethral indwelling: Yes Reason for continuing: Hourly intake/output Insertion date: 01/10/18 Insertion time: 12:17 Assessment and Plan - Assessment (1) Acute kidney injury Code(s): N17.9 - Acute kidney failure, unspecified Status: Acute Plan: kidney ultrasound showed echogenic kidney. Creatinine at 5.48 - > 5.3 -> 5.38 K 4.5 Urinary output 400cc/ 24 hours Patient is a poor candidate for hemodialysis Avoid nephrotoxins French catheter Will continue to monitor urinary output and BMP. No acute need for dialysis at this time Continue to follow goals of care with patient's family
[2018-01-27] MEDS: Oral Hygiene Kit OROPHARYNG SCH ×3 (04:05→23:19)
[2018-01-27] MEDS: Artificial Tears Opth Drops 15 ML Bottle EACH EYE SCH ×3 (04:05→20:58)
[2018-01-27 04:18] LABS: Baso # (Auto) 0.1 th/mm3 (0.0-0.2); Baso % (Auto) 1.2 % (0.0-2.0); Eos # (Auto) 0.1 th/mm3 (0.0-0.4); Eos % (Auto) 2.1 % (0.0-4.0); Hematocrit 24.1 % (35.0-46.0); Lymph # (Auto) 1.1 th/mm3 (1.0-4.8); Lymph % (Auto) 17.3 % (9.0-44.0); Mean Corpuscular Hemoglobin 28.5 pg (27.0-34.0); Mean Corpuscular Volume 86.3 fL (80.0-100.0); Mean Platelet Volume 8.8 fL (7.0-11.0); Mono # (Auto) 0.7 th/mm3 (0.0-0.9); Mono % (Auto) 10.9 % (0.0-8.0); Neut # (Auto) 4.2 th/mm3 (1.8-7.7); Neut % (Auto) 68.5 % (16.0-70.0); Platelet Count 354 th/mm3 (150-450); Red Blood Count 2.79 mil/mm3 (4.00-5.30); Red Cell Distribution Width 15.8 % (11.6-17.2); White Blood Count 6.1 th/mm3 (4.0-11.0)
[2018-01-27 04:35] LABS: Albumin 1.9 g/dL (3.4-5.0); Anion Gap 14 meq/L (5-15); Aspartate Aminotransferase 39 U/L (15-37); Blood Urea Nitrogen 125 mg/dL (7-18); Calcium 8.6 mg/dL (8.5-10.1); Carbon Dioxide 22.1 meq/L (21.0-32.0); Chloride 99 meq/L (98-107); Glomerular Filtration Rate 9 mL/min (>89); Glucose,Random 103 mg/dL (74-106); Magnesium 2.6 mg/dL (1.5-2.5); Potassium 4.8 meq/L (3.5-5.1); Sodium 135 meq/L (136-145)
[2018-01-27 04:44] LABS: Alanine Aminotransferase 10 U/L (10-53); Alkaline Phosphatase 111 U/L (45-117); Free T4 (Free Thyroxine) 1.31 ng/dL (0.76-1.46); Phosphorus 6.4 mg/dL (2.5-4.9); Total Protein 7.1 g/dL (6.4-8.2); Triiodothyronine (T3) Free 1.56 pg/mL (2.18-3.98)
--- NOTE | 2018-01-27 04:54 | XR ---
EXAM DATE: 01/27/2018 4:18 AM EDT AGE/SEX: 72 years / Female INDICATIONS: Respiratory failure. CLINICAL DATA: This is the patient's subsequent encounter. Patient reports that signs and symptoms h ave been present for 2 weeks and indicates a pain score of Nonresponsive. MEDICAL/SURGICAL HISTORY: . Hypertension. Cerebrovascular disease. Cardiovascular disease. Sy ntia. Stroke. . Tubal ligation. Right total hip replacement. [place]PAR[place]: [facility] [place] 1[place]/26/2018. . FINDINGS: Stable ETT and NGT coursing beyond the GE junction. Hazy bilateral opacities, now worse on the left. Mild bilateral lower lung zone associated airspace disease. Cardiac silhouette is enlarged with indis tinct central pulmonary vasculature. Bony thorax is intact. CONCLUSION: 1. Cardiomegaly with pulmonary vascular congestion. 2. Worsening bilateral pleural effusions with associated airspace disease in the lower lung zones. Electronically signed by: Williams Bruce MD 01/27/2018 4:53 AM EDT
[2018-01-27] MEDS: NIFEdipine 10 MG Capsule NG/OG SCH ×3 (06:30→21:00)
--- NOTE | 2018-01-27 10:34 | P.PNCC ---
Subjective Subjective Remarks/Hospital Course: Patient is a 72-year-old female with history of chronic kidney disease, dementia , hepatitis C, hypertension, monoclonal gammopathy who was admitted to the hospitalist service after she sustained right femoral neck fracture from a fall , she underwent right hip hemiarthroplasty 01/10/18. Patient has stage IV kidney disease and was admitted with BUN 78 creatinine of 4. Patient had been declining since admission was lethargic since yesterday. A CT of the head was negative. Became more unresponsive and unarousable since today afternoon. BUN/ creatinine today 104/5.74. Due to worsening mental status she was brought to the ICU and critical care medicine was consulted. Palliative care was consulted due to advanced dementia is worsening chronic kidney disease and encephalopathy but family wants aggressive care. I evaluated the patient in the ICU, patient is completely unresponsive, not waking up to painful stimuli. Gurgling breath sounds not protecting airway. Emergently intubated and placed on mechanical ventilation. Suctioned out large amount of moderate white to yellow thick secretions from the glottic opening. Patient probably has pneumonia based on secretions and bilateral alveolar infiltrates on chest x- ray. Worsening mental status most likely secondary to metabolic encephalopathy , antibiotics broadened to Zosyn and vancomycin. SUBJ 01/15: Remains intubated critically ill. BUN/creatinine remains elevated at 109/5.7. Chest x-ray shows persistent bilateral left more than right infiltrates. Patient remains encephalopathy go for sedation. Multiple nonsustained episodes of ventricular tachycardia. Had extensive discussion with daughter at the bedside and son over the phone. I encouraged him to consider DNR status given patient's dementia, worsening renal failure, cardiac dysrhythmias and sepsis now 01/16: Patient remains intubated off sedation for 24 hours. Remains unresponsive very slight withdrawal to pain. Sputum culture growing GNR. BUN creatinine slightly improved 97/5.43. Urine output approximately 800 mL in 24 hours. Hb 6.8, 1U PRBC ordered. Updated son at bedside 01/17: Remains severely encephalopathic. MRI brain yesterday shows multiple embolic lacunar infarct involving frontal lobes, right basal ganglia and left temporal occipital lobe. Severe diffuse periventricular and subcortical white matter small vessel ischemic changes are again noted. Pontine ischemic changes are also noted. Also diffuse probable amyloid angiopathy or hypertensive microhemorrhages, scattered old lacunar infarcts. Neurology had been consulted. Sputum culture growing ESBL E. coli Zosyn DC'd and ertapenem started 630: Remains severely encephalopathy. Continues to have no spontaneous eye opening. Renal function worsening. BUN/cr 111/5.7. Urine output 1 L in 24 hours 01/19: Remains intubated off all sedation no improvement in neuro status intermittently moves extremities spontaneously. Did not follow commands. Diminishing urine output 500 mL in 24 hours 01/20: No change in clinical condition remains unresponsive very weak withdrawal to pain. Urine output 750 mL in 24 hours, no acute indication for hemodialysis. Subjective: 01/21 [facility] palliative care met with family today and they elected to change CODE STATUS to DO NOT RESUSCITATE. They indicated they would not want trach and PEG , needing time to discuss. I reached out to Carmen and she says she has no further questions at this time. 01/22 No neuro change. Family indicates no trach/peg. Awaiting decision regarding withdrawal 01/23: Remains encephalopathic, orally intubated on mechanical ventilation. Not requiring any sedation. Tolerating tube feeds. 01/24: Remains encephalopathic, orally intubated on mechanical ventilation. Tolerating tube feeds. Family deciding regarding goals of therapy and possible de-escalation of therapy. 01/25: Afebrile. Gaze to the right. Withdraws to pain 4. Tolerating tube feeds. Positive BM. SUBJECTIVE: 01/26: Afebrile. Bradycardic this a.m. Slightly breathing over the ventilator at time. He does have gaze to the right. Withdraws to pain 4. Tolerating tube feeds. Neurologically unchanged. 01/27: No change in neurological status. Rarely breathes over vent. Unable to extubate. Objective Vital Signs / I&O: Vital Signs 01/26/18 12:00 01/26/18 12:51 01/26/18 14:00 Temperature Pulse Rate 59 L 59 L 60 Respiratory Rate 18 15 Blood Pressure 135/68 Pulse Oximetry 93 L 95 01/26/18 16:00 01/26/18 16:33 01/26/18 18:00 Temperature Pulse Rate 54 L 49 L 53 L Respiratory Rate 19 23 Blood Pressure 105/76 Pulse Oximetry 95 89 L 01/26/18 20:00 01/26/18 20:22 01/26/18 22:00 Temperature 97.3 F L Pulse Rate 89 62 64 Respiratory Rate 16 16 Blood Pressure 117/80 Pulse Oximetry 96 94 L 01/26/18 23:38 01/27/18 00:00 01/27/18 00:04 Temperature 99.5 F Pulse Rate 66 67 Respiratory Rate 18 15 17 Blood Pressure 131/72 Pulse Oximetry 94 L 95 01/27/18 02:00 01/27/18 03:33 01/27/18 03:35 Temperature Pulse Rate 76 78 Respiratory Rate 18 15 Blood Pressure Pulse Oximetry 98 01/27/18 04:00 01/27/18 06:00 01/27/18 07:58 Temperature 98.7 F Pulse Rate 73 69 64 Respiratory Rate 15 17 Blood Pressure 151/86 H Pulse Oximetry 96 90 L 01/27/18 08:00 01/27/18 10:00 Temperature 98 F Pulse Rate 76 76 Respiratory Rate Blood Pressure 140/80 Pulse Oximetry 94 L Intake & Output 01/26/18 01/27/18 01/27/18 18:59 06:59 18:59 Intake Total 522 / 522 430 / 430 Output Total 450 / 450 400 / 400 Balance 72 / 72 30 / 30 Weight 80.1 kg Intake: IV 50 / 50 INVanz Inj 500 MG In NS Inj 50 50 / 50 ML @ 100 mls/hr IV.SIG Q24H [facility] Rx#:[id number] Tube Feeding 442 / 442 370 / 370 Tube Irrigant 30 / 30 60 / 60 Output: Urine Amount (Catheter) 450 / 450 400 / 400 Indwelling Urethral Catheter 450 / 450 400 / 400 Other: Date of Last Bowel Movement 01/24/18 01/24/18 01/24/18 Result Diagrams: 01/27/18 03:33 01/27/18 03:33 Objective Remarks: GENERAL: -[place] female lying in bed, off all sedation, remains encephalopathic SKIN: No rashes, ecchymoses or lesions. HEAD: Atraumatic. Normocephalic. EYES: Pupils equal round. No spontaneous eye opening ENT: Nose without bleeding, Edentulous. Orotracheally intubated NECK: Trachea midline. CARDIOVASCULAR: S1 S2 normal rhythm without murmurs, gallops, or rubs. No JVD. RESPIRATORY: Diminished breath sounds bases with coarse rhonchi bilaterally. Acceptable bilateral air movement. GASTROINTESTINAL: Abdomen soft, nondistended. Nontender. No guarding, bowel sounds present. MUSCULOSKELETAL: Knee immobilizer in place right knee. NEUROLOGICAL: Patient remains unresponsive off sedation, R gaze preference with horizontal nystagmus. Slight withdrawal of extremities noted with painful stimuli, no eye opening. No change from last 24 hours. Assessment and Plan - Assessment and Plan Plan: A/P Assessment and Plan ASSESSMENT/PLAN: NEURO: Acute metabolic encephalopathy Multiple scattered embolic strokes, pontine ischemia Probable hypertensive microhemorrhages versus amyloid angiopathy Dementia -MRI Brain 01/17/18: Multiple embolic lacunar infarct involving frontal lobes, right basal ganglia and left temporal occipital lobe. Severe diffuse periventricular and subcortical white matter small vessel ischemic changes. Pontine ischemic changes noted. Probable amyloid angiopathy or hypertensive microhemorrhages, scattered old lacunar infarcts. -Neurology Dr. Hurt, would support transition to comfort if family elects. -Continue aspirin daily, unable to anticoagulate due to anemia requiring transfusion. Continue heparin 5000 units subcu every 12 -Encephalopathy most likely secondary to multiple embolic strokes, sepsis -CT of the head negative 01/13, EEG no seizures -Not on any sedation -Carotid Doppler no significant stenosis RESP: Acute hypoxemic respiratory failure HCAP/ESBL E Coli -Emergently intubated and placed on mechanical ventilation 01/14. VENT DAY 8 -Daily spontaneous breathing trials but mental status will not permit extubation -DuoNeb every 6 hours scheduled and as needed -See ID for ABX -Palliative care discussed with family regarding tracheostomy and PEG tube. It appears they do not want trach and PEG. They are needing more time but are discussing transition to comfort measures. CV: Nonsustained ventricular tachycardia Hypertension -Metoprolol IV as needed for PVCs/nonsustained V. tach -Serial cardiac enzymes. Prev Echo 2017, preserved LV ejection fraction, moderate LVH -Continue carvedilol continue oral hydralazine, nicardipine GI: -Suplena tube feeding at 40 mL/h per nutrition recommendations. -IV famotidine for GI prophylaxis : Acute on chronic kidney disease -Monitor renal function closely. French catheter. Nephrology following Dr. Sanchez Agree with nephrology, patient is a poor candidate for hemodialysis. ID: Severe sepsis Healthcare associated pneumonia /ESBL E. coli on culture 01/14 -ESBL isolation HEME: Anemia requiring transfusion -Monitor CBC, CMP, coags MSK: Right hip fracture status post hemiarthroplasty -Post op management per Ortho. PT ENDO: -Watch closely for hyperkalemia -Careful electrolyte replacement PROPH: -Bilateral lower extremity SCDs. Sq Heparin 5000 sq q12. IV famotidine 20 mg every 12 LINES: -Utilize peripheral IVs, CODE STATUS DO NOT RESUSCITATE Overall impression: MRI is consistent with physical exam. Significant neurological recovery is doubtful. Remains ventilator dependent and now in renal failure. I highly recommend against dialysis. Patient's short-term prognosis is very poor.
[2018-01-27] MEDS: Heparin - SQ 10,000 UNITS/ML Vial SQ SCH ×2 (11:00→20:59)
[2018-01-27] MEDS: Docusate Sodium Liq 100 MG/10 ML UDC NG/OG SCH ×2 (11:00→20:58)
[2018-01-27] MEDS: SODIUM CHLOR 0.9% IV.SIG SCH (11:04)
[2018-01-27] MEDS: ERTAPENEM IV.SIG SCH (11:04)
--- NOTE | 2018-01-27 13:08 | P.PNPAL ---
Reason for Visit Reason for visit: a. To assist with evaluation and management of symptoms including: Shortness of breath, pain, debility b. To assist medical decision maker(s) with: better understanding of current medical conditions; weighing benefits/burdens of medical treatment options; making medical treatment decisions. Subjective Subjective/Interval History: Follow-up medically necessary for further clarification of goals of care. Patient seen and examined in the room on [facility]. Patient remains intubated on mechanical ventilation, with no improvement of neurological status. Patient is currently on spontaneous breathing trials. Chest x-ray today revealing cardiomegaly with pulmonary vascular congestion and worsening bilateral pleural effusions with associated airspace disease in the lower lung zones. Her eyes remained closed during examination and she is difficult to arouse. Slightly withdraws to noxious stimulation with all 4 extremities, no purposeful movements. Report of patient having bradycardia with heart rate in the 30s and hypothermic from bedside RN. Laboratory workup today revealing WBC 6.1, hemoglobin 8.0, hematocrit 24.1, platelet count 354, sodium 135, potassium 4.8, BUN/creatinine 125/5.43-worsening, phosphorus 6.4, magnesium 2.6, total protein 7.1, 1.9, TSH 5.140. Nephrology following, patient remains a poor candidate for hemodialysis and per nephrology, there is no acute need for dialysis at this time. Wound care consulted on 01/24/18 for evaluation of wound to coccyx, right posterior leg skin tear, right heel non-blanchable purple discoloration and left heel non-blanchable purple discoloration to intact skin. Patient now has Multi-Podus boots to bilateral lower extremities. Physical therapy following. Telephone conversation with patient`s daughter Carmen Noel (Health care proxy). Inquired if she has had time to discuss further with her family regarding patient`s goals of care. Expressed concern that patient is not neurologically improving to a point where she can be safely medically extubated. Patient`s daughter hesitant to answer and mentioned that some of her family members have been reporting to her that patient is responding to them. Explained to patient` s daughter that patient is not responsive enough to stay awake for a long time or follow simple commands, or even to show that she can be able to protect her air way. Asked patient`s daughter if family wants to continue with aggressive treatment despite encephalopathy, worsening renal function and other ongoing comorbidities. Explained to her that aggressive treatment would include tracheostomy and PEG tube placement and Carmen stated that with the support of her family she does not want patient to have a tracheostomy and PEG placed. Patient`s daughter fixated on how many days patient can have ETT in. Discussed option of compassionately withdrawing patient from life support and transitioning patient to comfort care only. Patient`s daughter is still discussing further with the rest of the family. Expressed to her the importance of discussing that matter because patient has had ETT for a significant amount of time and is not showing improvement neurologically. Updated her that patient was bradycardic and hypothermic this morning. Patient`s daughter requested to be notified of such events so that she can relay them to other family members and hopefully that may help them understand how critical patient is. Case discussed with bedside boom stick man/Friend Interactions: Telephone conversation with patient`s daughter Carmen. See interval note Advance Directives Living Will: Never completed Health Care Surrogate: Never completed Durable Power of Track Template Maker: Never completed Health Care Surrogate [facility] [phone] Objective Vital Signs: Vital Signs 01/26/18 14:00 01/26/18 16:00 01/26/18 16:33 Temperature Pulse Rate 60 54 L 49 L Respiratory Rate 19 23 Blood Pressure 105/76 Pulse Oximetry 95 89 L 01/26/18 18:00 01/26/18 20:00 01/26/18 20:22 Temperature 97.3 F L Pulse Rate 53 L 89 62 Respiratory Rate 16 16 Blood Pressure 117/80 Pulse Oximetry 96 94 L 01/26/18 22:00 01/26/18 23:38 01/27/18 00:00 Temperature 99.5 F Pulse Rate 64 66 67 Respiratory Rate 18 15 Blood Pressure 131/72 Pulse Oximetry 94 L 01/27/18 00:04 01/27/18 02:00 01/27/18 03:33 Temperature Pulse Rate 76 78 Respiratory Rate 17 18 Blood Pressure Pulse Oximetry 95 01/27/18 03:35 01/27/18 04:00 01/27/18 06:00 Temperature 98.7 F Pulse Rate 73 69 Respiratory Rate 15 15 Blood Pressure 151/86 H Pulse Oximetry 98 96 01/27/18 07:58 01/27/18 08:00 01/27/18 10:00 Temperature 98 F Pulse Rate 64 76 76 Respiratory Rate 17 Blood Pressure 140/80 Pulse Oximetry 90 L 94 L 01/27/18 11:17 Temperature Pulse Rate 75 Respiratory Rate 19 Blood Pressure Pulse Oximetry 94 L Intake & Output 01/26/18 01/27/18 01/27/18 18:59 06:59 18:59 Intake Total 522 / 522 430 / 430 Output Total 450 / 450 400 / 400 Balance 72 / 72 30 / 30 Weight 80.1 kg Intake: IV 50 / 50 INVanz Inj 500 MG In NS Inj 50 50 / 50 ML @ 100 mls/hr IV.SIG Q24H [facility] Rx#:[id number] Tube Feeding 442 / 442 370 / 370 Tube Irrigant 30 / 30 60 / 60 Output: Urine Amount (Catheter) 450 / 450 400 / 400 Indwelling Urethral Catheter 450 / 450 400 / 400 Other: Date of Last Bowel Movement 01/24/18 01/24/18 01/24/18 Physical Exam: Physical Exam CONSTITUTIONAL/GENERAL: elderly patient, remains intubated and encephalopathic TUBES/LINES/DRAINS:NC, PIV, FC, NGT, ETT, bilateral soft restraints SKIN: Wound to coccyx per RN, Healing surgical incision to right lateral hip. HEAD: Atraumatic. Normocephalic. EYES: PERRLA. No eye opening. ENT: Nose without bleeding or purulent drainage.NGT with TF Nepro infusing at 40ml/hr CARDIOVASCULAR: S1, S2 normal, gallops, or rubs. No JVD. Peripheral pulses symmetric. RESPIRATORY/CHEST: Symmetric, unlabored respirations. Diminished breath sounds GASTROINTESTINAL: Abdomen soft, non-tender, nondistended. Bowel sounds present. GENITOURINARY: Without palpable bladder distension. French catheter in place. MUSCULOSKELETAL: Extremities without clubbing, cyanosis. Edematous to all 4 extremities NEUROLOGICAL: intubated with no sedation, no eye opening. PSYCHIATRIC: Unable to assess. Diagnostic Tests Laboratory: Laboratory Results - last 72 hr 01/25/18 01/25/18 01/25/18 05:05 12:24 17:15 WBC RBC Hgb Hct MCV MCH MCHC RDW Plt Count MPV Neut % (Auto) Lymph % (Auto) [place] % (Auto) Eos % (Auto) Baso % (Auto) Neut # (Auto) Lymph # (Auto) [place] # (Auto) Eos # (Auto) Baso # (Auto) WBC Differential Differential Comment Sodium 136 Potassium 4.4 Chloride 100 Carbon Dioxide 22.3 Anion Gap 14 BUN 119 H Creatinine 5.31 H Estimated GFR 10 L POC Glucose 137 H Random Glucose 109 H 149 H Lactic Acid Calcium 8.4 L Phosphorus 6.0 H Magnesium Total Bilirubin AST ALT Alkaline Phosphatase Total Protein Albumin 1.8 L TSH Free T4 Free T3 01/25/18 01/26/18 01/26/18 17:41 00:02 01:32 WBC 6.5 RBC 2.63 L Hgb 7.5 L Hct 22.8 L MCV 86.8 MCH 28.7 MCHC 33.0 RDW 16.0 Plt Count 310 MPV 8.9 Neut % (Auto) Lymph % (Auto) [place] % (Auto) Eos % (Auto) Baso % (Auto) Neut # (Auto) Lymph # (Auto) [place] # (Auto) Eos # (Auto) Baso # (Auto) WBC Differential Differential Comment Sodium Potassium Chloride Carbon Dioxide Anion Gap BUN Creatinine Estimated GFR POC Glucose 162 H 138 H Random Glucose Lactic Acid Calcium Phosphorus Magnesium Total Bilirubin AST ALT Alkaline Phosphatase Total Protein Albumin TSH Free T4 Free T3 01/26/18 01/26/18 01/26/18 01:32 05:16 05:45 WBC 5.8 RBC 2.69 L Hgb 7.6 L Hct 23.3 L MCV 86.4 MCH 28.3 MCHC 32.7 RDW 16.2 Plt Count 305 MPV 8.8 Neut % (Auto) 68.2 Lymph % (Auto) 16.8 [place] % (Auto) 11.5 H Eos % (Auto) 2.3 Baso % (Auto) 1.2 Neut # (Auto) 3.9 Lymph # (Auto) 1.0 [place] # (Auto) 0.7 Eos # (Auto) 0.1 Baso # (Auto) 0.1 WBC Differential . Differential Comment Auto diff final Sodium 136 Potassium 4.4 Chloride 99 Carbon Dioxide 22.7 Anion Gap 14 BUN 123 H Creatinine 5.41 H Estimated GFR 9 L POC Glucose 156 H Random Glucose 131 H Lactic Acid Calcium 8.5 Phosphorus Magnesium Total Bilirubin 0.2 AST 44 H ALT 9 L Alkaline Phosphatase 103 Total Protein 6.3 L Albumin 1.8 L TSH Free T4 Free T3 01/26/18 01/26/18 01/26/18 05:45 12:36 13:30 WBC RBC Hgb Hct MCV MCH MCHC RDW Plt Count MPV Neut % (Auto) Lymph % (Auto) [place] % (Auto) Eos % (Auto) Baso % (Auto) Neut # (Auto) Lymph # (Auto) [place] # (Auto) Eos # (Auto) Baso # (Auto) WBC Differential Differential Comment Sodium 136 Potassium 4.5 Chloride 98 Carbon Dioxide 22.0 Anion Gap 16 H BUN 126 H Creatinine 5.38 H Estimated GFR 9 L POC Glucose 131 H Random Glucose 116 H Lactic Acid 0.9 Calcium 9.0 Phosphorus 6.2 H Magnesium 2.6 H Total Bilirubin 0.3 AST 39 H ALT 10 Alkaline Phosphatase 111 Total Protein 6.6 Albumin 1.7 L TSH Free T4 Free T3 01/27/18 01/27/18 03:33 03:33 WBC 6.1 RBC 2.79 L Hgb 8.0 L Hct 24.1 L MCV 86.3 MCH 28.5 MCHC 33.0 RDW 15.8 Plt Count 354 MPV 8.8 Neut % (Auto) 68.5 Lymph % (Auto) 17.3 [place] % (Auto) 10.9 H Eos % (Auto) 2.1 Baso % (Auto) 1.2 Neut # (Auto) 4.2 Lymph # (Auto) 1.1 [place] # (Auto) 0.7 Eos # (Auto) 0.1 Baso # (Auto) 0.1 WBC Differential . Differential Comment Auto diff final Sodium 135 L Potassium 4.8 Chloride 99 Carbon Dioxide 22.1 Anion Gap 14 BUN 125 H Creatinine 5.43 H Estimated GFR 9 L POC Glucose Random Glucose 103 Lactic Acid Calcium 8.6 Phosphorus 6.4 H Magnesium 2.6 H Total Bilirubin 0.2 AST 39 H ALT 10 Alkaline Phosphatase 111 Total Protein 7.1 Albumin 1.9 L TSH 5.140 H Free T4 1.31 Free T3 1.56 L Result Diagrams: 01/28/18 04:46 01/28/18 04:46 Imaging: Hip X-Ray 01/23/18 00:00 CONCLUSION: Good position and alignment on this postoperative study. Chest X-Ray 01/27/18 06:00 CONCLUSION: 1. Cardiomegaly with pulmonary vascular congestion. 2. Worsening bilateral pleural effusions with associated airspace disease in the lower lung zones. Procedures: 01/10/2018-right hip bipolar hemiarthroplasty 01/14/18-Intubation Assessment and Plan - Disease Oriented Problem List (1) Acute hypoxemic respiratory failure (2) Embolic infarction (3) Hypertension (4) Nonsustained ventricular tachycardia (5) Dementia (6) Hip fracture, right (7) History of CVA (cerebrovascular accident) - Symptom Scale (1) Shortness of breath 0-10 Scale: Unable to quantify (Patient intubated status post right hip surgery ) (2) Pain 0-10 Scale: Unable to quantify (s/p right hip surgery. Intubated) (3) Debility 0-10 Scale: Unable to quantify (Progressive.) Pertinent Non-Medical Issues: Psychosocial:Patient was raised in [place], [place]. 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 Patient worked 2 jobs at a time most of her life. Patient has been twice. Her first is and she is from her second . Patient has 9 living adult children. Spiritual:Patient is a Nondenominational Legal:Patient never completed advance directives. She is . Ethical issues impacting care:None identified at this time. Important Contacts: Carmen Noel(daughter) [phone] Willing to serve as Health care proxy (Lives with patient) Kunal Pedro(son/eldest) [phone] in [place] Opted out-Currently in town supporting his sister Carmen Noel(son) [phone] -Unreachable-Multiple telephone call attempts TipShreyas Pedro(daughter) - no available phone number lives in [place], [place] Scotty Pedro(son) lives in [place], [place] . No available number Isiahkayley Pedro (son) [phone]-Opted out Tae Noel(daughter) [phone]-Opted out Leti (daughter) [phone] -Opted out Anthonykayla Pedro (son) [phone]-Opted out Prognosis: Ms. Noel is a 68 years old female with past medical history of chronic kidney disease, dementia, hypertension, peripheral vascular disease, history of CVA, hepatitis C and monoclonal gammopathy. Patient was brought to the emergency room by family member on 01/09/18 for further evaluation of pain in his right hip and back following a witnessed mechanical fall. Hip and pelvis x-ray revealed right femoral neck fracture and she underwent right hip bipolar hemiarthroplasty on 01/10/18. Clinical course complicated with lethargy, dysphagia, worsening renal function and inability to participate in physical therapy due to cognitive impairment. Given ongoing multiple comorbidities, patient remains at high risk for further complications, deterioration and decline. Code Status: No Code DNR Plan: PLAN: Legal decision maker:Patient has dementia and is not able to participate in medical decision making and is most likely able to regain that capacity. Patient never completed advance directives. Patient is and has 9 adult children whom according to [place] Statute would serve as her health care proxys. 5 of patient`s children have opted out of decision making and 3 other children were not able to be reached. Patient's daughter Carmen Noel is currently serving as health care proxy at this time. Goals: Aggressive short of no code CODE STATUS: No Code- DNR/DNI Telephone conversation with patient`s daughter Carmen Noel (Health care proxy). Inquired if she has had time to discuss further with her family regarding patient`s goals of care. Expressed concern that patient is not neurologically improving to a point where she can be safely medically extubated. Patient`s daughter hesitant to answer and mentioned that some of her family members have been reporting to her that patient is responding to them. Explained to patient` s daughter that patient is not responsive enough to stay awake for a long time or follow simple commands, or even to show that she can be able to protect her air way. Asked patient`s daughter if family wants to continue with aggressive treatment despite encephalopathy, worsening renal function and other ongoing comorbidities. Explained to her that aggressive treatment would include tracheostomy and PEG tube placement and Carmen stated that with the support of her family she does not want patient to have a tracheostomy and PEG placed. Patient`s daughter fixated on how many days patient can have ETT in. Discussed option of compassionately withdrawing patient from life support and transitioning patient to comfort care only. Patient`s daughter is still discussing further with the rest of the family. Expressed to her the importance of discussing that matter because patient has had ETT for a significant amount of time and is not showing improvement neurologically. Updated her that patient was bradycardic and hypothermic this morning. Patient`s daughter requested to be notified of such events so that she can relay them to other family members and hopefully that may help them understand how critical patient is. SYMPTOMS: * Pain: Patient recently had a mechanical fall. Hip and pelvis x-ray revealed right femoral neck fracture and she underwent right hip bipolar hemiarthroplasty. Patient currently has acetaminophen 650 mg every 4 prn. Patient appears not to be in pain. Continue to monitor for pain. * Shortness of breath: Intubated on 01/14/18 due to increased lethargy, worsening respiratory failure. Sputum culture collected on 01/14+ for ESBL E. coli. On antibiotics and DuoNeb's every 6 hours ATC and prn. On CPA trials but showing no neurological improvement. Family does not want to proceed with tracheostomy and PEG placement * Debility: Progressive. Patient has history of dementia.Per family patient has been progressively declining in the past few months. Patient recently fell and underwent hip surgery. Physical therapy, speech therapy consulted. Given patient's cognitive limitation and multiple embolic strokes, she most likely will not be able to participate in rehabilitation. Palliative care will continue to follow the patient during hospital course as condition evolves, to assist patient/decision-maker with understanding of their medical conditions, weighing benefits/burdens of treatment options, for clarification of goals of treatment. Additionally will assist with any symptoms of palliative concern Attestation Attestation: To help prompt me to consider important information that might be impacting today's encounter and assessment, information from prior notes written by myself or my colleagues may have been "brought forward" into today's note. My signature on this note, however, is an attestation that I personally performed the exam, history, and/or decision-making noted today, and, unless otherwise indicated, the interactions with patient, family, and staff as well as the review of records all occurred today. I also attest that the listed assessment and stated plan reflect my best clinical judgment today based on the combination of historical information, prior notes, and today's exam/ interactions. When time spent is documented, it refers only to time spent today by the signer, or if indicated, combined time spent today by collaborating physician/nurse practitioner.
[2018-01-27] MEDS: Ferrrous Sulfate 300 MG/5 ML UDC NG/OG SCH ×2 (15:49→20:59)
[2018-01-27] MEDS: Chlorhexidine 0.12% Oral Kit 15 ML UDC SWISH-SPIT SCH ×2 (15:49→20:58)
--- NOTE | 2018-01-27 16:19 | P.PNNP ---
Subjective Interval history: Remains on ventilator condition unchanged. Creatinine at 5.43 <Emani Avery - Last Filed: 01/27/18 16:17> Physical Exam Vital signs: Vital Signs 01/26/18 16:33 01/26/18 18:00 01/26/18 20:00 Temperature 97.3 F L Pulse Rate 49 L 53 L 89 Respiratory Rate 23 16 Blood Pressure 117/80 Pulse Oximetry 89 L 96 01/26/18 20:22 01/26/18 22:00 01/26/18 23:38 Temperature Pulse Rate 62 64 66 Respiratory Rate 16 18 Blood Pressure Pulse Oximetry 94 L 01/27/18 00:00 01/27/18 00:04 01/27/18 02:00 Temperature 99.5 F Pulse Rate 67 76 Respiratory Rate 15 17 Blood Pressure 131/72 Pulse Oximetry 94 L 95 01/27/18 03:33 01/27/18 03:35 01/27/18 04:00 Temperature 98.7 F Pulse Rate 78 73 Respiratory Rate 18 15 15 Blood Pressure 151/86 H Pulse Oximetry 98 96 01/27/18 06:00 01/27/18 07:58 01/27/18 08:00 Temperature 98 F Pulse Rate 69 64 76 Respiratory Rate 17 Blood Pressure 140/80 Pulse Oximetry 90 L 94 L 01/27/18 10:00 01/27/18 11:17 01/27/18 12:00 Temperature 99.2 F Pulse Rate 76 75 76 Respiratory Rate 19 18 Blood Pressure 147/76 H Pulse Oximetry 94 L 97 01/27/18 14:00 Temperature Pulse Rate 76 Respiratory Rate Blood Pressure Pulse Oximetry Intake & Output 01/26/18 01/27/18 01/27/18 18:59 06:59 18:59 Intake Total 522 / 522 430 / 430 Output Total 450 / 450 400 / 400 Balance 72 / 72 30 / 30 Weight 80.1 kg Intake: IV 50 / 50 INVanz Inj 500 MG In NS Inj 50 50 / 50 ML @ 100 mls/hr IV.SIG Q24H [facility] Rx#:[id number] Tube Feeding 442 / 442 370 / 370 Tube Irrigant 30 / 30 60 / 60 Output: Urine Amount (Catheter) 450 / 450 400 / 400 Indwelling Urethral Catheter 450 / 450 400 / 400 Other: Date of Last Bowel Movement 01/24/18 01/24/18 01/24/18 - Constitutional no acute distress - Routine HEENT Exam Head: Present: normocephalic ENT: Present: mucous membranes dry - Routine Neck Exam Present: supple. Absent: JVD - Routine Respiratory Exam Present: patient mechanically ventilated - Routine Cardiovascular Exam Present: RRR - Routine Abdominal Exam Present: soft, normoactive bowel sounds - Routine Skin Exam Present: dry, warm - Urinary Catheter Management Indwelling Urethral Catheter Cath placed during this visit: yes Urethral indwelling: Yes Reason for continuing: Other continuation reason Insertion date: 02/09/18 Insertion time: 12:15 <Emani Avery - Last Filed: 01/27/18 16:17> Vital signs: Vital Signs 01/26/18 22:00 01/26/18 23:38 01/27/18 00:00 Temperature 99.5 F Pulse Rate 64 66 67 Respiratory Rate 18 15 Blood Pressure 131/72 Pulse Oximetry 94 L 01/27/18 00:04 01/27/18 02:00 01/27/18 03:33 Temperature Pulse Rate 76 78 Respiratory Rate 17 18 Blood Pressure Pulse Oximetry 95 01/27/18 03:35 01/27/18 04:00 01/27/18 06:00 Temperature 98.7 F Pulse Rate 73 69 Respiratory Rate 15 15 Blood Pressure 151/86 H Pulse Oximetry 98 96 01/27/18 07:58 01/27/18 08:00 01/27/18 10:00 Temperature 98 F Pulse Rate 64 76 76 Respiratory Rate 17 Blood Pressure 140/80 Pulse Oximetry 90 L 94 L 01/27/18 11:17 01/27/18 12:00 01/27/18 14:00 Temperature 99.2 F Pulse Rate 75 76 76 Respiratory Rate 19 18 Blood Pressure 147/76 H Pulse Oximetry 94 L 97 01/27/18 16:00 01/27/18 16:19 01/27/18 18:00 Temperature 99.2 F Pulse Rate 74 74 74 Respiratory Rate 17 Blood Pressure 144/79 H Pulse Oximetry 98 95 Intake & Output 01/27/18 01/27/18 01/28/18 06:59 18:59 06:59 Intake Total 430 / 430 620 / 620 Output Total 400 / 400 400 / 400 Balance 30 / 30 220 / 220 Weight 80.1 kg Intake: Tube Feeding 370 / 370 420 / 420 Tube Irrigant 60 / 60 100 / 100 Water Bolus Amount 100 / 100 Output: Urine Amount (Catheter) 400 / 400 400 / 400 Indwelling Urethral Catheter 400 / 400 400 / 400 Other: Date of Last Bowel Movement 01/24/18 01/24/18 - Urinary Catheter Management Indwelling Urethral Catheter Cath placed during this visit: no <Norberto Sanchez - Last Filed: 01/27/18 21:11> Assessment and Plan - Assessment (1) Acute kidney injury Code(s): N17.9 - Acute kidney failure, unspecified Status: Acute Plan: kidney ultrasound showed echogenic kidney. Creatinine at 5.48 - > 5.3 -> 5.38 ->5.43 Urinary output 850cc/ 24 hours Patient is a poor candidate for hemodialysis Avoid nephrotoxins French catheter Will continue to monitor urinary output and BMP. No acute need for dialysis at this time Continue to follow goals of care with patient's family <Emani Avery - Last Filed: 01/27/18 16:17> - Assessment (1) Acute kidney injury Code(s): N17.9 - Acute kidney failure, unspecified Status: Acute - Attending Attestation Patient seen and examined, agree with above. Creatinine almost same, non oliguric. No improvement in the encephalopathy. <Norberto Sanchez - Last Filed: 01/27/18 21:11>
[2018-01-28] MEDS: Oral Hygiene Kit OROPHARYNG SCH ×3 (05:05→16:33)
[2018-01-28] MEDS: NIFEdipine 10 MG Capsule NG/OG SCH ×3 (05:05→21:10)
[2018-01-28] MEDS: Artificial Tears Opth Drops 15 ML Bottle EACH EYE SCH ×3 (05:05→21:09)
[2018-01-28 06:02] LABS: Baso # (Auto) 0.1 th/mm3 (0.0-0.2); Baso % (Auto) 1.2 % (0.0-2.0); Eos # (Auto) 0.1 th/mm3 (0.0-0.4); Eos % (Auto) 2.2 % (0.0-4.0); Hematocrit 21.8 % (35.0-46.0); Hemoglobin 7.1 gm/dL (11.6-15.3); Lymph # (Auto) 1.3 th/mm3 (1.0-4.8); Lymph % (Auto) 22.2 % (9.0-44.0); Mean Corpuscular HGB Conc 32.7 % (32.0-36.0); Mean Corpuscular Hemoglobin 28.4 pg (27.0-34.0); Mean Platelet Volume 8.9 fL (7.0-11.0); Mono # (Auto) 0.7 th/mm3 (0.0-0.9); Mono % (Auto) 12.9 % (0.0-8.0); Neut # (Auto) 3.6 th/mm3 (1.8-7.7); Neut % (Auto) 61.5 % (16.0-70.0); Platelet Count 341 th/mm3 (150-450); Red Cell Distribution Width 15.9 % (11.6-17.2); White Blood Count 5.8 th/mm3 (4.0-11.0)
[2018-01-28 06:26] LABS: Albumin 1.8 g/dL (3.4-5.0); Calcium 8.6 mg/dL (8.5-10.1); Carbon Dioxide 22.4 meq/L (21.0-32.0); Phosphorus 6.3 mg/dL (2.5-4.9); Potassium 4.6 meq/L (3.5-5.1)
[2018-01-28] MEDS: Ferrrous Sulfate 300 MG/5 ML UDC NG/OG SCH ×2 (08:24→21:07)
[2018-01-28] MEDS: Docusate Sodium Liq 100 MG/10 ML UDC NG/OG SCH ×2 (08:24→21:07)
[2018-01-28] MEDS: Heparin - SQ 10,000 UNITS/ML Vial SQ SCH ×2 (08:25→21:10)
[2018-01-28] MEDS: Chlorhexidine 0.12% Oral Kit 15 ML UDC SWISH-SPIT SCH ×2 (08:25→21:09)
--- NOTE | 2018-01-28 10:03 | P.PNNP ---
Subjective Interval history: On ventilator FiO2 at 45 %. Continues to be encephalopathic. Creatinine is stable at 5.35. <BennieEmani - Last Filed: 01/28/18 10:00> Physical Exam Vital signs: Vital Signs 01/27/18 11:17 01/27/18 12:00 01/27/18 14:00 Temperature 99.2 F Pulse Rate 75 76 76 Respiratory Rate 19 18 Blood Pressure 147/76 H Pulse Oximetry 94 L 97 01/27/18 16:00 01/27/18 16:19 01/27/18 18:00 Temperature 99.2 F Pulse Rate 74 74 74 Respiratory Rate 17 Blood Pressure 144/79 H Pulse Oximetry 98 95 01/27/18 20:00 01/27/18 20:03 01/27/18 20:05 Temperature 99.0 F Pulse Rate 74 75 Respiratory Rate 20 20 16 Blood Pressure 142/83 H Pulse Oximetry 93 L 93 L 01/27/18 22:00 01/28/18 00:00 01/28/18 00:03 Temperature 99.0 F Pulse Rate 64 72 75 Respiratory Rate 15 16 Blood Pressure 133/68 Pulse Oximetry 98 01/28/18 00:28 01/28/18 02:00 01/28/18 03:52 Temperature Pulse Rate 79 75 Respiratory Rate 17 14 Blood Pressure Pulse Oximetry 94 L 01/28/18 04:00 01/28/18 04:10 01/28/18 06:00 Temperature 98.2 F Pulse Rate 78 64 Respiratory Rate 15 15 Blood Pressure 163/83 H Pulse Oximetry 94 L 100 01/28/18 08:00 01/28/18 09:29 Temperature 98.1 F Pulse Rate 75 76 Respiratory Rate 15 18 Blood Pressure 135/71 Pulse Oximetry 98 99 Intake & Output 01/27/18 01/28/18 01/28/18 18:59 06:59 18:59 Intake Total 620 / 620 760 / 760 Output Total 400 / 400 550 / 550 Balance 220 / 220 210 / 210 Weight 80.4 kg Intake: Tube Feeding 420 / 420 440 / 440 Tube Irrigant 100 / 100 120 / 120 Water Bolus Amount 100 / 100 200 / 200 Output: Urine Amount (Catheter) 400 / 400 550 / 550 Indwelling Urethral Catheter 400 / 400 550 / 550 Other: Date of Last Bowel Movement 01/24/18 01/24/18 01/24/18 # Bowel Movements 0 - Constitutional no acute distress - Routine HEENT Exam Head: Present: normocephalic ENT: Present: mucous membranes dry - Routine Neck Exam Absent: JVD - Routine Respiratory Exam Present: patient mechanically ventilated. Absent: rales, rhonchi - Routine Cardiovascular Exam Present: RRR - Routine Abdominal Exam Present: soft, normoactive bowel sounds - Routine Extremities Exam Present: edema - Routine Skin Exam Present: dry, warm - Urinary Catheter Management Indwelling Urethral Catheter Cath placed during this visit: yes Urethral indwelling: Yes Reason for continuing: Hourly intake/output Insertion date: 02/09/18 Insertion time: 12:15 <Emani Avery - Last Filed: 01/28/18 10:00> Vital signs: Vital Signs 01/27/18 22:00 01/28/18 00:00 01/28/18 00:03 Temperature 99.0 F Pulse Rate 64 72 75 Respiratory Rate 15 16 Blood Pressure 133/68 Pulse Oximetry 98 01/28/18 00:28 01/28/18 02:00 01/28/18 03:52 Temperature Pulse Rate 79 75 Respiratory Rate 17 14 Blood Pressure Pulse Oximetry 94 L 01/28/18 04:00 01/28/18 04:10 01/28/18 06:00 Temperature 98.2 F Pulse Rate 78 64 Respiratory Rate 15 15 Blood Pressure 163/83 H Pulse Oximetry 94 L 100 01/28/18 08:00 01/28/18 09:29 01/28/18 10:00 Temperature 98.1 F Pulse Rate 75 76 70 Respiratory Rate 15 18 Blood Pressure 135/71 Pulse Oximetry 98 99 01/28/18 11:28 01/28/18 12:00 01/28/18 14:00 Temperature 98.4 F Pulse Rate 79 68 70 Respiratory Rate 19 24 Blood Pressure 150/89 H Pulse Oximetry 98 99 01/28/18 16:00 01/28/18 16:42 01/28/18 18:00 Temperature 98.2 F Pulse Rate 75 74 69 Respiratory Rate 21 12 Blood Pressure 149/77 H Pulse Oximetry 99 100 Intake & Output 01/28/18 01/28/18 01/29/18 06:59 18:59 06:59 Intake Total 760 / 760 450 / 450 Output Total 550 / 550 450 / 450 Balance 210 / 210 0 / 0 Weight 80.4 kg Intake: Tube Feeding 440 / 440 450 / 450 Tube Irrigant 120 / 120 Water Bolus Amount 200 / 200 Output: Urine Amount (Catheter) 550 / 550 450 / 450 Indwelling Urethral Catheter 550 / 550 450 / 450 Other: Date of Last Bowel Movement 01/24/18 01/24/18 # Bowel Movements 0 0 - Urinary Catheter Management Indwelling Urethral Catheter Cath placed during this visit: no <Norberto Sanchez - Last Filed: 01/28/18 21:34> Assessment and Plan - Assessment (1) Acute kidney injury Code(s): N17.9 - Acute kidney failure, unspecified Status: Acute Plan: kidney ultrasound showed echogenic kidney. Creatinine at 5.48 - > 5.3 -> 5.38 ->5.43 ->5.35 Urinary output 850cc/ 24 hours Patient is a poor candidate for hemodialysis Avoid nephrotoxins French catheter Will continue to monitor urinary output and BMP. No acute need for dialysis at this time Continue to follow goals of care with patient's family <Emani Avery - Last Filed: 01/28/18 10:00> - Assessment (1) Acute kidney injury Code(s): N17.9 - Acute kidney failure, unspecified Status: Acute - Attending Attestation Patient seen and examine, agree with above. Creatinine is almost same, K is normal. Non oliguric. Family to decide about possible with drawl of treatment. <Norberto Sanchez - Last Filed: 01/28/18 21:34>
--- NOTE | 2018-01-28 10:35 | P.PNCC ---
Subjective Subjective Remarks/Hospital Course: Patient is a 72-year-old female with history of chronic kidney disease, dementia , hepatitis C, hypertension, monoclonal gammopathy who was admitted to the hospitalist service after she sustained right femoral neck fracture from a fall , she underwent right hip hemiarthroplasty 01/10/18. Patient has stage IV kidney disease and was admitted with BUN 78 creatinine of 4. Patient had been declining since admission was lethargic since yesterday. A CT of the head was negative. Became more unresponsive and unarousable since today afternoon. BUN/ creatinine today 104/5.74. Due to worsening mental status she was brought to the ICU and critical care medicine was consulted. Palliative care was consulted due to advanced dementia is worsening chronic kidney disease and encephalopathy but family wants aggressive care. I evaluated the patient in the ICU, patient is completely unresponsive, not waking up to painful stimuli. Gurgling breath sounds not protecting airway. Emergently intubated and placed on mechanical ventilation. Suctioned out large amount of moderate white to yellow thick secretions from the glottic opening. Patient probably has pneumonia based on secretions and bilateral alveolar infiltrates on chest x- ray. Worsening mental status most likely secondary to metabolic encephalopathy , antibiotics broadened to Zosyn and vancomycin. SUBJ 01/15: Remains intubated critically ill. BUN/creatinine remains elevated at 109/5.7. Chest x-ray shows persistent bilateral left more than right infiltrates. Patient remains encephalopathy go for sedation. Multiple nonsustained episodes of ventricular tachycardia. Had extensive discussion with daughter at the bedside and son over the phone. I encouraged him to consider DNR status given patient's dementia, worsening renal failure, cardiac dysrhythmias and sepsis now 01/16: Patient remains intubated off sedation for 24 hours. Remains unresponsive very slight withdrawal to pain. Sputum culture growing GNR. BUN creatinine slightly improved 97/5.43. Urine output approximately 800 mL in 24 hours. Hb 6.8, 1U PRBC ordered. Updated son at bedside 01/17: Remains severely encephalopathic. MRI brain yesterday shows multiple embolic lacunar infarct involving frontal lobes, right basal ganglia and left temporal occipital lobe. Severe diffuse periventricular and subcortical white matter small vessel ischemic changes are again noted. Pontine ischemic changes are also noted. Also diffuse probable amyloid angiopathy or hypertensive microhemorrhages, scattered old lacunar infarcts. Neurology had been consulted. Sputum culture growing ESBL E. coli Zosyn DC'd and ertapenem started 630: Remains severely encephalopathy. Continues to have no spontaneous eye opening. Renal function worsening. BUN/cr 111/5.7. Urine output 1 L in 24 hours 01/19: Remains intubated off all sedation no improvement in neuro status intermittently moves extremities spontaneously. Did not follow commands. Diminishing urine output 500 mL in 24 hours 01/20: No change in clinical condition remains unresponsive very weak withdrawal to pain. Urine output 750 mL in 24 hours, no acute indication for hemodialysis. Subjective: 01/21 [facility] palliative care met with family today and they elected to change CODE STATUS to DO NOT RESUSCITATE. They indicated they would not want trach and PEG , needing time to discuss. I reached out to Carmen and she says she has no further questions at this time. 01/22 No neuro change. Family indicates no trach/peg. Awaiting decision regarding withdrawal 01/23: Remains encephalopathic, orally intubated on mechanical ventilation. Not requiring any sedation. Tolerating tube feeds. 01/24: Remains encephalopathic, orally intubated on mechanical ventilation. Tolerating tube feeds. Family deciding regarding goals of therapy and possible de-escalation of therapy. 01/25: Afebrile. Gaze to the right. Withdraws to pain 4. Tolerating tube feeds. Positive BM. SUBJECTIVE: 01/26: Afebrile. Bradycardic this a.m. Slightly breathing over the ventilator at time. He does have gaze to the right. Withdraws to pain 4. Tolerating tube feeds. Neurologically unchanged. 01/27: No change in neurological status. Rarely breathes over vent. Unable to extubate. 01/28: No improvement in neurologic function. Respiratory effort and stamina not sufficient to allow for extubation. Renal function continues to deteriorate. Objective Vital Signs / I&O: Vital Signs 01/27/18 11:17 01/27/18 12:00 01/27/18 14:00 Temperature 99.2 F Pulse Rate 75 76 76 Respiratory Rate 19 18 Blood Pressure 147/76 H Pulse Oximetry 94 L 97 01/27/18 16:00 01/27/18 16:19 01/27/18 18:00 Temperature 99.2 F Pulse Rate 74 74 74 Respiratory Rate 17 Blood Pressure 144/79 H Pulse Oximetry 98 95 01/27/18 20:00 01/27/18 20:03 01/27/18 20:05 Temperature 99.0 F Pulse Rate 74 75 Respiratory Rate 20 20 16 Blood Pressure 142/83 H Pulse Oximetry 93 L 93 L 01/27/18 22:00 01/28/18 00:00 01/28/18 00:03 Temperature 99.0 F Pulse Rate 64 72 75 Respiratory Rate 15 16 Blood Pressure 133/68 Pulse Oximetry 98 01/28/18 00:28 01/28/18 02:00 01/28/18 03:52 Temperature Pulse Rate 79 75 Respiratory Rate 17 14 Blood Pressure Pulse Oximetry 94 L 01/28/18 04:00 01/28/18 04:10 01/28/18 06:00 Temperature 98.2 F Pulse Rate 78 64 Respiratory Rate 15 15 Blood Pressure 163/83 H Pulse Oximetry 94 L 100 01/28/18 08:00 01/28/18 09:29 Temperature 98.1 F Pulse Rate 75 76 Respiratory Rate 15 18 Blood Pressure 135/71 Pulse Oximetry 98 99 Intake & Output 01/27/18 01/28/18 01/28/18 18:59 06:59 18:59 Intake Total 620 / 620 760 / 760 Output Total 400 / 400 550 / 550 Balance 220 / 220 210 / 210 Weight 80.4 kg Intake: Tube Feeding 420 / 420 440 / 440 Tube Irrigant 100 / 100 120 / 120 Water Bolus Amount 100 / 100 200 / 200 Output: Urine Amount (Catheter) 400 / 400 550 / 550 Indwelling Urethral Catheter 400 / 400 550 / 550 Other: Date of Last Bowel Movement 01/24/18 01/24/18 01/24/18 # Bowel Movements 0 Result Diagrams: 01/28/18 04:46 01/28/18 04:46 Objective Remarks: GENERAL: -[place] female lying in bed, off all sedation, remains encephalopathic SKIN: No rashes, ecchymoses or lesions. HEAD: Atraumatic. Normocephalic. EYES: Pupils equal round. No spontaneous eye opening ENT: Nose without bleeding, Edentulous. Orotracheally intubated NECK: Trachea midline. CARDIOVASCULAR: S1 S2 normal rhythm without murmurs, gallops, or rubs. No JVD. RESPIRATORY: Diminished breath sounds bases with scattered rhonchi bilaterally. Acceptable bilateral air movement. GASTROINTESTINAL: Abdomen soft, nondistended. Nontender. No guarding, bowel sounds present. MUSCULOSKELETAL: Knee immobilizer in place right knee. Distal circulation normal. NEUROLOGICAL: Patient remains unresponsive off sedation, R gaze preference with horizontal nystagmus. Slight withdrawal of extremities noted with painful stimuli, no eye opening. No change from last 24 hours. Assessment and Plan - Assessment and Plan Plan: A/P Assessment and Plan ASSESSMENT/PLAN: NEURO: Acute metabolic encephalopathy Multiple scattered embolic strokes, pontine ischemia Probable hypertensive microhemorrhages versus amyloid angiopathy Dementia -MRI Brain 01/17/18: Multiple embolic lacunar infarct involving frontal lobes, right basal ganglia and left temporal occipital lobe. Severe diffuse periventricular and subcortical white matter small vessel ischemic changes. Pontine ischemic changes noted. Probable amyloid angiopathy or hypertensive microhemorrhages, scattered old lacunar infarcts. -Neurology Dr. Hutr, would support transition to comfort if family elects. -Continue aspirin daily, unable to anticoagulate due to anemia requiring transfusion. Continue heparin 5000 units subcu every 12 -Encephalopathy most likely secondary to multiple embolic strokes, sepsis -CT of the head negative 01/13, EEG no seizures -Not on any sedation -Carotid Doppler no significant stenosis RESP: Acute hypoxemic respiratory failure HCAP/ESBL E Coli -Emergently intubated and placed on mechanical ventilation 01/14. VENT DAY 8 -Daily spontaneous breathing trials but mental status will not permit extubation -DuoNeb every 6 hours scheduled and as needed -See ID for ABX -Palliative care discussed with family regarding tracheostomy and PEG tube. It appears they do not want trach and PEG. They are needing more time but are discussing transition to comfort measures. CV: Nonsustained ventricular tachycardia Hypertension -Metoprolol IV as needed for PVCs/nonsustained V. tach -Serial cardiac enzymes. Prev Echo 2016, preserved LV ejection fraction, moderate LVH -Continue carvedilol continue oral hydralazine, nicardipine GI: -Suplena tube feeding at 40 mL/h per nutrition recommendations. -IV famotidine for GI prophylaxis : Acute on chronic kidney disease -Monitor renal function closely. French catheter. Nephrology following Dr. Sanchez Agree with nephrology, patient is a poor candidate for hemodialysis. ID: Severe sepsis Healthcare associated pneumonia /ESBL E. coli on culture 01/14 -ESBL isolation HEME: Anemia requiring transfusion -Monitor CBC, CMP, coags MSK: Right hip fracture status post hemiarthroplasty -Post op management per Ortho. PT ENDO: -Watch closely for hyperkalemia -Careful electrolyte replacement PROPH: -Bilateral lower extremity SCDs. Sq Heparin 5000 sq q12. IV famotidine 20 mg every 12 LINES: -Utilize peripheral IVs, CODE STATUS DO NOT RESUSCITATE Overall impression: MRI is consistent with physical exam. Remains ventilator dependent and now in renal failure. I highly recommend against dialysis. Patient's short-term prognosis is very poor. Meaningful neurologic recovery is highly unlikely. Comorbid conditions are leading toward permanent mechanical ventilation and hemodialysis.
--- NOTE | 2018-01-28 10:47 | P.PNPAL ---
Reason for Visit Reason for visit: a. To assist with evaluation and management of symptoms including: Shortness of breath, pain, debility b. To assist medical decision maker(s) with: better understanding of current medical conditions; weighing benefits/burdens of medical treatment options; making medical treatment decisions. Subjective Subjective/Interval History: Follow-up medically necessary for further clarification of goals of care. Patient seen and examined in her room on [facility]. She remains intubated on mechanical ventilation. Patient is currently on CPAP trial, vent settings 5/10/ 45%. Patient remains encephalopathic, not following simple commands, no purposeful movements noted and not opening eyes during examination. Withdraws to noxious stimulation weakly with all 4 extremities. Laboratory workup today revealing WBC 5.8, Hgb 7.1, Hct 21.8, Renal function stable with a creatinine of 5.35 today and urinary output of 850 in the last 24 hrs. Case discussed with bedside RN Met outside patient`s room with soren Morales at 1340hrs. Notified patient`s daughter Carmen that patient has had the endotracheal tube for almost 2 weeks of which she was aware. Patient`s daughter reiterates that she does not want patient to have a tracheostomy and a PEG tube. Explained further to her that ETT is supposed to be temporary and patient cannot continue to have it for a prolonged time. Patient`s daughter mentioned that she has been talking to her siblings to make sure everyone is agreeable to proceeding with compassionately withdrawing patient from life support and transitioning her to comfort measures only though hospice services. Patient`s lola Morales leaning towards compassionately withdrawing patient from life support on 01/30/18. Family/Friend Interactions: Met with patient`s lola Morales Advance Directives Living Will: Never completed Health Care Surrogate: Never completed Durable Power of Endoscopy Technician: Never completed Health Care Surrogate Name and Number: Prashant Noel [phone] Objective Vital Signs: Vital Signs 01/27/18 11:17 01/27/18 12:00 01/27/18 14:00 Temperature 99.2 F Pulse Rate 75 76 76 Respiratory Rate 19 18 Blood Pressure 147/76 H Pulse Oximetry 94 L 97 01/27/18 16:00 01/27/18 16:19 01/27/18 18:00 Temperature 99.2 F Pulse Rate 74 74 74 Respiratory Rate 17 Blood Pressure 144/79 H Pulse Oximetry 98 95 01/27/18 20:00 01/27/18 20:03 01/27/18 20:05 Temperature 99.0 F Pulse Rate 74 75 Respiratory Rate 20 20 16 Blood Pressure 142/83 H Pulse Oximetry 93 L 93 L 01/27/18 22:00 01/28/18 00:00 01/28/18 00:03 Temperature 99.0 F Pulse Rate 64 72 75 Respiratory Rate 15 16 Blood Pressure 133/68 Pulse Oximetry 98 01/28/18 00:28 01/28/18 02:00 01/28/18 03:52 Temperature Pulse Rate 79 75 Respiratory Rate 17 14 Blood Pressure Pulse Oximetry 94 L 01/28/18 04:00 01/28/18 04:10 01/28/18 06:00 Temperature 98.2 F Pulse Rate 78 64 Respiratory Rate 15 15 Blood Pressure 163/83 H Pulse Oximetry 94 L 100 01/28/18 08:00 01/28/18 09:29 Temperature 98.1 F Pulse Rate 75 76 Respiratory Rate 15 18 Blood Pressure 135/71 Pulse Oximetry 98 99 Intake & Output 01/27/18 01/28/18 01/28/18 18:59 06:59 18:59 Intake Total 620 / 620 760 / 760 Output Total 400 / 400 550 / 550 Balance 220 / 220 210 / 210 Weight 80.4 kg Intake: Tube Feeding 420 / 420 440 / 440 Tube Irrigant 100 / 100 120 / 120 Water Bolus Amount 100 / 100 200 / 200 Output: Urine Amount (Catheter) 400 / 400 550 / 550 Indwelling Urethral Catheter 400 / 400 550 / 550 Other: Date of Last Bowel Movement 01/24/18 01/24/18 01/24/18 # Bowel Movements 0 Physical Exam: Physical Exam CONSTITUTIONAL/GENERAL: elderly patient, intubated and encephalopathic TUBES/LINES/DRAINS:NC, PIV, FC, NGT, ETT, bilateral soft restraints SKIN: Wound to coccyx per RN, Healing surgical incision to right lateral hip. EYES: PERRLA. No eye opening. ENT: Nose without bleeding or purulent drainage.NGT with TF Nepro infusing at 40ml/hr CARDIOVASCULAR: S1, S2 normal, gallops, or rubs. No JVD. Peripheral pulses symmetric. RESPIRATORY/CHEST: Symmetric, unlabored respirations. Diminished breath sounds GASTROINTESTINAL: Abdomen soft, non-tender, nondistended. Bowel sounds present. TF infusing via NGT GENITOURINARY: Without palpable bladder distension. French catheter in place. MUSCULOSKELETAL: Extremities without clubbing, cyanosis. Edematous to all 4 extremities NEUROLOGICAL: intubated with no sedation, no eye opening,not following commands , only withdraws to noxious stimulation PSYCHIATRIC: Unable to assess. Diagnostic Tests Laboratory: Laboratory Results - last 72 hr 01/25/18 01/25/18 01/25/18 12:24 17:15 17:41 WBC RBC Hgb Hct MCV MCH MCHC RDW Plt Count MPV Neut % (Auto) Lymph % (Auto) [place] % (Auto) Eos % (Auto) Baso % (Auto) Neut # (Auto) Lymph # (Auto) [place] # (Auto) Eos # (Auto) Baso # (Auto) WBC Differential Differential Comment Sodium Potassium Chloride Carbon Dioxide Anion Gap BUN Creatinine Estimated GFR POC Glucose 137 H 162 H Random Glucose 149 H Lactic Acid Calcium Phosphorus Magnesium Total Bilirubin AST ALT Alkaline Phosphatase Total Protein Albumin TSH Free T4 Free T3 01/26/18 01/26/18 01/26/18 00:02 01:32 01:32 WBC 6.5 RBC 2.63 L Hgb 7.5 L Hct 22.8 L MCV 86.8 MCH 28.7 MCHC 33.0 RDW 16.0 Plt Count 310 MPV 8.9 Neut % (Auto) Lymph % (Auto) [place] % (Auto) Eos % (Auto) Baso % (Auto) Neut # (Auto) Lymph # (Auto) [place] # (Auto) Eos # (Auto) Baso # (Auto) WBC Differential Differential Comment Sodium 136 Potassium 4.4 Chloride 99 Carbon Dioxide 22.7 Anion Gap 14 BUN 123 H Creatinine 5.41 H Estimated GFR 9 L POC Glucose 138 H Random Glucose 131 H Lactic Acid Calcium 8.5 Phosphorus Magnesium Total Bilirubin 0.2 AST 44 H ALT 9 L Alkaline Phosphatase 103 Total Protein 6.3 L Albumin 1.8 L TSH Free T4 Free T3 01/26/18 01/26/18 01/26/18 05:16 05:45 05:45 WBC 5.8 RBC 2.69 L Hgb 7.6 L Hct 23.3 L MCV 86.4 MCH 28.3 MCHC 32.7 RDW 16.2 Plt Count 305 MPV 8.8 Neut % (Auto) 68.2 Lymph % (Auto) 16.8 [place] % (Auto) 11.5 H Eos % (Auto) 2.3 Baso % (Auto) 1.2 Neut # (Auto) 3.9 Lymph # (Auto) 1.0 [place] # (Auto) 0.7 Eos # (Auto) 0.1 Baso # (Auto) 0.1 WBC Differential . Differential Comment Auto diff final Sodium 136 Potassium 4.5 Chloride 98 Carbon Dioxide 22.0 Anion Gap 16 H BUN 126 H Creatinine 5.38 H Estimated GFR 9 L POC Glucose 156 H Random Glucose 116 H Lactic Acid Calcium 9.0 Phosphorus 6.2 H Magnesium 2.6 H Total Bilirubin 0.3 AST 39 H ALT 10 Alkaline Phosphatase 111 Total Protein 6.6 Albumin 1.7 L TSH Free T4 Free T3 01/26/18 01/26/18 01/27/18 12:36 13:30 03:33 WBC 6.1 RBC 2.79 L Hgb 8.0 L Hct 24.1 L MCV 86.3 MCH 28.5 MCHC 33.0 RDW 15.8 Plt Count 354 MPV 8.8 Neut % (Auto) 68.5 Lymph % (Auto) 17.3 [place] % (Auto) 10.9 H Eos % (Auto) 2.1 Baso % (Auto) 1.2 Neut # (Auto) 4.2 Lymph # (Auto) 1.1 [place] # (Auto) 0.7 Eos # (Auto) 0.1 Baso # (Auto) 0.1 WBC Differential . Differential Comment Auto diff final Sodium Potassium Chloride Carbon Dioxide Anion Gap BUN Creatinine Estimated GFR POC Glucose 131 H Random Glucose Lactic Acid 0.9 Calcium Phosphorus Magnesium Total Bilirubin AST ALT Alkaline Phosphatase Total Protein Albumin TSH Free T4 Free T3 01/27/18 01/28/18 01/28/18 03:33 04:46 04:46 WBC 5.8 RBC 2.50 L Hgb 7.1 L Hct 21.8 L MCV 87.0 MCH 28.4 MCHC 32.7 RDW 15.9 Plt Count 341 MPV 8.9 Neut % (Auto) 61.5 Lymph % (Auto) 22.2 [place] % (Auto) 12.9 H Eos % (Auto) 2.2 Baso % (Auto) 1.2 Neut # (Auto) 3.6 Lymph # (Auto) 1.3 [place] # (Auto) 0.7 Eos # (Auto) 0.1 Baso # (Auto) 0.1 WBC Differential . Differential Comment Auto diff final Sodium 135 L 136 Potassium 4.8 4.6 Chloride 99 99 Carbon Dioxide 22.1 22.4 Anion Gap 14 15 BUN 125 H 128 H Creatinine 5.43 H 5.35 H Estimated GFR 9 L 9 L POC Glucose Random Glucose 103 109 H Lactic Acid Calcium 8.6 8.6 Phosphorus 6.4 H 6.3 H Magnesium 2.6 H Total Bilirubin 0.2 AST 39 H ALT 10 Alkaline Phosphatase 111 Total Protein 7.1 Albumin 1.9 L 1.8 L TSH 5.140 H Free T4 1.31 Free T3 1.56 L Result Diagrams: 01/28/18 04:46 01/28/18 04:46 Imaging: Hip X-Ray 01/23/18 00:00 CONCLUSION: Good position and alignment on this postoperative study. Chest X-Ray 01/27/18 06:00 CONCLUSION: 1. Cardiomegaly with pulmonary vascular congestion. 2. Worsening bilateral pleural effusions with associated airspace disease in the lower lung zones. Procedures: 01/10/2018-right hip bipolar hemiarthroplasty 01/14/18-Intubation Assessment and Plan - Disease Oriented Problem List (1) Acute hypoxemic respiratory failure (2) Embolic infarction (3) Hypertension (4) Nonsustained ventricular tachycardia (5) Dementia (6) Hip fracture, right (7) History of CVA (cerebrovascular accident) Pertinent Non-Medical Issues: Psychosocial:Patient was raised in [place], [place]. 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 Patient worked 2 jobs at a time most of her life. Patient has been twice. Her first is and she is from her second . Patient has 9 living adult children. Spiritual:Patient is a [employer] Legal:Patient never completed advance directives. She is . Ethical issues impacting care:None identified at this time. Important Contacts: Carmen Noel(daughter) [phone] Serving as Health care proxy (Lives with patient) Kunal Pedro(son/eldest) [phone] in [place] Opted out Jabari Noel(son) [phone] -Unreachable-Multiple telephone call attempts Annia Pedro(daughter) - no available phone number lives in [place], [place] Scotty Pedro(son) lives in [place], [place] . No available number Isiah Pedro (son) [phone]-Opted out Tae Noel(daughter) [phone]-Opted out Leti (daughter) [phone] -Opted out Anthony Pedro (son) [phone]-Opted out Prognosis: Ms. Noel is a 68 years old female with past medical history of chronic kidney disease, dementia, hypertension, peripheral vascular disease, history of CVA, hepatitis C and monoclonal gammopathy. Patient was brought to the emergency room by family member on 01/09/18 for further evaluation of pain in his right hip and back following a witnessed mechanical fall. Hip and pelvis x-ray revealed right femoral neck fracture and she underwent right hip bipolar hemiarthroplasty on 01/10/18. Clinical course complicated with lethargy, dysphagia, worsening renal function and inability to participate in physical therapy due to cognitive impairment. Given ongoing multiple comorbidities, patient remains at high risk for further complications, deterioration and decline. Code Status: No Code DNR Plan: PLAN: Legal decision maker:Patient has dementia and is not able to participate in medical decision making and is most likely able to regain that capacity. Patient never completed advance directives. Patient is and has 9 adult children whom according to [place] Statute would serve as her health care proxys. 5 of patient`s children have opted out of decision making and 3 other children were not able to be reached. Patient's daughter Carmen Noel is currently serving as health care proxy at this time. Goals: Aggressive short of no code- Per discussion with patient`s daughter today, she is leaning towards proceeding with compassionate withdrawing from life support and transitioning patient to comfort care only through hospice services on 01/30/18. CODE STATUS: No Code- DNR/DNI SYMPTOMS: * Pain: Patient recently had a mechanical fall. Hip and pelvis x-ray revealed right femoral neck fracture and she underwent right hip bipolar hemiarthroplasty. Patient currently has acetaminophen 650 mg every 4 prn. No signs of pain noted. Continue to monitor for pain. * Shortness of breath: Intubated on 01/14/18. Sputum culture collected on 01/14 + for ESBL E. coli. On antibiotics and DuoNeb's every 6 hours ATC and prn. On CPAP trials but showing no neurological improvement. Family does not want to proceed with tracheostomy and PEG placement * Debility: Progressive. Patient has history of dementia.Per family patient has been progressively declining in the past few months. Patient recently fell and underwent hip surgery. Physical therapy, speech therapy consulted. Given patient's cognitive limitation and multiple embolic strokes, she most likely will not be able to participate in rehabilitation. Palliative care will continue to follow the patient during hospital course as condition evolves, to assist patient/decision-maker with understanding of their medical conditions, weighing benefits/burdens of treatment options, for clarification of goals of treatment. Additionally will assist with any symptoms of palliative concern Attestation Attestation: To help prompt me to consider important information that might be impacting today's encounter and assessment, information from prior notes written by myself or my colleagues may have been "brought forward" into today's note. My signature on this note, however, is an attestation that I personally performed the exam, history, and/or decision-making noted today, and, unless otherwise indicated, the interactions with patient, family, and staff as well as the review of records all occurred today. I also attest that the listed assessment and stated plan reflect my best clinical judgment today based on the combination of historical information, prior notes, and today's exam/ interactions. When time spent is documented, it refers only to time spent today by the signer, or if indicated, combined time spent today by collaborating physician/nurse practitioner.
--- NOTE | 2018-01-28 12:18 | P.PNNEU ---
Subjective Subjective Comments: No acute events reported No headache No chest pain No dyspnea Active Medications: Active Medications Generic Name Dose Route Start Last Admin Trade Name Freq PRN Reason Stop Dose Admin Acetaminophen 650 mg 01/25/18 11:03 Tylenol Liq PO Q6H PRN FEVER Albuterol 1 ampul 01/25/18 16:00 01/28/18 11:27 Duoneb Neb (Lenora) NEB 1 ampul Q4HR NEB LENORA Administration Albuterol 2.5 mg 01/25/18 12:00 Albuterol Neb (Prn) NEB Q2HR NEB PRN DYSPNEA Artificial Tears 1 drop 01/25/18 12:00 01/28/18 12:10 Tears Naturale Opth Drops EACH EYE 1 drop Q8H LENORA Administration Aspirin 81 mg 01/19/18 09:00 01/28/18 08:24 Aspirin Chew CHEW 81 mg DAILY LENORA Administration Chlorhexidine Gluconate 15 ml 01/19/18 08:00 01/28/18 08:25 Peridex 0.12% Oral Kit SWISH-SPIT 15 ml BID@0800,2000 LENORA Administration Clonidine HCl 0.1 mg 01/19/18 00:01 Catapres NG/OG Q6H PRN SBP>160, DBP>90 Dextrose 50 ml 01/25/18 11:15 D50w Vial IV.PUSH UNSCH PRN PER HYPOGLYCEMIA PROTOCOL Docusate Sodium 100 mg 01/25/18 21:00 01/28/18 08:24 Colace Liq NG/OG 100 mg BID LENORA Administration Ferrous Sulfate 300 mg 01/19/18 09:00 01/28/18 08:24 Ferrrous Sulfate Liq NG/OG 300 mg BID LENORA Administration Glucagon 1 mg 01/25/18 11:15 Glucagon Inj OTHER PRN PRN for Hypoglycemia Protocol Heparin Sodium (Porcine) 5,000 units 01/19/18 09:00 01/28/18 08:25 Heparin Inj SQ 5,000 units Q12HR LENORA Administration Hydralazine HCl 100 mg 01/19/18 04:00 01/28/18 12:10 Apresoline NG/OG 100 mg Q8H LENORA Administration Lansoprazole 30 mg 01/26/18 09:00 01/28/18 08:25 Prevacid Solutab NG/OG 30 mg DAILY LENORA Administration Naloxone HCl 0.4 mg 01/19/18 00:01 Narcan Inj IV.PUSH UNSCH PRN SEE COMMENTS Nifedipine 30 mg 01/19/18 06:00 01/28/18 05:05 Procardia NG/OG 30 mg Q8HR LENORA Administration Nitroglycerin 2 inch 01/26/18 07:45 Nitro-Bid 2% Oint TOPICAL Q6HR PRN SBP>160, DBP>90 Sodium Chloride 2 ml 01/19/18 00:01 Ns Inj IV.FLUSH UNSCH PRN FLUSH AFTER USING IV ACCESS Sodium Chloride 2 ml 01/19/18 09:00 01/28/18 08:26 Ns Flush IV.FLUSH 2 ml BID LENORA Administration Vitamin D 5,000 unit 01/24/18 10:00 01/28/18 08:26 Vitamin D3 Liq NG/OG 5,000 unit DAILY LENORA Administration Allergies/Adverse Reactions: Allergies Allergy/AdvReac Type Severity Reaction Status Date / Time No Known Allergies Allergy Unknown Uncoded 01/10/18 02:26 Physical Exam Vital signs: Vital Signs 01/27/18 14:00 01/27/18 16:00 01/27/18 16:19 Temperature 99.2 F Pulse Rate 76 74 74 Respiratory Rate 17 Blood Pressure 144/79 H Pulse Oximetry 98 95 01/27/18 18:00 01/27/18 20:00 01/27/18 20:03 Temperature 99.0 F Pulse Rate 74 74 75 Respiratory Rate 20 20 Blood Pressure 142/83 H Pulse Oximetry 93 L 01/27/18 20:05 01/27/18 22:00 01/28/18 00:00 Temperature 99.0 F Pulse Rate 64 72 Respiratory Rate 16 15 Blood Pressure 133/68 Pulse Oximetry 93 L 98 01/28/18 00:03 01/28/18 00:28 01/28/18 02:00 Temperature Pulse Rate 75 79 Respiratory Rate 16 17 Blood Pressure Pulse Oximetry 94 L 01/28/18 03:52 01/28/18 04:00 01/28/18 04:10 Temperature 98.2 F Pulse Rate 75 78 Respiratory Rate 14 15 15 Blood Pressure 163/83 H Pulse Oximetry 94 L 100 01/28/18 06:00 01/28/18 08:00 01/28/18 09:29 Temperature 98.1 F Pulse Rate 64 75 76 Respiratory Rate 15 18 Blood Pressure 135/71 Pulse Oximetry 98 99 01/28/18 11:28 Temperature Pulse Rate 79 Respiratory Rate 19 Blood Pressure Pulse Oximetry 98 Intake & Output 01/27/18 01/28/18 01/28/18 18:59 06:59 18:59 Intake Total 620 / 620 760 / 760 Output Total 400 / 400 550 / 550 Balance 220 / 220 210 / 210 Weight 80.4 kg Intake: Tube Feeding 420 / 420 440 / 440 Tube Irrigant 100 / 100 120 / 120 Water Bolus Amount 100 / 100 200 / 200 Output: Urine Amount (Catheter) 400 / 400 550 / 550 Indwelling Urethral Catheter 400 / 400 550 / 550 Other: Date of Last Bowel Movement 01/24/18 01/24/18 01/24/18 # Bowel Movements 0 Narrative: no rxt to threat eyes prefer to r withdraws toes a little bilat keeps eyes open slightly - Urinary Catheter Management Indwelling Urethral Catheter Cath placed during this visit: yes Urethral indwelling: Yes Reason for continuing: Hourly intake/output Insertion date: 02/09/18 Insertion time: 12:15 Objective Laboratory Results - last 24 hr 01/28/18 01/28/18 04:46 04:46 WBC 5.8 RBC 2.50 L Hgb 7.1 L Hct 21.8 L MCV 87.0 MCH 28.4 MCHC 32.7 RDW 15.9 Plt Count 341 MPV 8.9 Neut % (Auto) 61.5 Lymph % (Auto) 22.2 [place] % (Auto) 12.9 H Eos % (Auto) 2.2 Baso % (Auto) 1.2 Neut # (Auto) 3.6 Lymph # (Auto) 1.3 [place] # (Auto) 0.7 Eos # (Auto) 0.1 Baso # (Auto) 0.1 WBC Differential . Differential Comment Auto diff final Sodium 136 Potassium 4.6 Chloride 99 Carbon Dioxide 22.4 Anion Gap 15 BUN 128 H Creatinine 5.35 H Estimated GFR 9 L Random Glucose 109 H Calcium 8.6 Phosphorus 6.3 H Albumin 1.8 L Review/Management - Review/Management Plan: imp px poor due to age mult cva dementia not improving neurowise echo The left ventricular systolic function is normal with an estimated ejection fraction in the range of 55-60%. Mild concentric left ventricular hypertrophy. Trace mitral valve regurgitation. Trace aortic valve regurgitation. There is mild tricuspid valve regurgitation. A left sided pleural effusion is present. i would support comfort measures on her 01/21/18 no change as above i dw daughter. 01/22/18 now dnr on vent no change in her exam will fu occasionally 01/28/18 no change neurowise and px poor would agree with comfort measures
--- NOTE | 2018-01-28 14:27 | P.DIET ---
Nutritional Evaluation Type of nutrition evaluation: follow-up Nutrition consult regarding: Tube Feeding (01/13 [facility] [place] for TF) Objective - Diagnosis Hip Fx - Objective Body Weight Used for Calculations: Upper end of IBW (55 kg) Energy Needs - Lower Range (kCal/kg): 28 Energy Needs - Upper Range (kCal/kg): 32 Lower Limit kCal/kg (kCals): 1,540 Upper Limit kCal/kg (kCals): 1,760 Lower Limit Protein Factor (Grams per Kg): 0.7 Upper Limit Protein Factor (Grams per Kg): 1.0 Lower Protein Needs (Protein): 39 Upper Protein Needs (Protein): 55 Dietitian Reviewed in Medical Record: Curent medications, Intake & Output, Labs , Tube feeding Diet Order: TF only Objective Comments: Hx includes CKD, HTN, dementia, multiple CVAs, Hep C Meds include Vit D3, pepcid, FeSO4 Labs: BUN/creat 128/5.35, Est GFR 9, glu 109, phos 6.3, Mg 2.6 LBM 01/24 CBW = 80.4 kg Feeding - Current Tube Feeding Tube Feeding Product: [place] Tube Feeding Rate: 40 (ls/hr) Current kCals Provided by Tube Feedin,728 Current Protein Provided by Tube Feeding (gPRO): 43 Current Free H2O Provided (m/l): 706 Assessment Assessment: Pt remains at high nutrition risk receiving TFing of [place] @ 40 mls/hr. She remains intubated and encephalopathic. With current poor renal fxn and no plan for dialysis, recommend continue Su[place]ena with a goal rate of 40 mls/hr to provide 1728 kcals, 43 gms protein and 706 mls of free water. Palliative Care Consult noted. Recommendations: Continue [place] @ 40 mls/hr goal Dietitian to Monitor: Lab values, Renal labs, Intake & Output, Tube feeding tolerance, Weight change, Medical course
[2018-01-29] MEDS: Oral Hygiene Kit OROPHARYNG SCH ×3 (00:01→11:39)
[2018-01-29] MEDS: NIFEdipine 10 MG Capsule NG/OG SCH ×3 (05:00→21:15)
[2018-01-29] MEDS: Artificial Tears Opth Drops 15 ML Bottle EACH EYE SCH ×3 (05:01→20:25)
[2018-01-29 05:35] LABS: Baso # (Auto) 0.1 th/mm3 (0.0-0.2); Baso % (Auto) 1.2 % (0.0-2.0); Eos # (Auto) 0.1 th/mm3 (0.0-0.4); Eos % (Auto) 2.6 % (0.0-4.0); Lymph # (Auto) 1.1 th/mm3 (1.0-4.8); Lymph % (Auto) 21.4 % (9.0-44.0); Mean Corpuscular HGB Conc 32.6 % (32.0-36.0); Mean Corpuscular Hemoglobin 28.2 pg (27.0-34.0); Mean Corpuscular Volume 86.4 fL (80.0-100.0); Mean Platelet Volume 8.6 fL (7.0-11.0); Mono # (Auto) 0.6 th/mm3 (0.0-0.9); Mono % (Auto) 12.7 % (0.0-8.0); Neut # (Auto) 3.2 th/mm3 (1.8-7.7); Neut % (Auto) 62.1 % (16.0-70.0); Platelet Count 346 th/mm3 (150-450); Red Blood Count 2.43 mil/mm3 (4.00-5.30); Red Cell Distribution Width 15.8 % (11.6-17.2); White Blood Count 5.1 th/mm3 (4.0-11.0)
[2018-01-29 05:47] LABS: Hemoglobin 6.8 gm/dL (11.6-15.3)
[2018-01-29 05:53] LABS: Albumin 1.9 g/dL (3.4-5.0); Calcium 8.6 mg/dL (8.5-10.1); Carbon Dioxide 22.5 meq/L (21.0-32.0); Phosphorus 6.4 mg/dL (2.5-4.9); Potassium 4.9 meq/L (3.5-5.1)
[2018-01-29 08:15] LABS: Ovalocytes 1+
[2018-01-29] MEDS: Docusate Sodium Liq 100 MG/10 ML UDC NG/OG SCH ×2 (09:06→20:24)
[2018-01-29] MEDS: Ferrrous Sulfate 300 MG/5 ML UDC NG/OG SCH ×2 (09:06→20:24)
[2018-01-29] MEDS: Heparin - SQ 10,000 UNITS/ML Vial SQ SCH ×2 (09:07→20:24)
[2018-01-29] MEDS: Chlorhexidine 0.12% Oral Kit 15 ML UDC SWISH-SPIT SCH ×2 (09:08→20:25)
--- NOTE | 2018-01-29 09:40 | P.PNCC ---
Subjective Subjective Remarks/Hospital Course: Patient is a 72-year-old female with history of chronic kidney disease, dementia , hepatitis C, hypertension, monoclonal gammopathy who was admitted to the hospitalist service after she sustained right femoral neck fracture from a fall , she underwent right hip hemiarthroplasty 01/10/18. Patient has stage IV kidney disease and was admitted with BUN 78 creatinine of 4. Patient had been declining since admission was lethargic since yesterday. A CT of the head was negative. Became more unresponsive and unarousable since today afternoon. BUN/ creatinine today 104/5.74. Due to worsening mental status she was brought to the ICU and critical care medicine was consulted. Palliative care was consulted due to advanced dementia is worsening chronic kidney disease and encephalopathy but family wants aggressive care. I evaluated the patient in the ICU, patient is completely unresponsive, not waking up to painful stimuli. Gurgling breath sounds not protecting airway. Emergently intubated and placed on mechanical ventilation. Suctioned out large amount of moderate white to yellow thick secretions from the glottic opening. Patient probably has pneumonia based on secretions and bilateral alveolar infiltrates on chest x- ray. Worsening mental status most likely secondary to metabolic encephalopathy , antibiotics broadened to Zosyn and vancomycin. SUBJ 01/15: Remains intubated critically ill. BUN/creatinine remains elevated at 109/5.7. Chest x-ray shows persistent bilateral left more than right infiltrates. Patient remains encephalopathy go for sedation. Multiple nonsustained episodes of ventricular tachycardia. Had extensive discussion with daughter at the bedside and son over the phone. I encouraged him to consider DNR status given patient's dementia, worsening renal failure, cardiac dysrhythmias and sepsis now 01/16: Patient remains intubated off sedation for 24 hours. Remains unresponsive very slight withdrawal to pain. Sputum culture growing GNR. BUN creatinine slightly improved 97/5.43. Urine output approximately 800 mL in 24 hours. Hb 6.8, 1U PRBC ordered. Updated son at bedside 01/17: Remains severely encephalopathic. MRI brain yesterday shows multiple embolic lacunar infarct involving frontal lobes, right basal ganglia and left temporal occipital lobe. Severe diffuse periventricular and subcortical white matter small vessel ischemic changes are again noted. Pontine ischemic changes are also noted. Also diffuse probable amyloid angiopathy or hypertensive microhemorrhages, scattered old lacunar infarcts. Neurology had been consulted. Sputum culture growing ESBL E. coli Zosyn DC'd and ertapenem started 630: Remains severely encephalopathy. Continues to have no spontaneous eye opening. Renal function worsening. BUN/cr 111/5.7. Urine output 1 L in 24 hours 01/19: Remains intubated off all sedation no improvement in neuro status intermittently moves extremities spontaneously. Did not follow commands. Diminishing urine output 500 mL in 24 hours 01/20: No change in clinical condition remains unresponsive very weak withdrawal to pain. Urine output 750 mL in 24 hours, no acute indication for hemodialysis. Subjective: 01/21 [facility] palliative care met with family today and they elected to change CODE STATUS to DO NOT RESUSCITATE. They indicated they would not want trach and PEG , needing time to discuss. I reached out to Carmen and she says she has no further questions at this time. 01/22 No neuro change. Family indicates no trach/peg. Awaiting decision regarding withdrawal 01/23: Remains encephalopathic, orally intubated on mechanical ventilation. Not requiring any sedation. Tolerating tube feeds. 01/24: Remains encephalopathic, orally intubated on mechanical ventilation. Tolerating tube feeds. Family deciding regarding goals of therapy and possible de-escalation of therapy. 01/25: Afebrile. Gaze to the right. Withdraws to pain 4. Tolerating tube feeds. Positive BM. SUBJECTIVE: 01/26: Afebrile. Bradycardic this a.m. Slightly breathing over the ventilator at time. He does have gaze to the right. Withdraws to pain 4. Tolerating tube feeds. Neurologically unchanged. 01/27: No change in neurological status. Rarely breathes over vent. Unable to extubate. 01/28: No improvement in neurologic function. Respiratory effort and stamina not sufficient to allow for extubation. Renal function continues to deteriorate. 01/29: She remains was severely impaired neurological system. No evidence of improvement over the past several days. Unable to extubate at this time due to poor spontaneous respiratory effort. Family appears to have decided against performing additional Objective Vital Signs / I&O: Vital Signs 01/28/18 10:00 01/28/18 11:28 01/28/18 12:00 Temperature 98.4 F Pulse Rate 70 79 68 Respiratory Rate 19 24 Blood Pressure 150/89 H Pulse Oximetry 98 99 01/28/18 14:00 01/28/18 16:00 01/28/18 16:42 Temperature 98.2 F Pulse Rate 70 75 74 Respiratory Rate 21 12 Blood Pressure 149/77 H Pulse Oximetry 99 100 01/28/18 18:00 01/28/18 20:00 01/28/18 20:18 Temperature 98.2 F Pulse Rate 69 76 76 Respiratory Rate 23 21 Blood Pressure 165/83 H Pulse Oximetry 99 100 01/28/18 22:00 01/29/18 00:00 01/29/18 02:00 Temperature 98.8 F Pulse Rate 72 74 77 Respiratory Rate 22 Blood Pressure 134/70 Pulse Oximetry 01/29/18 04:00 01/29/18 04:09 01/29/18 06:00 Temperature 98.6 F Pulse Rate 76 74 64 Respiratory Rate 15 15 Blood Pressure 154/82 H Pulse Oximetry 100 100 01/29/18 08:44 Temperature Pulse Rate 72 Respiratory Rate 15 Blood Pressure Pulse Oximetry 100 Intake & Output 01/28/18 01/29/18 01/29/18 18:59 06:59 18:59 Intake Total 450 / 450 733 / 733 Output Total 450 / 450 600 / 600 Balance 0 / 0 133 / 133 Weight 77.1 kg Intake: Tube Feeding 450 / 450 413 / 413 Tube Irrigant 120 / 120 Water Bolus Amount 200 / 200 Output: Urine Amount (Catheter) 450 / 450 600 / 600 Indwelling Urethral Catheter 450 / 450 600 / 600 Other: Date of Last Bowel Movement 01/24/18 01/24/18 # Bowel Movements 0 0 Result Diagrams: 01/29/18 05:00 01/29/18 05:00 Objective Remarks: GENERAL: -[place] female lying in bed, off all sedation, remains encephalopathic SKIN: No rashes, ecchymoses or lesions. HEAD: Atraumatic. Normocephalic. EYES: Pupils equal round. No spontaneous eye opening ENT: Nose without bleeding, Edentulous. Orotracheally intubated NECK: Trachea midline. CARDIOVASCULAR: S1 S2 normal rhythm without murmurs, gallops, or rubs. No JVD. RESPIRATORY: Diminished breath sounds bases with scattered rhonchi bilaterally. Acceptable bilateral air movement. GASTROINTESTINAL: Abdomen soft, nondistended. Nontender. No guarding, bowel sounds present. MUSCULOSKELETAL: Knee immobilizer in place right knee. Distal circulation normal. NEUROLOGICAL: Patient remains unresponsive off sedation, R gaze preference with horizontal nystagmus. Slight withdrawal of extremities noted with painful stimuli, no eye opening. No change from last 24 hours. Assessment and Plan - Assessment and Plan Plan: A/P Assessment and Plan ASSESSMENT/PLAN: NEURO: Acute metabolic encephalopathy Multiple scattered embolic strokes, pontine ischemia Probable hypertensive microhemorrhages versus amyloid angiopathy Dementia -MRI Brain 01/17/18: Multiple embolic lacunar infarct involving frontal lobes, right basal ganglia and left temporal occipital lobe. Severe diffuse periventricular and subcortical white matter small vessel ischemic changes. Pontine ischemic changes noted. Probable amyloid angiopathy or hypertensive microhemorrhages, scattered old lacunar infarcts. -Neurology Dr. Hurt, would support transition to comfort if family elects. -Continue aspirin daily, unable to anticoagulate due to anemia requiring transfusion. Continue heparin 5000 units subcu every 12 -Encephalopathy most likely secondary to multiple embolic strokes, sepsis -CT of the head negative 01/13, EEG no seizures -Not on any sedation -Carotid Doppler no significant stenosis RESP: Acute hypoxemic respiratory failure HCAP/ESBL E Coli -Emergently intubated and placed on mechanical ventilation 01/14. -Daily spontaneous breathing trials but mental status will not permit extubation -DuoNeb every 6 hours scheduled and as needed -See ID for ABX -Palliative care discussed with family regarding tracheostomy and PEG tube. It appears they do not want trach and PEG. They are needing more time but are discussing transition to comfort measures. - CV: Nonsustained ventricular tachycardia Hypertension -Metoprolol IV as needed for PVCs/nonsustained V. tach -Serial cardiac enzymes. Prev Echo 2016, preserved LV ejection fraction, moderate LVH -Continue carvedilol continue oral hydralazine, nicardipine GI: -Suplena tube feeding at 40 mL/h per nutrition recommendations. -IV famotidine for GI prophylaxis : Acute on chronic kidney disease -Monitor renal function closely. French catheter. Nephrology following Dr. Sanchez Agree with nephrology, patient is a poor candidate for hemodialysis. ID: Severe sepsis Healthcare associated pneumonia /ESBL E. coli on culture 01/14 -ESBL isolation HEME: Anemia requiring transfusion -Monitor CBC, CMP, coags MSK: Right hip fracture status post hemiarthroplasty -Post op management per Ortho. PT ENDO: -Watch closely for hyperkalemia -Careful electrolyte replacement PROPH: -Bilateral lower extremity SCDs. Sq Heparin 5000 sq q12. IV famotidine 20 mg every 12 LINES: -Utilize peripheral IVs, CODE STATUS DO NOT RESUSCITATE Overall impression: MRI is consistent with physical exam. Remains ventilator dependent and now in renal failure. I highly recommend against dialysis. Patient's short-term prognosis is very poor. Meaningful neurologic recovery is highly unlikely. Comorbid conditions are leading toward permanent mechanical ventilation and hemodialysis. Family appears to be leaning toward compassionate extubation.
--- NOTE | 2018-01-29 11:44 | P.PNNP ---
Subjective Interval history: Condition unchanged. On ventilator. <Emani Avery - Last Filed: 01/29/18 11:42> Physical Exam Vital signs: Vital Signs 01/28/18 12:00 01/28/18 14:00 01/28/18 16:00 Temperature 98.4 F 98.2 F Pulse Rate 68 70 75 Respiratory Rate 24 21 Blood Pressure 150/89 H 149/77 H Pulse Oximetry 99 99 01/28/18 16:42 01/28/18 18:00 01/28/18 20:00 Temperature 98.2 F Pulse Rate 74 69 76 Respiratory Rate 12 23 Blood Pressure 165/83 H Pulse Oximetry 100 99 01/28/18 20:18 01/28/18 22:00 01/29/18 00:00 Temperature 98.8 F Pulse Rate 76 72 74 Respiratory Rate 21 22 Blood Pressure 134/70 Pulse Oximetry 100 01/29/18 02:00 01/29/18 04:00 01/29/18 04:09 Temperature 98.6 F Pulse Rate 77 76 74 Respiratory Rate 15 15 Blood Pressure 154/82 H Pulse Oximetry 100 100 01/29/18 06:00 01/29/18 08:00 01/29/18 08:44 Temperature 98.1 F Pulse Rate 64 78 72 Respiratory Rate 16 15 Blood Pressure 143/79 H Pulse Oximetry 98 100 01/29/18 10:00 Temperature Pulse Rate 81 Respiratory Rate Blood Pressure Pulse Oximetry Intake & Output 01/28/18 01/29/18 01/29/18 18:59 06:59 18:59 Intake Total 450 / 450 733 / 733 Output Total 450 / 450 600 / 600 Balance 0 / 0 133 / 133 Weight 77.1 kg Intake: Tube Feeding 450 / 450 413 / 413 Tube Irrigant 120 / 120 Water Bolus Amount 200 / 200 Output: Urine Amount (Catheter) 450 / 450 600 / 600 Indwelling Urethral Catheter 450 / 450 600 / 600 Other: Date of Last Bowel Movement 01/24/18 01/24/18 01/24/18 # Bowel Movements 0 0 - Constitutional no acute distress - Routine HEENT Exam Head: Present: normocephalic ENT: Present: mucous membranes moist - Routine Neck Exam Present: supple. Absent: JVD - Routine Respiratory Exam Present: patient mechanically ventilated. Absent: rales, rhonchi - Routine Cardiovascular Exam Present: RRR - Routine Abdominal Exam Present: soft, normoactive bowel sounds - Routine Extremities Exam Present: edema - Routine Skin Exam Present: dry, warm - Urinary Catheter Management Indwelling Urethral Catheter Cath placed during this visit: yes Urethral indwelling: Yes Reason for continuing: Hourly intake/output Insertion date: 02/09/18 Insertion time: 12:15 <Emani Avery - Last Filed: 01/29/18 11:42> Vital signs: Vital Signs 01/28/18 20:00 01/28/18 20:18 01/28/18 22:00 Temperature 98.2 F Pulse Rate 76 76 72 Respiratory Rate 23 21 Blood Pressure 165/83 H Pulse Oximetry 99 100 01/29/18 00:00 01/29/18 02:00 01/29/18 04:00 Temperature 98.8 F 98.6 F Pulse Rate 74 77 76 Respiratory Rate 22 15 Blood Pressure 134/70 154/82 H Pulse Oximetry 100 01/29/18 04:09 01/29/18 06:00 01/29/18 08:00 Temperature 98.1 F Pulse Rate 74 64 78 Respiratory Rate 15 16 Blood Pressure 143/79 H Pulse Oximetry 100 98 01/29/18 08:44 01/29/18 10:00 01/29/18 12:00 Temperature 97.7 F Pulse Rate 72 81 74 Respiratory Rate 15 14 Blood Pressure 135/84 Pulse Oximetry 100 100 01/29/18 12:01 01/29/18 14:00 01/29/18 16:00 Temperature 98.5 F Pulse Rate 73 73 71 Respiratory Rate 16 17 Blood Pressure 137/71 Pulse Oximetry 100 99 01/29/18 17:08 01/29/18 18:00 Temperature Pulse Rate 74 Respiratory Rate 16 Blood Pressure Pulse Oximetry 99 Intake & Output 01/28/18 01/29/18 01/29/18 18:59 06:59 18:59 Intake Total 450 / 450 733 / 733 606 / 606 Output Total 450 / 450 600 / 600 600 / 600 Balance 0 / 0 133 / 133 6 / 6 Weight 77.1 kg Intake: Tube Feeding 450 / 450 413 / 413 406 / 406 Tube Irrigant 120 / 120 Water Bolus Amount 200 / 200 200 / 200 Output: Urine Amount (Catheter) 450 / 450 600 / 600 600 / 600 Indwelling Urethral Catheter 450 / 450 600 / 600 600 / 600 Other: Date of Last Bowel Movement 01/24/18 01/24/18 01/24/18 # Bowel Movements 0 0 0 - Urinary Catheter Management Indwelling Urethral Catheter Cath placed during this visit: no <Norberto Sanchez - Last Filed: 01/29/18 18:54> Assessment and Plan - Assessment (1) Acute kidney injury Code(s): N17.9 - Acute kidney failure, unspecified Status: Acute Plan: kidney ultrasound showed echogenic kidney. Creatinine at 5.48 - > 5.3 -> 5.38 ->5.43 ->5.35 ->5.27 Urinary output 1000cc/ 24 hours Patient is a poor candidate for hemodialysis Avoid nephrotoxins French catheter Will continue to monitor urinary output and BMP. No acute need for dialysis at this time Continue to follow goals of care with patient's family Condition unchanged <Emani Avery - Last Filed: 01/29/18 11:42> - Assessment (1) Acute kidney injury Code(s): N17.9 - Acute kidney failure, unspecified Status: Acute - Attending Attestation Patient seen and examined, agree with above. Creatinine is almost same, K is normal. Clinically same. Family to decide for plan of care. Palliative care following. <Norberto Sanchez - Last Filed: 01/29/18 18:54>
--- NOTE | 2018-01-29 14:06 | P.PNPAL ---
Reason for Visit Reason for visit: a. To assist with evaluation and management of symptoms including: Shortness of breath, pain, debility b. To assist medical decision maker(s) with: better understanding of current medical conditions; weighing benefits/burdens of medical treatment options; making medical treatment decisions. Subjective Subjective/Interval History: Follow-up medically necessary for symptom management. Patient remains intubated and obtunded. Neurological status unchanged. Patient opened eyes briefly and does not appear to be tracking with her eyes. Not following simple commands. Patient is on CPAP trial 11/28/45%. Patient is not awake or responsive enough to protect her away. Patient currently not showing signs of pain. Laboratory workup today revealing WBC 5.1, hemoglobin 6.8, hematocrit 21.0, platelet count 346, sodium 137, potassium 4.9, BUN/creatinine on 16/12 2 7, random glucose 114, calcium 8.6, phosphorus 6.4, albumin 1.9. Case discussed with bedside RN. Family/Friend Interactions: No family at bedside. Advance Directives Living Will: Never completed Health Care Surrogate: Never completed Durable Power of [employer] Chief Scientist: Never completed Health Care Surrogate Name and Number: Prashant Noel [phone] Objective Vital Signs: Vital Signs 01/28/18 14:00 01/28/18 16:00 01/28/18 16:42 Temperature 98.2 F Pulse Rate 70 75 74 Respiratory Rate 21 12 Blood Pressure 149/77 H Pulse Oximetry 99 100 01/28/18 18:00 01/28/18 20:00 01/28/18 20:18 Temperature 98.2 F Pulse Rate 69 76 76 Respiratory Rate 23 21 Blood Pressure 165/83 H Pulse Oximetry 99 100 01/28/18 22:00 01/29/18 00:00 01/29/18 02:00 Temperature 98.8 F Pulse Rate 72 74 77 Respiratory Rate 22 Blood Pressure 134/70 Pulse Oximetry 01/29/18 04:00 01/29/18 04:09 01/29/18 06:00 Temperature 98.6 F Pulse Rate 76 74 64 Respiratory Rate 15 15 Blood Pressure 154/82 H Pulse Oximetry 100 100 01/29/18 08:00 01/29/18 08:44 01/29/18 10:00 Temperature 98.1 F Pulse Rate 78 72 81 Respiratory Rate 16 15 Blood Pressure 143/79 H Pulse Oximetry 98 100 01/29/18 12:00 01/29/18 12:01 Temperature 97.7 F Pulse Rate 74 73 Respiratory Rate 14 16 Blood Pressure 135/84 Pulse Oximetry 100 100 Intake & Output 01/28/18 01/29/18 01/29/18 18:59 06:59 18:59 Intake Total 450 / 450 733 / 733 Output Total 450 / 450 600 / 600 Balance 0 / 0 133 / 133 Weight 77.1 kg Intake: Tube Feeding 450 / 450 413 / 413 Tube Irrigant 120 / 120 Water Bolus Amount 200 / 200 Output: Urine Amount (Catheter) 450 / 450 600 / 600 Indwelling Urethral Catheter 450 / 450 600 / 600 Other: Date of Last Bowel Movement 01/24/18 01/24/18 01/24/18 # Bowel Movements 0 0 Physical Exam: Physical Exam CONSTITUTIONAL/GENERAL: elderly patient, intubated and encephalopathic TUBES/LINES/DRAINS:NC, PIV, FC, NGT, ETT, bilateral soft restraints SKIN: Wound to coccyx per RN, Healing surgical incision to right lateral hip. EYES: PERRLA. No eye opening. ENT: Nose without bleeding or purulent drainage.NGT with TF Nepro infusing at 40ml/hr CARDIOVASCULAR: S1, S2 normal, gallops, or rubs. Edema to bilateral upper extremities and bilateral lower extremities. RESPIRATORY/CHEST: Symmetric, unlabored respirations. Diminished breath sounds GASTROINTESTINAL: Abdomen soft, non-tender, nondistended. Bowel sounds present. TF infusing via NGT GENITOURINARY: Without palpable bladder distension. French catheter in place. MUSCULOSKELETAL: Extremities without clubbing, cyanosis. Edematous to all 4 extremities NEUROLOGICAL: intubated with no sedation, briefly opens eyes, not following commands, only withdraws to noxious stimulation PSYCHIATRIC: Unable to assess. Diagnostic Tests Laboratory: Laboratory Results - last 72 hr 01/26/18 01/27/18 01/27/18 13:30 03:33 03:33 WBC 6.1 RBC 2.79 L Hgb 8.0 L Hct 24.1 L MCV 86.3 MCH 28.5 MCHC 33.0 RDW 15.8 Plt Count 354 MPV 8.8 Prelim Diff (Auto) Neut % (Auto) 68.5 Lymph % (Auto) 17.3 [place] % (Auto) 10.9 H Eos % (Auto) 2.1 Baso % (Auto) 1.2 Neut # (Auto) 4.2 Lymph # (Auto) 1.1 [place] # (Auto) 0.7 Eos # (Auto) 0.1 Baso # (Auto) 0.1 WBC Differential . Diff Scan Differential Comment Auto diff final Ovalocytes Sodium 135 L Potassium 4.8 Chloride 99 Carbon Dioxide 22.1 Anion Gap 14 BUN 125 H Creatinine 5.43 H Estimated GFR 9 L Random Glucose 103 Lactic Acid 0.9 Calcium 8.6 Phosphorus 6.4 H Magnesium 2.6 H Total Bilirubin 0.2 AST 39 H ALT 10 Alkaline Phosphatase 111 Total Protein 7.1 Albumin 1.9 L TSH 5.140 H Free T4 1.31 Free T3 1.56 L 01/28/18 01/28/18 01/29/18 04:46 04:46 05:00 WBC 5.8 5.1 RBC 2.50 L 2.43 L Hgb 7.1 L 6.8 L* Hct 21.8 L 21.0 L MCV 87.0 86.4 MCH 28.4 28.2 MCHC 32.7 32.6 RDW 15.9 15.8 Plt Count 341 346 MPV 8.9 8.6 Prelim Diff (Auto) Slide review pending Neut % (Auto) 61.5 62.1 Lymph % (Auto) 22.2 21.4 [place] % (Auto) 12.9 H 12.7 H Eos % (Auto) 2.2 2.6 Baso % (Auto) 1.2 1.2 Neut # (Auto) 3.6 3.2 Lymph # (Auto) 1.3 1.1 [place] # (Auto) 0.7 0.6 Eos # (Auto) 0.1 0.1 Baso # (Auto) 0.1 0.1 WBC Differential . . Diff Scan Auto diff confirmed Differential Comment Auto diff final . Ovalocytes 1+ H Sodium 136 Potassium 4.6 Chloride 99 Carbon Dioxide 22.4 Anion Gap 15 BUN 128 H Creatinine 5.35 H Estimated GFR 9 L Random Glucose 109 H Lactic Acid Calcium 8.6 Phosphorus 6.3 H Magnesium Total Bilirubin AST ALT Alkaline Phosphatase Total Protein Albumin 1.8 L TSH Free T4 Free T3 01/29/18 05:00 WBC RBC Hgb Hct MCV MCH MCHC RDW Plt Count MPV Prelim Diff (Auto) Neut % (Auto) Lymph % (Auto) [place] % (Auto) Eos % (Auto) Baso % (Auto) Neut # (Auto) Lymph # (Auto) [place] # (Auto) Eos # (Auto) Baso # (Auto) WBC Differential Diff Scan Differential Comment Ovalocytes Sodium 137 Potassium 4.9 Chloride 101 Carbon Dioxide 22.5 Anion Gap 14 BUN 128 H Creatinine 5.27 H Estimated GFR 10 L Random Glucose 114 H Lactic Acid Calcium 8.6 Phosphorus 6.4 H Magnesium Total Bilirubin AST ALT Alkaline Phosphatase Total Protein Albumin 1.9 L TSH Free T4 Free T3 Result Diagrams: 01/29/18 05:00 01/29/18 05:00 Imaging: Hip X-Ray 01/23/18 00:00 CONCLUSION: Good position and alignment on this postoperative study. Chest X-Ray 01/27/18 06:00 CONCLUSION: 1. Cardiomegaly with pulmonary vascular congestion. 2. Worsening bilateral pleural effusions with associated airspace disease in the lower lung zones. Procedures: 01/10/2018-right hip bipolar hemiarthroplasty 01/14/18-Intubation Assessment and Plan - Disease Oriented Problem List (1) Acute hypoxemic respiratory failure (2) Embolic infarction (3) Hypertension (4) Nonsustained ventricular tachycardia (5) Dementia (6) Hip fracture, right (7) History of CVA (cerebrovascular accident) - Symptom Scale (1) Shortness of breath 0-10 Scale: Unable to quantify (3) Debility 0-10 Scale: Unable to quantify Pertinent Non-Medical Issues: Psychosocial:Patient was raised in [place], [place]. 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 Patient worked 2 jobs at a time most of her life. Patient has been twice. Her first is and she is from her second . Patient has 9 living adult children. Spiritual:Patient is a Mosque Legal:Patient never completed advance directives. She is . Ethical issues impacting care:None identified at this time. Important Contacts: Carmen Noel(daughter) [phone] Serving as Health care proxy (Lives with patient) Kunal Pedro(son/eldest) [phone] in [place] Opted out Jabari Noel(son) [phone] -Unreachable-Multiple telephone call attempts Annia Pedro(daughter) - no available phone number lives in [place], [place] Scotty Pedro(son) lives in [place], [place] . No available number Isiah Pedro (son) [phone]-Opted out Tae Noel(daughter) [phone]-Opted out Leti (daughter) [phone] -Opted out Anthony Pedro (son) [phone]-Opted out Prognosis: Ms. Noel is a 68 years old female with past medical history of chronic kidney disease, dementia, hypertension, peripheral vascular disease, history of CVA, hepatitis C and monoclonal gammopathy. Patient was brought to the emergency room by family member on 01/09/18 for further evaluation of pain in his right hip and back following a witnessed mechanical fall. Hip and pelvis x-ray revealed right femoral neck fracture and she underwent right hip bipolar hemiarthroplasty on 01/10/18. Clinical course complicated with lethargy, dysphagia, worsening renal function and inability to participate in physical therapy due to cognitive impairment. Given ongoing multiple comorbidities, patient remains at high risk for further complications, deterioration and decline. Code Status: No Code DNR Plan: PLAN: Legal decision maker:Patient has dementia and is not able to participate in medical decision making and is most likely able to regain that capacity. Patient never completed advance directives. Patient is and has 9 adult children whom according to [place] Statute would serve as her health care proxys. 5 of patient`s children have opted out of decision making and 3 other children were not able to be reached. Patient's daughter Carmen Noel is currently serving as health care proxy at this time. Goals: Aggressive short of no code- Per discussion with patient`s daughter on 01/29/18, she is likely proceeding with compassionate withdrawing from life support and transitioning patient to comfort care only through hospice services on 01/30/18. CODE STATUS: No Code- DNR/DNI SYMPTOMS: * Pain: Patient recently had a mechanical fall. Hip and pelvis x-ray revealed right femoral neck fracture and she underwent right hip bipolar hemiarthroplasty. Patient currently has acetaminophen 650 mg every 4 prn. No signs of pain noted. Continue to monitor for pain. * Shortness of breath: Intubated on 01/14/18. Sputum culture collected on 01/14 + for ESBL E. coli. On antibiotics and DuoNeb's every 6 hours ATC and prn. On CPAP trials but showing no neurological improvement. Family does not want to proceed with tracheostomy and PEG placement * Debility: Progressive. Patient has history of dementia.Per family patient has been progressively declining in the past few months. Patient recently fell and underwent hip surgery. Physical therapy, speech therapy consulted. Given patient's cognitive limitation and multiple embolic strokes, she most likely will not be able to participate in rehabilitation. Palliative care will continue to follow the patient during hospital course as condition evolves, to assist patient/decision-maker with understanding of their medical conditions, weighing benefits/burdens of treatment options, for clarification of goals of treatment. Additionally will assist with any symptoms of palliative concern Attestation Attestation: To help prompt me to consider important information that might be impacting today's encounter and assessment, information from prior notes written by myself or my colleagues may have been "brought forward" into today's note. My signature on this note, however, is an attestation that I personally performed the exam, history, and/or decision-making noted today, and, unless otherwise indicated, the interactions with patient, family, and staff as well as the review of records all occurred today. I also attest that the listed assessment and stated plan reflect my best clinical judgment today based on the combination of historical information, prior notes, and today's exam/ interactions. When time spent is documented, it refers only to time spent today by the signer, or if indicated, combined time spent today by collaborating physician/nurse practitioner.
[2018-01-30] MEDS: Oral Hygiene Kit OROPHARYNG SCH ×6 (04:39→16:02)
[2018-01-30 05:42] LABS: Baso # (Auto) 0.1 th/mm3 (0.0-0.2); Baso % (Auto) 1.1 % (0.0-2.0); Eos # (Auto) 0.1 th/mm3 (0.0-0.4); Eos % (Auto) 2.8 % (0.0-4.0); Lymph # (Auto) 1.2 th/mm3 (1.0-4.8); Lymph % (Auto) 22.7 % (9.0-44.0); Mean Corpuscular HGB Conc 33.5 % (32.0-36.0); Mean Corpuscular Hemoglobin 28.9 pg (27.0-34.0); Mean Corpuscular Volume 86.4 fL (80.0-100.0); Mean Platelet Volume 8.3 fL (7.0-11.0); Mono # (Auto) 0.7 th/mm3 (0.0-0.9); Mono % (Auto) 12.7 % (0.0-8.0); Neut # (Auto) 3.1 th/mm3 (1.8-7.7); Neut % (Auto) 60.7 % (16.0-70.0); Platelet Count 333 th/mm3 (150-450); Red Blood Count 2.37 mil/mm3 (4.00-5.30); Red Cell Distribution Width 15.6 % (11.6-17.2); White Blood Count 5.1 th/mm3 (4.0-11.0)
[2018-01-30 05:59] LABS: Hemoglobin 6.9 gm/dL (11.6-15.3)
[2018-01-30 06:00] LABS: Hematocrit 20.5 % (35.0-46.0)
[2018-01-30 06:10] LABS: Albumin 1.8 g/dL (3.4-5.0); Calcium 9.2 mg/dL (8.5-10.1); Carbon Dioxide 20.2 meq/L (21.0-32.0); Potassium 4.6 meq/L (3.5-5.1)
[2018-01-30 06:11] LABS: Phosphorus 6.2 mg/dL (2.5-4.9)
[2018-01-30] MEDS: NIFEdipine 10 MG Capsule NG/OG SCH ×2 (06:11→13:55)
[2018-01-30] MEDS: Artificial Tears Opth Drops 15 ML Bottle EACH EYE SCH ×3 (06:11→22:53)
[2018-01-30] MEDS: Heparin - SQ 10,000 UNITS/ML Vial SQ SCH (08:20)
[2018-01-30] MEDS: Ferrrous Sulfate 300 MG/5 ML UDC NG/OG SCH (08:21)
[2018-01-30 08:31] LABS: Ovalocytes 1+
[2018-01-30] MEDS: Docusate Sodium Liq 100 MG/10 ML UDC NG/OG SCH (11:40)
--- NOTE | 2018-01-30 11:40 | P.PNCC ---
Subjective Subjective Remarks/Hospital Course: Patient is a 72-year-old female with history of chronic kidney disease, dementia , hepatitis C, hypertension, monoclonal gammopathy who was admitted to the hospitalist service after she sustained right femoral neck fracture from a fall , she underwent right hip hemiarthroplasty 01/10/18. Patient has stage IV kidney disease and was admitted with BUN 78 creatinine of 4. Patient had been declining since admission was lethargic since yesterday. A CT of the head was negative. Became more unresponsive and unarousable since today afternoon. BUN/ creatinine today 104/5.74. Due to worsening mental status she was brought to the ICU and critical care medicine was consulted. Palliative care was consulted due to advanced dementia is worsening chronic kidney disease and encephalopathy but family wants aggressive care. I evaluated the patient in the ICU, patient is completely unresponsive, not waking up to painful stimuli. Gurgling breath sounds not protecting airway. Emergently intubated and placed on mechanical ventilation. Suctioned out large amount of moderate white to yellow thick secretions from the glottic opening. Patient probably has pneumonia based on secretions and bilateral alveolar infiltrates on chest x- ray. Worsening mental status most likely secondary to metabolic encephalopathy , antibiotics broadened to Zosyn and vancomycin. SUBJ 01/15: Remains intubated critically ill. BUN/creatinine remains elevated at 109/5.7. Chest x-ray shows persistent bilateral left more than right infiltrates. Patient remains encephalopathy go for sedation. Multiple nonsustained episodes of ventricular tachycardia. Had extensive discussion with daughter at the bedside and son over the phone. I encouraged him to consider DNR status given patient's dementia, worsening renal failure, cardiac dysrhythmias and sepsis now 01/16: Patient remains intubated off sedation for 24 hours. Remains unresponsive very slight withdrawal to pain. Sputum culture growing GNR. BUN creatinine slightly improved 97/5.43. Urine output approximately 800 mL in 24 hours. Hb 6.8, 1U PRBC ordered. Updated son at bedside 01/17: Remains severely encephalopathic. MRI brain yesterday shows multiple embolic lacunar infarct involving frontal lobes, right basal ganglia and left temporal occipital lobe. Severe diffuse periventricular and subcortical white matter small vessel ischemic changes are again noted. Pontine ischemic changes are also noted. Also diffuse probable amyloid angiopathy or hypertensive microhemorrhages, scattered old lacunar infarcts. Neurology had been consulted. Sputum culture growing ESBL E. coli Zosyn DC'd and ertapenem started 630: Remains severely encephalopathy. Continues to have no spontaneous eye opening. Renal function worsening. BUN/cr 111/5.7. Urine output 1 L in 24 hours 01/19: Remains intubated off all sedation no improvement in neuro status intermittently moves extremities spontaneously. Did not follow commands. Diminishing urine output 500 mL in 24 hours 01/20: No change in clinical condition remains unresponsive very weak withdrawal to pain. Urine output 750 mL in 24 hours, no acute indication for hemodialysis. Subjective: 01/21 [facility] palliative care met with family today and they elected to change CODE STATUS to DO NOT RESUSCITATE. They indicated they would not want trach and PEG , needing time to discuss. I reached out to Carmen and she says she has no further questions at this time. 01/22 No neuro change. Family indicates no trach/peg. Awaiting decision regarding withdrawal 01/23: Remains encephalopathic, orally intubated on mechanical ventilation. Not requiring any sedation. Tolerating tube feeds. 01/24: Remains encephalopathic, orally intubated on mechanical ventilation. Tolerating tube feeds. Family deciding regarding goals of therapy and possible de-escalation of therapy. 01/25: Afebrile. Gaze to the right. Withdraws to pain 4. Tolerating tube feeds. Positive BM. SUBJECTIVE: 01/26: Afebrile. Bradycardic this a.m. Slightly breathing over the ventilator at time. He does have gaze to the right. Withdraws to pain 4. Tolerating tube feeds. Neurologically unchanged. 01/27: No change in neurological status. Rarely breathes over vent. Unable to extubate. 01/28: No improvement in neurologic function. Respiratory effort and stamina not sufficient to allow for extubation. Renal function continues to deteriorate. 01/29: She remains was severely impaired neurological system. No evidence of improvement over the past several days. Unable to extubate at this time due to poor spontaneous respiratory effort. Family appears to have decided against performing additional invasive procedures. 01/30: General clinical condition remains poor. Chance for a meaningful recovery are minimal to zero. She would undoubtedly be ventilator dependent and definitely and require a skilled facility. Objective Vital Signs / I&O: Vital Signs 01/29/18 12:00 01/29/18 12:01 01/29/18 14:00 Temperature 97.7 F Pulse Rate 74 73 73 Respiratory Rate 14 16 Blood Pressure 135/84 Pulse Oximetry 100 100 01/29/18 16:00 01/29/18 17:08 01/29/18 18:00 Temperature 98.5 F Pulse Rate 71 74 Respiratory Rate 17 16 Blood Pressure 137/71 Pulse Oximetry 99 99 01/29/18 19:58 01/29/18 20:00 01/29/18 22:00 Temperature 99.0 F Pulse Rate 78 79 Respiratory Rate 15 15 Blood Pressure 133/67 Pulse Oximetry 99 99 01/30/18 00:00 01/30/18 01:46 01/30/18 02:00 Temperature 99.5 F Pulse Rate 81 79 Respiratory Rate 12 15 Blood Pressure 151/83 H Pulse Oximetry 99 100 01/30/18 04:00 01/30/18 04:25 01/30/18 06:00 Temperature 99.5 F Pulse Rate 78 76 Respiratory Rate 16 15 Blood Pressure 135/77 Pulse Oximetry 99 93 L 01/30/18 08:00 01/30/18 08:17 Temperature 98.7 F Pulse Rate 78 Respiratory Rate 23 17 Blood Pressure 141/73 H Pulse Oximetry 99 97 Intake & Output 01/29/18 01/30/18 01/30/18 18:59 06:59 18:59 Intake Total 606 / 606 772 / 772 Output Total 600 / 600 750 / 750 Balance Intake: Tube Feeding 406 / 406 452 / 452 Tube Irrigant 120 / 120 Water Bolus Amount 200 / 200 200 / 200 Output: Urine Amount (Catheter) 600 / 600 750 / 750 Indwelling Urethral Catheter 600 / 600 750 / 750 Other: Date of Last Bowel Movement 01/24/18 01/24/18 01/24/18 # Bowel Movements 0 Result Diagrams: 01/30/18 05:23 01/30/18 05:23 Objective Remarks: GENERAL: -[place] female lying in bed, off all sedation, remains encephalopathic SKIN: No rashes, ecchymoses or lesions. HEAD: Atraumatic. Normocephalic. EYES: Pupils equal round. No spontaneous eye opening ENT: Nose without bleeding, Edentulous. Orotracheally intubated NECK: Trachea midline. CARDIOVASCULAR: S1 S2 normal rhythm without murmurs, gallops, or rubs. No JVD. RESPIRATORY: Diminished breath sounds bases with scattered rhonchi bilaterally. Acceptable bilateral air movement. GASTROINTESTINAL: Abdomen soft, nondistended. Nontender. No guarding, bowel sounds present. MUSCULOSKELETAL: Knee immobilizer in place right knee. Distal circulation normal. NEUROLOGICAL: Patient remains unresponsive off sedation, R gaze preference with horizontal nystagmus. Slight withdrawal of extremities noted with painful stimuli, no eye opening. No change from last 24 hours. Assessment and Plan - Assessment and Plan Plan: A/P Assessment and Plan ASSESSMENT/PLAN: NEURO: Acute metabolic encephalopathy Multiple scattered embolic strokes, pontine ischemia Probable hypertensive microhemorrhages versus amyloid angiopathy Dementia -MRI Brain 01/17/18: Multiple embolic lacunar infarct involving frontal lobes, right basal ganglia and left temporal occipital lobe. Severe diffuse periventricular and subcortical white matter small vessel ischemic changes. Pontine ischemic changes noted. Probable amyloid angiopathy or hypertensive microhemorrhages, scattered old lacunar infarcts. -Neurology Dr. Hurt, would support transition to comfort if family elects. -Continue aspirin daily, unable to anticoagulate due to anemia requiring transfusion. Continue heparin 5000 units subcu every 12 -Encephalopathy most likely secondary to multiple embolic strokes, sepsis -CT of the head negative 01/13, EEG no seizures -Not on any sedation -Carotid Doppler no significant stenosis RESP: Acute hypoxemic respiratory failure HCAP/ESBL E Coli -Emergently intubated and placed on mechanical ventilation 01/14. -Daily spontaneous breathing trials but mental status will not permit extubation -DuoNeb every 6 hours scheduled and as needed -See ID for ABX -Palliative care discussed with family regarding tracheostomy and PEG tube. It appears they do not want trach and PEG. They are needing more time but are discussing transition to comfort measures. - CV: Nonsustained ventricular tachycardia Hypertension -Metoprolol IV as needed for PVCs/nonsustained V. tach -Serial cardiac enzymes. Prev Echo 2017, preserved LV ejection fraction, moderate LVH -Continue carvedilol continue oral hydralazine, nicardipine GI: -Suplena tube feeding at 40 mL/h per nutrition recommendations. -IV famotidine for GI prophylaxis : Acute on chronic kidney disease -Monitor renal function closely. French catheter. Nephrology following Dr. Sanchez Agree with nephrology, patient is a poor candidate for hemodialysis. ID: Severe sepsis Healthcare associated pneumonia /ESBL E. coli on culture 01/14 -ESBL isolation HEME: Anemia requiring transfusion -Monitor CBC, CMP, coags MSK: Right hip fracture status post hemiarthroplasty -Post op management per Ortho. PT ENDO: -Watch closely for hyperkalemia -Careful electrolyte replacement PROPH: -Bilateral lower extremity SCDs. Sq Heparin 5000 sq q12. IV famotidine 20 mg every 12 LINES: -Utilize peripheral IVs, CODE STATUS DO NOT RESUSCITATE Overall impression: MRI is consistent with physical exam. Remains ventilator dependent and now in renal failure. I highly recommend against dialysis. Patient's short-term prognosis is very poor. Meaningful neurologic recovery is highly unlikely. Comorbid conditions are leading toward permanent mechanical ventilation and hemodialysis. Family appears to be leaning toward compassionate extubation. I can see no road to a meaningful recovery even if dialysis and mechanical ventilation are performed permanently.
[2018-01-30] MEDS: Chlorhexidine 0.12% Oral Kit 15 ML UDC SWISH-SPIT SCH ×2 (11:41→22:52)
--- NOTE | 2018-01-30 13:23 | P.PNPAL ---
Reason for Visit Reason for visit: a. To assist with evaluation and management of symptoms including: Shortness of breath, pain, debility b. To assist medical decision maker(s) with: better understanding of current medical conditions; weighing benefits/burdens of medical treatment options; making medical treatment decisions. Subjective Subjective/Interval History: Follow-up medically necessary for further clarification of goals of care. Patient remains intubated, with no sedation and no improvement in neurological status. No eye opening, not following commands. Patient his occasional spontaneous and purposeful movements. Patient is currently on CPAP 5/8/40%. Discussion with some of the patient's children currently in the room Bert Barboza, Tae Noel, Bert Landeros and patient's grandchildren.Patient`s son Jabari Noel asked if he wanted to participate in medical decision making since palliative care has not been able to contact him by phone. Patient`s son Jabari Noel opted out of medical decision making. Updated them on patient's medical status and expressed concern that patient has not showed significant improvement in his neurological status. Explained to them that patient had worsening dementia prior to this hospitalization, stroke, stage V kidney disease , status post hip surgery and will most likely not have a meaningful recovery from all the ongoing multiple comorbidities. Patient`s children stated that Carmen has requested to be called by palliative care. Patient`s children appropriately tearful. Explained briefly option of compassionate withdrawal from life life support and transitioning to comfort care through hospice services as previously discussed with Carmen. Placed call to Carmen Noel, no response- left a voice message. Met with Carmen on [facility]. She has decided to forgo any further aggressive treatment and proceed with compassionate withdrawal from life support today with the support of her family today. She also wants to transition patient to comfort care only through hospice services. Hospice consulted per family request. Anticipatory guidance regarding compassionate withdrawal provided. Exhibit B and C signed. Case discussed with bedside RN, negative developer, Dr. Flowers, and Dr. Ballesteros. Family/Friend Interactions: Family meeting with patient`s daughters and son. See interval note. Advance Directives Living Will: Never completed Health Care Surrogate: Never completed Durable Power of Water And Gas Helper: Never completed Health Care Surrogate Name and Number: [facility]-Carmen Noel [phone] Objective Vital Signs: Vital Signs 01/29/18 14:00 01/29/18 16:00 01/29/18 17:08 Temperature 98.5 F Pulse Rate 73 71 Respiratory Rate 17 16 Blood Pressure 137/71 Pulse Oximetry 99 99 01/29/18 18:00 01/29/18 19:58 01/29/18 20:00 Temperature 99.0 F Pulse Rate 74 78 Respiratory Rate 15 15 Blood Pressure 133/67 Pulse Oximetry 99 99 01/29/18 22:00 01/30/18 00:00 01/30/18 01:46 Temperature 99.5 F Pulse Rate 79 81 Respiratory Rate 12 15 Blood Pressure 151/83 H Pulse Oximetry 99 100 01/30/18 02:00 01/30/18 04:00 01/30/18 04:25 Temperature 99.5 F Pulse Rate 79 78 Respiratory Rate 16 15 Blood Pressure 135/77 Pulse Oximetry 99 93 L 01/30/18 06:00 01/30/18 08:00 01/30/18 08:17 Temperature 98.7 F Pulse Rate 76 78 Respiratory Rate 23 17 Blood Pressure 141/73 H Pulse Oximetry 99 97 01/30/18 12:20 Temperature Pulse Rate Respiratory Rate 22 Blood Pressure Pulse Oximetry 94 L Intake & Output 01/29/18 01/30/18 01/30/18 18:59 06:59 18:59 Intake Total 606 / 606 772 / 772 Output Total 600 / 600 750 / 750 Balance Intake: Tube Feeding 406 / 406 452 / 452 Tube Irrigant 120 / 120 Water Bolus Amount 200 / 200 200 / 200 Output: Urine Amount (Catheter) 600 / 600 750 / 750 Indwelling Urethral Catheter 600 / 600 750 / 750 Other: Date of Last Bowel Movement 01/24/18 01/24/18 01/24/18 # Bowel Movements 0 Physical Exam: Physical Exam CONSTITUTIONAL/GENERAL: elderly patient, remains intubated and encephalopathic TUBES/LINES/DRAINS:NC, PIV, FC, NGT, ETT, bilateral soft restraints SKIN: Wound to coccyx per RN, Healed surgical incision to right lateral hip. EYES: PERRLA. No eye opening. ENT: Nose without bleeding or purulent drainage.NGT with TF Nepro infusing at 40ml/hr CARDIOVASCULAR: S1, S2 normal, gallops, or rubs. Edema to bilateral upper extremities and bilateral lower extremities. RESPIRATORY/CHEST: Symmetric, unlabored respirations. Diminished breath sounds GASTROINTESTINAL: Abdomen soft, non-tender, nondistended. Bowel sounds present. TF infusing via NGT GENITOURINARY: Without palpable bladder distension. French catheter in place. MUSCULOSKELETAL: Extremities without clubbing, cyanosis. Edematous to all 4 extremities NEUROLOGICAL: intubated with no sedation, briefly opens eyes, not following commands, only withdraws to noxious stimulation PSYCHIATRIC: Unable to assess. Diagnostic Tests Laboratory: Laboratory Results - last 72 hr 01/28/18 01/28/18 01/29/18 04:46 04:46 05:00 WBC 5.8 5.1 RBC 2.50 L 2.43 L Hgb 7.1 L 6.8 L* Hct 21.8 L 21.0 L MCV 87.0 86.4 MCH 28.4 28.2 MCHC 32.7 32.6 RDW 15.9 15.8 Plt Count 341 346 MPV 8.9 8.6 Prelim Diff (Auto) Slide review pending Neut % (Auto) 61.5 62.1 Lymph % (Auto) 22.2 21.4 [place] % (Auto) 12.9 H 12.7 H Eos % (Auto) 2.2 2.6 Baso % (Auto) 1.2 1.2 Neut # (Auto) 3.6 3.2 Lymph # (Auto) 1.3 1.1 [place] # (Auto) 0.7 0.6 Eos # (Auto) 0.1 0.1 Baso # (Auto) 0.1 0.1 WBC Differential . . Diff Scan Auto diff confirmed Differential Comment Auto diff final . Ovalocytes 1+ H Sodium 136 Potassium 4.6 Chloride 99 Carbon Dioxide 22.4 Anion Gap 15 BUN 128 H Creatinine 5.35 H Estimated GFR 9 L Random Glucose 109 H Calcium 8.6 Phosphorus 6.3 H Albumin 1.8 L 01/29/18 01/30/18 01/30/18 05:00 05:23 05:23 WBC 5.1 RBC 2.37 L Hgb 6.9 L* Hct 20.5 L* MCV 86.4 MCH 28.9 MCHC 33.5 RDW 15.6 Plt Count 333 MPV 8.3 Prelim Diff (Auto) Slide review pending Neut % (Auto) 60.7 Lymph % (Auto) 22.7 [place] % (Auto) 12.7 H Eos % (Auto) 2.8 Baso % (Auto) 1.1 Neut # (Auto) 3.1 Lymph # (Auto) 1.2 [place] # (Auto) 0.7 Eos # (Auto) 0.1 Baso # (Auto) 0.1 WBC Differential . Diff Scan Auto diff confirmed Differential Comment . Ovalocytes 1+ H Sodium 137 137 Potassium 4.9 4.6 Chloride 101 101 Carbon Dioxide 22.5 20.2 L Anion Gap 14 16 H BUN 128 H 124 H Creatinine 5.27 H 5.27 H Estimated GFR 10 L 10 L Random Glucose 114 H 108 H Calcium 8.6 9.2 Phosphorus 6.4 H 6.2 H Albumin 1.9 L 1.8 L Result Diagrams: 01/30/18 05:23 01/30/18 05:23 Imaging: Hip X-Ray 01/23/18 00:00 CONCLUSION: Good position and alignment on this postoperative study. Chest X-Ray 01/27/18 06:00 CONCLUSION: 1. Cardiomegaly with pulmonary vascular congestion. 2. Worsening bilateral pleural effusions with associated airspace disease in the lower lung zones. Procedures: 01/10/2018-right hip bipolar hemiarthroplasty 01/14/18-Intubation Assessment and Plan - Disease Oriented Problem List (1) Acute hypoxemic respiratory failure (2) Embolic infarction (3) Hypertension (4) Nonsustained ventricular tachycardia (5) Dementia (6) Hip fracture, right (7) History of CVA (cerebrovascular accident) - Symptom Scale (1) Shortness of breath 0-10 Scale: Unable to quantify (2) Pain 0-10 Scale: Unable to quantify (3) Debility 0-10 Scale: Unable to quantify Pertinent Non-Medical Issues: Psychosocial:Patient was raised in [place], [place]. 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 Patient worked 2 jobs at a time most of her life. Patient has been twice. Her first is and she is from her second . Patient has 9 living adult children. Spiritual:Patient is a Protestant Legal:Patient never completed advance directives. She is . Ethical issues impacting care:None identified at this time. Important Contacts: Carmen Noel(daughter) [phone] Serving as Health care proxy (Lives with patient) Kunal Pedro(son/eldest) [phone] in [place] Opted out Jabari Noel(son) [phone] -opted out Annia Pedro(daughter) - no available phone number lives in [place], [place] Scotty Pedro(son) lives in [place], [place] . No available number Isiah Pedro (son) [phone]-Opted out Tae Noel(daughter) [phone]-Opted out Leti (daughter) [phone] -Opted out Anthony Pedro (son) [phone]-Opted out Prognosis: Ms. Noel is a 68 years old female with past medical history of chronic kidney disease, dementia, hypertension, peripheral vascular disease, history of CVA, hepatitis C and monoclonal gammopathy. Patient was brought to the emergency room by family member on 01/09/18 for further evaluation of pain in his right hip and back following a witnessed mechanical fall. Hip and pelvis x-ray revealed right femoral neck fracture and she underwent right hip bipolar hemiarthroplasty on 01/10/18. Clinical course complicated with lethargy, dysphagia, worsening renal function and inability to participate in physical therapy due to cognitive impairment. Given ongoing multiple comorbidities, patient remains at high risk for further complications, deterioration and decline. Code Status: No Code DNR Plan: PLAN: Legal decision maker:Patient has dementia and is not able to participate in medical decision making and is most likely able to regain that capacity. Patient never completed advance directives. Patient is and has 9 adult children whom according to [place] Statute would serve as her health care proxys. 5 of patient`s children have opted out of decision making and 3 other children were not able to be reached. Patient's daughter Carmen Noel is currently serving as health care proxy at this time. Goals: Comfort care only- Family proceeding with compassionate withdrawal from life support. Hospice consulted per family request. CODE STATUS: No Code- DNR/DNI Met with Carmen on [facility]. She has decided to forgo any further aggressive treatment and proceed with compassionate withdrawal from life today support with the support of her family today. She also wants to transition patient to comfort care only through hospice services. Hospice consulted per family request. Anticipatory guidance regarding compassionate withdrawal provided. SYMPTOMS: * Pain: Patient recently had a mechanical fall. Hip and pelvis x-ray revealed right femoral neck fracture and she underwent right hip bipolar hemiarthroplasty. Patient currently has acetaminophen 650 mg every 4 prn. No signs of pain noted. Continue to monitor for pain. * Shortness of breath: Intubated on 01/14/18. Sputum culture collected on 01/14 + for ESBL E. coli. On antibiotics and DuoNeb's every 6 hours ATC and prn. On CPAP trials but showing no neurological improvement. Family does not want to proceed with tracheostomy and PEG placement * Debility: Progressive. Patient has history of dementia.Per family patient has been progressively declining in the past few months. Patient recently fell and underwent hip surgery. Physical therapy, speech therapy consulted. Given patient's cognitive limitation and multiple embolic strokes, she most likely will not be able to participate in rehabilitation. Palliative care will continue to follow the patient during hospital course as condition evolves, to assist patient/decision-maker with understanding of their medical conditions, weighing benefits/burdens of treatment options, for clarification of goals of treatment. Additionally will assist with any symptoms of palliative concern Attestation Attestation: To help prompt me to consider important information that might be impacting today's encounter and assessment, information from prior notes written by myself or my colleagues may have been "brought forward" into today's note. My signature on this note, however, is an attestation that I personally performed the exam, history, and/or decision-making noted today, and, unless otherwise indicated, the interactions with patient, family, and staff as well as the review of records all occurred today. I also attest that the listed assessment and stated plan reflect my best clinical judgment today based on the combination of historical information, prior notes, and today's exam/ interactions. When time spent is documented, it refers only to time spent today by the signer, or if indicated, combined time spent today by collaborating physician/nurse practitioner.
--- NOTE | 2018-01-30 14:33 | P.PNNP ---
Subjective Interval history: Condition unchanged. Creatinine at 5.27 today. <Emani Avery - Last Filed: 01/30/18 14:31> Physical Exam Vital signs: Vital Signs 01/29/18 16:00 01/29/18 17:08 01/29/18 18:00 Temperature 98.5 F Pulse Rate 71 74 Respiratory Rate 17 16 Blood Pressure 137/71 Pulse Oximetry 99 99 01/29/18 19:58 01/29/18 20:00 01/29/18 22:00 Temperature 99.0 F Pulse Rate 78 79 Respiratory Rate 15 15 Blood Pressure 133/67 Pulse Oximetry 99 99 01/30/18 00:00 01/30/18 01:46 01/30/18 02:00 Temperature 99.5 F Pulse Rate 81 79 Respiratory Rate 12 15 Blood Pressure 151/83 H Pulse Oximetry 99 100 01/30/18 04:00 01/30/18 04:25 01/30/18 06:00 Temperature 99.5 F Pulse Rate 78 76 Respiratory Rate 16 15 Blood Pressure 135/77 Pulse Oximetry 99 93 L 01/30/18 08:00 01/30/18 08:17 01/30/18 12:20 Temperature 98.7 F Pulse Rate 78 Respiratory Rate 23 17 22 Blood Pressure 141/73 H Pulse Oximetry 99 97 94 L Intake & Output 01/29/18 01/30/18 01/30/18 18:59 06:59 18:59 Intake Total 606 / 606 772 / 772 Output Total 600 / 600 750 / 750 Balance 6 6 Intake: Tube Feeding 406 / 406 452 / 452 Tube Irrigant 120 / 120 Water Bolus Amount 200 / 200 200 / 200 Output: Urine Amount (Catheter) 600 / 600 750 / 750 Indwelling Urethral Catheter 600 / 600 750 / 750 Other: Date of Last Bowel Movement 01/24/18 01/24/18 01/24/18 # Bowel Movements 0 - Constitutional no acute distress - Routine Neck Exam Absent: JVD - Routine Respiratory Exam Present: patient mechanically ventilated - Routine Cardiovascular Exam Present: RRR - Routine Abdominal Exam Present: soft, normoactive bowel sounds - Routine Extremities Exam Present: edema - Routine Skin Exam Present: dry, warm - Urinary Catheter Management Indwelling Urethral Catheter Cath placed during this visit: yes Urethral indwelling: Yes Reason for continuing: Terminally ill/Comfort care Insertion date: 02/09/18 Insertion time: 12:15 <Emani Avery - Last Filed: 01/30/18 14:31> Vital signs: Vital Signs 01/29/18 17:08 01/29/18 18:00 01/29/18 19:58 Temperature Pulse Rate 74 Respiratory Rate 16 15 Blood Pressure Pulse Oximetry 99 99 01/29/18 20:00 01/29/18 22:00 01/30/18 00:00 Temperature 99.0 F 99.5 F Pulse Rate 78 79 81 Respiratory Rate 15 12 Blood Pressure 133/67 151/83 H Pulse Oximetry 99 99 01/30/18 01:46 01/30/18 02:00 01/30/18 04:00 Temperature 99.5 F Pulse Rate 79 78 Respiratory Rate 15 16 Blood Pressure 135/77 Pulse Oximetry 100 99 01/30/18 04:25 01/30/18 06:00 01/30/18 08:00 Temperature 98.7 F Pulse Rate 76 78 Respiratory Rate 15 23 Blood Pressure 141/73 H Pulse Oximetry 93 L 99 01/30/18 08:17 01/30/18 12:20 Temperature Pulse Rate Respiratory Rate 17 22 Blood Pressure Pulse Oximetry 97 94 L Intake & Output 01/29/18 01/30/18 01/30/18 18:59 06:59 18:59 Intake Total 606 / 606 772 / 772 Output Total 600 / 600 750 / 750 Balance Intake: Tube Feeding 406 / 406 452 / 452 Tube Irrigant 120 / 120 Water Bolus Amount 200 / 200 200 / 200 Output: Urine Amount (Catheter) 600 / 600 750 / 750 Indwelling Urethral Catheter 600 / 600 750 / 750 Other: Date of Last Bowel Movement 01/24/18 01/24/18 01/24/18 # Bowel Movements 0 - Urinary Catheter Management Indwelling Urethral Catheter Cath placed during this visit: no <Norberto Sanchez - Last Filed: 01/30/18 16:16> Assessment and Plan - Assessment (1) Acute kidney injury Code(s): N17.9 - Acute kidney failure, unspecified Status: Acute Plan: kidney ultrasound showed echogenic kidney. Creatinine at 5.48 - > 5.3 -> 5.38 ->5.43 ->5.35 ->5.27 ->5.27 Urinary output 1.3 L/ 24 hours Patient is a poor candidate for hemodialysis Avoid nephrotoxins French catheter Will continue to monitor urinary output and BMP. No acute need for dialysis at this time Continue to follow goals of care with patient's family, palliative care following Condition unchanged <Emani Avery - Last Filed: 01/30/18 14:31> - Assessment (1) Acute kidney injury Code(s): N17.9 - Acute kidney failure, unspecified Status: Acute Plan: Patient now for with drawl of treatment. Creatinine remain almost same. I will sign off from Nephrology. <Norberto Sanchez - Last Filed: 01/30/18 16:16>
[2018-01-30] MEDS ORDERED: HYDROmorphone PF Inj 2 MG/ML Vial IV.PUSH PRN (15:03)
[2018-01-30] MEDS ORDERED: Hyoscyamine Inj 0.5 MG/ML Ampul IV.PUSH ONE (15:03)
[2018-01-30] MEDS ORDERED: HYDROmorphone PF Inj 2 MG/ML Vial IV.PUSH ONE ×2 (15:03)
[2018-01-30] MEDS ORDERED: Acetaminophen 650 MG Supp RECTAL PRN (15:03)
[2018-01-30] MEDS ORDERED: Bisacodyl 10 MG Supp RECTAL PRN (15:03)
[2018-01-30] MEDS ORDERED: Hyoscyamine Inj 0.5 MG/ML Ampul IV.PUSH PRN (15:03)
[2018-01-30] MEDS: HYDROmorphone PF Inj 2 MG/ML Vial IV.PUSH SCH ×2 (16:19→22:50)
[2018-01-30] MEDS: HYDROmorphone PF Inj 2 MG/ML Vial IV.PUSH PRN ×2 (16:48→18:05)
[2018-01-31] MEDS: HYDROmorphone PF Inj 2 MG/ML Vial IV.PUSH SCH ×5 (01:44→16:36)
[2018-01-31] MEDS: Oral Hygiene Kit OROPHARYNG SCH ×4 (01:48→16:36)
[2018-01-31] MEDS: Artificial Tears Opth Drops 15 ML Bottle EACH EYE SCH ×2 (05:15→11:43)
[2018-01-31] MEDS: Chlorhexidine 0.12% Oral Kit 15 ML UDC SWISH-SPIT SCH (08:36)
--- NOTE | 2018-01-31 08:53 | P.PNCC ---
Subjective Subjective Remarks/Hospital Course: Patient is a 72-year-old female with history of chronic kidney disease, dementia , hepatitis C, hypertension, monoclonal gammopathy who was admitted to the hospitalist service after she sustained right femoral neck fracture from a fall , she underwent right hip hemiarthroplasty 01/10/18. Patient has stage IV kidney disease and was admitted with BUN 78 creatinine of 4. Patient had been declining since admission was lethargic since yesterday. A CT of the head was negative. Became more unresponsive and unarousable since today afternoon. BUN/ creatinine today 104/5.74. Due to worsening mental status she was brought to the ICU and critical care medicine was consulted. Palliative care was consulted due to advanced dementia is worsening chronic kidney disease and encephalopathy but family wants aggressive care. I evaluated the patient in the ICU, patient is completely unresponsive, not waking up to painful stimuli. Gurgling breath sounds not protecting airway. Emergently intubated and placed on mechanical ventilation. Suctioned out large amount of moderate white to yellow thick secretions from the glottic opening. Patient probably has pneumonia based on secretions and bilateral alveolar infiltrates on chest x- ray. Worsening mental status most likely secondary to metabolic encephalopathy , antibiotics broadened to Zosyn and vancomycin. SUBJ 01/15: Remains intubated critically ill. BUN/creatinine remains elevated at 109/5.7. Chest x-ray shows persistent bilateral left more than right infiltrates. Patient remains encephalopathy go for sedation. Multiple nonsustained episodes of ventricular tachycardia. Had extensive discussion with daughter at the bedside and son over the phone. I encouraged him to consider DNR status given patient's dementia, worsening renal failure, cardiac dysrhythmias and sepsis now 01/16: Patient remains intubated off sedation for 24 hours. Remains unresponsive very slight withdrawal to pain. Sputum culture growing GNR. BUN creatinine slightly improved 97/5.43. Urine output approximately 800 mL in 24 hours. Hb 6.8, 1U PRBC ordered. Updated son at bedside 01/17: Remains severely encephalopathic. MRI brain yesterday shows multiple embolic lacunar infarct involving frontal lobes, right basal ganglia and left temporal occipital lobe. Severe diffuse periventricular and subcortical white matter small vessel ischemic changes are again noted. Pontine ischemic changes are also noted. Also diffuse probable amyloid angiopathy or hypertensive microhemorrhages, scattered old lacunar infarcts. Neurology had been consulted. Sputum culture growing ESBL E. coli Zosyn DC'd and ertapenem started 630: Remains severely encephalopathy. Continues to have no spontaneous eye opening. Renal function worsening. BUN/cr 111/5.7. Urine output 1 L in 24 hours 01/19: Remains intubated off all sedation no improvement in neuro status intermittently moves extremities spontaneously. Did not follow commands. Diminishing urine output 500 mL in 24 hours 01/20: No change in clinical condition remains unresponsive very weak withdrawal to pain. Urine output 750 mL in 24 hours, no acute indication for hemodialysis. Subjective: 01/21 [facility] palliative care met with family today and they elected to change CODE STATUS to DO NOT RESUSCITATE. They indicated they would not want trach and PEG , needing time to discuss. I reached out to Carmen and she says she has no further questions at this time. 01/22 No neuro change. Family indicates no trach/peg. Awaiting decision regarding withdrawal 01/23: Remains encephalopathic, orally intubated on mechanical ventilation. Not requiring any sedation. Tolerating tube feeds. 01/24: Remains encephalopathic, orally intubated on mechanical ventilation. Tolerating tube feeds. Family deciding regarding goals of therapy and possible de-escalation of therapy. 01/25: Afebrile. Gaze to the right. Withdraws to pain 4. Tolerating tube feeds. Positive BM. SUBJECTIVE: 01/26: Afebrile. Bradycardic this a.m. Slightly breathing over the ventilator at time. He does have gaze to the right. Withdraws to pain 4. Tolerating tube feeds. Neurologically unchanged. 01/27: No change in neurological status. Rarely breathes over vent. Unable to extubate. 01/28: No improvement in neurologic function. Respiratory effort and stamina not sufficient to allow for extubation. Renal function continues to deteriorate. 01/29: She remains was severely impaired neurological system. No evidence of improvement over the past several days. Unable to extubate at this time due to poor spontaneous respiratory effort. Family appears to have decided against performing additional invasive procedures. 01/30: General clinical condition remains poor. Chance for a meaningful recovery are minimal to zero. She would undoubtedly be ventilator dependent and definitely and require a skilled facility. 01/31: Extubation yesterday and withdrawal of other artificial support. Patient is tachycardic and has some respiratory distress. Family is adamant that she not receive any sedation for comfort. Objective Vital Signs / I&O: Vital Signs 01/30/18 12:20 01/30/18 19:15 01/30/18 20:00 Temperature 96.4 F L Pulse Rate 74 Respiratory Rate 22 Blood Pressure 124/69 Pulse Oximetry 94 L Intake & Output 01/30/18 01/31/18 01/31/18 18:59 06:59 18:59 Other: Date of Last Bowel Movement 01/24/18 Result Diagrams: 01/30/18 05:23 01/30/18 05:23 Objective Remarks: GENERAL: -[place] female lying in bed, off all sedation, unresponsive. SKIN: No rashes, ecchymoses or lesions. HEAD: Atraumatic. Normocephalic. EYES: Pupils equal round. No spontaneous eye opening ENT: Nose without bleeding, Edentulous. Orotracheally intubated NECK: Trachea midline. CARDIOVASCULAR: S1 S2 normal rhythm without murmurs, gallops, or rubs. No JVD. RESPIRATORY: Absent breath sounds bases with scattered rhonchi bilaterally above.. Poor bilateral air movement. GASTROINTESTINAL: Abdomen soft, nondistended. Nontender. No guarding, bowel sounds present. MUSCULOSKELETAL: Knee immobilizer in place right knee. Distal circulation normal. NEUROLOGICAL: Patient remains unresponsive off sedation, R gaze preference with horizontal nystagmus. Assessment and Plan - Assessment and Plan Plan: A/P Assessment and Plan ASSESSMENT/PLAN: NEURO: Acute metabolic encephalopathy Multiple scattered embolic strokes, pontine ischemia Probable hypertensive microhemorrhages versus amyloid angiopathy Dementia -MRI Brain 01/17/18: Multiple embolic lacunar infarct involving frontal lobes, right basal ganglia and left temporal occipital lobe. Severe diffuse periventricular and subcortical white matter small vessel ischemic changes. Pontine ischemic changes noted. Probable amyloid angiopathy or hypertensive microhemorrhages, scattered old lacunar infarcts. -Neurology Dr. Hurt, would support transition to comfort if family elects. -Continue aspirin daily, unable to anticoagulate due to anemia requiring transfusion. Continue heparin 5000 units subcu every 12 -Encephalopathy most likely secondary to multiple embolic strokes, sepsis -CT of the head negative 01/13, EEG no seizures -Not on any sedation -Carotid Doppler no significant stenosis RESP: Acute hypoxemic respiratory failure HCAP/ESBL E Coli -Emergently intubated and placed on mechanical ventilation 01/14. -Daily spontaneous breathing trials but mental status will not permit extubation -DuoNeb every 6 hours scheduled and as needed -See ID for ABX -Palliative care discussed with family regarding tracheostomy and PEG tube. -Family declines further invasive therapy. CV: Nonsustained ventricular tachycardia Hypertension -Metoprolol IV as needed for PVCs/nonsustained V. tach -Serial cardiac enzymes. Prev Echo 2017, preserved LV ejection fraction, moderate LVH -Continue carvedilol continue oral hydralazine, nicardipine GI: -Suplena tube feeding at 40 mL/h per nutrition recommendations. -IV famotidine for GI prophylaxis : Acute on chronic kidney disease -Monitor renal function closely. French catheter. Nephrology following Dr. Sanchez Agree with nephrology, patient is a poor candidate for hemodialysis. ID: Severe sepsis Healthcare associated pneumonia /ESBL E. coli on culture 01/14 -ESBL isolation HEME: Anemia requiring transfusion -Monitor CBC, CMP, coags MSK: Right hip fracture status post hemiarthroplasty -Post op management per Ortho. PT ENDO: -Watch closely for hyperkalemia -Careful electrolyte replacement PROPH: -Bilateral lower extremity SCDs. Sq Heparin 5000 sq q12. IV famotidine 20 mg every 12 LINES: -Utilize peripheral IVs, CODE STATUS DO NOT RESUSCITATE Overall impression: MRI is consistent with physical exam. Remains ventilator dependent and now in renal failure. I highly recommend against dialysis. Patient's short-term prognosis is very poor. Meaningful neurologic recovery is highly unlikely. Comorbid conditions are leading toward permanent mechanical ventilation and hemodialysis. Family appears to be leaning toward compassionate extubation. I can see no road to a meaningful recovery even if dialysis and mechanical ventilation are performed permanently. Family elected for compassionate extubation and no further aggressive care. We have offered sedation and analgesia should they perceive that their mother is in distress.
--- NOTE | 2018-02-14 16:35 | P.DS ---
Date of admission: 01/10/18 02:58 Primary care physician: Sparkle Maldonado MD Attending physician on discharge: Duncan Flowers Brief History from admission: Patient pronounced at 1810 hours on January 31, 2018 after compassionate extubation and withdrawal of artificial support. Family is at the bedside. DS: Diagnosis - Discharge Diagnosis (1) Acute hypoxemic respiratory failure Status: Acute (2) Acute kidney injury Status: Acute (3) Debility Status: Acute (4) Dementia Status: Acute (5) Embolic infarction Status: Acute DS: Summary Hospital Course: Patient is a 72-year-old female with history of chronic kidney disease, dementia , hepatitis C, hypertension, monoclonal gammopathy who was admitted to the hospitalist service after she sustained right femoral neck fracture from a fall , she underwent right hip hemiarthroplasty 01/10/18. Patient has stage IV kidney disease and was admitted with BUN 78 creatinine of 4. Patient had been declining since admission was lethargic since yesterday. A CT of the head was negative. Became more unresponsive and unarousable since today afternoon. BUN/ creatinine today 104/5.74. Due to worsening mental status she was brought to the ICU and critical care medicine was consulted. Palliative care was consulted due to advanced dementia is worsening chronic kidney disease and encephalopathy but family wants aggressive care. I evaluated the patient in the ICU, patient is completely unresponsive, not waking up to painful stimuli. Gurgling breath sounds not protecting airway. Emergently intubated and placed on mechanical ventilation. Suctioned out large amount of moderate white to yellow thick secretions from the glottic opening. Patient probably has pneumonia based on secretions and bilateral alveolar infiltrates on chest x- ray. Worsening mental status most likely secondary to metabolic encephalopathy , antibiotics broadened to Zosyn and vancomycin. SUBJ 01/15: Remains intubated critically ill. BUN/creatinine remains elevated at 109/5.7. Chest x-ray shows persistent bilateral left more than right infiltrates. Patient remains encephalopathy go for sedation. Multiple nonsustained episodes of ventricular tachycardia. Had extensive discussion with daughter at the bedside and son over the phone. I encouraged him to consider DNR status given patient's dementia, worsening renal failure, cardiac dysrhythmias and sepsis now 01/16: Patient remains intubated off sedation for 24 hours. Remains unresponsive very slight withdrawal to pain. Sputum culture growing GNR. BUN creatinine slightly improved 97/5.43. Urine output approximately 800 mL in 24 hours. Hb 6.8, 1U PRBC ordered. Updated son at bedside 01/17: Remains severely encephalopathic. MRI brain yesterday shows multiple embolic lacunar infarct involving frontal lobes, right basal ganglia and left temporal occipital lobe. Severe diffuse periventricular and subcortical white matter small vessel ischemic changes are again noted. Pontine ischemic changes are also noted. Also diffuse probable amyloid angiopathy or hypertensive microhemorrhages, scattered old lacunar infarcts. Neurology had been consulted. Sputum culture growing ESBL E. coli Zosyn DC'd and ertapenem started 630: Remains severely encephalopathy. Continues to have no spontaneous eye opening. Renal function worsening. BUN/cr 111/5.7. Urine output 1 L in 24 hours 01/19: Remains intubated off all sedation no improvement in neuro status intermittently moves extremities spontaneously. Did not follow commands. Diminishing urine output 500 mL in 24 hours 01/20: No change in clinical condition remains unresponsive very weak withdrawal to pain. Urine output 750 mL in 24 hours, no acute indication for hemodialysis. Subjective: 01/21 [facility] palliative care met with family today and they elected to change CODE STATUS to DO NOT RESUSCITATE. They indicated they would not want trach and PEG , needing time to discuss. I reached out to Carmen and she says she has no further questions at this time. 01/22 No neuro change. Family indicates no trach/peg. Awaiting decision regarding withdrawal 01/23: Remains encephalopathic, orally intubated on mechanical ventilation. Not requiring any sedation. Tolerating tube feeds. 01/24: Remains encephalopathic, orally intubated on mechanical ventilation. Tolerating tube feeds. Family deciding regarding goals of therapy and possible de-escalation of therapy. 01/25: Afebrile. Gaze to the right. Withdraws to pain 4. Tolerating tube feeds. Positive BM. SUBJECTIVE: 01/26: Afebrile. Bradycardic this a.m. Slightly breathing over the ventilator at time. He does have gaze to the right. Withdraws to pain 4. Tolerating tube feeds. Neurologically unchanged. 01/27: No change in neurological status. Rarely breathes over vent. Unable to extubate. 01/28: No improvement in neurologic function. Respiratory effort and stamina not sufficient to allow for extubation. Renal function continues to deteriorate. 01/29: She remains was severely impaired neurological system. No evidence of improvement over the past several days. Unable to extubate at this time due to poor spontaneous respiratory effort. Family appears to have decided against performing additional invasive procedures. 01/30: General clinical condition remains poor. Chance for a meaningful recovery are minimal to zero. She would undoubtedly be ventilator dependent and definitely and require a skilled facility. 01/31: Extubation yesterday and withdrawal of other artificial support. Patient is tachycardic and has some respiratory distress. Family is adamant that she not receive any sedation for comfort. - Time Spent with Patient Total time spent providing and/or coordinating discharge services: Greater than 30 minutes - Quality: AMI Clinical Trial Participant: No - Quality: Stroke Symptom Onset Unknown: No - Quality: VTE Is this test being ordered to rule out VTE?: No Deep Vein Thrombosis/Pulmonary Embolism Present on Admission: No Exam Vital signs: P 78, BP 123/58 Narrative: . Results Procedures completed during hospitalization: none - Impressions ITS Impressions Hip X-Ray 01/23/18 00:00 CONCLUSION: Good position and alignment on this postoperative study. Chest X-Ray 01/27/18 06:00 CONCLUSION: 1. Cardiomegaly with pulmonary vascular congestion. 2. Worsening bilateral pleural effusions with associated airspace disease in the lower lung zones. Discharge Plan - Discharge Disposition Patient Disposition: 20 - Discharge Details Date/Time: 01/31/18 22:42 - Physicians Team Primary Care Provider: Sparkle Maldonado Attending Provider: Elvin Coles Other Providers: Leandra Francisco MD ; Clive Christopher MD ; Elvin Coles MD ; Norberto Sanchez MD ; Sanford Moreno MD ; Raleigh Messina MD ; Isidor Lutz MD ; Caprice Cartwright MD - Rxs /Orders / Referrals /Forms Prescriptions: Discontinued calcium carbonate-vitamin D3 600 mg(1,500mg) -200 unit Tablet 1 tab PO BID calcium carbonate-vitamin D3 [Calcium 600 with Vitamin D3] 600 mg(1,500mg) - 200 unit Tablet 1 tab PO BID carvedilol 12.5 mg Tablet 25 mg PO Q12HR carvedilol [Coreg] 6.25 mg Tablet 6.25 mg PO Q12H cholecalciferol (vitamin D3) [Vitamin D3] 2,000 unit Capsule 2,000 unit PO DAILY ergocalciferol (vitamin D2) 50,000 unit Capsule 50,000 unit PO QWEEK hydralazine 100 mg Tablet 100 mg PO Q8H hydralazine 100 mg Tablet 100 mg PO Q8H hydrocodone-acetaminophen 7.5-325 mg Tablet 1 tab PO Q4H PRN (Reason: Pain) nifedipine 90 mg Tablet Extended Release 90 mg PO DAILY nifedipine 90 mg Tablet Extended Release 90 mg PO ONCE rivaroxaban [Xarelto] 10 mg Tablet 10 mg PO DAILY sodium bicarbonate 650 mg Tablet 650 mg PO Q12H sodium bicarbonate 650 mg Tablet 650 mg PO Q12H Referrals: Sparkle Maldonado MD [Primary Care Provider] - See Instructions
== END 2018-01-31 22:42 | disposition expired ==
LOC: N03 01-10 02:58
PROVIDERS: ADMIT Internal Medicine; ATTEND Internal Medicine